=== PATIENT | male | born 1950 | race Caucasian/White ===

== ENCOUNTER 2018-06-14 11:33 | Emergency (ER) | payer MEDICARE ==
[2018-06-14] MEDS ORDERED: KETOROLAC 30 MG/ML 1 ML VIAL IVP STA (12:22)
--- NOTE | 2018-06-14 12:22 | ED ---
General Adult HPI - General Chief complaint: Recheck/Abnormal Lab/Rx Stated complaint: DIABETIC NERVE PAIN IN BOTH LEGS Time Seen by Provider: 06/14/18 11:58 Source: patient, family, RN notes reviewed Mode of arrival: wheelchair Limitations: physical limitation - History of Present Illness Initial comments: This is a 66-year-old male history diabetes and chronic neuropathic pain in his lower extremities for the past 6 years who is here today because of persistent pain that is unbearable. He states is 10/10 severity sharp going down both legs he states it hurts to stand up her hurts to move. He denies a loss of function however to his lower extremities dysuria hematuria or constipation or back pain. 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 He has been on different medications including Lyrica for over a year without relief - Related Data Home Medications Medication Instructions Recorded Confirmed Aspirin EC [Ecotrin] 325 mg PO DAILY 02/17/16 06/14/18 Hydroxyurea [Hydrea] 1,000 mg PO MOTUWETHFR 02/17/16 06/14/18 Insulin Glargine [Lantus] 35 unit SQ DAILY 02/17/16 06/14/18 Metoprolol Tartrate [Lopressor] 50 mg PO BID 02/17/16 06/14/18 amLODIPine BESYLATE [Norvasc] 10 mg PO DAILY 02/17/16 06/14/18 metFORMIN HCL [Glucophage] 500 mg PO BID 02/17/16 06/14/18 Clopidogrel [Plavix] 75 mg PO DAILY 03/11/16 06/14/18 Ferrous Sulfate [Iron (65 MG 325 mg PO HS 03/11/16 06/14/18 Elemental)] Cyanocobalamin (Vitamin B-12) 1,000 mcg PO MOWEFR 06/14/18 06/14/18 [Vitamin B-12] Hydroxyurea 500 mg PO SUSA 06/14/18 06/14/18 Levothyroxine Sodium [Synthroid] 125 mcg PO DAILY 06/14/18 06/14/18 Previous Rx's Medication Instructions Recorded methylPREDNISolone Dose Pack 4 mg PO DIRECTED #21 package 06/14/18 [Medrol Dose Pack] Allergies Allergy/AdvReac Type Severity Reaction Status Date / Time No Known Allergies Allergy Verified 06/14/18 13:14 Review of Systems ROS Statement: Those systems with pertinent positive or pertinent negative responses have been documented in the HPI. ROS Other: All systems not noted in ROS Statement are negative. Past Medical History Past Medical History: CVA/TIA, Diabetes Mellitus, Hyperlipidemia, Hypertension, Myocardial Infarction ([place]), Neurologic Disorder, Pneumonia, Thyroid Disorder Additional Past Medical History / Comment(s): Pt has AMS so PMH obtained from previous medical record and speaking with spouse and pt's sister. Pt recently admitted to [facility] on 02/18/16 and had cardiac cath-was transferred to [facility] for CABG and aortic valve replacement. 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 Last Myocardial Infarction Date:: 02/17/2016 History of Any Multi-Drug Resistant Organisms: None Reported Past Surgical History: Coronary Bypass/CABG, Heart Catheterization, Orthopedic Surgery Additional Past Surgical History / Comment(s): 02/19/16 cardiac cath, 02/24/16 CABG quadrupal with aortic valve replacement, RT HAND INDEX FINGER BONE CHIP REMOVED, RT WRIST(JAMMED) PT STATED THEY CUT THE BONE AND REALIGNED IT. Past Anesthesia/Blood Transfusion Reactions: No Reported Reaction Past Psychological History: No Psychological Hx Reported Smoking Status: Current every day smoker Past Alcohol Use History: Heavy Past Drug Use History: None Reported - Past Family History Father Family Medical History: Coronary Artery Disease (CAD) Additional Family Medical History / Comment(s): VASCULAR PROBLEMS/valve replacement. Mother Family Medical History: Coronary Artery Disease (CAD) Additional Family Medical History / Comment(s): VASCULAR PROBLEMS HAD PIG VALVE. General Exam - General Exam Comments Initial Comments: This is a well-developed well-nourished awake alert oriented 3 male Limitations: physical limitation General appearance: alert, anxious Head exam: Present: atraumatic, normocephalic, normal inspection Eye exam: Present: normal appearance, PERRL, EOMI. Absent: scleral icterus, conjunctival injection, periorbital swelling ENT exam: Present: normal exam, mucous membranes moist Neck exam: Present: normal inspection. Absent: tenderness, meningismus, lymphadenopathy Respiratory exam: Present: normal lung sounds bilaterally. Absent: respiratory distress, wheezes, rales, rhonchi, stridor Cardiovascular Exam: Present: regular rate, normal rhythm, normal heart sounds. Absent: systolic murmur, diastolic murmur, rubs, gallop, clicks GI/Abdominal exam: Present: soft, normal bowel sounds. Absent: distended, tenderness, guarding, rebound, rigid Extremities exam: Present: normal inspection, full ROM, tenderness, normal capillary refill, other (Tenderness palpation over the gluteus musculature especially on the right compared to the left.). Absent: pedal edema, joint swelling, calf tenderness Back exam: Present: normal inspection Neurological exam: Present: alert, oriented X3, CN II-XII intact Psychiatric exam: Present: normal affect, normal mood Skin exam: Present: warm, dry, intact, normal color. Absent: rash Course Vital Signs 06/14/18 06/14/18 11:54 13:50 Temperature 98.1 F Pulse Rate 80 79 Respiratory 20 18 Rate Blood Pressure 138/80 142/77 O2 Sat by Pulse 99 98 Oximetry Medical Decision Making - Medical Decision Making I did discuss findings with patient has he is feeling improved be placed on steroids and will follow-up with his doctor outpatient. Besides neuropathic pain there is likely a component of sciatica pain. - Lab Data Result diagrams: 06/14/18 12:31 06/14/18 12:31 Lab Results 06/14/18 06/14/18 06/14/18 Range/Units 12:31 12:31 12:31 WBC 3.6 L (3.8-10.6) k/uL RBC 3.00 L (4.30-5.90) m/uL Hgb 11.7 L (13.0-17.5) gm/dL Hct 34.8 L (39.0-53.0) % MCV 116.3 H (80.0-100.0) fL MCH 39.2 H (25.0-35.0) pg MCHC 33.7 (31.0-37.0) g/dL RDW 14.8 (11.5-15.5) % Plt Count 345 (150-450) k/uL Neutrophils % 57 % Lymphocytes % 23 % Monocytes % 6 % Eosinophils % 11 % Basophils % 0 % Neutrophils # 2.1 (1.3-7.7) k/uL Lymphocytes # 0.8 L (1.0-4.8) k/uL Monocytes # 0.2 (0-1.0) k/uL Eosinophils # 0.4 (0-0.7) k/uL Basophils # 0.0 (0-0.2) k/uL Polychromasia Present Poikilocytosis (manual Present Anisocytosis (manual) Present Macrocytosis Marked Sodium 138 (137-145) mmol/L Potassium 3.9 (3.5-5.1) mmol/L Chloride 108 H (98-107) mmol/L Carbon Dioxide 21 L (22-30) mmol/L Anion Gap 9 mmol/L BUN 24 H (9-20) mg/dL Creatinine 1.20 (0.66-1.25) mg/dL Est GFR (CKD-EPI)AfAm 71 (>60 ml/min/1.73 sqM) Est GFR (CKD-EPI)NonAf 62 (>60 ml/min/1.73 sqM) Glucose 326 H (74-99) mg/dL Calcium 9.4 (8.4-10.2) mg/dL Magnesium 1.6 (1.6-2.3) mg/dL Total Bilirubin 0.3 (0.2-1.3) mg/dL AST 15 L (17-59) U/L ALT 24 (21-72) U/L Alkaline Phosphatase 105 (38-126) U/L Total Creatine Kinase 35 L (55-170) U/L CK-MB (CK-2) 1.0 (0.0-2.4) ng/mL CK-MB (CK-2) Rel Index 2.9 Total Protein 6.1 L (6.3-8.2) g/dL Albumin 3.6 (3.5-5.0) g/dL - Radiology Data Radiology results: report reviewed (I did review the imaging and report evidence of degenerative changes but no acute findings.), image reviewed Disposition Clinical Impression: Sciatica, Peripheral neuropathy Disposition: HOME SELF-CARE Condition: Good Instructions: Sciatica (ED), Diabetic Peripheral Neuropathy (ED), Peripheral Neuropathy (ED) Prescriptions: methylPREDNISolone Dose Pack [Medrol Dose Pack] 4 mg PO DIRECTED #21 package Is patient prescribed a controlled substance at d/c from ED?: No Referrals: [facility],Clinic [Primary Care Provider] - 1-2 days
[2018-06-14 12:45] LABS: Basophils % (A) 0 %; Eosinophils # (A) 0.4 k/uL (0-0.7); Eosinophils % (A) 11 %; HCT 34.8 % (39.0-53.0); HGB 11.7 gm/dL (13.0-17.5); Lymphocytes # (A) 0.8 k/uL (1.0-4.8); Lymphocytes % (A) 23 %; MCH 39.2 pg (25.0-35.0); MCHC 33.7 g/dL (31.0-37.0); MCV 116.3 fL (80.0-100.0); Macrocytosis Marked; Mean Platelet Volume 6.4; Monocytes # (A) 0.2 k/uL (0-1.0); Monocytes % (A) 6 %; Neutrophils # (A) 2.1 k/uL (1.3-7.7); Neutrophils % (A) 57 %; Platelet Count 345 k/uL (150-450); RDW 14.8 % (11.5-15.5); WBC 3.6 k/uL (3.8-10.6)
[2018-06-14 12:58] LABS: Albumin 3.6 g/dL (3.5-5.0); Calcium 9.4 mg/dL (8.4-10.2); Magnesium 1.6 mg/dL (1.6-2.3); Potassium 3.9 mmol/L (3.5-5.1); Total Bilirubin 0.3 mg/dL (0.2-1.3); Total Protein 6.1 g/dL (6.3-8.2)
--- NOTE | 2018-06-14 13:16 | XR ---
EXAM TYPE: LUMBAR SPINE X RAY SERIES COMPARISON: NONE HISTORY: Back pain TECHNIQUE: 4 views are submitted. FINDINGS: Alignment is anatomic. The pedicles are intact. The transverse processes are intact. There is no s pondylolysis or spondylolisthesis. Multilevel hypertrophic and degenerative disc disease noted. Vasc ular calcifications are noted. Calcifications overlying both upper quadrants could be related to the kidneys. Mild diffuse osteopenia and multilevel degenerative disc disease noted. IMPRESSION: 1. Multilevel degenerative disc disease and hypertrophic changes with facet arthropathy. 2. Bilateral upper quadrant calcifications likely related to the kidneys.
[2018-06-14 13:33] LABS: Anisocytosis (M) Present; Poikilocytosis (M) Present; Polychromasia Present
[2018-06-14 13:51] VITALS: BP 142/77; PULSE 79; RESP 18
[2018-06-14] MEDS ORDERED: methylPREDNISolone SOD SUCCI 125 MG/2 ML VIAL IV STA (13:56)
[2018-06-14 14:39] VITALS: TEMP 97.9
== END 2018-06-14 14:37 | disposition home or self-care (01) ==
LOC: EC 11:33
DX: E11.42 Type 2 diabetes mellitus with diabetic polyneuropathy (principal); M54.31 Sciatica, right side; E78.5 Hyperlipidemia, unspecified; I10 Essential (primary) hypertension; I25.2 Old myocardial infarction; E03.9 Hypothyroidism, unspecified; F17.200 Nicotine dependence, unspecified, uncomplicated; Z95.1 Presence of aortocoronary bypass graft; Z95.2 Presence of prosthetic heart valve; Z98.890 Other specified postprocedural states; Z79.02 Long term (current) use of antithrombotics/antiplatelets; Z79.4 Long term (current) use of insulin; Z79.899 Other long term (current) drug therapy
CPT/HCPCS: 36415; 80053; 82550; 82553; 83735; 85025; 72110; 99283; 96374; 96375; J2930; J1885

== ENCOUNTER 2018-06-25 23:26 | Emergency (ER) | payer MEDICARE ==
[2018-06-25 23:30] VITALS: BP 173/88; PULSE 90; RESP 16; TEMP 98.4
[2018-06-25] MEDS ORDERED: LIDOCAINE 1% INJ 10MG/ML (20 ML MDV) SQ ONE (23:42)
[2018-06-26] MEDS ORDERED: DOXYCYCLINE MONOHYDRATE 100 MG CAPSULE PO STA (00:01)
--- NOTE | 2018-06-26 00:03 | ED ---
Skin/Abscess/FB HPI - General Chief complaint: Skin/Abscess/Foreign Body Stated complaint: Male Time Seen by Provider: 06/25/18 23:37 Source: patient Mode of arrival: wheelchair Limitations: no limitations - History of Present Illness Initial comments: 67-year-old male patient presents the emergency department today for evaluation of an abscess to his penile shaft. Patient states that it started as a pimple approximately 3 days ago and has been growing in size and becoming more painful since. Patient denies any drainage from the area. He denies any fevers or chills. Denies any difficulty with urination. Denies any history of similar symptoms. Does have a history of diabetes and hypertension. Patient denies any recent shortness breath, chest pain, abdominal pain, nausea, vomiting, diarrhea , constipation, back pain, numbness, tingling, dizziness, weakness, hematuria, dysuria, urinary urgency, urinary frequency, headache, visual changes, or any other complaints. - Related Data Home Medications Medication Instructions Recorded Confirmed Aspirin EC [Ecotrin] 325 mg PO DAILY 02/17/16 06/14/18 Hydroxyurea [Hydrea] 1,000 mg PO MOTUWETHFR 02/17/16 06/14/18 Insulin Glargine [Lantus] 35 unit SQ DAILY 02/17/16 06/14/18 Metoprolol Tartrate [Lopressor] 50 mg PO BID 02/17/16 06/14/18 amLODIPine BESYLATE [Norvasc] 10 mg PO DAILY 02/17/16 06/14/18 metFORMIN HCL [Glucophage] 500 mg PO BID 02/17/16 06/14/18 Clopidogrel [Plavix] 75 mg PO DAILY 03/11/16 06/14/18 Ferrous Sulfate [Iron (65 MG 325 mg PO HS 03/11/16 06/14/18 Elemental)] Cyanocobalamin (Vitamin B-12) 1,000 mcg PO MOWEFR 06/14/18 06/14/18 [Vitamin B-12] Hydroxyurea 500 mg PO SUSA 06/14/18 06/14/18 Levothyroxine Sodium [Synthroid] 125 mcg PO DAILY 06/14/18 06/14/18 Previous Rx's Medication Instructions Recorded methylPREDNISolone Dose Pack 4 mg PO DIRECTED #21 package 06/14/18 [Medrol Dose Pack] Doxycycline Hyclate 100 mg PO BID #20 tab 06/26/18 Allergies Allergy/AdvReac Type Severity Reaction Status Date / Time No Known Allergies Allergy Verified 06/25/18 23:30 Review of Systems ROS Statement: Those systems with pertinent positive or pertinent negative responses have been documented in the HPI. ROS Other: All systems not noted in ROS Statement are negative. Past Medical History Past Medical History: CVA/TIA, Diabetes Mellitus, Hyperlipidemia, Hypertension, Myocardial Infarction ([place]), Neurologic Disorder, Pneumonia, Thyroid Disorder Additional Past Medical History / Comment(s): Pt has AMS so PMH obtained from previous medical record and speaking with spouse and pt's sister. Pt recently admitted to [facility] on 02/18/16 and had cardiac cath-was transferred to [facility] for CABG and aortic valve replacement. 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 Last Myocardial Infarction Date:: 02/17/2016 History of Any Multi-Drug Resistant Organisms: None Reported Past Surgical History: Coronary Bypass/CABG, Heart Catheterization, Orthopedic Surgery Additional Past Surgical History / Comment(s): 02/19/16 cardiac cath, 02/24/16 CABG quadrupal with aortic valve replacement, RT HAND INDEX FINGER BONE CHIP REMOVED, RT WRIST(JAMMED) PT STATED THEY CUT THE BONE AND REALIGNED IT. Past Anesthesia/Blood Transfusion Reactions: No Reported Reaction Past Psychological History: No Psychological Hx Reported Smoking Status: Former smoker Past Alcohol Use History: None Reported Past Drug Use History: None Reported - Past Family History Father Family Medical History: Coronary Artery Disease (CAD) Additional Family Medical History / Comment(s): VASCULAR PROBLEMS/valve replacement. Mother Family Medical History: Coronary Artery Disease (CAD) Additional Family Medical History / Comment(s): VASCULAR PROBLEMS HAD PIG VALVE. General Exam Limitations: no limitations General appearance: alert, in no apparent distress Eye exam: Present: normal appearance, PERRL, EOMI. Absent: scleral icterus, conjunctival injection, periorbital swelling ENT exam: Present: normal exam, normal oropharynx, mucous membranes moist Respiratory exam: Present: normal lung sounds bilaterally. Absent: respiratory distress, wheezes, rales, rhonchi, stridor Cardiovascular Exam: Present: regular rate, normal rhythm, normal heart sounds. Absent: systolic murmur, diastolic murmur, rubs, gallop, clicks exam: Present: other (1cm abscess to the foreskin of the penis.) Neurological exam: Present: alert, oriented X3, CN II-XII intact Psychiatric exam: Present: normal affect, normal mood Skin exam: Present: warm, dry, intact, normal color. Absent: rash Course Vital Signs 06/25/18 23:27 Temperature 98.4 F Pulse Rate 90 Respiratory 16 Rate Blood Pressure 173/88 O2 Sat by Pulse 97 Oximetry Procedures - Incision & Drainage Indication: abscess Site: penis Size (cm): 1 Anesthetic Used: lidocaine 1% Amount (mLs): 1 I&D Cleaning Method: Betadine Needle Aspiration Performed?: Yes Irrigation Performed?: No I&D Drainage Obtained: Pus, Blood Culture Obtained?: Yes Patient Tolerated Procedure: well Medical Decision Making - Medical Decision Making 67-year-old male patient presents the emergency department today for evaluation of abscess to the foreskin of his penis. Physical examination did reveal a 1 cm abscess to the foreskin with minimal surrounding erythema. Area was fluctuant. Did puncture abscess with 18-gauge needle did get output of: Bloody drainage. Did obtain a culture. Patient tolerated procedure well. The patient will be discharged home to follow-up with urologist for further evaluation. He is instructed to complete antibiotic prescription and full. Did educate regarding application of warm compresses. Return parameters discussed in detail. He verbalizes understanding and agrees with this plan. Disposition Clinical Impression: Penile abscess Disposition: HOME SELF-CARE Condition: Good Instructions: Abscess Incision and Drainage (ED), Abscess (ED) Additional Instructions: Apply warm compresses to the area at least 4 times daily. Complete antibiotic prescription in full. Follow-up with urology for recheck in 1-2 days. Return here immediately for any new, worsening, or concerning symptoms. Prescriptions: Doxycycline Hyclate 100 mg PO BID #20 tab Is patient prescribed a controlled substance at d/c from ED?: No Referrals: [facility],Clinic [Primary Care Provider] - 1-2 days Time of Disposition: 00:03
== END 2018-06-26 00:21 | disposition home or self-care (01) ==
LOC: EC 23:26
DX: N48.21 Abscess of corpus cavernosum and penis (principal); E11.9 Type 2 diabetes mellitus without complications; E78.5 Hyperlipidemia, unspecified; I10 Essential (primary) hypertension; I25.2 Old myocardial infarction; E03.9 Hypothyroidism, unspecified; Z86.73 Personal history of transient ischemic attack (TIA), and cerebral infarction without residual deficits; Z87.891 Personal history of nicotine dependence; Z79.4 Long term (current) use of insulin; Z79.01 Long term (current) use of anticoagulants; Z79.82 Long term (current) use of aspirin; Z79.899 Other long term (current) drug therapy; Z95.1 Presence of aortocoronary bypass graft; Z95.2 Presence of prosthetic heart valve; Z95.818 Presence of other cardiac implants and grafts; Z82.49 Family history of ischemic heart disease and other diseases of the circulatory system
CPT/HCPCS: 87070; 87205; 99283; 10060; J2001

== ENCOUNTER 2018-07-04 18:29 | Inpatient (IN) | payer MEDICARE ==
[2018-07-04] MEDS ORDERED: METOPROLOL TARTRATE 5 MG/5 ML VIAL IVP STA (18:38)
[2018-07-04] MEDS: METOPROLOL TARTRATE 5 MG/5 ML VIAL IVP SCH ×3 (18:47→19:13)
[2018-07-04 18:55] LABS: Basophils % (A) 0 %; Eosinophils # (A) 0.3 k/uL (0-0.7); Eosinophils % (A) 6 %; HCT 35.4 % (39.0-53.0); HGB 11.4 gm/dL (13.0-17.5); Lymphocytes # (A) 1.2 k/uL (1.0-4.8); Lymphocytes % (A) 27 %; MCH 36.9 pg (25.0-35.0); MCHC 32.3 g/dL (31.0-37.0); MCV 114.4 fL (80.0-100.0); Macrocytosis Marked; Mean Platelet Volume 6.6; Monocytes # (A) 0.3 k/uL (0-1.0); Monocytes % (A) 7 %; Neutrophils # (A) 2.6 k/uL (1.3-7.7); Neutrophils % (A) 57 %; Platelet Count 367 k/uL (150-450); RBC 3.09 m/uL (4.30-5.90); RDW 14.6 % (11.5-15.5); WBC 4.6 k/uL (3.8-10.6)
[2018-07-04 18:56] LABS: Prothrombin Time 9.6 sec (9.0-12.0)
[2018-07-04 19:05] LABS: Albumin 3.8 g/dL (3.5-5.0); Magnesium 1.5 mg/dL (1.6-2.3); Partial Thromboplastin Time 19.9 sec (22.0-30.0); Potassium 3.3 mmol/L (3.5-5.1); Total Bilirubin 0.4 mg/dL (0.2-1.3); Total Protein 6.6 g/dL (6.3-8.2)
--- NOTE | 2018-07-04 19:09 | ED ---
General Adult HPI - General Chief complaint: Chest Pain Stated complaint: STEMI Time Seen by Provider: 07/04/18 18:34 Source: patient, EMS, RN notes reviewed, old records reviewed Mode of arrival: EMS Limitations: no limitations - History of Present Illness Initial comments: 67-year-old male presenting for evaluation of chest pain. Patient is transported by EMS. He states he's had chest pain for the past 12-24 hours. This has intensified throughout the past several hours. This is associated with some nausea. Patient was noted by EMS to be diaphoretic. He does have history of CAD status post CABG. He is a diabetic, history of hypertension, and he is currently smoking. Patient's pain is substernal, nonradiating. - Related Data Home Medications Medication Instructions Recorded Confirmed Aspirin EC [Ecotrin] 325 mg PO DAILY 02/17/16 07/04/18 Hydroxyurea [Hydrea] 1,000 mg PO [id number] 02/17/16 07/04/18 Insulin Glargine [Lantus] 35 unit SQ DAILY 02/17/16 07/04/18 Metoprolol Tartrate [Lopressor] 50 mg PO BID 02/17/16 07/04/18 amLODIPine BESYLATE [Norvasc] 10 mg PO DAILY 02/17/16 07/04/18 metFORMIN HCL [Glucophage] 500 mg PO BID 02/17/16 07/04/18 Clopidogrel [Plavix] 75 mg PO DAILY 03/11/16 07/04/18 Ferrous Sulfate [Iron (65 MG 325 mg PO DAILY 03/11/16 07/04/18 Elemental)] Hydroxyurea 500 mg PO SUSA 06/14/18 07/04/18 Levothyroxine Sodium [Synthroid] 125 mcg PO DAILY 06/14/18 07/04/18 Atorvastatin [Lipitor] 20 mg PO HS 07/04/18 07/04/18 Pregabalin [Lyrica] 200 mg PO BID 07/04/18 07/04/18 Venlafaxine HCl [Effexor XR] 75 mg PO HS 07/04/18 07/04/18 prednisoLONE ACETATE 1% OPHTH 1 drops RIGHT EYE Q4HR 07/04/18 07/04/18 [Pred Forte 1%] Allergies Allergy/AdvReac Type Severity Reaction Status Date / Time No Known Allergies Allergy Verified 07/04/18 19:29 Review of Systems ROS Statement: Those systems with pertinent positive or pertinent negative responses have been documented in the HPI. ROS Other: All systems not noted in ROS Statement are negative. Past Medical History Past Medical History: CVA/TIA, Diabetes Mellitus, Hyperlipidemia, Hypertension, Myocardial Infarction ([place]), Neurologic Disorder, Pneumonia, Thyroid Disorder Additional Past Medical History / Comment(s): Pt has AMS so PMH obtained from previous medical record and speaking with spouse and pt's sister. Pt recently admitted to [facility] on 02/18/16 and had cardiac cath-was transferred to [facility] for CABG and aortic valve replacement. 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 Last Myocardial Infarction Date:: 02/17/2016 History of Any Multi-Drug Resistant Organisms: None Reported Past Surgical History: Coronary Bypass/CABG, Heart Catheterization, Orthopedic Surgery Additional Past Surgical History / Comment(s): 02/19/16 cardiac cath, 02/24/16 CABG quadrupal with aortic valve replacement, RT HAND INDEX FINGER BONE CHIP REMOVED, RT WRIST(JAMMED) PT STATED THEY CUT THE BONE AND REALIGNED IT. Past Anesthesia/Blood Transfusion Reactions: No Reported Reaction Past Psychological History: No Psychological Hx Reported Smoking Status: Former smoker Past Alcohol Use History: None Reported Past Drug Use History: None Reported - Past Family History Father Family Medical History: Coronary Artery Disease (CAD) Additional Family Medical History / Comment(s): VASCULAR PROBLEMS/valve replacement. Mother Family Medical History: Coronary Artery Disease (CAD) Additional Family Medical History / Comment(s): VASCULAR PROBLEMS HAD PIG VALVE. General Exam Limitations: no limitations General appearance: alert, in no apparent distress Head exam: Present: atraumatic, normocephalic Eye exam: Present: normal appearance, PERRL ENT exam: Present: normal exam Neck exam: Present: normal inspection. Absent: tenderness, meningismus Respiratory exam: Present: normal lung sounds bilaterally. Absent: respiratory distress, wheezes, rales Cardiovascular Exam: Present: tachycardia, irregular rhythm GI/Abdominal exam: Present: soft. Absent: distended, tenderness, guarding Extremities exam: Present: normal capillary refill, pedal edema Back exam: Present: normal inspection Neurological exam: Present: alert, oriented X3, CN II-XII intact. Absent: motor sensory deficit Psychiatric exam: Present: normal affect, normal mood Skin exam: Present: warm, intact, diaphoretic. Absent: cyanosis Course Vital Signs 07/04/18 07/04/18 07/04/18 18:31 18:58 19:44 Temperature Pulse Rate 117 H 108 H 105 H Respiratory 18 18 Rate Blood Pressure 190/88 181/86 167/85 O2 Sat by Pulse 98 94 L 94 L Oximetry 07/04/18 20:12 Temperature 99.1 F Pulse Rate 114 H Respiratory 18 Rate Blood Pressure 146/96 O2 Sat by Pulse 96 Oximetry - Reevaluation(s) Reevaluation #1: 07/04/181854 Case discussed with cardiology on-call, Dr. Weber, recommend heparin, no ST segment elevated [place]. Reevaluation #2: 07/04/181954 On reevaluation, patient is chest pain-free. EKG Findings - EKG Comments: EKG Findings:: EKG: Obtained at 1833, atrial fibrillation with RVR and PVC, left axis deviation, ST segment depression in the lateral precordium as well as lead 1. Rate of 117, QRS duration 122, QTC 382. EKG: Obtained at 1851, atrial fibrillation with RVR, left axis deviation, left ventricular hypertrophy, rate of 101, QRS duration 1:30, QTC 342, no ST segment elevation. There is ST segment depression in lead 1 and the lateral precordial leads. Medical Decision Making - Medical Decision Making 67-year-old male presenting with central chest pain and cage he changes. Patient's symptoms are typical. He is in A. fib with RVR, given metoprolol in the emergency department for rate control. Patient's symptoms improved with rate control. He was given aspirin by EMS prior to arrival. Patient has no reported history of atrial fibrillation. Case is discussed with cardiology on- call, he is started on heparin. He will be continued on oral metoprolol for rate control. Serial cardiac enzymes will be obtained. Chest x-ray is negative for any acute cardiopulmonary disease. Patient has normal white blood cell count, stable hemoglobin, creatinine is 2.49 which is elevated from baseline of 1.2. Calcium is also high at 14.4. Troponin elevated 0.048. Patient's potassium is low and is replaced, magnesium is low and is replaced. Patient will be continued on IV hydration for hypercalcemia and acute kidney injury. Troponin will be trended. - Lab Data Result diagrams: 07/04/18 18:36 07/04/18 18:36 Lab Results 07/04/18 07/04/18 07/04/18 Range/Units 18:36 18:36 18:36 WBC 4.6 (3.8-10.6) k/uL RBC 3.09 L (4.30-5.90) m/uL Hgb 11.4 L (13.0-17.5) gm/dL Hct 35.4 L (39.0-53.0) % MCV 114.4 H (80.0-100.0) fL MCH 36.9 H (25.0-35.0) pg MCHC 32.3 (31.0-37.0) g/dL RDW 14.6 (11.5-15.5) % Plt Count 367 (150-450) k/uL Neutrophils % 57 % Lymphocytes % 27 % Monocytes % 7 % Eosinophils % 6 % Basophils % 0 % Neutrophils # 2.6 (1.3-7.7) k/uL Lymphocytes # 1.2 (1.0-4.8) k/uL Monocytes # 0.3 (0-1.0) k/uL Eosinophils # 0.3 (0-0.7) k/uL Basophils # 0.0 (0-0.2) k/uL Macrocytosis Marked PT (9.0-12.0) sec INR (<1.2) APTT (22.0-30.0) sec Sodium 137 (137-145) mmol/L Potassium 3.3 L (3.5-5.1) mmol/L Chloride 99 (98-107) mmol/L Carbon Dioxide 27 (22-30) mmol/L Anion Gap 11 mmol/L BUN 36 H (9-20) mg/dL Creatinine 2.49 H (0.66-1.25) mg/dL Est GFR (CKD-EPI)AfAm 29 (>60 ml/min/1.73 sqM) Est GFR (CKD-EPI)NonAf 25 (>60 ml/min/1.73 sqM) Glucose 171 H (74-99) mg/dL Calcium 14.4 H* (8.4-10.2) mg/dL Magnesium 1.5 L (1.6-2.3) mg/dL Total Bilirubin 0.4 (0.2-1.3) mg/dL AST 21 (17-59) U/L ALT 24 (21-72) U/L Alkaline Phosphatase 130 H (38-126) U/L Total Creatine Kinase 80 (55-170) U/L CK-MB (CK-2) 1.5 (0.0-2.4) ng/mL CK-MB (CK-2) Rel Index 1.9 Troponin I 0.048 H* (0.000-0.034) ng/mL NT-Pro-B Natriuret Pep pg/mL Total Protein 6.6 (6.3-8.2) g/dL Albumin 3.8 (3.5-5.0) g/dL 07/04/18 07/04/18 Range/Units 18:36 18:36 WBC (3.8-10.6) k/uL RBC (4.30-5.90) m/uL Hgb (13.0-17.5) gm/dL Hct (39.0-53.0) % MCV (80.0-100.0) fL MCH (25.0-35.0) pg MCHC (31.0-37.0) g/dL RDW (11.5-15.5) % Plt Count (150-450) k/uL Neutrophils % % Lymphocytes % % Monocytes % % Eosinophils % % Basophils % % Neutrophils # (1.3-7.7) k/uL Lymphocytes # (1.0-4.8) k/uL Monocytes # (0-1.0) k/uL Eosinophils # (0-0.7) k/uL Basophils # (0-0.2) k/uL Macrocytosis PT 9.6 (9.0-12.0) sec INR 1.0 (<1.2) APTT 19.9 L (22.0-30.0) sec Sodium (137-145) mmol/L Potassium (3.5-5.1) mmol/L Chloride (98-107) mmol/L Carbon Dioxide (22-30) mmol/L Anion Gap mmol/L BUN (9-20) mg/dL Creatinine (0.66-1.25) mg/dL Est GFR (CKD-EPI)AfAm (>60 ml/min/1.73 sqM) Est GFR (CKD-EPI)NonAf (>60 ml/min/1.73 sqM) Glucose (74-99) mg/dL Calcium (8.4-10.2) mg/dL Magnesium (1.6-2.3) mg/dL Total Bilirubin (0.2-1.3) mg/dL AST (17-59) U/L ALT (21-72) U/L Alkaline Phosphatase (38-126) U/L Total Creatine Kinase (55-170) U/L CK-MB (CK-2) (0.0-2.4) ng/mL CK-MB (CK-2) Rel Index Troponin I (0.000-0.034) ng/mL NT-Pro-B Natriuret Pep 2310 pg/mL Total Protein (6.3-8.2) g/dL Albumin (3.5-5.0) g/dL Critical Care Time Critical Care Time: Yes Total Critical Care Time: 35 Disposition Clinical Impression: NSTEMI (non-ST elevated myocardial infarction), Atrial fibrillation with RVR Disposition: ADMITTED IP TO THIS HOSP Condition: Serious Is patient prescribed a controlled substance at d/c from ED?: No Referrals: [facility] [Primary Care Provider] - 1-2 days Decision to Admit Reason: Admit from EC Decision Date: 07/04/18 Decision Time: 20:28
[2018-07-04 19:16] LABS: Calcium 14.4 mg/dL (8.4-10.2); Creatine Kinase MB 1.5 ng/mL (0.0-2.4)
[2018-07-04 19:18] LABS: Troponin I 0.048 ng/mL (0.000-0.034)
[2018-07-04] MEDS ORDERED: HEPARIN SODIUM,PORCINE 5,000 UNIT/ML 1 ML VIAL IV ONE (19:19)
[2018-07-04] MEDS ORDERED: METOPROLOL TARTRATE 25 MG TAB PO STA (19:37)
[2018-07-04] MEDS ORDERED: MAGNESIUM SULFATE-D5W PMX 1 GM in DEXTROSE/WATER 1 100ML.BAG IVPB ONE (19:37)
[2018-07-04] MEDS ORDERED: POTASSIUM CHLORIDE ER 20 MEQ TAB.ER PO STA (19:38)
[2018-07-04] MEDS: SODIUM CHLORIDE 0.9% 1,000 ML IV SCH (19:59)
[2018-07-04] MEDS: HEPARIN SOD,PORK IN 0.45% NACL 25,000 UNIT in 0.45% NACL 1 500ML.BAG IV SCH (20:06)
[2018-07-04] MEDS ORDERED: SODIUM CHLORIDE 0.9% 500 ML IV ONE (20:09)
--- NOTE | 2018-07-04 20:13 | XR ---
EXAMINATION: XR chest 1V portable DATE AND TIME: 07/04/2018 7:22 PM ORDERING PROVIDER: Bassem Paniagua MD CLINICAL INDICATION: chest pain TECHNIQUE: AP upright portable COMPARISON: 03/11/2016 DESCRIPTION: The lungs are clear, except for minimal airlessness left base, likely subsegmental atelectasis. The pleural spaces are negative. Sternal sutures are noted. The cardiac silhouette appears mildly enlarged. The skeletal structures are intact without acute findings. Remodeled old left rib fractures appreciat ed. The soft tissues are negative for acute findings. IMPRESSION: NO DEFINITE ACUTE RADIOGRAPHIC PROCESS.
[2018-07-04] MEDS ORDERED: ACETAMINOPHEN TAB 325 MG TAB PO PRN (20:21)
[2018-07-04] MEDS ORDERED: MORPHINE SULFATE 4 MG/ML SYRINGE IV PRN (20:21)
[2018-07-04] MEDS ORDERED: NALOXONE 0.4 MG/ML 1 ML VIAL IV PRN (20:21)
[2018-07-04] MEDS ORDERED: NITROGLYCERIN-D5W PMX 50 MG in DEXTROSE/WATER 1 250ML.BAG IV ONE (20:28)
[2018-07-04] MEDS ORDERED: ATORVASTATIN 20 MG TAB PO SCH (21:00)
[2018-07-04] MEDS ORDERED: METOPROLOL TARTRATE 25 MG TAB PO SCH (22:00)
[2018-07-04] MEDS ORDERED: ALPRAZolam 0.25 MG TAB PO PRN (22:31)
[2018-07-04] MEDS ORDERED: HYDROcodone/APAP 5-325MG 1 EACH TAB PO PRN (22:31)
--- NOTE | 2018-07-04 23:44 | HP ---
HISTORY AND PHYSICAL DATE OF SERVICE: 07/04/2018 CHIEF COMPLAINT: Chest pain and atrial fibrillation. HISTORY OF PRESENT ILLNESS: This 67-year-old gentleman with a past medical history of multiple medical issues, including CVA, TIA, history of diabetes, hypertension, hyperlipidemia, history of myocardial infarction, CAD, CABG , also being followed by [facility] and Dr. Milligan in the outpatient setting was noted to have chest pain. The pain is mostly in the left side of the chest, which is sharp in character, and the patient came to [facility] and was admitted for further evaluation and treatment. The pain was for 12-24 hours, intensified over the past several hours. The patient also had diaphoresis noted by the EMS. The patient's EKG showed ST-T changes and the patient was admitted for further evaluation and treatment. The calcium was 14.4. Otherwise troponin was 0.048. There is no history of any fever, rigors. No history of headache, loss of consciousness, seizures. PAST MEDICAL HISTORY: CAD, CABG, history of CVA, TIA, diabetes mellitus type 2, history of hypertension, hyperlipidemia, myocardial infarction, history of pneumonia, history of hypothyroidism. MEDICATIONS PRIOR TO ADMISSION: Include home medications are: 1. Lyrica 200 mg p.o. b.i.d. 2. Iron sulfate 320 mg p.o. daily. 4. Synthroid 100 mcg p.o. daily. 5. Prednisone 1 drop right eye q.48 hours. 6. Glucophage 500 mg p.o. daily. 7. Lantus 35 units subcu daily. 8. Hydroxyurea 500 mg p.o. Tuesday, Tuesday. 9. Lipitor 20 mg q.h.s. 10.Norvasc 10 mg p.o. daily. 11.Lopressor 250 mg p.o. b.i.d. 12.Hydrea 1000 mg p.o. Tuesday, Tuesday, Tuesday, , Tuesday. 13.Plavix 70 mg p.o. daily. 14.Ecotrin 320 mg p.o. daily. ALLERGIES: None. FAMILY HISTORY: History of coronary artery disease with vascular abnormalities in the family. SOCIAL HISTORY: Previous history of smoking. Occasional alcohol intake. REVIEW OF SYSTEMS: ENT: No diminished hearing, diminished vision. CARDIOVASCULAR: As mentioned earlier. RESPIRATORY: As mentioned earlier. GI: No nausea or vomiting. : No dysuria. NERVOUS: No numbness or weakness. ALLERGY/IMMUNOLOGY: No asthma. MUSCULOSKELETAL: As mentioned earlier. HEMATOLOGY/ONCOLOGY: No history of anemia. ENDOCRINE: Hypothyroidism. CONSTITUTIONAL: As mentioned earlier. DERMATOLOGY: Negative. RHEUMATOLOGY: Negative. PSYCHIATRY: As mentioned earlier. PHYSICAL EXAMINATION: Alert, oriented x3. Pulse is 87, blood pressure 165/70, respirations 18. The pulse is going up to 112, the temperature 99.0, pulse ox 96% on 2L. HEENT: Conjunctivae normal. Oral mucosa moist. NECK: No jugular venous distention. No carotid bruits. No lymph node enlargement. CARDIOVASCULAR: S1, S2 irregular. Systolic murmur, tachycardic. RESPIRATORY: Breath sounds diminished in the bases. Scattered rhonchi and expiratory wheezing. ABDOMEN: Soft, nontender. No mass palpable. LEGS: No edema. No swelling. NERVOUS SYSTEM: Higher functions as mentioned earlier. Moves all 4 limbs. Mild diffuse weakness. LYMPHATIC: No lymphadenopathy in neck or axillae. SKIN: No ulcer, rash or bleeding. JOINTS: No active deforming arthropathy. LAB STUDIES: At this time labs WBC 4.6, hemoglobin 7.4. Sodium 136, potassium 3.2, creatinine is 2.49. ASSESSMENT: 1. Chest pain, possible unstable angina, rule out acute non-ST elevation myocardial infarction with troponin 0.048. 2. Atrial fibrillation with a fast ventricular rate. 3. Hypercalcemia. 4. Acute renal failure, possible prerenal acute tubular necrosis. 5. Hypokalemia. 6. Hypomagnesemia. 7. Anemia. 8. Increased MCV. 9. Diabetes mellitus type 2. 10.History of cerebrovascular accident, transient ischemic attack. 11.Hypertension. 12.History of myocardial infarction. 13.History of pneumonia. 14.History of hypothyroidism. 15.History of coronary artery disease, coronary artery bypass grafting. 16.History of stroke with left-sided weakness. 17.History of aortic valve replacement. 18.History of nicotine dependence. RECOMMENDATIONS AND DISCUSSION: In this 67-year-old gentleman who presented with multiple complex medical issues , will monitor the patient closely, continue the current medical management and symptomatic treatment, rule out myocardial infarction, follow with Cardiology and I would also recommend cautious IV hydration, IV heparin and continue to monitor. The heart rate, if it is continuously elevated, Cardizem may be used. Otherwise, continue with antiplatelet agents, beta blockers and I would also recommend repeat labs in the morning. The possibility of non-ST segment elevation myocardial infarction is to be considered and I will keep the patient n.p.o. until he is evaluated by Cardiology, but resume the rest of the medications. The patient also had hypercalcemia, which is a new finding. I would repeat the calcium after hydration. Continue to monitor. Monitor blood sugars closely. Prognosis guarded because of multiple complex medical issues. Further recommendations to follow. Discussed with the rest of the family and all charts were reviewed and a copy of this dictation will be forwarded to Dr. Milligan, who is the primary physician. MMODL / IJN: [id number] / [id number]
[2018-07-05 00:48] LABS: Creatine Kinase MB 24.6 ng/mL (0.0-2.4); Troponin I 7.18 ng/mL (0.000-0.034)
[2018-07-05] MEDS ORDERED: PANTOPRAZOLE 40 MG/10 ML VIAL IVP STA (01:11)
[2018-07-05 06:33] LABS: Prothrombin Time 10.2 sec (9.0-12.0)
[2018-07-05 06:40] LABS: Albumin 2.9 g/dL (3.5-5.0); Magnesium 1.9 mg/dL (1.6-2.3); Phosphorus 3.5 mg/dL (2.5-4.5); Potassium 3.7 mmol/L (3.5-5.1); Total Bilirubin 0.2 mg/dL (0.2-1.3); Total Protein 5.4 g/dL (6.3-8.2)
[2018-07-05 07:03] LABS: Basophils % (A) 0 %; Eosinophils # (A) 0.2 k/uL (0-0.7); Eosinophils % (A) 6 %; HCT 28.3 % (39.0-53.0); Lymphocytes # (A) 0.9 k/uL (1.0-4.8); Lymphocytes % (A) 24 %; MCH 38.1 pg (25.0-35.0); MCHC 32.8 g/dL (31.0-37.0); MCV 116.3 fL (80.0-100.0); Macrocytosis Marked; Mean Platelet Volume 6.4; Monocytes # (A) 0.3 k/uL (0-1.0); Monocytes % (A) 7 %; Neutrophils # (A) 2.3 k/uL (1.3-7.7); Neutrophils % (A) 60 %; Platelet Count 318 k/uL (150-450); RBC 2.44 m/uL (4.30-5.90); RDW 14.7 % (11.5-15.5); WBC 3.8 k/uL (3.8-10.6)
[2018-07-05 07:12] LABS: Calcium 13.5 mg/dL (8.4-10.2)
[2018-07-05 07:24] LABS: HGB 9.3 gm/dL (13.0-17.5)
[2018-07-05 07:28] LABS: Creatine Kinase MB 43.8 ng/mL (0.0-2.4); Troponin I 30.4 ng/mL (0.000-0.034)
[2018-07-05 08:10] LABS: Glucose,Whole Blood 137 mg/dL (75-99)
--- NOTE | 2018-07-05 08:22 | P.CRDCN ---
History of Present Illness Consult date: 07/05/18 Requesting physician: Kendy Camacho Consult reason: non-Q-wave ME, atrial fibrillation Chief complaint: Chest pain History of present illness: This is a 67-year-old gentleman with known history of coronary artery disease, in 2016 patient went to [facility] from here and underwent quadruple bypass by Dr. Moeller with a SANTOS to the LAD, saphenous vein graft to the obtuse marginal 1, saphenous vein graft to the obtuse marginal 2, saphenous vein graft to the distal RCA. Patient also underwent aortic TAVR. Patient does have history of prior CVA, diabetes, hypertension, chronic anemia, hyperlipidemia, history of nicotine dependence. He presents to the hospital on this occasion with a 2-3 duration of chest discomfort. Patient states 2 days ago he was having intermittent chest pain off and on, yesterday he states the pain was quite constant. He presented to the emergency room for further evaluation. Blood pressure on arrival 190/88, heart rate 120, 98% on 2 L of oxygen. Patient was noted to have a low-grade temperature of 99.1. Blood pressure this morning 124/60, heart rate in the 50s. EKG on arrival here showed atrial fibrillation with a moderately rapid ventricular response, nonspecific ST-T wave changes noted subsequent EKG continued to show atrial fibrillation with a rapid ventricular response, ST depression is noted in the anterior lateral leads. This morning's EKG, patient has converted to a normal sinus rhythm, he is actually bradycardic with heart rate in the 40s to 50s. S2 x-ray did not reveal any definite process. White blood cell count 3.8, hemoglobin on arrival 11.4, 9.3 this morning. Sodium 138, potassium 3.7, BUN 36 and creatinine 2.4 on admission, 34 and 2.3 this morning. Calcium level on admission 14, 13 this morning. Magnesium 1.5 on admission, 1.9 this morning. BNP [id number]. Troponins 0.048, 7.1, 30.4. At the time of my examination this morning, patient continues to complain of chest pressure at about a 4. 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 He does state that he has been taking his home medications. His home medications included Lyrica, iron supplementation, Effexor, Synthroid, Glucophage, Lantus, hydroxyurea, Lipitor 20, Norvasc 10, Lopressor 50 twice a day, Plavix 75 mg daily and a full aspirin daily. It was thought this morning the patient may have had blood in his emesis, he did vomit times one. Patient states that he ate chili last night, he denies any blood in his stool or black stool. Echocardiogram with Doppler study which was performed in February 2016 before his bypass surgery showed a normal left ventricular systolic function at that time. Past Medical History Past Medical History: CVA/TIA, Diabetes Mellitus, Hyperlipidemia, Hypertension, Myocardial Infarction (ME), Neurologic Disorder, Pneumonia, Thyroid Disorder Additional Past Medical History / Comment(s): Pt has AMS so PMH obtained from previous medical record and speaking with spouse and pt's sister. Pt recently admitted to [facility] on 02/18/16 and had cardiac cath-was transferred to [facility] for CABG and aortic valve replacement. 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 Last Myocardial Infarction Date:: 02/17/2016 History of Any Multi-Drug Resistant Organisms: None Reported Past Surgical History: Coronary Bypass/CABG, Heart Catheterization, Orthopedic Surgery Additional Past Surgical History / Comment(s): 02/19/16 cardiac cath, 02/24/16 CABG quadrupal with aortic valve replacement, RT HAND INDEX FINGER BONE CHIP REMOVED, RT WRIST(JAMMED) PT STATED THEY CUT THE BONE AND REALIGNED IT. Past Anesthesia/Blood Transfusion Reactions: No Reported Reaction Past Psychological History: No Psychological Hx Reported Smoking Status: Former smoker Past Alcohol Use History: None Reported Past Drug Use History: None Reported - Past Family History Father Family Medical History: Coronary Artery Disease (CAD) Additional Family Medical History / Comment(s): VASCULAR PROBLEMS/valve replacement. Mother Family Medical History: Coronary Artery Disease (CAD) Additional Family Medical History / Comment(s): VASCULAR PROBLEMS HAD PIG VALVE. Medications and Allergies Home Medications Medication Instructions Recorded Confirmed Type Aspirin EC [Ecotrin] 325 mg PO DAILY 02/17/16 07/04/18 History Hydroxyurea [Hydrea] 1,000 mg PO MOTUWETHFR 02/17/16 07/04/18 History Insulin Glargine [Lantus] 35 unit SQ DAILY 02/17/16 07/04/18 History Metoprolol Tartrate [Lopressor] 50 mg PO BID 02/17/16 07/04/18 History amLODIPine BESYLATE [Norvasc] 10 mg PO DAILY 02/17/16 07/04/18 History metFORMIN HCL [Glucophage] 500 mg PO BID 02/17/16 07/04/18 History Clopidogrel [Plavix] 75 mg PO DAILY 03/11/16 07/04/18 History Ferrous Sulfate [Iron (65 MG 325 mg PO DAILY 03/11/16 07/04/18 History Elemental)] Hydroxyurea 500 mg PO SUSA 06/14/18 07/04/18 History Levothyroxine Sodium [Synthroid] 125 mcg PO DAILY 06/14/18 07/04/18 History Atorvastatin [Lipitor] 20 mg PO HS 07/04/18 07/04/18 History Pregabalin [Lyrica] 200 mg PO BID 07/04/18 07/04/18 History Venlafaxine HCl [Effexor XR] 75 mg PO HS 07/04/18 07/04/18 History prednisoLONE ACETATE 1% OPHTH 1 drops RIGHT EYE Q4HR 07/04/18 07/04/18 History [Pred Forte 1%] Allergies Allergy/AdvReac Type Severity Reaction Status Date / Time No Known Allergies Allergy Verified 07/04/18 19:29 Physical Exam Vitals: Vital Signs Temp Pulse Resp BP Pulse Ox 07/05/18 06:30 45 L 18 124/59 98 07/05/18 04:00 48 L 18 134/62 95 07/05/18 03:00 52 L 16 132/61 96 07/05/18 02:15 52 L 16 122/60 95 07/05/18 01:15 58 L 18 129/60 97 07/05/18 00:55 60 16 151/68 98 07/05/18 00:31 70 18 172/72 98 07/04/18 23:03 102 H 18 124/77 97 07/04/18 22:00 112 H 18 159/81 96 07/04/18 21:07 184/67 07/04/18 20:52 87 18 165/75 96 07/04/18 20:12 99.1 F 114 H 18 146/96 96 07/04/18 19:44 105 H 167/85 94 L 07/04/18 18:58 108 H 18 181/86 94 L 07/04/18 18:31 117 H 18 190/88 98 Intake and Output 07/04/18 07/05/18 07/05/18 22:59 06:59 14:59 Other: Weight 86.183 kg PHYSICAL EXAMINATION: GENERAL: Frail 67-year-old gentleman complaining of chest pain this morning which he rates at a 4 HEENT: Head is atraumatic, normocephalic. Pupils equal, round. Sclera anicteric. Conjunctiva are clear. Mucous membranes of the mouth are moist. Neck is supple. There is no elevated jugular venous pressure.] bruit is heard. HEART EXAMINATION: Heart S1 and S2 systolic ejection murmur is heard. CHEST EXAMINATION: Lungs reveal decreased air exchange throughout. ABDOMEN: [ Soft, nontender. Bowel sounds are heard. No organomegaly noted]. EXTREMITIES:[ 1+ peripheral pulses with trace evidence of peripheral edema , bilateral legs are cool. NEUROLOGIC [patient is awake, alert and oriented X2.] . Results 07/05/18 05:55 07/05/18 05:55 Cardiac Enzymes 07/04/18 07/04/18 07/04/18 Range/Units 18:36 18:36 23:45 AST 21 (17-59) U/L CK-MB (CK-2) 1.5 24.6 H* (0.0-2.4) ng/mL Troponin I 0.048 H* 7.180 H* (0.000-0.034) ng/mL 07/05/18 07/05/18 Range/Units 05:55 05:55 AST 96 H (17-59) U/L CK-MB (CK-2) 43.8 H* (0.0-2.4) ng/mL Troponin I 30.400 H* (0.000-0.034) ng/mL Coagulation 07/04/18 07/04/18 07/05/18 Range/Units 18:36 23:45 05:55 PT 9.6 10.2 (9.0-12.0) sec APTT 19.9 L 45.0 H (22.0-30.0) sec CBC 07/04/18 07/05/18 Range/Units 18:36 05:55 WBC 4.6 3.8 (3.8-10.6) k/uL RBC 3.09 L 2.44 L (4.30-5.90) m/uL Hgb 11.4 L 9.3 L D (13.0-17.5) gm/dL Hct 35.4 L 28.3 L (39.0-53.0) % Plt Count 367 318 (150-450) k/uL Comprehensive Metabolic Panel 07/04/18 07/05/18 Range/Units 18:36 05:55 Sodium 137 138 (137-145) mmol/L Potassium 3.3 L 3.7 (3.5-5.1) mmol/L Chloride 99 108 H (98-107) mmol/L Carbon Dioxide 27 24 (22-30) mmol/L BUN 36 H 34 H (9-20) mg/dL Creatinine 2.49 H 2.30 H (0.66-1.25) mg/dL Glucose 171 H 114 H (74-99) mg/dL Calcium 14.4 H* 13.5 H* (8.4-10.2) mg/dL AST 21 96 H (17-59) U/L ALT 24 33 (21-72) U/L Alkaline Phosphatase 130 H 88 (38-126) U/L Total Protein 6.6 5.4 L (6.3-8.2) g/dL Albumin 3.8 2.9 L (3.5-5.0) g/dL Current Medications Generic Name Dose Route Start Last Admin Trade Name Freq PRN Reason Stop Dose Admin Acetaminophen 650 mg 07/04/18 20:21 Tylenol Tab PO Q6HR PRN Mild Pain or Fever > 100.5 Hydrocodone Bitart/Acetaminophen 1 each 07/04/18 22:31 [place] 5-325 PO Q6HR PRN Pain Alprazolam 0.25 mg 07/04/18 22:31 Xanax PO TID PRN Anxiety Amlodipine Besylate 10 mg 07/05/18 09:00 Norvasc PO DAILY [facility] Aspirin 325 mg 07/05/18 09:00 Aspirin PO DAILY [facility] Atorvastatin Calcium 20 mg 07/04/18 21:00 Lipitor PO HS [facility] Clopidogrel Bisulfate 75 mg 07/05/18 09:00 Plavix PO DAILY [facility] Ferrous Sulfate 325 mg 07/05/18 09:00 Feosol PO DAILY [facility] Heparin Sodium (Porcine) 0 unit 07/04/18 19:19 Heparin IV PER PROTOCOL PRN Low PTT Protocol Sodium Chloride 1,000 mls @ 75 mls/hr 07/04/18 19:30 07/04/18 19:59 Saline 0.9% IV 75 mls/hr .[id number] [facility] Administration Heparin Sodium/Sodium Chloride 500 mls @ 19.99 mls/hr 07/04/18 19:30 20:06 25,000 unit/ Sodium Chloride IV 11.6 units/kg/hr .Q24H [facility] 19.99 mls/hr Administration Protocol 11.6 UNITS/KG/HR Nitroglycerin/Dextrose 50 mg/ 250 mls @ 1.5 mls/hr 07/04/18 20:28 07/04/18 20 :46 IV Solution IV 07/05/18 20:27 5 mcg/min .Q24H ONE 1.5 mls/hr Administration Protocol 5 MCG/MIN Insulin Aspart 0 unit 07/05/18 07:30 Novolog SQ ACHS [facility] Protocol Insulin Detemir 35 unit 07/05/18 09:00 Levemir SQ DAILY [facility] Levothyroxine Sodium 125 mcg 07/05/18 06:30 Synthroid PO DAILY@0630 [facility] Metoprolol Tartrate 50 mg 07/05/18 09:00 Lopressor PO BID [facility] Morphine Sulfate 4 mg 07/04/18 20:21 Morphine Sulfate (Inj) IV Q4HR PRN Severe Pain Naloxone HCl 0.2 mg 07/04/18 20:21 Narcan IV Q2M PRN Opioid Reversal Pantoprazole Sodium 40 mg 07/05/18 07:30 Protonix PO AC-BRKFST [facility] Prednisolone Acetate 1 drops 07/05/18 00:00 Pred Forte 1% RIGHT EYE Q4HR [facility] Pregabalin 200 mg 07/04/18 23:00 Lyrica PO BID [facility] Venlafaxine HCl 75 mg 07/04/18 23:00 Effexor Xr PO [facility] Intake and Output 07/04/18 07/05/18 07/05/18 22:59 06:59 14:59 Other: Weight 86.183 kg 07/05/18 05:55 07/05/18 05:55 EKG Interpretations (text) EKG on presentation here showed atrial fibrillation with a moderately rapid ventricular response and ST depression noted in the anterior lateral leads. EKG this morning shows a sinus bradycardia. Assessment and Plan Plan: Assessment and plan #1 non-ST elevation myocardial infarction, patient is currently on heparin, we did give the patient an aspirin, we will also increase his Lipitor to 80 mg daily. #2 known history of coronary artery disease with quadruple bypass performed in 2016 at [facility] #3 status post TAVR performed in February 2016 #4 hypertension #5 hyperlipidemia #6 diabetes #7 hypothyroidism #8 anemia, patient has history of iron deficiency anemia #9 acute renal insufficiency, creatinine 2.3, creatinine on the first of this month was documented to be 1.2 #10 history of CVA Plan We will obtain a stat echocardiogram with Doppler study. Patient did receive 500 mL bolus of normal saline and is currently on 75 mL per hour. He is also on a nitro drip and heparin drip. He continues to have chest discomfort at the time of my examination. Patient will need to undergo cardiac catheterization, the risks and the benefits were again explained to him in detail, we're waiting for his to arrive it appears he has mild dementia. Further recommendations to follow. DNP note has been reviewed, I agree with a documented findings and plan of care. Patient was seen and examined.
[2018-07-05] MEDS: LEVOTHYROXINE 125 MCG TAB PO SCH (08:42)
[2018-07-05] MEDS: PREGABALIN 100 MG CAP PO SCH ×3 (08:42→19:58)
[2018-07-05] MEDS: VENLAFAXINE HCL ER 75 MG CAP PO SCH ×2 (08:42→19:59)
[2018-07-05] MEDS: prednisoLONE ACETATE 1% OPHTH DROPS 5 ML BTL RIGHT EYE SCH ×8 (08:42→23:26)
[2018-07-05] MEDS: INSULIN ASPART 100 UNIT/ML 1 ML 10 ML VIAL SQ SCH ×4 (08:43→21:38)
[2018-07-05] MEDS ORDERED: ATORVASTATIN 80 MG TAB PO STA (08:45)
[2018-07-05] MEDS: METOPROLOL TARTRATE 50 MG TAB PO SCH ×2 (08:46→19:59)
[2018-07-05] MEDS: SODIUM CHLORIDE 0.9% 1,000 ML IV SCH ×3 (08:50→23:26)
[2018-07-05] MEDS: FERROUS SULFATE 325 MG TAB PO SCH (08:51)
[2018-07-05] MEDS: ASPIRIN 325 MG TAB PO SCH (08:51)
[2018-07-05] MEDS: CLOPIDOGREL 75 MG TAB PO SCH (08:52)
[2018-07-05] MEDS: PANTOPRAZOLE 40 MG TABLET PO SCH (08:52)
[2018-07-05] MEDS: amLODIPine 10 MG TAB PO SCH (08:52)
[2018-07-05] MEDS: METOPROLOL TARTRATE 5 MG/5 ML VIAL IVP SCH ×3 (09:19→09:21)
--- NOTE | 2018-07-05 11:30 | ECHOF ---
Referral Reason: MEASUREMENTS -------- HEIGHT: 175.3 cm WEIGHT: 86.2 kg BP: IVSd: 0.9 cm (0.6 - 1.1) LVIDd: 4.4 cm (3.9 - 5.3) LVPWd: 1.2 cm (0.6 - 1.1) IVSs: 1.8 cm LVIDs: 2.8 cm LVPWs: 1.8 cm LAESV Index (A-L): 27.88 ml/m Ao Diam: 2.9 cm (2.0 - 3.7) AV Cusp: 1.7 cm (1.5 - 2.6) LA Diam: 3.2 cm (2.7 - 3.8) MV EXCURSION: 15.618 mm (> 18.000) MV EF SLOPE: 84 mm/s (70 - 150) EPSS: 1.0 cm MV E Pawan: 1.12 m/s MV DecT: 287 ms MV A Pawan: 0.58 m/s MV E/A Ratio: 1.92 AV maxP.45 mmHg AV meanP.15 mmHg RAP: 5.00 mmHg RVSP: 30.27 mmHg FINDINGS -------- Sinus rhythm with extra systolic beats. This was a technically adequate study. The left ventricular size is normal. Left ventricular wall thickness is normal. Overall left vent ricular systolic function is normal with, an EF between 55 - 60 %. The right ventricle is normal in size and function. The left atrial size is normal. The right atrium is normal in size. Peak/mean gradient across the Aortic Valve is 19.45mmHg / 11.15mmHg. TAVR procedure done The mitral valve leaflets are mildly thickened. Mild mitral annular calcification present. Mild-t o-moderate mitral regurgitation is present. Mild tricuspid regurgitation present. There is no evidence of pulmonary hypertension. The right v entricular systolic pressure, as measured by Doppler, is 30.27mmHg. The pulmonic valve was not well visualized. The aortic root size is normal. Normal inferior vena cava with normal inspiratory collapse consistent with estimated right atrial pre ssure of 5 mmHg. There is a trivial pericardial effusion present. CONCLUSIONS -------- 1. Sinus rhythm with extra systolic beats. 2. This was a technically adequate study. 3. The left ventricular size is normal. 4. Left ventricular wall thickness is normal. 5. Overall left ventricular systolic function is normal with, an EF between 55 - 60 %. 6. The left atrial size is normal. 7. Peak/mean gradient across the Aortic Valve is 19.45mmHg / 11.15mmHg. 8. TAVR procedure done 9. The mitral valve leaflets are mildly thickened. 10. Mild mitral annular calcification present. 11. [id number] mitral regurgitation is present. 12. Mild tricuspid regurgitation present. 13. There is no evidence of pulmonary hypertension. 14. The pulmonic valve was not well visualized. 15. The aortic root size is normal. 16. Normal inferior vena cava with normal inspiratory collapse consistent with estimated right atrial pressure of 5 mmHg. 17. There is a trivial pericardial effusion present. BALER OPERATOR: Laureen Murry RDCS
[2018-07-05] MEDS: INSULIN DETEMIR 100 UNIT/ML 10 ML VIAL SQ SCH (11:42)
--- NOTE | 2018-07-05 13:12 | P.NPCON ---
History of Present Illness - Reason for Consult Consult date: 07/05/18 acute renal failure - Chief Complaint Acute kidney injury with hypercalcemia - History of Present Illness This is a 67-year-old male seen in consultation because of hypercalcemia and acute kidney injury. He came in with a calcium of 14.4 and creatinine of 2.49. Baseline creatinine is 1.2 with a GFR of 62 and permanent. He came in with chest pain and is currently pain free on nitroglycerin drip, his troponin went up to 30 and he has an acute ID. Patient admits taking multiple Tums more than 10 perhaps per day and additionally says he was on some kind of a vitamin D tablet 3 times a week. He is taking the Tums because of GERD symptoms. Denies any constipation nausea vomiting. He did have some paresthesias in his legs. He has had a stroke about 2 years ago on the left side with residual weakness and difficulty walking. Baseline is able to walk with a walker but the last one week he has unable to do so. Patient is known with heart disease had a coronary artery bypass graft about 2- 3 years ago at [facility] and an aortic valve replacement. He is diabetic for the last 5-7 years but no history of laser treatment. Past Medical History Past Medical History: CVA/TIA, Diabetes Mellitus, Hyperlipidemia, Hypertension, Myocardial Infarction (ID), Neurologic Disorder, Pneumonia, Seizure Disorder, Thyroid Disorder Additional Past Medical History / Comment(s): Pt admitted 07/04/18 with NSTEMI, afib RVR. Other Hx: STROKE AFFECTED LT SIDE arm and leg, LT FOOT DRAG USES A BRACE, IDDM type II, hyponatremia with metabolic encephalopathy, 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 [employer] [id number], HAD SOME SKIN DISEASE WHERE HIS HANDS AND FEET WOULD BLISTER/PEEL HAD BX DONE-never found cause, hypothyroid, chronic iron anemia, PVD L leg. Last Myocardial Infarction Date:: 02/17/2016 History of Any Multi-Drug Resistant Organisms: None Reported Past Surgical History: Coronary Bypass/CABG, Heart Catheterization, Orthopedic Surgery Additional Past Surgical History / Comment(s): 02/19/16 cardiac cath, 02/24/16 CABG quadrupal with aortic valve replacement (TAVR), RT HAND INDEX FINGER BONE CHIP REMOVED, RT WRIST(JAMMED) PT STATED THEY CUT THE BONE AND REALIGNED IT, colonoscopy, bilateral cataract removals/lens implants. Past Anesthesia/Blood Transfusion Reactions: No Reported Reaction Smoking Status: Former smoker - Past Family History Father Family Medical History: Coronary Artery Disease (CAD) Additional Family Medical History / Comment(s): VASCULAR PROBLEMS/valve replacement. Mother Family Medical History: Coronary Artery Disease (CAD) Additional Family Medical History / Comment(s): VASCULAR PROBLEMS HAD PIG VALVE. Medications and Allergies Home Medications Medication Instructions Recorded Confirmed Type Aspirin EC [Ecotrin] 325 mg PO DAILY 02/17/16 07/04/18 History Hydroxyurea [Hydrea] 1,000 mg PO MOTUWETHFR 02/17/16 07/04/18 History Insulin Glargine [Lantus] 35 unit SQ DAILY 02/17/16 07/04/18 History Metoprolol Tartrate [Lopressor] 50 mg PO BID 02/17/16 07/04/18 History amLODIPine BESYLATE [Norvasc] 10 mg PO DAILY 02/17/16 07/04/18 History metFORMIN HCL [Glucophage] 500 mg PO BID 02/17/16 07/04/18 History Clopidogrel [Plavix] 75 mg PO DAILY 03/11/16 07/04/18 History Ferrous Sulfate [Iron (65 MG 325 mg PO DAILY 03/11/16 07/04/18 History Elemental)] Hydroxyurea 500 mg PO SUSA 06/14/18 07/04/18 History Levothyroxine Sodium [Synthroid] 125 mcg PO DAILY 06/14/18 07/04/18 History Atorvastatin [Lipitor] 20 mg PO HS 07/04/18 07/04/18 History Pregabalin [Lyrica] 200 mg PO BID 07/04/18 07/04/18 History Venlafaxine HCl [Effexor XR] 75 mg PO HS 07/04/18 07/04/18 History prednisoLONE ACETATE 1% OPHTH 1 drops RIGHT EYE Q4HR 07/04/18 07/04/18 History [Pred Forte 1%] Allergies Allergy/AdvReac Type Severity Reaction Status Date / Time No Known Allergies Allergy Verified 07/04/18 19:29 Physical Exam Vitals: Vital Signs Temp Pulse Pulse Resp BP BP Pulse Ox 07/05/18 08:00 98.4 F 49 L 20 165/71 93 L 07/05/18 06:30 45 L 18 124/59 98 07/05/18 04:00 48 L 18 134/62 95 07/05/18 03:00 52 L 16 132/61 96 07/05/18 02:15 52 L 16 122/60 95 07/05/18 01:15 58 L 18 129/60 97 07/05/18 00:55 60 16 151/68 98 07/05/18 00:31 70 18 172/72 98 07/04/18 23:03 102 H 18 124/77 97 07/04/18 22:00 112 H 18 159/81 96 07/04/18 21:07 184/67 07/04/18 20:52 87 18 165/75 96 07/04/18 20:12 99.1 F 114 H 18 146/96 96 07/04/18 19:44 105 H 167/85 94 L 07/04/18 18:58 108 H 18 181/86 94 L 07/04/18 18:31 117 H 18 190/88 98 Intake and Output 07/04/18 07/05/18 07/05/18 22:59 06:59 14:59 Intake Total 265.534 Output Total 200 Balance 65.534 Intake: Intake, IV Titration 265.534 Amount Heparin Sod,Pork in 0.45% 265.534 NaCl 25,000 unit In 0.45 % NaCl 1 500ml.bag @ 11.6 UNITS/KG/HR 19.99 mls/hr IV .Q24H COUNTS INCLUDE 234 BEDS AT THE [facility] Rx#: [id number] Output: Urine 200 Other: Weight 86.183 kg On exam concurrently is awake alert oriented comfortable on nasal cannula. HEENT exam no JVP neck is supple no facial asymmetry no notes in the groin and axilla. Lungs are to auscultation good air entry bilaterally Heart sounds are unremarkable no murmur rub gallop Abdomen soft nontender no organomegaly ascites masses Extremity exam was no edema Warm to touch. Neurologically awake alert oriented. Left-sided weakness but able to move his left side but 3 out of 5 power. Results - Lab Results Most recent lab results Calcium 13.5 mg/dL (8.4-10.2) H* 07/05/18 05:55 Phosphorus 3.5 mg/dL (2.5-4.5) 07/05/18 05:55 Magnesium 1.9 mg/dL (1.6-2.3) 07/05/18 05:55 07/05/18 05:55 07/05/18 05:55 Assessment and Plan Assessment: Impression 1. Acute kidney injury secondary to hypercalcemia. 2. Hypertension secondary to excessive Tums intake, further states he is on some kind of a vitamin D pill 3 times a week although his not listed on his med list. 3. Admitted with chest pain acute ID troponins 30. Pain-free on nitroglycerin drip. 4. History of coronary artery bypass graft with aortic valve replacement on 10/2016 at [facility]. 5. Left-sided CVA with residual weakness and Recommendation. 1. IV normal saline at 100 mL an hour. Will use Lasix 20 mg every12 hour. The use of Lasixs is to address the risk of CHF in a patient with acute ID. 2. Monitor calcium in the next few hours. 3. Monitor I's and O's strictly. 4. As he may need cardiac cath in the use small doses of Zometa or Aredia to get his calcium down and his renal function improved 5. Keep blood pressure around 110 to 1:30 6. Avoid any nephrotoxic medications. 7. Discussed with patient access specialist regarding the urgency if any for cardiac catheterization and I'm told that the plan is to hold it off for right now unless his symptoms emergency. His renal function may improve in the next 2 or 3 days
[2018-07-05 13:19] LABS: Creatine Kinase MB 37.7 ng/mL (0.0-2.4); Troponin I 23.2 ng/mL (0.000-0.034)
[2018-07-05] MEDS ORDERED: ZOLEDRONIC ACID 2 MG in SODIUM CHLORIDE 0.9% 100 ML IV ONE (13:45)
[2018-07-05] MEDS: FUROSEMIDE 10 MG/ML 2 ML VIAL IV SCH ×2 (14:33→19:58)
[2018-07-05 14:45] LABS: Hemoglobin A1C 6.2 % (4.0-6.0)
[2018-07-05 16:39] LABS: Calcium 12.1 mg/dL (8.4-10.2)
[2018-07-05 16:43] LABS: Potassium 4.8 mmol/L (3.5-5.1)
[2018-07-05 16:44] LABS: Glucose,Whole Blood 115 mg/dL (75-99)
[2018-07-05 17:04] LABS: Glucose,Whole Blood 115 mg/dL (75-99)
[2018-07-05] MEDS: HEPARIN SODIUM,PORCINE 5,000 UNIT/ML 1 ML VIAL IV PRN (17:14)
--- NOTE | 2018-07-05 17:15 | PN ---
PROGRESS NOTE DATE OF SERVICE: 07/05/2018 This 67-year-old gentleman admitted with chest pain and palpitation, had troponin elevated to 0.0448. The patient also had multiple other medical issues including hypercalcemia as well. The patient also had a 2D echo with Doppler which showed ejection fraction 55-60 percent. Multiple mild valvular abnormalities also noted. TAVR was also noted. Cardiology is following the patient closely and recommending increased Lipitor and aspirin. The patient is on nitro and heparin drip also. The patient still having some chest pain at this time. Nephrology has seen the patient and recommended IV saline and Lasix also because of hypercalcemia. The parathyroid hormone also being requested, exact etiology of the hypercalcemia is unknown at this time. The troponins are gone up to 30 and 23 indicating acute myocardial infarction. PAST MEDICAL HISTORY: Reviewed. REVIEW OF SYSTEMS: Cardiovascular system: As mentioned earlier. RESPIRATORY: As mentioned earlier. GI: No nausea or vomiting. no dysuria. Central nervous system: No numbness or weakness. CURRENT MEDICATIONS ARE: Reviewed and include: 1. Tylenol 650 q.6h p.r.n. 2. Scalf 5 mg. 3. Xanax 0.25 mg. 4. Norvasc 10 mg. 5. Aspirin 320 mg. 6. Lipitor 80 mg daily. 7. Plavix 75 mg daily. 8. Iron sulfate 320 mg. 9. Lasix 20 mg b.i.d. 10.Heparin. 11.NovoLog insulin. 12.Levemir 35 units subcu q.h.s. 13.Synthroid 125 mcg. 14.Lopressor. 15.Narcan. 16.Nitro. 18.Lyrica. 19.Effexor XR. PHYSICAL EXAM: Patient is alert, oriented x3. Pulse of 44, blood pressure 150/60, respiratory 20, temperature is 97.8, pulse ox 98 percent on 2 L. HEENT: Conjunctivae normal. Oral mucosa moist. Neck is no jugular venous distention. No carotid bruit. No lymph node enlargement. Cardiovascular systems: S1, S2. Respirations: Breath sounds diminished in the bases. Bilateral scattered rhonchi and crackles. ABDOMEN: Soft, nontender. Legs are no edema. No swelling. Nervous system: Diffusely weak. LAB INVESTIGATIONS: At this time shows WBC 3.2, hemoglobin 9.3, and creatinine is 2.3. ASSESSMENT: 1. Acute non ST-segment elevation myocardial infarction with troponin 30.4. 2. Atrial fibrillation with fast ventricular rate. 3. Hypercalcemia. 4. Acute renal failure possibly prerenal acute tubular necrosis secondary to hypercalcemia. 5. Hypokalemia. 6. Hypomagnesemia. 7. Anemia. 8. Increased MCV. 9. Diabetes mellitus type 2. 10.History of cerebrovascular accident/transient ischemic attack. 11.Hypertension. 12.History of myocardial infarction. 13.History of pneumonia. 14.History of hypothyroidism. 15.History of coronary artery disease, coronary artery bypass grafting. 16.History of stroke and left-sided weakness. 17.History of aortic valve replacement. 18.History of nicotine dependence. RECOMMENDATIONS AND DISCUSSION: Recommend to continue current medications, management and symptomatic treatment. Otherwise, at this time, I recommend to follow up closely with Cardiology. Continue the IV heparin drip and monitor closely. Continue the nitrates. Otherwise, for the calcium, continue IV fluids cautiously, with Lasix according to Nephrology recommendation. Recommend parathyroid hormone evaluation. The kidney injury could be due to combination factors including prerenal factors as well as hypercalcemia. Otherwise, continue the rest of medications. Overall prognosis extremely guarded because of multiple complex medical issues. Further recommendations to follow. MMODL / IJN: [id number] / CRISTEL
[2018-07-05] MEDS ORDERED: MORPHINE ORAL SOLN 10 MG/5 ML CUP PO PRN (19:24)
[2018-07-05 20:47] LABS: Glucose,Whole Blood 239 mg/dL (75-99)
[2018-07-05] MEDS ORDERED: ATORVASTATIN 80 MG TAB PO SCH (21:00)
[2018-07-05] MEDS: HEPARIN SOD,PORK IN 0.45% NACL 25,000 UNIT in 0.45% NACL 1 500ML.BAG IV SCH (21:37)
[2018-07-05] MEDS: NITROGLYCERIN-D5W PMX 50 MG in DEXTROSE/WATER 1 250ML.BAG IV SCH (21:38)
[2018-07-06] MEDS: prednisoLONE ACETATE 1% OPHTH DROPS 5 ML BTL RIGHT EYE SCH ×4 (04:19→17:06)
[2018-07-06 05:55] LABS: Glucose,Whole Blood 159 mg/dL (75-99)
[2018-07-06] MEDS: LEVOTHYROXINE 125 MCG TAB PO SCH (06:26)
[2018-07-06] MEDS: PANTOPRAZOLE 40 MG TABLET PO SCH (06:26)
[2018-07-06] MEDS: INSULIN ASPART 100 UNIT/ML 1 ML 10 ML VIAL SQ SCH ×4 (06:27→21:40)
[2018-07-06 06:56] LABS: INR 1.1 (<1.2); Partial Thromboplastin Time 67.1 sec (22.0-30.0); Prothrombin Time 10.5 sec (9.0-12.0)
[2018-07-06 07:01] LABS: Basophils % (A) 0 %; Eosinophils # (A) 0.1 k/uL (0-0.7); Eosinophils % (A) 3 %; HCT 24.7 % (39.0-53.0); Lymphocytes # (A) 0.7 k/uL (1.0-4.8); Lymphocytes % (A) 13 %; MCH 38.3 pg (25.0-35.0); MCHC 32.4 g/dL (31.0-37.0); MCV 118.1 fL (80.0-100.0); Macrocytosis Marked; Monocytes # (A) 0.2 k/uL (0-1.0); Monocytes % (A) 4 %; Neutrophils # (A) 3.9 k/uL (1.3-7.7); Neutrophils % (A) 79 %; Platelet Count 279 k/uL (150-450); RBC 2.09 m/uL (4.30-5.90); RDW 14.5 % (11.5-15.5)
[2018-07-06 08:00] LABS: Calcium 11.3 mg/dL (8.4-10.2); Potassium 3.7 mmol/L (3.5-5.1)
[2018-07-06] MEDS: FERROUS SULFATE 325 MG TAB PO SCH (08:30)
[2018-07-06] MEDS: amLODIPine 10 MG TAB PO SCH (08:39)
[2018-07-06] MEDS: ASPIRIN 325 MG TAB PO SCH (08:39)
[2018-07-06] MEDS: CLOPIDOGREL 75 MG TAB PO SCH (08:39)
[2018-07-06] MEDS: INSULIN DETEMIR 100 UNIT/ML 10 ML VIAL SQ SCH (08:41)
[2018-07-06] MEDS: METOPROLOL TARTRATE 50 MG TAB PO SCH ×2 (08:46→21:35)
--- NOTE | 2018-07-06 10:30 | P.PN ---
Subjective Progress Note Date: 07/06/18 Principal diagnosis: This is a 67-year-old male seen in consultation because of hypercalcemia and acute kidney injury, hypercalcemia is from large amounts of Tums he was taking as well as some Phenaphen vitamin D preparation.. He came in with a calcium of 14.4 and creatinine of 2.49. Baseline creatinine is 1.2 with a GFR of 62 and permanent. He came in with chest pain and is currently pain free on nitroglycerin drip, his troponin went up to 30 and he has an acute [place]. This morning he seems somewhat confused, denied any chest pain shortness of breath dizziness fever chills sweating nausea vomiting diarrhea abdominal pain. His calcium is responded to the 2 mg of Zometa and IV fluids with Lasix. Urine output is not well documented. He looks somewhat short of breath and is on nasal cannula oxygen. Objective - Vital Signs Vital signs: Vital Signs Temp 97.8 F 07/06/18 06:26 Pulse 50 L 07/06/18 04:00 Resp 18 07/06/18 04:00 BP 121/54 07/06/18 04:00 Pulse Ox 94 L 07/06/18 04:00 Intake & Output 07/05/18 07/06/18 07/06/18 18:59 06:59 18:59 Intake Total 650.795 668.478 141.867 Output Total 200 200 Balance 450.795 468.478 141.867 Weight 79.5 kg Intake: Intake, IV Titration 410.795 668.478 141.867 Amount Heparin Sod,Pork in 0.45% 410.795 168.478 141.867 NaCl 25,000 unit In 0.45 % NaCl 1 500ml.bag @ 11.6 UNITS/KG/HR 19.99 mls/hr IV .Q24H [facility] Rx#: [id number] Sodium Chloride 0.9% 1, 500 000 ml @ 100 mls/hr IV . Q10H [facility] Rx#:[id number] Oral 240 Output: Urine 200 200 Other: Voiding Method Urinal Urinal # Voids 1 Awake alert and seems to be somewhat confused. He follows commands. HEENT exam no JVP neck is supple no facial asymmetry was are equal. Heart sounds are unremarkable for any murmur rub gallop Lungs are clear to auscultation and fair air entry. No crackles were heard Abdomen soft nontender no masses felt Extremity exam was no edema Neurologically awake alert but unsure of his orientation. Mild tremors noted. He has weakness on his left side from previous CVA - Labs CBC & Chem 7: 07/06/18 06:14 07/06/18 06:14 Labs: Abnormal Lab Results - Last 24 Hours (Table) 07/04/18 07/05/18 07/05/18 Range/Units 18:36 05:55 11:51 RBC (4.30-5.90) m/uL Hgb (13.0-17.5) gm/dL Hct (39.0-53.0) % MCV (80.0-100.0) fL MCH (25.0-35.0) pg Lymphocytes # (1.0-4.8) k/uL APTT (22.0-30.0) sec Sodium (137-145) mmol/L Chloride (98-107) mmol/L Carbon Dioxide (22-30) mmol/L BUN (9-20) mg/dL Creatinine (0.66-1.25) mg/dL Glucose (74-99) mg/dL POC Glucose (mg/dL) (75-99) mg/dL Hemoglobin A1c 6.2 H (4.0-6.0) % Calcium (8.4-10.2) mg/dL Total Creatine Kinase 414 H (55-170) U/L CK-MB (CK-2) 37.7 H* (0.0-2.4) ng/mL Troponin I 23.200 H* (0.000-0.034) ng/mL PTH Intact 4.7 L (14.0-72.0) pg/mL 07/05/18 07/05/18 07/05/18 Range/Units 14:03 16:15 16:59 RBC (4.30-5.90) m/uL Hgb (13.0-17.5) gm/dL Hct (39.0-53.0) % MCV (80.0-100.0) fL MCH (25.0-35.0) pg Lymphocytes # (1.0-4.8) k/uL APTT (22.0-30.0) sec Sodium 136 L (137-145) mmol/L Chloride 110 H (98-107) mmol/L Carbon Dioxide (22-30) mmol/L BUN 32 H (9-20) mg/dL Creatinine 2.09 H (0.66-1.25) mg/dL Glucose (74-99) mg/dL POC Glucose (mg/dL) 115 H 115 H (75-99) mg/dL Hemoglobin A1c (4.0-6.0) % Calcium 12.1 H (8.4-10.2) mg/dL Total Creatine Kinase (55-170) U/L CK-MB (CK-2) (0.0-2.4) ng/mL Troponin I (0.000-0.034) ng/mL PTH Intact (14.0-72.0) pg/mL 07/05/18 07/05/18 07/06/18 Range/Units 20:45 23:33 05:52 RBC (4.30-5.90) m/uL Hgb (13.0-17.5) gm/dL Hct (39.0-53.0) % MCV (80.0-100.0) fL MCH (25.0-35.0) pg Lymphocytes # (1.0-4.8) k/uL APTT 93.9 H (22.0-30.0) sec Sodium (137-145) mmol/L Chloride (98-107) mmol/L Carbon Dioxide (22-30) mmol/L BUN (9-20) mg/dL Creatinine (0.66-1.25) mg/dL Glucose (74-99) mg/dL POC Glucose (mg/dL) 239 H 159 H (75-99) mg/dL Hemoglobin A1c (4.0-6.0) % Calcium (8.4-10.2) mg/dL Total Creatine Kinase (55-170) U/L CK-MB (CK-2) (0.0-2.4) ng/mL Troponin I (0.000-0.034) ng/mL PTH Intact (14.0-72.0) pg/mL 07/06/18 07/06/18 07/06/18 Range/Units 06:14 06:14 06:14 RBC 2.09 L (4.30-5.90) m/uL Hgb 8.0 L (13.0-17.5) gm/dL Hct 24.7 L (39.0-53.0) % MCV 118.1 H (80.0-100.0) fL MCH 38.3 H (25.0-35.0) pg Lymphocytes # 0.7 L (1.0-4.8) k/uL APTT 67.1 H (22.0-30.0) sec Sodium (137-145) mmol/L Chloride 113 H (98-107) mmol/L Carbon Dioxide 20 L (22-30) mmol/L BUN 34 H (9-20) mg/dL Creatinine 2.41 H (0.66-1.25) mg/dL Glucose 126 H (74-99) mg/dL POC Glucose (mg/dL) (75-99) mg/dL Hemoglobin A1c (4.0-6.0) % Calcium 11.3 H (8.4-10.2) mg/dL Total Creatine Kinase (55-170) U/L CK-MB (CK-2) (0.0-2.4) ng/mL Troponin I (0.000-0.034) ng/mL PTH Intact (14.0-72.0) pg/mL Assessment and Plan Assessment: Impression 1. Acute kidney injury secondary to hypercalcemia. Creatinine is fluctuating, remains elevated at 2.41. He came in with a creatinine of 2.49. In the interim it had gone down improved to 2.09 yesterday evening and is up again to 2.41. 2. Hypercalcemia secondary to excessive Tums intake, as well as some kind of a vitamin D pill 3 times a week although his not listed on his med list. 3. Admitted with chest pain acute [place] troponins 30. Pain-free on nitroglycerin drip. Troponin down to 23 units morning 4. History of coronary artery bypass graft with aortic valve replacement on 10/2016 at [facility]. 5. Left-sided CVA with residual weakness 6. Anemia, hemoglobin went down from 11.4-8 in the hospital for the last 2 days , no obvious GI bleed. Some of it is from hydration and dilution Recommendation. 1. Continue IV normal saline at 100 mL an hour. and cont Lasix 20 mg every12 hour. The use of Lasixs is to address the risk of CHF in a patient with acute [place]. 2. Monitor calcium and renal function 3. Monitor I's and O's strictly. 4. Obtain bladder scan. 5. Keep blood pressure around 110 to 1:30 6. Avoid any nephrotoxic medications. 7. Obtain chest x-ray this morning
[2018-07-06 11:39] LABS: Glucose,Whole Blood 117 mg/dL (75-99)
[2018-07-06] MEDS: PREGABALIN 100 MG CAP PO SCH ×2 (11:54→21:36)
[2018-07-06] MEDS: FUROSEMIDE 10 MG/ML 2 ML VIAL IV SCH ×2 (11:54→21:35)
--- NOTE | 2018-07-06 12:26 | XR ---
EXAMINATION TYPE: XR chest 1V DATE OF EXAM: 07/06/2018 COMPARISON: 03/11/2016 HISTORY: Shortness of breath FINDINGS: There are bilateral pleural effusions with cardiomegaly and bibasilar infiltrate. There is a diffuse interstitial pattern. Postsurgical changes. Arthropathy of the shoulders. Chronic rib deformity seen . IMPRESSION: 1. Diffuse pleural-parenchymal changes suggestive of CHF. Findings progressed from the previous exam.
[2018-07-06 12:44] LABS: Basophils % (A) 0 %; Eosinophils # (A) 0.1 k/uL (0-0.7); Eosinophils % (A) 2 %; HCT 26.1 % (39.0-53.0); HGB 8.5 gm/dL (13.0-17.5); Lymphocytes # (A) 0.5 k/uL (1.0-4.8); Lymphocytes % (A) 12 %; MCH 37.1 pg (25.0-35.0); MCHC 32.4 g/dL (31.0-37.0); MCV 114.6 fL (80.0-100.0); Macrocytosis Marked; Mean Platelet Volume 6.9; Monocytes # (A) 0.2 k/uL (0-1.0); Monocytes % (A) 5 %; Neutrophils # (A) 3.6 k/uL (1.3-7.7); Neutrophils % (A) 81 %; Platelet Count 317 k/uL (150-450); RBC 2.28 m/uL (4.30-5.90); RDW 14.4 % (11.5-15.5); WBC 4.5 k/uL (3.8-10.6)
[2018-07-06] MEDS ORDERED: FUROSEMIDE 10 MG/ML 4 ML VIAL IV STA (12:51)
[2018-07-06 13:15] LABS: Poikilocytosis (M) Present; Polychromasia Present
[2018-07-06 13:16] LABS: Large Platelets Present
--- NOTE | 2018-07-06 15:10 | P.PN ---
Subjective Progress Note Date: 07/06/18 This is a 67-year-old gentleman with known history of coronary artery disease, in 2016 patient went to [facility] from here and underwent quadruple bypass by Dr. Moeller with a SANTOS to the LAD, saphenous vein graft to the obtuse marginal 1, saphenous vein graft to the obtuse marginal 2, saphenous vein graft to the distal RCA. Patient also underwent aortic TAVR. Patient does have history of prior CVA, diabetes, hypertension, chronic anemia, hyperlipidemia, history of nicotine dependence. He presents to the hospital on this occasion with a 2-3 duration of chest discomfort. Patient states 2 days ago he was having intermittent chest pain off and on, yesterday he states the pain was quite constant. He presented to the emergency room for further evaluation. Blood pressure on arrival 190/88, heart rate 120, 98% on 2 L of oxygen. Patient was noted to have a low-grade temperature of 99.1. Blood pressure this morning 124/60, heart rate in the 50s. EKG on arrival here showed atrial fibrillation with a moderately rapid ventricular response, nonspecific ST-T wave changes noted subsequent EKG continued to show atrial fibrillation with a rapid ventricular response, ST depression is noted in the anterior lateral leads. This morning's EKG, patient has converted to a normal sinus rhythm, he is actually bradycardic with heart rate in the 40s to 50s. S2 x-ray did not reveal any definite process. White blood cell count 3.8, hemoglobin on arrival 11.4, 9.3 this morning. Sodium 138, potassium 3.7, BUN 36 and creatinine 2.4 on admission, 34 and 2.3 this morning. Calcium level on admission 14, 13 this morning. Magnesium 1.5 on admission, 1.9 this morning. BNP [id number]. Troponins 0.048, 7.1, 30.4. At the time of my examination this morning, patient continues to complain of chest pressure at about a 4. 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 He does state that he has been taking his home medications. His home medications included Lyrica, iron supplementation, Effexor, Synthroid, Glucophage, Lantus, hydroxyurea, Lipitor 20, Norvasc 10, Lopressor 50 twice a day, Plavix 75 mg daily and a full aspirin daily. It was thought this morning the patient may have had blood in his emesis, he did vomit times one. Patient states that he ate chili last night, he denies any blood in his stool or black stool. Echocardiogram with Doppler study which was performed in February 2016 before his bypass surgery showed a normal left ventricular systolic function at that time. 07/06/2018 Patient was seen and examined this morning, he is more lethargic than yesterday. Blood pressure 160/70 with a heart rate in the 50s, 93% on 8 L high flow. Hemoglobin 8 today, platelet count 317, white blood cell count normal. Sodium 138, potassium 3.7, BUN 34, creatinine 2.4. Echocardiogram with Doppler study revealed a normal left ventricular systolic function. Repeat chest x-ray was performed today which revealed diffuse pleural parenchymal changes suggestive of CHF, findings progressed from previous exam. Patient is on IV Lasix twice a day, is also getting IV fluids at 100 mL per hour per nephrology. Patient's request on this admission and prior admissions if that he be a no code. Objective - Vital Signs Vital signs: Vital Signs Temp 97.5 F L 07/06/18 12:00 Pulse 57 L 07/06/18 12:00 Resp 22 07/06/18 12:15 BP 161/78 07/06/18 12:00 Pulse Ox 93 L 07/06/18 12:15 Intake & Output 07/05/18 07/06/18 07/06/18 18:59 06:59 18:59 Intake Total 650.795 668.478 141.867 Output Total 200 200 Balance 450.795 468.478 141.867 Weight 79.5 kg Intake: Intake, IV Titration 410.795 668.478 141.867 Amount Heparin Sod,Pork in 0.45% 410.795 168.478 141.867 NaCl 25,000 unit In 0.45 % NaCl 1 500ml.bag @ 11.6 UNITS/KG/HR 19.99 mls/hr IV .Q24H [facility] Rx#: [id number] Sodium Chloride 0.9% 1, 500 000 ml @ 100 mls/hr IV . Q10H [facility] Rx#:[id number] Oral 240 Output: Urine 200 200 Other: Voiding Method Urinal Urinal Urinal Diaper Incontinent # Voids 1 1 # Bowel Movements 0 - Exam PHYSICAL EXAMINATION: GENERAL: Frail 67-year-old gentleman somewhat lethargic today. HEENT: Head is atraumatic, normocephalic. Pupils equal, round. Sclera anicteric. Conjunctiva are clear. Mucous membranes of the mouth are moist. Neck is supple. There is no elevated jugular venous pressure.] bruit is heard. HEART EXAMINATION: Heart S1 and S2 systolic ejection murmur is heard. CHEST EXAMINATION: Lungs reveal decreased air exchange throughout. ABDOMEN: [ Soft, nontender. Bowel sounds are heard. No organomegaly noted]. EXTREMITIES:[ 1+ peripheral pulses with trace evidence of peripheral edema , bilateral legs are cool. NEUROLOGIC [patient is lethargic, arouses to voice - Labs CBC & Chem 7: 07/06/18 12:17 07/06/18 06:14 Labs: Abnormal Lab Results - Last 24 Hours (Table) 07/04/18 07/05/18 07/05/18 Range/Units 18:36 05:55 14:03 RBC (4.30-5.90) m/uL Hgb (13.0-17.5) gm/dL Hct (39.0-53.0) % MCV (80.0-100.0) fL MCH (25.0-35.0) pg Lymphocytes # (1.0-4.8) k/uL APTT (22.0-30.0) sec Sodium (137-145) mmol/L Chloride (98-107) mmol/L Carbon Dioxide (22-30) mmol/L BUN (9-20) mg/dL Creatinine (0.66-1.25) mg/dL Glucose (74-99) mg/dL POC Glucose (mg/dL) 115 H (75-99) mg/dL Hemoglobin A1c 6.2 H (4.0-6.0) % Calcium (8.4-10.2) mg/dL PTH Intact 4.7 L (14.0-72.0) pg/mL 07/05/18 07/05/18 07/05/18 Range/Units 16:15 16:59 20:45 RBC (4.30-5.90) m/uL Hgb (13.0-17.5) gm/dL Hct (39.0-53.0) % MCV (80.0-100.0) fL MCH (25.0-35.0) pg Lymphocytes # (1.0-4.8) k/uL APTT (22.0-30.0) sec Sodium 136 L (137-145) mmol/L Chloride 110 H (98-107) mmol/L Carbon Dioxide (22-30) mmol/L BUN 32 H (9-20) mg/dL Creatinine 2.09 H (0.66-1.25) mg/dL Glucose (74-99) mg/dL POC Glucose (mg/dL) 115 H 239 H (75-99) mg/dL Hemoglobin A1c (4.0-6.0) % Calcium 12.1 H (8.4-10.2) mg/dL PTH Intact (14.0-72.0) pg/mL 07/05/18 07/06/18 07/06/18 Range/Units 23:33 05:52 06:14 RBC 2.09 L (4.30-5.90) m/uL Hgb 8.0 L (13.0-17.5) gm/dL Hct 24.7 L (39.0-53.0) % MCV 118.1 H (80.0-100.0) fL MCH 38.3 H (25.0-35.0) pg Lymphocytes # 0.7 L (1.0-4.8) k/uL APTT 93.9 H (22.0-30.0) sec Sodium (137-145) mmol/L Chloride (98-107) mmol/L Carbon Dioxide (22-30) mmol/L BUN (9-20) mg/dL Creatinine (0.66-1.25) mg/dL Glucose (74-99) mg/dL POC Glucose (mg/dL) 159 H (75-99) mg/dL Hemoglobin A1c (4.0-6.0) % Calcium (8.4-10.2) mg/dL PTH Intact (14.0-72.0) pg/mL 07/06/18 07/06/18 07/06/18 Range/Units 06:14 06:14 11:38 RBC (4.30-5.90) m/uL Hgb (13.0-17.5) gm/dL Hct (39.0-53.0) % MCV (80.0-100.0) fL MCH (25.0-35.0) pg Lymphocytes # (1.0-4.8) k/uL APTT 67.1 H (22.0-30.0) sec Sodium (137-145) mmol/L Chloride 113 H (98-107) mmol/L Carbon Dioxide 20 L (22-30) mmol/L BUN 34 H (9-20) mg/dL Creatinine 2.41 H (0.66-1.25) mg/dL Glucose 126 H (74-99) mg/dL POC Glucose (mg/dL) 117 H (75-99) mg/dL Hemoglobin A1c (4.0-6.0) % Calcium 11.3 H (8.4-10.2) mg/dL PTH Intact (14.0-72.0) pg/mL 07/06/18 Range/Units 12:17 RBC 2.28 L (4.30-5.90) m/uL Hgb 8.5 L (13.0-17.5) gm/dL Hct 26.1 L (39.0-53.0) % MCV 114.6 H (80.0-100.0) fL MCH 37.1 H (25.0-35.0) pg Lymphocytes # 0.5 L (1.0-4.8) k/uL APTT (22.0-30.0) sec Sodium (137-145) mmol/L Chloride (98-107) mmol/L Carbon Dioxide (22-30) mmol/L BUN (9-20) mg/dL Creatinine (0.66-1.25) mg/dL Glucose (74-99) mg/dL POC Glucose (mg/dL) (75-99) mg/dL Hemoglobin A1c (4.0-6.0) % Calcium (8.4-10.2) mg/dL PTH Intact (14.0-72.0) pg/mL Assessment and Plan Plan: Assessment and plan #1 non-ST elevation myocardial infarction, patient is currently on heparin, we did give the patient an aspirin, we will also increase his Lipitor to 80 mg daily. #2 known history of coronary artery disease with quadruple bypass performed in 2015 at [facility] #3 status post TAVR performed in February 2016 #4 hypertension #5 hyperlipidemia #6 diabetes #7 hypothyroidism #8 anemia, patient has history of iron deficiency anemia #9 acute renal insufficiency, creatinine 2.3, creatinine on the first of this month was documented to be 1.2 #10 history of CVA Plan From cardiology's perspective, we'll recommend to continue to diurese the patient and continue to monitor renal function closely. Overall prognosis is poor continue maximal medical therapy, patient is not a candidate at this time to undergo cardiac catheterization. DNP note has been reviewed, I agree with a documented findings and plan of care. Patient was seen and examined.
[2018-07-06 15:29] LABS: Glucose,Whole Blood 172 mg/dL (75-99)
[2018-07-06 15:57] LABS: ABG Base Excess -5.4 mmol/L; ABG HCO3 20 mmol/L (21-25); ABG Oxygen Saturation 99.6 % (94-97); ABG PCO2 33 mmHg (35-45); ABG PH 7.38 (7.35-7.45); ABG PO2 148 mmHg (83-108); ABG TCO2 21 mmol/L (19-24)
[2018-07-06] MEDS ORDERED: MORPHINE SULFATE 2 MG/ML SYRINGE IVP PRN (17:15)
--- NOTE | 2018-07-06 17:19 | P.PN ---
Subjective Progress Note Date: 07/06/18 Progress note being dictated for Dr. Camacho> interval history:this is a 67-year-old gentleman admitted with acute non-STEMI, acute hypoxic respiratory failure, CHF exacerbation, possible pneumonia,acute renal failure and multiple other medical issues.Evaluated by cardiology and patient currently not a candidate for cardiac catheterization with medical therapy being maximized.telemetry reporting junctional alternating with sinus bradycardia, 40's.respiratory status worsening, requiring high 8 Lflow nasal cannula,more lethargic, diaphoretic.creatinine2.4.maintained on nitroglycerin and heparin drips. Denies chest pain.maintained on Zometa with calcium, improving, 11.3. Review of systems:is significantly short of breath,confused, unable to assess at this time. Active Medications Acetaminophen (Tylenol Tab) 650 mg PO Q6HR PRN PRN Reason: Mild Pain or Fever > 100.5 Hydrocodone Bitart/Acetaminophen ([place] 5-325) 1 each PO Q6HR PRN PRN Reason: Pain Alprazolam (Xanax) 0.25 mg PO TID PRN PRN Reason: Anxiety Amlodipine Besylate (Norvasc) 10 mg PO DAILY [facility] Last Admin: 07/06/18 08:39 Dose: 10 mg Aspirin (Aspirin) 81 mg PO DAILY [facility] Atorvastatin Calcium (Lipitor) 80 mg PO HS [facility] Clopidogrel Bisulfate (Plavix) 75 mg PO DAILY [facility] Last Admin: 07/06/18 08:39 Dose: 75 mg Ferrous Sulfate (Feosol) 325 mg PO DAILY [facility] Last Admin: 07/06/18 08:30 Dose: Not Given Furosemide (Lasix) 20 mg IV Q12HR [facility] Last Admin: 07/06/18 11:54 Dose: 20 mg Heparin Sodium (Porcine) (Heparin) 0 unit IV PER PROTOCOL PRN; Protocol PRN Reason: Low PTT Last Admin: 07/05/18 17:14 Dose: 4,000 unit Heparin Sodium/Sodium Chloride (25,000 unit/ Sodium Chloride) 500 mls @ 19.99 mls/hr IV .Q24H [facility]; Protocol Last Titration: 07/06/18 07:01 Dose: 13 units/kg/hr, 22.4 mls/hr Nitroglycerin/Dextrose 50 mg/ (IV Solution) 250 mls @ 1.5 mls/hr IV .Q24H [facility]; Protocol Last Admin: 07/05/18 21:38 Dose: 5 mcg/min, 1.5 mls/hr Insulin Aspart (Novolog) 0 unit SQ ACHS [facility]; Protocol Last Admin: 07/06/18 16:39 Dose: Not Given Insulin Detemir (Levemir) 35 unit SQ DAILY [facility] Last Admin: 07/06/18 08:41 Dose: Not Given Levothyroxine Sodium (Synthroid) 125 mcg PO DAILY@0630 [facility] Last Admin: 07/06/18 06:26 Dose: Not Given Metoprolol Tartrate (Lopressor) 50 mg PO BID [facility] Last Admin: 07/06/18 08:46 Dose: Not Given Morphine Sulfate (Morphine Oral Shikha 2mg/Ml) 12 mg PO Q4HR PRN PRN Reason: Severe Pain Naloxone HCl (Narcan) 0.2 mg IV Q2M PRN PRN Reason: Opioid Reversal Pantoprazole Sodium (Protonix) 40 mg PO AC-BRKFST [facility] Last Admin: 07/06/18 06:26 Dose: Not Given Prednisolone Acetate (Pred Forte 1%) 1 drops RIGHT EYE Q4HR [facility] Last Admin: 07/06/18 13:05 Dose: Not Given Pregabalin (Lyrica) 200 mg PO BID [facility] Last Admin: 07/06/18 11:54 Dose: Not Given Venlafaxine HCl (Effexor Xr) 75 mg PO HS [facility] Last Admin: 07/05/18 19:59 Dose: 75 mg Objective - Vital Signs Vital signs: Vital Signs Temp 100.4 F H 07/06/18 15:50 Pulse 56 L 07/06/18 16:10 Resp 22 07/06/18 16:10 BP 182/63 07/06/18 16:10 Pulse Ox 100 07/06/18 16:10 Intake & Output 07/05/18 07/06/18 07/06/18 18:59 06:59 18:59 Intake Total 650.795 668.478 141.867 Output Total 200 200 Balance 450.795 468.478 141.867 Weight 79.5 kg Intake: Intake, IV Titration 410.795 668.478 141.867 Amount Heparin Sod,Pork in 0.45% 410.795 168.478 141.867 NaCl 25,000 unit In 0.45 % NaCl 1 500ml.bag @ 11.6 UNITS/KG/HR 19.99 mls/hr IV .Q24H [facility] Rx#: [id number] Sodium Chloride 0.9% 1, 500 000 ml @ 100 mls/hr IV . Q10H [facility] Rx#:[id number] Oral 240 Output: Urine 200 200 Other: Voiding Method Urinal Urinal Urinal Diaper Incontinent # Voids 1 1 # Bowel Movements 0 - Exam PHYSICAL EXAM: VITAL SIGNS: [as above] GENERAL: sitting up in bed, alert,respiratory effort increased, lethargic HEENT: Conjunctivae normal. eyes normal.oral mucosa dry NECK: positive JVD. No thyroid enlargement. No LNs CARDIOVASCULAR: S1, S2 muffled. systolic murmur RESPIRATION: Breath sounds diminished in the bases. scattered rhonchi and crackles throughout ABDOMEN: Soft, nontender . No guarding. no masses palpable. Bowel sounds heard. LEGS: positive edema PSYCHIATRY: Alert and oriented -2, mood and affect confused NERVOUS SYSTEM: Diffuse weakness No focal deficits. Lymphatic system. No LN neck axilla or groin. - Labs CBC & Chem 7: 07/06/18 12:17 07/06/18 06:14 Labs: Abnormal Lab Results - Last 24 Hours (Table) 07/04/18 07/05/18 07/05/18 Range/Units 18:36 05:55 14:03 RBC (4.30-5.90) m/uL Hgb (13.0-17.5) gm/dL Hct (39.0-53.0) % MCV (80.0-100.0) fL MCH (25.0-35.0) pg Lymphocytes # (1.0-4.8) k/uL APTT (22.0-30.0) sec ABG pCO2 (35-45) mmHg ABG pO2 (83-108) mmHg ABG HCO3 (21-25) mmol/L ABG O2 Saturation (94-97) % Sodium (137-145) mmol/L Chloride (98-107) mmol/L Carbon Dioxide (22-30) mmol/L BUN (9-20) mg/dL Creatinine (0.66-1.25) mg/dL Glucose (74-99) mg/dL POC Glucose (mg/dL) 115 H (75-99) mg/dL Hemoglobin A1c 6.2 H (4.0-6.0) % Calcium (8.4-10.2) mg/dL PTH Intact 4.7 L (14.0-72.0) pg/mL 07/05/18 07/05/18 07/05/18 Range/Units 16:15 16:59 20:45 RBC (4.30-5.90) m/uL Hgb (13.0-17.5) gm/dL Hct (39.0-53.0) % MCV (80.0-100.0) fL MCH (25.0-35.0) pg Lymphocytes # (1.0-4.8) k/uL APTT (22.0-30.0) sec ABG pCO2 (35-45) mmHg ABG pO2 (83-108) mmHg ABG HCO3 (21-25) mmol/L ABG O2 Saturation (94-97) % Sodium 136 L (137-145) mmol/L Chloride 110 H (98-107) mmol/L Carbon Dioxide (22-30) mmol/L BUN 32 H (9-20) mg/dL Creatinine 2.09 H (0.66-1.25) mg/dL Glucose (74-99) mg/dL POC Glucose (mg/dL) 115 H 239 H (75-99) mg/dL Hemoglobin A1c (4.0-6.0) % Calcium 12.1 H (8.4-10.2) mg/dL PTH Intact (14.0-72.0) pg/mL 07/05/18 07/06/18 07/06/18 Range/Units 23:33 05:52 06:14 RBC 2.09 L (4.30-5.90) m/uL Hgb 8.0 L (13.0-17.5) gm/dL Hct 24.7 L (39.0-53.0) % MCV 118.1 H (80.0-100.0) fL MCH 38.3 H (25.0-35.0) pg Lymphocytes # 0.7 L (1.0-4.8) k/uL APTT 93.9 H (22.0-30.0) sec ABG pCO2 (35-45) mmHg ABG pO2 (83-108) mmHg ABG HCO3 (21-25) mmol/L ABG O2 Saturation (94-97) % Sodium (137-145) mmol/L Chloride (98-107) mmol/L Carbon Dioxide (22-30) mmol/L BUN (9-20) mg/dL Creatinine (0.66-1.25) mg/dL Glucose (74-99) mg/dL POC Glucose (mg/dL) 159 H (75-99) mg/dL Hemoglobin A1c (4.0-6.0) % Calcium (8.4-10.2) mg/dL PTH Intact (14.0-72.0) pg/mL 07/06/18 07/06/18 07/06/18 Range/Units 06:14 06:14 11:38 RBC (4.30-5.90) m/uL Hgb (13.0-17.5) gm/dL Hct (39.0-53.0) % MCV (80.0-100.0) fL MCH (25.0-35.0) pg Lymphocytes # (1.0-4.8) k/uL APTT 67.1 H (22.0-30.0) sec ABG pCO2 (35-45) mmHg ABG pO2 (83-108) mmHg ABG HCO3 (21-25) mmol/L ABG O2 Saturation (94-97) % Sodium (137-145) mmol/L Chloride 113 H (98-107) mmol/L Carbon Dioxide 20 L (22-30) mmol/L BUN 34 H (9-20) mg/dL Creatinine 2.41 H (0.66-1.25) mg/dL Glucose 126 H (74-99) mg/dL POC Glucose (mg/dL) 117 H (75-99) mg/dL Hemoglobin A1c (4.0-6.0) % Calcium 11.3 H (8.4-10.2) mg/dL PTH Intact (14.0-72.0) pg/mL 07/06/18 07/06/18 07/06/18 Range/Units 12:17 15:27 15:55 RBC 2.28 L (4.30-5.90) m/uL Hgb 8.5 L (13.0-17.5) gm/dL Hct 26.1 L (39.0-53.0) % MCV 114.6 H (80.0-100.0) fL MCH 37.1 H (25.0-35.0) pg Lymphocytes # 0.5 L (1.0-4.8) k/uL APTT (22.0-30.0) sec ABG pCO2 33 L (35-45) mmHg ABG pO2 148 H (83-108) mmHg ABG HCO3 20 L (21-25) mmol/L ABG O2 Saturation 99.6 H (94-97) % Sodium (137-145) mmol/L Chloride (98-107) mmol/L Carbon Dioxide (22-30) mmol/L BUN (9-20) mg/dL Creatinine (0.66-1.25) mg/dL Glucose (74-99) mg/dL POC Glucose (mg/dL) 172 H (75-99) mg/dL Hemoglobin A1c (4.0-6.0) % Calcium (8.4-10.2) mg/dL PTH Intact (14.0-72.0) pg/mL Assessment and Plan Assessment: 1. acute non-STEMI 2.atrial fibrillation with RVR 3. Acute hypoxic respiratory failure secondary to acute CHF exacerbation, diastolic dysfunction, EF 55-60%possibly pneumonia, currently on high flow nasal cannula 4. Hypercalcemia 5. anemia of chronic disease,iron deficient 6. Acute renal failure, possibly prerenal, acute tubular necrosis secondary to hypercalcemia 7. DM II6 diabetes mellitus type 2 8. CAD, history of TAVR,CABG - both in 2016 9. History of CVA, TIA 10. History of nicotine dependence 11. Hypertension 12. Mild to moderate mitral regurgitation plan: Continue on current medication regime ,monitoring and symptomatic treatment.shortness of breath/Hypoxia worsening,IV fluids discontinued.Additional Lasix ordered. chest x-ray ordered. Pulmonary consult initiated.transfer to ICU, BiPAP. Heparin drip and nitroglycerin drips continue as per cardiology.close monitoring of renal function, electrolytes with repeat labs ordered for a.m. Maximizing medical history as per cardiology. Prognosis extremely guarded given multiple complex medical issues. The impression and plan of care has been dictated as directed. : I performed a history and examination of this patient, discussed the same with the dictator. I agree with the dictator's note ,documented as a scribe. Any additional findings or plans will be noted.
[2018-07-06 17:28] LABS: Appearance,Urine Clear (Clear); Bilirubin,Urine Negative (Negative); Blood,Urine Negative (Negative); Color,Urine Light Yellow; Glucose,Urine (UA) Negative (Negative); Ketones,Urine Negative (Negative); Leukocyte Esterase,Urine Negative (Negative); Nitrite,Urine Negative (Negative); Protein,Urine Trace (Negative); Specific Gravity,Urine 1.009 (1.001-1.035); Urobilinogen,Urine <2.0 mg/dL (<2.0)
--- NOTE | 2018-07-06 17:29 | P.CNPUL ---
History of Present Illness Consult date: 07/06/18 Reason for consult: dyspnea History of present illness: 67-year-old male patient who came into the ICU with acute hypoxic respiratory failure. The patient was found to be profoundly hypoxic on the telemetry unit and the patient was placed on a high flow oxygen and subsequently he is placed on a BiPAP at a pressure of 12/5 cm of water and FiO2 of 100% and he got moved to the intensive care unit. The patient is known to have coronary artery disease. He underwent coronary artery bypass surgery back in 2016 and he underwent four-vessel bypass surgery that was done by Dr. Nathan Moeller. Patient underwent SANTOS to LAD saphenous vein graft to OM 1 OM 2 and distal RCA. Subsequently also underwent aortic TAVR. The patient is also known to have multiple medical problems including previous history of CVA and residual left- sided weakness, diabetes mellitus, hypertension and hyperlipidemia and is a chronic smoker continues to smoke cigarettes. Over the past 3 days the patient was having some altered mentation. He was on and off found by family members to be confused. Subsequently he started having intermittent chest pain. Apparently was having symptoms of heartburn and he was over utilizing Tums and he was taking Tums tablet up to 10 tablets on a daily basis. He was not getting much relief. He came into the hospital and in the ED the patient was found to have a BP of 190/80 with a pulse ox of 98% on 2 L and a heart rate of 120 irregular consistent with atrial fibrillation and rapid ventricular response. The patient also had EKG changes with some nonspecific ST/ST segment abnormalities and depression in the lateral leads. [id number] in for acute non-ST segment elevation myocardial infarction and troponin peaked at 27. The patient also developed an acute kidney injury. His calcium level was at 14. He was started on IV heparin. He was also started on nitroglycerin drip for blood pressure control. He is current rhythm is sinus bradycardia with occasional brief junctional rhythms. The patient is free of any chest pain. His mental status is still altered yet the patient is not agitated. He is following simple commands. Moving all 4 extremities with some known left- sided weakness compared to the right because of previous CVA. His chest x-ray was essentially within normal limits at the time of admission and subsequently developed at the pulmonary infiltrates consistent with acute pulmonary edema. Echo of the heart showed a preserved LV function without any significant valvular abnormalities. A Araujo catheter was inserted and immediately fell and 350 mL of urine output was obtained. The patient was also started on IV Lasix and currently receiving Lasix 40 mg IV push every 12 hours. Pulses are palpable in lower extremities bilaterally. Abdomen is at the bedside and I did ask discussion with the patient's daughter and the . They told me that the patient did not want any intubation mechanical ventilation. BiPAP was okay by them. Per family's wishes the patient is a DNR/DNI CODE STATUS. Note that the patient also has history of prostate cancer yet this is localized and nonmetastatic at this stage and the hypercalcemia is unlikely to be related to his prostate cancer. Review of Systems Unable to obtain a full review of system. I reviewed the records. The patient is currently on BiPAP with a full facemask. Note that the CAT scan of the brain has not been done. ROS unobtainable: due to mental status Past Medical History Past Medical History: CVA/TIA, Diabetes Mellitus, Hyperlipidemia, Hypertension, Myocardial Infarction (SD), Neurologic Disorder, Pneumonia, Seizure Disorder, Thyroid Disorder Additional Past Medical History / Comment(s): Coronary artery disease, four- vessel bypass surgery, aortic valve replacement TAVR, prostate cancer, previous CVA, diabetes mellitus, hypertension, hyperlipidemia, chronic anemia, chronic smoker, previous history of agent orange exposure, there is history of skin disease of an unknown type, hypothyroidism, iron deficiency anemia, peripheral vascular disease, hematologic disease of an unknown type at this point in time and the patient has been seen by Dr. hidalgo and the patient has been maintained on Hydrea, peripheral neuropathy on Lyrica, Last Myocardial Infarction Date:: 02/17/2016 History of Any Multi-Drug Resistant Organisms: None Reported Past Surgical History: Coronary Bypass/CABG, Heart Catheterization, Orthopedic Surgery Additional Past Surgical History / Comment(s): 02/19/16 cardiac cath, 02/24/16 CABG quadrupal with aortic valve replacement (TAVR), RT HAND INDEX FINGER BONE CHIP REMOVED, RT WRIST(JAMMED) PT STATED THEY CUT THE BONE AND REALIGNED IT, colonoscopy, bilateral cataract removals/lens implants. Past Anesthesia/Blood Transfusion Reactions: No Reported Reaction Smoking Status: Former smoker - Past Family History Father Family Medical History: Coronary Artery Disease (CAD) Additional Family Medical History / Comment(s): VASCULAR PROBLEMS/valve replacement. Mother Family Medical History: Coronary Artery Disease (CAD) Additional Family Medical History / Comment(s): VASCULAR PROBLEMS HAD PIG VALVE. Medications and Allergies Home Medications Medication Instructions Recorded Confirmed Type Aspirin EC [Ecotrin] 325 mg PO DAILY 02/17/16 07/04/18 History Hydroxyurea [Hydrea] 1,000 mg PO MOTUWETHFR 02/17/16 07/04/18 History Insulin Glargine [Lantus] 35 unit SQ DAILY 02/17/16 07/04/18 History Metoprolol Tartrate [Lopressor] 50 mg PO BID 02/17/16 07/04/18 History amLODIPine BESYLATE [Norvasc] 10 mg PO DAILY 02/17/16 07/04/18 History metFORMIN HCL [Glucophage] 500 mg PO BID 02/17/16 07/04/18 History Clopidogrel [Plavix] 75 mg PO DAILY 03/11/16 07/04/18 History Ferrous Sulfate [Iron (65 MG 325 mg PO DAILY 03/11/16 07/04/18 History Elemental)] Hydroxyurea 500 mg PO SUSA 06/14/18 07/04/18 History Levothyroxine Sodium [Synthroid] 125 mcg PO DAILY 06/14/18 07/04/18 History Atorvastatin [Lipitor] 20 mg PO HS 07/04/18 07/04/18 History Pregabalin [Lyrica] 200 mg PO BID 07/04/18 07/04/18 History Venlafaxine HCl [Effexor XR] 75 mg PO HS 07/04/18 07/04/18 History prednisoLONE ACETATE 1% OPHTH 1 drops RIGHT EYE Q4HR 07/04/18 07/04/18 History [Pred Forte 1%] Allergies Allergy/AdvReac Type Severity Reaction Status Date / Time No Known Allergies Allergy Verified 07/04/18 19:29 Physical Exam Vitals: Vital Signs Temp Pulse Pulse Resp BP BP Pulse Ox 07/06/18 16:10 56 L 22 182/63 100 07/06/18 16:00 57 L 21 165/49 100 07/06/18 15:50 100.4 F H 54 L 22 165/49 100 07/06/18 15:40 50 L 22 165/49 99 07/06/18 15:37 58 L 23 165/49 100 07/06/18 12:15 22 93 L 07/06/18 12:00 97.5 F L 57 L 22 161/78 78 L 07/06/18 08:00 98.0 F 48 L 16 158/62 95 07/06/18 06:26 97.8 F 07/06/18 04:00 100 F H 50 L 18 121/54 94 L 07/06/18 00:00 97 F L 51 L 18 115/51 96 07/05/18 20:00 97 F L 47 L 18 125/47 97 Intake and Output 07/06/18 07/06/18 07/06/18 06:59 14:59 22:59 Intake Total 79.273 141.867 Output Total 200 Balance -120.727 141.867 Intake: Intake, IV Titration 79.273 141.867 Amount Heparin Sod,Pork in 0.45% 79.273 141.867 NaCl 25,000 unit In 0.45 % NaCl 1 500ml.bag @ 11.6 UNITS/KG/HR 19.99 mls/hr IV .Q24H [facility] Rx#: [id number] Output: Urine 200 Other: Voiding Method Urinal Urinal Diaper Incontinent # Voids 1 1 # Bowel Movements 0 Weight 79.5 kg Gen. appearance the patient is a mild degree of respirator distress. He is following some simple commands. He opens his eyes spontaneously. He is tolerating a full face BiPAP mask at a pressure of 12/5 cm of water. Head exam was generally normal. There was no scleral icterus or corneal arcus. Mucous membranes were moist. Neck was supple and without jugular venous distension, thyromegaly, or carotid bruits. Carotids were easily palpable bilaterally. There was no adenopathy. Lungs sounds are diminished bilaterally and there is crackles in the mid in the lower lung alvarez and some few scattered expiratory wheeze. Heart sounds are regular, somewhat bradycardic, so no significant murmurs appreciated. No right ventricular heave or thrill. Abdominal exam revealed normal bowel sounds. The abdomen was soft, non-tender, and without masses, organomegaly, or appreciable enlargement of the abdominal aorta. Examination of the extremities revealed easily palpable radial, femoral and pedal pulses. There was no cyanosis, clubbing or edema. Examination of the skin revealed no evidence of significant rashes, suspicious appearing nevi or other concerning lesions. Neurologically, follows some simple commands. At times he is a bit restless and sized to reach out to his mask yet no significant agitation at this point in time. It was mentioned to me that his left side is slightly weaker compared to the right. No Babinski. No clonus. No pupil asymmetry. Results - Laboratory Findings CBC and BMP: 07/06/18 12:17 07/06/18 06:14 ABG ABG pH 7.38 (7.35-7.45) 07/06/18 15:55 ABG pCO2 33 mmHg (35-45) L 07/06/18 15:55 ABG pO2 148 mmHg (83-108) H 07/06/18 15:55 ABG O2 Saturation 99.6 % (94-97) H 07/06/18 15:55 PT/INR, D-dimer PT 10.5 sec (9.0-12.0) 07/06/18 06:14 INR 1.1 (<1.2) 07/06/18 06:14 Abnormal lab findings: Abnormal Labs 07/04/18 07/04/18 07/04/18 18:36 18:36 18:36 RBC 3.09 L Hgb 11.4 L Hct 35.4 L MCV 114.4 H MCH 36.9 H Lymphocytes # APTT ABG pCO2 ABG pO2 ABG HCO3 ABG O2 Saturation Sodium Potassium 3.3 L Chloride Carbon Dioxide BUN 36 H Creatinine 2.49 H Glucose 171 H POC Glucose (mg/dL) Hemoglobin A1c Calcium 14.4 H* Magnesium 1.5 L AST Alkaline Phosphatase 130 H Total Creatine Kinase CK-MB (CK-2) Troponin I 0.048 H* Total Protein Albumin PTH Intact 07/04/18 07/04/18 07/04/18 18:36 18:36 23:45 RBC Hgb Hct MCV MCH Lymphocytes # APTT 19.9 L 45.0 H ABG pCO2 ABG pO2 ABG HCO3 ABG O2 Saturation Sodium Potassium Chloride Carbon Dioxide BUN Creatinine Glucose POC Glucose (mg/dL) Hemoglobin A1c 6.2 H Calcium Magnesium AST Alkaline Phosphatase Total Creatine Kinase CK-MB (CK-2) Troponin I Total Protein Albumin PTH Intact 07/04/18 07/05/18 07/05/18 23:45 05:55 05:55 RBC 2.44 L Hgb 9.3 L D Hct 28.3 L MCV 116.3 H MCH 38.1 H Lymphocytes # 0.9 L APTT ABG pCO2 ABG pO2 ABG HCO3 ABG O2 Saturation Sodium Potassium Chloride 108 H Carbon Dioxide BUN 34 H Creatinine 2.30 H Glucose 114 H POC Glucose (mg/dL) Hemoglobin A1c Calcium 13.5 H* Magnesium AST 96 H Alkaline Phosphatase Total Creatine Kinase 307 H CK-MB (CK-2) 24.6 H* Troponin I 7.180 H* Total Protein 5.4 L Albumin 2.9 L PTH Intact 07/05/18 07/05/18 07/05/18 05:55 05:55 05:55 RBC Hgb Hct MCV MCH Lymphocytes # APTT 20.8 L ABG pCO2 ABG pO2 ABG HCO3 ABG O2 Saturation Sodium Potassium Chloride Carbon Dioxide BUN Creatinine Glucose POC Glucose (mg/dL) Hemoglobin A1c Calcium Magnesium AST Alkaline Phosphatase Total Creatine Kinase 519 H CK-MB (CK-2) 43.8 H* Troponin I 30.400 H* Total Protein Albumin PTH Intact 4.7 L 07/05/18 07/05/18 07/05/18 08:01 11:51 14:03 RBC Hgb Hct MCV MCH Lymphocytes # APTT ABG pCO2 ABG pO2 ABG HCO3 ABG O2 Saturation Sodium Potassium Chloride Carbon Dioxide BUN Creatinine Glucose POC Glucose (mg/dL) 137 H 115 H Hemoglobin A1c Calcium Magnesium AST Alkaline Phosphatase Total Creatine Kinase 414 H CK-MB (CK-2) 37.7 H* Troponin I 23.200 H* Total Protein Albumin PTH Intact 07/05/18 07/05/18 07/05/18 16:15 16:59 20:45 RBC Hgb Hct MCV MCH Lymphocytes # APTT ABG pCO2 ABG pO2 ABG HCO3 ABG O2 Saturation Sodium 136 L Potassium Chloride 110 H Carbon Dioxide BUN 32 H Creatinine 2.09 H Glucose POC Glucose (mg/dL) 115 H 239 H Hemoglobin A1c Calcium 12.1 H Magnesium AST Alkaline Phosphatase Total Creatine Kinase CK-MB (CK-2) Troponin I Total Protein Albumin PTH Intact 07/05/18 07/06/18 07/06/18 23:33 05:52 06:14 RBC 2.09 L Hgb 8.0 L Hct 24.7 L MCV 118.1 H MCH 38.3 H Lymphocytes # 0.7 L APTT 93.9 H ABG pCO2 ABG pO2 ABG HCO3 ABG O2 Saturation Sodium Potassium Chloride Carbon Dioxide BUN Creatinine Glucose POC Glucose (mg/dL) 159 H Hemoglobin A1c Calcium Magnesium AST Alkaline Phosphatase Total Creatine Kinase CK-MB (CK-2) Troponin I Total Protein Albumin PTH Intact 07/06/18 07/06/18 07/06/18 06:14 06:14 11:38 RBC Hgb Hct MCV MCH Lymphocytes # APTT 67.1 H ABG pCO2 ABG pO2 ABG HCO3 ABG O2 Saturation Sodium Potassium Chloride 113 H Carbon Dioxide 20 L BUN 34 H Creatinine 2.41 H Glucose 126 H POC Glucose (mg/dL) 117 H Hemoglobin A1c Calcium 11.3 H Magnesium AST Alkaline Phosphatase Total Creatine Kinase CK-MB (CK-2) Troponin I Total Protein Albumin PTH Intact 07/06/18 07/06/18 07/06/18 12:17 15:27 15:55 RBC 2.28 L Hgb 8.5 L Hct 26.1 L MCV 114.6 H MCH 37.1 H Lymphocytes # 0.5 L APTT ABG pCO2 33 L ABG pO2 148 H ABG HCO3 20 L ABG O2 Saturation 99.6 H Sodium Potassium Chloride Carbon Dioxide BUN Creatinine Glucose POC Glucose (mg/dL) 172 H Hemoglobin A1c Calcium Magnesium AST Alkaline Phosphatase Total Creatine Kinase CK-MB (CK-2) Troponin I Total Protein Albumin PTH Intact - Diagnostic Findings Chest x-ray: image reviewed Assessment and Plan Plan: Assessment 1 acute hypoxic history failure, currently on BiPAP for respiratory support at a pressure of 12/5 cm of water. The patient developed bilateral pulmonary infiltrates consistent with acute heart failure/CHF. Superimposed pneumonia is felt to be less likely. 2 coronary artery disease with previous four-vessel bypass surgery 3 acute non-ST segment elevation myocardial infarction with secondary chest pain 4 acute kidney injury 5 acute hypercalcemia likely to excessive intake of Tums on outpatient basis 6 previous history aortic valve replacement TAVR 7 atrial fibrillation of a new onset, converted into normal sinus rhythm, currently in sinus bradycardia with occasional junctional mechanism 8 previous history of CVA 9 diabetes mellitus 10 diabetic peripheral neuropathy 11 peripheral vascular disease 12 hematologic disorder maintained on Hydrea on outpatient basis exact type is not known to me at this point 13 history of chronic iron deficiency anemia 14 prostate cancer 15 hypothyroidism 16 DNR/DNI CODE STATUS Plan Condition is critical. Continue BiPAP for rest of the supportive. Wean down the FiO2 as tolerated to maintain a saturation above 90%. Current FiO2 is at 80 %. Continue IV heparin. Continue IV nitroglycerin. Continue aspirin and Plavix. Continue metoprolol 50 mg twice a day. Continue monitoring the respiratory status and add morphine 2 mg every 4-6 hours for increased anxiety, agitation and pain. Monitor electrolytes. Monitor renal function per Araujo catheter is in place. Echocardiac Dung was noted. Abdomen padding antibiotic coverage and I will suggest addition of Zosyn with renal adjustment dose. Cardiology is on the case. No immediate plans for a physician at this point. Echo was noted and the patient has preserved LV function. The prosthetic valve is also functional and there is no valvular dysfunction or leak. There is mild to moderate degree of mitral regurgitation present. No evidence of any pulmonary hypertension. Condition is critical. We'll continue to follow.
[2018-07-06 18:09] LABS: Glucose,Whole Blood 133 mg/dL (75-99)
[2018-07-06] MEDS: hydrALAZINE HCL 20 MG/ML 1 ML VIAL IVP PRN ×2 (19:32→21:17)
[2018-07-06 20:57] LABS: Glucose,Whole Blood 123 mg/dL (75-99)
[2018-07-06 21:01] LABS: Magnesium 1.8 mg/dL (1.6-2.3); Potassium 3.7 mmol/L (3.5-5.1)
[2018-07-06] MEDS: HEPARIN SOD,PORK IN 0.45% NACL 25,000 UNIT in 0.45% NACL 1 500ML.BAG IV SCH (21:15)
[2018-07-06] MEDS ORDERED: Magnesium Replacement Protocol 1 EACH MISC MISCELLANE PRN (21:31)
[2018-07-06] MEDS: ATORVASTATIN 80 MG TAB PO SCH (21:41)
[2018-07-06] MEDS: MAGNESIUM SULFATE-D5W PMX 1 GM in DEXTROSE/WATER 1 100ML.BAG IVPB SCH (22:23)
[2018-07-06] MEDS: POTASSIUM CHLORIDE 20 MEQ in WATER FOR INJECTION 1 100ML.BAG IVPB SCH (22:24)
[2018-07-06] MEDS: NITROGLYCERIN-D5W PMX 50 MG in DEXTROSE/WATER 1 250ML.BAG IV SCH (22:50)
[2018-07-06] MEDS: VENLAFAXINE HCL ER 75 MG CAP PO SCH (22:51)
[2018-07-07] MEDS: POTASSIUM CHLORIDE 20 MEQ in WATER FOR INJECTION 1 100ML.BAG IVPB SCH (00:51)
[2018-07-07] MEDS: MAGNESIUM SULFATE-D5W PMX 1 GM in DEXTROSE/WATER 1 100ML.BAG IVPB SCH (00:51)
[2018-07-07] MEDS: PIPERACILLIN-TAZOBACTAM 3.375 GM in DEXTROSE/WATER 1 50ML.BAG IVPB SCH ×3 (00:56→16:42)
[2018-07-07] MEDS: hydrALAZINE HCL 20 MG/ML 1 ML VIAL IVP PRN (02:12)
[2018-07-07 04:53] LABS: Basophils % (A) 0 %; Eosinophils % (A) 1 %; HCT 26.6 % (39.0-53.0); HGB 8.5 gm/dL (13.0-17.5); Lymphocytes # (A) 0.5 k/uL (1.0-4.8); Lymphocytes % (A) 10 %; MCH 37.4 pg (25.0-35.0); MCHC 31.8 g/dL (31.0-37.0); MCV 117.6 fL (80.0-100.0); Macrocytosis Marked; Mean Platelet Volume 6.9; Monocytes # (A) 0.3 k/uL (0-1.0); Monocytes % (A) 6 %; Neutrophils # (A) 3.9 k/uL (1.3-7.7); Neutrophils % (A) 82 %; Platelet Count 325 k/uL (150-450); RBC 2.27 m/uL (4.30-5.90); RDW 14.9 % (11.5-15.5); WBC 4.8 k/uL (3.8-10.6)
[2018-07-07 05:01] LABS: INR 1.1 (<1.2); Prothrombin Time 10.6 sec (9.0-12.0)
[2018-07-07 05:43] LABS: Albumin 2.9 g/dL (3.5-5.0); Calcium 10.4 mg/dL (8.4-10.2); Magnesium 2.3 mg/dL (1.6-2.3); Phosphorus 2.4 mg/dL (2.5-4.5); Potassium 3.8 mmol/L (3.5-5.1); Total Bilirubin 0.4 mg/dL (0.2-1.3); Total Protein 5.4 g/dL (6.3-8.2)
[2018-07-07] MEDS ORDERED: Potassium Replacement Protocol 1 EACH MISC MISCELLANE PRN (06:02)
--- NOTE | 2018-07-07 06:24 | P.PN ---
Subjective Progress Note Date: 07/07/18 Principal diagnosis: This is a 67-year-old male seen in consultation because of hypercalcemia and acute kidney injury, hypercalcemia is from large amounts of Tums he was taking as well as some vitamin D preparation.. He came in with a calcium of 14.4 and creatinine of 2.49. Baseline creatinine is 1.2 with a GFR of 62 and permanent. He came in with chest pain, acute [place], and is currently pain free on nitroglycerin drip, his troponin went up to 30 and he has an acute [place]. His calcium is responded to the 2 mg of Zometa and IV fluids with Lasix. This morning he is on BiPAP somewhat short of breath. He is awake and alert denies any chest pain. While signs are stable urine output is 16 95 mL. 0 Objective - Vital Signs Vital signs: Vital Signs Temp 98.2 F 07/07/18 04:00 Pulse 51 L 07/07/18 05:00 Resp 19 07/07/18 05:00 BP 143/48 07/07/18 05:00 Pulse Ox 98 07/07/18 05:00 Intake & Output 07/06/18 07/06/18 07/07/18 06:59 18:59 06:59 Intake Total 668.478 141.867 766.66 Output Total 200 880 815 Balance 468.478 -738.133 -48.34 Weight 79.5 kg 83.4 kg Intake: IV 450 .9 100 Magnesium Sulfate-D5w Pmx 100 1 gm In Dextrose/Water 1 100ml.bag @ 100 mls/hr IVPB Q1H [facility] Rx#: [id number] Piperacillin-Tazobactam 3 50 .375 gm In Dextrose/Water 1 50ml.bag @ 12.5 mls/hr IVPB Q8HR [facility] Rx#: [id number] Potassium Chloride 20 meq 200 In Water For Injection 1 100ml.bag @ 50 mls/hr IVPB Q2HR [facility] Rx#: [id number] Intake, IV Titration 668.478 141.867 316.66 Amount Heparin Sod,Pork in 0.45% 168.478 141.867 278.86 NaCl 25,000 unit In 0.45 % NaCl 1 500ml.bag @ 11.6 UNITS/KG/HR 19.99 mls/hr IV .Q24H [facility] Rx#: [id number] Nitroglycerin-D5w Pmx 50 37.8 mg In Dextrose/Water 1 250ml.bag @ 5 MCG/MIN 1.5 mls/hr IV .Q24H [facility] Rx#: [id number] Sodium Chloride 0.9% 1, 500 000 ml @ 100 mls/hr IV . Q10H [facility] Rx#:[id number] Output: Urine 200 880 815 Uretheral (Araujo) 350 Other: Voiding Method Urinal Indwelling Catheter Indwelling Catheter # Voids 1 1 # Bowel Movements 0 On examination is awake alert. He is on BiPAP. JVP is difficult to see neck is supple no facial asymmetry Lungs are significant for somewhat diminished breath sounds and occasional fine crackle. Heart sounds are unremarkable no murmur rub gallop. He is showing multiple extrasystoles abdomen soft nontender nondistended Extremity exam was no edema Neurologically awake alert. His had in the past CVA on the left side with residual weakness - Labs CBC & Chem 7: 07/07/18 04:33 07/07/18 04:33 Labs: Abnormal Lab Results - Last 24 Hours (Table) 07/04/18 07/05/18 07/06/18 Range/Units 18:36 05:55 06:14 RBC 2.09 L (4.30-5.90) m/uL Hgb 8.0 L (13.0-17.5) gm/dL Hct 24.7 L (39.0-53.0) % MCV 118.1 H (80.0-100.0) fL MCH 38.3 H (25.0-35.0) pg Lymphocytes # 0.7 L (1.0-4.8) k/uL APTT (22.0-30.0) sec ABG pCO2 (35-45) mmHg ABG pO2 (83-108) mmHg ABG HCO3 (21-25) mmol/L ABG O2 Saturation (94-97) % Chloride (98-107) mmol/L Carbon Dioxide (22-30) mmol/L BUN (9-20) mg/dL Creatinine (0.66-1.25) mg/dL Glucose (74-99) mg/dL POC Glucose (mg/dL) (75-99) mg/dL Hemoglobin A1c 6.2 H (4.0-6.0) % Calcium (8.4-10.2) mg/dL Phosphorus (2.5-4.5) mg/dL Total Protein (6.3-8.2) g/dL Albumin (3.5-5.0) g/dL PTH Intact 4.7 L (14.0-72.0) pg/mL Urine Protein (Negative) 07/06/18 07/06/18 07/06/18 Range/Units 06:14 06:14 11:38 RBC (4.30-5.90) m/uL Hgb (13.0-17.5) gm/dL Hct (39.0-53.0) % MCV (80.0-100.0) fL MCH (25.0-35.0) pg Lymphocytes # (1.0-4.8) k/uL APTT 67.1 H (22.0-30.0) sec ABG pCO2 (35-45) mmHg ABG pO2 (83-108) mmHg ABG HCO3 (21-25) mmol/L ABG O2 Saturation (94-97) % Chloride 113 H (98-107) mmol/L Carbon Dioxide 20 L (22-30) mmol/L BUN 34 H (9-20) mg/dL Creatinine 2.41 H (0.66-1.25) mg/dL Glucose 126 H (74-99) mg/dL POC Glucose (mg/dL) 117 H (75-99) mg/dL Hemoglobin A1c (4.0-6.0) % Calcium 11.3 H (8.4-10.2) mg/dL Phosphorus (2.5-4.5) mg/dL Total Protein (6.3-8.2) g/dL Albumin (3.5-5.0) g/dL PTH Intact (14.0-72.0) pg/mL Urine Protein (Negative) 07/06/18 07/06/18 07/06/18 Range/Units 12:17 15:27 15:30 RBC 2.28 L (4.30-5.90) m/uL Hgb 8.5 L (13.0-17.5) gm/dL Hct 26.1 L (39.0-53.0) % MCV 114.6 H (80.0-100.0) fL MCH 37.1 H (25.0-35.0) pg Lymphocytes # 0.5 L (1.0-4.8) k/uL APTT (22.0-30.0) sec ABG pCO2 (35-45) mmHg ABG pO2 (83-108) mmHg ABG HCO3 (21-25) mmol/L ABG O2 Saturation (94-97) % Chloride (98-107) mmol/L Carbon Dioxide (22-30) mmol/L BUN (9-20) mg/dL Creatinine (0.66-1.25) mg/dL Glucose (74-99) mg/dL POC Glucose (mg/dL) 172 H (75-99) mg/dL Hemoglobin A1c (4.0-6.0) % Calcium (8.4-10.2) mg/dL Phosphorus (2.5-4.5) mg/dL Total Protein (6.3-8.2) g/dL Albumin (3.5-5.0) g/dL PTH Intact (14.0-72.0) pg/mL Urine Protein Trace H (Negative) 07/06/18 07/06/18 07/06/18 Range/Units 15:55 18:07 20:56 RBC (4.30-5.90) m/uL Hgb (13.0-17.5) gm/dL Hct (39.0-53.0) % MCV (80.0-100.0) fL MCH (25.0-35.0) pg Lymphocytes # (1.0-4.8) k/uL APTT (22.0-30.0) sec ABG pCO2 33 L (35-45) mmHg ABG pO2 148 H (83-108) mmHg ABG HCO3 20 L (21-25) mmol/L ABG O2 Saturation 99.6 H (94-97) % Chloride (98-107) mmol/L Carbon Dioxide (22-30) mmol/L BUN (9-20) mg/dL Creatinine (0.66-1.25) mg/dL Glucose (74-99) mg/dL POC Glucose (mg/dL) 133 H 123 H (75-99) mg/dL Hemoglobin A1c (4.0-6.0) % Calcium (8.4-10.2) mg/dL Phosphorus (2.5-4.5) mg/dL Total Protein (6.3-8.2) g/dL Albumin (3.5-5.0) g/dL PTH Intact (14.0-72.0) pg/mL Urine Protein (Negative) 07/07/18 07/07/18 07/07/18 Range/Units 04:33 04:33 04:33 RBC 2.27 L (4.30-5.90) m/uL Hgb 8.5 L (13.0-17.5) gm/dL Hct 26.6 L (39.0-53.0) % MCV 117.6 H (80.0-100.0) fL MCH 37.4 H (25.0-35.0) pg Lymphocytes # 0.5 L (1.0-4.8) k/uL APTT 52.0 H (22.0-30.0) sec ABG pCO2 (35-45) mmHg ABG pO2 (83-108) mmHg ABG HCO3 (21-25) mmol/L ABG O2 Saturation (94-97) % Chloride 111 H (98-107) mmol/L Carbon Dioxide 21 L (22-30) mmol/L BUN 36 H (9-20) mg/dL Creatinine 2.30 H (0.66-1.25) mg/dL Glucose 158 H (74-99) mg/dL POC Glucose (mg/dL) (75-99) mg/dL Hemoglobin A1c (4.0-6.0) % Calcium 10.4 H (8.4-10.2) mg/dL Phosphorus 2.4 L (2.5-4.5) mg/dL Total Protein 5.4 L (6.3-8.2) g/dL Albumin 2.9 L (3.5-5.0) g/dL PTH Intact (14.0-72.0) pg/mL Urine Protein (Negative) Assessment and Plan Assessment: Impression 1. Acute kidney injury secondary to hypercalcemia. Creatinine is starting to trend down to 2.3 from 2.41. His admission creatinine was 2.49. He might have an element of prerenal from congestive heart failure.. 2. Hypercalcemia secondary to excessive Tums intake, as well as some kind of a vitamin D pill 3 times a week although his not listed on his med list. Calcium is down to 10.4 3. Admitted with chest pain acute [place] troponins 30. Pain-free on nitroglycerin drip. Troponin down to 23 units as of yesterday 4. History of coronary artery bypass graft with aortic valve replacement on 02/24/2016 at . 5. Left-sided CVA with residual weakness 6. Anemia, hemoglobin went down from 11.4-8.5 in the hospital for the last 2 days, no obvious GI bleed. Some of it is from hydration and dilution 7. Congestive heart failure Recommendation. 1. Discontinue IV normal saline at 100 mL an hour. and cont Lasix 20 mg every 12 hour. The use of Lasixs is to address the risk of CHF in a patient with acute [place]. 2. Monitor calcium and renal function 3. Monitor I's and O's strictly. 4. Keep blood pressure around 110 to 1:30 6. Avoid any nephrotoxic medications.
[2018-07-07] MEDS: LEVOTHYROXINE 125 MCG TAB PO SCH (06:34)
[2018-07-07 06:37] LABS: Glucose,Whole Blood 177 mg/dL (75-99)
[2018-07-07] MEDS: INSULIN ASPART 100 UNIT/ML 1 ML 10 ML VIAL SQ SCH ×4 (06:49→20:50)
[2018-07-07] MEDS ORDERED: POTASSIUM CHLORIDE ER 20 MEQ TAB.ER PO SCH (07:00)
--- NOTE | 2018-07-07 07:59 | XR ---
EXAMINATION TYPE: XR chest 1V DATE OF EXAM: 07/07/2018 COMPARISON: Prior chest x-ray 07/06/2018 HISTORY: Shortness of breath TECHNIQUE: Single frontal view of the chest is obtained. FINDINGS: Patient is rotated and post median sternotomy. Central vascularity and interstitium are in creased however there is improvement in aeration. No pneumothorax or pleural effusion. IMPRESSION: Suspect improvement in aeration, volume status although there are differences in techniq ue, additional follow-up recommended.
[2018-07-07] MEDS: PANTOPRAZOLE 40 MG TABLET PO SCH (08:20)
[2018-07-07] MEDS: PREGABALIN 100 MG CAP PO SCH ×2 (08:20→20:49)
[2018-07-07] MEDS: FUROSEMIDE 10 MG/ML 2 ML VIAL IV SCH ×2 (08:20→20:50)
[2018-07-07] MEDS: METOPROLOL TARTRATE 50 MG TAB PO SCH ×2 (08:20→20:50)
[2018-07-07] MEDS: FERROUS SULFATE 325 MG TAB PO SCH (08:20)
[2018-07-07] MEDS: ASPIRIN 81 MG PO SCH (08:21)
[2018-07-07] MEDS: amLODIPine 10 MG TAB PO SCH (08:21)
[2018-07-07] MEDS: CLOPIDOGREL 75 MG TAB PO SCH (08:21)
[2018-07-07] MEDS: INSULIN DETEMIR 100 UNIT/ML 10 ML VIAL SQ SCH (08:22)
[2018-07-07] MEDS ORDERED: FUROSEMIDE 10 MG/ML 2 ML VIAL IV ONE (10:42)
--- NOTE | 2018-07-07 11:11 | P.PN ---
Subjective Progress Note Date: 07/07/18 Principal diagnosis: Acute non-ST deviation my This is a pleasant 67-year-old gentleman with a past medical history significant for coronary artery disease with coronary artery stenting in 2016 and coronary artery bypass grafting where the patient received SANTOS to LAD, SVG to OM, SVG to OM, and SVG to RCA. Subsequently the patient underwent TAVR. He also does have hypertension, dyslipidemia, and history of CVA. The patient was admitted to the hospital with acute non-ST deviation myocardial infarction complicated by congestive heart failure exacerbation. The echo revealed normal LV function. The patient was treated medically because of his advanced renal failure. Yesterday he was transferred to the intensive care unit after the A team was called because the patient was severely agitated. On follow-up with the patient today, he denies having any chest pain or discomfort but he still short of breath. He still have bilateral crackles on examination. The chest x-ray continues to show findings consistent with CHF. The troponin is trending down. He continues to be on dual antiplatelet therapy along with high intensity statin along with beta romaine as well. I recommended continue the current medical regimen. DC the heparin by tomorrow. The right wean him from nitro and possibly start the patient on oral nitrate tomorrow as well. Continue Lasix IV and continue monitor the kidney function and electrolytes. Objective - Vital Signs Vital signs: Vital Signs Temp 98.2 F 07/07/18 04:00 Pulse 51 L 07/07/18 10:00 Resp 13 07/07/18 10:00 BP 135/69 07/07/18 10:00 Pulse Ox 91 L 07/07/18 10:00 Intake & Output 07/06/18 07/07/18 07/07/18 18:59 06:59 18:59 Intake Total 141.867 776.66 30 Output Total 880 865 210 Balance -738.133 -88.34 -180 Weight 83.4 kg Intake: IV 460 30 .9 110 30 Magnesium Sulfate-D5w Pmx 100 1 gm In Dextrose/Water 1 100ml.bag @ 100 mls/hr IVPB Q1H [facility] Rx#: [id number] Piperacillin-Tazobactam 3 50 .375 gm In Dextrose/Water 1 50ml.bag @ 12.5 mls/hr IVPB Q8HR [facility] Rx#: [id number] Potassium Chloride 20 meq 200 In Water For Injection 1 100ml.bag @ 50 mls/hr IVPB Q2HR [facility] Rx#: [id number] Intake, IV Titration 141.867 316.66 Amount Heparin Sod,Pork in 0.45% 141.867 278.86 NaCl 25,000 unit In 0.45 % NaCl 1 500ml.bag @ 11.6 UNITS/KG/HR 19.99 mls/hr IV .Q24H [facility] Rx#: [id number] Nitroglycerin-D5w Pmx 50 37.8 mg In Dextrose/Water 1 250ml.bag @ 5 MCG/MIN 1.5 mls/hr IV .Q24H [facility] Rx#: [id number] Output: Urine 880 865 210 Uretheral (Araujo) 350 Other: Voiding Method Indwelling Catheter Indwelling Catheter Indwelling Catheter # Voids 1 # Bowel Movements 0 - Constitutional General appearance: Present: mild distress - Respiratory Respiratory: bilateral: rales - Cardiovascular Heart sounds: normal: S1, S2 Abnormal Heart Sounds: Present: systolic murmur - Labs CBC & Chem 7: 07/07/18 04:33 07/07/18 04:33 Labs: Abnormal Lab Results - Last 24 Hours (Table) 07/06/18 07/06/18 07/06/18 Range/Units 11:38 12:17 15:27 RBC 2.28 L (4.30-5.90) m/uL Hgb 8.5 L (13.0-17.5) gm/dL Hct 26.1 L (39.0-53.0) % MCV 114.6 H (80.0-100.0) fL MCH 37.1 H (25.0-35.0) pg Lymphocytes # 0.5 L (1.0-4.8) k/uL APTT (22.0-30.0) sec ABG pCO2 (35-45) mmHg ABG pO2 (83-108) mmHg ABG HCO3 (21-25) mmol/L ABG O2 Saturation (94-97) % Chloride (98-107) mmol/L Carbon Dioxide (22-30) mmol/L BUN (9-20) mg/dL Creatinine (0.66-1.25) mg/dL Glucose (74-99) mg/dL POC Glucose (mg/dL) 117 H 172 H (75-99) mg/dL Calcium (8.4-10.2) mg/dL Phosphorus (2.5-4.5) mg/dL Troponin I (0.000-0.034) ng/mL Total Protein (6.3-8.2) g/dL Albumin (3.5-5.0) g/dL Urine Protein (Negative) 07/06/18 07/06/18 07/06/18 Range/Units 15:30 15:55 18:07 RBC (4.30-5.90) m/uL Hgb (13.0-17.5) gm/dL Hct (39.0-53.0) % MCV (80.0-100.0) fL MCH (25.0-35.0) pg Lymphocytes # (1.0-4.8) k/uL APTT (22.0-30.0) sec ABG pCO2 33 L (35-45) mmHg ABG pO2 148 H (83-108) mmHg ABG HCO3 20 L (21-25) mmol/L ABG O2 Saturation 99.6 H (94-97) % Chloride (98-107) mmol/L Carbon Dioxide (22-30) mmol/L BUN (9-20) mg/dL Creatinine (0.66-1.25) mg/dL Glucose (74-99) mg/dL POC Glucose (mg/dL) 133 H (75-99) mg/dL Calcium (8.4-10.2) mg/dL Phosphorus (2.5-4.5) mg/dL Troponin I (0.000-0.034) ng/mL Total Protein (6.3-8.2) g/dL Albumin (3.5-5.0) g/dL Urine Protein Trace H (Negative) 07/06/18 07/07/18 07/07/18 Range/Units 20:56 04:33 04:33 RBC 2.27 L (4.30-5.90) m/uL Hgb 8.5 L (13.0-17.5) gm/dL Hct 26.6 L (39.0-53.0) % MCV 117.6 H (80.0-100.0) fL MCH 37.4 H (25.0-35.0) pg Lymphocytes # 0.5 L (1.0-4.8) k/uL APTT 52.0 H (22.0-30.0) sec ABG pCO2 (35-45) mmHg ABG pO2 (83-108) mmHg ABG HCO3 (21-25) mmol/L ABG O2 Saturation (94-97) % Chloride (98-107) mmol/L Carbon Dioxide (22-30) mmol/L BUN (9-20) mg/dL Creatinine (0.66-1.25) mg/dL Glucose (74-99) mg/dL POC Glucose (mg/dL) 123 H (75-99) mg/dL Calcium (8.4-10.2) mg/dL Phosphorus (2.5-4.5) mg/dL Troponin I (0.000-0.034) ng/mL Total Protein (6.3-8.2) g/dL Albumin (3.5-5.0) g/dL Urine Protein (Negative) 07/07/18 07/07/18 07/07/18 Range/Units 04:33 04:33 06:36 RBC (4.30-5.90) m/uL Hgb (13.0-17.5) gm/dL Hct (39.0-53.0) % MCV (80.0-100.0) fL MCH (25.0-35.0) pg Lymphocytes # (1.0-4.8) k/uL APTT (22.0-30.0) sec ABG pCO2 (35-45) mmHg ABG pO2 (83-108) mmHg ABG HCO3 (21-25) mmol/L ABG O2 Saturation (94-97) % Chloride 111 H (98-107) mmol/L Carbon Dioxide 21 L (22-30) mmol/L BUN 36 H (9-20) mg/dL Creatinine 2.30 H (0.66-1.25) mg/dL Glucose 158 H (74-99) mg/dL POC Glucose (mg/dL) 177 H (75-99) mg/dL Calcium 10.4 H (8.4-10.2) mg/dL Phosphorus 2.4 L (2.5-4.5) mg/dL Troponin I 6.810 H* (0.000-0.034) ng/mL Total Protein 5.4 L (6.3-8.2) g/dL Albumin 2.9 L (3.5-5.0) g/dL Urine Protein (Negative) Assessment and Plan Assessment: Assessment #1 acute non-ST deviation myocardial infarction #2 congestive heart failure exacerbation secondary to diastolic dysfunction #3 severe underlying coronary artery disease and status post stenting and CABG #4 status post aortic valve replacement #5 chronic kidney disease #6 multiple comorbid conditions Plan #1 continue the current medical regimen including dual antiplatelet therapy along with high intensity statin #2 continue Lasix IV. #3 continue monitoring the kidney function and electrolytes #4 DC the heparin by tomorrow #5 DC IV nitrates and start the patient on oral nitrate tomorrow as well.
[2018-07-07 12:15] LABS: Glucose,Whole Blood 140 mg/dL (75-99)
--- NOTE | 2018-07-07 14:02 | P.PN ---
Subjective Progress Note Date: 07/07/18 67-year-old male patient who came into the ICU with acute hypoxic respiratory failure. The patient was found to be profoundly hypoxic on the telemetry unit and the patient was placed on a high flow oxygen and subsequently he is placed on a BiPAP at a pressure of 12/5 cm of water and FiO2 of 100% and he got moved to the intensive care unit. The patient is known to have coronary artery disease. He underwent coronary artery bypass surgery back in 2016 and he underwent four-vessel bypass surgery that was done by Dr. Nathan Moeller. Patient underwent SANTOS to LAD saphenous vein graft to OM 1 OM 2 and distal RCA. Subsequently also underwent aortic TAVR. The patient is also known to have multiple medical problems including previous history of CVA and residual left- sided weakness, diabetes mellitus, hypertension and hyperlipidemia and is a chronic smoker continues to smoke cigarettes. Over the past 3 days the patient was having some altered mentation. He was on and off found by family members to be confused. Subsequently he started having intermittent chest pain. Apparently was having symptoms of heartburn and he was over utilizing Tums and he was taking Tums tablet up to 10 tablets on a daily basis. He was not getting much relief. He came into the hospital and in the ED the patient was found to have a BP of 190/80 with a pulse ox of 98% on 2 L and a heart rate of 120 irregular consistent with atrial fibrillation and rapid ventricular response. The patient also had EKG changes with some nonspecific ST/ST segment abnormalities and depression in the lateral leads. [id number] in for acute non-ST segment elevation myocardial infarction and troponin peaked at 27. The patient also developed an acute kidney injury. His calcium level was at 14. He was started on IV heparin. He was also started on nitroglycerin drip for blood pressure control. He is current rhythm is sinus bradycardia with occasional brief junctional rhythms. The patient is free of any chest pain. His mental status is still altered yet the patient is not agitated. He is following simple commands. Moving all 4 extremities with some known left- sided weakness compared to the right because of previous CVA. His chest x-ray was essentially within normal limits at the time of admission and subsequently developed at the pulmonary infiltrates consistent with acute pulmonary edema. Echo of the heart showed a preserved LV function without any significant valvular abnormalities. A Araujo catheter was inserted and immediately fell and 350 mL of urine output was obtained. The patient was also started on IV Lasix and currently receiving Lasix 40 mg IV push every 12 hours. Pulses are palpable in lower extremities bilaterally. Abdomen is at the bedside and I did ask discussion with the patient's daughter and the . They told me that the patient did not want any intubation mechanical ventilation. BiPAP was okay by them. Per family's wishes the patient is a DNR/DNI CODE STATUS. Note that the patient also has history of prostate cancer yet this is localized and nonmetastatic at this stage and the hypercalcemia is unlikely to be related to his prostate cancer. On today's evaluation of 07/07/2018, the patient is much more comfortable and less shortness of breath compared to yesterday. He was taken off the BiPAP earlier this morning and currently is on 6 L of oxygen by nasal cannula. He did diuresed with IV Lasix and the patient's chest x-ray shows improvement in the volume status although there is some underlying ongoing pulmonary edema. He is free of any chest pain. He remains on IV heparin. He remains on IV nitroglycerin. Blood pressure is still somewhat elevated. His sinus mechanism still present. He is somewhat bradycardic with a heart rate in the mid 50s. No chest pain. Troponin is been dropping down and downtrending. No fever. No chills. No altered mentation and is following commands and answering questions. He is demonstrating significant motor weakness both in upper and lower extremities. Today's creatinine is at 2.3. Troponin is downtrending is down to 6.8. Objective - Vital Signs Vital signs: Vital Signs Temp 98.4 F 07/07/18 12:00 Pulse 53 L 07/07/18 12:00 Resp 20 07/07/18 12:00 BP 158/58 07/07/18 12:00 Pulse Ox 97 07/07/18 12:00 Intake & Output 07/06/18 07/07/18 07/07/18 18:59 06:59 18:59 Intake Total 141.867 776.66 30 Output Total 880 865 425 Balance -738.133 -88.34 -395 Weight 83.4 kg Intake: IV 460 30 .9 110 30 Magnesium Sulfate-D5w Pmx 100 1 gm In Dextrose/Water 1 100ml.bag @ 100 mls/hr IVPB Q1H [facility] Rx#: [id number] Piperacillin-Tazobactam 3 50 .375 gm In Dextrose/Water 1 50ml.bag @ 12.5 mls/hr IVPB Q8HR [facility] Rx#: [id number] Potassium Chloride 20 meq 200 In Water For Injection 1 100ml.bag @ 50 mls/hr IVPB Q2HR [facility] Rx#: [id number] Intake, IV Titration 141.867 316.66 Amount Heparin Sod,Pork in 0.45% 141.867 278.86 NaCl 25,000 unit In 0.45 % NaCl 1 500ml.bag @ 11.6 UNITS/KG/HR 19.99 mls/hr IV .Q24H [facility] Rx#: [id number] Nitroglycerin-D5w Pmx 50 37.8 mg In Dextrose/Water 1 250ml.bag @ 5 MCG/MIN 1.5 mls/hr IV .Q24H [facility] Rx#: [id number] Output: Urine 880 865 425 Uretheral (Araujo) 350 Other: Voiding Method Indwelling Catheter Indwelling Catheter Indwelling Catheter # Voids 1 # Bowel Movements 0 - Exam Gen. appearance the patient is a mild degree of respirator distress. He is following some simple commands. He opens his eyes spontaneously. He is tolerating oxygen 6 L per minute nasal cannula Head exam was generally normal. There was no scleral icterus or corneal arcus. Mucous membranes were moist. Neck was supple and without jugular venous distension, thyromegaly, or carotid bruits. Carotids were easily palpable bilaterally. There was no adenopathy. Lungs sounds are diminished bilaterally and there is crackles in the mid in the lower lung alvarez and some few scattered expiratory wheeze. Heart sounds are regular, somewhat bradycardic, so no significant murmurs appreciated. No right ventricular heave or thrill. Abdominal exam revealed normal bowel sounds. The abdomen was soft, non-tender, and without masses, organomegaly, or appreciable enlargement of the abdominal aorta. Examination of the extremities revealed easily palpable radial, femoral and pedal pulses. There was no cyanosis, clubbing or edema. Examination of the skin revealed no evidence of significant rashes, suspicious appearing nevi or other concerning lesions. Neurologically, follows some simple commands. - Labs CBC & Chem 7: 07/07/18 04:33 07/07/18 04:33 Labs: Abnormal Lab Results - Last 24 Hours (Table) 07/06/18 07/06/18 07/06/18 Range/Units 15:27 15:30 15:55 RBC (4.30-5.90) m/uL Hgb (13.0-17.5) gm/dL Hct (39.0-53.0) % MCV (80.0-100.0) fL MCH (25.0-35.0) pg Lymphocytes # (1.0-4.8) k/uL APTT (22.0-30.0) sec ABG pCO2 33 L (35-45) mmHg ABG pO2 148 H (83-108) mmHg ABG HCO3 20 L (21-25) mmol/L ABG O2 Saturation 99.6 H (94-97) % Chloride (98-107) mmol/L Carbon Dioxide (22-30) mmol/L BUN (9-20) mg/dL Creatinine (0.66-1.25) mg/dL Glucose (74-99) mg/dL POC Glucose (mg/dL) 172 H (75-99) mg/dL Calcium (8.4-10.2) mg/dL Phosphorus (2.5-4.5) mg/dL Troponin I (0.000-0.034) ng/mL Total Protein (6.3-8.2) g/dL Albumin (3.5-5.0) g/dL Urine Protein Trace H (Negative) 07/06/18 07/06/18 07/07/18 Range/Units 18:07 20:56 04:33 RBC 2.27 L (4.30-5.90) m/uL Hgb 8.5 L (13.0-17.5) gm/dL Hct 26.6 L (39.0-53.0) % MCV 117.6 H (80.0-100.0) fL MCH 37.4 H (25.0-35.0) pg Lymphocytes # 0.5 L (1.0-4.8) k/uL APTT (22.0-30.0) sec ABG pCO2 (35-45) mmHg ABG pO2 (83-108) mmHg ABG HCO3 (21-25) mmol/L ABG O2 Saturation (94-97) % Chloride (98-107) mmol/L Carbon Dioxide (22-30) mmol/L BUN (9-20) mg/dL Creatinine (0.66-1.25) mg/dL Glucose (74-99) mg/dL POC Glucose (mg/dL) 133 H 123 H (75-99) mg/dL Calcium (8.4-10.2) mg/dL Phosphorus (2.5-4.5) mg/dL Troponin I (0.000-0.034) ng/mL Total Protein (6.3-8.2) g/dL Albumin (3.5-5.0) g/dL Urine Protein (Negative) 07/07/18 07/07/18 07/07/18 Range/Units 04:33 04:33 04:33 RBC (4.30-5.90) m/uL Hgb (13.0-17.5) gm/dL Hct (39.0-53.0) % MCV (80.0-100.0) fL MCH (25.0-35.0) pg Lymphocytes # (1.0-4.8) k/uL APTT 52.0 H (22.0-30.0) sec ABG pCO2 (35-45) mmHg ABG pO2 (83-108) mmHg ABG HCO3 (21-25) mmol/L ABG O2 Saturation (94-97) % Chloride 111 H (98-107) mmol/L Carbon Dioxide 21 L (22-30) mmol/L BUN 36 H (9-20) mg/dL Creatinine 2.30 H (0.66-1.25) mg/dL Glucose 158 H (74-99) mg/dL POC Glucose (mg/dL) (75-99) mg/dL Calcium 10.4 H (8.4-10.2) mg/dL Phosphorus 2.4 L (2.5-4.5) mg/dL Troponin I 6.810 H* (0.000-0.034) ng/mL Total Protein 5.4 L (6.3-8.2) g/dL Albumin 2.9 L (3.5-5.0) g/dL Urine Protein (Negative) 07/07/18 07/07/18 Range/Units 06:36 12:12 RBC (4.30-5.90) m/uL Hgb (13.0-17.5) gm/dL Hct (39.0-53.0) % MCV (80.0-100.0) fL MCH (25.0-35.0) pg Lymphocytes # (1.0-4.8) k/uL APTT (22.0-30.0) sec ABG pCO2 (35-45) mmHg ABG pO2 (83-108) mmHg ABG HCO3 (21-25) mmol/L ABG O2 Saturation (94-97) % Chloride (98-107) mmol/L Carbon Dioxide (22-30) mmol/L BUN (9-20) mg/dL Creatinine (0.66-1.25) mg/dL Glucose (74-99) mg/dL POC Glucose (mg/dL) 177 H 140 H (75-99) mg/dL Calcium (8.4-10.2) mg/dL Phosphorus (2.5-4.5) mg/dL Troponin I (0.000-0.034) ng/mL Total Protein (6.3-8.2) g/dL Albumin (3.5-5.0) g/dL Urine Protein (Negative) Assessment and Plan Plan: Assessment 1 acute hypoxic history failure, the patient was BiPAP dependent and currently is on 6 L of oxygen by nasal cannula. The patient has responded nicely with diuretics with IV Lasix. The patient is less SOB and the chest x-ray shows improvement in aeration , although there is still some residual pulmonary edema. 2 coronary artery disease with previous four-vessel bypass surgery 3 acute non-ST segment elevation myocardial infarction with secondary chest pain 4 acute kidney injury, improving the creatinine is down to 2.4 5 acute hypercalcemia likely to excessive intake of Tums on outpatient basis, improving and the calcium level is down trending 6 previous history aortic valve replacement TAVR 7 atrial fibrillation of a new onset, converted into normal sinus rhythm, currently in sinus bradycardia with occasional junctional mechanism 8 previous history of CVA 9 diabetes mellitus 10 diabetic peripheral neuropathy 11 peripheral vascular disease 12 hematologic disorder maintained on Hydrea on outpatient basis exact type is not known to me at this point 13 history of chronic iron deficiency anemia 14 prostate cancer 15 hypothyroidism 16 DNR/DNI CODE STATUS Plan Increase the Lasix up to 40 mg IV every 12 hours. Repeat chest x-ray in the morning. Wean FiO2. Monitor renal function. Continue IV heparin. Continue nitroglycerin drip for blood pressure control. IV hydralazine 10 mg every 4 hours should the systolic blood pressure come above 160. Add 10 mg of Norvasc for tighter blood pressure control. Keep in the ICU for another 24 hours.
[2018-07-07 16:57] LABS: Glucose,Whole Blood 128 mg/dL (75-99)
[2018-07-07 20:44] LABS: Glucose,Whole Blood 133 mg/dL (75-99)
[2018-07-07] MEDS: VENLAFAXINE HCL ER 75 MG CAP PO SCH (20:50)
[2018-07-07] MEDS: NITROGLYCERIN-D5W PMX 50 MG in DEXTROSE/WATER 1 250ML.BAG IV SCH (20:51)
[2018-07-07] MEDS: HEPARIN SOD,PORK IN 0.45% NACL 25,000 UNIT in 0.45% NACL 1 500ML.BAG IV SCH (20:52)
[2018-07-07] MEDS: ATORVASTATIN 80 MG TAB PO SCH (20:53)
--- NOTE | 2018-07-07 23:38 | P.PN ---
Subjective Progress Note Date: 07/07/18 Progress note being dictated for Dr. Camacho> interval history:this is a 67-year-old gentleman admitted with acute non-STEMI, acute hypoxic respiratory failure, CHF exacerbation, possible pneumonia,acute renal failure and multiple other medical issues.Evaluated by cardiology and patient currently not a candidate for cardiac catheterization with medical therapy being maximized.telemetry reporting junctional alternating with sinus bradycardia, 40's.respiratory status worsening, requiring high 8 Lflow nasal cannula,more lethargic, diaphoretic.creatinine2.4.maintained on nitroglycerin and heparin drips. Denies chest pain.maintained on Zometa with calcium, improving, 11.3. Review of systems:is significantly short of breath,confused, unable to assess at this time. Active Medications Acetaminophen (Tylenol Tab) 650 mg PO Q6HR PRN PRN Reason: Mild Pain or Fever > 100.5 Hydrocodone Bitart/Acetaminophen ([place] 5-325) 1 each PO Q6HR PRN PRN Reason: Pain Alprazolam (Xanax) 0.25 mg PO TID PRN PRN Reason: Anxiety Amlodipine Besylate (Norvasc) 10 mg PO DAILY [facility] Last Admin: 07/06/18 08:39 Dose: 10 mg Aspirin (Aspirin) 81 mg PO DAILY [facility] Atorvastatin Calcium (Lipitor) 80 mg PO HS [facility] Clopidogrel Bisulfate (Plavix) 75 mg PO DAILY [facility] Last Admin: 07/06/18 08:39 Dose: 75 mg Ferrous Sulfate (Feosol) 325 mg PO DAILY [facility] Last Admin: 07/06/18 08:30 Dose: Not Given Furosemide (Lasix) 20 mg IV Q12HR [facility] Last Admin: 07/06/18 11:54 Dose: 20 mg Heparin Sodium (Porcine) (Heparin) 0 unit IV PER PROTOCOL PRN; Protocol PRN Reason: Low PTT Last Admin: 07/05/18 17:14 Dose: 4,000 unit Heparin Sodium/Sodium Chloride (25,000 unit/ Sodium Chloride) 500 mls @ 19.99 mls/hr IV .Q24H [facility]; Protocol Last Titration: 07/06/18 07:01 Dose: 13 units/kg/hr, 22.4 mls/hr Nitroglycerin/Dextrose 50 mg/ (IV Solution) 250 mls @ 1.5 mls/hr IV .Q24H [facility]; Protocol Last Admin: 07/05/18 21:38 Dose: 5 mcg/min, 1.5 mls/hr Insulin Aspart (Novolog) 0 unit SQ ACHS [facility]; Protocol Last Admin: 07/06/18 16:39 Dose: Not Given Insulin Detemir (Levemir) 35 unit SQ DAILY [facility] Last Admin: 07/06/18 08:41 Dose: Not Given Levothyroxine Sodium (Synthroid) 125 mcg PO DAILY@0630 [facility] Last Admin: 07/06/18 06:26 Dose: Not Given Metoprolol Tartrate (Lopressor) 50 mg PO BID [facility] Last Admin: 07/06/18 08:46 Dose: Not Given Morphine Sulfate (Morphine Oral Sihkha 2mg/Ml) 12 mg PO Q4HR PRN PRN Reason: Severe Pain Naloxone HCl (Narcan) 0.2 mg IV Q2M PRN PRN Reason: Opioid Reversal Pantoprazole Sodium (Protonix) 40 mg PO AC-BRKFST [facility] Last Admin: 07/06/18 06:26 Dose: Not Given Prednisolone Acetate (Pred Forte 1%) 1 drops RIGHT EYE Q4HR [facility] Last Admin: 07/06/18 13:05 Dose: Not Given Pregabalin (Lyrica) 200 mg PO BID [facility] Last Admin: 07/06/18 11:54 Dose: Not Given Venlafaxine HCl (Effexor Xr) 75 mg PO HS [facility] Last Admin: 07/05/18 19:59 Dose: 75 mg 07/07/2018 transferred yesterday to ICU. Required BiPAP throughout the night. Currently maintaining O2 sats in the low 90s on high flow 6 L nasal cannula. Diuresing well on Lasix IV push with 24-hour I&O reflecting a negative fluid balance. creatinine 2.3. Maintained on heparin and nitroglycerin drips. Weaning of nitroglycerin drip in progress. Tmx 100.4.chest x-ray reporting improvementin time status, pulmonary edema.telemetry sinus bradycardia.troponin trending down. Review of systems: CONSTITUTIONAL: fatigued,fevers, confusion. HEENT: No recent visual problems or hearing problems. Denied any sore throat. CARDIOVASCULAR: No chest pain, no palpitations, no syncope. PULMONARY: Positive shortness of breath, no cough, no hemoptysis. GASTROINTESTINAL: No diarrhea, no nausea, no vomiting, no abdominal pain. Normoactive bowel sounds. NEUROLOGICAL: No headaches, generalized weakness, no numbness. HEMATOLOGICAL: Denies any bleeding or petechiae. GENITOURINARY: Denies any burning micturition, frequency, or urgency. MUSCULOSKELETAL/RHEUMATOLOGICAL: Denies any joint pain, swelling, or any muscle pain. ENDOCRINE: Denies any polyuria or polydipsia. PSYCHIATRIC: No anxiety, no depression The rest of the 14 point review of systems is negative Active Medications Acetaminophen (Tylenol Tab) 650 mg PO Q6HR PRN PRN Reason: Mild Pain or Fever > 100.5 Hydrocodone Bitart/Acetaminophen ([place] 5-325) 1 each PO Q6HR PRN PRN Reason: Pain Alprazolam (Xanax) 0.25 mg PO TID PRN PRN Reason: Anxiety Amlodipine Besylate (Norvasc) 10 mg PO DAILY [facility] Last Admin: 07/07/18 08:21 Dose: 10 mg Aspirin (Aspirin) 81 mg PO DAILY [facility] Last Admin: 07/07/18 08:21 Dose: 81 mg Atorvastatin Calcium (Lipitor) 80 mg PO HS [facility] Last Admin: 07/07/18 20:53 Dose: 80 mg Clopidogrel Bisulfate (Plavix) 75 mg PO DAILY [facility] Last Admin: 07/07/18 08:21 Dose: 75 mg Ferrous Sulfate (Feosol) 325 mg PO DAILY [facility] Last Admin: 07/07/18 08:20 Dose: 325 mg Furosemide (Lasix) 40 mg IV Q12HR [facility] Last Admin: 07/07/18 20:50 Dose: 40 mg Heparin Sodium (Porcine) (Heparin) 0 unit IV PER PROTOCOL PRN; Protocol PRN Reason: Low PTT Last Admin: 07/05/18 17:14 Dose: 4,000 unit Hydralazine HCl (Apresoline) 10 mg IVP Q4HR PRN PRN Reason: Blood Pressure - High Last Admin: 07/07/18 02:12 Dose: 10 mg Heparin Sodium/Sodium Chloride (25,000 unit/ Sodium Chloride) 500 mls @ 19.99 mls/hr IV .Q24H [facility]; Protocol Last Admin: 07/07/18 20:52 Dose: 13 units/kg/hr, 22.4 mls/hr Nitroglycerin/Dextrose 50 mg/ (IV Solution) 250 mls @ 1.5 mls/hr IV .Q24H [facility]; Protocol Last Admin: 07/07/18 20:51 Dose: 5 mcg/min, 1.5 mls/hr Piperacillin/Tazobactam/ (Dextrose 3.375 gm/ IV Solution) 50 mls @ 12.5 mls/hr IVPB Q8HR [facility] Last Admin: 07/07/18 16:42 Dose: 12.5 mls/hr Insulin Aspart (Novolog) 0 unit SQ ACHS [facility]; Protocol Last Admin: 07/07/18 20:50 Dose: 1 unit Insulin Detemir (Levemir) 35 unit SQ DAILY [facility] Last Admin: 07/07/18 08:22 Dose: 35 unit Levothyroxine Sodium (Synthroid) 125 mcg PO DAILY@0630 [facility] Last Admin: 07/07/18 06:34 Dose: 125 mcg Metoprolol Tartrate (Lopressor) 50 mg PO BID [facility] Last Admin: 07/07/18 20:50 Dose: 50 mg Miscellaneous Information (Magnesium Per Protocol) 1 each MISCELLANE DAILY PRN ; Protocol PRN Reason: Per Protocol Miscellaneous Information (Potassium Per Protocol) 1 each MISCELLANE DAILY PRN ; Protocol PRN Reason: Per Protocol Morphine Sulfate (Morphine Oral Shikha 2mg/Ml) 12 mg PO Q4HR PRN PRN Reason: Severe Pain Morphine Sulfate (Morphine Sulfate (Inj)) 2 mg IVP Q4H PRN PRN Reason: Pain/Discomfort Last Admin: 07/06/18 18:34 Dose: 2 mg Naloxone HCl (Narcan) 0.2 mg IV Q2M PRN PRN Reason: Opioid Reversal Pantoprazole Sodium (Protonix) 40 mg PO AC-BRKFST [facility] Last Admin: 07/07/18 08:20 Dose: 40 mg Pregabalin (Lyrica) 200 mg PO BID [facility] Last Admin: 07/07/18 20:49 Dose: 200 mg Venlafaxine HCl (Effexor Xr) 75 mg PO HS [facility] Last Admin: 07/07/18 20:50 Dose: 75 mg Objective - Vital Signs Vital signs: Vital Signs Temp 98.7 F 07/07/18 20:00 Pulse 62 07/07/18 22:00 Resp 19 07/07/18 22:00 BP 150/64 07/07/18 22:00 Pulse Ox 98 08/24/18 22:00 Intake & Output 07/07/18 07/07/18 07/08/18 06:59 18:59 06:59 Intake Total 776.66 90 553.025 Output Total 865 831 400 Balance -88.34 -741 153.025 Weight 83.4 kg Intake: IV 460 90 20 .9 110 90 20 Magnesium Sulfate-D5w Pmx 100 1 gm In Dextrose/Water 1 100ml.bag @ 100 mls/hr IVPB Q1H [facility] Rx#: [id number] Piperacillin-Tazobactam 3 50 .375 gm In Dextrose/Water 1 50ml.bag @ 12.5 mls/hr IVPB Q8HR [facility] Rx#: [id number] Potassium Chloride 20 meq 200 In Water For Injection 1 100ml.bag @ 50 mls/hr IVPB Q2HR [facility] Rx#: [id number] Intake, IV Titration 316.66 533.025 Amount Heparin Sod,Pork in 0.45% 278.86 500 NaCl 25,000 unit In 0.45 % NaCl 1 500ml.bag @ 11.6 UNITS/KG/HR 19.99 mls/hr IV .Q24H [facility] Rx#: [id number] Nitroglycerin-D5w Pmx 50 37.8 33.025 mg In Dextrose/Water 1 250ml.bag @ 5 MCG/MIN 1.5 mls/hr IV .Q24H [facility] Rx#: [id number] Output: Urine 865 831 400 Other: Voiding Method Indwelling Catheter Indwelling Catheter Indwelling Catheter - Exam PHYSICAL EXAM: VITAL SIGNS: [as above] GENERAL: sitting up in bed, alert,respiratory effort increased, lethargic, confused HEENT: Conjunctivae normal. eyes normal.oral mucosa dry NECK: positive JVD. No thyroid enlargement. No LNs CARDIOVASCULAR: S1, S2 muffled. bradycardic,systolic murmur RESPIRATION: Breath sounds diminished in the bases. scattered rhonchi and crackles throughout,fine expiratory wheeze ABDOMEN: Soft, nontender . No guarding. no masses palpable. Bowel sounds heard. LEGS: positive edema PSYCHIATRY: Alert and oriented -2, plesantly confused NERVOUS SYSTEM: Diffuse weaknessof all extremities, follows simple commands, No focal deficits. - Labs CBC & Chem 7: 07/07/18 04:33 07/07/18 04:33 Labs: Abnormal Lab Results - Last 24 Hours (Table) 07/07/18 07/07/18 07/07/18 Range/Units 04:33 04:33 04:33 RBC 2.27 L (4.30-5.90) m/uL Hgb 8.5 L (13.0-17.5) gm/dL Hct 26.6 L (39.0-53.0) % MCV 117.6 H (80.0-100.0) fL MCH 37.4 H (25.0-35.0) pg Lymphocytes # 0.5 L (1.0-4.8) k/uL APTT 52.0 H (22.0-30.0) sec Chloride 111 H (98-107) mmol/L Carbon Dioxide 21 L (22-30) mmol/L BUN 36 H (9-20) mg/dL Creatinine 2.30 H (0.66-1.25) mg/dL Glucose 158 H (74-99) mg/dL POC Glucose (mg/dL) (75-99) mg/dL Calcium 10.4 H (8.4-10.2) mg/dL Phosphorus 2.4 L (2.5-4.5) mg/dL Troponin I (0.000-0.034) ng/mL Total Protein 5.4 L (6.3-8.2) g/dL Albumin 2.9 L (3.5-5.0) g/dL 07/07/18 07/07/18 07/07/18 Range/Units 04:33 06:36 12:12 RBC (4.30-5.90) m/uL Hgb (13.0-17.5) gm/dL Hct (39.0-53.0) % MCV (80.0-100.0) fL MCH (25.0-35.0) pg Lymphocytes # (1.0-4.8) k/uL APTT (22.0-30.0) sec Chloride (98-107) mmol/L Carbon Dioxide (22-30) mmol/L BUN (9-20) mg/dL Creatinine (0.66-1.25) mg/dL Glucose (74-99) mg/dL POC Glucose (mg/dL) 177 H 140 H (75-99) mg/dL Calcium (8.4-10.2) mg/dL Phosphorus (2.5-4.5) mg/dL Troponin I 6.810 H* (0.000-0.034) ng/mL Total Protein (6.3-8.2) g/dL Albumin (3.5-5.0) g/dL 07/07/18 07/07/18 Range/Units 16:52 20:41 RBC (4.30-5.90) m/uL Hgb (13.0-17.5) gm/dL Hct (39.0-53.0) % MCV (80.0-100.0) fL MCH (25.0-35.0) pg Lymphocytes # (1.0-4.8) k/uL APTT (22.0-30.0) sec Chloride (98-107) mmol/L Carbon Dioxide (22-30) mmol/L BUN (9-20) mg/dL Creatinine (0.66-1.25) mg/dL Glucose (74-99) mg/dL POC Glucose (mg/dL) 128 H 133 H (75-99) mg/dL Calcium (8.4-10.2) mg/dL Phosphorus (2.5-4.5) mg/dL Troponin I (0.000-0.034) ng/mL Total Protein (6.3-8.2) g/dL Albumin (3.5-5.0) g/dL Assessment and Plan Assessment: 1. acute non-STEMI 2.atrial fibrillation with RVR 3. Acute hypoxic respiratory failure secondary to acute CHF exacerbation, diastolic dysfunction, EF 55-60%possibly pneumonia, currently on high flow nasal cannula, prn BIPAP 4. Hypercalcemia 5. anemia of chronic disease,iron deficient 6. Acute renal failure, possibly prerenal, acute tubular necrosis secondary to hypercalcemia 7. DM II6 diabetes mellitus type 2 8. CAD, history of TAVR,CABG - both in 2016 9. History of CVA, TIA 10. History of nicotine dependence 11. Hypertension 12. Mild to moderate mitral regurgitation plan: Continue on current medication regime ,monitoring and symptomatic treatment.Dual antiplatelet therapy. weaning of NTG drip as per cardiology.Lasix increased.weaning of FiO2 in progress as per pulmonary. close monitoring of renal function, electrolytes-Calcium with repeat labs ordered for a.m.follow closely with multiple consults.prognosis guarded given multiple complex medical issues. The impression and plan of care has been dictated as directed. : I performed a history and examination of this patient, discussed the same with the dictator. I agree with the dictator's note ,documented as a scribe. Any additional findings or plans will be noted.
[2018-07-08] MEDS: PIPERACILLIN-TAZOBACTAM 3.375 GM in DEXTROSE/WATER 1 50ML.BAG IVPB SCH ×3 (00:27→16:29)
[2018-07-08 05:03] LABS: Basophils % (A) 0 %; Eosinophils # (A) 0.2 k/uL (0-0.7); Eosinophils % (A) 3 %; HCT 27.3 % (39.0-53.0); HGB 8.9 gm/dL (13.0-17.5); Lymphocytes # (A) 0.6 k/uL (1.0-4.8); Lymphocytes % (A) 11 %; MCH 38.1 pg (25.0-35.0); MCHC 32.5 g/dL (31.0-37.0); MCV 117.3 fL (80.0-100.0); Macrocytosis Marked; Mean Platelet Volume 6.6; Monocytes # (A) 0.3 k/uL (0-1.0); Monocytes % (A) 5 %; Neutrophils % (A) 78 %; Platelet Count 355 k/uL (150-450); RBC 2.33 m/uL (4.30-5.90); WBC 5.1 k/uL (3.8-10.6)
[2018-07-08 05:18] LABS: INR 1.1 (<1.2); Partial Thromboplastin Time 40.1 sec (22.0-30.0); Prothrombin Time 10.3 sec (9.0-12.0)
[2018-07-08 05:24] LABS: Calcium 9.3 mg/dL (8.4-10.2); Magnesium 2.1 mg/dL (1.6-2.3); Phosphorus 2.4 mg/dL (2.5-4.5); Potassium 3.4 mmol/L (3.5-5.1); Total Bilirubin 0.5 mg/dL (0.2-1.3); Total Protein 5.6 g/dL (6.3-8.2)
[2018-07-08] MEDS ORDERED: Potassium Replacement Protocol 1 EACH MISC MISCELLANE PRN (05:37)
[2018-07-08] MEDS: POTASSIUM CHLORIDE ER 20 MEQ TAB.ER PO SCH ×2 (06:41→08:04)
[2018-07-08] MEDS: LEVOTHYROXINE 125 MCG TAB PO SCH (06:41)
[2018-07-08] MEDS: HEPARIN SODIUM,PORCINE 5,000 UNIT/ML 1 ML VIAL IV PRN (06:41)
--- NOTE | 2018-07-08 06:52 | XR ---
EXAMINATION TYPE: XR chest 1V DATE OF EXAM: 07/08/2018 HISTORY: shortness of breath. REFERENCE: Previous study dated 07/07/2018. FINDINGS: There has been a midline sternotomy. The heart is enlarged. There is vascular congestion. Interstitial change is mildly improved. There ar e small, bilateral effusions, greater on the left than right. There is right basilar airspace disease either representing atelectasis or pneumonia. IMPRESSION: PERHAPS SLIGHT IMPROVEMENT IN THE DEGREE OF VASCULAR CONGESTION.
[2018-07-08] MEDS: INSULIN ASPART 100 UNIT/ML 1 ML 10 ML VIAL SQ SCH ×4 (07:55→21:35)
[2018-07-08 07:57] LABS: Glucose,Whole Blood 73 mg/dL (75-99)
[2018-07-08] MEDS: METOPROLOL TARTRATE 50 MG TAB PO SCH ×2 (08:04→21:35)
[2018-07-08] MEDS: amLODIPine 10 MG TAB PO SCH (08:04)
[2018-07-08] MEDS: FERROUS SULFATE 325 MG TAB PO SCH (08:04)
[2018-07-08] MEDS: PREGABALIN 100 MG CAP PO SCH ×2 (08:04→21:35)
[2018-07-08] MEDS: ASPIRIN 81 MG PO SCH (08:04)
[2018-07-08] MEDS: CLOPIDOGREL 75 MG TAB PO SCH (08:04)
[2018-07-08] MEDS: PANTOPRAZOLE 40 MG TABLET PO SCH (08:04)
[2018-07-08] MEDS: FUROSEMIDE 10 MG/ML 2 ML VIAL IV SCH ×2 (08:05→21:34)
--- NOTE | 2018-07-08 08:08 | P.PN ---
Subjective Progress Note Date: 07/08/18 Principal diagnosis: This is a 67-year-old male seen in consultation because of hypercalcemia and acute kidney injury, hypercalcemia is from large amounts of Tums he was taking as well as some vitamin D preparation. He came in with chest pain, acute DC, and is currently pain free on nitroglycerin drip, his troponin went up to 30 and he has an acute DC. His admission calcium was 14.4 and creatinine of 2.49. Baseline creatinine is 1.2 with a GFR of 62 and permanent. His calcium is responded to the 2 mg of Zometa and IV fluids with Lasix. IV fluids have been discontinued. Remains on Lasix he remains on BiPAP. No further chest pain. While signs are stable creatinine has not improved yet. He claims he had a good appetite. 0 Objective - Vital Signs Vital signs: Vital Signs Temp 98.5 F 07/08/18 04:00 Pulse 47 L 07/08/18 07:00 Resp 20 07/08/18 07:00 BP 150/85 07/08/18 07:00 Pulse Ox 96 07/08/18 07:00 Intake & Output 07/07/18 07/08/18 07/08/18 18:59 06:59 18:59 Intake Total 90 903.292 Output Total 831 1250 Balance -741 -346.708 Weight 88.8 kg Intake: IV 90 150 .9 90 100 Piperacillin-Tazobactam 3 50 .375 gm In Dextrose/Water 1 50ml.bag @ 12.5 mls/hr IVPB Q8HR [facility] Rx#: [id number] Intake, IV Titration 753.292 Amount Heparin Sod,Pork in 0.45% 720.267 NaCl 25,000 unit In 0.45 % NaCl 1 500ml.bag @ 11.6 UNITS/KG/HR 19.99 mls/hr IV .Q24H [facility] Rx#: [id number] Nitroglycerin-D5w Pmx 50 33.025 mg In Dextrose/Water 1 250ml.bag @ 5 MCG/MIN 1.5 mls/hr IV .Q24H [facility] Rx#: [id number] Output: Urine 831 1250 Other: Voiding Method Indwelling Catheter Indwelling Catheter # Bowel Movements 0 On examination awake alert oriented. HEENT exam no JVP noted neck is supple no facial asymmetry pupils are equal Employer clear to auscultation fairly good air entry bilaterally Heart sounds are unremarkable for any murmur rub gallop On the monitor is showing normal sinus rhythm with multiple PACs. Abdomen soft nontender nondistended Extremity examination was no edema Neurologically awake alert oriented has mild left-sided CVA - Labs CBC & Chem 7: 07/08/18 04:26 07/08/18 04:26 Labs: Abnormal Lab Results - Last 24 Hours (Table) 07/07/18 07/07/18 07/07/18 Range/Units 12:12 16:52 20:41 RBC (4.30-5.90) m/uL Hgb (13.0-17.5) gm/dL Hct (39.0-53.0) % MCV (80.0-100.0) fL MCH (25.0-35.0) pg Lymphocytes # (1.0-4.8) k/uL APTT (22.0-30.0) sec Potassium (3.5-5.1) mmol/L Chloride (98-107) mmol/L Carbon Dioxide (22-30) mmol/L BUN (9-20) mg/dL Creatinine (0.66-1.25) mg/dL Glucose (74-99) mg/dL POC Glucose (mg/dL) 140 H 128 H 133 H (75-99) mg/dL Phosphorus (2.5-4.5) mg/dL Total Protein (6.3-8.2) g/dL Albumin (3.5-5.0) g/dL 07/08/18 07/08/18 07/08/18 Range/Units 04:26 04:26 04:26 RBC 2.33 L (4.30-5.90) m/uL Hgb 8.9 L (13.0-17.5) gm/dL Hct 27.3 L (39.0-53.0) % MCV 117.3 H (80.0-100.0) fL MCH 38.1 H (25.0-35.0) pg Lymphocytes # 0.6 L (1.0-4.8) k/uL APTT 40.1 H (22.0-30.0) sec Potassium 3.4 L (3.5-5.1) mmol/L Chloride 109 H (98-107) mmol/L Carbon Dioxide 21 L (22-30) mmol/L BUN 39 H (9-20) mg/dL Creatinine 2.30 H (0.66-1.25) mg/dL Glucose 73 L (74-99) mg/dL POC Glucose (mg/dL) (75-99) mg/dL Phosphorus 2.4 L (2.5-4.5) mg/dL Total Protein 5.6 L (6.3-8.2) g/dL Albumin 3.0 L (3.5-5.0) g/dL 07/08/18 Range/Units 07:55 RBC (4.30-5.90) m/uL Hgb (13.0-17.5) gm/dL Hct (39.0-53.0) % MCV (80.0-100.0) fL MCH (25.0-35.0) pg Lymphocytes # (1.0-4.8) k/uL APTT (22.0-30.0) sec Potassium (3.5-5.1) mmol/L Chloride (98-107) mmol/L Carbon Dioxide (22-30) mmol/L BUN (9-20) mg/dL Creatinine (0.66-1.25) mg/dL Glucose (74-99) mg/dL POC Glucose (mg/dL) 73 L (75-99) mg/dL Phosphorus (2.5-4.5) mg/dL Total Protein (6.3-8.2) g/dL Albumin (3.5-5.0) g/dL Assessment and Plan Assessment: Impression 1. Acute kidney injury secondary to hypercalcemia. Creatinine is starting to trend down to 2.3 from 2.41. His admission creatinine was 2.49. He might have an element of prerenal from congestive heart failure.. 2. Hypercalcemia secondary to excessive Tums intake, as well as some kind of a vitamin D pill 3 times a week although his not listed on his med list. Calcium is down to 9.3. His off of the IV saline. 3. Admitted with chest pain acute DC troponins 30. Pain-free on nitroglycerin drip. Troponin down to 6.8 as of yesterday 07/07/2018 and has had history of of coronary artery bypass graft with aortic valve replacement on 02/24/2016 at [facility]. 5. Left-sided CVA with residual weakness 6. Anemia, hemoglobin went down from 11.4-8.5 > 8.9 in the hospital for the last 3 days, no obvious GI bleed. Some of it is from hydration and dilution 7. Congestive heart failure, on BiPAP Recommendation. 1. Continue IV Lasix 40 mg every 12, his responded with urine output of 2 L 2. Monitor calcium and renal function 3. Monitor I's and O's strictly. 4. Keep blood pressure around 110 to 1:30 6. Avoid any nephrotoxic medications.
--- NOTE | 2018-07-08 12:28 | P.PN ---
Subjective Progress Note Date: 07/08/18 this is a pleasant 67-year-old, past medical history significant for CAD, extending into thousand 16 and coronary artery bypass grafting, prior TAVR, potentially dyslipidemia and history of CVA. Presented to the hospital with acute non-ST elevation SD, but treated by congestive heart failure exacerbation and acute renal failure. Echocardiogram revealed normal LV function. Patient was recommended be treated medically due to advanced renal failure. He was transferred to ICU due to severe agitation. He has been on IV nitro and IV heparin. On follow-up today, he denies having any complaints of chest discomfort. He does continue to have some shortness of breath however he feels this is better.his IV nitro was discontinued this morning and he was started on by mouth nitrates. Objective - Vital Signs Vital signs: Vital Signs Temp 97.5 F L 07/08/18 08:00 Pulse 55 L 07/08/18 11:00 Resp 17 07/08/18 11:00 BP 105/55 07/08/18 11:00 Pulse Ox 95 07/08/18 11:00 Intake & Output 07/07/18 07/08/18 07/08/18 18:59 06:59 18:59 Intake Total 90 903.292 420 Output Total 831 1250 450 Balance -741 -346.708 -30 Weight 88.8 kg 88.8 kg Intake: IV 90 150 60 .9 90 100 10 Piperacillin-Tazobactam 3 50 50 .375 gm In Dextrose/Water 1 50ml.bag @ 12.5 mls/hr IVPB Q8HR [facility] Rx#: [id number] Intake, IV Titration 753.292 Amount Heparin Sod,Pork in 0.45% 720.267 NaCl 25,000 unit In 0.45 % NaCl 1 500ml.bag @ 11.6 UNITS/KG/HR 19.99 mls/hr IV .Q24H [facility] Rx#: [id number] Nitroglycerin-D5w Pmx 50 33.025 mg In Dextrose/Water 1 250ml.bag @ 5 MCG/MIN 1.5 mls/hr IV .Q24H [facility] Rx#: [id number] Oral 360 Output: Urine 831 1250 450 Other: Voiding Method Indwelling Catheter Indwelling Catheter Indwelling Catheter # Bowel Movements 0 - Exam PHYSICAL EXAMINATION: HEENT: [Head is atraumatic, normocephalic. Pupils equal, round. Neck is supple. There is no elevated jugular venous pressure.] HEART EXAMINATION: [Heart sounds regular, S1 and S2 with a systolic murmur.] CHEST EXAMINATION:[ Lungs reveal crackles bilateral lower lobes. No chest wall tenderness is noted on palpation or with deep breathing.] ABDOMEN: [ Soft, nontender. Bowel sounds are heard. No organomegaly noted]. EXTREMITIES:[ 2+ peripheral pulses with no evidence of peripheral edema and no calf tenderness noted]. NEUROLOGIC [patient is awake, alert and oriented x2.] . - Labs CBC & Chem 7: 07/08/18 04:26 07/08/18 04:26 Labs: Abnormal Lab Results - Last 24 Hours (Table) 07/07/18 07/07/18 07/08/18 Range/Units 16:52 20:41 04:26 RBC 2.33 L (4.30-5.90) m/uL Hgb 8.9 L (13.0-17.5) gm/dL Hct 27.3 L (39.0-53.0) % MCV 117.3 H (80.0-100.0) fL MCH 38.1 H (25.0-35.0) pg Lymphocytes # 0.6 L (1.0-4.8) k/uL APTT (22.0-30.0) sec Potassium (3.5-5.1) mmol/L Chloride (98-107) mmol/L Carbon Dioxide (22-30) mmol/L BUN (9-20) mg/dL Creatinine (0.66-1.25) mg/dL Glucose (74-99) mg/dL POC Glucose (mg/dL) 128 H 133 H (75-99) mg/dL Phosphorus (2.5-4.5) mg/dL Total Protein (6.3-8.2) g/dL Albumin (3.5-5.0) g/dL 07/08/18 07/08/18 07/08/18 Range/Units 04:26 04:26 07:55 RBC (4.30-5.90) m/uL Hgb (13.0-17.5) gm/dL Hct (39.0-53.0) % MCV (80.0-100.0) fL MCH (25.0-35.0) pg Lymphocytes # (1.0-4.8) k/uL APTT 40.1 H (22.0-30.0) sec Potassium 3.4 L (3.5-5.1) mmol/L Chloride 109 H (98-107) mmol/L Carbon Dioxide 21 L (22-30) mmol/L BUN 39 H (9-20) mg/dL Creatinine 2.30 H (0.66-1.25) mg/dL Glucose 73 L (74-99) mg/dL POC Glucose (mg/dL) 73 L (75-99) mg/dL Phosphorus 2.4 L (2.5-4.5) mg/dL Total Protein 5.6 L (6.3-8.2) g/dL Albumin 3.0 L (3.5-5.0) g/dL Assessment and Plan Assessment: #1 acute non-ST elevation SD #2 acute on chronic diastolic congestive heart failure #3 severe underlying CAD, status post stenting and CABG #4 status post TAVR #5 chronic kidney disease #6 hypertension #7 hyperlipidemia Plan: from cardiology's perspective, continue current medications, continue IV Lasix. Continue monitor kidney function and electrolytes as well as intake and output and daily weights. Discontinue IV heparin. We'll continue to follow the patient will write further recommendations accordingly. SURFACING MACHINE OPERATOR note has been reviewed, I agree with a documented findings and plan of care. Patient was seen and examined.
--- NOTE | 2018-07-08 12:28 | P.PN ---
Subjective Progress Note Date: 07/08/18 67-year-old male patient who came into the ICU with acute hypoxic respiratory failure. The patient was found to be profoundly hypoxic on the telemetry unit and the patient was placed on a high flow oxygen and subsequently he is placed on a BiPAP at a pressure of 12/5 cm of water and FiO2 of 100% and he got moved to the intensive care unit. The patient is known to have coronary artery disease. He underwent coronary artery bypass surgery back in 2016 and he underwent four-vessel bypass surgery that was done by Dr. Nathan Moeller. Patient underwent SANTOS to LAD saphenous vein graft to OM 1 OM 2 and distal RCA. Subsequently also underwent aortic TAVR. The patient is also known to have multiple medical problems including previous history of CVA and residual left- sided weakness, diabetes mellitus, hypertension and hyperlipidemia and is a chronic smoker continues to smoke cigarettes. Over the past 3 days the patient was having some altered mentation. He was on and off found by family members to be confused. Subsequently he started having intermittent chest pain. Apparently was having symptoms of heartburn and he was over utilizing Tums and he was taking Tums tablet up to 10 tablets on a daily basis. He was not getting much relief. He came into the hospital and in the ED the patient was found to have a BP of 190/80 with a pulse ox of 98% on 2 L and a heart rate of 120 irregular consistent with atrial fibrillation and rapid ventricular response. The patient also had EKG changes with some nonspecific ST/ST segment abnormalities and depression in the lateral leads. [id number] in for acute non-ST segment elevation myocardial infarction and troponin peaked at 27. The patient also developed an acute kidney injury. His calcium level was at 14. He was started on IV heparin. He was also started on nitroglycerin drip for blood pressure control. He is current rhythm is sinus bradycardia with occasional brief junctional rhythms. The patient is free of any chest pain. His mental status is still altered yet the patient is not agitated. He is following simple commands. Moving all 4 extremities with some known left- sided weakness compared to the right because of previous CVA. His chest x-ray was essentially within normal limits at the time of admission and subsequently developed at the pulmonary infiltrates consistent with acute pulmonary edema. Echo of the heart showed a preserved LV function without any significant valvular abnormalities. A Araujo catheter was inserted and immediately fell and 350 mL of urine output was obtained. The patient was also started on IV Lasix and currently receiving Lasix 40 mg IV push every 12 hours. Pulses are palpable in lower extremities bilaterally. Abdomen is at the bedside and I did ask discussion with the patient's daughter and the . They told me that the patient did not want any intubation mechanical ventilation. BiPAP was okay by them. Per family's wishes the patient is a DNR/DNI CODE STATUS. Note that the patient also has history of prostate cancer yet this is localized and nonmetastatic at this stage and the hypercalcemia is unlikely to be related to his prostate cancer. On today's evaluation of 07/07/2018, the patient is much more comfortable and less shortness of breath compared to yesterday. He was taken off the BiPAP earlier this morning and currently is on 6 L of oxygen by nasal cannula. He did diuresed with IV Lasix and the patient's chest x-ray shows improvement in the volume status although there is some underlying ongoing pulmonary edema. He is free of any chest pain. He remains on IV heparin. He remains on IV nitroglycerin. Blood pressure is still somewhat elevated. His sinus mechanism still present. He is somewhat bradycardic with a heart rate in the mid 50s. No chest pain. Troponin is been dropping down and downtrending. No fever. No chills. No altered mentation and is following commands and answering questions. He is demonstrating significant motor weakness both in upper and lower extremities. Today's creatinine is at 2.3. Troponin is downtrending is down to 6.8. On 07/08/2018, the patient is feeling less short of breath compared to yesterday. He spent the night on the BiPAP and currently is on 8 L which I was able to cut down to 5 L and we're the process of weaning this patient's FiO2. Chest x-ray shows ongoing improvement and the pulmonary edema. The patient is free of any chest pain. Remains on IV nitroglycerin at 5 mics and remains on IV heparin. The patient is producing adequate amount of urine output and he is a negative fluid balance as being on Lasix 40 mg IV push every 12 hours. Creatinine is still stable at 2.3. He is free of any chest pain. His calcium level is also normalized. Nephrology is on the case. He is still extremely weak yet there is no altered mentation on today's evaluation. Objective - Vital Signs Vital signs: Vital Signs Temp 97.5 F L 07/08/18 08:00 Pulse 55 L 07/08/18 11:00 Resp 17 07/08/18 11:00 BP 105/55 07/08/18 11:00 Pulse Ox 95 07/08/18 11:00 Intake & Output 07/07/18 07/08/18 07/08/18 18:59 06:59 18:59 Intake Total 90 903.292 420 Output Total 831 1250 450 Balance -741 -346.708 -30 Weight 88.8 kg 88.8 kg Intake: IV 90 150 60 .9 90 100 10 Piperacillin-Tazobactam 3 50 50 .375 gm In Dextrose/Water 1 50ml.bag @ 12.5 mls/hr IVPB Q8HR [facility] Rx#: [id number] Intake, IV Titration 753.292 Amount Heparin Sod,Pork in 0.45% 720.267 NaCl 25,000 unit In 0.45 % NaCl 1 500ml.bag @ 11.6 UNITS/KG/HR 19.99 mls/hr IV .Q24H [facility] Rx#: [id number] Nitroglycerin-D5w Pmx 50 33.025 mg In Dextrose/Water 1 250ml.bag @ 5 MCG/MIN 1.5 mls/hr IV .Q24H [facility] Rx#: [id number] Oral 360 Output: Urine 831 1250 450 Other: Voiding Method Indwelling Catheter Indwelling Catheter Indwelling Catheter # Bowel Movements 0 - Exam Gen. appearance the patient is a mild degree of respirator distress. He is following some simple commands. He opens his eyes spontaneously. He is tolerating oxygen 5 L per minute nasal cannula Head exam was generally normal. There was no scleral icterus or corneal arcus. Mucous membranes were moist. Neck was supple and without jugular venous distension, thyromegaly, or carotid bruits. Carotids were easily palpable bilaterally. There was no adenopathy. Lungs sounds are diminished bilaterally and there is crackles in the mid in the lower lung alvarez and some few scattered expiratory wheeze. Heart sounds are regular, somewhat bradycardic, so no significant murmurs appreciated. No right ventricular heave or thrill. Abdominal exam revealed normal bowel sounds. The abdomen was soft, non-tender, and without masses, organomegaly, or appreciable enlargement of the abdominal aorta. Examination of the extremities revealed easily palpable radial, femoral and pedal pulses. There was no cyanosis, clubbing or edema. Examination of the skin revealed no evidence of significant rashes, suspicious appearing nevi or other concerning lesions. Neurologically, follows some simple commands. - Labs CBC & Chem 7: 07/08/18 04:26 07/08/18 04:26 Labs: Abnormal Lab Results - Last 24 Hours (Table) 07/07/18 07/07/18 07/08/18 Range/Units 16:52 20:41 04:26 RBC 2.33 L (4.30-5.90) m/uL Hgb 8.9 L (13.0-17.5) gm/dL Hct 27.3 L (39.0-53.0) % MCV 117.3 H (80.0-100.0) fL MCH 38.1 H (25.0-35.0) pg Lymphocytes # 0.6 L (1.0-4.8) k/uL APTT (22.0-30.0) sec Potassium (3.5-5.1) mmol/L Chloride (98-107) mmol/L Carbon Dioxide (22-30) mmol/L BUN (9-20) mg/dL Creatinine (0.66-1.25) mg/dL Glucose (74-99) mg/dL POC Glucose (mg/dL) 128 H 133 H (75-99) mg/dL Phosphorus (2.5-4.5) mg/dL Total Protein (6.3-8.2) g/dL Albumin (3.5-5.0) g/dL 07/08/18 07/08/18 07/08/18 Range/Units 04:26 04:26 07:55 RBC (4.30-5.90) m/uL Hgb (13.0-17.5) gm/dL Hct (39.0-53.0) % MCV (80.0-100.0) fL MCH (25.0-35.0) pg Lymphocytes # (1.0-4.8) k/uL APTT 40.1 H (22.0-30.0) sec Potassium 3.4 L (3.5-5.1) mmol/L Chloride 109 H (98-107) mmol/L Carbon Dioxide 21 L (22-30) mmol/L BUN 39 H (9-20) mg/dL Creatinine 2.30 H (0.66-1.25) mg/dL Glucose 73 L (74-99) mg/dL POC Glucose (mg/dL) 73 L (75-99) mg/dL Phosphorus 2.4 L (2.5-4.5) mg/dL Total Protein 5.6 L (6.3-8.2) g/dL Albumin 3.0 L (3.5-5.0) g/dL Assessment and Plan Plan: Assessment 1 acute hypoxic history failure, mainly secondary to cardiogenic pulmonary edema in the setting of an acute non-ST segment elevation myocardial infarction. The patient was also in acute kidney injury. He is producing urine and he is a negative fluid balance. His oxygenation is improved and the patient is currently down to 5 L and the chest x-rays showing also improvement in aeration. He has clinically is short of breath. He is still using the BiPAP overnight. 2 coronary artery disease with previous four-vessel bypass surgery 3 acute non-ST segment elevation myocardial infarction with secondary chest pain 4 acute kidney injury, improving the creatinine is down to 2.3, stable 5 acute hypercalcemia likely to excessive intake of Tums on outpatient basis, improving and the calcium level is down trending 6 previous history aortic valve replacement TAVR 7 atrial fibrillation of a new onset, converted into normal sinus rhythm, currently in sinus bradycardia with occasional junctional mechanism 8 previous history of CVA 9 diabetes mellitus 10 diabetic peripheral neuropathy 11 peripheral vascular disease 12 hematologic disorder maintained on Hydrea on outpatient basis exact type is not known to me at this point 13 history of chronic iron deficiency anemia 14 prostate cancer 15 hypothyroidism 16 DNR/DNI CODE STATUS Plan With suggest weaning down the FiO2 as tolerated. He is currently down to 5 L. Continue IV Lasix 40 mg every 12 hours. Monitor the renal function. Stop the nitroglycerin drip and switch this patient to image her 60 mg by mouth daily. The patient is also on metoprolol and Norvasc for blood pressure control. Continued IV heparin. Continue aspirin and Plavix. Continue monitoring cardiac status and the pulmonary status and I would suggest keeping the patient ICU for another 24 hours. He remains quite debilitated and weak and we will gradually introduce physical therapy. His blood sugars under good control. Continue Levemir insulin. The patient is tolerating his diet.
[2018-07-08 12:39] LABS: Glucose,Whole Blood 189 mg/dL (75-99)
[2018-07-08] MEDS: INSULIN DETEMIR 100 UNIT/ML 10 ML VIAL SQ SCH (12:40)
[2018-07-08] MEDS: ISOSORBIDE MONONITRATE ER 60 MG TAB.ER.24H PO SCH (12:43)
--- NOTE | 2018-07-08 16:19 | P.PN ---
Subjective Progress Note Date: 07/08/18 Principal diagnosis: Acute hypoxic respiratory failure Mr. Lomas is a 67-year-old male with a past medical history of congestive heart failure, coronary artery disease status post recent CABG, prior total her to call if replacement, hyperlipidemia, stroke admitted to the hospital with an STEMI. He is currently being treated for congestive heart failure exacerbation and acute kidney injury. He is being treated with BiPAP during the nighttime and even during the day on and off BiPAP. Today patient states that he feels less short of breath compared to couple of days back. And the chest x-ray shows improvement in his pulmonary edema. He is still being monitored in the ICU. Review of systems Constitutional: No fevers chills or rigors Cardiovascular: No chest pain or no palpitations Respiratory: Improvement and difficulty in breathing Abdomen: No nausea vomiting or or abdominal pain Objective - Vital Signs Vital signs: Vital Signs Temp 97.5 F L 07/08/18 08:00 Pulse 58 L 07/08/18 15:00 Resp 20 07/08/18 15:00 BP 139/52 07/08/18 15:00 Pulse Ox 94 L 07/08/18 15:00 Intake & Output 07/07/18 07/08/18 07/08/18 18:59 06:59 18:59 Intake Total 90 903.292 719.725 Output Total 831 1250 925 Balance -741 -346.708 -205.275 Weight 88.8 kg 88.8 kg Intake: IV 90 150 100 .9 90 100 50 Piperacillin-Tazobactam 3 50 50 .375 gm In Dextrose/Water 1 50ml.bag @ 12.5 mls/hr IVPB Q8HR [facility] Rx#: [id number] Intake, IV Titration 753.292 19.725 Amount Heparin Sod,Pork in 0.45% 720.267 NaCl 25,000 unit In 0.45 % NaCl 1 500ml.bag @ 11.6 UNITS/KG/HR 19.99 mls/hr IV .Q24H [facility] Rx#: [id number] Nitroglycerin-D5w Pmx 50 33.025 19.725 mg In Dextrose/Water 1 250ml.bag @ 5 MCG/MIN 1.5 mls/hr IV .Q24H [facility] Rx#: [id number] Oral 600 Output: Urine 831 1250 925 Other: Voiding Method Indwelling Catheter Indwelling Catheter Indwelling Catheter # Bowel Movements 0 0 - Exam Gen. examination: Mild respiratory distress HEENT: No icterus no pallor Neck: No JVD no thyromegaly no carotid artery bruit Cardiovascular: Bradycardia S1 and S2 heard Lungs:Decreased bilateral air entry in all lung alvarez with mild crackles in the lower lobes bilaterally and few expiratory wheezes Abdomen: Soft nontender mildly distended nontender bowel sounds positive STRAP STITCHER: Alert awake oriented 2, no focal neurological deficits and follows commands - Labs CBC & Chem 7: 07/08/18 04:26 07/08/18 04:26 Labs: Abnormal Lab Results - Last 24 Hours (Table) 07/07/18 07/07/18 07/08/18 Range/Units 16:52 20:41 04:26 RBC 2.33 L (4.30-5.90) m/uL Hgb 8.9 L (13.0-17.5) gm/dL Hct 27.3 L (39.0-53.0) % MCV 117.3 H (80.0-100.0) fL MCH 38.1 H (25.0-35.0) pg Lymphocytes # 0.6 L (1.0-4.8) k/uL APTT (22.0-30.0) sec Potassium (3.5-5.1) mmol/L Chloride (98-107) mmol/L Carbon Dioxide (22-30) mmol/L BUN (9-20) mg/dL Creatinine (0.66-1.25) mg/dL Glucose (74-99) mg/dL POC Glucose (mg/dL) 128 H 133 H (75-99) mg/dL Phosphorus (2.5-4.5) mg/dL Total Protein (6.3-8.2) g/dL Albumin (3.5-5.0) g/dL 07/08/18 07/08/18 07/08/18 Range/Units 04:26 04:26 07:55 RBC (4.30-5.90) m/uL Hgb (13.0-17.5) gm/dL Hct (39.0-53.0) % MCV (80.0-100.0) fL MCH (25.0-35.0) pg Lymphocytes # (1.0-4.8) k/uL APTT 40.1 H (22.0-30.0) sec Potassium 3.4 L (3.5-5.1) mmol/L Chloride 109 H (98-107) mmol/L Carbon Dioxide 21 L (22-30) mmol/L BUN 39 H (9-20) mg/dL Creatinine 2.30 H (0.66-1.25) mg/dL Glucose 73 L (74-99) mg/dL POC Glucose (mg/dL) 73 L (75-99) mg/dL Phosphorus 2.4 L (2.5-4.5) mg/dL Total Protein 5.6 L (6.3-8.2) g/dL Albumin 3.0 L (3.5-5.0) g/dL 07/08/18 07/08/18 Range/Units 12:38 13:10 RBC (4.30-5.90) m/uL Hgb (13.0-17.5) gm/dL Hct (39.0-53.0) % MCV (80.0-100.0) fL MCH (25.0-35.0) pg Lymphocytes # (1.0-4.8) k/uL APTT 46.1 H (22.0-30.0) sec Potassium (3.5-5.1) mmol/L Chloride (98-107) mmol/L Carbon Dioxide (22-30) mmol/L BUN (9-20) mg/dL Creatinine (0.66-1.25) mg/dL Glucose (74-99) mg/dL POC Glucose (mg/dL) 189 H (75-99) mg/dL Phosphorus (2.5-4.5) mg/dL Total Protein (6.3-8.2) g/dL Albumin (3.5-5.0) g/dL Assessment and Plan Assessment: ASSESSMENT Acute hypoxic respiratory failure NSTEMI Acute kidney injury Coronary artery disease status post CABG Acute hypercalcemia History of all for aortic valve replacement in the past Previous history of CVA Diabetes mellitus type 2 with neuropathy Iron deficiency anemia chronic Hypothyroidism History of prostate cancer Peripheral vascular disease Plan: Patient has been off of nitro drip. He is getting IV Lasix twice a day 40 mg. Continue IV heparin for his NSTEMI for 48 hours. Continue with the rest of his home medication regimen. We will adjust insulin requirement depending upon blood sugar levels. Patient is DNR/DNI. Overall prognosis is guarded.
[2018-07-08 17:56] LABS: Glucose,Whole Blood 224 mg/dL (75-99)
[2018-07-08 20:17] LABS: Glucose,Whole Blood 142 mg/dL (75-99)
[2018-07-08] MEDS: ATORVASTATIN 80 MG TAB PO SCH (21:34)
[2018-07-08] MEDS: VENLAFAXINE HCL ER 75 MG CAP PO SCH (22:37)
[2018-07-09] MEDS: PIPERACILLIN-TAZOBACTAM 3.375 GM in DEXTROSE/WATER 1 50ML.BAG IVPB SCH ×3 (00:30→16:40)
[2018-07-09 05:08] LABS: Basophils % (A) 0 %; Eosinophils # (A) 0.3 k/uL (0-0.7); Eosinophils % (A) 6 %; HCT 29.3 % (39.0-53.0); HGB 9.3 gm/dL (13.0-17.5); Lymphocytes # (A) 0.7 k/uL (1.0-4.8); Lymphocytes % (A) 15 %; MCH 37.3 pg (25.0-35.0); MCHC 31.7 g/dL (31.0-37.0); MCV 117.6 fL (80.0-100.0); Macrocytosis Marked; Monocytes # (A) 0.4 k/uL (0-1.0); Monocytes % (A) 9 %; Neutrophils # (A) 3.1 k/uL (1.3-7.7); Neutrophils % (A) 68 %; Platelet Count 435 k/uL (150-450); RBC 2.49 m/uL (4.30-5.90); RDW 14.9 % (11.5-15.5); WBC 4.6 k/uL (3.8-10.6)
[2018-07-09 05:33] LABS: Albumin 3.1 g/dL (3.5-5.0); Calcium 8.6 mg/dL (8.4-10.2); Magnesium 1.9 mg/dL (1.6-2.3); Phosphorus 2.4 mg/dL (2.5-4.5); Potassium 3.5 mmol/L (3.5-5.1); Total Bilirubin 0.5 mg/dL (0.2-1.3); Total Protein 5.8 g/dL (6.3-8.2)
[2018-07-09] MEDS: POTASSIUM CHLORIDE 20 MEQ in WATER FOR INJECTION 1 100ML.BAG IVPB SCH ×2 (06:45→08:19)
[2018-07-09] MEDS: LEVOTHYROXINE 125 MCG TAB PO SCH (07:07)
[2018-07-09 07:13] LABS: Glucose,Whole Blood 84 mg/dL (75-99)
[2018-07-09] MEDS: INSULIN ASPART 100 UNIT/ML 1 ML 10 ML VIAL SQ SCH ×4 (07:24→21:21)
[2018-07-09] MEDS: PANTOPRAZOLE 40 MG TABLET PO SCH (08:18)
[2018-07-09] MEDS: INSULIN DETEMIR 100 UNIT/ML 10 ML VIAL SQ SCH (08:19)
[2018-07-09] MEDS: CLOPIDOGREL 75 MG TAB PO SCH (08:19)
[2018-07-09] MEDS: METOPROLOL TARTRATE 50 MG TAB PO SCH ×2 (08:19→21:21)
[2018-07-09] MEDS: ASPIRIN 81 MG PO SCH (08:19)
[2018-07-09] MEDS: FERROUS SULFATE 325 MG TAB PO SCH (08:19)
[2018-07-09] MEDS: ISOSORBIDE MONONITRATE ER 60 MG TAB.ER.24H PO SCH (08:19)
[2018-07-09] MEDS: amLODIPine 10 MG TAB PO SCH (08:19)
[2018-07-09] MEDS: PREGABALIN 100 MG CAP PO SCH ×2 (08:19→21:21)
--- NOTE | 2018-07-09 09:18 | XR ---
EXAMINATION TYPE: XR chest 1V DATE OF EXAM: 07/09/2018 HISTORY: chf. REFERENCE: Previous study dated 07/08/2018. FINDINGS: There has been a midline sternotomy. The heart is enlarged. There is worsening vascular congestion and pulmonary edema. There is a small l eft effusion. IMPRESSION: WORSENING CHANGES OF PULMONARY EDEMA.
[2018-07-09] MEDS: FUROSEMIDE 10 MG/ML 2 ML VIAL IV SCH ×2 (09:24→21:20)
--- NOTE | 2018-07-09 09:33 | P.PN ---
Subjective This is a pleasant 67-year-old male past medical history significant for coronary artery disease status post bypass grafting, history of CAD or, dyslipidemia and CVA. He presented to the hospital with non-ST elevation AL along with congestive heart failure and renal failure. Echocardiogram revealed normal LV function. Patient was recommended to be treated medically due to advanced renal failure. He was transferred to the ICU due to severe agitation. He has been transitioned to oral nitrates and heparin infusion has been stopped. He is seen and examined resting comfortably in bed in no acute distress. Mildly tachypneic. He denies any symptoms of chest pain, shortness of breath, palpitations or dizziness. Telemetry tracings indicate sinus mechanism. Laboratory data reviewed, hemoglobin 9.3, platelets 435, potassium 3.5, sodium 139, creatinine 2.1, magnesium 1.9. Blood pressure 138/65 heart rate 58 afebrile maintaining oxygen saturation on nasal cannula. Chest x-ray this morning reveals worsening vascular congestion and pulmonary edema with small left pleural effusion. Currently maintained on amlodipine 10 mg daily, aspirin 81 mg daily, atorvastatin 80 mg daily, Plavix 75 mg daily, Lasix 40 mg IV twice a day, Imdur 60 mg daily, Lopressor 50 mg twice a day and IV antibiotics. Objective - Vital Signs Vital signs: Vital Signs Temp 98.1 F 07/09/18 04:00 Pulse 58 L 07/09/18 07:00 Resp 13 07/09/18 07:00 BP 138/65 07/09/18 07:00 Pulse Ox 97 07/09/18 07:00 Intake & Output 07/08/18 07/09/18 07/09/18 18:59 06:59 18:59 Intake Total 1548.316 170 Output Total 1225 2780 Balance 323.316 -2610 Weight 88.8 kg 86.4 kg 86.4 kg Intake: IV 180 170 .9 80 120 Piperacillin-Tazobactam 3 100 50 .375 gm In Dextrose/Water 1 50ml.bag @ 12.5 mls/hr IVPB Q8HR [facility] Rx#: [id number] Intake, IV Titration 268.316 Amount Heparin Sod,Pork in 0.45% 248.591 NaCl 25,000 unit In 0.45 % NaCl 1 500ml.bag @ 11.6 UNITS/KG/HR 19.99 mls/hr IV .Q24H [facility] Rx#: [id number] Nitroglycerin-D5w Pmx 50 19.725 mg In Dextrose/Water 1 250ml.bag @ 5 MCG/MIN 1.5 mls/hr IV .Q24H [facility] Rx#: [id number] Oral 1100 Output: Urine 1225 2780 Other: Voiding Method Indwelling Catheter Indwelling Catheter Indwelling Catheter # Bowel Movements 0 0 - Exam GENERAL: Well-appearing, well-nourished and in no acute distress. NECK: Supple without JVD or thyromegaly. LUNGS: Bibasilar rales, diminished. No wheezes or rhonchi. Respiration equal and unlabored. HEART: Regular rate and rhythm with systolic ejection murmur at the base, no rubs or gallops. S1 and S2 heard. EXTREMITIES: Normal range of motion, no edema. No clubbing or cyanosis. Peripheral pulses intact. - Labs CBC & Chem 7: 07/09/18 04:07 07/09/18 04:07 Labs: Abnormal Lab Results - Last 24 Hours (Table) 07/08/18 07/08/18 07/08/18 Range/Units 12:38 13:10 17:53 RBC (4.30-5.90) m/uL Hgb (13.0-17.5) gm/dL Hct (39.0-53.0) % MCV (80.0-100.0) fL MCH (25.0-35.0) pg Lymphocytes # (1.0-4.8) k/uL APTT 46.1 H (22.0-30.0) sec Chloride (98-107) mmol/L BUN (9-20) mg/dL Creatinine (0.66-1.25) mg/dL Glucose (74-99) mg/dL POC Glucose (mg/dL) 189 H 224 H (75-99) mg/dL Phosphorus (2.5-4.5) mg/dL Total Protein (6.3-8.2) g/dL Albumin (3.5-5.0) g/dL 07/08/18 07/09/18 07/09/18 Range/Units 20:17 04:07 04:07 RBC 2.49 L (4.30-5.90) m/uL Hgb 9.3 L (13.0-17.5) gm/dL Hct 29.3 L (39.0-53.0) % MCV 117.6 H (80.0-100.0) fL MCH 37.3 H (25.0-35.0) pg Lymphocytes # 0.7 L (1.0-4.8) k/uL APTT (22.0-30.0) sec Chloride 108 H (98-107) mmol/L BUN 32 H (9-20) mg/dL Creatinine 2.10 H (0.66-1.25) mg/dL Glucose 72 L (74-99) mg/dL POC Glucose (mg/dL) 142 H (75-99) mg/dL Phosphorus 2.4 L (2.5-4.5) mg/dL Total Protein 5.8 L (6.3-8.2) g/dL Albumin 3.1 L (3.5-5.0) g/dL Assessment and Plan Assessment: ASSESSMENT Acute non-ST elevation AL Acute on chronic diastolic heart failure with preserved ejection fraction Severe underlying coronary artery disease status post stenting and bypass grafting Status post TAVR Chronic kidney disease Hypertension Dyslipidemia PLAN He has over 2 L negative fluid balance for the previous 24 hours. Give additional dose of Lasix 20 mg IV now. Continue current medications. Continue to monitor kidney function and electrolytes as well as intake and output and daily weights. Further recommendations to follow based upon clinical course. Nurse Practitioner note has been reviewed, I agree with a documented findings and plan of care. Patient was seen and examined.
[2018-07-09] MEDS ORDERED: FUROSEMIDE 10 MG/ML 2 ML VIAL IV STA (09:34)
--- NOTE | 2018-07-09 10:18 | P.PN ---
Subjective Progress Note Date: 07/09/18 Principal diagnosis: This is a 67-year-old male seen in consultation because of hypercalcemia and acute kidney injury, hypercalcemia is from large amounts of Tums he was taking as well as some vitamin D preparation. He came in with chest pain, acute ME, and is currently pain free on nitroglycerin drip, his troponin went up to 30 and he has an acute ME. His admission calcium was 14.4 and creatinine of 2.49. Baseline creatinine is 1.2 with a GFR of 62 and permanent. His calcium is responded to the 2 mg of Zometa and IV fluids with Lasix. IV fluids have been discontinued. On 07/09/2018 he is on room air comfortable awake and alert continues to be on Lasix with good urine output of 4000 mL of the last 24 hours. His bypass been changed to nasal cannula. He says his appetite is good. No chest pain. No fever chills cough shortness of breath. 0 Objective - Vital Signs Vital signs: Vital Signs Temp 97.0 F L 07/09/18 08:00 Pulse 58 L 07/09/18 09:00 Resp 17 07/09/18 09:00 BP 163/67 07/09/18 09:00 Pulse Ox 94 L 07/09/18 09:00 Intake & Output 07/08/18 07/09/18 07/09/18 18:59 06:59 18:59 Intake Total 1548.316 170 650 Output Total 1225 2780 550 Balance 323.316 -2610 100 Weight 88.8 kg 86.4 kg 86.4 kg Intake: IV 180 170 50 .9 80 120 Piperacillin-Tazobactam 3 100 50 50 .375 gm In Dextrose/Water 1 50ml.bag @ 12.5 mls/hr IVPB Q8HR [facility] Rx#: [id number] Intake, IV Titration 268.316 100 Amount Heparin Sod,Pork in 0.45% 248.591 NaCl 25,000 unit In 0.45 % NaCl 1 500ml.bag @ 11.6 UNITS/KG/HR 19.99 mls/hr IV .Q24H [facility] Rx#: [id number] Nitroglycerin-D5w Pmx 50 19.725 mg In Dextrose/Water 1 250ml.bag @ 5 MCG/MIN 1.5 mls/hr IV .Q24H [facility] Rx#: [id number] Potassium Chloride 20 meq 100 In Water For Injection 1 100ml.bag @ 50 mls/hr IVPB Q2HR [facility] Rx#: [id number] Oral 1100 500 Output: Urine 1225 2780 550 Other: Voiding Method Indwelling Catheter Indwelling Catheter Indwelling Catheter # Bowel Movements 0 0 On examination is awake alert oriented. HEENT exam no JVP neck is supple no facial asymmetry Lungs are clear to auscultation with an occasional fine crackle at bases. Good air entry bilaterally Heart sounds are unremarkable for any murmur rub gallop somewhat irregular on the monitor. Abdomen soft nontender extremity exam reveals no edema Neurologically awake alert oriented he has chronic left-sided residual weakness - Labs CBC & Chem 7: 07/09/18 04:07 07/09/18 04:07 Labs: Abnormal Lab Results - Last 24 Hours (Table) 07/08/18 07/08/18 07/08/18 Range/Units 12:38 13:10 17:53 RBC (4.30-5.90) m/uL Hgb (13.0-17.5) gm/dL Hct (39.0-53.0) % MCV (80.0-100.0) fL MCH (25.0-35.0) pg Lymphocytes # (1.0-4.8) k/uL APTT 46.1 H (22.0-30.0) sec Chloride (98-107) mmol/L BUN (9-20) mg/dL Creatinine (0.66-1.25) mg/dL Glucose (74-99) mg/dL POC Glucose (mg/dL) 189 H 224 H (75-99) mg/dL Phosphorus (2.5-4.5) mg/dL Total Protein (6.3-8.2) g/dL Albumin (3.5-5.0) g/dL 07/08/18 07/09/18 07/09/18 Range/Units 20:17 04:07 04:07 RBC 2.49 L (4.30-5.90) m/uL Hgb 9.3 L (13.0-17.5) gm/dL Hct 29.3 L (39.0-53.0) % MCV 117.6 H (80.0-100.0) fL MCH 37.3 H (25.0-35.0) pg Lymphocytes # 0.7 L (1.0-4.8) k/uL APTT (22.0-30.0) sec Chloride 108 H (98-107) mmol/L BUN 32 H (9-20) mg/dL Creatinine 2.10 H (0.66-1.25) mg/dL Glucose 72 L (74-99) mg/dL POC Glucose (mg/dL) 142 H (75-99) mg/dL Phosphorus 2.4 L (2.5-4.5) mg/dL Total Protein 5.8 L (6.3-8.2) g/dL Albumin 3.1 L (3.5-5.0) g/dL Assessment and Plan Assessment: Impression 1. Acute kidney injury secondary to hypercalcemia. Creatinine is starting to trend down from 2.49 milligram to 2.1 mg this morning. 2. Hypercalcemia secondary to excessive Tums intake, as well as some kind of a vitamin D pill 3 times a week although his not listed on his med list. Calcium is down to 8.6. His off of the IV saline. 3. Admitted with chest pain acute ME troponins 30. Pain-free on nitroglycerin drip. Troponin down to 6.8 as of 07/07/2018 and has had history of of coronary artery bypass graft with aortic valve replacement on 02/24/2016 at [facility]. 5. Left-sided CVA with residual weakness 6. Anemia, hemoglobin went down from 11.4-8.5 > 8.9 > 9.3 , no obvious GI bleed. Some of it is from hydration and dilution 7. Congestive heart failure, on BiPAP , improved to nasal cannula but chest x- ray still shows CHF Recommendation. 1. Continue IV Lasix 40 mg every 12, his responded with urine output of 2 L 2. Monitor calcium and renal function 3. Monitor I's and O's strictly. 4. Keep blood pressure around 110 to 1:30 6. Avoid any nephrotoxic medications.
--- NOTE | 2018-07-09 11:43 | P.PN ---
Subjective Progress Note Date: 07/09/18 67-year-old male patient who came into the ICU with acute hypoxic respiratory failure. The patient was found to be profoundly hypoxic on the telemetry unit and the patient was placed on a high flow oxygen and subsequently he is placed on a BiPAP at a pressure of 12/5 cm of water and FiO2 of 100% and he got moved to the intensive care unit. The patient is known to have coronary artery disease. He underwent coronary artery bypass surgery back in 2016 and he underwent four-vessel bypass surgery that was done by Dr. Nathan Moeller. Patient underwent SANTOS to LAD saphenous vein graft to OM 1 OM 2 and distal RCA. Subsequently also underwent aortic TAVR. The patient is also known to have multiple medical problems including previous history of CVA and residual left- sided weakness, diabetes mellitus, hypertension and hyperlipidemia and is a chronic smoker continues to smoke cigarettes. Over the past 3 days the patient was having some altered mentation. He was on and off found by family members to be confused. Subsequently he started having intermittent chest pain. Apparently was having symptoms of heartburn and he was over utilizing Tums and he was taking Tums tablet up to 10 tablets on a daily basis. He was not getting much relief. He came into the hospital and in the ED the patient was found to have a BP of 190/80 with a pulse ox of 98% on 2 L and a heart rate of 120 irregular consistent with atrial fibrillation and rapid ventricular response. The patient also had EKG changes with some nonspecific ST/ST segment abnormalities and depression in the lateral leads. [id number] in for acute non-ST segment elevation myocardial infarction and troponin peaked at 27. The patient also developed an acute kidney injury. His calcium level was at 14. He was started on IV heparin. He was also started on nitroglycerin drip for blood pressure control. He is current rhythm is sinus bradycardia with occasional brief junctional rhythms. The patient is free of any chest pain. His mental status is still altered yet the patient is not agitated. He is following simple commands. Moving all 4 extremities with some known left- sided weakness compared to the right because of previous CVA. His chest x-ray was essentially within normal limits at the time of admission and subsequently developed at the pulmonary infiltrates consistent with acute pulmonary edema. Echo of the heart showed a preserved LV function without any significant valvular abnormalities. A Araujo catheter was inserted and immediately fell and 350 mL of urine output was obtained. The patient was also started on IV Lasix and currently receiving Lasix 40 mg IV push every 12 hours. Pulses are palpable in lower extremities bilaterally. Abdomen is at the bedside and I did ask discussion with the patient's daughter and the . They told me that the patient did not want any intubation mechanical ventilation. BiPAP was okay by them. Per family's wishes the patient is a DNR/DNI CODE STATUS. Note that the patient also has history of prostate cancer yet this is localized and nonmetastatic at this stage and the hypercalcemia is unlikely to be related to his prostate cancer. On today's evaluation of 07/07/2018, the patient is much more comfortable and less shortness of breath compared to yesterday. He was taken off the BiPAP earlier this morning and currently is on 6 L of oxygen by nasal cannula. He did diuresed with IV Lasix and the patient's chest x-ray shows improvement in the volume status although there is some underlying ongoing pulmonary edema. He is free of any chest pain. He remains on IV heparin. He remains on IV nitroglycerin. Blood pressure is still somewhat elevated. His sinus mechanism still present. He is somewhat bradycardic with a heart rate in the mid 50s. No chest pain. Troponin is been dropping down and downtrending. No fever. No chills. No altered mentation and is following commands and answering questions. He is demonstrating significant motor weakness both in upper and lower extremities. Today's creatinine is at 2.3. Troponin is downtrending is down to 6.8. On 07/08/2018, the patient is feeling less short of breath compared to yesterday. He spent the night on the BiPAP and currently is on 8 L which I was able to cut down to 5 L and we're the process of weaning this patient's FiO2. Chest x-ray shows ongoing improvement and the pulmonary edema. The patient is free of any chest pain. Remains on IV nitroglycerin at 5 mics and remains on IV heparin. The patient is producing adequate amount of urine output and he is a negative fluid balance as being on Lasix 40 mg IV push every 12 hours. Creatinine is still stable at 2.3. He is free of any chest pain. His calcium level is also normalized. Nephrology is on the case. He is still extremely weak yet there is no altered mentation on today's evaluation. On 07/09/2018, the patient is awake. I was told that he had a episode of confusion yesterday with subsequently recovered and he is back to normal mentation this morning. Less short of breath. I cut him down to 3 L about 2 by nasal cannula. Chest x-ray showed improvement in the pulmonary edema and follow-up chest x-ray today shows further improvement. He has produced good amount of urine output while being on IV Lasix. Is a negative fluid balance of at least 2.5 L for yesterday. No chest pain. IV heparin was discontinued. Nitroglycerin was discontinued. He is on empiric antibiotic coverage with IV Zosyn. Hemodynamically stable. No cardiac arrhythmias noted. Renal function impaired yesterday but with a creatinine of 2.1. Objective - Vital Signs Vital signs: Vital Signs Temp 97.0 F L 07/09/18 08:00 Pulse 62 07/09/18 11:00 Resp 15 07/09/18 11:00 BP 111/74 07/09/18 11:00 Pulse Ox 96 07/09/18 11:00 Intake & Output 07/08/18 07/09/18 07/09/18 18:59 06:59 18:59 Intake Total 1548.125 280 2703 Output Total 1225 2780 900 Balance 323.316 -2610 110 Weight 88.8 kg 86.4 kg 86.4 kg Intake: IV 180 170 50 .9 80 120 Piperacillin-Tazobactam 3 100 50 50 .375 gm In Dextrose/Water 1 50ml.bag @ 12.5 mls/hr IVPB Q8HR [facility] Rx#: [id number] Intake, IV Titration 268.316 100 Amount Heparin Sod,Pork in 0.45% 248.591 NaCl 25,000 unit In 0.45 % NaCl 1 500ml.bag @ 11.6 UNITS/KG/HR 19.99 mls/hr IV .Q24H [facility] Rx#: [id number] Nitroglycerin-D5w Pmx 50 19.725 mg In Dextrose/Water 1 250ml.bag @ 5 MCG/MIN 1.5 mls/hr IV .Q24H [facility] Rx#: [id number] Potassium Chloride 20 meq 100 In Water For Injection 1 100ml.bag @ 50 mls/hr IVPB Q2HR [facility] Rx#: [id number] Oral 1100 860 Output: Urine 1225 2780 900 Other: Voiding Method Indwelling Catheter Indwelling Catheter Indwelling Catheter # Bowel Movements 0 0 - Exam Gen. appearance the patient is a mild degree of respirator distress. He is following some simple commands. He opens his eyes spontaneously. He is tolerating oxygen 5 L per minute nasal cannula Head exam was generally normal. There was no scleral icterus or corneal arcus. Mucous membranes were moist. Neck was supple and without jugular venous distension, thyromegaly, or carotid bruits. Carotids were easily palpable bilaterally. There was no adenopathy. Lungs sounds are diminished bilaterally and there is crackles in the mid in the lower lung alvarez and some few scattered expiratory wheeze. Heart sounds are regular, somewhat bradycardic, so no significant murmurs appreciated. No right ventricular heave or thrill. Abdominal exam revealed normal bowel sounds. The abdomen was soft, non-tender, and without masses, organomegaly, or appreciable enlargement of the abdominal aorta. Examination of the extremities revealed easily palpable radial, femoral and pedal pulses. There was no cyanosis, clubbing or edema. Examination of the skin revealed no evidence of significant rashes, suspicious appearing nevi or other concerning lesions. Neurologically, follows some simple commands. - Labs CBC & Chem 7: 07/09/18 04:07 07/09/18 04:07 Labs: Abnormal Lab Results - Last 24 Hours (Table) 07/08/18 07/08/18 07/08/18 Range/Units 12:38 13:10 17:53 RBC (4.30-5.90) m/uL Hgb (13.0-17.5) gm/dL Hct (39.0-53.0) % MCV (80.0-100.0) fL MCH (25.0-35.0) pg Lymphocytes # (1.0-4.8) k/uL APTT 46.1 H (22.0-30.0) sec Chloride (98-107) mmol/L BUN (9-20) mg/dL Creatinine (0.66-1.25) mg/dL Glucose (74-99) mg/dL POC Glucose (mg/dL) 189 H 224 H (75-99) mg/dL Phosphorus (2.5-4.5) mg/dL Total Protein (6.3-8.2) g/dL Albumin (3.5-5.0) g/dL 07/08/18 07/09/18 07/09/18 Range/Units 20:17 04:07 04:07 RBC 2.49 L (4.30-5.90) m/uL Hgb 9.3 L (13.0-17.5) gm/dL Hct 29.3 L (39.0-53.0) % MCV 117.6 H (80.0-100.0) fL MCH 37.3 H (25.0-35.0) pg Lymphocytes # 0.7 L (1.0-4.8) k/uL APTT (22.0-30.0) sec Chloride 108 H (98-107) mmol/L BUN 32 H (9-20) mg/dL Creatinine 2.10 H (0.66-1.25) mg/dL Glucose 72 L (74-99) mg/dL POC Glucose (mg/dL) 142 H (75-99) mg/dL Phosphorus 2.4 L (2.5-4.5) mg/dL Total Protein 5.8 L (6.3-8.2) g/dL Albumin 3.1 L (3.5-5.0) g/dL Assessment and Plan Plan: Assessment 1 acute hypoxic history failure, mainly secondary to cardiogenic pulmonary edema in the setting of an acute non-ST segment elevation myocardial infarction. The patient continues to improve. Oxygenation is improved and is down to 3 L about 2 by nasal cannula and the patient is taken off the BiPAP. Chest x-ray shows improvement in the volume status. 2 coronary artery disease with previous four-vessel bypass surgery 3 acute non-ST segment elevation myocardial infarction with secondary chest pain 4 acute kidney injury, improving the creatinine is down to 2.1 5 acute hypercalcemia likely to excessive intake of Tums on outpatient basis, improving and the calcium level is down trending, and inspect his baseline. 6 previous history aortic valve replacement TAVR 7 atrial fibrillation of a new onset, converted into normal sinus rhythm, currently in sinus mechanism 8 previous history of CVA 9 diabetes mellitus 10 diabetic peripheral neuropathy 11 peripheral vascular disease 12 hematologic disorder maintained on Hydrea on outpatient basis exact type is not known to me at this point 13 history of chronic iron deficiency anemia 14 prostate cancer 15 hypothyroidism 16 DNR/DNI CODE STATUS Plan Continue weaning down the FiO2 as tolerated. Continued IV Lasix for another 24 hours. Renal function continues to improve and the creatinine is down to 2.1. There is significant improvement in the urine output. History of any chest pain. Cardiac medications remain unchanged. Cardiology is on the case. Keep the patient ICU for another 24 hours for further monitoring. He did have a bout of bleeding yesterday which should cover this morning. As for the hypercalcemia, this is normalized and the calcium level is back to his baseline.
[2018-07-09 12:15] LABS: Glucose,Whole Blood 195 mg/dL (75-99)
--- NOTE | 2018-07-09 16:01 | P.PN ---
Subjective Progress Note Date: 07/09/18 Principal diagnosis: Acute hypoxic respiratory failure Mr. Lomas is a 67-year-old male with a past medical history of congestive heart failure, coronary artery disease status post recent CABG, prior total her to call if replacement, hyperlipidemia, stroke admitted to the hospital with an STEMI. He is currently being treated for congestive heart failure exacerbation and acute kidney injury. He is being treated with BiPAP during the nighttime and even during the day on and off BiPAP. On 07/09/18 - patient states that he feels less short of breath compared to couple of days back. And the chest x-ray shows improvement in his pulmonary edema. He is still being monitored in the ICU. Review of systems Constitutional: No fevers chills or rigors Cardiovascular: No chest pain or no palpitations Respiratory: Improvement and difficulty in breathing Abdomen: No nausea vomiting or or abdominal pain Objective - Vital Signs Vital signs: Vital Signs Temp 97.0 F L 07/09/18 12:00 Pulse 60 07/09/18 15:00 Resp 14 07/09/18 15:00 BP 121/51 07/09/18 15:00 Pulse Ox 95 07/09/18 15:00 Intake & Output 07/08/18 07/09/18 07/09/18 18:59 06:59 18:59 Intake Total 1548.525 923 1523 Output Total 1225 2780 1350 Balance 323.316 -2610 160 Weight 88.8 kg 86.4 kg 86.4 kg Intake: IV 180 170 90 .9 80 120 40 Piperacillin-Tazobactam 3 100 50 50 .375 gm In Dextrose/Water 1 50ml.bag @ 12.5 mls/hr IVPB Q8HR [facility] Rx#: [id number] Intake, IV Titration 268.316 200 Amount Heparin Sod,Pork in 0.45% 248.591 NaCl 25,000 unit In 0.45 % NaCl 1 500ml.bag @ 11.6 UNITS/KG/HR 19.99 mls/hr IV .Q24H [facility] Rx#: [id number] Nitroglycerin-D5w Pmx 50 19.725 mg In Dextrose/Water 1 250ml.bag @ 5 MCG/MIN 1.5 mls/hr IV .Q24H [facility] Rx#: [id number] Potassium Chloride 20 meq 200 In Water For Injection 1 100ml.bag @ 50 mls/hr IVPB Q2HR [facility] Rx#: [id number] Oral 1100 1220 Output: Urine 1225 2780 1350 Other: Voiding Method Indwelling Catheter Indwelling Catheter Indwelling Catheter # Bowel Movements 0 0 - Exam Gen. 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 awake oriented 2, no focal neurological deficits and follows commands - Labs CBC & Chem 7: 07/09/18 04:07 07/09/18 04:07 Labs: Abnormal Lab Results - Last 24 Hours (Table) 07/08/18 07/08/18 07/09/18 Range/Units 17:53 20:17 04:07 RBC 2.49 L (4.30-5.90) m/uL Hgb 9.3 L (13.0-17.5) gm/dL Hct 29.3 L (39.0-53.0) % MCV 117.6 H (80.0-100.0) fL MCH 37.3 H (25.0-35.0) pg Lymphocytes # 0.7 L (1.0-4.8) k/uL Chloride (98-107) mmol/L BUN (9-20) mg/dL Creatinine (0.66-1.25) mg/dL Glucose (74-99) mg/dL POC Glucose (mg/dL) 224 H 142 H (75-99) mg/dL Phosphorus (2.5-4.5) mg/dL Total Protein (6.3-8.2) g/dL Albumin (3.5-5.0) g/dL 07/09/18 07/09/18 Range/Units 04:07 12:13 RBC (4.30-5.90) m/uL Hgb (13.0-17.5) gm/dL Hct (39.0-53.0) % MCV (80.0-100.0) fL MCH (25.0-35.0) pg Lymphocytes # (1.0-4.8) k/uL Chloride 108 H (98-107) mmol/L BUN 32 H (9-20) mg/dL Creatinine 2.10 H (0.66-1.25) mg/dL Glucose 72 L (74-99) mg/dL POC Glucose (mg/dL) 195 H (75-99) mg/dL Phosphorus 2.4 L (2.5-4.5) mg/dL Total Protein 5.8 L (6.3-8.2) g/dL Albumin 3.1 L (3.5-5.0) g/dL Assessment and Plan Assessment: ASSESSMENT Acute hypoxic respiratory failure NSTEMI Acute kidney injury Coronary artery disease status post CABG Acute hypercalcemia History of all for aortic valve replacement in the past Previous history of CVA Diabetes mellitus type 2 with neuropathy Iron deficiency anemia chronic Hypothyroidism History of prostate cancer Peripheral vascular disease DNR/DNI Plan: Patient has been off of nitro drip. He is getting IV Lasix twice a day 40 mg. Continue IV heparin for his NSTEMI for 48 hours. Continue with the rest of his home medication regimen. We will adjust insulin requirement depending upon blood sugar levels. Patient is DNR/DNI. Overall prognosis is guarded.
[2018-07-09 16:53] LABS: Glucose,Whole Blood 219 mg/dL (75-99)
[2018-07-09 21:12] LABS: Glucose,Whole Blood 190 mg/dL (75-99)
[2018-07-09] MEDS: ATORVASTATIN 80 MG TAB PO SCH (21:20)
[2018-07-09] MEDS: VENLAFAXINE HCL ER 75 MG CAP PO SCH (21:24)
[2018-07-10] MEDS: PIPERACILLIN-TAZOBACTAM 3.375 GM in DEXTROSE/WATER 1 50ML.BAG IVPB SCH ×3 (00:08→16:03)
[2018-07-10 05:07] LABS: Basophils % (A) 0 %; Eosinophils # (A) 0.3 k/uL (0-0.7); Eosinophils % (A) 8 %; HCT 26.5 % (39.0-53.0); HGB 8.9 gm/dL (13.0-17.5); Lymphocytes # (A) 0.6 k/uL (1.0-4.8); Lymphocytes % (A) 16 %; MCH 38.3 pg (25.0-35.0); MCHC 33.5 g/dL (31.0-37.0); MCV 114.4 fL (80.0-100.0); Macrocytosis Marked; Mean Platelet Volume 6.7; Monocytes # (A) 0.3 k/uL (0-1.0); Monocytes % (A) 7 %; Neutrophils # (A) 2.6 k/uL (1.3-7.7); Neutrophils % (A) 66 %; Platelet Count 493 k/uL (150-450); RBC 2.32 m/uL (4.30-5.90); RDW 14.7 % (11.5-15.5); WBC 3.9 k/uL (3.8-10.6)
[2018-07-10 05:29] LABS: Magnesium 1.9 mg/dL (1.6-2.3); Phosphorus 2.4 mg/dL (2.5-4.5); Potassium 3.5 mmol/L (3.5-5.1)
[2018-07-10] MEDS ORDERED: Magnesium Replacement Protocol 1 EACH MISC MISCELLANE PRN (06:05)
[2018-07-10] MEDS ORDERED: Potassium Replacement Protocol 1 EACH MISC MISCELLANE PRN (06:05)
[2018-07-10] MEDS: LEVOTHYROXINE 125 MCG TAB PO SCH (06:06)
[2018-07-10] MEDS: MAGNESIUM SULFATE-D5W PMX 1 GM in DEXTROSE/WATER 1 100ML.BAG IVPB SCH ×2 (06:28→07:40)
[2018-07-10 07:11] LABS: Glucose,Whole Blood 98 mg/dL (75-99)
[2018-07-10] MEDS: POTASSIUM CHLORIDE ER 20 MEQ TAB.ER PO SCH ×2 (07:37→08:42)
[2018-07-10] MEDS: FUROSEMIDE 10 MG/ML 2 ML VIAL IV SCH ×2 (07:38→20:36)
[2018-07-10] MEDS: PANTOPRAZOLE 40 MG TABLET PO SCH (07:39)
[2018-07-10] MEDS: ISOSORBIDE MONONITRATE ER 60 MG TAB.ER.24H PO SCH (07:39)
[2018-07-10] MEDS: METOPROLOL TARTRATE 50 MG TAB PO SCH ×2 (07:39→20:37)
[2018-07-10] MEDS: FERROUS SULFATE 325 MG TAB PO SCH (07:39)
[2018-07-10] MEDS: INSULIN ASPART 100 UNIT/ML 1 ML 10 ML VIAL SQ SCH ×4 (07:40→20:36)
[2018-07-10] MEDS: CLOPIDOGREL 75 MG TAB PO SCH (07:40)
[2018-07-10] MEDS: PREGABALIN 100 MG CAP PO SCH ×2 (07:40→20:38)
[2018-07-10] MEDS: amLODIPine 10 MG TAB PO SCH (07:40)
[2018-07-10] MEDS: ASPIRIN 81 MG PO SCH (07:41)
--- NOTE | 2018-07-10 08:12 | CDI ---
Last Revision, October 2017 Documentation Clarification Form Date: 07/05/2018 3:02:00 PM From: Naima HolleyAndradeKELLE clayton, CCDS Admit Date: 07/04/2018 8:21:00 PM Patient Name: Gokul Lomas Visit Number: [id number] Discharge Date: ATTENTION: The Clinical Documentation Specialists (CDI) and [facility] Coding Staff appreciate your assistance in clarifying documentation. Please respond to the clarification below the line at the bottom and electronically sign. The CDI & [facility] Coding staff will review the response and follow-up if needed. Please note: Queries are made part of the Legal Health Record. If you have any questions, please contact the author of this message via ITS. Mallorie Weems MD 67 yo male, admitted with NSTEMI and Atrial fibrillation, possible new onset. Cardiology was consulted for non-Q-wave myocardial infarction. History/Risk Factors: CAD, SD status post CABG, CVA with left side deficits, former smoker, Hyperlipidemia, DM and Hypertension Clinical Indicators: Admitted with chest pain & found to have had NSTEMI and per ER EKG: Atrial fibrillation. EKG/telemetry: R 101 Atrial fibrillation w/RVR, Left axis deviation, left ventricular hypertrophy w/QRS widening, old infarct. Heart rate: 49 - 44 Treatment: IV Lopressor, Heparin drip, Nitro drip, IV Mag Sulf, O2 2Lnc. In your professional opinion, can you please clarify the type of atrial fibrillation, if known? Chronic/Permanent Paroxysmal Persistent Other, please specify Unable to determine Please continue to document in your progress notes and discharge summary in order to capture severity of illness and risk of mortality. Include clinical findings that support your diagnosis. MTDD
--- NOTE | 2018-07-10 08:29 | XR ---
EXAMINATION TYPE: XR chest 1V portable DATE OF EXAM: 07/10/2018 COMPARISON: Prior chest x-ray 07/09/2018 HISTORY: Pulmonary edema TECHNIQUE: Single frontal view of the chest is obtained. FINDINGS: Patient is post median sternotomy. Cardiac mediastinal silhouette, pulmonary vascularity a nd matthew show similar appearance. No significant airspace disease, pneumothorax, or pleural effusion. Interstitium is mildly increased. IMPRESSION: Correlate for pulmonary venous hypertension and interstitial edema, there may be some sl ight interval improvement in aeration, volume status. There are differences in technique however.
[2018-07-10] MEDS: INSULIN DETEMIR 100 UNIT/ML 10 ML VIAL SQ SCH (08:42)
--- NOTE | 2018-07-10 10:48 | P.PN ---
Subjective Progress Note Date: 07/10/18 Principal diagnosis: Acute hypoxic respiratory failure secondary to cardiogenic pulmonary edema with acute non-ST elevation myocardial infarction 67-year-old male patient who came into the ICU with acute hypoxic respiratory failure. The patient was found to be profoundly hypoxic on the telemetry unit and the patient was placed on a high flow oxygen and subsequently he is placed on a BiPAP at a pressure of 12/5 cm of water and FiO2 of 100% and he got moved to the intensive care unit. The patient is known to have coronary artery disease. He underwent coronary artery bypass surgery back in 2016 and he underwent four-vessel bypass surgery that was done by Dr. Nathan Moeller. Patient underwent SANTOS to LAD saphenous vein graft to OM 1 OM 2 and distal RCA. Subsequently also underwent aortic TAVR. The patient is also known to have multiple medical problems including previous history of CVA and residual left- sided weakness, diabetes mellitus, hypertension and hyperlipidemia and is a chronic smoker continues to smoke cigarettes. Over the past 3 days the patient was having some altered mentation. He was on and off found by family members to be confused. Subsequently he started having intermittent chest pain. Apparently was having symptoms of heartburn and he was over utilizing Tums and he was taking Tums tablet up to 10 tablets on a daily basis. He was not getting much relief. He came into the hospital and in the ED the patient was found to have a BP of 190/80 with a pulse ox of 98% on 2 L and a heart rate of 120 irregular consistent with atrial fibrillation and rapid ventricular response. The patient also had EKG changes with some nonspecific ST/ST segment abnormalities and depression in the lateral leads. [id number] in for acute non-ST segment elevation myocardial infarction and troponin peaked at 27. The patient also developed an acute kidney injury. His calcium level was at 14. He was started on IV heparin. He was also started on nitroglycerin drip for blood pressure control. He is current rhythm is sinus bradycardia with occasional brief junctional rhythms. The patient is free of any chest pain. His mental status is still altered yet the patient is not agitated. He is following simple commands. Moving all 4 extremities with some known left- sided weakness compared to the right because of previous CVA. His chest x-ray was essentially within normal limits at the time of admission and subsequently developed at the pulmonary infiltrates consistent with acute pulmonary edema. Echo of the heart showed a preserved LV function without any significant valvular abnormalities. A Araujo catheter was inserted and immediately fell and 350 mL of urine output was obtained. The patient was also started on IV Lasix and currently receiving Lasix 40 mg IV push every 12 hours. Pulses are palpable in lower extremities bilaterally. Abdomen is at the bedside and I did ask discussion with the patient's daughter and the . They told me that the patient did not want any intubation mechanical ventilation. BiPAP was okay by them. Per family's wishes the patient is a DNR/DNI CODE STATUS. Note that the patient also has history of prostate cancer yet this is localized and nonmetastatic at this stage and the hypercalcemia is unlikely to be related to his prostate cancer. On today's evaluation of 07/07/2018, the patient is much more comfortable and less shortness of breath compared to yesterday. He was taken off the BiPAP earlier this morning and currently is on 6 L of oxygen by nasal cannula. He did diuresed with IV Lasix and the patient's chest x-ray shows improvement in the volume status although there is some underlying ongoing pulmonary edema. He is free of any chest pain. He remains on IV heparin. He remains on IV nitroglycerin. Blood pressure is still somewhat elevated. His sinus mechanism still present. He is somewhat bradycardic with a heart rate in the mid 50s. No chest pain. Troponin is been dropping down and downtrending. No fever. No chills. No altered mentation and is following commands and answering questions. He is demonstrating significant motor weakness both in upper and lower extremities. Today's creatinine is at 2.3. Troponin is downtrending is down to 6.8. On 07/08/2018, the patient is feeling less short of breath compared to yesterday. He spent the night on the BiPAP and currently is on 8 L which I was able to cut down to 5 L and we're the process of weaning this patient's FiO2. Chest x-ray shows ongoing improvement and the pulmonary edema. The patient is free of any chest pain. Remains on IV nitroglycerin at 5 mics and remains on IV heparin. The patient is producing adequate amount of urine output and he is a negative fluid balance as being on Lasix 40 mg IV push every 12 hours. Creatinine is still stable at 2.3. He is free of any chest pain. His calcium level is also normalized. Nephrology is on the case. He is still extremely weak yet there is no altered mentation on today's evaluation. On 07/09/2018, the patient is awake. I was told that he had a episode of confusion yesterday with subsequently recovered and he is back to normal mentation this morning. Less short of breath. I cut him down to 3 L about 2 by nasal cannula. Chest x-ray showed improvement in the pulmonary edema and follow-up chest x-ray today shows further improvement. He has produced good amount of urine output while being on IV Lasix. Is a negative fluid balance of at least 2.5 L for yesterday. No chest pain. IV heparin was discontinued. Nitroglycerin was discontinued. He is on empiric antibiotic coverage with IV Zosyn. Hemodynamically stable. No cardiac arrhythmias noted. Renal function impaired yesterday but with a creatinine of 2.1. Reevaluated today on 07/10/2018, patient seems to be doing relatively well, he is hemodynamically stable, denies any shortness of breath, his chest x-ray seems to show significant improvement. Urine output seems to be reasonable. Patient continues to have intermittent episodes of atrial fibrillation, but hemodynamically stable, and that is being addressed by cardiology. Absent reviewed hemoglobin is 8.9 electrolytes are relatively normal BUN however is 25 creatinine is 1.80, renal profile seems to be steadily improving since admission. Objective - Vital Signs Vital signs: Vital Signs Temp 98 F 07/10/18 08:00 Pulse 94 07/10/18 10:00 Resp 14 07/10/18 10:00 BP 133/62 07/10/18 10:00 Pulse Ox 94 L 07/10/18 10:00 Intake & Output 07/09/18 07/10/18 07/10/18 18:59 06:59 18:59 Intake Total 1920 120 212.5 Output Total 1775 1970 1075 Balance 145 -1850 -862.5 Weight 86.4 kg 84.5 kg Intake: IV 140 120 212.5 .9 40 120 Magnesium Sulfate-D5w Pmx 200 1 gm In Dextrose/Water 1 100ml.bag @ 100 mls/hr IVPB Q1H [facility] Rx#: [id number] Piperacillin-Tazobactam 3 100 12.5 .375 gm In Dextrose/Water 1 50ml.bag @ 12.5 mls/hr IVPB Q8HR [facility] Rx#: [id number] Intake, IV Titration 200 Amount Potassium Chloride 20 meq 200 In Water For Injection 1 100ml.bag @ 50 mls/hr IVPB Q2HR [facility] Rx#: [id number] Oral 1580 Output: Urine 1775 1970 1075 Other: Voiding Method Indwelling Catheter Indwelling Catheter Indwelling Catheter # Bowel Movements 0 0 - Exam Gen. appearance the patient is in no form of respiratory distress.. Follows instruction properly, but seems to be relatively slow. Head exam was generally normal. There was no scleral icterus or corneal arcus. Mucous membranes were moist. Neck was supple and without jugular venous distension, thyromegaly, or carotid bruits. Carotids were easily palpable bilaterally. There was no adenopathy. Lungs sounds are diminished bilaterally no crackles, no rhonchi and no wheezes. Heart sounds are regular, somewhat bradycardic, so no significant murmurs appreciated. No right ventricular heave or thrill. Abdominal exam revealed normal bowel sounds. The abdomen was soft, non-tender, and without masses, organomegaly, or appreciable enlargement of the abdominal aorta. Examination of the extremities revealed easily palpable radial, femoral and pedal pulses. There was no cyanosis, clubbing or edema. Examination of the skin revealed no evidence of significant rashes, suspicious appearing nevi or other concerning lesions. Neurologically, follows some simple commands. Slow to respond. - Labs CBC & Chem 7: 07/10/18 04:30 07/10/18 04:30 Labs: Abnormal Lab Results - Last 24 Hours (Table) 07/09/18 07/09/18 07/09/18 Range/Units 12:13 16:52 21:09 RBC (4.30-5.90) m/uL Hgb (13.0-17.5) gm/dL Hct (39.0-53.0) % MCV (80.0-100.0) fL MCH (25.0-35.0) pg Plt Count (150-450) k/uL Lymphocytes # (1.0-4.8) k/uL Chloride (98-107) mmol/L BUN (9-20) mg/dL Creatinine (0.66-1.25) mg/dL Glucose (74-99) mg/dL POC Glucose (mg/dL) 195 H 219 H 190 H (75-99) mg/dL Calcium (8.4-10.2) mg/dL Phosphorus (2.5-4.5) mg/dL 07/10/18 07/10/18 Range/Units 04:30 04:30 RBC 2.32 L (4.30-5.90) m/uL Hgb 8.9 L (13.0-17.5) gm/dL Hct 26.5 L (39.0-53.0) % MCV 114.4 H (80.0-100.0) fL MCH 38.3 H (25.0-35.0) pg Plt Count 493 H (150-450) k/uL Lymphocytes # 0.6 L (1.0-4.8) k/uL Chloride 108 H (98-107) mmol/L BUN 25 H (9-20) mg/dL Creatinine 1.80 H (0.66-1.25) mg/dL Glucose 65 L (74-99) mg/dL POC Glucose (mg/dL) (75-99) mg/dL Calcium 8.0 L (8.4-10.2) mg/dL Phosphorus 2.4 L (2.5-4.5) mg/dL Assessment and Plan Assessment: 1 acute hypoxic history failure, mainly secondary to cardiogenic pulmonary edema in the setting of an acute non-ST segment elevation myocardial infarction. The patient continues to improve. Oxygenation is improved and is down to 3 L about 2 by nasal cannula and the patient is taken off the BiPAP. Chest x-ray shows improvement in the volume status. 2 coronary artery disease with previous four-vessel bypass surgery 3 acute non-ST segment elevation myocardial infarction with secondary chest pain 4 acute kidney injury, improving the creatinine is down to 1.8 5 acute hypercalcemia likely to excessive intake of Tums on outpatient basis, improving and the calcium level is down trending, and inspect his baseline. 6 previous history aortic valve replacement TAVR 7 atrial fibrillation of a new onset, converted into normal sinus rhythm, currently in sinus mechanism 8 previous history of CVA 9 diabetes mellitus 10 diabetic peripheral neuropathy 11 peripheral vascular disease 12 hematologic disorder maintained on Hydrea on outpatient basis exact type is not known to me at this point 13 history of chronic iron deficiency anemia 14 prostate cancer 15 hypothyroidism 16 DNR/DNI CODE STATUS Recommendation: Continue present treatment plan including diuretics, continue to monitor renal profile, continue to monitor cardiac status and his atrial fibrillation, I would clear him to be transferred to a monitor bed on selective if cleared by cardiology today. We will continue to follow. Time with Patient: Less than 30
[2018-07-10 12:08] LABS: Glucose,Whole Blood 210 mg/dL (75-99)
--- NOTE | 2018-07-10 12:35 | P.CONS ---
History of Present Illness - Chief Complaint Cardiac debility - History of Present Illness I had the opportunity to see patient for inpatient rehab consultation with regard to cardiac debility. He was admitted to [facility] July 04 with non- STEMI and atrial fibrillation for which is seen by cardiology. Also seen by nephrology for acute kidney injury Dr. Manley for hypoxic respiratory failure. Chest x-rays followed for pulmonary venous congestion and edema. PT and OT prescribed. Previous functional history as elicited from patient: 67-year-old right-handed white male who is lives in a first-floor apartment with . Retired. Describes does cooking, laundry, driving. Patient independent with standing shower and gait with 4 wheeled walker. Smokes a pack per day and doesn 't drink. Does not have regular PMD. Family history both parents apparently had multiple medical issues. Review of Systems Review of systems: ENT: Denies sneezes or discharge. Eyes: Denies discharge or photophobia. Cardiac: Denies chest pain or palpitation. Pulmonary: Perhaps mild shortness of breath. Gastrointestinal: Denies nausea, emesis, constipation, diarrhea. Genitourinary: Denies discharge or frequency. Musculoskeletal: Denies muscle or bone aches. Neurologic: At least mild generalized weakness. Endocrine: Denies shakes or sweats. Oncology: Denies cancers. Dermatologic: Denies rash, itching, pruritus. ALLERGY/immunology: Denies sneezes, rashes. Past Medical History Past Medical History: CVA/TIA, Diabetes Mellitus, Hyperlipidemia, Hypertension, Myocardial Infarction (PA), Neurologic Disorder, Pneumonia, Seizure Disorder, Thyroid Disorder Additional Past Medical History / Comment(s): Coronary artery disease, four- vessel bypass surgery, aortic valve replacement TAVR, prostate cancer, previous CVA, diabetes mellitus, hypertension, hyperlipidemia, chronic anemia, chronic smoker, previous history of agent orange exposure, there is history of skin disease of an unknown type, hypothyroidism, iron deficiency anemia, peripheral vascular disease, hematologic disease of an unknown type at this point in time and the patient has been seen by Dr. hidalgo and the patient has been maintained on Hydrea, peripheral neuropathy on Lyrica, Last Myocardial Infarction Date:: 02/17/2016 History of Any Multi-Drug Resistant Organisms: None Reported Past Surgical History: Coronary Bypass/CABG, Heart Catheterization, Orthopedic Surgery Additional Past Surgical History / Comment(s): 02/19/16 cardiac cath, 02/24/16 CABG quadrupal with aortic valve replacement (TAVR), RT HAND INDEX FINGER BONE CHIP REMOVED, RT WRIST(JAMMED) PT STATED THEY CUT THE BONE AND REALIGNED IT, colonoscopy, bilateral cataract removals/lens implants. Past Anesthesia/Blood Transfusion Reactions: No Reported Reaction Smoking Status: Former smoker - Past Family History Father Family Medical History: Coronary Artery Disease (CAD) Additional Family Medical History / Comment(s): VASCULAR PROBLEMS/valve replacement. Mother Family Medical History: Coronary Artery Disease (CAD) Additional Family Medical History / Comment(s): VASCULAR PROBLEMS HAD PIG VALVE. Medications and Allergies Home Medications Medication Instructions Recorded Confirmed Type Aspirin EC [Ecotrin] 325 mg PO DAILY 02/17/16 07/04/18 History Hydroxyurea [Hydrea] 1,000 mg PO MOTUWETHFR 02/17/16 07/04/18 History Insulin Glargine [Lantus] 35 unit SQ DAILY 02/17/16 07/04/18 History Metoprolol Tartrate [Lopressor] 50 mg PO BID 02/17/16 07/04/18 History amLODIPine BESYLATE [Norvasc] 10 mg PO DAILY 02/17/16 07/04/18 History metFORMIN HCL [Glucophage] 500 mg PO BID 02/17/16 07/04/18 History Clopidogrel [Plavix] 75 mg PO DAILY 03/11/16 07/04/18 History Ferrous Sulfate [Iron (65 MG 325 mg PO DAILY 03/11/16 07/04/18 History Elemental)] Hydroxyurea 500 mg PO SUSA 06/14/18 07/04/18 History Levothyroxine Sodium [Synthroid] 125 mcg PO DAILY 06/14/18 07/04/18 History Atorvastatin [Lipitor] 20 mg PO HS 07/04/18 07/04/18 History Pregabalin [Lyrica] 200 mg PO BID 07/04/18 07/04/18 History Venlafaxine HCl [Effexor XR] 75 mg PO HS 07/04/18 07/04/18 History prednisoLONE ACETATE 1% OPHTH 1 drops RIGHT EYE Q4HR 07/04/18 07/04/18 History [Pred Forte 1%] Allergies Allergy/AdvReac Type Severity Reaction Status Date / Time No Known Allergies Allergy Verified 07/04/18 19:29 Physical Exam Vitals: Vital Signs Temp Pulse Resp BP Pulse Ox 07/10/18 10:00 94 14 133/62 94 L 07/10/18 09:00 92 16 125/77 94 L 07/10/18 08:40 96 07/10/18 08:00 98 F 86 16 135/64 95 07/10/18 07:00 61 13 134/65 95 07/10/18 06:00 61 14 156/69 95 07/10/18 05:00 59 L 15 144/59 92 L 07/10/18 04:00 62 15 144/74 96 07/10/18 03:00 66 16 144/57 96 07/10/18 02:00 58 L 15 159/64 95 07/10/18 01:00 59 L 15 158/64 94 L 07/10/18 00:00 97.8 F 55 L 15 145/56 96 07/09/18 23:00 60 16 150/70 95 07/09/18 22:00 59 L 15 145/52 91 L 07/09/18 21:00 61 14 158/64 95 07/09/18 20:00 98.5 F 65 15 160/68 95 07/09/18 19:00 62 15 140/55 96 07/09/18 18:00 61 14 118/66 95 07/09/18 17:00 97.2 F L 59 L 17 139/60 95 07/09/18 16:00 136/61 95 07/09/18 15:00 60 14 121/51 95 07/09/18 14:00 62 15 141/61 97 07/09/18 13:00 69 19 145/112 97 Intake and Output 07/09/18 07/10/18 07/10/18 22:59 06:59 14:59 Intake Total 550 90 225.0 Output Total 875 1620 1375 Balance -325 -1530 -1150.0 Intake: IV 90 90 225.0 .9 40 90 Magnesium Sulfate-D5w Pmx 200 1 gm In Dextrose/Water 1 100ml.bag @ 100 mls/hr IVPB Q1H [facility] Rx#: [id number] Piperacillin-Tazobactam 3 50 25.0 .375 gm In Dextrose/Water 1 50ml.bag @ 12.5 mls/hr IVPB Q8HR [facility] Rx#: [id number] Intake, IV Titration 100 Amount Potassium Chloride 20 meq 100 In Water For Injection 1 100ml.bag @ 50 mls/hr IVPB Q2HR [facility] Rx#: [id number] Oral 360 Output: Urine 875 1620 1375 Other: Voiding Method Indwelling Catheter Indwelling Catheter Indwelling Catheter # Bowel Movements 0 0 Weight 86.4 kg 84.5 kg Skin: Good color, texture, turgor. General: Medium build and comfortable appearance. Head: Normocephalic, atraumatic. Eyes: Symmetric. Pupils equal round. Ears: Symmetric. Hearing within normal limits. Mouth: Clear. Neck: Supple. Carotid without bruit. Cardiac: Regular rate and rhythm. Lungs: Clear anteriorly and posteriorly. Abdomen: Soft active nontender. Extremities: Normal tone. Neurological: Mental status: Alert, cooperative, pleasant. Cranial nerves: Symmetric facial tone and trapezius. Motor: Normal strength and isolation all 4 limbs. Sensation: Intact throughout. DTRs: Symmetric and equal throughout. Mobility: Currently in ICU and did not attempt to sit or stand. Results CBC & Chem 7: 07/10/18 04:30 07/10/18 04:30 Labs: Abnormal Lab Results - Last 24 Hours (Table) 07/09/18 07/09/18 07/10/18 Range/Units 16:52 21:09 04:30 RBC 2.32 L (4.30-5.90) m/uL Hgb 8.9 L (13.0-17.5) gm/dL Hct 26.5 L (39.0-53.0) % MCV 114.4 H (80.0-100.0) fL MCH 38.3 H (25.0-35.0) pg Plt Count 493 H (150-450) k/uL Lymphocytes # 0.6 L (1.0-4.8) k/uL Chloride (98-107) mmol/L BUN (9-20) mg/dL Creatinine (0.66-1.25) mg/dL Glucose (74-99) mg/dL POC Glucose (mg/dL) 219 H 190 H (75-99) mg/dL Calcium (8.4-10.2) mg/dL Phosphorus (2.5-4.5) mg/dL 07/10/18 07/10/18 Range/Units 04:30 12:06 RBC (4.30-5.90) m/uL Hgb (13.0-17.5) gm/dL Hct (39.0-53.0) % MCV (80.0-100.0) fL MCH (25.0-35.0) pg Plt Count (150-450) k/uL Lymphocytes # (1.0-4.8) k/uL Chloride 108 H (98-107) mmol/L BUN 25 H (9-20) mg/dL Creatinine 1.80 H (0.66-1.25) mg/dL Glucose 65 L (74-99) mg/dL POC Glucose (mg/dL) 210 H (75-99) mg/dL Calcium 8.0 L (8.4-10.2) mg/dL Phosphorus 2.4 L (2.5-4.5) mg/dL Assessment and Plan (1) Atrial fibrillation with RVR Current Visit: Yes Status: Acute Code(s): I48.91 - UNSPECIFIED ATRIAL FIBRILLATION SNOMED Code(s): 826197348643652 (2) NSTEMI (non-ST elevation myocardial infarction) Current Visit: Yes Status: Acute Code(s): I21.4 - NON-ST ELEVATION (NSTEMI) MYOCARDIAL INFARCTION SNOMED Code(s): 158052776 (3) Encephalopathy Current Visit: No Status: Acute Code(s): G93.40 - ENCEPHALOPATHY, UNSPECIFIED SNOMED Code(s): 21490652 Plan: Impression: 1. Cardiac debility. 2. Non-STEMI. 3. Active fibrillation. 4. Acute kidney injury. 5. Encephalopathy with history of cerebellar stroke. 6. Hypertension. 7. Diabetes. 8. Coronary disease with history of PA. 9. History of seizure disorder. Comments and plan: At this time PT and OT are ongoing. We'll add speech therapy for communication and cognition.
--- NOTE | 2018-07-10 14:06 | P.PN ---
Subjective Progress Note Date: 07/10/18 This is a 67-year-old gentleman with history of ischemic heart disease and diverticular replacement was admitted to the hospital with chest pain and evidence of acute renal failure related to hypercalcemia. His troponin went up to 30. However EKG did not reveal any acute changes. His echocardiogram showed preserved LV function. He was treated with IV Lasix and other measures for treatment of hypercalcemia. His hypercalcemia is corrected. Etiology of the hypercalcemia is felt to be secondary to extra Tums and vitamin D preparation that he was taking. His creatinine down to 1.8. Patient is feeling better. He did not have any chest pain. His hemoglobin is chronically low. He is being transferred to telemetry unit. As patient is critically stable. We'll continue medical therapy. I will discuss with Dr. VC Weber about doing cardiac catheterization to rule out any progression of the disease. Objective - Vital Signs Vital signs: Vital Signs Temp 96.9 F L 07/10/18 12:00 Pulse 87 07/10/18 12:00 Resp 13 07/10/18 12:00 BP 149/64 07/10/18 12:00 Pulse Ox 97 07/10/18 12:00 Intake & Output 07/09/18 07/10/18 07/10/18 18:59 06:59 18:59 Intake Total 1920 120 225.0 Output Total 1774 1969 137 Balance 145 -1850 -1150.0 Weight 86.4 kg 84.5 kg Intake: IV 140 120 225.0 .9 40 120 Magnesium Sulfate-D5w Pmx 200 1 gm In Dextrose/Water 1 100ml.bag @ 100 mls/hr IVPB Q1H [facility] Rx#: [id number] Piperacillin-Tazobactam 3 100 25.0 .375 gm In Dextrose/Water 1 50ml.bag @ 12.5 mls/hr IVPB Q8HR [facility] Rx#: [id number] Intake, IV Titration 200 Amount Potassium Chloride 20 meq 200 In Water For Injection 1 100ml.bag @ 50 mls/hr IVPB Q2HR [facility] Rx#: [id number] Oral 1580 Output: Urine 1774 1969 1375 Other: Voiding Method Indwelling Catheter Indwelling Catheter Indwelling Catheter # Bowel Movements 0 0 - Exam GENERAL EXAM: Patient is alert and oriented and doesn't appear to be in any acute distress HEENT: Normocephalic. Normal reaction of pupils, equal size, normal range of extraocular motion. No erythema or exudates in the throat. NECK: No masses, no nuchal rigidity. CHEST: No chest wall deformity. LUNGS: Equal air entry with no crackles or wheeze. HEART: S1 and S2 normal with no audible mumurs or gallops. Regular rhythm, femorals equal on both sides.. ABDOMEN: No hepatosplenomegaly, normal bowel sounds, no guarding or rigidity. SKIN: No rashes CENTRAL NERVOUS SYSTEM: No focal deficits. EXTREMITIES: No cyanosis, clubbing or edema. - Labs CBC & Chem 7: 07/10/18 04:30 07/10/18 04:30 Labs: Abnormal Lab Results - Last 24 Hours (Table) 07/09/18 07/09/18 07/10/18 Range/Units 16:52 21:09 04:30 RBC 2.32 L (4.30-5.90) m/uL Hgb 8.9 L (13.0-17.5) gm/dL Hct 26.5 L (39.0-53.0) % MCV 114.4 H (80.0-100.0) fL MCH 38.3 H (25.0-35.0) pg Plt Count 493 H (150-450) k/uL Lymphocytes # 0.6 L (1.0-4.8) k/uL Chloride (98-107) mmol/L BUN (9-20) mg/dL Creatinine (0.66-1.25) mg/dL Glucose (74-99) mg/dL POC Glucose (mg/dL) 219 H 190 H (75-99) mg/dL Calcium (8.4-10.2) mg/dL Phosphorus (2.5-4.5) mg/dL 07/10/18 07/10/18 Range/Units 04:30 12:06 RBC (4.30-5.90) m/uL Hgb (13.0-17.5) gm/dL Hct (39.0-53.0) % MCV (80.0-100.0) fL MCH (25.0-35.0) pg Plt Count (150-450) k/uL Lymphocytes # (1.0-4.8) k/uL Chloride 108 H (98-107) mmol/L BUN 25 H (9-20) mg/dL Creatinine 1.80 H (0.66-1.25) mg/dL Glucose 65 L (74-99) mg/dL POC Glucose (mg/dL) 210 H (75-99) mg/dL Calcium 8.0 L (8.4-10.2) mg/dL Phosphorus 2.4 L (2.5-4.5) mg/dL Assessment and Plan (1) Hypercalcemia Current Visit: Yes Status: Acute Code(s): E83.52 - HYPERCALCEMIA SNOMED Code(s): 43320290 (2) Atrial fibrillation with RVR Current Visit: Yes Status: Acute Code(s): I48.91 - UNSPECIFIED ATRIAL FIBRILLATION SNOMED Code(s): 057038820145234 (3) NSTEMI (non-ST elevation myocardial infarction) Current Visit: Yes Status: Acute Code(s): I21.4 - NON-ST ELEVATION (NSTEMI) MYOCARDIAL INFARCTION SNOMED Code(s): 598390901 (4) Anemia Current Visit: No Status: Acute Code(s): D64.9 - ANEMIA, UNSPECIFIED SNOMED Code(s): 894758544 (5) Acute kidney injury Current Visit: Yes Status: Acute Code(s): N17.9 - ACUTE KIDNEY FAILURE, UNSPECIFIED SNOMED Code(s): 59268818 Plan: We'll continue current medical therapy. Transfer to telemetry unit. Increase activity. Will discuss with Dr. VC Weber regarding possible cardiac catheterization
[2018-07-10 16:52] LABS: Glucose,Whole Blood 211 mg/dL (75-99)
--- NOTE | 2018-07-10 18:34 | P.PN ---
Subjective Progress Note Date: 07/10/18 Principal diagnosis: This is a 67-year-old male seen in consultation because of hypercalcemia and acute kidney injury, hypercalcemia is from large amounts of Tums he was taking as well as some vitamin D preparation. He came in with chest pain, acute DE, and is currently pain free off nitroglycerin drip, (his troponin went up to 30 and he has an acute DE). His admission calcium was 14.4 and creatinine of 2.49. Baseline creatinine is 1.2 with a GFR of 62 and permanent. His calcium is responded to the 2 mg of Zometa and IV fluids with Lasix. IV fluids have been discontinued. On 07/10/2018 he is on room air comfortable awake and alert continues to be on Lasix with good urine output of 3745 mL of the last 24 hours. He remains on nasal cannula. He says his appetite is good, but does not like the food. His family says at times is confused but today has been better. No fever chills cough shortness of breath. 0 Objective - Vital Signs Vital signs: Vital Signs Temp 97.8 F 07/10/18 16:00 Pulse 85 07/10/18 16:00 Resp 34 H 07/10/18 16:00 BP 121/56 07/10/18 16:00 Pulse Ox 98 07/10/18 17:22 Intake & Output 07/09/18 07/10/18 07/10/18 18:59 06:59 18:59 Intake Total 1920 120 287.5 Output Total 1774 1969 172 Balance 145 -1850 -1437.5 Weight 86.4 kg 84.5 kg Intake: IV 140 120 287.5 .9 40 120 50 Magnesium Sulfate-D5w Pmx 200 1 gm In Dextrose/Water 1 100ml.bag @ 100 mls/hr IVPB Q1H [facility] Rx#: [id number] Piperacillin-Tazobactam 3 100 37.5 .375 gm In Dextrose/Water 1 50ml.bag @ 12.5 mls/hr IVPB Q8HR [facility] Rx#: [id number] Intake, IV Titration 200 Amount Potassium Chloride 20 meq 200 In Water For Injection 1 100ml.bag @ 50 mls/hr IVPB Q2HR [facility] Rx#: [id number] Oral 1580 Output: Urine 1774 1969 1725 Other: Voiding Method Indwelling Catheter Indwelling Catheter Indwelling Catheter # Bowel Movements 0 0 On examination is awake alert oriented. HEENT exam no JVP neck is supple no facial asymmetry Lungs clear to auscultation with an occasional crackle at bases. No dullness to percussion. Heart sounds are unremarkable except for irregular heartbeat and on the monitor is showing multiple PACs. No murmur rub gallop is heard Abdomen soft nontender no masses felt Extremity exam was no edema Neurologically awake alert oriented he has remote mild left-sided weakness. - Labs CBC & Chem 7: 07/10/18 04:30 07/10/18 04:30 Labs: Abnormal Lab Results - Last 24 Hours (Table) 07/09/18 07/10/18 07/10/18 Range/Units 21:09 04:30 04:30 RBC 2.32 L (4.30-5.90) m/uL Hgb 8.9 L (13.0-17.5) gm/dL Hct 26.5 L (39.0-53.0) % MCV 114.4 H (80.0-100.0) fL MCH 38.3 H (25.0-35.0) pg Plt Count 493 H (150-450) k/uL Lymphocytes # 0.6 L (1.0-4.8) k/uL Chloride 108 H (98-107) mmol/L BUN 25 H (9-20) mg/dL Creatinine 1.80 H (0.66-1.25) mg/dL Glucose 65 L (74-99) mg/dL POC Glucose (mg/dL) 190 H (75-99) mg/dL Calcium 8.0 L (8.4-10.2) mg/dL Phosphorus 2.4 L (2.5-4.5) mg/dL 07/10/18 07/10/18 Range/Units 12:06 16:50 RBC (4.30-5.90) m/uL Hgb (13.0-17.5) gm/dL Hct (39.0-53.0) % MCV (80.0-100.0) fL MCH (25.0-35.0) pg Plt Count (150-450) k/uL Lymphocytes # (1.0-4.8) k/uL Chloride (98-107) mmol/L BUN (9-20) mg/dL Creatinine (0.66-1.25) mg/dL Glucose (74-99) mg/dL POC Glucose (mg/dL) 210 H 211 H (75-99) mg/dL Calcium (8.4-10.2) mg/dL Phosphorus (2.5-4.5) mg/dL Assessment and Plan Assessment: Impression 1. Acute kidney injury secondary to hypercalcemia. Creatinine is starting to trend down from 2.49 milligram to 2.1 > 1.8 mg this morning. 2. Hypercalcemia secondary to excessive Tums intake, as well as some kind of a vitamin D pill 3 times a week although his not listed on his med list. Calcium is down to 8.0. His off of the IV saline. 3. Admitted with chest pain acute DE troponins 30. Pain-free off nitroglycerin drip. Troponin down to 6.8 as of 07/07/2018 and has had history of of coronary artery bypass graft with aortic valve replacement on 02/24/2016 at [facility]. 5. Left-sided CVA with residual weakness 6. Anemia, hemoglobin went down from 11.4-8.5 > 8.9 > 9.3 > 8.9 , no obvious GI bleed. Some of it is from hydration and dilution 7. Congestive heart failure, on BiPAP , improved to nasal cannula but chest x- ray still shows CHF Recommendation. 1. Continue IV Lasix 40 mg every 12, his responded with urine output of 3.7 L 2. Monitor calcium and renal function 3. Monitor I's and O's strictly. 4. Keep blood pressure around 110 to 1:30 6. Avoid any nephrotoxic medications.
--- NOTE | 2018-07-10 19:11 | P.PN ---
Subjective Progress Note Date: 07/10/18 Progress note being dictated for Dr. Dorantes. interval history:this is a 67-year-old gentleman admitted with acute non-STEMI, acute hypoxic respiratory failure, CHF exacerbation, possible pneumonia,acute renal failure and multiple other medical issues.Evaluated by cardiology and patient currently not a candidate for cardiac catheterization with medical therapy being maximized.telemetry reporting junctional alternating with sinus bradycardia, 40's.respiratory status worsening, requiring high 8 Lflow nasal cannula,more lethargic, diaphoretic.creatinine2.4.maintained on nitroglycerin and heparin drips. Denies chest pain.maintained on Zometa with calcium, improving, 11.3. Review of systems:is significantly short of breath,confused, unable to assess at this time. Active Medications Acetaminophen (Tylenol Tab) 650 mg PO Q6HR PRN PRN Reason: Mild Pain or Fever > 100.5 Hydrocodone Bitart/Acetaminophen ([place] 5-325) 1 each PO Q6HR PRN PRN Reason: Pain Alprazolam (Xanax) 0.25 mg PO TID PRN PRN Reason: Anxiety Amlodipine Besylate (Norvasc) 10 mg PO DAILY [facility] Last Admin: 07/06/18 08:39 Dose: 10 mg Aspirin (Aspirin) 81 mg PO DAILY [facility] Atorvastatin Calcium (Lipitor) 80 mg PO HS [facility] Clopidogrel Bisulfate (Plavix) 75 mg PO DAILY [facility] Last Admin: 07/06/18 08:39 Dose: 75 mg Ferrous Sulfate (Feosol) 325 mg PO DAILY [facility] Last Admin: 07/06/18 08:30 Dose: Not Given Furosemide (Lasix) 20 mg IV Q12HR [facility] Last Admin: 07/06/18 11:54 Dose: 20 mg Heparin Sodium (Porcine) (Heparin) 0 unit IV PER PROTOCOL PRN; Protocol PRN Reason: Low PTT Last Admin: 07/05/18 17:14 Dose: 4,000 unit Heparin Sodium/Sodium Chloride (25,000 unit/ Sodium Chloride) 500 mls @ 19.99 mls/hr IV .Q24H [facility]; Protocol Last Titration: 07/06/18 07:01 Dose: 13 units/kg/hr, 22.4 mls/hr Nitroglycerin/Dextrose 50 mg/ (IV Solution) 250 mls @ 1.5 mls/hr IV .Q24H [facility]; Protocol Last Admin: 07/05/18 21:38 Dose: 5 mcg/min, 1.5 mls/hr Insulin Aspart (Novolog) 0 unit SQ ACHS [facility]; Protocol Last Admin: 07/06/18 16:39 Dose: Not Given Insulin Detemir (Levemir) 35 unit SQ DAILY [facility] Last Admin: 07/06/18 08:41 Dose: Not Given Levothyroxine Sodium (Synthroid) 125 mcg PO DAILY@0630 [facility] Last Admin: 07/06/18 06:26 Dose: Not Given Metoprolol Tartrate (Lopressor) 50 mg PO BID [facility] Last Admin: 07/06/18 08:46 Dose: Not Given Morphine Sulfate (Morphine Oral Shikha 2mg/Ml) 12 mg PO Q4HR PRN PRN Reason: Severe Pain Naloxone HCl (Narcan) 0.2 mg IV Q2M PRN PRN Reason: Opioid Reversal Pantoprazole Sodium (Protonix) 40 mg PO AC-BRKFST [facility] Last Admin: 07/06/18 06:26 Dose: Not Given Prednisolone Acetate (Pred Forte 1%) 1 drops RIGHT EYE Q4HR [facility] Last Admin: 07/06/18 13:05 Dose: Not Given Pregabalin (Lyrica) 200 mg PO BID [facility] Last Admin: 07/06/18 11:54 Dose: Not Given Venlafaxine HCl (Effexor Xr) 75 mg PO HS [facility] Last Admin: 07/05/18 19:59 Dose: 75 mg 07/07/2018 transferred yesterday to ICU. Required BiPAP throughout the night. Currently maintaining O2 sats in the low 90s on high flow 6 L nasal cannula. Diuresing well on Lasix IV push with 24-hour I&O reflecting a negative fluid balance. creatinine 2.3. Maintained on heparin and nitroglycerin drips. Weaning of nitroglycerin drip in progress. Tmx 100.4.chest x-ray reporting improvementin time status, pulmonary edema.telemetry sinus bradycardia.troponin trending down. Review of systems: CONSTITUTIONAL: fatigued,fevers, confusion. HEENT: No recent visual problems or hearing problems. Denied any sore throat. CARDIOVASCULAR: No chest pain, no palpitations, no syncope. PULMONARY: Positive shortness of breath, no cough, no hemoptysis. GASTROINTESTINAL: No diarrhea, no nausea, no vomiting, no abdominal pain. Normoactive bowel sounds. NEUROLOGICAL: No headaches, generalized weakness, no numbness. HEMATOLOGICAL: Denies any bleeding or petechiae. GENITOURINARY: Denies any burning micturition, frequency, or urgency. MUSCULOSKELETAL/RHEUMATOLOGICAL: Denies any joint pain, swelling, or any muscle pain. ENDOCRINE: Denies any polyuria or polydipsia. PSYCHIATRIC: No anxiety, no depression The rest of the 14 point review of systems is negative Active Medications Acetaminophen (Tylenol Tab) 650 mg PO Q6HR PRN PRN Reason: Mild Pain or Fever > 100.5 Hydrocodone Bitart/Acetaminophen ([place] 5-325) 1 each PO Q6HR PRN PRN Reason: Pain Alprazolam (Xanax) 0.25 mg PO TID PRN PRN Reason: Anxiety Amlodipine Besylate (Norvasc) 10 mg PO DAILY [facility] Last Admin: 07/07/18 08:21 Dose: 10 mg Aspirin (Aspirin) 81 mg PO DAILY [facility] Last Admin: 07/07/18 08:21 Dose: 81 mg Atorvastatin Calcium (Lipitor) 80 mg PO HS [facility] Last Admin: 07/07/18 20:53 Dose: 80 mg Clopidogrel Bisulfate (Plavix) 75 mg PO DAILY [facility] Last Admin: 07/07/18 08:21 Dose: 75 mg Ferrous Sulfate (Feosol) 325 mg PO DAILY [facility] Last Admin: 07/07/18 08:20 Dose: 325 mg Furosemide (Lasix) 40 mg IV Q12HR [facility] Last Admin: 07/07/18 20:50 Dose: 40 mg Heparin Sodium (Porcine) (Heparin) 0 unit IV PER PROTOCOL PRN; Protocol PRN Reason: Low PTT Last Admin: 07/05/18 17:14 Dose: 4,000 unit Hydralazine HCl (Apresoline) 10 mg IVP Q4HR PRN PRN Reason: Blood Pressure - High Last Admin: 07/07/18 02:12 Dose: 10 mg Heparin Sodium/Sodium Chloride (25,000 unit/ Sodium Chloride) 500 mls @ 19.99 mls/hr IV .Q24H [facility]; Protocol Last Admin: 07/07/18 20:52 Dose: 13 units/kg/hr, 22.4 mls/hr Nitroglycerin/Dextrose 50 mg/ (IV Solution) 250 mls @ 1.5 mls/hr IV .Q24H [facility]; Protocol Last Admin: 07/07/18 20:51 Dose: 5 mcg/min, 1.5 mls/hr Piperacillin/Tazobactam/ (Dextrose 3.375 gm/ IV Solution) 50 mls @ 12.5 mls/hr IVPB Q8HR [facility] Last Admin: 07/07/18 16:42 Dose: 12.5 mls/hr Insulin Aspart (Novolog) 0 unit SQ ACHS [facility]; Protocol Last Admin: 07/07/18 20:50 Dose: 1 unit Insulin Detemir (Levemir) 35 unit SQ DAILY [facility] Last Admin: 07/07/18 08:22 Dose: 35 unit Levothyroxine Sodium (Synthroid) 125 mcg PO DAILY@0630 [facility] Last Admin: 07/07/18 06:34 Dose: 125 mcg Metoprolol Tartrate (Lopressor) 50 mg PO BID [facility] Last Admin: 07/07/18 20:50 Dose: 50 mg Miscellaneous Information (Magnesium Per Protocol) 1 each MISCELLANE DAILY PRN ; Protocol PRN Reason: Per Protocol Miscellaneous Information (Potassium Per Protocol) 1 each MISCELLANE DAILY PRN ; Protocol PRN Reason: Per Protocol Morphine Sulfate (Morphine Oral Shikha 2mg/Ml) 12 mg PO Q4HR PRN PRN Reason: Severe Pain Morphine Sulfate (Morphine Sulfate (Inj)) 2 mg IVP Q4H PRN PRN Reason: Pain/Discomfort Last Admin: 07/06/18 18:34 Dose: 2 mg Naloxone HCl (Narcan) 0.2 mg IV Q2M PRN PRN Reason: Opioid Reversal Pantoprazole Sodium (Protonix) 40 mg PO AC-BRKFST [facility] Last Admin: 07/07/18 08:20 Dose: 40 mg Pregabalin (Lyrica) 200 mg PO BID [facility] Last Admin: 07/07/18 20:49 Dose: 200 mg Venlafaxine HCl (Effexor Xr) 75 mg PO HS [facility] Last Admin: 07/07/18 20:50 Dose: 75 mg 07/10/2018 chest x-ray improving, maintained on Lasix IV push, diuresing well with 24-hour I&O reflecting a negative fluid balance. Denies increase in shortness of breath, maintaining O2 sats in the high 90s on 3 L nasal cannula. Has not required BiPAP at night for the last 2 nights. Telemetry sinus rhythm with paroximal atrial fibrillation. Magnesium 1.9. Patient has been cleared to transfer out of ICU to telemetry floor. Hemoglobin 8.9,. Renal function improving, creatinine 1.8. Potassium 3.5. Potential Cardiac catheterization being discussed per cardiology. Objective - Vital Signs Vital signs: Vital Signs Temp 97.8 F 07/10/18 16:00 Pulse 85 07/10/18 16:00 Resp 34 H 07/10/18 16:00 BP 121/56 07/10/18 16:00 Pulse Ox 98 07/10/18 17:22 Intake & Output 07/09/18 07/10/18 07/10/18 18:59 06:59 18:59 Intake Total 1920 120 287.5 Output Total 1774 1969 172 Balance 145 -1850 -1437.5 Weight 86.4 kg 84.5 kg Intake: IV 140 120 287.5 .9 40 120 50 Magnesium Sulfate-D5w Pmx 200 1 gm In Dextrose/Water 1 100ml.bag @ 100 mls/hr IVPB Q1H [facility] Rx#: [id number] Piperacillin-Tazobactam 3 100 37.5 .375 gm In Dextrose/Water 1 50ml.bag @ 12.5 mls/hr IVPB Q8HR [facility] Rx#: [id number] Intake, IV Titration 200 Amount Potassium Chloride 20 meq 200 In Water For Injection 1 100ml.bag @ 50 mls/hr IVPB Q2HR [facility] Rx#: [id number] Oral 1580 Output: Urine 1774 1969 1724 Other: Voiding Method Indwelling Catheter Indwelling Catheter Indwelling Catheter # Bowel Movements 0 0 - Exam PHYSICAL EXAM: VITAL SIGNS: [as above] GENERAL: sitting up in bed, no acute distress HEENT: Conjunctivae normal. eyes normal.oral mucosa moist NECK: No JVD, No thyroid enlargement. No LNs CARDIOVASCULAR: S1, S2 muffled. bradycardic,systolic murmur RESPIRATION: Breath sounds diminished in the bases. No crackles, rhonchi, or expiratory wheezing ABDOMEN: Soft, nontender . No guarding. no masses palpable. Bowel sounds heard. LEGS: No edema PSYCHIATRY: Alert and oriented -2, cooperative, follows simple commands, slowly. NERVOUS SYSTEM: Diffuse weakness of all extremities, follows simple commands, No focal deficits. - Labs CBC & Chem 7: 07/10/18 04:30 07/10/18 04:30 Labs: Abnormal Lab Results - Last 24 Hours (Table) 07/09/18 07/10/18 07/10/18 Range/Units 21:09 04:30 04:30 RBC 2.32 L (4.30-5.90) m/uL Hgb 8.9 L (13.0-17.5) gm/dL Hct 26.5 L (39.0-53.0) % MCV 114.4 H (80.0-100.0) fL MCH 38.3 H (25.0-35.0) pg Plt Count 493 H (150-450) k/uL Lymphocytes # 0.6 L (1.0-4.8) k/uL Chloride 108 H (98-107) mmol/L BUN 25 H (9-20) mg/dL Creatinine 1.80 H (0.66-1.25) mg/dL Glucose 65 L (74-99) mg/dL POC Glucose (mg/dL) 190 H (75-99) mg/dL Calcium 8.0 L (8.4-10.2) mg/dL Phosphorus 2.4 L (2.5-4.5) mg/dL 07/10/18 07/10/18 Range/Units 12:06 16:50 RBC (4.30-5.90) m/uL Hgb (13.0-17.5) gm/dL Hct (39.0-53.0) % MCV (80.0-100.0) fL MCH (25.0-35.0) pg Plt Count (150-450) k/uL Lymphocytes # (1.0-4.8) k/uL Chloride (98-107) mmol/L BUN (9-20) mg/dL Creatinine (0.66-1.25) mg/dL Glucose (74-99) mg/dL POC Glucose (mg/dL) 210 H 211 H (75-99) mg/dL Calcium (8.4-10.2) mg/dL Phosphorus (2.5-4.5) mg/dL Assessment and Plan Assessment: 1. acute non-STEMI 2.atrial fibrillation with RVR, currently sinus rhythm with paroxysmal afib 3. Acute hypoxic respiratory failure secondary to acute CHF exacerbation, diastolic dysfunction, EF 55-60%, cardiogenic pulmonary edema secondary to acute non-STEMI 4. Hypercalcemia, improving 5. anemia of chronic disease,iron deficient 6. Acute renal failure, possibly prerenal, acute tubular necrosis secondary to hypercalcemia 7. DM II6 diabetes mellitus type 2 8. CAD, history of TAVR,CABG - both in 2016 9. History of CVA, TIA 10. History of nicotine dependence 11. Hypertension 12. Mild to moderate mitral regurgitation plan: Continue on current medication regime ,monitoring and symptomatic treatment. 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 telemetry. Follow closely with multiple consults. Close monitoring of renal function, with repeat labs ordered for a.m. as mentioned above cardiology discussing potential cardiac catheterization. Further recommendations to follow. The impression and plan of care has been dictated as directed. : I performed a history and examination of this patient, discussed the same with the dictator. I agree with the dictator's note ,documented as a scribe. Any additional findings or plans will be noted.
[2018-07-10 20:26] LABS: Glucose,Whole Blood 163 mg/dL (75-99)
[2018-07-10] MEDS: ATORVASTATIN 80 MG TAB PO SCH (20:36)
[2018-07-10] MEDS: VENLAFAXINE HCL ER 75 MG CAP PO SCH (20:38)
[2018-07-11] MEDS: PIPERACILLIN-TAZOBACTAM 3.375 GM in DEXTROSE/WATER 1 50ML.BAG IVPB SCH ×4 (00:14→23:28)
[2018-07-11 04:47] LABS: Basophils % (A) 0 %; Eosinophils # (A) 0.3 k/uL (0-0.7); Eosinophils % (A) 5 %; HCT 30.3 % (39.0-53.0); HGB 9.6 gm/dL (13.0-17.5); Lymphocytes % (A) 15 %; MCH 37.1 pg (25.0-35.0); MCHC 31.7 g/dL (31.0-37.0); MCV 117.3 fL (80.0-100.0); Macrocytosis Marked; Mean Platelet Volume 6.7; Monocytes # (A) 0.5 k/uL (0-1.0); Monocytes % (A) 7 %; Neutrophils # (A) 4.4 k/uL (1.3-7.7); Neutrophils % (A) 70 %; Platelet Count 610 k/uL (150-450); RBC 2.58 m/uL (4.30-5.90); WBC 6.3 k/uL (3.8-10.6)
[2018-07-11 05:00] LABS: Calcium 7.7 mg/dL (8.4-10.2); Magnesium 2.3 mg/dL (1.6-2.3); Phosphorus 2.3 mg/dL (2.5-4.5)
[2018-07-11] MEDS: LEVOTHYROXINE 125 MCG TAB PO SCH (06:15)
[2018-07-11 06:50] LABS: Glucose,Whole Blood 96 mg/dL (75-99)
[2018-07-11] MEDS: INSULIN ASPART 100 UNIT/ML 1 ML 10 ML VIAL SQ SCH ×4 (07:01→21:50)
--- NOTE | 2018-07-11 08:11 | XR ---
EXAMINATION TYPE: XR chest 1V portable DATE OF EXAM: 07/11/2018 COMPARISON: Prior chest x-ray 07/10/2018 HISTORY: Pulmonary edema TECHNIQUE: Single frontal view of the chest is obtained. FINDINGS: Interstitium is mildly increased. There is improvement in aeration. No other significant i nterval change. There are overlying cardiac leads. IMPRESSION: Suspect some improvement in aeration, volume status.
[2018-07-11] MEDS: CLOPIDOGREL 75 MG TAB PO SCH (09:27)
[2018-07-11] MEDS: amLODIPine 10 MG TAB PO SCH (09:27)
[2018-07-11] MEDS: ASPIRIN 81 MG PO SCH (09:27)
[2018-07-11] MEDS: ISOSORBIDE MONONITRATE ER 60 MG TAB.ER.24H PO SCH (09:27)
[2018-07-11] MEDS: FUROSEMIDE 10 MG/ML 2 ML VIAL IV SCH (09:27)
[2018-07-11] MEDS: INSULIN DETEMIR 100 UNIT/ML 10 ML VIAL SQ SCH (09:27)
[2018-07-11] MEDS: PREGABALIN 100 MG CAP PO SCH ×2 (09:28→21:51)
[2018-07-11] MEDS: METOPROLOL TARTRATE 50 MG TAB PO SCH ×2 (09:28→21:50)
[2018-07-11] MEDS: PANTOPRAZOLE 40 MG TABLET PO SCH (09:28)
[2018-07-11] MEDS: FERROUS SULFATE 325 MG TAB PO SCH (09:28)
--- NOTE | 2018-07-11 10:55 | P.PN ---
Subjective Progress Note Date: 07/11/18 Principal diagnosis: Acute hypoxic respiratory failure secondary to cardiogenic pulmonary edema with acute non-ST elevation myocardial infarction 67-year-old male patient who came into the ICU with acute hypoxic respiratory failure. The patient was found to be profoundly hypoxic on the telemetry unit and the patient was placed on a high flow oxygen and subsequently he is placed on a BiPAP at a pressure of 12/5 cm of water and FiO2 of 100% and he got moved to the intensive care unit. The patient is known to have coronary artery disease. He underwent coronary artery bypass surgery back in 2016 and he underwent four-vessel bypass surgery that was done by Dr. Nathan Moeller. Patient underwent SANTOS to LAD saphenous vein graft to OM 1 OM 2 and distal RCA. Subsequently also underwent aortic TAVR. The patient is also known to have multiple medical problems including previous history of CVA and residual left- sided weakness, diabetes mellitus, hypertension and hyperlipidemia and is a chronic smoker continues to smoke cigarettes. Over the past 3 days the patient was having some altered mentation. He was on and off found by family members to be confused. Subsequently he started having intermittent chest pain. Apparently was having symptoms of heartburn and he was over utilizing Tums and he was taking Tums tablet up to 10 tablets on a daily basis. He was not getting much relief. He came into the hospital and in the ED the patient was found to have a BP of 190/80 with a pulse ox of 98% on 2 L and a heart rate of 120 irregular consistent with atrial fibrillation and rapid ventricular response. The patient also had EKG changes with some nonspecific ST/ST segment abnormalities and depression in the lateral leads. [id number] in for acute non-ST segment elevation myocardial infarction and troponin peaked at 27. The patient also developed an acute kidney injury. His calcium level was at 14. He was started on IV heparin. He was also started on nitroglycerin drip for blood pressure control. He is current rhythm is sinus bradycardia with occasional brief junctional rhythms. The patient is free of any chest pain. His mental status is still altered yet the patient is not agitated. He is following simple commands. Moving all 4 extremities with some known left- sided weakness compared to the right because of previous CVA. His chest x-ray was essentially within normal limits at the time of admission and subsequently developed at the pulmonary infiltrates consistent with acute pulmonary edema. Echo of the heart showed a preserved LV function without any significant valvular abnormalities. A Araujo catheter was inserted and immediately fell and 350 mL of urine output was obtained. The patient was also started on IV Lasix and currently receiving Lasix 40 mg IV push every 12 hours. Pulses are palpable in lower extremities bilaterally. Abdomen is at the bedside and I did ask discussion with the patient's daughter and the . They told me that the patient did not want any intubation mechanical ventilation. BiPAP was okay by them. Per family's wishes the patient is a DNR/DNI CODE STATUS. Note that the patient also has history of prostate cancer yet this is localized and nonmetastatic at this stage and the hypercalcemia is unlikely to be related to his prostate cancer. On today's evaluation of 07/07/2018, the patient is much more comfortable and less shortness of breath compared to yesterday. He was taken off the BiPAP earlier this morning and currently is on 6 L of oxygen by nasal cannula. He did diuresed with IV Lasix and the patient's chest x-ray shows improvement in the volume status although there is some underlying ongoing pulmonary edema. He is free of any chest pain. He remains on IV heparin. He remains on IV nitroglycerin. Blood pressure is still somewhat elevated. His sinus mechanism still present. He is somewhat bradycardic with a heart rate in the mid 50s. No chest pain. Troponin is been dropping down and downtrending. No fever. No chills. No altered mentation and is following commands and answering questions. He is demonstrating significant motor weakness both in upper and lower extremities. Today's creatinine is at 2.3. Troponin is downtrending is down to 6.8. On 07/08/2018, the patient is feeling less short of breath compared to yesterday. He spent the night on the BiPAP and currently is on 8 L which I was able to cut down to 5 L and we're the process of weaning this patient's FiO2. Chest x-ray shows ongoing improvement and the pulmonary edema. The patient is free of any chest pain. Remains on IV nitroglycerin at 5 mics and remains on IV heparin. The patient is producing adequate amount of urine output and he is a negative fluid balance as being on Lasix 40 mg IV push every 12 hours. Creatinine is still stable at 2.3. He is free of any chest pain. His calcium level is also normalized. Nephrology is on the case. He is still extremely weak yet there is no altered mentation on today's evaluation. On 07/09/2018, the patient is awake. I was told that he had a episode of confusion yesterday with subsequently recovered and he is back to normal mentation this morning. Less short of breath. I cut him down to 3 L about 2 by nasal cannula. Chest x-ray showed improvement in the pulmonary edema and follow-up chest x-ray today shows further improvement. He has produced good amount of urine output while being on IV Lasix. Is a negative fluid balance of at least 2.5 L for yesterday. No chest pain. IV heparin was discontinued. Nitroglycerin was discontinued. He is on empiric antibiotic coverage with IV Zosyn. Hemodynamically stable. No cardiac arrhythmias noted. Renal function impaired yesterday but with a creatinine of 2.1. Reevaluated today on 07/10/2018, patient seems to be doing relatively well, he is hemodynamically stable, denies any shortness of breath, his chest x-ray seems to show significant improvement. Urine output seems to be reasonable. Patient continues to have intermittent episodes of atrial fibrillation, but hemodynamically stable, and that is being addressed by cardiology. Absent reviewed hemoglobin is 8.9 electrolytes are relatively normal BUN however is 25 creatinine is 1.80, renal profile seems to be steadily improving since admission. Reevaluated today on 07/03/2018, patient is presently in the ICU but he to selective overflow. Doing relatively well, patient is asymptomatic, urine output seems to be reasonable, chest x-ray showed significant improvement over the last 2 days, patient is responding well to diuretics and to the treatment of his congestive heart failure. Although he is known to have severe LV dysfunction, and that is being addressed by cardiology on the case. All labs and meds were reviewed. Renal status is also improving with creatinine down to 1.90. Objective - Vital Signs Vital signs: Vital Signs Temp 97.9 F 07/11/18 08:00 Pulse 92 07/11/18 09:20 Resp 24 07/11/18 09:20 BP 112/67 07/11/18 09:20 Pulse Ox 95 07/11/18 09:20 Intake & Output 08/27/18 08/28/18 08/28/18 18:59 06:59 18:59 Intake Total 287.5 162.5 50 Output Total 1725 2250 320 Balance -1437.5 -2087.5 -270 Weight 87.1 kg Intake: IV 287.5 162.5 50 .9 50 100 Magnesium Sulfate-D5w Pmx 200 1 gm In Dextrose/Water 1 100ml.bag @ 100 mls/hr IVPB Q1H [facility] Rx#: [id number] Piperacillin-Tazobactam 3 37.5 62.5 50 .375 gm In Dextrose/Water 1 50ml.bag @ 12.5 mls/hr IVPB Q8HR [facility] Rx#: [id number] Output: Urine 1725 2250 320 Other: Voiding Method Indwelling Catheter Indwelling Catheter Indwelling Catheter # Voids 1 # Bowel Movements 0 - Exam Gen. appearance the patient is in no form of respiratory distress.. Seems to be quite appropriate this morning.. Head exam was generally normal. There was no scleral icterus or corneal arcus. Mucous membranes were moist. Neck was supple and without jugular venous distension, thyromegaly, or carotid bruits. Carotids were easily palpable bilaterally. There was no adenopathy. Lungs sounds are diminished bilaterally no crackles, no rhonchi and no wheezes. Heart sounds are regular, somewhat bradycardic, so no significant murmurs appreciated. No right ventricular heave or thrill. Abdominal exam revealed normal bowel sounds. The abdomen was soft, non-tender, and without masses, organomegaly, or appreciable enlargement of the abdominal aorta. Examination of the extremities revealed easily palpable radial, femoral and pedal pulses. There was no cyanosis, clubbing or edema. Examination of the skin revealed no evidence of significant rashes, suspicious appearing nevi or other concerning lesions. Neurologically, follows some simple commands. No gross focal deficit noted. Psychiatric: Normal mood affect and mental status examination. - Labs CBC & Chem 7: 07/11/18 04:01 07/11/18 04:01 Labs: Abnormal Lab Results - Last 24 Hours (Table) 07/10/18 07/10/18 07/10/18 Range/Units 12:06 16:50 20:24 RBC (4.30-5.90) m/uL Hgb (13.0-17.5) gm/dL Hct (39.0-53.0) % MCV (80.0-100.0) fL MCH (25.0-35.0) pg Plt Count (150-450) k/uL Chloride (98-107) mmol/L Carbon Dioxide (22-30) mmol/L BUN (9-20) mg/dL Creatinine (0.66-1.25) mg/dL POC Glucose (mg/dL) 210 H 211 H 163 H (75-99) mg/dL Calcium (8.4-10.2) mg/dL Phosphorus (2.5-4.5) mg/dL 07/11/18 07/11/18 Range/Units 04:01 04:01 RBC 2.58 L (4.30-5.90) m/uL Hgb 9.6 L (13.0-17.5) gm/dL Hct 30.3 L (39.0-53.0) % MCV 117.3 H (80.0-100.0) fL MCH 37.1 H (25.0-35.0) pg Plt Count 610 H (150-450) k/uL Chloride 109 H (98-107) mmol/L Carbon Dioxide 20 L (22-30) mmol/L BUN 23 H (9-20) mg/dL Creatinine 1.90 H (0.66-1.25) mg/dL POC Glucose (mg/dL) (75-99) mg/dL Calcium 7.7 L (8.4-10.2) mg/dL Phosphorus 2.3 L (2.5-4.5) mg/dL Assessment and Plan Assessment: 1 acute hypoxic history failure, mainly secondary to cardiogenic pulmonary edema in the setting of an acute non-ST segment elevation myocardial infarction. Significantly improved over the last 24 hours. 2 coronary artery disease with previous four-vessel bypass surgery 3 acute non-ST segment elevation myocardial infarction with secondary chest pain 4 acute kidney injury, improving the creatinine is 1.9 5 acute hypercalcemia likely to excessive intake of Tums on outpatient basis, improving and the calcium level is down trending, and inspect his baseline. 6 previous history aortic valve replacement TAVR 7 atrial fibrillation of a new onset, converted into normal sinus rhythm, currently in sinus mechanism 8 previous history of CVA 9 diabetes mellitus 10 diabetic peripheral neuropathy 11 peripheral vascular disease 12 hematologic disorder maintained on Hydrea on outpatient basis exact type is not known to me at this point 13 history of chronic iron deficiency anemia 14 prostate cancer 15 hypothyroidism 16 DNR/DNI CODE STATUS Recommendation: Continue present treatment plan including diuretics, continue to monitor renal profile, continue to monitor cardiac status and his atrial fibrillation, patient is presently overflow from selective. Time with Patient: Less than 30
[2018-07-11 11:50] LABS: Glucose,Whole Blood 239 mg/dL (75-99)
--- NOTE | 2018-07-11 15:47 | PN ---
PROGRESS NOTE Patient is seen for followup for acute kidney injury. His serum creatinine has gone up slightly to 1.9 from 1.8 yesterday. Overall, patient denies any significant complaints. He is maintained on a small dose of Lasix 40 mg IV q.12 hours. On examination today, blood pressure is 121/43, heart rate 74 per minute. He is afebrile. EXAMINATION OF THE HEART: S1, S2. EXAMINATION OF LUNGS: Bilateral breath sounds are heard. ABDOMEN: Soft, non-tender. Examination of lower extremities shows edema 1+ bilaterally. SAW FILER exam is grossly intact. Labs show sodium 138, potassium 4.0, chloride 109, BUN 23, serum creatinine 1.9, hemoglobin 9.6 g/dL. ASSESSMENT: 1. Acute kidney injury secondary to hypercalcemia. Serum creatinine has improved; however, slightly weaker today as compared to yesterday. I will decrease the Lasix to once a day and repeat labs in a.m. 2. Hypercalcemia associated with excessive intake of Tums, currently significantly improved. 3. Cerebrovascular accident with some residual left-sided weakness. PLAN: Decrease Lasix. Repeat labs in a.m. MMODL / IJN: [id number] /
[2018-07-11 16:24] LABS: Glucose,Whole Blood 253 mg/dL (75-99)
--- NOTE | 2018-07-11 18:02 | P.PN ---
Subjective Progress Note Date: 07/11/18 Progress note being dictated for interval history:this is a 67-year-old gentleman admitted with acute non-STEMI, acute hypoxic respiratory failure, CHF exacerbation, possible pneumonia,acute renal failure and multiple other medical issues.Evaluated by cardiology and patient currently not a candidate for cardiac catheterization with medical therapy being maximized.telemetry reporting junctional alternating with sinus bradycardia, 40's.respiratory status worsening, requiring high 8 Lflow nasal cannula,more lethargic, diaphoretic.creatinine2.4.maintained on nitroglycerin and heparin drips. Denies chest pain.maintained on Zometa with calcium, improving, 11.3. Review of systems:is significantly short of breath,confused, unable to assess at this time. Active Medications Acetaminophen (Tylenol Tab) 650 mg PO Q6HR PRN PRN Reason: Mild Pain or Fever > 100.5 Hydrocodone Bitart/Acetaminophen (Benton 5-325) 1 each PO Q6HR PRN PRN Reason: Pain Alprazolam (Xanax) 0.25 mg PO TID PRN PRN Reason: Anxiety Amlodipine Besylate (Norvasc) 10 mg PO DAILY [facility] Last Admin: 07/06/18 08:39 Dose: 10 mg Aspirin (Aspirin) 81 mg PO DAILY [facility] Atorvastatin Calcium (Lipitor) 80 mg PO HS [facility] Clopidogrel Bisulfate (Plavix) 75 mg PO DAILY [facility] Last Admin: 07/06/18 08:39 Dose: 75 mg Ferrous Sulfate (Feosol) 325 mg PO DAILY [facility] Last Admin: 07/06/18 08:30 Dose: Not Given Furosemide (Lasix) 20 mg IV Q12HR [facility] Last Admin: 07/06/18 11:54 Dose: 20 mg Heparin Sodium (Porcine) (Heparin) 0 unit IV PER PROTOCOL PRN; Protocol PRN Reason: Low PTT Last Admin: 07/05/18 17:14 Dose: 4,000 unit Heparin Sodium/Sodium Chloride (25,000 unit/ Sodium Chloride) 500 mls @ 19.99 mls/hr IV .Q24H [facility]; Protocol Last Titration: 07/06/18 07:01 Dose: 13 units/kg/hr, 22.4 mls/hr Nitroglycerin/Dextrose 50 mg/ (IV Solution) 250 mls @ 1.5 mls/hr IV .Q24H [facility]; Protocol Last Admin: 07/05/18 21:38 Dose: 5 mcg/min, 1.5 mls/hr Insulin Aspart (Novolog) 0 unit SQ ACHS [facility]; Protocol Last Admin: 07/06/18 16:39 Dose: Not Given Insulin Detemir (Levemir) 35 unit SQ DAILY [facility] Last Admin: 07/06/18 08:41 Dose: Not Given Levothyroxine Sodium (Synthroid) 125 mcg PO DAILY@0630 [facility] Last Admin: 07/06/18 06:26 Dose: Not Given Metoprolol Tartrate (Lopressor) 50 mg PO BID [facility] Last Admin: 07/06/18 08:46 Dose: Not Given Morphine Sulfate (Morphine Oral Shikha 2mg/Ml) 12 mg PO Q4HR PRN PRN Reason: Severe Pain Naloxone HCl (Narcan) 0.2 mg IV Q2M PRN PRN Reason: Opioid Reversal Pantoprazole Sodium (Protonix) 40 mg PO AC-BRKFST [facility] Last Admin: 07/06/18 06:26 Dose: Not Given Prednisolone Acetate (Pred Forte 1%) 1 drops RIGHT EYE Q4HR [facility] Last Admin: 07/06/18 13:05 Dose: Not Given Pregabalin (Lyrica) 200 mg PO BID [facility] Last Admin: 07/06/18 11:54 Dose: Not Given Venlafaxine HCl (Effexor Xr) 75 mg PO HS [facility] Last Admin: 07/05/18 19:59 Dose: 75 mg 07/07/2018 transferred yesterday to ICU. Required BiPAP throughout the night. Currently maintaining O2 sats in the low 90s on high flow 6 L nasal cannula. Diuresing well on Lasix IV push with 24-hour I&O reflecting a negative fluid balance. creatinine 2.3. Maintained on heparin and nitroglycerin drips. Weaning of nitroglycerin drip in progress. Tmx 100.4.chest x-ray reporting improvementin time status, pulmonary edema.telemetry sinus bradycardia.troponin trending down. Review of systems: CONSTITUTIONAL: fatigued,fevers, confusion. HEENT: No recent visual problems or hearing problems. Denied any sore throat. CARDIOVASCULAR: No chest pain, no palpitations, no syncope. PULMONARY: Positive shortness of breath, no cough, no hemoptysis. GASTROINTESTINAL: No diarrhea, no nausea, no vomiting, no abdominal pain. Normoactive bowel sounds. NEUROLOGICAL: No headaches, generalized weakness, no numbness. HEMATOLOGICAL: Denies any bleeding or petechiae. GENITOURINARY: Denies any burning micturition, frequency, or urgency. MUSCULOSKELETAL/RHEUMATOLOGICAL: Denies any joint pain, swelling, or any muscle pain. ENDOCRINE: Denies any polyuria or polydipsia. PSYCHIATRIC: No anxiety, no depression The rest of the 14 point review of systems is negative Active Medications Acetaminophen (Tylenol Tab) 650 mg PO Q6HR PRN PRN Reason: Mild Pain or Fever > 100.5 Hydrocodone Bitart/Acetaminophen (Benton 5-325) 1 each PO Q6HR PRN PRN Reason: Pain Alprazolam (Xanax) 0.25 mg PO TID PRN PRN Reason: Anxiety Amlodipine Besylate (Norvasc) 10 mg PO DAILY [facility] Last Admin: 07/07/18 08:21 Dose: 10 mg Aspirin (Aspirin) 81 mg PO DAILY [facility] Last Admin: 07/07/18 08:21 Dose: 81 mg Atorvastatin Calcium (Lipitor) 80 mg PO HS [facility] Last Admin: 07/07/18 20:53 Dose: 80 mg Clopidogrel Bisulfate (Plavix) 75 mg PO DAILY [facility] Last Admin: 07/07/18 08:21 Dose: 75 mg Ferrous Sulfate (Feosol) 325 mg PO DAILY [facility] Last Admin: 07/07/18 08:20 Dose: 325 mg Furosemide (Lasix) 40 mg IV Q12HR [facility] Last Admin: 07/07/18 20:50 Dose: 40 mg Heparin Sodium (Porcine) (Heparin) 0 unit IV PER PROTOCOL PRN; Protocol PRN Reason: Low PTT Last Admin: 07/05/18 17:14 Dose: 4,000 unit Hydralazine HCl (Apresoline) 10 mg IVP Q4HR PRN PRN Reason: Blood Pressure - High Last Admin: 07/07/18 02:12 Dose: 10 mg Heparin Sodium/Sodium Chloride (25,000 unit/ Sodium Chloride) 500 mls @ 19.99 mls/hr IV .Q24H [facility]; Protocol Last Admin: 07/07/18 20:52 Dose: 13 units/kg/hr, 22.4 mls/hr Nitroglycerin/Dextrose 50 mg/ (IV Solution) 250 mls @ 1.5 mls/hr IV .Q24H [facility]; Protocol Last Admin: 07/07/18 20:51 Dose: 5 mcg/min, 1.5 mls/hr Piperacillin/Tazobactam/ (Dextrose 3.375 gm/ IV Solution) 50 mls @ 12.5 mls/hr IVPB Q8HR [facility] Last Admin: 07/07/18 16:42 Dose: 12.5 mls/hr Insulin Aspart (Novolog) 0 unit SQ ACHS [facility]; Protocol Last Admin: 07/07/18 20:50 Dose: 1 unit Insulin Detemir (Levemir) 35 unit SQ DAILY [facility] Last Admin: 07/07/18 08:22 Dose: 35 unit Levothyroxine Sodium (Synthroid) 125 mcg PO DAILY@0630 [facility] Last Admin: 07/07/18 06:34 Dose: 125 mcg Metoprolol Tartrate (Lopressor) 50 mg PO BID [facility] Last Admin: 07/07/18 20:50 Dose: 50 mg Miscellaneous Information (Magnesium Per Protocol) 1 each MISCELLANE DAILY PRN ; Protocol PRN Reason: Per Protocol Miscellaneous Information (Potassium Per Protocol) 1 each MISCELLANE DAILY PRN ; Protocol PRN Reason: Per Protocol Morphine Sulfate (Morphine Oral Shikha 2mg/Ml) 12 mg PO Q4HR PRN PRN Reason: Severe Pain Morphine Sulfate (Morphine Sulfate (Inj)) 2 mg IVP Q4H PRN PRN Reason: Pain/Discomfort Last Admin: 07/06/18 18:34 Dose: 2 mg Naloxone HCl (Narcan) 0.2 mg IV Q2M PRN PRN Reason: Opioid Reversal Pantoprazole Sodium (Protonix) 40 mg PO AC-BRKFST [facility] Last Admin: 07/07/18 08:20 Dose: 40 mg Pregabalin (Lyrica) 200 mg PO BID [facility] Last Admin: 07/07/18 20:49 Dose: 200 mg Venlafaxine HCl (Effexor Xr) 75 mg PO HS [facility] Last Admin: 07/07/18 20:50 Dose: 75 mg 07/10/2018 chest x-ray improving, maintained on Lasix IV push, diuresing well with 24-hour I&O reflecting a negative fluid balance. Denies increase in shortness of breath, maintaining O2 sats in the high 90s on 3 L nasal cannula. Has not required BiPAP at night for the last 2 nights. Telemetry sinus rhythm with paroximal atrial fibrillation. Magnesium 1.9. Patient has been cleared to transfer out of ICU to telemetry floor. Hemoglobin 8.9,. Renal function improving, creatinine 1.8. Potassium 3.5. Potential Cardiac catheterization being discussed per cardiology. 07/11/2018 diuresing well on Lasix IV push with chest x-ray reporting continued improvement in aeration/volume status. Renal function improving. Awaiting transfer out of ICU to telemetry unit. Objective - Vital Signs Vital signs: Vital Signs Temp 97.6 F 07/11/18 12:00 Pulse 79 07/11/18 16:00 Resp 20 07/11/18 16:00 BP 146/63 07/11/18 16:00 Pulse Ox 93 L 07/11/18 16:00 Intake & Output 07/10/18 07/11/18 07/11/18 18:59 06:59 18:59 Intake Total 287.5 162.5 286 Output Total 1725 2250 320 Balance -1437.5 -2087.5 -34 Weight 87.1 kg Intake: IV 287.5 162.5 50 .9 50 100 Magnesium Sulfate-D5w Pmx 200 1 gm In Dextrose/Water 1 100ml.bag @ 100 mls/hr IVPB Q1H [facility] Rx#: [id number] Piperacillin-Tazobactam 3 37.5 62.5 50 .375 gm In Dextrose/Water 1 50ml.bag @ 12.5 mls/hr IVPB Q8HR [facility] Rx#: [id number] Oral 236 Output: Urine 1725 2250 320 Other: Voiding Method Indwelling Catheter Indwelling Catheter Indwelling Catheter # Voids 1 # Bowel Movements 0 - Exam PHYSICAL EXAM: VITAL SIGNS: [as above] GENERAL: sitting up in bed, no acute distress, significant other at bedside HEENT: Conjunctivae normal. eyes normal.oral mucosa moist NECK: No JVD, No thyroid enlargement. No LNs CARDIOVASCULAR: S1, S2 muffled. bradycardic,systolic murmur RESPIRATION: Breath sounds diminished in the bases. No crackles, rhonchi, or expiratory wheezing ABDOMEN: Soft, nontender . No guarding. no masses palpable. Bowel sounds heard. LEGS: No edema PSYCHIATRY: Alert and oriented -2, cooperative, follows simple commands, slowly. NERVOUS SYSTEM: Diffuse weakness of all extremities, follows simple commands, No focal deficits. - Labs CBC & Chem 7: 07/11/18 04:01 07/11/18 04:01 Labs: Abnormal Lab Results - Last 24 Hours (Table) 07/10/18 07/11/18 07/11/18 Range/Units 20:24 04:01 04:01 RBC 2.58 L (4.30-5.90) m/uL Hgb 9.6 L (13.0-17.5) gm/dL Hct 30.3 L (39.0-53.0) % MCV 117.3 H (80.0-100.0) fL MCH 37.1 H (25.0-35.0) pg Plt Count 610 H (150-450) k/uL Chloride 109 H (98-107) mmol/L Carbon Dioxide 20 L (22-30) mmol/L BUN 23 H (9-20) mg/dL Creatinine 1.90 H (0.66-1.25) mg/dL POC Glucose (mg/dL) 163 H (75-99) mg/dL Calcium 7.7 L (8.4-10.2) mg/dL Phosphorus 2.3 L (2.5-4.5) mg/dL 07/11/18 07/11/18 Range/Units 11:48 16:22 RBC (4.30-5.90) m/uL Hgb (13.0-17.5) gm/dL Hct (39.0-53.0) % MCV (80.0-100.0) fL MCH (25.0-35.0) pg Plt Count (150-450) k/uL Chloride (98-107) mmol/L Carbon Dioxide (22-30) mmol/L BUN (9-20) mg/dL Creatinine (0.66-1.25) mg/dL POC Glucose (mg/dL) 239 H 253 H (75-99) mg/dL Calcium (8.4-10.2) mg/dL Phosphorus (2.5-4.5) mg/dL Assessment and Plan Assessment: 1. acute non-STEMI 2.atrial fibrillation with RVR, currently sinus rhythm with paroxysmal afib 3. Acute hypoxic respiratory failure secondary to acute CHF exacerbation, diastolic dysfunction, EF 55-60%, cardiogenic pulmonary edema secondary to acute non-STEMI 4. Hypercalcemia, improving 5. anemia of chronic disease,iron deficient 6. Acute renal failure, possibly prerenal, acute tubular necrosis secondary to hypercalcemia 7. DM II6 diabetes mellitus type 2 8. CAD, history of TAVR,CABG - both in 2016 9. History of CVA, TIA 10. History of nicotine dependence 11. Hypertension 12. Mild to moderate mitral regurgitation plan: Continue on current medication regime ,monitoring and symptomatic treatment. Lasix dose decreased as per nephrology , strict I&O's. Awaiting transfer to telemetry unit. Close monitoring of renal function, with repeat labs ordered for a.m. PT/OT.Further recommendations to follow. The impression and plan of care has been dictated as directed. : I performed a history and examination of this patient, discussed the same with the dictator. I agree with the dictator's note ,documented as a scribe. Any additional findings or plans will be noted.
[2018-07-11 21:09] LABS: Glucose,Whole Blood 257 mg/dL (75-99)
[2018-07-11] MEDS: ATORVASTATIN 80 MG TAB PO SCH (21:50)
[2018-07-11] MEDS: VENLAFAXINE HCL ER 75 MG CAP PO SCH (21:51)
[2018-07-12] MEDS ORDERED: MORPHINE ORAL SOLN 10 MG/5 ML CUP PO PRN (06:12)
[2018-07-12 06:13] LABS: Glucose,Whole Blood 127 mg/dL (75-99)
[2018-07-12] MEDS: INSULIN ASPART 100 UNIT/ML 1 ML 10 ML VIAL SQ SCH ×4 (06:26→22:29)
[2018-07-12] MEDS: LEVOTHYROXINE 125 MCG TAB PO SCH (07:34)
[2018-07-12] MEDS: PANTOPRAZOLE 40 MG TABLET PO SCH (07:34)
[2018-07-12] MEDS: CLOPIDOGREL 75 MG TAB PO SCH (08:54)
[2018-07-12] MEDS: ASPIRIN 81 MG PO SCH (08:54)
[2018-07-12] MEDS: FERROUS SULFATE 325 MG TAB PO SCH (08:54)
[2018-07-12] MEDS: METOPROLOL TARTRATE 50 MG TAB PO SCH ×2 (08:54→22:28)
[2018-07-12] MEDS: amLODIPine 10 MG TAB PO SCH (08:54)
[2018-07-12] MEDS: ISOSORBIDE MONONITRATE ER 60 MG TAB.ER.24H PO SCH (08:54)
[2018-07-12] MEDS: PREGABALIN 100 MG CAP PO SCH ×2 (10:30→22:28)
[2018-07-12] MEDS: PIPERACILLIN-TAZOBACTAM 3.375 GM in DEXTROSE/WATER 1 50ML.BAG IVPB SCH ×2 (10:30→16:07)
[2018-07-12] MEDS: FUROSEMIDE 10 MG/ML 2 ML VIAL IV SCH (10:30)
[2018-07-12 10:48] VITALS: BMI 28.0
[2018-07-12 11:49] LABS: Glucose,Whole Blood 314 mg/dL (75-99)
[2018-07-12 11:58] LABS: Calcium 7.1 mg/dL (8.4-10.2); Potassium 4.1 mmol/L (3.5-5.1)
[2018-07-12] MEDS: NICOTINE 14MG/24HR PATCH TRANSDERM SCH (12:18)
[2018-07-12] MEDS: INSULIN DETEMIR 100 UNIT/ML 10 ML VIAL SQ SCH (12:18)
--- NOTE | 2018-07-12 15:31 | P.PN ---
Subjective Progress Note Date: 07/12/18 This is a 67-year-old gentleman with known history of coronary artery disease, in 2016 patient went to [facility] from here and underwent quadruple bypass by Dr. Moleler with a SANTOS to the LAD, saphenous vein graft to the obtuse marginal 1, saphenous vein graft to the obtuse marginal 2, saphenous vein graft to the distal RCA. Patient also underwent aortic TAVR. Patient does have history of prior CVA, diabetes, hypertension, chronic anemia, hyperlipidemia, history of nicotine dependence. He presents to the hospital on this occasion with a 2-3 duration of chest discomfort. Patient states 2 days ago he was having intermittent chest pain off and on, yesterday he states the pain was quite constant. He presented to the emergency room for further evaluation. Blood pressure on arrival 190/88, heart rate 120, 98% on 2 L of oxygen. Patient was noted to have a low-grade temperature of 99.1. Blood pressure this morning 124/60, heart rate in the 50s. EKG on arrival here showed atrial fibrillation with a moderately rapid ventricular response, nonspecific ST-T wave changes noted subsequent EKG continued to show atrial fibrillation with a rapid ventricular response, ST depression is noted in the anterior lateral leads. This morning's EKG, patient has converted to a normal sinus rhythm, he is actually bradycardic with heart rate in the 40s to 50s. S2 x-ray did not reveal any definite process. White blood cell count 3.8, hemoglobin on arrival 11.4, 9.3 this morning. Sodium 138, potassium 3.7, BUN 36 and creatinine 2.4 on admission, 34 and 2.3 this morning. Calcium level on admission 14, 13 this morning. Magnesium 1.5 on admission, 1.9 this morning. BNP [id number]. Troponins 0.048, 7.1, 30.4. At the time of my examination this morning, patient continues to complain of chest pressure at about a 4. Patient states he does not follow with her gis scientist, he sees a primary care doctor in [place]. He does state that he has been taking his home medications. His home medications included Lyrica, iron supplementation, Effexor, Synthroid, Glucophage, Lantus, hydroxyurea, Lipitor 20, Norvasc 10, Lopressor 50 twice a day, Plavix 75 mg daily and a full aspirin daily. It was thought this morning the patient may have had blood in his emesis, he did vomit times one. Patient states that he ate chili last night, he denies any blood in his stool or black stool. Echocardiogram with Doppler study which was performed in February 2016 before his bypass surgery showed a normal left ventricular systolic function at that time. 07/06/2018 Patient was seen and examined this morning, he is more lethargic than yesterday. Blood pressure 160/70 with a heart rate in the 50s, 93% on 8 L high flow. Hemoglobin 8 today, platelet count 317, white blood cell count normal. Sodium 138, potassium 3.7, BUN 34, creatinine 2.4. Echocardiogram with Doppler study revealed a normal left ventricular systolic function. Repeat chest x-ray was performed today which revealed diffuse pleural parenchymal changes suggestive of CHF, findings progressed from previous exam. Patient is on IV Lasix twice a day, is also getting IV fluids at 100 mL per hour per nephrology. Patient's request on this admission and prior admissions if that he be a no code. 07/12/2018 Patient was seen and examined this morning. Blood pressure 122/90 with a heart rate in the 80s to 90s, 94% on room air. Sodium 136, potassium 4.1, BUN 22, creatinine 1.9. Objective - Vital Signs Vital signs: Vital Signs Temp 98.4 F 07/12/18 04:00 Pulse 59 L 07/12/18 12:00 Resp 18 07/12/18 12:00 BP 123/96 07/12/18 04:00 Pulse Ox 94 L 07/12/18 04:00 Intake & Output 07/11/18 07/12/18 07/12/18 18:59 06:59 18:59 Intake Total 523 120 240 Output Total 956 267 8928 Balance 203 805 -960 Weight 86 kg 86 kg Intake: IV 50 120 .9 70 Piperacillin-Tazobactam 3 50 50 .375 gm In Dextrose/Water 1 50ml.bag @ 12.5 mls/hr IVPB Q8HR [facility] Rx#: [id number] Oral 473 240 Output: Urine 544 554 1036 Stool 0 Urine/Stool Mix 0 Other: Voiding Method Indwelling Catheter Indwelling Catheter Indwelling Catheter # Voids 0 # Bowel Movements 0 1 1 - Exam PHYSICAL EXAMINATION: GENERAL: Frail 67-year-old gentleman somewhat lethargic today. HEENT: Head is atraumatic, normocephalic. Pupils equal, round. Sclera anicteric. Conjunctiva are clear. Mucous membranes of the mouth are moist. Neck is supple. There is no elevated jugular venous pressure.] bruit is heard. HEART EXAMINATION: Heart S1 and S2 systolic ejection murmur is heard. CHEST EXAMINATION: Lungs reveal decreased air exchange throughout. ABDOMEN: [ Soft, nontender. Bowel sounds are heard. No organomegaly noted]. EXTREMITIES:[ 1+ peripheral pulses with trace evidence of peripheral edema , bilateral legs are cool. NEUROLOGIC [patient is lethargic, arouses to voice - Labs CBC & Chem 7: 07/11/18 04:01 07/12/18 11:23 Labs: Abnormal Lab Results - Last 24 Hours (Table) 07/11/18 07/11/18 07/12/18 Range/Units 16:22 21:08 06:12 Sodium (137-145) mmol/L BUN (9-20) mg/dL Creatinine (0.66-1.25) mg/dL Glucose (74-99) mg/dL POC Glucose (mg/dL) 253 H 257 H 127 H (75-99) mg/dL Calcium (8.4-10.2) mg/dL 07/12/18 07/12/18 Range/Units 11:23 11:27 Sodium 136 L (137-145) mmol/L BUN 22 H (9-20) mg/dL Creatinine 1.93 H (0.66-1.25) mg/dL Glucose 285 H (74-99) mg/dL POC Glucose (mg/dL) 314 H (75-99) mg/dL Calcium 7.1 L (8.4-10.2) mg/dL Assessment and Plan Plan: Assessment and plan #1 non-ST elevation myocardial infarction, #2 known history of coronary artery disease with quadruple bypass performed in 2016 at [facility] #3 status post TAVR performed in February 2016 #4 hypertension #5 hyperlipidemia #6 diabetes #7 hypothyroidism #8 anemia, patient has history of iron deficiency anemia #9 acute renal insufficiency, creatinine 2.3, creatinine on the first of this month was documented to be 1.2 #10 history of CVA Plan From cardiology's perspective, we will recommend to continue the patient on his current medications. He may be be discharged home once cleared by primary and we'll make him a follow-up appointment in the office post discharge. DNP note has been reviewed, I agree with a documented findings and plan of care. Patient was seen and examined.
--- NOTE | 2018-07-12 16:23 | P.PN ---
Subjective Progress Note Date: 07/12/18 Progress note being dictated for interval history:this is a 67-year-old gentleman admitted with acute non-STEMI, acute hypoxic respiratory failure, CHF exacerbation, possible pneumonia,acute renal failure and multiple other medical issues.Evaluated by cardiology and patient currently not a candidate for cardiac catheterization with medical therapy being maximized.telemetry reporting junctional alternating with sinus bradycardia, 40's.respiratory status worsening, requiring high 8 Lflow nasal cannula,more lethargic, diaphoretic.creatinine2.4.maintained on nitroglycerin and heparin drips. Denies chest pain.maintained on Zometa with calcium, improving, 11.3. Review of systems:is significantly short of breath,confused, unable to assess at this time. Active Medications Acetaminophen (Tylenol Tab) 650 mg PO Q6HR PRN PRN Reason: Mild Pain or Fever > 100.5 Hydrocodone Bitart/Acetaminophen (Alstead 5-325) 1 each PO Q6HR PRN PRN Reason: Pain Alprazolam (Xanax) 0.25 mg PO TID PRN PRN Reason: Anxiety Amlodipine Besylate (Norvasc) 10 mg PO DAILY ON LICENSE OF [facility] Last Admin: 07/06/18 08:39 Dose: 10 mg Aspirin (Aspirin) 81 mg PO DAILY [facility] Atorvastatin Calcium (Lipitor) 80 mg PO HS ON LICENSE OF [facility] Clopidogrel Bisulfate (Plavix) 75 mg PO DAILY ON LICENSE OF [facility] Last Admin: 07/06/18 08:39 Dose: 75 mg Ferrous Sulfate (Feosol) 325 mg PO DAILY ON LICENSE OF [facility] Last Admin: 07/06/18 08:30 Dose: Not Given Furosemide (Lasix) 20 mg IV Q12HR ON LICENSE OF [facility] Last Admin: 07/06/18 11:54 Dose: 20 mg Heparin Sodium (Porcine) (Heparin) 0 unit IV PER PROTOCOL PRN; Protocol PRN Reason: Low PTT Last Admin: 07/05/18 17:14 Dose: 4,000 unit Heparin Sodium/Sodium Chloride (25,000 unit/ Sodium Chloride) 500 mls @ 19.99 mls/hr IV .Q24H ON LICENSE OF [facility]; Protocol Last Titration: 07/06/18 07:01 Dose: 13 units/kg/hr, 22.4 mls/hr Nitroglycerin/Dextrose 50 mg/ (IV Solution) 250 mls @ 1.5 mls/hr IV .Q24H ON LICENSE OF [facility]; Protocol Last Admin: 07/05/18 21:38 Dose: 5 mcg/min, 1.5 mls/hr Insulin Aspart (Novolog) 0 unit SQ ACHS ON LICENSE OF [facility]; Protocol Last Admin: 07/06/18 16:39 Dose: Not Given Insulin Detemir (Levemir) 35 unit SQ DAILY ON LICENSE OF [facility] Last Admin: 07/06/18 08:41 Dose: Not Given Levothyroxine Sodium (Synthroid) 125 mcg PO DAILY@0630 ON LICENSE OF [facility] Last Admin: 07/06/18 06:26 Dose: Not Given Metoprolol Tartrate (Lopressor) 50 mg PO BID ON LICENSE OF [facility] Last Admin: 07/06/18 08:46 Dose: Not Given Morphine Sulfate (Morphine Oral Shikha 2mg/Ml) 12 mg PO Q4HR PRN PRN Reason: Severe Pain Naloxone HCl (Narcan) 0.2 mg IV Q2M PRN PRN Reason: Opioid Reversal Pantoprazole Sodium (Protonix) 40 mg PO AC-BRKFST ON LICENSE OF [facility] Last Admin: 07/06/18 06:26 Dose: Not Given Prednisolone Acetate (Pred Forte 1%) 1 drops RIGHT EYE Q4HR ON LICENSE OF [facility] Last Admin: 07/06/18 13:05 Dose: Not Given Pregabalin (Lyrica) 200 mg PO BID ON LICENSE OF [facility] Last Admin: 07/06/18 11:54 Dose: Not Given Venlafaxine HCl (Effexor Xr) 75 mg PO HS ON LICENSE OF [facility] Last Admin: 07/05/18 19:59 Dose: 75 mg 07/07/2018 transferred yesterday to ICU. Required BiPAP throughout the night. Currently maintaining O2 sats in the low 90s on high flow 6 L nasal cannula. Diuresing well on Lasix IV push with 24-hour I&O reflecting a negative fluid balance. creatinine 2.3. Maintained on heparin and nitroglycerin drips. Weaning of nitroglycerin drip in progress. Tmx 100.4.chest x-ray reporting improvementin time status, pulmonary edema.telemetry sinus bradycardia.troponin trending down. Review of systems: CONSTITUTIONAL: fatigued,fevers, confusion. HEENT: No recent visual problems or hearing problems. Denied any sore throat. CARDIOVASCULAR: No chest pain, no palpitations, no syncope. PULMONARY: Positive shortness of breath, no cough, no hemoptysis. GASTROINTESTINAL: No diarrhea, no nausea, no vomiting, no abdominal pain. Normoactive bowel sounds. NEUROLOGICAL: No headaches, generalized weakness, no numbness. HEMATOLOGICAL: Denies any bleeding or petechiae. GENITOURINARY: Denies any burning micturition, frequency, or urgency. MUSCULOSKELETAL/RHEUMATOLOGICAL: Denies any joint pain, swelling, or any muscle pain. ENDOCRINE: Denies any polyuria or polydipsia. PSYCHIATRIC: No anxiety, no depression The rest of the 14 point review of systems is negative Active Medications Acetaminophen (Tylenol Tab) 650 mg PO Q6HR PRN PRN Reason: Mild Pain or Fever > 100.5 Hydrocodone Bitart/Acetaminophen (Alstead 5-325) 1 each PO Q6HR PRN PRN Reason: Pain Alprazolam (Xanax) 0.25 mg PO TID PRN PRN Reason: Anxiety Amlodipine Besylate (Norvasc) 10 mg PO DAILY ON LICENSE OF [facility] Last Admin: 07/07/18 08:21 Dose: 10 mg Aspirin (Aspirin) 81 mg PO DAILY ON LICENSE OF [facility] Last Admin: 07/07/18 08:21 Dose: 81 mg Atorvastatin Calcium (Lipitor) 80 mg PO HS ON LICENSE OF [facility] Last Admin: 07/07/18 20:53 Dose: 80 mg Clopidogrel Bisulfate (Plavix) 75 mg PO DAILY ON LICENSE OF [facility] Last Admin: 07/07/18 08:21 Dose: 75 mg Ferrous Sulfate (Feosol) 325 mg PO DAILY ON LICENSE OF [facility] Last Admin: 07/07/18 08:20 Dose: 325 mg Furosemide (Lasix) 40 mg IV Q12HR ON LICENSE OF [facility] Last Admin: 07/07/18 20:50 Dose: 40 mg Heparin Sodium (Porcine) (Heparin) 0 unit IV PER PROTOCOL PRN; Protocol PRN Reason: Low PTT Last Admin: 07/05/18 17:14 Dose: 4,000 unit Hydralazine HCl (Apresoline) 10 mg IVP Q4HR PRN PRN Reason: Blood Pressure - High Last Admin: 07/07/18 02:12 Dose: 10 mg Heparin Sodium/Sodium Chloride (25,000 unit/ Sodium Chloride) 500 mls @ 19.99 mls/hr IV .Q24H ON LICENSE OF [facility]; Protocol Last Admin: 07/07/18 20:52 Dose: 13 units/kg/hr, 22.4 mls/hr Nitroglycerin/Dextrose 50 mg/ (IV Solution) 250 mls @ 1.5 mls/hr IV .Q24H ON LICENSE OF [facility]; Protocol Last Admin: 07/07/18 20:51 Dose: 5 mcg/min, 1.5 mls/hr Piperacillin/Tazobactam/ (Dextrose 3.375 gm/ IV Solution) 50 mls @ 12.5 mls/hr IVPB Q8HR ON LICENSE OF [facility] Last Admin: 07/07/18 16:42 Dose: 12.5 mls/hr Insulin Aspart (Novolog) 0 unit SQ ACHS ON LICENSE OF [facility]; Protocol Last Admin: 07/07/18 20:50 Dose: 1 unit Insulin Detemir (Levemir) 35 unit SQ DAILY ON LICENSE OF [facility] Last Admin: 07/07/18 08:22 Dose: 35 unit Levothyroxine Sodium (Synthroid) 125 mcg PO DAILY@0630 ON LICENSE OF [facility] Last Admin: 07/07/18 06:34 Dose: 125 mcg Metoprolol Tartrate (Lopressor) 50 mg PO BID ON LICENSE OF [facility] Last Admin: 07/07/18 20:50 Dose: 50 mg Miscellaneous Information (Magnesium Per Protocol) 1 each MISCELLANE DAILY PRN ; Protocol PRN Reason: Per Protocol Miscellaneous Information (Potassium Per Protocol) 1 each MISCELLANE DAILY PRN ; Protocol PRN Reason: Per Protocol Morphine Sulfate (Morphine Oral Shikha 2mg/Ml) 12 mg PO Q4HR PRN PRN Reason: Severe Pain Morphine Sulfate (Morphine Sulfate (Inj)) 2 mg IVP Q4H PRN PRN Reason: Pain/Discomfort Last Admin: 07/06/18 18:34 Dose: 2 mg Naloxone HCl (Narcan) 0.2 mg IV Q2M PRN PRN Reason: Opioid Reversal Pantoprazole Sodium (Protonix) 40 mg PO AC-BRKFST ON LICENSE OF [facility] Last Admin: 07/07/18 08:20 Dose: 40 mg Pregabalin (Lyrica) 200 mg PO BID ON LICENSE OF [facility] Last Admin: 07/07/18 20:49 Dose: 200 mg Venlafaxine HCl (Effexor Xr) 75 mg PO HS ON LICENSE OF [facility] Last Admin: 07/07/18 20:50 Dose: 75 mg 07/10/2018 chest x-ray improving, maintained on Lasix IV push, diuresing well with 24-hour I&O reflecting a negative fluid balance. Denies increase in shortness of breath, maintaining O2 sats in the high 90s on 3 L nasal cannula. Has not required BiPAP at night for the last 2 nights. Telemetry sinus rhythm with paroximal atrial fibrillation. Magnesium 1.9. Patient has been cleared to transfer out of ICU to telemetry floor. Hemoglobin 8.9,. Renal function improving, creatinine 1.8. Potassium 3.5. Potential Cardiac catheterization being discussed per cardiology. 07/11/2018 diuresing well on Lasix IV push with chest x-ray reporting continued improvement in aeration/volume status. Renal function improving. Awaiting transfer out of ICU to telemetry unit. 07/12/2018 transferred out of ICU, currently on telemetry unit. Vital signs stable. Creatinine 1.93. Objective - Vital Signs Vital signs: Vital Signs Temp 98.4 F 07/12/18 04:00 Pulse 59 L 07/12/18 12:00 Resp 18 07/12/18 12:00 BP 123/96 07/12/18 04:00 Pulse Ox 94 L 07/12/18 04:00 Intake & Output 07/11/18 07/12/18 07/12/18 18:59 06:59 18:59 Intake Total 523 120 240 Output Total 409 809 5448 Balance 203 -805 -960 Weight 86 kg 86 kg Intake: IV 50 120 .9 70 Piperacillin-Tazobactam 3 50 50 .375 gm In Dextrose/Water 1 50ml.bag @ 12.5 mls/hr IVPB Q8HR ON LICENSE OF [facility] Rx#: [id number] Oral 473 240 Output: Urine 919 350 2493 Stool 0 0 Urine/Stool Mix 0 Other: Voiding Method Indwelling Catheter Indwelling Catheter Indwelling Catheter # Voids 0 # Bowel Movements 0 1 1 - Exam PHYSICAL EXAM: VITAL SIGNS: [as above] GENERAL: sitting up in bed, no acute distress, slowly responds HEENT: Conjunctivae normal. eyes normal.oral mucosa moist NECK: No JVD, No thyroid enlargement. No LNs CARDIOVASCULAR: S1, S2 muffled. systolic murmur RESPIRATION: Breath sounds diminished in the bases. No wheezing ABDOMEN: Soft, nontender . No guarding. no masses palpable. Bowel sounds heard. LEGS: Trace edema PSYCHIATRY: Alert and oriented -2, cooperative, follows simple commands NERVOUS SYSTEM: Diffuse weakness of all extremities, follows simple commands, No focal deficits. - Labs CBC & Chem 7: 07/11/18 04:01 07/12/18 11:23 Labs: Abnormal Lab Results - Last 24 Hours (Table) 07/11/18 07/11/18 07/12/18 Range/Units 16:22 21:08 06:12 Sodium (137-145) mmol/L BUN (9-20) mg/dL Creatinine (0.66-1.25) mg/dL Glucose (74-99) mg/dL POC Glucose (mg/dL) 253 H 257 H 127 H (75-99) mg/dL Calcium (8.4-10.2) mg/dL 07/12/18 07/12/18 Range/Units 11:23 11:27 Sodium 136 L (137-145) mmol/L BUN 22 H (9-20) mg/dL Creatinine 1.93 H (0.66-1.25) mg/dL Glucose 285 H (74-99) mg/dL POC Glucose (mg/dL) 314 H (75-99) mg/dL Calcium 7.1 L (8.4-10.2) mg/dL Assessment and Plan Assessment: 1. acute non-STEMI 2.atrial fibrillation with RVR, currently sinus rhythm with paroxysmal afib 3. Acute hypoxic respiratory failure secondary to acute CHF exacerbation, diastolic dysfunction, EF 55-60%, cardiogenic pulmonary edema secondary to acute non-STEMI 4. Hypercalcemia, improving 5. anemia of chronic disease,iron deficient 6. Acute renal failure, possibly prerenal, acute tubular necrosis secondary to hypercalcemia 7. DM II6 diabetes mellitus type 2 8. CAD, history of TAVR,CABG - both in 2016 9. History of CVA, TIA 10. History of nicotine dependence 11. Hypertension 12. Mild to moderate mitral regurgitation plan: Continue on current medication regime ,monitoring and symptomatic treatment. Araujo discontinued, post void residuals. Close monitoring of renal function, with repeat labs ordered for a.m. evaluated by PT/OT, subacute rehab recommended at discharge. Discharge planning in progress for tomorrow. The impression and plan of care has been dictated as directed. : I performed a history and examination of this patient, discussed the same with the dictator. I agree with the dictator's note ,documented as a scribe. Any additional findings or plans will be noted.
[2018-07-12 16:40] LABS: Glucose,Whole Blood 225 mg/dL (75-99)
[2018-07-12 20:42] LABS: Glucose,Whole Blood 223 mg/dL (75-99)
--- NOTE | 2018-07-12 20:42 | PN ---
PROGRESS NOTE The patient is seen for followup for acute kidney injury. His renal function continues to improve. The patient is maintained on IV Lasix, which was decreased yesterday. He continues to have good urine output. EXAMINATION: Blood pressure was 123/96, heart rate 89 per minute. The patient is afebrile. HEART: S1, S2. LUNGS: Decreased breath sounds at the bases. Abdomen is soft, nontender. Lower extremities show 1+ edema. LABS: Show sodium 136, potassium 4.1, BUN 22, serum creatinine 1.93. ASSESSMENT: 1. Acute kidney injury, currently improving. Continue current dose of Lasix. Etiology was hypercalcemia. 2. Hypercalcemia associated with increased intake of Tums, currently resolved. 3. Cerebrovascular accident with residual left-sided weakness. PLAN: Continue current dose of Lasix, repeat labs in a.m. MMODL / IJN: [id number] /
[2018-07-12] MEDS: VENLAFAXINE HCL ER 75 MG CAP PO SCH (22:28)
[2018-07-12] MEDS: ATORVASTATIN 80 MG TAB PO SCH (22:29)
[2018-07-13] MEDS: PIPERACILLIN-TAZOBACTAM 3.375 GM in DEXTROSE/WATER 1 50ML.BAG IVPB SCH ×2 (00:24→09:41)
[2018-07-13 06:01] LABS: Glucose,Whole Blood 123 mg/dL (75-99)
[2018-07-13] MEDS: INSULIN ASPART 100 UNIT/ML 1 ML 10 ML VIAL SQ SCH ×2 (06:36→12:50)
[2018-07-13] MEDS: LEVOTHYROXINE 125 MCG TAB PO SCH (06:42)
[2018-07-13] MEDS: PANTOPRAZOLE 40 MG TABLET PO SCH (06:42)
--- NOTE | 2018-07-13 08:59 | P.PN ---
Subjective Patient is seen in follow-up for acute kidney injury. Creatinine is 1.93 yesterday. No labs available today. Hypercalcemia has resolved. Oral intake is fair. Admits to good urine output. No vomiting or diarrhea. Patient has diastolic CHF with ejection fraction of 55-60% with mild to moderate mitral regurgitation. Vital signs are stable. General: The patient appeared well nourished and normally developed. HEENT: Head exam is unremarkable. Neck is without jugular venous distension. LUNGS: Lungs are clear to auscultation and percussion. Breath sounds decreased. HEART: Rate and Rhythm are regular. First and second heart sounds normal. No murmurs, rubs or gallops. ABDOMEN: Abdominal exam reveals normal bowel sounds. Non-tender and non- distended. No evidence of peritonitis. EXTREMITITES: No clubbing, cyanosis, or edema. Objective - Vital Signs Vital signs: Vital Signs Temp 96.9 F L 07/13/18 08:38 Pulse 86 07/13/18 08:38 Resp 20 07/13/18 08:38 BP 176/76 07/13/18 08:38 Pulse Ox 97 07/13/18 08:38 Intake & Output 07/12/18 07/13/18 07/13/18 18:59 06:59 18:59 Intake Total 360 210 170 Output Total 1200 600 Balance -840 -390 170 Weight 86 kg Intake: IV 90 170 .9 40 120 Piperacillin-Tazobactam 3 50 50 .375 gm In Dextrose/Water 1 50ml.bag @ 12.5 mls/hr IVPB Q8HR [facility] Rx#: [id number] Oral 360 120 Output: Urine 1200 600 Stool 0 Other: Voiding Method Indwelling Catheter Incontinent # Voids 3 4 # Bowel Movements 1 - Labs CBC & Chem 7: 07/11/18 04:01 07/12/18 11:23 Labs: Abnormal Lab Results - Last 24 Hours (Table) 07/12/18 07/12/18 07/12/18 Range/Units 11:23 11:27 16:36 Sodium 136 L (137-145) mmol/L BUN 22 H (9-20) mg/dL Creatinine 1.93 H (0.66-1.25) mg/dL Glucose 285 H (74-99) mg/dL POC Glucose (mg/dL) 314 H 225 H (75-99) mg/dL Calcium 7.1 L (8.4-10.2) mg/dL 07/12/18 07/13/18 Range/Units 20:41 06:00 Sodium (137-145) mmol/L BUN (9-20) mg/dL Creatinine (0.66-1.25) mg/dL Glucose (74-99) mg/dL POC Glucose (mg/dL) 223 H 123 H (75-99) mg/dL Calcium (8.4-10.2) mg/dL Assessment and Plan Plan: Assessment: 1. Nonoliguric acute kidney injury secondary to ATN secondary to hypercalcemia. Renal function improved since admission. Creatinine 1.93 as of yesterday. 2. Hypercalcemia related to intake of Tums. Resolved. 3. Diastolic CHF with mild to moderate mitral regurgitation. 4. History of CVA. 5. Benign hypertension. Plan: Continue Lasix 40 mg IV once daily. Add hydralazine 25 mg 3 times daily. Encouraged oral intake. Repeat electrolytes in the morning.
[2018-07-13] MEDS ORDERED: hydrALAZINE HCL 25 MG TAB PO SCH (09:00)
[2018-07-13] MEDS: METOPROLOL TARTRATE 50 MG TAB PO SCH (09:32)
[2018-07-13] MEDS: FUROSEMIDE 10 MG/ML 2 ML VIAL IV SCH (09:32)
[2018-07-13] MEDS: ASPIRIN 81 MG PO SCH (09:32)
[2018-07-13] MEDS: ISOSORBIDE MONONITRATE ER 60 MG TAB.ER.24H PO SCH (09:32)
[2018-07-13] MEDS: CLOPIDOGREL 75 MG TAB PO SCH (09:32)
[2018-07-13] MEDS: amLODIPine 10 MG TAB PO SCH (09:32)
[2018-07-13] MEDS: FERROUS SULFATE 325 MG TAB PO SCH (09:33)
[2018-07-13] MEDS: NICOTINE 14MG/24HR PATCH TRANSDERM SCH (09:34)
[2018-07-13] MEDS: INSULIN DETEMIR 100 UNIT/ML 10 ML VIAL SQ SCH (09:41)
[2018-07-13] MEDS: PREGABALIN 100 MG CAP PO SCH (09:42)
--- NOTE | 2018-07-13 11:13 | CDI ---
Last Revision, October 2017 Documentation Clarification Form Date: 07/13/2018 11:02:44 AM From: Naima HolleyAndradeKELLE clayton, CCDS Admit Date: 07/04/2018 8:21:00 PM Patient Name: Gokul Lomas Visit Number: [id number] Discharge Date: ATTENTION: The Clinical Documentation Specialists (CDI) and [facility] Coding Staff appreciate your assistance in clarifying documentation. Please respond to the clarification below the line at the bottom and electronically sign. The CDI & [facility] Coding staff will review the response and follow-up if needed. Please note: Queries are made part of the Legal Health Record. If you have any questions, please contact the author of this message via ITS. Candido Machuca, DO: 67 yo male, admitted with chest pain & new onset atrial fibrillation. Diagnosed with Acute Kidney Injury along with Acute on Chronic Diastolic CHF and hypertension. Per progress notes by cardiology, patient is also diagnosed with CKD, nos. History/Risk Factors: Diastolic CHF, Hypertension, DM II, CVA/TIA, DC and previous CABG. Clinical Indicators: Admission BUN 36, Cr 2.49, GFR 25 Current BUN 22, Cr 1.93, GFR 35 Patients Baseline: unknown or not documented. Initial Treatment: IV Lasix, IV Lopressor, IV Heparin, IV fluid bolus, IV fl 75 , IV MagSulf, IV Nitro. Patients medications include: Lyrica, Iron, Effexor, Glucophage, Insulin sc, Hydroxyurea, Lipitor, Norvasc, Lopressor, Hydrea, Plavix, Ecotrin Please document your opinion: do you agree with the claims counsel statement regarding CKD and if so, please stage: CKD Stage 1 (GFR > 90) CKD Stage 2 (GFR 60-89) CKD Stage 3 (GFR 30-59) CKD Stage 4 (GFR 15-29) CKD Stage 5 (GFR <15) Other, please specify Unable to determine MTDD
[2018-07-13 11:53] VITALS: RESP 16; TEMP 97.5
[2018-07-13 12:49] VITALS: BP 118/43; PULSE 78
--- NOTE | 2018-07-13 13:38 | P.DS ---
Providers Date of admission: 07/04/18 20:21 Expected date of discharge: 07/13/18 Attending physician: Kendy Leiva Consults: 07/04/18 20:22 Consult Physician Routine Consulting Provider: Yanique Weber Consult Reason/Comments: A. fib, NSTEMI Do you want consulting provider notified?: Already Contacted 07/05/18 09:29 Consult Physician Urgent Consulting Provider: Candido Choudhary Consult Reason/Comments: renal failure Do you want consulting provider notified?: Yes 07/05/18 13:06 Consult Physician Routine Consulting Provider: Candido Choudhary Consult Reason/Comments: arf Do you want consulting provider notified?: Yes 07/06/18 12:19 Consult Physician Stat Consulting Provider: Evelin Manley Consult Reason/Comments: new onset resp distress Do you want consulting provider notified?: Yes 07/10/18 11:11 Consult Physician Stat Consulting Provider: Dominic Butler Consult Reason/Comments: possible inpatient rehab Do you want consulting provider notified?: Yes Primary care physician: [facility] Course: Final Diagnoses: 1. acute non-STEMI 2.atrial fibrillation with RVR, now controlled 3. Acute hypoxic respiratory failure secondary to acute CHF exacerbation, diastolic dysfunction, EF 55-60%, cardiogenic pulmonary edema secondary to acute non-STEMI 4. Hypercalcemia on admission, treated with Zometa, resolved 5. anemia of chronic disease,iron deficient 6. Acute renal failure, possibly prerenal, acute tubular necrosis secondary to hypercalcemia, improving. 7. DM II6 diabetes mellitus type 2 8. CAD, history of TAVR,CABG - both in 2016 9. History of CVA, TIA 10. History of nicotine dependence 11. Hypertension 12. Mild to moderate mitral regurgitation Hospital course:this is a 67-year-old gentleman admitted with acute non-STEMI, acute hypoxic respiratory failure, CHF exacerbation, possible pneumonia,acute renal failure and multiple other medical issues.Evaluated by cardiology and patient currently not a candidate for cardiac catheterization with medical therapy being maximized. Evaluated by a nephrology, pulmonary. Required transfer to the ICU for acute hypoxic respiratory failure, required Bipap. Diuresed on Lasix IV push well. Significant clinical improvement. Patient has been cleared for discharge by all consults. Patient is being discharged to [facility] rehab in a stable condition with guarded prognosis. EXAM: GENERAL: sitting up in bed, no acute distress CARDIOVASCULAR: S1, S2 muffled. systolic murmur RESPIRATION: Breath sounds diminished in the bases. ABDOMEN: Soft, nontender . No guarding. no masses palpable. Bowel sounds heard. NERVOUS SYSTEM: No focal deficits. The impression and plan of care has been dictated as directed. : I performed a history and examination of this patient, discussed the same with the dictator. I agree with the dictator's note ,documented as a scribe. Any additional findings or plans will be noted. Time taken: 35 minutes Patient Condition at Discharge: Stable Plan - Discharge Summary Discharge Rx Participant: No New Discharge Prescriptions: New Acetaminophen Tab [Tylenol] 650 mg PO Q6HR PRN tab PRN Reason: Mild Pain Or Fever > 100.5 Aspirin 81 mg PO DAILY chew hydrALAZINE HCL [Apresoline] 25 mg PO TID tab INSULIN LISPRO (HumaLOG) [humaLOG] 0 unit SQ ACHS #1 vial Isosorbide Mononitrate ER [Imdur] 60 mg PO DAILY tab.er.24h Nicotine 14Mg/24Hr Patch [Habitrol] 1 patch TRANSDERM DAILY patch Pantoprazole [Protonix] 40 mg PO AC-BRKFST tablet. Furosemide [Lasix] 40 mg PO DAILY #1 tablet Continue amLODIPine BESYLATE [Norvasc] 10 mg PO DAILY Metoprolol Tartrate [Lopressor] 50 mg PO BID Insulin Glargine [Lantus] 35 unit SQ DAILY Clopidogrel [Plavix] 75 mg PO DAILY Ferrous Sulfate [Iron (65 MG Elemental)] 325 mg PO DAILY Levothyroxine Sodium [Synthroid] 125 mcg PO DAILY Pregabalin [Lyrica] 200 mg PO BID Venlafaxine HCl [Effexor XR] 75 mg PO HS prednisoLONE ACETATE 1% OPHTH [Pred Forte 1%] 1 drops RIGHT EYE Q4HR Atorvastatin [Lipitor] 20 mg PO HS Discontinued Aspirin EC [Ecotrin] 325 mg PO DAILY metFORMIN HCL [Glucophage] 500 mg PO BID Discharge Medication List Insulin Glargine [Lantus] 35 unit SQ DAILY 02/17/16 [History] Metoprolol Tartrate [Lopressor] 50 mg PO BID 02/17/16 [History] amLODIPine BESYLATE [Norvasc] 10 mg PO DAILY 02/17/16 [History] Clopidogrel [Plavix] 75 mg PO DAILY 03/11/16 [History] Ferrous Sulfate [Iron (65 MG Elemental)] 325 mg PO DAILY 03/11/16 [History] Levothyroxine Sodium [Synthroid] 125 mcg PO DAILY 06/14/18 [History] Atorvastatin [Lipitor] 20 mg PO HS 07/04/18 [History] Pregabalin [Lyrica] 200 mg PO BID 07/04/18 [History] Venlafaxine HCl [Effexor XR] 75 mg PO HS 07/04/18 [History] prednisoLONE ACETATE 1% OPHTH [Pred Forte 1%] 1 drops RIGHT EYE Q4HR 07/04/18 [ History] Acetaminophen Tab [Tylenol] 650 mg PO Q6HR PRN tab 07/13/18 [Rx] Aspirin 81 mg PO DAILY chew 07/13/18 [Rx] Furosemide [Lasix] 40 mg PO DAILY #1 tablet 07/13/18 [Rx] INSULIN LISPRO (HumaLOG) [humaLOG] 0 unit SQ ACHS #1 vial 07/13/18 [Rx] Isosorbide Mononitrate ER [Imdur] 60 mg PO DAILY tab.er.24h 07/13/18 [Rx] Nicotine 14Mg/24Hr Patch [Habitrol] 1 patch TRANSDERM DAILY patch 07/13/18 [Rx] Pantoprazole [Protonix] 40 mg PO AC-BRKFST tablet. 07/13/18 [Rx] hydrALAZINE HCL [Apresoline] 25 mg PO TID tab 07/13/18 [Rx] Follow up Appointment(s)/Referral(s): Rik Cole MD [STAFF PHYSICIAN] - 2 Weeks Dominic Butler MD [STAFF PHYSICIAN] - 3 Days Candido Choudhary DO [STAFF PHYSICIAN] - 07/14/18 Lexus Abreu MD [STAFF PHYSICIAN] - 3 Days [facility] [Primary Care Provider] - 1 Week (After discharge from inpatient rehab) Activity/Diet/Wound Care/Special Instructions: [facility] inpatient rehab. COnfirm cardiology F/U apt. CBC, BMP in am DIet: Consist. carb. Actvity: limited Till F/U PVR,Bladder scan every 4 hrs, st. cath as per policy
== END 2018-07-13 15:36 | DRG 280 ==
LOC: EC 18:29 → 6SEL 20:21 → 6ICU 07-06 15:28 → 6SEL 07-11 12:22
PROVIDERS: ADMIT Hospitalist; ATTEND Hospitalist
PROC: 5A09557 Assistance with Respiratory Ventilation, Greater than 96 Consecutive Hours, Continuous Positive Airway Pressure (ICD-10-PCS; principal; 2018-07-06)
DX: I21.4 Non-ST elevation (NSTEMI) myocardial infarction (principal); I50.33 Acute on chronic diastolic (congestive) heart failure; J96.01 Acute respiratory failure with hypoxia; N17.0 Acute kidney failure with tubular necrosis; G93.40 Encephalopathy, unspecified; I69.354 Hemiplegia and hemiparesis following cerebral infarction affecting left non-dominant side; I13.0 Hypertensive heart and chronic kidney disease with heart failure and stage 1 through stage 4 chronic kidney disease, or unspecified chronic kidney disease; E11.22 Type 2 diabetes mellitus with diabetic chronic kidney disease; E11.42 Type 2 diabetes mellitus with diabetic polyneuropathy; E11.51 Type 2 diabetes mellitus with diabetic peripheral angiopathy without gangrene; I48.0 Paroxysmal atrial fibrillation; E83.52 Hypercalcemia; E83.42 Hypomagnesemia; D50.9 Iron deficiency anemia, unspecified; Z66 Do not resuscitate; I34.0 Nonrheumatic mitral (valve) insufficiency; D63.8 Anemia in other chronic diseases classified elsewhere; N18.9 Chronic kidney disease, unspecified; E87.6 Hypokalemia; I25.10 Atherosclerotic heart disease of native coronary artery without angina pectoris; E78.5 Hyperlipidemia, unspecified; G40.909 Epilepsy, unspecified, not intractable, without status epilepticus; E03.9 Hypothyroidism, unspecified; I25.2 Old myocardial infarction; M21.372 Foot drop, left foot; R26.2 Difficulty in walking, not elsewhere classified; F17.210 Nicotine dependence, cigarettes, uncomplicated; Z71.6 Tobacco abuse counseling; Z79.82 Long term (current) use of aspirin; Z79.02 Long term (current) use of antithrombotics/antiplatelets; Z79.4 Long term (current) use of insulin; Z79.890 Hormone replacement therapy; Z79.899 Other long term (current) drug therapy; Z87.01 Personal history of pneumonia (recurrent); Z95.1 Presence of aortocoronary bypass graft; Z95.2 Presence of prosthetic heart valve; Z95.5 Presence of coronary angioplasty implant and graft; Z77.098 Contact with and (suspected) exposure to other hazardous, chiefly nonmedicinal, chemicals; Z82.49 Family history of ischemic heart disease and other diseases of the circulatory system; Z85.46 Personal history of malignant neoplasm of prostate; Z98.42 Cataract extraction status, left eye; Z98.41 Cataract extraction status, right eye; Z96.1 Presence of intraocular lens
CPT/HCPCS: 36415; 36600; 71045; 80048; 80053; 81003; 82550; 82553; 82805; 83036; 83735; 83880; 83970; 84100; 84132; 84484; 85025; 85610; 85730; 93005; 93306; 94660; 96365; 96366; 96368; 96375; 96376; 99291

== ENCOUNTER 2018-07-28 12:39 | Inpatient (IN) | payer MEDICARE ==
[2018-07-28 18:04] LABS: Glucose,Whole Blood 171 mg/dL (75-99)
[2018-07-28] MEDS ORDERED: TEMAZEPAM 15 MG CAP PO PRN (18:21)
[2018-07-28] MEDS ORDERED: ALPRAZolam 0.25 MG TAB PO PRN (18:21)
[2018-07-28] MEDS ORDERED: oxyCODONE-APAP 5-325MG 1 EACH TAB PO PRN (18:21)
[2018-07-28] MEDS ORDERED: ACETAMINOPHEN TAB 325 MG TAB PO PRN (18:21)
[2018-07-28] MEDS ORDERED: NALOXONE 0.4 MG/ML 1 ML VIAL IV PRN (18:21)
[2018-07-28] MEDS ORDERED: HYDROmorphone 1 MG/ML 1 ML SYRINGE IVP PRN (18:24)
[2018-07-28 19:16] LABS: Albumin 3.1 g/dL (3.5-5.0); Calcium 9.1 mg/dL (8.4-10.2); Potassium 4.6 mmol/L (3.5-5.1); Total Bilirubin 0.3 mg/dL (0.2-1.3)
[2018-07-28 19:19] LABS: Basophils % (A) 0 %; Eosinophils # (A) 0.4 k/uL (0-0.7); Eosinophils % (A) 6 %; HCT 26.9 % (39.0-53.0); HGB 8.5 gm/dL (13.0-17.5); Hypochromasia Marked; Lymphocytes # (A) 1.5 k/uL (1.0-4.8); Lymphocytes % (A) 22 %; MCH 36.2 pg (25.0-35.0); MCHC 31.4 g/dL (31.0-37.0); MCV 115.5 fL (80.0-100.0); Macrocytosis Marked; Monocytes # (A) 0.5 k/uL (0-1.0); Monocytes % (A) 7 %; Neutrophils # (A) 4.2 k/uL (1.3-7.7); Neutrophils % (A) 62 %; Platelet Count 556 k/uL (150-450); RBC 2.33 m/uL (4.30-5.90); RDW 14.6 % (11.5-15.5); WBC 6.7 k/uL (3.8-10.6)
[2018-07-28 19:27] LABS: Prothrombin Time 10.2 sec (9.0-12.0)
[2018-07-28 19:35] LABS: Polychromasia Present
[2018-07-28 20:42] LABS: Glucose,Whole Blood 214 mg/dL (75-99)
[2018-07-28] MEDS: SODIUM CHLORIDE 0.9% 1,000 ML IV SCH (21:01)
[2018-07-28 21:14] LABS: Amorphous Sediment,Urine Rare /hpf; Appearance,Urine Clear (Clear); Bacteria,Urine Rare /hpf; Bilirubin,Urine Negative (Negative); Blood,Urine Trace (Negative); Color,Urine Light Yellow; Glucose,Urine (UA) Negative (Negative); Hyaline Casts,Urine 4 /lpf (0-2); Ketones,Urine Negative (Negative); Leukocyte Esterase,Urine Trace (Negative); Mucus,Urine Rare /hpf; Nitrite,Urine Negative (Negative); PH, Urine 6.5 (5.0-8.0); Protein,Urine Trace (Negative); RBC,Urine 1 /hpf (0-5); Specific Gravity,Urine 1.005 (1.001-1.035); Urobilinogen,Urine <2.0 mg/dL (<2.0); WBC,Urine 2 /hpf (0-5)
[2018-07-28] MEDS: ATORVASTATIN 20 MG TAB PO SCH (21:20)
[2018-07-28] MEDS: METOPROLOL TARTRATE 50 MG TAB PO SCH (21:20)
[2018-07-28] MEDS: VENLAFAXINE HCL ER 75 MG CAP PO SCH (21:20)
[2018-07-28] MEDS: INSULIN ASPART 100 UNIT/ML 1 ML 10 ML VIAL SQ SCH (21:21)
[2018-07-28] MEDS: AMOXIC-POT CLAV 875-125MG 1 EACH TAB PO SCH (21:21)
[2018-07-28] MEDS: PREGABALIN 100 MG CAP PO SCH (21:30)
[2018-07-28] MEDS: hydrALAZINE HCL 25 MG TAB PO SCH (21:33)
[2018-07-28] MEDS ORDERED: HEPARIN SODIUM,PORCINE 5,000 UNIT/ML 1 ML VIAL IV PRN (22:12)
[2018-07-28] MEDS: HEPARIN SOD,PORK IN 0.45% NACL 25,000 UNIT in 0.45% NACL 1 500ML.BAG IV SCH (23:20)
[2018-07-29] MEDS ORDERED: ASPIRIN 325 MG TAB PO STA (05:20)
[2018-07-29] MEDS ORDERED: ATORVASTATIN 80 MG TAB PO STA (05:20)
[2018-07-29 05:49] LABS: Glucose,Whole Blood 134 mg/dL (75-99)
[2018-07-29 05:52] LABS: Basophils % (A) 1 %; Eosinophils # (A) 0.5 k/uL (0-0.7); Eosinophils % (A) 6 %; HCT 28.1 % (39.0-53.0); HGB 8.6 gm/dL (13.0-17.5); Hypochromasia Marked; Lymphocytes # (A) 1.3 k/uL (1.0-4.8); Lymphocytes % (A) 15 %; MCH 35.8 pg (25.0-35.0); MCHC 30.8 g/dL (31.0-37.0); MCV 116.2 fL (80.0-100.0); Mean Platelet Volume 7.4; Monocytes # (A) 0.5 k/uL (0-1.0); Monocytes % (A) 6 %; Neutrophils # (A) 5.9 k/uL (1.3-7.7); Neutrophils % (A) 70 %; Platelet Count 538 k/uL (150-450); RBC 2.42 m/uL (4.30-5.90); RDW 14.6 % (11.5-15.5); WBC 8.4 k/uL (3.8-10.6)
[2018-07-29 05:56] LABS: Macrocytosis Marked
[2018-07-29 05:57] LABS: Calcium 9.1 mg/dL (8.4-10.2); Potassium 4.6 mmol/L (3.5-5.1)
[2018-07-29] MEDS: METOPROLOL TARTRATE 50 MG TAB PO SCH ×2 (06:37→21:02)
[2018-07-29] MEDS: LEVOTHYROXINE 125 MCG TAB PO SCH (06:37)
[2018-07-29] MEDS: hydrALAZINE HCL 25 MG TAB PO SCH ×3 (06:37→21:01)
[2018-07-29] MEDS: PREGABALIN 100 MG CAP PO SCH ×2 (06:37→21:01)
[2018-07-29] MEDS: ISOSORBIDE MONONITRATE ER 60 MG TAB.ER.24H PO SCH (06:37)
[2018-07-29] MEDS: amLODIPine 10 MG TAB PO SCH (06:37)
[2018-07-29] MEDS: CLOPIDOGREL 75 MG TAB PO SCH (06:37)
[2018-07-29] MEDS: AMOXIC-POT CLAV 875-125MG 1 EACH TAB PO SCH ×2 (06:37→21:42)
[2018-07-29] MEDS: PANTOPRAZOLE 40 MG TABLET PO SCH (06:38)
[2018-07-29] MEDS: ASPIRIN 81 MG PO SCH (06:40)
[2018-07-29] MEDS: INSULIN ASPART 100 UNIT/ML 1 ML 10 ML VIAL SQ SCH ×4 (06:40→21:01)
[2018-07-29 07:51] LABS: Glucose,Whole Blood 139 mg/dL (75-99)
[2018-07-29] MEDS ORDERED: SODIUM CHLORIDE 0.9% 500 ML IV ONE (07:57)
[2018-07-29 07:58] LABS: ABG Base Excess -1.9 mmol/L; ABG HCO3 22 mmol/L (21-25); ABG Oxygen Saturation 95.9 % (94-97); ABG PCO2 31 mmHg (35-45); ABG PH 7.46 (7.35-7.45); ABG PO2 71 mmHg (83-108); ABG TCO2 23 mmol/L (19-24)
--- NOTE | 2018-07-29 08:31 | XR ---
EXAMINATION TYPE: XR chest 1V portable DATE OF EXAM: 07/29/2018 HISTORY: SOB. REFERENCE: Previous study dated 07/11/2018. FINDINGS: There has been a midline sternotomy. The heart is enlarged. There is vascular congestion and pulmonary edema. Pleural spaces appear clear. IMPRESSION: WORSENING CHANGES OF CONGESTIVE HEART FAILURE.
--- NOTE | 2018-07-29 08:50 | CT ---
EXAMINATION TYPE: CT brain wo con DATE OF EXAM: 07/29/2018 COMPARISON: Previous study dated 03/12/2016 HISTORY: Altered mental status CT DLP: 1047.1 mGycm Automated exposure control for dose reduction was used. FINDINGS: There is extensive vascular calcification present. There are bilateral cerebellar infarcts unchanged from previous. There is an old infarct involving the caudate nucleus on the right. There is diffuse p eriventricular white matter lucency compatible with chronic ischemia. There is mild sulcal prominence and ventriculomegaly, compatible with atrophic change. No acute focal lesion, mass effect or midline shift is seen. I do not see evidence of intracranial blood. There is mild mucoperiosteal thickening involving the ethmoid sinuses. The bony calvarium is intact. IMPRESSION: 1. NO ACUTE INTRACRANIAL ABNORMALITY. 2. BILATERAL CEREBELLAR AND RIGHT CAUDATE NUCLEAR INFARCT. 3. DEGENERATIVE CHANGE. 4. MILD, CHRONIC ETHMOIDAL SINUS MUCOSAL DISEASE.
[2018-07-29] MEDS: FUROSEMIDE 40 MG TAB PO SCH (09:53)
[2018-07-29] MEDS: NICOTINE 14MG/24HR PATCH TRANSDERM SCH (10:03)
[2018-07-29] MEDS: INSULIN DETEMIR 100 UNIT/ML 10 ML VIAL SQ SCH (10:03)
[2018-07-29 12:16] LABS: Glucose,Whole Blood 192 mg/dL (75-99)
[2018-07-29] MEDS: FERROUS SULFATE 325 MG TAB PO SCH (13:30)
[2018-07-29 13:44] LABS: Hemoglobin A1C 5.9 % (4.0-6.0)
[2018-07-29] MEDS ORDERED: IV FLUID CONTINUATION 1,000 ML IV ONE (15:30)
[2018-07-29] MEDS ORDERED: LIDOCAINE 1% INJ 10MG/ML (20 ML MDV) ONE (15:52)
[2018-07-29] MEDS ORDERED: MIDAZOLAM 2 MG/2 ML VIAL ONE (15:52)
[2018-07-29] MEDS ORDERED: MIDAZOLAM 2 MG/2 ML VIAL IVP ONE (15:58)
[2018-07-29] MEDS: LIDOCAINE 1% INJ 10MG/ML (20 ML MDV) SQ ONE ×2 (15:59→16:00)
[2018-07-29] MEDS ORDERED: BIVALIRUDIN BOLUS 250 MG/50 ML IV ONE (16:10)
[2018-07-29] MEDS ORDERED: BIVALIRUDIN 250 MG in SODIUM CHLORIDE 0.9% 50 ML IV ONE (16:11)
[2018-07-29] MEDS ORDERED: niCARdipine 25 MG/10 ML VIAL ONE (16:15)
[2018-07-29] MEDS ORDERED: NITROGLYCERIN SL TABS 0.4 MG TAB SUBLINGUAL PRN (16:27)
[2018-07-29] MEDS ORDERED: RX INFO: IV CONTRAST WAS GIVEN 1 EACH MISC MISCELLANE PRN (16:27)
[2018-07-29] MEDS ORDERED: MAG HYDROX/AL HYDROX/SIMETH 30 ML CUP PO PRN (16:27)
[2018-07-29] MEDS ORDERED: ATROPINE SULFATE 0.1 MG/ML 10ML SYRINGE IV PRN (16:27)
[2018-07-29] MEDS ORDERED: ZOLPIDEM 5 MG TAB PO PRN (16:27)
[2018-07-29] MEDS ORDERED: SODIUM CHLORIDE 0.9% 1,000 ML IV SCH (16:30)
[2018-07-29] MEDS ORDERED: CLOPIDOGREL 75 MG TAB ONE (16:40)
[2018-07-29] MEDS ORDERED: CLOPIDOGREL 75 MG TAB PO ONE (16:42)
[2018-07-29] MEDS ORDERED: IOPAMIDOL-370 125ML BTL INJ ONE (16:42)
[2018-07-29 17:09] LABS: Glucose,Whole Blood 80 mg/dL (75-99)
[2018-07-29] MEDS: SODIUM CHLORIDE 0.9% 1,000 ML IV SCH (18:40)
[2018-07-29 20:59] LABS: Glucose,Whole Blood 144 mg/dL (75-99)
[2018-07-29] MEDS: ATORVASTATIN 20 MG TAB PO SCH (21:01)
--- NOTE | 2018-07-29 21:08 | P.HPIM ---
History of Present Illness Gokul Bryant a 68 y.o.malewith a past medical history of CABG, history of CVA with residual left-sided weakness, diabetes type 2, hypertension, hyperlipidemia, aortic TAVR procedure who was recently treated at [facility] for acute hypoxic respiratory failure secondary to pulmonary edema and acute non-ST elevated AR. Patient was transferred to [facility] for rehabilitation. Patient is being followed at the rehabilitation. On 07/19/2018 patient developed chest pain and was also found to have atrial fibrillation with rapid ventricular rate and shortness of breath. Patient was transferred to medical intensive care unit for further management. Patient was also hypotensive with blood pressure 84/52 on admission. Patient was started on Cardizem drip and nitro drip. Cardiology and pulmonary was consulted. Patient was found to have elevated troponin level 0.106, 0.126 and 0.115.proBNP is 7205 at [facility] Creatinine was 1.4-1.8 and on this admission it is 2.0 Currently patient is still in atrial fibrillation but rate is controlled and on the low side Chest x-ray showed pulmonary vascular congestion.however when he was at [facility] his dropped in wt from [address] of the brain : no acute hemorrhage pt underwent cardiac cath today and s/p stent placement , and he was transferred to ICU for further care of note pt was on xarelto 15 mg which is on hold on this admission pt has iyer re-inserted twice at [facility] due to urine retension of more than 300 cc when i saw pt in ICU he was sleepy from post-op Review of Systems REVIEW OF SYSTEMS: CONSTITUTIONAL: No fever, no malaise, no fatigue. HEENT: No recent visual problems or hearing problems. Denied any sore throat. CARDIOVASCULAR: No orthopnea, PND, no palpitations, no syncope. PULMONARY: No shortness of breath, no cough, no hemoptysis. GASTROINTESTINAL: No diarrhea, no nausea, no vomiting, no abdominal pain. Normoactive bowel sounds. NEUROLOGICAL: No headaches, no weakness, no numbness. HEMATOLOGICAL: Denies any bleeding or petechiae. GENITOURINARY: Denies any burning micturition, frequency, or urgency. MUSCULOSKELETAL/RHEUMATOLOGICAL: Denies any joint pain, swelling, or any muscle pain. ENDOCRINE: Denies any polyuria or polydipsia. Past Medical History Past Medical History: CVA/TIA, Diabetes Mellitus, Hyperlipidemia, Hypertension, Myocardial Infarction (AR), Neurologic Disorder, Pneumonia, Seizure Disorder, Thyroid Disorder Additional Past Medical History / Comment(s): Pt admitted 07/04/18 with NSTEMI, afib RVR. Other Hx: STROKE AFFECTED LT SIDE arm and leg, LT FOOT DRAG USES A BRACE, IDDM type II, hyponatremia with metabolic encephalopathy, 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 [employer] [id number], HAD SOME SKIN DISEASE WHERE HIS HANDS AND FEET WOULD BLISTER/PEEL HAD BX DONE-never found cause, hypothyroid, chronic iron anemia, PVD L leg. Last Myocardial Infarction Date:: 02/17/2016 History of Any Multi-Drug Resistant Organisms: None Reported Past Surgical History: Coronary Bypass/CABG, Heart Catheterization, Orthopedic Surgery Additional Past Surgical History / Comment(s): 02/19/16 cardiac cath, 02/24/16 CABG quadrupal with aortic valve replacement (TAVR), RT HAND INDEX FINGER BONE CHIP REMOVED, RT WRIST(JAMMED) PT STATED THEY CUT THE BONE AND REALIGNED IT, colonoscopy, bilateral cataract removals/lens implants. Past Anesthesia/Blood Transfusion Reactions: No Reported Reaction Past Psychological History: No Psychological Hx Reported Additional Psychological History / Comment(s): PT LIVES WITH HIS USES A CANE OR WALKER WHEN UP . PT RETIRED-WORKED IN [employer] AND SERVED IN THE [employer] [id number]. He does not drive but spouse does. He has no home care. Smoking Status: Former smoker Past Alcohol Use History: None Reported Additional Past Alcohol Use History / Comment(s): STARTED SMOKING AT AGE 18 SMOKED 1 PPD BUT STATES HE QUIT 02/2016, USED TO DRINK DAILY (18-24 PACK OF BEER PER DAY), has not drank or smoked since 02/17/16. Past Drug Use History: None Reported - Past Family History Father Family Medical History: Coronary Artery Disease (CAD) Additional Family Medical History / Comment(s): VASCULAR PROBLEMS/valve replacement. Mother Family Medical History: Coronary Artery Disease (CAD) Additional Family Medical History / Comment(s): VASCULAR PROBLEMS HAD PIG VALVE. Medications and Allergies Home Medications Medication Instructions Recorded Confirmed Type Insulin Glargine [Lantus] 35 unit SQ DAILY 02/17/16 07/28/18 History Metoprolol Tartrate [Lopressor] 50 mg PO BID 02/17/16 07/28/18 History amLODIPine BESYLATE [Norvasc] 10 mg PO DAILY 02/17/16 07/28/18 History Clopidogrel [Plavix] 75 mg PO DAILY 03/11/16 07/28/18 History Ferrous Sulfate [Iron (65 MG 325 mg PO DAILY 03/11/16 07/28/18 History Elemental)] Levothyroxine Sodium [Synthroid] 125 mcg PO DAILY 06/14/18 07/28/18 History Atorvastatin [Lipitor] 20 mg PO HS 07/04/18 07/28/18 History Pregabalin [Lyrica] 200 mg PO BID 07/04/18 07/28/18 History Venlafaxine HCl [Effexor XR] 75 mg PO HS 07/04/18 07/28/18 History Aspirin 81 mg PO DAILY chew 07/13/18 07/28/18 Rx Furosemide [Lasix] 40 mg PO DAILY #1 tablet 07/13/18 07/28/18 Rx INSULIN LISPRO (HumaLOG) [humaLOG] 0 unit SQ ACHS #1 vial 07/13/18 07/28/18 Rx Isosorbide Mononitrate ER [Imdur] 60 mg PO DAILY tab.er.24h 07/13/18 07/28/18 Rx Nicotine 14Mg/24Hr Patch [Habitrol] 1 patch TRANSDERM DAILY patch 07/13/18 Rx Pantoprazole [Protonix] 40 mg PO AC-BRKFST tablet. 07/13/18 07/28/18 Rx hydrALAZINE HCL [Apresoline] 25 mg PO TID tab 07/13/18 07/28/18 Rx Pamidronate [Aredia] 60 mg IV DAILY 07/28/18 07/28/18 History Allergies Allergy/AdvReac Type Severity Reaction Status Date / Time No Known Allergies Allergy Verified 07/04/18 19:29 Physical Exam Vitals: Vital Signs Temp Pulse Resp BP BP Pulse Ox 07/29/18 13:33 53 L 20 105/52 92 L 07/29/18 12:00 53 L 20 07/29/18 08:00 97.5 F L 55 L 18 93/59 87/49 95 07/29/18 04:00 98.2 F 101 H 18 133/64 93 L 07/29/18 00:00 98.7 F 115 H 16 138/78 97 07/28/18 20:00 97.6 F 85 16 103/56 93 L 07/28/18 17:21 97.1 F L 115 H 16 118/72 97 Intake and Output 07/29/18 07/29/18 07/29/18 06:59 14:59 22:59 Intake Total 450 180 Output Total 1300 Balance -850 180 Intake: IV 300 Sodium Chloride 0.9% 1, 300 000 ml @ 50 mls/hr IV . Q20H MAICO Rx#:[id number] Intake, IV Titration 150 Amount Heparin Sod,Pork in 0.45% 150 NaCl 25,000 unit In 0.45 % NaCl 1 500ml.bag @ 11. 561 UNITS/KG/HR 20 mls/hr IV .Q24H MAICO Rx#: [id number] Oral 180 Output: Urine 1300 Uretheral (Iyer) 1300 Other: Voiding Method Indwelling Catheter Indwelling Catheter Weight 84 kg Physical exam GENERAL: The patient is alert and oriented x3, not in any acute distress. Well developed, well nourished. HEENT: Pupils are round and equally reacting to light. EOMI. No scleral icterus. No conjunctival pallor. Normocephalic, atraumatic. No pharyngeal erythema. No thyromegaly. CARDIOVASCULAR: S1 and S2 present. No murmurs, rubs, or gallops. PULMONARY: Chest is clear to auscultation, no wheezing or crackles. ABDOMEN: Soft, nontender, nondistended, normoactive bowel sounds. No palpable organomegaly. MUSCULOSKELETAL: No joint swelling or deformity. EXTREMITIES: No cyanosis, clubbing, or pedal edema. NEUROLOGICAL: Gross neurological examination did not reveal any focal deficits. SKIN: No rashes. Results CBC & Chem 7: 07/29/18 05:32 07/29/18 05:32 Labs: Abnormal Lab Results - Last 24 Hours (Table) 07/28/18 07/28/18 07/28/18 Range/Units 17:46 18:42 18:42 RBC 2.33 L (4.30-5.90) m/uL Hgb 8.5 L (13.0-17.5) gm/dL Hct 26.9 L (39.0-53.0) % MCV 115.5 H (80.0-100.0) fL MCH 36.2 H (25.0-35.0) pg MCHC (31.0-37.0) g/dL Plt Count 556 H (150-450) k/uL ABG pH (7.35-7.45) ABG pCO2 (35-45) mmHg ABG pO2 (83-108) mmHg BUN 29 H (9-20) mg/dL Creatinine 2.04 H (0.66-1.25) mg/dL Glucose 137 H (74-99) mg/dL POC Glucose (mg/dL) 171 H (75-99) mg/dL Total Protein 6.0 L (6.3-8.2) g/dL Albumin 3.1 L (3.5-5.0) g/dL Urine Protein (Negative) Urine Blood (Negative) Ur Leukocyte Esterase (Negative) Amorphous Sediment (None) /hpf Urine Bacteria (None) /hpf Hyaline Casts (0-2) /lpf Urine Mucus (None) /hpf 07/28/18 07/28/18 07/29/18 Range/Units 20:40 21:00 05:32 RBC 2.42 L (4.30-5.90) m/uL Hgb 8.6 L (13.0-17.5) gm/dL Hct 28.1 L (39.0-53.0) % MCV 116.2 H (80.0-100.0) fL MCH 35.8 H (25.0-35.0) pg MCHC 30.8 L (31.0-37.0) g/dL Plt Count 538 H (150-450) k/uL ABG pH (7.35-7.45) ABG pCO2 (35-45) mmHg ABG pO2 (83-108) mmHg BUN (9-20) mg/dL Creatinine (0.66-1.25) mg/dL Glucose (74-99) mg/dL POC Glucose (mg/dL) 214 H (75-99) mg/dL Total Protein (6.3-8.2) g/dL Albumin (3.5-5.0) g/dL Urine Protein Trace H (Negative) Urine Blood Trace H (Negative) Ur Leukocyte Esterase Trace H (Negative) Amorphous Sediment Rare H (None) /hpf Urine Bacteria Rare H (None) /hpf Hyaline Casts 4 H (0-2) /lpf Urine Mucus Rare H (None) /hpf 07/29/18 07/29/18 07/29/18 Range/Units 05:32 05:49 07:49 RBC (4.30-5.90) m/uL Hgb (13.0-17.5) gm/dL Hct (39.0-53.0) % MCV (80.0-100.0) fL MCH (25.0-35.0) pg MCHC (31.0-37.0) g/dL Plt Count (150-450) k/uL ABG pH (7.35-7.45) ABG pCO2 (35-45) mmHg ABG pO2 (83-108) mmHg BUN 28 H (9-20) mg/dL Creatinine 2.03 H (0.66-1.25) mg/dL Glucose 113 H (74-99) mg/dL POC Glucose (mg/dL) 134 H 139 H (75-99) mg/dL Total Protein (6.3-8.2) g/dL Albumin (3.5-5.0) g/dL Urine Protein (Negative) Urine Blood (Negative) Ur Leukocyte Esterase (Negative) Amorphous Sediment (None) /hpf Urine Bacteria (None) /hpf Hyaline Casts (0-2) /lpf Urine Mucus (None) /hpf 07/29/18 07/29/18 Range/Units 07:56 11:57 RBC (4.30-5.90) m/uL Hgb (13.0-17.5) gm/dL Hct (39.0-53.0) % MCV (80.0-100.0) fL MCH (25.0-35.0) pg MCHC (31.0-37.0) g/dL Plt Count (150-450) k/uL ABG pH 7.46 H (7.35-7.45) ABG pCO2 31 L (35-45) mmHg ABG pO2 71 L (83-108) mmHg BUN (9-20) mg/dL Creatinine (0.66-1.25) mg/dL Glucose (74-99) mg/dL POC Glucose (mg/dL) 192 H (75-99) mg/dL Total Protein (6.3-8.2) g/dL Albumin (3.5-5.0) g/dL Urine Protein (Negative) Urine Blood (Negative) Ur Leukocyte Esterase (Negative) Amorphous Sediment (None) /hpf Urine Bacteria (None) /hpf Hyaline Casts (0-2) /lpf Urine Mucus (None) /hpf Thrombosis Risk Factor Assmnt - Choose All That Apply Any of the Below Risk Factors Present?: Yes Each Factor Represents 1 point: Acute AR, Obesity (BMI >25) Each Risk Factor Represents 2 Points: Age 61-74 years Other congenital or acquired thrombophilia - If yes, enter type in comment: No Thrombosis Risk Factor Assessment Total Risk Factor Score: 4 Thrombosis Risk Factor Assessment Level: Moderate Risk Assessment and Plan Assessment: Acute congestive heart failure with bilateral pleural effusion, currently on Lasix drip Acute Congestive heart failure , systolic as well as diastolic failure Acute hypoxic respiratory failure requrring oxygen per nasal cannula, 3 L/m Atrial fibrillation with rapid ventricular rate, rate controlled Chest pain with the mild troponin elevation. Possible non-ST elevated AR. Coronary artery disease with history of CABG Paroxysmal atrial fibrillation on anticoagulation Recent history of acute hypoxic respiratory failure secondary to cardiogenic pulmonary edema and NSTEMI Aortic stenosis with previous aortic TAVRprocedure rate Acute on chronic kidney disease stage III Diabetes type 2 History of CVA with residual left-sided weakness Diabetic peripheral neuropathy Chronic iron deficiency anemia History of prostate cancer Hypothyroidism Medical Debility. BPH Plan: Patent is transferred out to the intensive care unit for further care . Patient will be continued on telemetry monitoring. As per cardiology recommendation, pt is s/p catheterization on 07/29/18. He remains on multiple cardiac meds as listed.Continue current medications.pain management, continue with diuretic in view of his pulmonary congestion and HTN, continue with insulin , Monitor patient closely. Monitor labs and vitals and electrolytes. Further plans based on his clinical course. DVT prophylaxis on subcutaneous heparin (on hold ) GI prophylaxis Protonix prognosis is guarded
[2018-07-29] MEDS: VENLAFAXINE HCL ER 75 MG CAP PO SCH ×2 (21:42→23:03)
[2018-07-29] MEDS: HEPARIN SOD,PORK IN 0.45% NACL 25,000 UNIT in 0.45% NACL 1 500ML.BAG IV SCH (23:04)
[2018-07-30 04:55] LABS: Basophils % (A) 0 %; Eosinophils # (A) 0.5 k/uL (0-0.7); Eosinophils % (A) 6 %; HCT 25.4 % (39.0-53.0); HGB 7.9 gm/dL (13.0-17.5); Hypochromasia Marked; Lymphocytes # (A) 1.1 k/uL (1.0-4.8); Lymphocytes % (A) 12 %; MCHC 30.9 g/dL (31.0-37.0); MCV 119.7 fL (80.0-100.0); Mean Platelet Volume 6.9; Monocytes # (A) 0.6 k/uL (0-1.0); Monocytes % (A) 7 %; Neutrophils # (A) 6.6 k/uL (1.3-7.7); Neutrophils % (A) 74 %; Platelet Count 481 k/uL (150-450); RBC 2.12 m/uL (4.30-5.90); RDW 14.9 % (11.5-15.5); WBC 8.9 k/uL (3.8-10.6)
[2018-07-30 04:57] LABS: Macrocytosis Marked
[2018-07-30 05:16] LABS: Calcium 8.2 mg/dL (8.4-10.2); Magnesium 2.1 mg/dL (1.6-2.3); Potassium 4.2 mmol/L (3.5-5.1)
[2018-07-30] MEDS: LEVOTHYROXINE 125 MCG TAB PO SCH (06:43)
[2018-07-30 07:33] LABS: Glucose,Whole Blood 108 mg/dL (75-99)
[2018-07-30] MEDS: INSULIN ASPART 100 UNIT/ML 1 ML 10 ML VIAL SQ SCH ×4 (07:38→21:17)
[2018-07-30] MEDS: PANTOPRAZOLE 40 MG TABLET PO SCH (07:39)
[2018-07-30] MEDS: amLODIPine 10 MG TAB PO SCH (08:25)
[2018-07-30] MEDS: hydrALAZINE HCL 25 MG TAB PO SCH ×3 (08:25→21:16)
[2018-07-30] MEDS: ASPIRIN 81 MG PO SCH (08:25)
[2018-07-30] MEDS: INSULIN DETEMIR 100 UNIT/ML 10 ML VIAL SQ SCH (08:25)
[2018-07-30] MEDS: ISOSORBIDE MONONITRATE ER 60 MG TAB.ER.24H PO SCH (08:26)
[2018-07-30] MEDS: PREGABALIN 100 MG CAP PO SCH ×2 (08:26→21:16)
[2018-07-30] MEDS: CLOPIDOGREL 75 MG TAB PO SCH (08:26)
[2018-07-30] MEDS: FUROSEMIDE 40 MG TAB PO SCH (08:26)
[2018-07-30] MEDS: NICOTINE 14MG/24HR PATCH TRANSDERM SCH (08:27)
[2018-07-30] MEDS: AMOXIC-POT CLAV 875-125MG 1 EACH TAB PO SCH ×2 (08:54→21:17)
[2018-07-30] MEDS: METOPROLOL TARTRATE 50 MG TAB PO SCH (09:19)
--- NOTE | 2018-07-30 10:59 | P.CNPUL ---
History of Present Illness Consult date: 07/30/18 Reason for consult: dyspnea History of present illness: 68-year-old male patient who is known to me from previous admissions here at [facility]. The patient is known to have coronary artery disease and he has undergone previous bypass surgery. The patient also is post aortic valve replacement/T aVR procedure. The patient was in the hospital for an acute non-ST segment elevation myocardial infarction. He subsequently went into congestion heart failure and pulmonary edema. He was treated and he was sent to [facility] for further rehabilitation. He had a second LA with decompensated heart failure. At that point it was decided to bring this patient back for a cardiac catheterization. He is known to have previous CVA and left-sided weakness, diabetes, hypertension, hyperlipidemia and chronic renal failure. He also has chronic atrial fibrillation. The patient prior being taken to the [facility], developed issues with hypotension. He was given IV fluids. Subsequently was taken to the [facility] and he underwent stenting of the saphenous vein graft to obtuse marginal branch. During the same setting he was noted to have sinus bradycardia and cardiac cause and the patient has a transvenous pacemaker placed with a backup rate of 50. This morning he is awake and alert. History of any chest pain. He is on a combination of aspirin and Plavix. His cardiac rhythm is sinus he had he is in sinus bradycardia with a mid 50 range heart rate. His chest x-ray is showing cardiac megaly and a component of CHF. The patient is calm and comfortable without having any significant shortness of breath and is very much comfortable at rest. Function is stable with a creatinine of 1.7. His creatinine ranges between 1.4 and 1.8 and it has been up to 2 with certain days. No nausea. No vomiting. No chest pain. No bleeding complications per no other significant events overnight. He is awake and alert following commands and answering questions appropriately. Review of Systems Constitutional: Reports fatigue, Reports weakness Eyes: denies blurred vision, denies bulging eye, denies decreased vision Ears: deny: decreased hearing, ear discharge, earache, tinnitus Cardiovascular: Reports decreased exercise tolerance, Reports dyspnea on exertion, Reports irregular heart beat, Reports palpitations, Reports shortness of breath, Denies chest pain Respiratory: Reports dyspnea Gastrointestinal: Denies abdominal pain, Denies diarrhea, Denies nausea, Denies vomiting Genitourinary: Reports as per HPI Musculoskeletal: Reports limitation of motion, Reports muscle weakness Musculoskeletal: absent: ankle pain, ankle stiffness, ankle swelling Integumentary: Reports as per HPI Neurological: Reports as per HPI, Reports ataxia, Reports balance difficulties, Reports gait dysfunction, Reports weakness Psychiatric: Reports as per HPI Endocrine: Reports as per HPI, Reports fatigue Hematologic/Lymphatic: Reports as per HPI Allergic/Immunologic: Reports as per HPI Past Medical History Past Medical History: CVA/TIA, Diabetes Mellitus, Hyperlipidemia, Hypertension, Myocardial Infarction (LA), Neurologic Disorder, Pneumonia, Seizure Disorder, Thyroid Disorder Additional Past Medical History / Comment(s): Coronary artery disease, four- vessel bypass surgery, aortic valve replacement TAVR, prostate cancer, previous CVA, diabetes mellitus, hypertension, hyperlipidemia, chronic anemia, chronic smoker, previous history of agent orange exposure, there is history of skin disease of an unknown type, hypothyroidism, iron deficiency anemia, peripheral vascular disease, hematologic disease of an unknown type at this point in time and the patient has been seen by Dr. hidalgo and the patient has been maintained on Hydrea, peripheral neuropathy. 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 Last Myocardial Infarction Date:: 02/17/2016 History of Any Multi-Drug Resistant Organisms: None Reported Past Surgical History: Coronary Bypass/CABG, Heart Catheterization, Orthopedic Surgery Additional Past Surgical History / Comment(s): 02/19/16 cardiac cath, 02/24/16 CABG quadrupal with aortic valve replacement (TAVR), RT HAND INDEX FINGER BONE CHIP REMOVED, RT WRIST(JAMMED) PT STATED THEY CUT THE BONE AND REALIGNED IT, colonoscopy, bilateral cataract removals/lens implants. Past Anesthesia/Blood Transfusion Reactions: No Reported Reaction Past Psychological History: No Psychological Hx Reported Additional Psychological History / Comment(s): PT LIVES WITH HIS USES A CANE OR WALKER WHEN UP . PT RETIRED-WORKED IN [employer] AND SERVED IN THE [employer] [id number]. He does not drive but spouse does. He has no home care. Smoking Status: Former smoker Past Alcohol Use History: None Reported Additional Past Alcohol Use History / Comment(s): STARTED SMOKING AT AGE 18 SMOKED 1 PPD BUT STATES HE QUIT 02/2016, USED TO DRINK DAILY (18-24 PACK OF BEER PER DAY), has not drank or smoked since 02/17/16. Past Drug Use History: None Reported - Past Family History Father Family Medical History: Coronary Artery Disease (CAD) Additional Family Medical History / Comment(s): VASCULAR PROBLEMS/valve replacement. Mother Family Medical History: Coronary Artery Disease (CAD) Additional Family Medical History / Comment(s): VASCULAR PROBLEMS HAD PIG VALVE. Medications and Allergies Home Medications Medication Instructions Recorded Confirmed Type Insulin Glargine [Lantus] 35 unit SQ DAILY 02/17/16 07/28/18 History Metoprolol Tartrate [Lopressor] 50 mg PO BID 02/17/16 07/28/18 History amLODIPine BESYLATE [Norvasc] 10 mg PO DAILY 02/17/16 07/28/18 History Clopidogrel [Plavix] 75 mg PO DAILY 03/11/16 07/28/18 History Ferrous Sulfate [Iron (65 MG 325 mg PO DAILY 03/11/16 07/28/18 History Elemental)] Levothyroxine Sodium [Synthroid] 125 mcg PO DAILY 06/14/18 07/28/18 History Atorvastatin [Lipitor] 20 mg PO HS 07/04/18 07/28/18 History Pregabalin [Lyrica] 200 mg PO BID 07/04/18 07/28/18 History Venlafaxine HCl [Effexor XR] 75 mg PO HS 07/04/18 07/28/18 History Aspirin 81 mg PO DAILY chew 07/13/18 07/28/18 Rx Furosemide [Lasix] 40 mg PO DAILY #1 tablet 07/13/18 07/28/18 Rx INSULIN LISPRO (HumaLOG) [humaLOG] 0 unit SQ ACHS #1 vial 07/13/18 07/28/18 Rx Isosorbide Mononitrate ER [Imdur] 60 mg PO DAILY tab.er.24h 07/13/18 07/28/18 Rx Nicotine 14Mg/24Hr Patch [Habitrol] 1 patch TRANSDERM DAILY patch 07/13/18 Rx Pantoprazole [Protonix] 40 mg PO AC-[id number] tablet. 07/13/18 07/28/18 Rx hydrALAZINE HCL [Apresoline] 25 mg PO TID tab 07/13/18 07/28/18 Rx Pamidronate [Aredia] 60 mg IV DAILY 07/28/18 07/28/18 History Allergies Allergy/AdvReac Type Severity Reaction Status Date / Time No Known Allergies Allergy Verified 07/04/18 19:29 Physical Exam Vitals: Vital Signs Temp Pulse Pulse Resp BP BP Pulse Ox 07/30/18 10:00 55 L 23 122/54 97 07/30/18 09:00 52 L 12 122/54 93 L 07/30/18 08:00 97.9 F 54 L 23 97/55 96 07/30/18 07:00 57 L 23 97/55 96 07/30/18 06:00 55 L 9 L 128/58 94 L 07/30/18 05:00 51 L 25 H 117/57 96 07/30/18 04:00 54 L 22 150/58 91 L 07/30/18 03:00 55 L 25 H 125/58 94 L 07/30/18 02:00 52 L 13 122/57 96 07/30/18 01:00 49 L 22 106/51 95 07/30/18 00:00 98.0 F 53 L 18 134/54 95 07/29/18 23:04 53 L 12 142/48 99 07/29/18 23:00 53 L 12 142/48 97 07/29/18 22:00 53 L 12 132/49 99 07/29/18 21:00 56 L 15 137/67 95 07/29/18 20:00 98.4 F 55 L 12 126/47 99 07/29/18 19:00 57 L 22 98 07/29/18 18:30 55 L 12 97 07/29/18 18:15 57 L 22 97 07/29/18 18:00 58 L 14 95 07/29/18 17:45 58 L 21 92 L 07/29/18 17:30 56 L 14 93 L 07/29/18 17:15 56 L 18 94 L 07/29/18 17:02 98.1 F 73 39 H 142/62 95 07/29/18 17:00 14 07/29/18 13:33 53 L 20 105/52 92 L 07/29/18 12:00 53 L 20 Intake and Output 07/29/18 07/30/18 07/30/18 22:59 06:59 14:59 Intake Total 596 600 400 Output Total 2480 500 410 Balance -1884 100 -10 Intake: IV 471 400 200 Sodium Chloride 0.9% 1, 250 400 200 000 ml @ 50 mls/hr IV . Q20H [facility] Rx#:[id number] sodium chloride 0.9% 17 500ml pressure bag mitch Intake, IV Titration 75 Amount Sodium Chloride 0.9% 1, 75 000 ml @ 75 mls/hr IV . [id number] [facility] Rx#:[id number] Oral 50 200 200 Output: Urine 2480 500 410 Uretheral (Araujo) 750 75 Other: Voiding Method Indwelling Catheter Indwelling Catheter Indwelling Catheter Weight 84.2 kg 86.8 kg 86.8 kg Gen. appearance the patient is a mild degree of respirator distress. He is following some simple commands. He opens his eyes spontaneously. He is resting comfortably in bed and is not in acute respiratory distress at this point in time. Head exam was generally normal. There was no scleral icterus or corneal arcus. Mucous membranes were moist. Neck was supple and without jugular venous distension, thyromegaly, or carotid bruits. Carotids were easily palpable bilaterally. There was no adenopathy. Lungs sounds are diminished bilaterally and there is crackles in the mid in the lower lung alvarez and some few scattered expiratory wheeze. Heart sounds are regular, somewhat bradycardic, so no significant murmurs appreciated. No right ventricular heave or thrill. Abdominal exam revealed normal bowel sounds. The abdomen was soft, non-tender, and without masses, organomegaly, or appreciable enlargement of the abdominal aorta. Examination of the extremities revealed easily palpable radial, femoral and pedal pulses. There was no cyanosis, clubbing or edema. Examination of the skin revealed no evidence of significant rashes, suspicious appearing nevi or other concerning lesions. Neurologically, follows some simple commands. At times he is a bit restless and sized to reach out to his mask yet no significant agitation at this point in time. Left-sided weakness, chronic secondary to previous CVA No Babinski. No clonus. No pupil asymmetry. Results - Laboratory Findings CBC and BMP: 07/30/18 04:19 07/30/18 04:19 ABG ABG pH 7.46 (7.35-7.45) H 07/29/18 07:56 ABG pCO2 31 mmHg (35-45) L 07/29/18 07:56 ABG pO2 71 mmHg (83-108) L 07/29/18 07:56 ABG O2 Saturation 95.9 % (94-97) 07/29/18 07:56 PT/INR, D-dimer PT 10.2 sec (9.0-12.0) 07/28/18 18:42 INR 1.0 (<1.2) 07/28/18 18:42 Abnormal lab findings: Abnormal Labs 07/28/18 07/28/18 07/28/18 17:46 18:42 18:42 RBC 2.33 L Hgb 8.5 L Hct 26.9 L MCV 115.5 H MCH 36.2 H MCHC Plt Count 556 H ABG pH ABG pCO2 ABG pO2 Chloride Carbon Dioxide BUN 29 H Creatinine 2.04 H Glucose 137 H POC Glucose (mg/dL) 171 H Calcium Total Protein 6.0 L Albumin 3.1 L Urine Protein Urine Blood Ur Leukocyte Esterase Amorphous Sediment Urine Bacteria Hyaline Casts Urine Mucus 07/28/18 07/28/18 07/29/18 20:40 21:00 05:32 RBC 2.42 L Hgb 8.6 L Hct 28.1 L MCV 116.2 H MCH 35.8 H MCHC 30.8 L Plt Count 538 H ABG pH ABG pCO2 ABG pO2 Chloride Carbon Dioxide BUN Creatinine Glucose POC Glucose (mg/dL) 214 H Calcium Total Protein Albumin Urine Protein Trace H Urine Blood Trace H Ur Leukocyte Esterase Trace H Amorphous Sediment Rare H Urine Bacteria Rare H Hyaline Casts 4 H Urine Mucus Rare H 07/29/18 07/29/18 07/29/18 05:32 05:49 07:49 RBC Hgb Hct MCV MCH MCHC Plt Count ABG pH ABG pCO2 ABG pO2 Chloride Carbon Dioxide BUN 28 H Creatinine 2.03 H Glucose 113 H POC Glucose (mg/dL) 134 H 139 H Calcium Total Protein Albumin Urine Protein Urine Blood Ur Leukocyte Esterase Amorphous Sediment Urine Bacteria Hyaline Casts Urine Mucus 07/29/18 07/29/18 07/29/18 07:56 11:57 20:56 RBC Hgb Hct MCV MCH MCHC Plt Count ABG pH 7.46 H ABG pCO2 31 L ABG pO2 71 L Chloride Carbon Dioxide BUN Creatinine Glucose POC Glucose (mg/dL) 192 H 144 H Calcium Total Protein Albumin Urine Protein Urine Blood Ur Leukocyte Esterase Amorphous Sediment Urine Bacteria Hyaline Casts Urine Mucus 07/30/18 07/30/18 07/30/18 04:19 04:19 07:30 RBC 2.12 L Hgb 7.9 L Hct 25.4 L MCV 119.7 H MCH 37.0 H MCHC 30.9 L Plt Count 481 H ABG pH ABG pCO2 ABG pO2 Chloride 110 H Carbon Dioxide 20 L BUN 25 H Creatinine 1.79 H Glucose 122 H POC Glucose (mg/dL) 108 H Calcium 8.2 L Total Protein Albumin Urine Protein Urine Blood Ur Leukocyte Esterase Amorphous Sediment Urine Bacteria Hyaline Casts Urine Mucus - Diagnostic Findings Chest x-ray: image reviewed Assessment and Plan Plan: 1 recurrent non-ST segment elevation myocardial infarction complicated by heart failure. The patient underwent cardiac catheterization and subsequently saphenous vein graft stenting was performed to OM. The patient also developed sinus bradycardia/cardiac positive the patient currently has a transvenous pacemaker in place. Hemodynamically stable at this point in time. 2 coronary artery disease with previous four-vessel bypass surgery 3 congestion heart failure with an ejection fraction of 40-45% based on the most echocardiogram was done at [facility]. 4 chronic renal failure 5 chronic anemia 6 previous history aortic valve replacement TAVR 7 paroxysmal atrial fibrillation , currently in sinus bradycardia and the patient is a transvenous pacemaker in place 8 previous history of CVA with left-sided weakness 9 diabetes mellitus 10 diabetic peripheral neuropathy 11 peripheral vascular disease 12 hematologic disorder maintained on Hydrea on outpatient basis exact type is not known to me at this point 13 history of chronic iron deficiency anemia 14 prostate cancer 15 hypothyroidism 16 DNR/DNI CODE STATUS Plan Hold metoprolol till patient seen by cardiology. Monitor the cardiac rhythm. Transvenous pacemaker at the rate of 50 beats per minute as a backup. Oral Lasix 40 mg by mouth daily. Rest of the cardiac medications will be kept unchanged. Aspirin and Plavix. Monitor renal function. Pulmonary status is stable. We'll continue to follow and make further recommendations based on his progress.
[2018-07-30] MEDS: FERROUS SULFATE 325 MG TAB PO SCH (12:04)
[2018-07-30 12:05] LABS: Glucose,Whole Blood 107 mg/dL (75-99)
[2018-07-30] MEDS: SODIUM CHLORIDE 0.9% 1,000 ML IV SCH (12:09)
--- NOTE | 2018-07-30 12:15 | P.PN ---
Subjective Patient is resting comfortably in bed. He is to be underwent coronary stenting Intraoperatively he had a long sinus pause of greater than 8 seconds and the TVP was placed by Dr. Peralta. He has not had any further pauses since but the pacemaker was programmed to 50 beats a minute and after beta romaine dose yesterday he did pace for a little bit. On examination breath sounds are reduced bilaterally but no rhonchi no crackles Heart sounds are distant but soft Abdomen soft extremities warm Impression Non-Q wave myocardial infarction Critical coronary artery disease involving the ostium of the RCA status post stenting 1 episode of sinus pause/sinus arrest for 8 seconds during the procedure TVP placed Suggest Stop heparin Continue dual antiplatelet therapy Stop Imdur Switched from metoprolol to carvedilol for better blood pressure control. Carvedilol 6.25 mg twice daily Change the TVP programming to 30 bpm If he does not pace any further I will remove the TVP tomorrow Objective - Vital Signs Vital signs: Vital Signs Temp 97.9 F 07/30/18 08:00 Pulse 52 L 07/30/18 11:00 Resp 23 07/30/18 11:00 BP 153/52 07/30/18 11:00 Pulse Ox 96 07/30/18 11:00 Intake & Output 07/29/18 07/30/18 07/30/18 18:59 06:59 18:59 Intake Total 491 885 450 Output Total 2325 655 610 Balance -1834 230 -160 Weight 84.2 kg 86.8 kg 86.8 kg Intake: IV 311 560 250 Sodium Chloride 0.9% 1, 100 550 250 000 ml @ 50 mls/hr IV . Q20H [facility] Rx#:[id number] sodium chloride 0.9% 7 10 500ml pressure bag mitch Intake, IV Titration 75 Amount Sodium Chloride 0.9% 1, 75 000 ml @ 75 mls/hr IV . [id number] [facility] Rx#:[id number] Oral 180 250 200 Output: Urine 2325 655 610 Uretheral (Araujo) 750 75 Other: Voiding Method Indwelling Catheter Indwelling Catheter Indwelling Catheter ABP, PAP, CO, CI - Last Documented Arterial Blood Pressure 149/39 - Labs CBC & Chem 7: 07/30/18 04:19 07/30/18 04:19 Labs: Abnormal Lab Results - Last 24 Hours (Table) 07/29/18 07/29/18 07/30/18 Range/Units 11:57 20:56 04:19 RBC 2.12 L (4.30-5.90) m/uL Hgb 7.9 L (13.0-17.5) gm/dL Hct 25.4 L (39.0-53.0) % MCV 119.7 H (80.0-100.0) fL MCH 37.0 H (25.0-35.0) pg MCHC 30.9 L (31.0-37.0) g/dL Plt Count 481 H (150-450) k/uL Chloride (98-107) mmol/L Carbon Dioxide (22-30) mmol/L BUN (9-20) mg/dL Creatinine (0.66-1.25) mg/dL Glucose (74-99) mg/dL POC Glucose (mg/dL) 192 H 144 H (75-99) mg/dL Calcium (8.4-10.2) mg/dL 07/30/18 07/30/18 07/30/18 Range/Units 04:19 07:30 12:03 RBC (4.30-5.90) m/uL Hgb (13.0-17.5) gm/dL Hct (39.0-53.0) % MCV (80.0-100.0) fL MCH (25.0-35.0) pg MCHC (31.0-37.0) g/dL Plt Count (150-450) k/uL Chloride 110 H (98-107) mmol/L Carbon Dioxide 20 L (22-30) mmol/L BUN 25 H (9-20) mg/dL Creatinine 1.79 H (0.66-1.25) mg/dL Glucose 122 H (74-99) mg/dL POC Glucose (mg/dL) 108 H 107 H (75-99) mg/dL Calcium 8.2 L (8.4-10.2) mg/dL
--- NOTE | 2018-07-30 14:29 | P.PN ---
Subjective Gokul Ostsalome a 68 y.o.malewith a past medical history of CABG, history of CVA with residual left-sided weakness, diabetes type 2, hypertension, hyperlipidemia, aortic TAVR procedure who was recently treated at [facility] for acute hypoxic respiratory failure secondary to pulmonary edema and acute non-ST elevated ID. Patient was transferred to [facility] for rehabilitation. Patient is being followed at the rehabilitation. On 07/19/2018 patient developed chest pain and was also found to have atrial fibrillation with rapid ventricular rate and shortness of breath. Patient was transferred to medical intensive care unit for further management. Patient was also hypotensive with blood pressure 84/52 on admission. Patient was started on Cardizem drip and nitro drip. Cardiology and pulmonary was consulted. Patient was found to have elevated troponin level 0.106, 0.126 and 0.115.proBNP is 7205 at [facility] Creatinine was 1.4-1.8 and on this admission it is 2.0 Currently patient is still in atrial fibrillation but rate is controlled and on the low side Chest x-ray showed pulmonary vascular congestion.however when he was at [facility] his dropped in wt from [address] of the brain : no acute hemorrhage pt underwent cardiac cath today and s/p stent placement , and he was transferred to ICU for further care of note pt was on xarelto 15 mg which is on hold on this admission pt has iyer re-inserted twice at [facility] due to urine retension of more than 300 cc 07/30/18 Patient is more awake today. Was noticed to be ready cardiac with arteries at 50s. Metoprolol was held. Cardiology are following the case. Who recommended to DC heparin and continue with aspirin and Plavix and change metoprolol to Coreg for better proximal blood pressure control. With possible we'll discontinue with the transvenous pacemaker tomorrow. Patient currently on Coreg 6.25 mg by mouth twice a day. No leukocytosis and hemoglobin 7.9, compared to 8.6 yesterday. Follow-up hemoglobin level. Creatinine at baseline at 1.79. Sugars well controlled. Prognosis remains guarded. Cardiology and pulmonary/critical care team are following the patient and their input is appreciated. Objective - Vital Signs Vital signs: Vital Signs Temp 98.2 F 07/30/18 12:00 Pulse 48 L 07/30/18 14:00 Resp 12 07/30/18 14:00 BP 112/43 07/30/18 14:00 Pulse Ox 96 07/30/18 14:00 Intake & Output 07/29/18 07/30/18 07/30/18 18:59 06:59 18:59 Intake Total 491 885 750 Output Total 2325 655 1435 Balance -1834 230 -685 Weight 84.2 kg 86.8 kg 86.8 kg Intake: IV 311 560 400 Sodium Chloride 0.9% 1, 100 550 400 000 ml @ 50 mls/hr IV . Q20H [facility] Rx#:[id number] sodium chloride 0.9% 7 10 500ml pressure bag mitch Intake, IV Titration 75 Amount Sodium Chloride 0.9% 1, 75 000 ml @ 75 mls/hr IV . [id number] [facility] Rx#:[id number] Oral 180 250 350 Output: Urine 2325 655 1435 Uretheral (Iyer) 750 225 Other: Voiding Method Indwelling Catheter Indwelling Catheter Indwelling Catheter ABP, PAP, CO, CI - Last Documented Arterial Blood Pressure 149/39 - Labs CBC & Chem 7: 07/30/18 04:19 07/30/18 04:19 Labs: Abnormal Lab Results - Last 24 Hours (Table) 07/29/18 07/30/18 07/30/18 Range/Units 20:56 04:19 04:19 RBC 2.12 L (4.30-5.90) m/uL Hgb 7.9 L (13.0-17.5) gm/dL Hct 25.4 L (39.0-53.0) % MCV 119.7 H (80.0-100.0) fL MCH 37.0 H (25.0-35.0) pg MCHC 30.9 L (31.0-37.0) g/dL Plt Count 481 H (150-450) k/uL Chloride 110 H (98-107) mmol/L Carbon Dioxide 20 L (22-30) mmol/L BUN 25 H (9-20) mg/dL Creatinine 1.79 H (0.66-1.25) mg/dL Glucose 122 H (74-99) mg/dL POC Glucose (mg/dL) 144 H (75-99) mg/dL Calcium 8.2 L (8.4-10.2) mg/dL 07/30/18 07/30/18 Range/Units 07:30 12:03 RBC (4.30-5.90) m/uL Hgb (13.0-17.5) gm/dL Hct (39.0-53.0) % MCV (80.0-100.0) fL MCH (25.0-35.0) pg MCHC (31.0-37.0) g/dL Plt Count (150-450) k/uL Chloride (98-107) mmol/L Carbon Dioxide (22-30) mmol/L BUN (9-20) mg/dL Creatinine (0.66-1.25) mg/dL Glucose (74-99) mg/dL POC Glucose (mg/dL) 108 H 107 H (75-99) mg/dL Calcium (8.4-10.2) mg/dL Assessment and Plan Assessment: Acute congestive heart failure with bilateral pleural effusion, currently on Lasix drip Acute Congestive heart failure , systolic as well as diastolic failure Acute hypoxic respiratory failure requrring oxygen per nasal cannula, 3 L/m Atrial fibrillation with rapid ventricular rate, rate controlled Chest pain with the mild troponin elevation. Possible non-ST elevated ID. Coronary artery disease with history of CABG Paroxysmal atrial fibrillation on anticoagulation Recent history of acute hypoxic respiratory failure secondary to cardiogenic pulmonary edema and NSTEMI Aortic stenosis with previous aortic TAVRprocedure rate Acute on chronic kidney disease stage III Diabetes type 2 History of CVA with residual left-sided weakness Diabetic peripheral neuropathy Chronic iron deficiency anemia History of prostate cancer Hypothyroidism Medical Debility. BPH Plan: Patent is transferred out to the intensive care unit for further care . Patient will be continued on telemetry monitoring. As per cardiology recommendation, pt is s/p catheterization on 07/29/18. He remains on multiple cardiac meds as listed.Continue current medications.pain management, continue with diuretic in view of his pulmonary congestion and HTN, continue with insulin , Monitor patient closely. Monitor labs and vitals and electrolytes. Further plans based on his clinical course. DVT prophylaxis on subcutaneous heparin (on hold ) GI prophylaxis Protonix prognosis is guarded
[2018-07-30] MEDS: CARVEDILOL 6.25 MG TAB PO SCH (17:11)
[2018-07-30 17:13] LABS: Glucose,Whole Blood 112 mg/dL (75-99)
[2018-07-30 21:01] LABS: Glucose,Whole Blood 98 mg/dL (75-99)
[2018-07-30] MEDS: ATORVASTATIN 20 MG TAB PO SCH (21:16)
[2018-07-31 05:32] LABS: Basophils % (A) 0 %; Eosinophils # (A) 0.6 k/uL (0-0.7); Eosinophils % (A) 5 %; HCT 25.6 % (39.0-53.0); HGB 8.2 gm/dL (13.0-17.5); Hypochromasia Moderate; Lymphocytes % (A) 17 %; MCH 36.7 pg (25.0-35.0); MCHC 32.1 g/dL (31.0-37.0); Mean Platelet Volume 7.9; Monocytes # (A) 0.9 k/uL (0-1.0); Monocytes % (A) 8 %; Neutrophils # (A) 7.9 k/uL (1.3-7.7); Neutrophils % (A) 68 %; Platelet Count 531 k/uL (150-450); RBC 2.25 m/uL (4.30-5.90); RDW 14.7 % (11.5-15.5); WBC 11.7 k/uL (3.8-10.6)
[2018-07-31 05:36] LABS: Macrocytosis Marked
[2018-07-31 05:37] LABS: MCV 114.1 fL (80.0-100.0)
[2018-07-31 06:24] LABS: Calcium 8.2 mg/dL (8.4-10.2); Magnesium 2.2 mg/dL (1.6-2.3)
[2018-07-31] MEDS ORDERED: DEXTROSE 50%-WATER 50 ML SYRINGE IVP ONE (06:34)
[2018-07-31 06:36] LABS: Glucose,Whole Blood 50 mg/dL (75-99)
[2018-07-31] MEDS: LEVOTHYROXINE 125 MCG TAB PO SCH (06:39)
[2018-07-31] MEDS: SODIUM CHLORIDE 0.9% 1,000 ML IV SCH ×2 (06:39→16:01)
[2018-07-31 06:49] LABS: Glucose,Whole Blood 181 mg/dL (75-99)
[2018-07-31 07:30] LABS: Glucose,Whole Blood 132 mg/dL (75-99)
[2018-07-31] MEDS: INSULIN ASPART 100 UNIT/ML 1 ML 10 ML VIAL SQ SCH ×4 (08:56→21:34)
[2018-07-31] MEDS: PREGABALIN 100 MG CAP PO SCH ×2 (09:08→20:38)
[2018-07-31] MEDS: NICOTINE 14MG/24HR PATCH TRANSDERM SCH (09:08)
[2018-07-31] MEDS: AMOXIC-POT CLAV 875-125MG 1 EACH TAB PO SCH ×2 (09:08→20:38)
[2018-07-31] MEDS: FUROSEMIDE 40 MG TAB PO SCH (09:09)
[2018-07-31] MEDS: ASPIRIN 81 MG PO SCH (09:09)
[2018-07-31] MEDS: hydrALAZINE HCL 25 MG TAB PO SCH ×3 (09:09→20:38)
[2018-07-31] MEDS: CLOPIDOGREL 75 MG TAB PO SCH (09:09)
[2018-07-31] MEDS: PANTOPRAZOLE 40 MG TABLET PO SCH (09:09)
[2018-07-31] MEDS: CARVEDILOL 6.25 MG TAB PO SCH ×2 (09:09→16:57)
[2018-07-31] MEDS ORDERED: ATROPINE SULFATE 0.1 MG/ML 10ML SYRINGE ONE (09:48)
[2018-07-31] MEDS: INSULIN DETEMIR 100 UNIT/ML 10 ML VIAL SQ SCH (09:58)
--- NOTE | 2018-07-31 10:30 | PTCA ---
PERCUTANEOUSTRANS CORORONARY ANGIOGRAPHY DATE OF SERVICE: July 29, 2018 PERFORMING PHYSICIAN: Hussain House MD, material handler 1st shift. PROCEDURE PERFORMED: 1. Successful placement of transvenous temporary pacemaker. 2. Successful stenting of the ostial SVG to OM1 and OM2 using a 3.5 x 15 mm Xience DAX with excellent angiographic results and reduction of stenosis from 90% to 0%. INDICATION: This is a pleasant 68-year-old gentleman who is known to have history of coronary artery disease and prior coronary artery bypass grafting who was experiencing chest discomfort and ruled in for acute non ST elevation myocardial infarction. He underwent heart catheterization at [facility] [place] and that showed critical disease involving the SVG to OM1, OM2. Because of that, he was brought to undergo a stenting of that graft. APPROACH: Left common femoral artery. COMPLICATION: None. LEVEL OF SEDATION: Moderate with sedation length of 29 minutes. PROCEDURE DESCRIPTION: After obtaining an informed consent, the patient was brought to the cardiac laborer [facility]. The left common femoral artery was cannulated using micropuncture technique, the micropuncture wire passed easily and I did place a 6-St Helenian sheath in the left common femoral artery. After that I did access the right common femoral vein using micropuncture technique, the micropuncture wire passed easily then I placed a 6-St Helenian sheath in the right common femoral vein. Under fluoroscopy guidance, I placed transvenous temporary pacemaker in the right ventricle. I put a backup heart rate of 50 beats per minute and output of 2.5. After that I did engage the SVG to OM using an LCB guide. A whisper wire was used to wire that graft. After that, I did balloon angioplasty using three 3.0 x 15 mm balloon before I deployed a 3.5 x 15 mm Xience DAX where the stent was positioned under fluoroscopy guidance and deployed under 14 atmospheres for 20 seconds with the following angiogram showing excellent angiographic results with reduction of stenosis from 80% to 0%. The procedure was completed without any complication. POSTPROCEDURE MANAGEMENT: 1. Dual anti-platelet therapy. 2. Risk factor modifications. 3. Follow up with the patient. MMODL / IJN: [id number] /
[2018-07-31 11:31] LABS: Glucose,Whole Blood 143 mg/dL (75-99)
--- NOTE | 2018-07-31 12:35 | P.PN ---
Subjective Progress Note Date: 07/31/18 Principal diagnosis: Recurrent non-ST segment elevation myocardial infarction and systolic congestive heart failure. 68-year-old male patient who is known to me from previous admissions here at [facility]. The patient is known to have coronary artery disease and he has undergone previous bypass surgery. The patient also is post aortic valve replacement/T aVR procedure. The patient was in the hospital for an acute non-ST segment elevation myocardial infarction. He subsequently went into congestion heart failure and pulmonary edema. He was treated and he was sent to [facility] for further rehabilitation. He had a second UT with decompensated heart failure. At that point it was decided to bring this patient back for a cardiac catheterization. He is known to have previous CVA and left-sided weakness, diabetes, hypertension, hyperlipidemia and chronic renal failure. He also has chronic atrial fibrillation. The patient prior being taken to the [facility], developed issues with hypotension. He was given IV fluids. Subsequently was taken to the [facility] and he underwent stenting of the saphenous vein graft to obtuse marginal branch. During the same setting he was noted to have sinus bradycardia and cardiac cause and the patient has a transvenous pacemaker placed with a backup rate of 50. This morning he is awake and alert. History of any chest pain. He is on a combination of aspirin and Plavix. His cardiac rhythm is sinus he had he is in sinus bradycardia with a mid 50 range heart rate. His chest x-ray is showing cardiac megaly and a component of CHF. The patient is calm and comfortable without having any significant shortness of breath and is very much comfortable at rest. Function is stable with a creatinine of 1.7. His creatinine ranges between 1.4 and 1.8 and it has been up to 2 with certain days. No nausea. No vomiting. No chest pain. No bleeding complications per no other significant events overnight. He is awake and alert following commands and answering questions appropriately. Reevaluated today on 07/31/2018, remains in the intensive care unit, he is relatively asymptomatic, underwent stenting of saphenous vein graft to obtuse marginal branch. Required transvenous pacemaker placement which has been removed today. Patient is doing well, relatively asymptomatic today, and cleared by cardiology to transfer to a monitor bed on selective. Labs were reviewed, CBC is relatively normal, hemoglobin is 8.2. BUN is 22 creatinine 1.58, improving over the last few days. Objective - Vital Signs Vital signs: Vital Signs Temp 97.7 F 07/31/18 12:00 Pulse 56 L 07/31/18 12:00 Resp 20 07/31/18 12:00 BP 155/59 07/31/18 12:00 Pulse Ox 94 L 07/31/18 12:00 Intake & Output 07/30/18 07/31/18 07/31/18 18:59 06:59 18:59 Intake Total 1350 650 250 Output Total 2985 1290 1000 Balance -1635 -640 -750 Weight 86.8 kg 86.2 kg Intake: IV 600 650 250 Sodium Chloride 0.9% 1, 600 650 250 000 ml @ 50 mls/hr IV . Q20H [facility] Rx#:[id number] Oral 750 Output: Urine 2985 1290 1000 Uretheral ([place]jo) 475 Other: Voiding Method Indwelling Catheter Indwelling Catheter Indwelling Catheter ABP, PAP, CO, CI - Last Documented Arterial Blood Pressure 149/39 - Exam Physical Exam: Revealed a 68-year-old white male, calm, in no distress, Head: Atraumatic, normocephalic. HEENT:[Neck is supple.] [No neck masses.] [No thyromegaly.] [No JVD.] Chest: [Clear throughout, no crackles, no rhonchi, no wheezes.] Cardiac Exam: [Normal S1 and S2, no S3 gallop, no murmur.] Abdomen: [Soft, nontender, no megaly, no rebound, no guarding, normal bowel sounds.] Extremities: [No clubbing, no edema, no cyanosis.] Neurological Exam: [No focal neurologic deficit.] - Labs CBC & Chem 7: 07/31/18 04:29 07/31/18 04:29 Labs: Abnormal Lab Results - Last 24 Hours (Table) 07/30/18 07/31/18 07/31/18 Range/Units 17:10 04:29 04:29 WBC 11.7 H (3.8-10.6) k/uL RBC 2.25 L (4.30-5.90) m/uL Hgb 8.2 L (13.0-17.5) gm/dL Hct 25.6 L (39.0-53.0) % MCV 114.1 H D (80.0-100.0) fL MCH 36.7 H (25.0-35.0) pg Plt Count 531 H (150-450) k/uL Neutrophils # 7.9 H (1.3-7.7) k/uL Chloride 114 H (98-107) mmol/L Carbon Dioxide 19 L (22-30) mmol/L BUN 22 H (9-20) mg/dL Creatinine 1.58 H (0.66-1.25) mg/dL Glucose 37 L* (74-99) mg/dL POC Glucose (mg/dL) 112 H (75-99) mg/dL Calcium 8.2 L (8.4-10.2) mg/dL 07/31/18 07/31/18 07/31/18 Range/Units 06:34 06:48 07:25 WBC (3.8-10.6) k/uL RBC (4.30-5.90) m/uL Hgb (13.0-17.5) gm/dL Hct (39.0-53.0) % MCV (80.0-100.0) fL MCH (25.0-35.0) pg Plt Count (150-450) k/uL Neutrophils # (1.3-7.7) k/uL Chloride (98-107) mmol/L Carbon Dioxide (22-30) mmol/L BUN (9-20) mg/dL Creatinine (0.66-1.25) mg/dL Glucose (74-99) mg/dL POC Glucose (mg/dL) 50 L 181 H 132 H (75-99) mg/dL Calcium (8.4-10.2) mg/dL 07/31/18 Range/Units 11:29 WBC (3.8-10.6) k/uL RBC (4.30-5.90) m/uL Hgb (13.0-17.5) gm/dL Hct (39.0-53.0) % MCV (80.0-100.0) fL MCH (25.0-35.0) pg Plt Count (150-450) k/uL Neutrophils # (1.3-7.7) k/uL Chloride (98-107) mmol/L Carbon Dioxide (22-30) mmol/L BUN (9-20) mg/dL Creatinine (0.66-1.25) mg/dL Glucose (74-99) mg/dL POC Glucose (mg/dL) 143 H (75-99) mg/dL Calcium (8.4-10.2) mg/dL Assessment and Plan Assessment: 1 recurrent non-ST segment elevation myocardial infarction complicated by heart failure. The patient underwent cardiac catheterization and subsequently saphenous vein graft stenting was performed to . The patient also developed sinus bradycardia/cardiac positive the patient currently has a transvenous pacemaker in place. Hemodynamically stable at this point in time. 2 coronary artery disease with previous four-vessel bypass surgery 3 congestion heart failure with an ejection fraction of 40-45% based on the most echocardiogram was done at [facility]. 4 chronic renal failure 5 chronic anemia 6 previous history aortic valve replacement TAVR 7 paroxysmal atrial fibrillation , currently in sinus bradycardia and the patient is a transvenous pacemaker in place 8 previous history of CVA with left-sided weakness 9 diabetes mellitus 10 diabetic peripheral neuropathy 11 peripheral vascular disease 12 hematologic disorder maintained on Hydrea on outpatient basis exact type is not known to me at this point 13 history of chronic iron deficiency anemia 14 prostate cancer 15 hypothyroidism 16 DNR/DNI CODE STATUS Recommendation: Continue present meds, patient was cleared to be transferred out of the ICU to a monitor bed on selective. Continue diuretics, continue cardiac meds as listed, will continue to follow. Time with Patient: Less than 30
[2018-07-31] MEDS: amLODIPine 10 MG TAB PO SCH (12:38)
[2018-07-31] MEDS: FERROUS SULFATE 325 MG TAB PO SCH (12:38)
--- NOTE | 2018-07-31 13:52 | P.PN ---
Subjective Gokul Ostsalome a 68 y.o.malewith a past medical history of CABG, history of CVA with residual left-sided weakness, diabetes type 2, hypertension, hyperlipidemia, aortic TAVR procedure who was recently treated at [facility] for acute hypoxic respiratory failure secondary to pulmonary edema and acute non-ST elevated SD. Patient was transferred to [facility] for rehabilitation. Patient is being followed at the rehabilitation. On 07/19/2018 patient developed chest pain and was also found to have atrial fibrillation with rapid ventricular rate and shortness of breath. Patient was transferred to medical intensive care unit for further management. Patient was also hypotensive with blood pressure 84/52 on admission. Patient was started on Cardizem drip and nitro drip. Cardiology and pulmonary was consulted. Patient was found to have elevated troponin level 0.106, 0.126 and 0.115.proBNP is 7205 at [facility] Creatinine was 1.4-1.8 and on this admission it is 2.0 Currently patient is still in atrial fibrillation but rate is controlled and on the low side Chest x-ray showed pulmonary vascular congestion.however when he was at [facility] his dropped in wt from [address] of the brain : no acute hemorrhage pt underwent cardiac cath today and s/p stent placement , and he was transferred to ICU for further care of note pt was on xarelto 15 mg which is on hold on this admission pt has iyer re-inserted twice at [facility] due to urine retension of more than 300 cc 07/30/18 Patient is more awake today. Was noticed to be ready cardiac with arteries at 50s. Metoprolol was held. Cardiology are following the case. Who recommended to DC heparin and continue with aspirin and Plavix and change metoprolol to Coreg for better proximal blood pressure control. With possible we'll discontinue with the transvenous pacemaker tomorrow. Patient currently on Coreg 6.25 mg by mouth twice a day. No leukocytosis and hemoglobin 7.9, compared to 8.6 yesterday. Follow-up hemoglobin level. Creatinine at baseline at 1.79. Sugars well controlled. Prognosis remains guarded. Cardiology and pulmonary/critical care team are following the patient and their input is appreciated. 07/31/2018 Patient was given more awake than yesterday and she feels better patient lying in bed with no distress. Her this morning patient developed hypoglycemia which glucose down at 50 milligrams per/dl. Patient was given D50 in the 8 and his sugars trending up again. His Levemir was decreased from 35 units to 20 units. Of note patient was eaten yesterday almost 100% of his plates. CONSTITUTIONAL: No fever, no malaise, no fatigue. HEENT: No recent visual problems or hearing problems. Denied any sore throat. CARDIOVASCULAR: No orthopnea, PND, no palpitations, no syncope. PULMONARY: No shortness of breath, no cough, no hemoptysis. GASTROINTESTINAL: No diarrhea, no nausea, no vomiting, no abdominal pain. Normoactive bowel sounds. NEUROLOGICAL: No headaches, no weakness, no numbness. HEMATOLOGICAL: Denies any bleeding or petechiae. GENITOURINARY: Denies any burning micturition, frequency, or urgency. MUSCULOSKELETAL/RHEUMATOLOGICAL: Denies any joint pain, swelling, or any muscle pain. ENDOCRINE: Denies any polyuria or polydipsia. Objective - Vital Signs Vital signs: Vital Signs Temp 97.7 F 07/31/18 12:00 Pulse 53 L 07/31/18 13:00 Resp 20 07/31/18 13:00 BP 157/55 07/31/18 13:00 Pulse Ox 95 07/31/18 13:00 Intake & Output 07/30/18 07/31/18 07/31/18 18:59 06:59 18:59 Intake Total 1350 650 250 Output Total 2985 1290 1000 Balance -1635 -640 -750 Weight 86.8 kg 86.2 kg Intake: IV 600 650 250 Sodium Chloride 0.9% 1, 600 650 250 000 ml @ 50 mls/hr IV . Q20H [facility] Rx#:[id number] Oral 750 Output: Urine 2985 1290 1000 Uretheral (Iyer) 475 Other: Voiding Method Indwelling Catheter Indwelling Catheter Indwelling Catheter ABP, PAP, CO, CI - Last Documented Arterial Blood Pressure 149/39 - Exam GENERAL: The patient is alert and oriented x3, not in any acute distress. Well developed, well nourished. HEENT: Pupils are round and equally reacting to light. EOMI. No scleral icterus. No conjunctival pallor. Normocephalic, atraumatic. No pharyngeal erythema. No thyromegaly. CARDIOVASCULAR: S1 and S2 present. No murmurs, rubs, or gallops. PULMONARY: Chest is clear to auscultation, no wheezing or crackles. ABDOMEN: Soft, nontender, nondistended, normoactive bowel sounds. No palpable organomegaly. MUSCULOSKELETAL: No joint swelling or deformity. EXTREMITIES: No cyanosis, clubbing, or pedal edema. NEUROLOGICAL: Gross neurological examination did not reveal any focal deficits. SKIN: No rashes. - Labs CBC & Chem 7: 07/31/18 04:29 07/31/18 04:29 Labs: Abnormal Lab Results - Last 24 Hours (Table) 07/30/18 07/31/18 07/31/18 Range/Units 17:10 04:29 04:29 WBC 11.7 H (3.8-10.6) k/uL RBC 2.25 L (4.30-5.90) m/uL Hgb 8.2 L (13.0-17.5) gm/dL Hct 25.6 L (39.0-53.0) % MCV 114.1 H D (80.0-100.0) fL MCH 36.7 H (25.0-35.0) pg Plt Count 531 H (150-450) k/uL Neutrophils # 7.9 H (1.3-7.7) k/uL Chloride 114 H (98-107) mmol/L Carbon Dioxide 19 L (22-30) mmol/L BUN 22 H (9-20) mg/dL Creatinine 1.58 H (0.66-1.25) mg/dL Glucose 37 L* (74-99) mg/dL POC Glucose (mg/dL) 112 H (75-99) mg/dL Calcium 8.2 L (8.4-10.2) mg/dL 07/31/18 07/31/18 07/31/18 Range/Units 06:34 06:48 07:25 WBC (3.8-10.6) k/uL RBC (4.30-5.90) m/uL Hgb (13.0-17.5) gm/dL Hct (39.0-53.0) % MCV (80.0-100.0) fL MCH (25.0-35.0) pg Plt Count (150-450) k/uL Neutrophils # (1.3-7.7) k/uL Chloride (98-107) mmol/L Carbon Dioxide (22-30) mmol/L BUN (9-20) mg/dL Creatinine (0.66-1.25) mg/dL Glucose (74-99) mg/dL POC Glucose (mg/dL) 50 L 181 H 132 H (75-99) mg/dL Calcium (8.4-10.2) mg/dL 07/31/18 Range/Units 11:29 WBC (3.8-10.6) k/uL RBC (4.30-5.90) m/uL Hgb (13.0-17.5) gm/dL Hct (39.0-53.0) % MCV (80.0-100.0) fL MCH (25.0-35.0) pg Plt Count (150-450) k/uL Neutrophils # (1.3-7.7) k/uL Chloride (98-107) mmol/L Carbon Dioxide (22-30) mmol/L BUN (9-20) mg/dL Creatinine (0.66-1.25) mg/dL Glucose (74-99) mg/dL POC Glucose (mg/dL) 143 H (75-99) mg/dL Calcium (8.4-10.2) mg/dL Assessment and Plan Assessment: Acute congestive heart failure with bilateral pleural effusion, currently on Lasix drip Acute Congestive heart failure , systolic as well as diastolic failure Acute hypoxic respiratory failure requrring oxygen per nasal cannula, 3 L/m Atrial fibrillation with rapid ventricular rate, rate controlled Chest pain with the mild troponin elevation. Possible non-ST elevated SD. Coronary artery disease with history of CABG Paroxysmal atrial fibrillation on anticoagulation Recent history of acute hypoxic respiratory failure secondary to cardiogenic pulmonary edema and NSTEMI Aortic stenosis with previous aortic TAVRprocedure rate Acute on chronic kidney disease stage III Diabetes type 2 History of CVA with residual left-sided weakness Diabetic peripheral neuropathy Chronic iron deficiency anemia History of prostate cancer Hypothyroidism Medical Debility. BPH Plan: Patent is transferred out to the intensive care unit for further care . Patient will be continued on telemetry monitoring. As per cardiology recommendation, pt is s/p catheterization on 07/29/18. He remains on multiple cardiac meds as listed.Continue current medications.pain management, continue with diuretic in view of his pulmonary congestion and HTN, continue with insulin , Monitor patient closely. Monitor labs and vitals and electrolytes. Further plans based on his clinical course. DVT prophylaxis on subcutaneous heparin (on hold ) GI prophylaxis Protonix prognosis is guarded
--- NOTE | 2018-07-31 14:13 | P.PN ---
Subjective Patient is doing a lot better. He has not had any bradycardia or pauses. He has not used his temporary pacemaker. Vitals are stable he is afebrile no shortness of breath and looks very comfortable and seems alert Pulse rate in the 50s, blood pressure 157/55 and was mercury Heart sounds S1 and S2 are soft no murmurs or gallops or rub Breath sounds are clear but reduced bilaterally Abdomen soft Extremities are warm to Impression Non-Q-wave myocardial infarction involving the inferior wall/status post stenting to the RCA Plan I removed his TVP the venous sheaths removed He is currently on Coreg 6.25 mg twice daily Potassium is 5.0, creatinine 1.58 Consider hydrochlorothiazide even though BUN and creatinine is mildly elevated but this may help for the hyperkalemia Objective - Vital Signs Vital signs: Vital Signs Temp 97.7 F 07/31/18 12:00 Pulse 53 L 07/31/18 13:00 Resp 20 07/31/18 13:00 BP 157/55 07/31/18 13:00 Pulse Ox 95 07/31/18 13:00 Intake & Output 07/30/18 07/31/18 07/31/18 18:59 06:59 18:59 Intake Total 1350 650 250 Output Total 2985 1290 1000 Balance -1635 -640 -750 Weight 86.8 kg 86.2 kg Intake: IV 600 650 250 Sodium Chloride 0.9% 1, 600 650 250 000 ml @ 50 mls/hr IV . Q20H [facility] Rx#:[id number] Oral 750 Output: Urine 2985 1290 1000 Uretheral ([place]) 475 Other: Voiding Method Indwelling Catheter Indwelling Catheter Indwelling Catheter ABP, PAP, CO, CI - Last Documented Arterial Blood Pressure 149/39 - Labs CBC & Chem 7: 07/31/18 04:29 07/31/18 04:29 Labs: Abnormal Lab Results - Last 24 Hours (Table) 07/30/18 07/31/18 07/31/18 Range/Units 17:10 04:29 04:29 WBC 11.7 H (3.8-10.6) k/uL RBC 2.25 L (4.30-5.90) m/uL Hgb 8.2 L (13.0-17.5) gm/dL Hct 25.6 L (39.0-53.0) % MCV 114.1 H D (80.0-100.0) fL MCH 36.7 H (25.0-35.0) pg Plt Count 531 H (150-450) k/uL Neutrophils # 7.9 H (1.3-7.7) k/uL Chloride 114 H (98-107) mmol/L Carbon Dioxide 19 L (22-30) mmol/L BUN 22 H (9-20) mg/dL Creatinine 1.58 H (0.66-1.25) mg/dL Glucose 37 L* (74-99) mg/dL POC Glucose (mg/dL) 112 H (75-99) mg/dL Calcium 8.2 L (8.4-10.2) mg/dL 07/31/18 07/31/18 07/31/18 Range/Units 06:34 06:48 07:25 WBC (3.8-10.6) k/uL RBC (4.30-5.90) m/uL Hgb (13.0-17.5) gm/dL Hct (39.0-53.0) % MCV (80.0-100.0) fL MCH (25.0-35.0) pg Plt Count (150-450) k/uL Neutrophils # (1.3-7.7) k/uL Chloride (98-107) mmol/L Carbon Dioxide (22-30) mmol/L BUN (9-20) mg/dL Creatinine (0.66-1.25) mg/dL Glucose (74-99) mg/dL POC Glucose (mg/dL) 50 L 181 H 132 H (75-99) mg/dL Calcium (8.4-10.2) mg/dL 07/31/18 Range/Units 11:29 WBC (3.8-10.6) k/uL RBC (4.30-5.90) m/uL Hgb (13.0-17.5) gm/dL Hct (39.0-53.0) % MCV (80.0-100.0) fL MCH (25.0-35.0) pg Plt Count (150-450) k/uL Neutrophils # (1.3-7.7) k/uL Chloride (98-107) mmol/L Carbon Dioxide (22-30) mmol/L BUN (9-20) mg/dL Creatinine (0.66-1.25) mg/dL Glucose (74-99) mg/dL POC Glucose (mg/dL) 143 H (75-99) mg/dL Calcium (8.4-10.2) mg/dL
[2018-07-31 17:04] LABS: Glucose,Whole Blood 169 mg/dL (75-99)
[2018-07-31] MEDS: VENLAFAXINE HCL ER 75 MG CAP PO SCH (20:38)
[2018-07-31] MEDS: ATORVASTATIN 20 MG TAB PO SCH (20:38)
[2018-07-31 20:58] LABS: Glucose,Whole Blood 208 mg/dL (75-99)
[2018-08-01 04:34] LABS: Basophils % (A) 0 %; Eosinophils # (A) 0.6 k/uL (0-0.7); Eosinophils % (A) 7 %; HCT 24.7 % (39.0-53.0); HGB 7.8 gm/dL (13.0-17.5); Hypochromasia Marked; Lymphocytes # (A) 1.3 k/uL (1.0-4.8); Lymphocytes % (A) 17 %; MCHC 31.5 g/dL (31.0-37.0); MCV 117.3 fL (80.0-100.0); Mean Platelet Volume 6.9; Monocytes # (A) 0.6 k/uL (0-1.0); Monocytes % (A) 8 %; Neutrophils % (A) 66 %; Platelet Count 444 k/uL (150-450); RDW 14.8 % (11.5-15.5); WBC 7.6 k/uL (3.8-10.6)
[2018-08-01 04:37] LABS: Macrocytosis Marked
[2018-08-01 05:02] LABS: Calcium 8.2 mg/dL (8.4-10.2); Potassium 4.7 mmol/L (3.5-5.1)
[2018-08-01 06:08] LABS: Glucose,Whole Blood 100 mg/dL (75-99)
[2018-08-01] MEDS: LEVOTHYROXINE 125 MCG TAB PO SCH (06:24)
[2018-08-01] MEDS: INSULIN ASPART 100 UNIT/ML 1 ML 10 ML VIAL SQ SCH ×4 (06:24→21:04)
[2018-08-01] MEDS: NICOTINE 14MG/24HR PATCH TRANSDERM SCH (08:28)
[2018-08-01] MEDS: PANTOPRAZOLE 40 MG TABLET PO SCH (08:28)
[2018-08-01] MEDS: CARVEDILOL 6.25 MG TAB PO SCH ×2 (08:28→17:28)
[2018-08-01] MEDS: FUROSEMIDE 40 MG TAB PO SCH (08:28)
[2018-08-01] MEDS: CLOPIDOGREL 75 MG TAB PO SCH (08:28)
[2018-08-01] MEDS: ASPIRIN 81 MG PO SCH (08:28)
[2018-08-01] MEDS: hydrALAZINE HCL 25 MG TAB PO SCH ×3 (08:28→21:01)
[2018-08-01] MEDS: INSULIN DETEMIR 100 UNIT/ML 10 ML VIAL SQ SCH (08:29)
[2018-08-01] MEDS: PREGABALIN 100 MG CAP PO SCH ×2 (08:32→21:01)
[2018-08-01] MEDS: AMOXIC-POT CLAV 875-125MG 1 EACH TAB PO SCH ×2 (08:46→21:01)
[2018-08-01 10:06] VITALS: BMI 29.1
--- NOTE | 2018-08-01 10:51 | P.PN ---
Subjective Progress Note Date: 08/01/18 Principal diagnosis: Recurrent non-ST segment elevation myocardial infarction and systolic congestive heart failure. 68-year-old male patient who is known to me from previous admissions here at [facility]. The patient is known to have coronary artery disease and he has undergone previous bypass surgery. The patient also is post aortic valve replacement/T aVR procedure. The patient was in the hospital for an acute non-ST segment elevation myocardial infarction. He subsequently went into congestion heart failure and pulmonary edema. He was treated and he was sent to [facility] for further rehabilitation. He had a second SD with decompensated heart failure. At that point it was decided to bring this patient back for a cardiac catheterization. He is known to have previous CVA and left-sided weakness, diabetes, hypertension, hyperlipidemia and chronic renal failure. He also has chronic atrial fibrillation. The patient prior being taken to the [facility], developed issues with hypotension. He was given IV fluids. Subsequently was taken to the [facility] and he underwent stenting of the saphenous vein graft to obtuse marginal branch. During the same setting he was noted to have sinus bradycardia and cardiac cause and the patient has a transvenous pacemaker placed with a backup rate of 50. This morning he is awake and alert. History of any chest pain. He is on a combination of aspirin and Plavix. His cardiac rhythm is sinus he had he is in sinus bradycardia with a mid 50 range heart rate. His chest x-ray is showing cardiac megaly and a component of CHF. The patient is calm and comfortable without having any significant shortness of breath and is very much comfortable at rest. Function is stable with a creatinine of 1.7. His creatinine ranges between 1.4 and 1.8 and it has been up to 2 with certain days. No nausea. No vomiting. No chest pain. No bleeding complications per no other significant events overnight. He is awake and alert following commands and answering questions appropriately. Reevaluated today on 07/31/2018, remains in the intensive care unit, he is relatively asymptomatic, underwent stenting of saphenous vein graft to obtuse marginal branch. Required transvenous pacemaker placement which has been removed today. Patient is doing well, relatively asymptomatic today, and cleared by cardiology to transfer to a monitor bed on selective. Labs were reviewed, CBC is relatively normal, hemoglobin is 8.2. BUN is 22 creatinine 1.58, improving over the last few days. Reevaluated today on 08/01/2018, patient is presently an overflow from [facility] , waiting for a bed to become available. Denies any specific complaints, no cough no wheezing no shortness of breath. No significant arrhythmia or bradycardia noted. Blood pressure is stable, and his chest x-ray is showing no evidence of pulmonary edema. CBC was reviewed hemoglobin is 7.8, BUN is 18 creatinine is 1.29. Objective - Vital Signs Vital signs: Vital Signs Temp 97.9 F 08/01/18 08:00 Pulse 58 L 08/01/18 09:00 Resp 26 H 08/01/18 09:00 BP 168/62 08/01/18 09:00 Pulse Ox 97 08/01/18 09:00 Intake & Output 07/31/18 08/01/18 08/01/18 18:59 06:59 18:59 Intake Total 550 600 780 Output Total 1450 900 525 Balance -900 -300 255 Weight 89.6 kg 89.6 kg Intake: IV 550 600 300 Sodium Chloride 0.9% 1, 550 600 300 000 ml @ 50 mls/hr IV . Q20H [facility] Rx#:[id number] Oral 480 Output: Urine 1450 900 525 Other: Voiding Method Indwelling Catheter Urinal Urinal ABP, PAP, CO, CI - Last Documented Arterial Blood Pressure 149/39 - Exam Physical Exam: Revealed a 68-year-old white male, calm, in no distress, Head: Atraumatic, normocephalic. HEENT:[Neck is supple.] [No neck masses.] [No thyromegaly.] [No JVD.] Chest: [Clear throughout, no crackles, no rhonchi, no wheezes.] Cardiac Exam: [Normal S1 and S2, no S3 gallop, no murmur.] Abdomen: [Soft, nontender, no megaly, no rebound, no guarding, normal bowel sounds.] Extremities: [No clubbing, no edema, no cyanosis.] Neurological Exam: [No focal neurologic deficit. Psychiatric: Blunted affect, otherwise normal mental status examination.] - Labs CBC & Chem 7: 08/01/18 04:16 08/01/18 04:16 Labs: Abnormal Lab Results - Last 24 Hours (Table) 07/31/18 07/31/18 07/31/18 Range/Units 11:29 16:48 20:56 RBC (4.30-5.90) m/uL Hgb (13.0-17.5) gm/dL Hct (39.0-53.0) % MCV (80.0-100.0) fL MCH (25.0-35.0) pg Chloride (98-107) mmol/L Carbon Dioxide (22-30) mmol/L Creatinine (0.66-1.25) mg/dL Glucose (74-99) mg/dL POC Glucose (mg/dL) 143 H 169 H 208 H (75-99) mg/dL Calcium (8.4-10.2) mg/dL 08/01/18 08/01/18 08/01/18 Range/Units 04:16 04:16 06:06 RBC 2.10 L (4.30-5.90) m/uL Hgb 7.8 L (13.0-17.5) gm/dL Hct 24.7 L (39.0-53.0) % MCV 117.3 H (80.0-100.0) fL MCH 37.0 H (25.0-35.0) pg Chloride 116 H (98-107) mmol/L Carbon Dioxide 20 L (22-30) mmol/L Creatinine 1.29 H (0.66-1.25) mg/dL Glucose 68 L (74-99) mg/dL POC Glucose (mg/dL) 100 H (75-99) mg/dL Calcium 8.2 L (8.4-10.2) mg/dL Assessment and Plan Assessment: 1 recurrent non-ST segment elevation myocardial infarction complicated by heart failure. The patient underwent cardiac catheterization and subsequently saphenous vein graft stenting was performed to OM. The patient also developed sinus bradycardia/cardiac positive the patient currently has a transvenous pacemaker in place. Hemodynamically stable at this point in time. 2 coronary artery disease with previous four-vessel bypass surgery 3 congestion heart failure with an ejection fraction of 40-45% based on the most echocardiogram was done at [facility]. 4 chronic renal failure 5 chronic anemia 6 previous history aortic valve replacement TAVR 7 paroxysmal atrial fibrillation , currently in sinus bradycardia and the patient is a transvenous pacemaker in place 8 previous history of CVA with left-sided weakness 9 diabetes mellitus 10 diabetic peripheral neuropathy 11 peripheral vascular disease 12 hematologic disorder maintained on Hydrea on outpatient basis exact type is not known to me at this point 13 history of chronic iron deficiency anemia 14 prostate cancer 15 hypothyroidism 16 DNR/DNI CODE STATUS Recommendation: Continue present meds, patient is now a selective overflow, will transfer out of the ICU once a bed becomes available. We'll continue to follow along with cardiology. Time with Patient: Less than 30
[2018-08-01 11:45] LABS: Glucose,Whole Blood 102 mg/dL (75-99)
[2018-08-01] MEDS: amLODIPine 10 MG TAB PO SCH (11:48)
[2018-08-01] MEDS: FERROUS SULFATE 325 MG TAB PO SCH (11:48)
--- NOTE | 2018-08-01 14:40 | P.PN ---
Subjective Gokul Ostsalome a 68 y.o.malewith a past medical history of CABG, history of CVA with residual left-sided weakness, diabetes type 2, hypertension, hyperlipidemia, aortic TAVR procedure who was recently treated at [facility] for acute hypoxic respiratory failure secondary to pulmonary edema and acute non-ST elevated NM. Patient was transferred to [facility] for rehabilitation. Patient is being followed at the rehabilitation. On 07/19/2018 patient developed chest pain and was also found to have atrial fibrillation with rapid ventricular rate and shortness of breath. Patient was transferred to medical intensive care unit for further management. Patient was also hypotensive with blood pressure 84/52 on admission. Patient was started on Cardizem drip and nitro drip. Cardiology and pulmonary was consulted. Patient was found to have elevated troponin level 0.106, 0.126 and 0.115.proBNP is 7205 at [facility] Creatinine was 1.4-1.8 and on this admission it is 2.0 Currently patient is still in atrial fibrillation but rate is controlled and on the low side Chest x-ray showed pulmonary vascular congestion.however when he was at [facility] his dropped in wt from [address] of the brain : no acute hemorrhage pt underwent cardiac cath today and s/p stent placement , and he was transferred to ICU for further care of note pt was on xarelto 15 mg which is on hold on this admission pt has iyer re-inserted twice at [facility] due to urine retension of more than 300 cc 07/30/18 Patient is more awake today. Was noticed to be ready cardiac with arteries at 50s. Metoprolol was held. Cardiology are following the case. Who recommended to DC heparin and continue with aspirin and Plavix and change metoprolol to Coreg for better proximal blood pressure control. With possible we'll discontinue with the transvenous pacemaker tomorrow. Patient currently on Coreg 6.25 mg by mouth twice a day. No leukocytosis and hemoglobin 7.9, compared to 8.6 yesterday. Follow-up hemoglobin level. Creatinine at baseline at 1.79. Sugars well controlled. Prognosis remains guarded. Cardiology and pulmonary/critical care team are following the patient and their input is appreciated. 07/31/2018 Patient was given more awake than yesterday and she feels better patient lying in bed with no distress. Her this morning patient developed hypoglycemia which glucose down at 50 milligrams per/dl. Patient was given D50 in the 8 and his sugars trending up again. His Levemir was decreased from 35 units to 20 units. Of note patient was eaten yesterday almost 100% of his plates. 08/01/2018 Patient is clinically stable, he moved out of the ICU to the general medical floor. Patient's with no chest pain or dyspnea. No fever. Was 5.0, repeat potassium 4.7.his sugars are running at 100-208. Patient on Levemir 20 units Objective - Vital Signs Vital signs: Vital Signs Temp 97.5 F L 08/01/18 12:00 Pulse 55 L 08/01/18 12:00 Resp 16 08/01/18 12:00 BP 148/56 08/01/18 12:00 Pulse Ox 91 L 08/01/18 12:00 Intake & Output 07/31/18 08/01/18 08/01/18 18:59 06:59 18:59 Intake Total 164 873 3312 Output Total 7378 016 2573 Balance -900 -300 400 Weight 89.6 kg 89.6 kg Intake: IV 550 600 450 Sodium Chloride 0.9% 1, 550 600 450 000 ml @ 50 mls/hr IV . Q20H [facility] Rx#:[id number] Oral 1200 Output: Urine 4746 819 4733 Other: Voiding Method Indwelling Catheter Urinal Urinal ABP, PAP, CO, CI - Last Documented Arterial Blood Pressure 149/39 - Exam GENERAL: The patient is alert and oriented x3, not in any acute distress. Well developed, well nourished. HEENT: Pupils are round and equally reacting to light. EOMI. No scleral icterus. No conjunctival pallor. Normocephalic, atraumatic. No pharyngeal erythema. No thyromegaly. CARDIOVASCULAR: S1 and S2 present. No murmurs, rubs, or gallops. PULMONARY: Chest is clear to auscultation, no wheezing or crackles. ABDOMEN: Soft, nontender, nondistended, normoactive bowel sounds. No palpable organomegaly. MUSCULOSKELETAL: No joint swelling or deformity. EXTREMITIES: No cyanosis, clubbing, or pedal edema. NEUROLOGICAL: Gross neurological examination did not reveal any focal deficits. SKIN: No rashes. - Labs CBC & Chem 7: 08/01/18 04:16 09/18/18 04:16 Labs: Abnormal Lab Results - Last 24 Hours (Table) 07/31/18 07/31/18 08/01/18 Range/Units 16:48 20:56 04:16 RBC 2.10 L (4.30-5.90) m/uL Hgb 7.8 L (13.0-17.5) gm/dL Hct 24.7 L (39.0-53.0) % MCV 117.3 H (80.0-100.0) fL MCH 37.0 H (25.0-35.0) pg Chloride (98-107) mmol/L Carbon Dioxide (22-30) mmol/L Creatinine (0.66-1.25) mg/dL Glucose (74-99) mg/dL POC Glucose (mg/dL) 169 H 208 H (75-99) mg/dL Calcium (8.4-10.2) mg/dL 08/01/18 08/01/18 08/01/18 Range/Units 04:16 06:06 11:43 RBC (4.30-5.90) m/uL Hgb (13.0-17.5) gm/dL Hct (39.0-53.0) % MCV (80.0-100.0) fL MCH (25.0-35.0) pg Chloride 116 H (98-107) mmol/L Carbon Dioxide 20 L (22-30) mmol/L Creatinine 1.29 H (0.66-1.25) mg/dL Glucose 68 L (74-99) mg/dL POC Glucose (mg/dL) 100 H 102 H (75-99) mg/dL Calcium 8.2 L (8.4-10.2) mg/dL Assessment and Plan Assessment: Acute congestive heart failure with bilateral pleural effusion, currently on Lasix drip Acute Congestive heart failure , systolic as well as diastolic failure Acute hypoxic respiratory failure requrring oxygen per nasal cannula, 3 L/m Atrial fibrillation with rapid ventricular rate, rate controlled Chest pain with the mild troponin elevation. Possible non-ST elevated NM. Coronary artery disease with history of CABG Paroxysmal atrial fibrillation on anticoagulation Recent history of acute hypoxic respiratory failure secondary to cardiogenic pulmonary edema and NSTEMI Aortic stenosis with previous aortic TAVRprocedure rate Acute on chronic kidney disease stage III Diabetes type 2 History of CVA with residual left-sided weakness Diabetic peripheral neuropathy Chronic iron deficiency anemia History of prostate cancer Hypothyroidism Medical Debility. BPH Plan: Patent is transferred out to the intensive care unit for further care . Patient will be continued on telemetry monitoring. As per cardiology recommendation, pt is s/p catheterization on 07/29/18. He remains on multiple cardiac meds as listed.Continue current medications.pain management, continue with diuretic in view of his pulmonary congestion and HTN, continue with insulin , Monitor patient closely. Monitor labs and vitals and electrolytes. Further plans based on his clinical course. DVT prophylaxis on subcutaneous heparin (on hold ) GI prophylaxis Protonix prognosis is guarded
[2018-08-01 16:52] LABS: Glucose,Whole Blood 109 mg/dL (75-99)
[2018-08-01] MEDS: VENLAFAXINE HCL ER 75 MG CAP PO SCH (21:01)
[2018-08-01] MEDS: ATORVASTATIN 20 MG TAB PO SCH (21:01)
[2018-08-01 21:04] LABS: Glucose,Whole Blood 154 mg/dL (75-99)
[2018-08-01] MEDS: SODIUM CHLORIDE 0.9% 1,000 ML IV SCH (21:04)
[2018-08-02] MEDS: PANTOPRAZOLE 40 MG TABLET PO SCH (06:04)
[2018-08-02] MEDS: LEVOTHYROXINE 125 MCG TAB PO SCH (06:04)
[2018-08-02] MEDS: CARVEDILOL 6.25 MG TAB PO SCH ×2 (06:04→16:21)
[2018-08-02 06:24] LABS: Glucose,Whole Blood 120 mg/dL (75-99)
[2018-08-02] MEDS: INSULIN ASPART 100 UNIT/ML 1 ML 10 ML VIAL SQ SCH ×4 (06:29→21:47)
[2018-08-02] MEDS: PREGABALIN 100 MG CAP PO SCH ×2 (08:28→20:32)
[2018-08-02] MEDS: AMOXIC-POT CLAV 875-125MG 1 EACH TAB PO SCH ×2 (08:28→20:32)
[2018-08-02] MEDS: FUROSEMIDE 40 MG TAB PO SCH (08:29)
[2018-08-02] MEDS: ASPIRIN 81 MG PO SCH (08:29)
[2018-08-02] MEDS: NICOTINE 14MG/24HR PATCH TRANSDERM SCH (08:29)
[2018-08-02] MEDS: CLOPIDOGREL 75 MG TAB PO SCH (08:29)
[2018-08-02] MEDS: INSULIN DETEMIR 100 UNIT/ML 10 ML VIAL SQ SCH (08:30)
[2018-08-02] MEDS: hydrALAZINE HCL 25 MG TAB PO SCH ×3 (08:34→20:32)
[2018-08-02 11:45] LABS: Glucose,Whole Blood 166 mg/dL (75-99)
--- NOTE | 2018-08-02 11:49 | P.PN ---
Subjective Progress Note Date: 08/02/18 Principal diagnosis: Recurrent non-ST segment elevation myocardial infarction and systolic congestive heart failure. 68-year-old male patient who is known to me from previous admissions here at [facility]. The patient is known to have coronary artery disease and he has undergone previous bypass surgery. The patient also is post aortic valve replacement/T aVR procedure. The patient was in the hospital for an acute non-ST segment elevation myocardial infarction. He subsequently went into congestion heart failure and pulmonary edema. He was treated and he was sent to [facility] for further rehabilitation. He had a second PR with decompensated heart failure. At that point it was decided to bring this patient back for a cardiac catheterization. He is known to have previous CVA and left-sided weakness, diabetes, hypertension, hyperlipidemia and chronic renal failure. He also has chronic atrial fibrillation. The patient prior being taken to the [facility], developed issues with hypotension. He was given IV fluids. Subsequently was taken to the [facility] and he underwent stenting of the saphenous vein graft to obtuse marginal branch. During the same setting he was noted to have sinus bradycardia and cardiac cause and the patient has a transvenous pacemaker placed with a backup rate of 50. This morning he is awake and alert. History of any chest pain. He is on a combination of aspirin and Plavix. His cardiac rhythm is sinus he had he is in sinus bradycardia with a mid 50 range heart rate. His chest x-ray is showing cardiac megaly and a component of CHF. The patient is calm and comfortable without having any significant shortness of breath and is very much comfortable at rest. Function is stable with a creatinine of 1.7. His creatinine ranges between 1.4 and 1.8 and it has been up to 2 with certain days. No nausea. No vomiting. No chest pain. No bleeding complications per no other significant events overnight. He is awake and alert following commands and answering questions appropriately. Reevaluated today on 07/31/2018, remains in the intensive care unit, he is relatively asymptomatic, underwent stenting of saphenous vein graft to obtuse marginal branch. Required transvenous pacemaker placement which has been removed today. Patient is doing well, relatively asymptomatic today, and cleared by cardiology to transfer to a monitor bed on selective. Labs were reviewed, CBC is relatively normal, hemoglobin is 8.2. BUN is 22 creatinine 1.58, improving over the last few days. Reevaluated today on 08/01/2018, patient is presently an overflow from [facility] [place] , waiting for a bed to become available. Denies any specific complaints, no cough no wheezing no shortness of breath. No significant arrhythmia or bradycardia noted. Blood pressure is stable, and his chest x-ray is showing no evidence of pulmonary edema. CBC was reviewed hemoglobin is 7.8, BUN is 18 creatinine is 1.29. The patient is seen again today 08/02/2018 in follow-up on the selective care unit. He is currently sitting up in a chair at the bedside. He is awake and alert in no acute distress. He denies any shortness of breath, cough or congestion. No chest pain, palpitations lightheadedness or dizziness. He is maintaining good O2 saturations in the high 90s on 2 L/m per nasal cannula. He is afebrile. Hemodynamically stable. Objective - Vital Signs Vital signs: Vital Signs Temp 98.9 F 08/02/18 04:00 Pulse 59 L 08/02/18 04:00 Resp 16 08/02/18 04:00 BP 128/55 08/02/18 04:00 Pulse Ox 98 08/02/18 04:00 Intake & Output 08/01/18 08/02/18 08/02/18 18:59 06:59 18:59 Intake Total 1872 800 240 Output Total 1450 400 200 Balance 422 400 40 Weight 89.6 kg 79.5 kg Intake: IV 450 800 Sodium Chloride 0.9% 1, 450 800 000 ml @ 50 mls/hr IV . Q20H [facility] Rx#:[id number] Oral 1422 240 Output: Urine 1450 400 200 Other: Voiding Method Urinal Urinal # Voids 1 # Bowel Movements 0 ABP, PAP, CO, CI - Last Documented Arterial Blood Pressure 149/39 - Exam Physical Exam: Revealed a 68-year-old white male, calm, in no distress, Head: Atraumatic, normocephalic. HEENT:[Neck is supple.] [No neck masses.] [No thyromegaly.] [No JVD.] Chest: [Clear throughout, no crackles, no rhonchi, no wheezes.] Cardiac Exam: [Normal S1 and S2, no S3 gallop, no murmur.] Abdomen: [Soft, nontender, no megaly, no rebound, no guarding, normal bowel sounds.] Extremities: [No clubbing, no edema, no cyanosis.] Neurological Exam: [No focal neurologic deficit. Psychiatric: Blunted affect, otherwise normal mental status examination.] - Labs CBC & Chem 7: 08/01/18 04:16 08/01/18 04:16 Labs: Abnormal Lab Results - Last 24 Hours (Table) 08/01/18 08/01/18 08/02/18 Range/Units 16:50 21:03 06:22 POC Glucose (mg/dL) 109 H 154 H 120 H (75-99) mg/dL 08/02/18 Range/Units 11:40 POC Glucose (mg/dL) 166 H (75-99) mg/dL Assessment and Plan Assessment: 1 recurrent non-ST segment elevation myocardial infarction complicated by heart failure. The patient underwent cardiac catheterization and subsequently saphenous vein graft stenting was performed to OM. The patient also developed sinus bradycardia/cardiac positive the patient currently has a transvenous pacemaker in place. Hemodynamically stable at this point in time. 2 coronary artery disease with previous four-vessel bypass surgery 3 congestion heart failure with an ejection fraction of 40-45% based on the most echocardiogram was done at [facility]. 4 chronic renal failure 5 chronic anemia 6 previous history aortic valve replacement TAVR 7 paroxysmal atrial fibrillation , currently in sinus bradycardia and the patient is a transvenous pacemaker in place 8 previous history of CVA with left-sided weakness 9 diabetes mellitus 10 diabetic peripheral neuropathy 11 peripheral vascular disease 12 hematologic disorder maintained on Hydrea on outpatient basis exact type is not known to me at this point 13 history of chronic iron deficiency anemia 14 prostate cancer 15 hypothyroidism 16 DNR/DNI CODE STATUS Recommendation: The patient was seen and evaluated by Dr. Cole. He is currently stable from the pulmonary and critical care standpoint. No pulmonary complaints. We'll continue with his current treatment plan. We'll continue to follow. I, the cosigning physician, performed a history & physical examination of the patient. Lungs sounds with faint crackles in the posterior bases. Maintaining good O2 saturations in the 90s on 2 L/m per nasal cannula. I discussed the assessment and plan of care with my nurse practitioner, Demetria Shankar. I attest to the above note as dictated by her.
[2018-08-02] MEDS: FERROUS SULFATE 325 MG TAB PO SCH (12:02)
[2018-08-02] MEDS: amLODIPine 10 MG TAB PO SCH (12:02)
--- NOTE | 2018-08-02 14:16 | P.PN ---
Subjective Gokul Ostsalome a 68 y.o.malewith a past medical history of CABG, history of CVA with residual left-sided weakness, diabetes type 2, hypertension, hyperlipidemia, aortic TAVR procedure who was recently treated at [facility] for acute hypoxic respiratory failure secondary to pulmonary edema and acute non-ST elevated [place]. Patient was transferred to [facility] for rehabilitation. Patient is being followed at the rehabilitation. On 07/19/2018 patient developed chest pain and was also found to have atrial fibrillation with rapid ventricular rate and shortness of breath. Patient was transferred to medical intensive care unit for further management. Patient was also hypotensive with blood pressure 84/52 on admission. Patient was started on Cardizem drip and nitro drip. Cardiology and pulmonary was consulted. Patient was found to have elevated troponin level 0.106, 0.126 and 0.115.proBNP is 7205 at [facility] Creatinine was 1.4-1.8 and on this admission it is 2.0 Currently patient is still in atrial fibrillation but rate is controlled and on the low side Chest x-ray showed pulmonary vascular congestion.however when he was at [facility] his dropped in wt from [address] of the brain : no acute hemorrhage pt underwent cardiac cath today and s/p stent placement , and he was transferred to ICU for further care of note pt was on xarelto 15 mg which is on hold on this admission pt has iyer re-inserted twice at [facility] due to urine retension of more than 300 cc 07/30/18 Patient is more awake today. Was noticed to be ready cardiac with arteries at 50s. Metoprolol was held. Cardiology are following the case. Who recommended to DC heparin and continue with aspirin and Plavix and change metoprolol to Coreg for better proximal blood pressure control. With possible we'll discontinue with the transvenous pacemaker tomorrow. Patient currently on Coreg 6.25 mg by mouth twice a day. No leukocytosis and hemoglobin 7.9, compared to 8.6 yesterday. Follow-up hemoglobin level. Creatinine at baseline at 1.79. Sugars well controlled. Prognosis remains guarded. Cardiology and pulmonary/critical care team are following the patient and their input is appreciated. 07/31/2018 Patient was given more awake than yesterday and she feels better patient lying in bed with no distress. Her this morning patient developed hypoglycemia which glucose down at 50 milligrams per/dl. Patient was given D50 in the 8 and his sugars trending up again. His Levemir was decreased from 35 units to 20 units. Of note patient was eaten yesterday almost 100% of his plates. 08/01/2018 Patient is clinically stable, he moved out of the ICU to the general medical floor. Patient's with no chest pain or dyspnea. No fever. Was 5.0, repeat potassium 4.7.his sugars are running at 100-208. Patient on Levemir 20 units 08/02/2018 pt is sitting in chair, not in distress, he denies chest pain , no dyspnea , labs and medication are reviewed , cardiology and pulmoanry team are following the pt . his sugar is better controlled currently , pt is stable for discharge and pending placement . Objective - Vital Signs Vital signs: Vital Signs Temp 97.1 F L 08/02/18 12:00 Pulse 55 L 08/02/18 12:00 Resp 16 08/02/18 12:00 BP 108/71 08/02/18 12:00 Pulse Ox 94 L 08/02/18 12:00 Intake & Output 08/01/18 08/02/18 08/02/18 18:59 06:59 18:59 Intake Total 1872 800 480 Output Total 1450 400 200 Balance 422 400 280 Weight 89.6 kg 79.5 kg Intake: IV 450 800 Sodium Chloride 0.9% 1, 450 800 000 ml @ 50 mls/hr IV . Q20H [facility] Rx#:[id number] Oral 1422 480 Output: Urine 1450 400 200 Other: Voiding Method Urinal Urinal Urinal # Voids 1 # Bowel Movements 0 1 ABP, PAP, CO, CI - Last Documented Arterial Blood Pressure 149/39 - Exam GENERAL: The patient is alert and oriented x3, not in any acute distress. Well developed, well nourished. HEENT: Pupils are round and equally reacting to light. EOMI. No scleral icterus. No conjunctival pallor. Normocephalic, atraumatic. No pharyngeal erythema. No thyromegaly. CARDIOVASCULAR: S1 and S2 present. No murmurs, rubs, or gallops. PULMONARY: Chest is clear to auscultation, no wheezing or crackles. ABDOMEN: Soft, nontender, nondistended, normoactive bowel sounds. No palpable organomegaly. MUSCULOSKELETAL: No joint swelling or deformity. EXTREMITIES: No cyanosis, clubbing, or pedal edema. NEUROLOGICAL: Gross neurological examination did not reveal any focal deficits. SKIN: No rashes. - Labs CBC & Chem 7: 08/01/18 04:16 08/01/18 04:16 Labs: Abnormal Lab Results - Last 24 Hours (Table) 08/01/18 08/01/18 08/02/18 Range/Units 16:50 21:03 06:22 POC Glucose (mg/dL) 109 H 154 H 120 H (75-99) mg/dL 08/02/18 Range/Units 11:40 POC Glucose (mg/dL) 166 H (75-99) mg/dL Assessment and Plan Assessment: Acute congestive heart failure with bilateral pleural effusion, currently on Lasix drip Acute Congestive heart failure , systolic as well as diastolic failure Acute hypoxic respiratory failure requrring oxygen per nasal cannula, 3 L/m Atrial fibrillation with rapid ventricular rate, rate controlled Chest pain with the mild troponin elevation. Possible non-ST elevated [place]. Coronary artery disease with history of CABG Paroxysmal atrial fibrillation on anticoagulation Recent history of acute hypoxic respiratory failure secondary to cardiogenic pulmonary edema and NSTEMI Aortic stenosis with previous aortic TAVRprocedure rate Acute on chronic kidney disease stage III Diabetes type 2 History of CVA with residual left-sided weakness Diabetic peripheral neuropathy Chronic iron deficiency anemia History of prostate cancer Hypothyroidism Medical Debility. BPH Plan: Patent is transferred out to the intensive care unit for further care . Patient will be continued on telemetry monitoring. As per cardiology recommendation, pt is s/p catheterization on 07/29/18. He remains on multiple cardiac meds as listed.Continue current medications.pain management, continue with diuretic in view of his pulmonary congestion and HTN, continue with insulin , Monitor patient closely. Monitor labs and vitals and electrolytes. Further plans based on his clinical course. DVT prophylaxis on subcutaneous heparin (on hold ) GI prophylaxis Protonix prognosis is guarded
--- NOTE | 2018-08-02 15:09 | P.PN ---
Subjective Progress Note Date: 08/02/18 Patient seen and examined on the telemetry unit today. Doing much better overall. Blood pressure 108/70, heart rate in the 50s, 94% on room air. Objective - Vital Signs Vital signs: Vital Signs Temp 97.1 F L 08/02/18 12:00 Pulse 55 L 08/02/18 12:00 Resp 16 08/02/18 12:00 BP 108/71 08/02/18 12:00 Pulse Ox 94 L 08/02/18 12:00 Intake & Output 08/01/18 08/02/18 08/02/18 18:59 06:59 18:59 Intake Total 1872 800 480 Output Total 1450 400 200 Balance 422 400 280 Weight 89.6 kg 79.5 kg Intake: IV 450 800 Sodium Chloride 0.9% 1, 450 800 000 ml @ 50 mls/hr IV . Q20H [facility] Rx#:[id number] Oral 1422 480 Output: Urine 1450 400 200 Other: Voiding Method Urinal Urinal Urinal # Voids 1 # Bowel Movements 0 1 ABP, PAP, CO, CI - Last Documented Arterial Blood Pressure 149/39 - Exam Physical Exam: Revealed a 68-year-old white male, calm, in no distress, Head: Atraumatic, normocephalic. HEENT:[Neck is supple.] [No neck masses.] [No thyromegaly.] [No JVD.] Chest: [Clear throughout, no crackles, no rhonchi, no wheezes.] Cardiac Exam: [Normal S1 and S2, no S3 gallop, no murmur.] Abdomen: [Soft, nontender, no megaly, no rebound, no guarding, normal bowel sounds.] Extremities: [No clubbing, no edema, no cyanosis.] Neurological Exam: [No focal neurologic deficit. Psychiatric: Blunted affect, otherwise normal mental status examination.] - Labs CBC & Chem 7: 08/01/18 04:16 08/01/18 04:16 Labs: Abnormal Lab Results - Last 24 Hours (Table) 08/01/18 08/01/18 08/02/18 Range/Units 16:50 21:03 06:22 POC Glucose (mg/dL) 109 H 154 H 120 H (75-99) mg/dL 08/02/18 Range/Units 11:40 POC Glucose (mg/dL) 166 H (75-99) mg/dL Assessment and Plan Plan: Assessment and plan 1 recurrent non-ST segment elevation myocardial infarction complicated by heart failure. The patient underwent cardiac catheterization and subsequently saphenous vein graft stenting was performed to OM. The patient also developed sinus bradycardia/cardiac positive the patient currently has a transvenous pacemaker in place. Hemodynamically stable at this point in time. 2 coronary artery disease with previous four-vessel bypass surgery 3 congestive heart failure with an ejection fraction of 40-45% based on the most echocardiogram was done at [facility]. Systolic acute on chronic 4 chronic renal failure 5 chronic anemia 6 previous history aortic valve replacement TAVR 7 paroxysmal atrial fibrillation , currently in sinus bradycardia and the patient is a transvenous pacemaker in place 8 previous history of CVA with left-sided weakness 9 diabetes mellitus 10 diabetic peripheral neuropathy 11 peripheral vascular disease 12 hematologic disorder maintained on Hydrea on outpatient basis exact type is not known to me at this point 13 history of chronic iron deficiency anemia 14 prostate cancer 15 hypothyroidism from cardiology's perspective, we'll recommend to continue the patient on his current medications. Plan for possible discharge home in 24-48 hours if stable. DNP note has been reviewed, I agree with a documented findings and plan of care. Patient was seen and examined.
[2018-08-02 16:07] LABS: Glucose,Whole Blood 143 mg/dL (75-99)
[2018-08-02] MEDS: VENLAFAXINE HCL ER 75 MG CAP PO SCH (20:32)
[2018-08-02] MEDS: ATORVASTATIN 20 MG TAB PO SCH (20:32)
[2018-08-02] MEDS: SODIUM CHLORIDE 0.9% 1,000 ML IV SCH (20:32)
[2018-08-02 20:55] LABS: Glucose,Whole Blood 298 mg/dL (75-99)
[2018-08-03 06:23] LABS: Glucose,Whole Blood 90 mg/dL (75-99)
[2018-08-03] MEDS: INSULIN ASPART 100 UNIT/ML 1 ML 10 ML VIAL SQ SCH ×3 (06:44→16:58)
[2018-08-03] MEDS: LEVOTHYROXINE 125 MCG TAB PO SCH (06:45)
[2018-08-03] MEDS: NICOTINE 14MG/24HR PATCH TRANSDERM SCH (06:45)
[2018-08-03] MEDS: PANTOPRAZOLE 40 MG TABLET PO SCH (06:45)
[2018-08-03] MEDS: CARVEDILOL 6.25 MG TAB PO SCH ×2 (06:45→16:05)
[2018-08-03 08:43] VITALS: RESP 16; TEMP 97
[2018-08-03] MEDS: INSULIN DETEMIR 100 UNIT/ML 10 ML VIAL SQ SCH (08:43)
[2018-08-03] MEDS: ASPIRIN 81 MG PO SCH (08:44)
[2018-08-03] MEDS: AMOXIC-POT CLAV 875-125MG 1 EACH TAB PO SCH (08:44)
[2018-08-03] MEDS: FUROSEMIDE 40 MG TAB PO SCH (08:44)
[2018-08-03] MEDS: CLOPIDOGREL 75 MG TAB PO SCH (08:44)
[2018-08-03] MEDS: hydrALAZINE HCL 25 MG TAB PO SCH ×2 (08:46→16:05)
[2018-08-03] MEDS: PREGABALIN 100 MG CAP PO SCH (08:46)
[2018-08-03 12:04] LABS: Glucose,Whole Blood 183 mg/dL (75-99)
[2018-08-03] MEDS: FERROUS SULFATE 325 MG TAB PO SCH (12:23)
[2018-08-03] MEDS: amLODIPine 10 MG TAB PO SCH (12:23)
--- NOTE | 2018-08-03 14:25 | P.PN ---
Subjective Progress Note Date: 08/03/18 Patient seen and examined on the telemetry unit today. Doing much better overall. Blood pressure 108/70, heart rate in the 50s, 94% on room air. 08/03/2018 seen and examined today, continues to feel well overall. I pressure 146/ 60 with a heart rate in the 50s to 60s, 100% on room air. Objective - Vital Signs Vital signs: Vital Signs Temp 97 F L 08/03/18 08:40 Pulse 55 L 08/03/18 11:50 Resp 16 08/03/18 11:50 BP 147/61 08/03/18 11:50 Pulse Ox 100 08/03/18 11:50 Intake & Output 08/02/18 08/03/18 08/03/18 18:59 06:59 18:59 Intake Total 1080 590 180 Output Total 800 700 Balance 280 590 -520 Weight 87.5 kg Intake: IV 110 Invasive Line 5 30 Sodium Chloride 0.9% 1, 80 000 ml @ 50 mls/hr IV . Q20H [facility] Rx#:[id number] Oral 1080 480 180 Output: Urine 800 700 Other: Voiding Method Urinal Urinal Urinal # Voids 1 2 # Bowel Movements 1 ABP, PAP, CO, CI - Last Documented Arterial Blood Pressure 149/39 - Exam Physical Exam: Revealed a 68-year-old white male, calm, in no distress, Head: Atraumatic, normocephalic. HEENT:[Neck is supple.] [No neck masses.] [No thyromegaly.] [No JVD.] Chest: [Clear throughout, no crackles, no rhonchi, no wheezes.] Cardiac Exam: [Normal S1 and S2, no S3 gallop, no murmur.] Abdomen: [Soft, nontender, no megaly, no rebound, no guarding, normal bowel sounds.] Extremities: [No clubbing, no edema, no cyanosis.] Neurological Exam: [No focal neurologic deficit. Psychiatric: Blunted affect, otherwise normal mental status examination.] - Labs CBC & Chem 7: 08/01/18 04:16 08/01/18 04:16 Labs: Abnormal Lab Results - Last 24 Hours (Table) 08/02/18 08/02/18 08/03/18 Range/Units 15:59 20:39 12:03 POC Glucose (mg/dL) 143 H 298 H 183 H (75-99) mg/dL Assessment and Plan Plan: Assessment and plan 1 recurrent non-ST segment elevation myocardial infarction complicated by heart failure. The patient underwent cardiac catheterization and subsequently saphenous vein graft stenting was performed to OM. The patient also developed sinus bradycardia/cardiac positive the patient currently has a transvenous pacemaker in place. Hemodynamically stable at this point in time. 2 coronary artery disease with previous four-vessel bypass surgery 3 congestive heart failure with an ejection fraction of 40-45% based on the most echocardiogram was done at [facility]. Systolic acute on chronic 4 chronic renal failure 5 chronic anemia 6 previous history aortic valve replacement TAVR 7 paroxysmal atrial fibrillation , currently in sinus bradycardia and the patient is a transvenous pacemaker in place 8 previous history of CVA with left-sided weakness 9 diabetes mellitus 10 diabetic peripheral neuropathy 11 peripheral vascular disease 12 hematologic disorder maintained on Hydrea on outpatient basis exact type is not known to me at this point 13 history of chronic iron deficiency anemia 14 prostate cancer 15 hypothyroidism from cardiology's perspective, we'll recommend to continue the patient on his current medications. Okay for discharge home from cardiology's perspective. We 'll make him a follow-up appointment in the office post discharge. DNP note has been reviewed, I agree with a documented findings and plan of care. Patient was seen and examined.
[2018-08-03 16:05] VITALS: BP 164/83; PULSE 56
--- NOTE | 2018-08-03 16:07 | P.DS ---
Providers Date of admission: 07/28/18 17:31 Attending physician: Kendy Camacho Consults: 07/28/18 18:23 Consult Physician Routine Consulting Provider: Rossi Whittaker Consult Reason/Comments: cad Do you want consulting provider notified?: Yes 07/29/18 16:27 Consult Physician Routine Consulting Provider: Cardiology Jabari Consult Reason/Comments: Post Interventional patient Do you want consulting provider notified?: Already Contacted Primary care physician: [facility] Course: Gokul Bryant a 68 y.o.malewith a past medical history of CABG, history of CVA with residual left-sided weakness, diabetes type 2, hypertension, hyperlipidemia, aortic TAVR procedure who was recently treated at [facility] for acute hypoxic respiratory failure secondary to pulmonary edema and acute non-ST elevated [place]. Patient was transferred to [facility] for rehabilitation. Patient is being followed at the rehabilitation. On 07/19/2018 patient developed chest pain and was also found to have atrial fibrillation with rapid ventricular rate and shortness of breath. Patient was transferred to medical intensive care unit for further management.Patient was also hypotensive with blood pressure 84/52 on admission. Patient was started on Cardizem drip and nitro drip. Cardiology and pulmonary was consulted. Patient was found to have elevated troponin level 0.106, 0.126 and 0.115.proBNP is 7205 at [facility] .Creatinine was 1.4-1.8 and on this admission it is 2.0. CT of the brain : no acute hemorrhage The patient underwent cardiac catheterization and subsequently saphenous vein graft stenting was performed to OM. The patient also developed sinus bradycardia/cardiac positive, the patient currently has a transvenous pacemaker in place. Hemodynamically stable at this point in time. upon discharge he continues to feel well overall. blood pressure 146/60 with a heart rate in the 50s to 60s, 100% on room air. pt has iyer re-inserted twice at [facility] due to urine retension of more than 300 cc Patient was cleared by cardiology for discharge Problems and management plan was discussed with the patient and he verbalized understanding and acceptance Patient was found stable and can be discharged to rehab, subacute rehab, however he needs follow-up as an outpatient. Patient was instructed to follow up with his PCP in one week. [facility] and can call and make appointment as instructed. Patient also informed of the cardiology team will contact him for an appointment and he agrees with that physical exam Gen.: Patient alert awake and oriented X 3, NOT IN DISTRESS CVS: s1-s2, RRR, no murmur CHEST:bilateral CTA, no wheezing or crepitation Abdomen: Soft, no tenderness, no distention, positive bowel sounds Extremities: No leg edema or induration Time spent more than 35 minutes Patient Condition at Discharge: Good Plan - Discharge Summary Discharge Rx Participant: No New Discharge Prescriptions: New Carvedilol [Coreg] 6.25 mg PO BID-W/MEALS #60 tab Nitroglycerin Sl Tabs [Nitrostat] 0.4 mg SUBLINGUAL Q5M PRN #25 tab PRN Reason: Chest Pain Acetaminophen Tab [Tylenol] 650 mg PO Q6HR PRN tab PRN Reason: Mild Pain Or Fever > 100.5 Amoxic-Pot Clav 875-125Mg [Augmentin 875-125] 1 each PO Q12HR 3 Days #6 tab Insulin Detemir [Levemir] 20 unit SQ DAILY syr Continue amLODIPine BESYLATE [Norvasc] 10 mg PO DAILY Clopidogrel [Plavix] 75 mg PO DAILY Ferrous Sulfate [Iron (65 MG Elemental)] 325 mg PO DAILY Levothyroxine Sodium [Synthroid] 125 mcg PO DAILY Pregabalin [Lyrica] 200 mg PO BID Venlafaxine HCl [Effexor XR] 75 mg PO HS Atorvastatin [Lipitor] 20 mg PO HS Aspirin 81 mg PO DAILY chew hydrALAZINE HCL [Apresoline] 25 mg PO TID tab INSULIN LISPRO (HumaLOG) [humaLOG] 0 unit SQ ACHS #1 vial Nicotine 14Mg/24Hr Patch [Habitrol] 1 patch TRANSDERM DAILY patch Pantoprazole [Protonix] 40 mg PO AC-BRKFST tablet. Furosemide [Lasix] 40 mg PO DAILY #1 tablet Isosorbide Mononitrate ER [Imdur] 60 mg PO DAILY #30 tab.er.24h Metoprolol Tartrate [Lopressor] 50 mg PO BID #60 tab Discontinued Insulin Glargine [Lantus] 35 unit SQ DAILY Pamidronate [Aredia] 60 mg IV DAILY Discharge Medication List amLODIPine BESYLATE [Norvasc] 10 mg PO DAILY 04/05/16 [History] Clopidogrel [Plavix] 75 mg PO DAILY 03/11/16 [History] Ferrous Sulfate [Iron (65 MG Elemental)] 325 mg PO DAILY 03/11/16 [History] Levothyroxine Sodium [Synthroid] 125 mcg PO DAILY 06/14/18 [History] Atorvastatin [Lipitor] 20 mg PO HS 07/04/18 [History] Pregabalin [Lyrica] 200 mg PO BID 07/04/18 [History] Venlafaxine HCl [Effexor XR] 75 mg PO HS 07/04/18 [History] Aspirin 81 mg PO DAILY chew 07/13/18 [Rx] Furosemide [Lasix] 40 mg PO DAILY #1 tablet 07/13/18 [Rx] INSULIN LISPRO (HumaLOG) [humaLOG] 0 unit SQ ACHS #1 vial 07/13/18 [Rx] Nicotine 14Mg/24Hr Patch [Habitrol] 1 patch TRANSDERM DAILY patch 07/13/18 [Rx] Pantoprazole [Protonix] 40 mg PO AC-BRKFST tablet.dr 07/13/18 [Rx] hydrALAZINE HCL [Apresoline] 25 mg PO TID tab 07/13/18 [Rx] Acetaminophen Tab [Tylenol] 650 mg PO Q6HR PRN tab 08/03/18 [Rx] Amoxic-Pot Clav 875-125Mg [Augmentin 875-125] 1 each PO Q12HR 3 Days #6 tab [Rx] Carvedilol [Coreg] 6.25 mg PO BID-W/MEALS #60 tab 08/03/18 [Rx] Insulin Detemir [Levemir] 20 unit SQ DAILY syr 08/03/18 [Rx] Isosorbide Mononitrate ER [Imdur] 60 mg PO DAILY #30 tab.er.24h 08/03/18 [Rx] Metoprolol Tartrate [Lopressor] 50 mg PO BID #60 tab 08/03/18 [Rx] Nitroglycerin Sl Tabs [Nitrostat] 0.4 mg SUBLINGUAL Q5M PRN #25 tab 08/03/18 [Rx ] Follow up Appointment(s)/Referral(s): Rossi Whittaker MD [STAFF PHYSICIAN] - 1 Week Activity/Diet/Wound Care/Special Instructions: cardiac diet activity as tolerated Discharge Disposition: TRANSFER TO SNF/ECF
[2018-08-03 17:31] LABS: Glucose,Whole Blood 136 mg/dL (75-99)
== END 2018-08-03 17:34 | DRG 246 ==
LOC: 6SEL 17:31 → 6ICU 07-29 16:40 → 6SEL 08-01 13:23
PROVIDERS: ADMIT Hospitalist; ATTEND Hospitalist
PROC: 4A023N7 Measurement of Cardiac Sampling and Pressure, Left Heart, Percutaneous Approach (ICD-10-PCS; 2018-07-29)
PROC: B2121ZZ Fluoroscopy of Single Coronary Artery Bypass Graft using Low Osmolar Contrast (ICD-10-PCS; 2018-07-29)
PROC: 5A1223Z Performance of Cardiac Pacing, Continuous (ICD-10-PCS; 2018-07-29)
PROC: 027034Z Dilation of Coronary Artery, One Artery with Drug-eluting Intraluminal Device, Percutaneous Approach (ICD-10-PCS; principal; 2018-07-29 15:25)
DX: I22.2 Subsequent non-ST elevation (NSTEMI) myocardial infarction (principal); I50.41 Acute combined systolic (congestive) and diastolic (congestive) heart failure; J96.01 Acute respiratory failure with hypoxia; I13.0 Hypertensive heart and chronic kidney disease with heart failure and stage 1 through stage 4 chronic kidney disease, or unspecified chronic kidney disease; I25.810 Atherosclerosis of coronary artery bypass graft(s) without angina pectoris; I69.354 Hemiplegia and hemiparesis following cerebral infarction affecting left non-dominant side; N17.9 Acute kidney failure, unspecified; I21.4 Non-ST elevation (NSTEMI) myocardial infarction; R00.1 Bradycardia, unspecified; E11.51 Type 2 diabetes mellitus with diabetic peripheral angiopathy without gangrene; E11.649 Type 2 diabetes mellitus with hypoglycemia without coma; E78.5 Hyperlipidemia, unspecified; G40.909 Epilepsy, unspecified, not intractable, without status epilepticus; Z95.1 Presence of aortocoronary bypass graft; Z87.891 Personal history of nicotine dependence; Z95.2 Presence of prosthetic heart valve; I48.0 Paroxysmal atrial fibrillation; I48.2 Chronic atrial fibrillation; N18.3 Chronic kidney disease, stage 3 (moderate); N40.1 Benign prostatic hyperplasia with lower urinary tract symptoms; R33.8 Other retention of urine; Z66 Do not resuscitate; Z79.01 Long term (current) use of anticoagulants; E11.42 Type 2 diabetes mellitus with diabetic polyneuropathy; E11.22 Type 2 diabetes mellitus with diabetic chronic kidney disease; D50.9 Iron deficiency anemia, unspecified; E03.9 Hypothyroidism, unspecified; Z79.02 Long term (current) use of antithrombotics/antiplatelets; Z79.4 Long term (current) use of insulin; Z79.82 Long term (current) use of aspirin; Z79.890 Hormone replacement therapy; Z82.49 Family history of ischemic heart disease and other diseases of the circulatory system; Z85.46 Personal history of malignant neoplasm of prostate; Z98.42 Cataract extraction status, left eye; Z98.41 Cataract extraction status, right eye; Z96.1 Presence of intraocular lens; Z57.4 Occupational exposure to toxic agents in agriculture
CPT/HCPCS: 36600; 70450; 71045; 80048; 80053; 81001; 82805; 83036; 83735; 85025; 85610; 85730

== ENCOUNTER 2018-11-27 17:16 | Emergency (ER) | payer MEDICARE, OTHER ==
[2018-11-27] MEDS ORDERED: GLYCERIN ADULT SUPPOSITORY 1 EACH RECTAL STA (18:46)
[2018-11-27] MEDS ORDERED: SENNOSIDES-DOCUSATE SODIUM 1 EACH TAB PO STA (18:46)
[2018-11-27] MEDS ORDERED: SODIUM CHLORIDE 0.9% 1,000 ML IV STA (18:46)
[2018-11-27 19:35] LABS: Anisocytosis Moderate; Basophils % (A) 0 %; Eosinophils # (A) 1.4 k/uL (0-0.7); Eosinophils % (A) 18 %; HCT 31.6 % (39.0-53.0); HGB 11.2 gm/dL (13.0-17.5); Lymphocytes # (A) 1.5 k/uL (1.0-4.8); Lymphocytes % (A) 21 %; MCH 36.2 pg (25.0-35.0); MCHC 35.6 g/dL (31.0-37.0); MCV 101.9 fL (80.0-100.0); Macrocytosis Marked; Mean Platelet Volume 6.2; Monocytes # (A) 0.4 k/uL (0-1.0); Monocytes % (A) 6 %; Neutrophils # (A) 3.8 k/uL (1.3-7.7); Neutrophils % (A) 52 %; Platelet Count 379 k/uL (150-450); RDW 21.8 % (11.5-15.5); WBC 7.3 k/uL (3.8-10.6)
[2018-11-27 19:44] LABS: ALT 11 U/L (21-72); AST 12 U/L (17-59); Albumin 3.8 g/dL (3.5-5.0); Alkaline Phosphatase 78 U/L (38-126); Amylase 42 U/L (30-110); Anion Gap 8 mmol/L; Blood Urea Nitrogen 18 mg/dL (9-20); Calcium 10.4 mg/dL (8.4-10.2); Carbon Dioxide 23 mmol/L (22-30); Chloride 111 mmol/L (98-107); Glucose 61 mg/dL (74-99); Lipase <10 U/L (23-300); Magnesium 1.8 mg/dL (1.6-2.3); Phosphorus 3.9 mg/dL (2.5-4.5); Potassium 3.3 mmol/L (3.5-5.1); Sodium 142 mmol/L (137-145); Total Bilirubin 0.4 mg/dL (0.2-1.3); Total Protein 6.5 g/dL (6.3-8.2)
[2018-11-27 19:46] LABS: Appearance,Urine Clear (Clear); Bilirubin,Urine Negative (Negative); Blood,Urine Negative (Negative); Color,Urine Yellow; Glucose,Urine (UA) Negative (Negative); Ketones,Urine Negative (Negative); Leukocyte Esterase,Urine Negative (Negative); Mucus,Urine Rare /hpf; Nitrite,Urine Negative (Negative); Protein,Urine 3+ (Negative); RBC,Urine 2 /hpf (0-5); Specific Gravity,Urine 1.015 (1.001-1.035); Urobilinogen,Urine <2.0 mg/dL (<2.0); WBC,Urine 2 /hpf (0-5)
--- NOTE | 2018-11-27 19:52 | ED ---
Abdominal Pain HPI - General Chief Complaint: Abdominal Pain Stated Complaint: no bowel movement Time Seen by Provider: 11/27/18 18:46 Source: patient, family, RN notes reviewed, old records reviewed Mode of arrival: wheelchair Limitations: no limitations - History of Present Illness Initial Comments: This is a 5-year-old male the ER for evaluation. Patient resents with chronic constipation and abdominal pain. The symptoms are going on and off for a month. He has been taking [id number] stool softeners with no significant help. He has mild abdominal pain, take tramadol for pain. Chronic pain chronic leg pain. Patient is no nausea vomiting, no significant abdominal surgical history. Bowel movement yesterday MD Complaint: abdominal pain (Decreased bowel movements) -: month(s) Location: diffuse, periumbilical Radiation: none Migration to: no migration Severity: mild Severity scale (1-10): 3 Quality: cramping, aching Improves With: nothing Worsens With: nothing Associated Symptoms: constipation Treatments Prior to Arrival: prescription analgesics - Related Data Home Medications Medication Instructions Recorded Confirmed amLODIPine BESYLATE [Norvasc] 10 mg PO DAILY 02/17/16 07/28/18 Clopidogrel [Plavix] 75 mg PO DAILY 03/11/16 07/28/18 Ferrous Sulfate [Iron (65 MG 325 mg PO DAILY 03/11/16 07/28/18 Elemental)] Levothyroxine Sodium [Synthroid] 125 mcg PO DAILY 06/14/18 07/28/18 Atorvastatin [Lipitor] 20 mg PO HS 07/04/18 07/28/18 Pregabalin [Lyrica] 200 mg PO BID 07/04/18 07/28/18 Venlafaxine HCl [Effexor XR] 75 mg PO HS 07/04/18 07/28/18 Previous Rx's Medication Instructions Recorded Aspirin 81 mg PO DAILY chew 07/13/18 Furosemide [Lasix] 40 mg PO DAILY #1 tablet 07/13/18 INSULIN LISPRO (HumaLOG) [humaLOG] 0 unit SQ ACHS #1 vial 07/13/18 Nicotine 14Mg/24Hr Patch [Habitrol] 1 patch TRANSDERM DAILY patch 07/13/18 Pantoprazole [Protonix] 40 mg PO AC-BRKFST tablet. 07/13/18 hydrALAZINE HCL [Apresoline] 25 mg PO TID tab 07/13/18 Acetaminophen Tab [Tylenol] 650 mg PO Q6HR PRN tab 08/03/18 Amoxic-Pot Clav 875-125Mg 1 each PO Q12HR 3 Days #6 tab 08/03/18 [Augmentin 875-125] Carvedilol [Coreg] 6.25 mg PO BID-W/MEALS #60 tab 08/03/18 Insulin Detemir [Levemir] 20 unit SQ DAILY syr 08/03/18 Isosorbide Mononitrate ER [Imdur] 60 mg PO DAILY #30 tab.er.24h 08/03/18 Metoprolol Tartrate [Lopressor] 50 mg PO BID #60 tab 08/03/18 Nitroglycerin Sl Tabs [Nitrostat] 0.4 mg SUBLINGUAL Q5M PRN #25 tab 08/03/18 Allergies Allergy/AdvReac Type Severity Reaction Status Date / Time No Known Allergies Allergy Verified 11/27/18 17:23 Review of Systems ROS Statement: Those systems with pertinent positive or pertinent negative responses have been documented in the HPI. ROS Other: All systems not noted in ROS Statement are negative. Past Medical History Past Medical History: CVA/TIA, Diabetes Mellitus, Hyperlipidemia, Hypertension, Myocardial Infarction (ID), Neurologic Disorder, Pneumonia, Seizure Disorder, Thyroid Disorder Additional Past Medical History / Comment(s): Coronary artery disease, four- vessel bypass surgery, aortic valve replacement TAVR, prostate cancer, previous CVA, diabetes mellitus, hypertension, hyperlipidemia, chronic anemia, chronic smoker, previous history of agent orange exposure, there is history of skin disease of an unknown type, hypothyroidism, iron deficiency anemia, peripheral vascular disease, hematologic disease of an unknown type at this point in time and the patient has been seen by Dr. hidalgo and the patient has been maintained on Hydrea, peripheral neuropathy. 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 Last Myocardial Infarction Date:: 02/17/2016 History of Any Multi-Drug Resistant Organisms: None Reported Past Surgical History: Coronary Bypass/CABG, Heart Catheterization, Orthopedic Surgery Additional Past Surgical History / Comment(s): 02/19/16 cardiac cath, 02/24/16 CABG quadrupal with aortic valve replacement (TAVR), RT HAND INDEX FINGER BONE CHIP REMOVED, RT WRIST(JAMMED) PT STATED THEY CUT THE BONE AND REALIGNED IT, colonoscopy, bilateral cataract removals/lens implants. Past Anesthesia/Blood Transfusion Reactions: No Reported Reaction Past Psychological History: No Psychological Hx Reported Smoking Status: Current every day smoker Past Alcohol Use History: None Reported Past Drug Use History: None Reported - Past Family History Father Family Medical History: Coronary Artery Disease (CAD) Additional Family Medical History / Comment(s): VASCULAR PROBLEMS/valve replacement. Mother Family Medical History: Coronary Artery Disease (CAD) Additional Family Medical History / Comment(s): VASCULAR PROBLEMS HAD PIG VALVE. General Exam Limitations: no limitations General appearance: alert, in no apparent distress Head exam: Present: atraumatic, normocephalic, normal inspection Eye exam: Present: normal appearance, PERRL, EOMI. Absent: scleral icterus, conjunctival injection, periorbital swelling ENT exam: Present: normal exam, mucous membranes moist Neck exam: Present: normal inspection. Absent: tenderness, meningismus, lymphadenopathy Respiratory exam: Present: normal lung sounds bilaterally. Absent: respiratory distress, wheezes, rales, rhonchi, stridor Cardiovascular Exam: Present: regular rate, normal rhythm, normal heart sounds. Absent: systolic murmur, diastolic murmur, rubs, gallop, clicks GI/Abdominal exam: Present: soft, normal bowel sounds. Absent: distended, tenderness, guarding, rebound, rigid Extremities exam: Present: normal inspection, full ROM, normal capillary refill. Absent: tenderness, pedal edema, joint swelling, calf tenderness Back exam: Present: normal inspection Neurological exam: Present: alert, oriented X3, CN II-XII intact Psychiatric exam: Present: normal affect, normal mood Skin exam: Present: warm, dry, intact, normal color. Absent: rash Course Vital Signs 11/27/18 17:21 Temperature 98.6 F Pulse Rate 75 Respiratory 18 Rate Blood Pressure 203/70 O2 Sat by Pulse 97 Oximetry - Reevaluation(s) Reevaluation #1: 11/27/18 20:00 medical record is reviewd Reevaluation #2: 11/27/18 20:00 patient will be given bowel regimen Medical Decision Making - Medical Decision Making 68 male to ED for abd pain and constipation, will dc w bowel regimen, XR negative , potassium replaced - Lab Data Result diagrams: 11/27/18 19:19 11/27/18 19:19 Lab Results 11/27/18 11/27/18 11/27/18 Range/Units 19:19 19:19 19:19 WBC 7.3 (3.8-10.6) k/uL RBC 3.10 L (4.30-5.90) m/uL Hgb 11.2 L (13.0-17.5) gm/dL Hct 31.6 L (39.0-53.0) % MCV 101.9 H (80.0-100.0) fL MCH 36.2 H (25.0-35.0) pg MCHC 35.6 (31.0-37.0) g/dL RDW 21.8 H (11.5-15.5) % Sodium 142 (137-145) mmol/L Potassium 3.3 L (3.5-5.1) mmol/L Chloride 111 H (98-107) mmol/L Carbon Dioxide 23 (22-30) mmol/L Anion Gap 8 mmol/L BUN 18 (9-20) mg/dL Creatinine 1.13 (0.66-1.25) mg/dL Est GFR (CKD-EPI)AfAm 76 (>60 ml/min/1.73 sqM) Est GFR (CKD-EPI)NonAf 66 (>60 ml/min/1.73 sqM) Glucose 61 L (74-99) mg/dL Calcium 10.4 H (8.4-10.2) mg/dL Phosphorus 3.9 (2.5-4.5) mg/dL Magnesium 1.8 (1.6-2.3) mg/dL Total Bilirubin 0.4 (0.2-1.3) mg/dL AST 12 L (17-59) U/L ALT 11 L (21-72) U/L Alkaline Phosphatase 78 (38-126) U/L Total Protein 6.5 (6.3-8.2) g/dL Albumin 3.8 (3.5-5.0) g/dL Amylase 42 (30-110) U/L Lipase <10 L (23-300) U/L Urine Color Yellow Urine Appearance Clear (Clear) Urine pH 6.0 (5.0-8.0) Ur Specific [place] 1.015 (1.001-1.035) Urine Protein 3+ H (Negative) Urine Glucose (UA) Negative (Negative) Urine Ketones Negative (Negative) Urine Blood Negative (Negative) Urine Nitrite Negative (Negative) Urine Bilirubin Negative (Negative) Urine Urobilinogen <2.0 (<2.0) mg/dL Ur Leukocyte Esterase Negative (Negative) Urine RBC 2 (0-5) /hpf Urine WBC 2 (0-5) /hpf Urine Mucus Rare H (None) /hpf - Radiology Data Radiology results: report reviewed (XR abd series w chest NAD), image reviewed Disposition Clinical Impression: Abdominal pain, Constipation Disposition: HOME SELF-CARE Condition: Good Instructions: Constipation (ED) Is patient prescribed a controlled substance at d/c from ED?: No Referrals: [facility],Clinic [Primary Care Provider] - 1-2 days
[2018-11-27] MEDS ORDERED: POTASSIUM BICARBONATE/CIT AC 20 MEQ TABLET.EFF PO ONE (19:53)
--- NOTE | 2018-11-27 19:53 | XR ---
EXAMINATION TYPE: XR abdomen acute w cxr DATE OF EXAM: 11/27/2018 COMPARISON: NONE HISTORY: Constipation. Pain. TECHNIQUE: Chest x-ray with supine and upright abdomen FINDINGS: There is no heart failure nor confluent pneumonic infiltrate. Costophrenic angles are clear. Thoracic aorta is atheromatous. There are sternal wires. There is no sign of intestinal obstruction or pneumoperitoneum. Fecal pattern is normal. There is no sign of a mass. There are no pathologic calcifications over the kidneys. IMPRESSION: Nonacute abdomen. No active cardiopulmonary disease. There is clearing of the pulmonary interstitial edema compared to 07/29/2018.
[2018-11-27] MEDS ORDERED: MAGNESIUM CITRATE 296 ML BOTTLE PO ONE (20:01)
[2018-11-27 20:15] LABS: Anisocytosis (M) Present; Poikilocytosis (M) Present
[2018-11-27 20:21] VITALS: BP 186/72; PULSE 62; RESP 16; TEMP 97.9
== END 2018-11-27 20:16 | disposition home or self-care (01) ==
LOC: EC 17:16
DX: K59.00 Constipation, unspecified (principal); I10 Essential (primary) hypertension; E78.5 Hyperlipidemia, unspecified; I25.2 Old myocardial infarction; E03.9 Hypothyroidism, unspecified; G40.909 Epilepsy, unspecified, not intractable, without status epilepticus; D64.9 Anemia, unspecified; I73.9 Peripheral vascular disease, unspecified; E11.42 Type 2 diabetes mellitus with diabetic polyneuropathy; I25.10 Atherosclerotic heart disease of native coronary artery without angina pectoris; F17.200 Nicotine dependence, unspecified, uncomplicated; Z85.46 Personal history of malignant neoplasm of prostate; Z86.73 Personal history of transient ischemic attack (TIA), and cerebral infarction without residual deficits; Z95.1 Presence of aortocoronary bypass graft; Z95.2 Presence of prosthetic heart valve; Z98.890 Other specified postprocedural states; Z79.02 Long term (current) use of antithrombotics/antiplatelets; Z79.890 Hormone replacement therapy; Z79.899 Other long term (current) drug therapy
CPT/HCPCS: 36415; 74022; 80053; 81001; 82150; 83690; 83735; 84100; 85025; 87086

== ENCOUNTER 2019-01-05 20:40 | Inpatient (IN) | payer OTHER, MEDICARE ==
--- NOTE | 2019-01-05 21:40 | ED ---
Chest Pain HPI - General Chief Complaint: Chest Pain Stated Complaint: chest pain Time Seen by Provider: 01/05/19 20:45 Source: patient Mode of arrival: EMS Limitations: no limitations - History of Present Illness Initial Comments: Patient is a 68-year-old male presenting for chest pain. The patient states that it started on the left side of his chest around 60 5 PM and felt with the sharp stabbing sensation without radiation. He noted to have a little bit of numbness in both his hands and he was given aspirin as well as nitro and the symptoms resolved. He denies any shortness breath, coughing, fevers or chills, nausea/vomiting/diarrhea. He also states that he had a stent placed in July. - Related Data Home Medications Medication Instructions Recorded Confirmed amLODIPine BESYLATE [Norvasc] 10 mg PO DAILY 02/17/16 07/28/18 Clopidogrel [Plavix] 75 mg PO DAILY 03/11/16 07/28/18 Ferrous Sulfate [Iron (65 MG 325 mg PO DAILY 03/11/16 07/28/18 Elemental)] Levothyroxine Sodium [Synthroid] 125 mcg PO DAILY 06/14/18 07/28/18 Atorvastatin [Lipitor] 20 mg PO HS 07/04/18 07/28/18 Pregabalin [Lyrica] 200 mg PO BID 07/04/18 07/28/18 Venlafaxine HCl [Effexor XR] 75 mg PO HS 07/04/18 07/28/18 Previous Rx's Medication Instructions Recorded Aspirin 81 mg PO DAILY chew 07/13/18 Furosemide [Lasix] 40 mg PO DAILY #1 tablet 07/13/18 INSULIN LISPRO (HumaLOG) [humaLOG] 0 unit SQ ACHS #1 vial 07/13/18 Nicotine 14Mg/24Hr Patch [Habitrol] 1 patch TRANSDERM DAILY patch 07/13/18 Pantoprazole [Protonix] 40 mg PO AC-BRKFST tablet. 07/13/18 hydrALAZINE HCL [Apresoline] 25 mg PO TID tab 07/13/18 Acetaminophen Tab [Tylenol] 650 mg PO Q6HR PRN tab 08/03/18 Amoxic-Pot Clav 875-125Mg 1 each PO Q12HR 3 Days #6 tab 08/03/18 [Augmentin 875-125] Carvedilol [Coreg] 6.25 mg PO BID-W/MEALS #60 tab 08/03/18 Insulin Detemir (Levemir) [Levemir] 20 unit SQ DAILY syr 08/03/18 Isosorbide Mononitrate ER [Imdur] 60 mg PO DAILY #30 tab.er.24h 08/03/18 Metoprolol Tartrate [Lopressor] 50 mg PO BID #60 tab 08/03/18 Nitroglycerin Sl Tabs [Nitrostat] 0.4 mg SUBLINGUAL Q5M PRN #25 tab 08/03/18 Polyethylene Glycol 3350 [Miralax] 17 gm PO DAILY #7 packet 11/27/18 Allergies Allergy/AdvReac Type Severity Reaction Status Date / Time No Known Allergies Allergy Verified 01/05/19 21:16 Review of Systems ROS Statement: Those systems with pertinent positive or pertinent negative responses have been documented in the HPI. Constitutional: Negative for chills, fatigue and fever. HENT: Negative for congestion. Respiratory: Negative for chest tightness, shortness of breath and wheezing. Negative for cough Cardiovascular: Positive for chest pain and negative for palpitations. Gastrointestinal: Negative for abdominal pain. Negative for abdominal distention , diarrhea, nausea and vomiting. Genitourinary: Negative for dysuria. Musculoskeletal: Negative for back pain, neck pain and neck stiffness. Positive for numbness and tingling Skin: Negative for color change. Neurological: Negative for dizziness, speech difficulty, weakness and light- headedness. Psychiatric/Behavioral: Negative for agitation and confusion. Negative for anxiety ROS Other: All systems not noted in ROS Statement are negative. EKG Findings - EKG Comments: EKG Findings:: EKG shows 78 bpm, FL interval 198, QRS 98, QTC 456. There are no significant ST depressions or elevations with PVCs. Past Medical History Past Medical History: CVA/TIA, Diabetes Mellitus, Hyperlipidemia, Hypertension, Myocardial Infarction (LA), Neurologic Disorder, Pneumonia, Seizure Disorder, Thyroid Disorder Additional Past Medical History / Comment(s): Coronary artery disease, four- vessel bypass surgery, aortic valve replacement TAVR, prostate cancer, previous CVA, diabetes mellitus, hypertension, hyperlipidemia, chronic anemia, chronic smoker, previous history of agent orange exposure, there is history of skin disease of an unknown type, hypothyroidism, iron deficiency anemia, peripheral vascular disease, hematologic disease of an unknown type at this point in time and the patient has been seen by Dr. hidalgo and the patient has been maintained on Hydrea, peripheral neuropathy. 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 Last Myocardial Infarction Date:: 02/17/2016 History of Any Multi-Drug Resistant Organisms: None Reported Past Surgical History: Coronary Bypass/CABG, Heart Catheterization, Orthopedic Surgery Additional Past Surgical History / Comment(s): 02/19/16 cardiac cath, 02/24/16 CABG quadrupal with aortic valve replacement (TAVR), RT HAND INDEX FINGER BONE CHIP REMOVED, RT WRIST(JAMMED) PT STATED THEY CUT THE BONE AND REALIGNED IT, colonoscopy, bilateral cataract removals/lens implants. Past Anesthesia/Blood Transfusion Reactions: No Reported Reaction Past Psychological History: No Psychological Hx Reported Smoking Status: Current every day smoker Past Alcohol Use History: None Reported Past Drug Use History: None Reported - Past Family History Father Family Medical History: Coronary Artery Disease (CAD) Additional Family Medical History / Comment(s): VASCULAR PROBLEMS/valve replacement. Mother Family Medical History: Coronary Artery Disease (CAD) Additional Family Medical History / Comment(s): VASCULAR PROBLEMS HAD PIG VALVE. General Exam - General Exam Comments Initial Comments: Constitutional: Pt appears well-developed and well-nourished. No distress. Head: Normocephalic and atraumatic. Eyes: EOM are normal. Neck: Normal range of motion. Neck supple. Cardiovascular: Normal rate, regular rhythm, S1 normal, S2 normal and normal heart sounds. Exam reveals no gallop and no friction rub. No murmur heard. Pulmonary/Chest: Effort normal and breath sounds normal. No tachypnea and no bradypnea. No respiratory distress. No wheezes or rales noted. Abdominal: Soft. Bowel sounds are normal. Pt exhibits no shifting dullness, no distension, no pulsatile liver, no fluid wave, no abdominal bruit and no ascites. There is no rigidity, no rebound, no guarding, no tenderness at McBurney's point and negative Alarcon's sign. There is no tenderness. Musculoskeletal: Normal range of motion. Neurological: Pt is alert and oriented to person, place, and time. No cranial nerve deficit. Skin: Skin is warm and dry. No rash noted. Pt is not diaphoretic. No erythema. No pallor. Psychiatric: Pt has a normal mood and affect. Pt behavior is normal. Thought content normal. Limitations: no limitations Course Vital Signs 01/05/19 01/05/19 01/05/19 20:57 21:01 22:01 Temperature 98.3 F Pulse Rate 77 68 67 Respiratory 18 20 20 Rate Blood Pressure 150/80 156/60 156/61 O2 Sat by Pulse 99 98 99 Oximetry Chest Pain MDM - MDM Laboratory studies showed that there was no significant leukocytosis and electrolytes were relatively within normal limits. From a cardiac standpoint, EKG had no significant ST depressions or elevations and patient was given aspirin as well as nitro by EMS and therefore these therapies were not given here in the emergency department. BNP was elevated at 3470 but there is no significant effusion noted on chest x-ray and d-dimer was performed and noted to be elevated 1.06. Therefore CT PE study was completed and negative for pulmonary embolism. However, patient has significant risk factors and because of this, patient will be placed in observation for continued evaluation and treatment.Explained all labs and diagnostic test results and that we will admit patient to hospital. Pt is agreeable to plan and case will be discussed with Dr. Camacho in the a.m. Disposition Clinical Impression: Elevated brain natriuretic peptide (BNP) level, Chest pain Disposition: ADMITTED IP TO THIS HOSP Condition: Fair Referrals: [facility],Clinic [Primary Care Provider] - 1-2 days Decision to Admit Reason: Admit from EC Decision Date: 01/06/19 Decision Time: 01:36
[2019-01-05 21:52] LABS: Anisocytosis Slight; Basophils % (A) 1 %; Eosinophils # (A) 0.5 k/uL (0-0.7); Eosinophils % (A) 8 %; HCT 30.5 % (39.0-53.0); Lymphocytes # (A) 0.8 k/uL (1.0-4.8); Lymphocytes % (A) 14 %; MCH 40.2 pg (25.0-35.0); MCHC 32.6 g/dL (31.0-37.0); Macrocytosis Marked; Mean Platelet Volume 6.7; Monocytes # (A) 0.3 k/uL (0-1.0); Monocytes % (A) 5 %; Neutrophils % (A) 70 %; Platelet Count 517 k/uL (150-450); RBC 2.47 m/uL (4.30-5.90); RDW 17.8 % (11.5-15.5); WBC 5.7 k/uL (3.8-10.6)
--- NOTE | 2019-01-05 21:52 | XR ---
EXAMINATION TYPE: XR chest 2V DATE OF EXAM: 01/05/2019 COMPARISON: 11/27/2018 HISTORY: Chest pain TECHNIQUE: Frontal and lateral views of the chest are obtained. FINDINGS: There is no heart failure nor confluent pneumonic infiltrate. There is atheromatous aorta. There are sternal wires. There is aortic valve surgery. IMPRESSION: No active crater pulmonary disease. No change.
[2019-01-05 21:56] LABS: MCV 123.5 fL (80.0-100.0)
[2019-01-05 22:02] LABS: INR 0.9 (<1.2); Partial Thromboplastin Time 23.1 sec (22.0-30.0)
[2019-01-05 22:06] LABS: Albumin 3.7 g/dL (3.5-5.0); Magnesium 1.9 mg/dL (1.6-2.3); Potassium 4.2 mmol/L (3.5-5.1); Total Bilirubin 0.3 mg/dL (0.2-1.3); Total Protein 6.3 g/dL (6.3-8.2)
[2019-01-05 22:24] LABS: Poikilocytosis (M) Present; Polychromasia Present
[2019-01-05 22:25] LABS: Toxic Granulation Present; Toxic Vacuolation Present
--- NOTE | 2019-01-06 00:26 | CT ---
EXAM: CT Angiography Chest With Intravenous Contrast CLINICAL HISTORY: ITS.REASON CT Reason: SOB TECHNIQUE: Axial computed tomographic angiography images of the chest with intravenous contrast using pulmonary embolism protocol. CTDI is 7.9 mGy and DLP is 340 mGy-cm. This CT exam was performed using one or more of the following dose reduction techniques: automated exposure control, adjustment of the mA and/or kV according to patient size, and/or use of iterative reconstruction technique. MIP reconstructed images were created and reviewed. COMPARISON: CT chest on 02/18/2016. FINDINGS: Lung parenchyma: Mild dependent atelectasis bilaterally. No focal consolidation. No nodule. Pleural space: Normal. No pleural effusion or pneumothorax. Mediastinum/matthew: Median sternotomy changes. No mass or lymphadenopathy. Heart: Aortic valve stent graft. Coronary artery and mitral annular calcifications. CABG changes. Mild cardiomegaly. No pericardial effusion. Vasculature: Normal. No pulmonary embolus. Aorta: Atherosclerotic changes. No aneurysm or dissection. Airways: Patent. Bones: Degenerative changes of the spine. Old left-sided rib fracture deformities. No bony lesion or acute fracture. Muscles: No mass. Subcutaneous tissues: Normal. Upper abdomen: Stomach is distended with ingested material, fluid, and gas. Atrophy of the pancreas. No acute inflammation. Nonspecific perinephric fat stranding bilaterally. Other: Small hiatal hernia. IMPRESSION: 1. No pulmonary embolus identified. 2. No aortic aneurysm or dissection. 3. No acute pulmonary parenchymal abnormality identified.
[2019-01-06] MEDS ORDERED: NITROGLYCERIN SL TABS 0.4 MG TAB SUBLINGUAL PRN (01:28)
[2019-01-06] MEDS ORDERED: MORPHINE SULFATE 4 MG/ML SYRINGE IV PRN (01:28)
[2019-01-06 02:43] LABS: Glucose,Whole Blood 128 mg/dL (75-99)
[2019-01-06 02:53] VITALS: BMI 28.3
[2019-01-06] MEDS ORDERED: HEPARIN SODIUM,PORCINE 5,000 UNIT/ML 1 ML VIAL IV PRN (05:06)
[2019-01-06] MEDS ORDERED: HEPARIN SODIUM,PORCINE 5,000 UNIT/ML 1 ML VIAL IV ONE (05:06)
[2019-01-06] MEDS: HEPARIN SOD,PORK IN 0.45% NACL 25,000 UNIT in 0.45% NACL 1 250ML.BAG IV SCH (05:33)
[2019-01-06 06:00] LABS: Anisocytosis Slight; Basophils % (A) 1 %; Eosinophils # (A) 0.5 k/uL (0-0.7); Eosinophils % (A) 9 %; HCT 28.7 % (39.0-53.0); HGB 8.9 gm/dL (13.0-17.5); Lymphocytes % (A) 19 %; MCH 38.2 pg (25.0-35.0); MCHC 31.1 g/dL (31.0-37.0); MCV 122.8 fL (80.0-100.0); Macrocytosis Marked; Mean Platelet Volume 6.8; Monocytes # (A) 0.3 k/uL (0-1.0); Monocytes % (A) 6 %; Neutrophils # (A) 3.1 k/uL (1.3-7.7); Neutrophils % (A) 62 %; Platelet Count 504 k/uL (150-450); RBC 2.33 m/uL (4.30-5.90); WBC 5.1 k/uL (3.8-10.6)
[2019-01-06 06:09] LABS: INR 0.9 (<1.2); Partial Thromboplastin Time 22.4 sec (22.0-30.0); Prothrombin Time 10.1 sec (9.0-12.0)
[2019-01-06 06:26] LABS: Glucose,Whole Blood 154 mg/dL (75-99)
[2019-01-06] MEDS ORDERED: ATORVASTATIN 20 MG TAB PO SCH (09:00)
[2019-01-06] MEDS ORDERED: METOPROLOL TARTRATE 12.5 MG TAB PO SCH (09:00)
[2019-01-06] MEDS: METOPROLOL TARTRATE 25 MG TAB PO SCH ×2 (12:24→20:35)
[2019-01-06] MEDS: ATORVASTATIN 80 MG TAB PO SCH (12:24)
[2019-01-06] MEDS: CLOPIDOGREL 75 MG TAB PO SCH (12:24)
[2019-01-06] MEDS: amLODIPine 10 MG TAB PO SCH (12:24)
--- NOTE | 2019-01-06 13:16 | ECHOF ---
Referral Reason:cp, nstemi MEASUREMENTS -------- HEIGHT: 165.1 cm WEIGHT: 77.1 kg BP: RVIDd: 3.3 cm (< 3.3) IVSd: 1.6 cm (0.6 - 1.1) LVIDd: 4.3 cm (3.9 - 5.3) LVPWd: 1.8 cm (0.6 - 1.1) IVSs: 2.1 cm LVIDs: 3.9 cm LVPWs: 1.6 cm LA Diam: 5.1 cm (2.7 - 3.8) LAESV Index (A-L): 37.15 ml/m MV EXCURSION: 10.412 mm (> 18.000) MV EF SLOPE: 20 mm/s (70 - 150) EPSS: 1.1 cm MV E Pawan: 0.77 m/s MV DecT: 311 ms MV A Pawan: 1.09 m/s MV E/A Ratio: 0.70 AV maxP.13 mmHg AV meanP.89 mmHg RAP: 5.00 mmHg RVSP: 40.42 mmHg FINDINGS -------- Undetermined rhythm. This was a technically adequate study. The left ventricular size is normal. There is moderate concentric left ventricular hypertrophy. O verall left ventricular systolic function is low-normal with, an EF between 50 - 55 %. The right ventricle is normal in size. The left atrium is moderately dilated. LA is moderately dilated 34-39 ml/m2 The right atrial size is normal. Peak/mean gradient across the Aortic Valve is 13.13mmHg / 5.89mmHg. Normally functioning bioprosthe tic valve. Mild mitral annular calcification present. Mild mitral regurgitation is present. Mild tricuspid regurgitation present. There is no evidence of pulmonary hypertension. The right v entricular systolic pressure, as measured by Doppler, is 40.42mmHg. Trace/mild (physiologic) pulmonic regurgitation. The aortic root size is normal. There is no pericardial effusion. CONCLUSIONS -------- 1. The left ventricular size is normal. 2. There is moderate concentric left ventricular hypertrophy. 3. Overall left ventricular systolic function is low-normal with, an EF between 50 - 55 %. 4. The right ventricle is normal in size. 5. The left atrium is moderately dilated. 6. LA is moderately dilated 34-39 ml/m2 7. The right atrial size is normal. 8. Peak/mean gradient across the Aortic Valve is 13.13mmHg / 5.89mmHg. 9. Normally functioning bioprosthetic valve. 10. Mild mitral annular calcification present. 11. Mild mitral regurgitation is present. 12. Mild tricuspid regurgitation present. 13. There is no evidence of pulmonary hypertension. 14. The right ventricular systolic pressure, as measured by Doppler, is 40.42mmHg. 15. Trace/mild (physiologic) pulmonic regurgitation. 16. The aortic root size is normal. 17. There is no pericardial effusion. SENIOR REVENUE ACCOUNTANT: Nerissa Moncada RDCS
--- NOTE | 2019-01-06 13:17 | P.CRDCN ---
History of Present Illness History of present illness: this is a pleasant 68-year-old male past medical history significant for coronary artery disease status post bypass grafting, aortic stenosis status post TAPVR, hypertension, dyslipidemia, diabetes mellitus, chronic anemia and multiple comorbid conditions. He follows in the office with Dr. Yin. We've been asked to see him in consultation for symptoms chest discomfort. He presented to the hospital yesterday after experiencing a heavy sensation in the midsternal region while he was sitting down watching television. He states the pain went straight through to his back and persisted for about 30 minutes. He denies associated shortness of breath, dizziness, nausea, vomiting or diaphoresis. He denies any symptoms of pain in the arm, neck or jaw. He verbalizes that this feels exactly how he felt in the past when he underwent stenting. In July 2018 he presented to the hospital with symptoms chest discomfort and was ruled in for an acute non-ST elevated myocardial infarction at that time he underwent successful angioplasty and stent placement to the ostial SVG to the OM1 and 2. He is seen and examined sitting in bed in no acute distress. He states his chest pain has resolved and he would like to go home. EKG obtained on arrival reveals sinus mechanism with PVCs, inferior Q waves noted and poor R-wave progression. There is minimal ST depression in the lateral leads. chest x-ray is negative for an acute cardiopulmonary process. laboratory data reviewed, WBC 5.1, hemoglobin 8.9, platelets 504, d-dimer 1.06, sodium 137, potassium 4.2. creatinine 1.19, troponin 0.019, 0.499 and 0.584, NTproBNP 3470. current cardiac medications according to the office note from Dr. Bliss is amlodipine 10 mg daily, atorvastatin 80 mg daily, Plavix 75 mg daily, Lopressor 25 mg twice a day and aspirin 81 mg daily. heaviness in the chest in the mid-sternal region last night while sitting. pain went through to the back, described as heavy. no sob, dizziness, nausea, vomiting or diaphoresis. At the time of my exam: CONSTITUTIONAL: Denies fever. Denies chills. EYES: Denies blurred vision. Denies vision changes. Denies eye pain. EARS, NOSE, MOUTH & THROAT: Denies headache. Denies sore throat. Denies ear pain. CARDIOVASCULAR: Denies chest pain. Denies shortness of breath. Denies orthopnea. Denies PND. Denies palpitations. RESPIRATORY: Denies cough. GASTROINTESTINAL: Denies abdominal pain. Denies diarrhea. Denies constipation. Denies nausea. Denies vomiting. MUSCULOSKELETAL: Denies myalgias. INTEGUMENTARY: Denies pruitis. Denies rash. NEUROLOGIC: Denies numbness. Denies tingling. Denies weakness. PSYCHIATRIC: Denies anxiety. Denies depression. ENDOCRINE: Denies fatigue. Denies weight change. Denies polydipsia. Denies polyurina. GENITOURINARY: Denies burning, hematuria or urgency with micturation. HEMATOLOGIC: Denies history of anemia. Denies bleeding. Blood pressure 166/66 heart rate 64 afebrile maintaining oxygen saturation on nasal cannula GENERAL: This is a 68-year-old male in no apparent distress at the time of my examination. HEENT: Head is atraumatic, normocephalic. Pupils are equal, round. Sclerae anicteric. Conjunctivae are clear. Mucous membranes of the mouth are moist. Neck is supple. There is no jugular venous distention. No carotid bruit is heard. LUNGS: Clear to auscultation no wheezes, rales or rhonchi. No chest wall tenderness is noted on palpation or with deep breathing. HEART: Regular rate and rhythm with systolic ejection murmur at the base, no rubs or gallops. S1 and S2 heard. ABDOMEN: Soft, nontender. Bowel sounds are heard. No organomegaly noted. EXTREMITIES: No evidence of peripheral edema and no calf tenderness noted. VASCULAR: Radial and dorsalis pedis pulses palpated, no evidence of clubbing. NEUROLOGIC: Patient is awake, alert and oriented x3. ASSESSMENT Non-ST elevated myocardial infarction, currently chest pain-free. History of coronary artery disease s/p bypass grafting History of aortic valve repair with TAVR Hypertension Dyslipidemia Diabetes mellitus Chronic anemia PLAN Obtain 2D echocardiogram and doppler study to assess cardiac structure and function. Continue heparin infusion and proceed with cardiac catheterization Tuesday morning. I have discussed the risks, benefits and alternative therapies for the above-mentioned procedure and for both sedation/analgesia as well as necessary blood product administration, if indicated, as they pertain to this patient. The patient has indicated understanding and acceptance of the risks and procedures discussed. Continue amlodipine, atorvastatin, Plavix and metoprolol at home doses. Apply Nitropaste for chest pain. Further recommendations to follow based upon clinical course. Thank you kindly for this consultation. Nurse Practitioner note has been reviewed, I agree with a documented findings and plan of care. Patient was seen and examined. Past Medical History Past Medical History: CVA/TIA, Diabetes Mellitus, Hyperlipidemia, Hypertension, Myocardial Infarction ([place]), Neurologic Disorder, Pneumonia, Seizure Disorder, Thyroid Disorder Additional Past Medical History / Comment(s): Coronary artery disease, four- vessel bypass surgery, aortic valve replacement TAVR, prostate cancer, previous CVA, diabetes mellitus, hypertension, hyperlipidemia, chronic anemia, chronic smoker, previous history of agent orange exposure, there is history of skin disease of an unknown type, hypothyroidism, iron deficiency anemia, peripheral vascular disease, hematologic disease of an unknown type at this point in time and the patient has been seen by Dr. hidalgo and the patient has been maintained on Hydrea, peripheral neuropathy. 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 Last Myocardial Infarction Date:: 02/17/2016 History of Any Multi-Drug Resistant Organisms: None Reported Past Surgical History: Coronary Bypass/CABG, Heart Catheterization, Orthopedic Surgery Additional Past Surgical History / Comment(s): 02/19/16 cardiac cath, 02/24/16 CABG quadrupal with aortic valve replacement (TAVR), RT HAND INDEX FINGER BONE CHIP REMOVED, RT WRIST(JAMMED) PT STATED THEY CUT THE BONE AND REALIGNED IT, colonoscopy, bilateral cataract removals/lens implants. Past Anesthesia/Blood Transfusion Reactions: No Reported Reaction Past Psychological History: No Psychological Hx Reported Additional Psychological History / Comment(s): PT LIVES WITH HIS USES A CANE OR WALKER WHEN UP . PT RETIRED-WORKED IN [employer] AND SERVED IN THE [id number]. He does not drive but spouse does. He has no home care. Smoking Status: Current every day smoker Past Alcohol Use History: None Reported Additional Past Alcohol Use History / Comment(s): STARTED SMOKING AT AGE 18 SMOKED 1 PPD BUT STATES HE QUIT 02/2016, USED TO DRINK DAILY (18-24 PACK OF BEER PER DAY), has not drank or smoked since 02/17/16. Past Drug Use History: None Reported - Past Family History Father Family Medical History: Coronary Artery Disease (CAD) Additional Family Medical History / Comment(s): VASCULAR PROBLEMS/valve replacement. Mother Family Medical History: Coronary Artery Disease (CAD) Additional Family Medical History / Comment(s): VASCULAR PROBLEMS HAD PIG VALVE. Medications and Allergies Home Medications Medication Instructions Recorded Confirmed Type amLODIPine BESYLATE [Norvasc] 10 mg PO DAILY 02/17/16 07/28/18 History Clopidogrel [Plavix] 75 mg PO DAILY 03/11/16 07/28/18 History Ferrous Sulfate [Iron (65 MG 325 mg PO DAILY 03/11/16 07/28/18 History Elemental)] Levothyroxine Sodium [Synthroid] 125 mcg PO DAILY 06/14/18 07/28/18 History Atorvastatin [Lipitor] 20 mg PO HS 07/04/18 07/28/18 History Pregabalin [Lyrica] 200 mg PO BID 07/04/18 07/28/18 History Venlafaxine HCl [Effexor XR] 75 mg PO HS 07/04/18 07/28/18 History Aspirin 81 mg PO DAILY chew 07/13/18 07/28/18 Rx Furosemide [Lasix] 40 mg PO DAILY #1 tablet 07/13/18 07/28/18 Rx INSULIN LISPRO (HumaLOG) [humaLOG] 0 unit SQ ACHS #1 vial 07/13/18 07/28/18 Rx Nicotine 14Mg/24Hr Patch [Habitrol] 1 patch TRANSDERM DAILY patch 07/13/18 Rx Pantoprazole [Protonix] 40 mg PO AC-BRKFST tablet. 07/13/18 07/28/18 Rx hydrALAZINE HCL [Apresoline] 25 mg PO TID tab 07/13/18 07/28/18 Rx Acetaminophen Tab [Tylenol] 650 mg PO Q6HR PRN tab 08/03/18 Rx Amoxic-Pot Clav 875-125Mg 1 each PO Q12HR 3 Days #6 tab 08/03/18 Rx [Augmentin 875-125] Carvedilol [Coreg] 6.25 mg PO BID-W/MEALS #60 tab 08/03/18 Rx Insulin Detemir (Levemir) [Levemir] 20 unit SQ DAILY syr 08/03/18 Rx Isosorbide Mononitrate ER [Imdur] 60 mg PO DAILY #30 tab.er.24h 08/03/18 Rx Metoprolol Tartrate [Lopressor] 50 mg PO BID #60 tab 08/03/18 Rx Nitroglycerin Sl Tabs [Nitrostat] 0.4 mg SUBLINGUAL Q5M PRN #25 tab 08/03/18 Rx Polyethylene Glycol 3350 [Miralax] 17 gm PO DAILY #7 packet 11/27/18 Rx Allergies Allergy/AdvReac Type Severity Reaction Status Date / Time No Known Allergies Allergy Verified 01/05/19 21:16 Physical Exam Vitals: Vital Signs Temp Pulse Pulse Resp BP BP Pulse Ox 01/06/19 08:36 98.0 F 64 16 166/66 99 01/06/19 06:54 65 18 181/65 97 01/06/19 03:58 62 14 01/06/19 02:48 98.4 F 58 L 14 136/57 100 01/06/19 01:48 70 18 157/62 97 01/05/19 22:01 67 20 156/61 99 01/05/19 21:01 68 20 156/60 98 01/05/19 20:57 98.3 F 77 18 150/80 99 Intake and Output 01/05/19 01/06/19 01/06/19 22:59 06:59 14:59 Output Total 200 Balance -200 Output: Urine 200 Other: Weight 77.383 kg Results 01/06/19 05:36 01/05/19 21:00 Cardiac Enzymes 01/05/19 01/05/19 01/06/19 Range/Units 21:00 21:00 03:12 AST 15 L (17-59) U/L Troponin I 0.019 0.499 H* (0.000-0.034) ng/mL Coagulation 01/05/19 01/06/19 Range/Units 21:00 05:36 PT 10.0 10.1 (9.0-12.0) sec APTT 23.1 22.4 (22.0-30.0) sec CBC 01/05/19 01/06/19 Range/Units 21:00 05:36 WBC 5.7 5.1 (3.8-10.6) k/uL RBC 2.47 L 2.33 L (4.30-5.90) m/uL Hgb 10.0 L 8.9 L (13.0-17.5) gm/dL Hct 30.5 L 28.7 L (39.0-53.0) % Plt Count 517 H 504 H (150-450) k/uL Comprehensive Metabolic Panel 01/05/19 Range/Units 21:00 Sodium 137 (137-145) mmol/L Potassium 4.2 (3.5-5.1) mmol/L Chloride 110 H (98-107) mmol/L Carbon Dioxide 18 L (22-30) mmol/L BUN 23 H (9-20) mg/dL Creatinine 1.19 (0.66-1.25) mg/dL Glucose 292 H (74-99) mg/dL Calcium 10.0 (8.4-10.2) mg/dL AST 15 L (17-59) U/L ALT 25 (21-72) U/L Alkaline Phosphatase 143 H (38-126) U/L Total Protein 6.3 (6.3-8.2) g/dL Albumin 3.7 (3.5-5.0) g/dL Current Medications Generic Name Dose Route Start Last Admin Trade Name Freq PRN Reason Stop Dose Admin Aspirin 325 mg 01/07/19 09:00 Aspirin PO DAILY [facility] Atorvastatin Calcium 20 mg 01/06/19 09:00 Lipitor PO DAILY [facility] Heparin Sodium (Porcine) 0 unit 01/06/19 05:06 Heparin IV PER PROTOCOL PRN Low PTT Protocol Heparin Sodium/Sodium Chloride 250 mls @ 9.28 mls/hr 01/06/19 05:15 01/06/19 05:33 25,000 unit/ Sodium Chloride IV 12 units/kg/hr .Q24H MAICO 9.28 mls/hr Administration Protocol 12 UNITS/KG/HR Metoprolol Tartrate 12.5 mg 01/06/19 09:00 Lopressor PO BID [facility] Morphine Sulfate 4 mg 01/06/19 01:28 Morphine Sulfate (Inj) IV Q5M PRN Chest Pain Nitroglycerin 0.4 mg 01/06/19 01:28 Nitrostat SUBLINGUAL Q5M PRN Chest Pain Intake and Output 01/05/19 01/06/19 01/06/19 22:59 06:59 14:59 Output Total 200 Balance -200 Output: Urine 200 Other: Weight 77.383 kg 01/06/19 05:36 01/05/19 21:00
--- NOTE | 2019-01-06 16:13 | P.HPIM ---
History of Present Illness H&P Date: 01/06/19 68-year-old male past medical history significant for coronary artery disease status post bypass grafting, aortic stenosis status post TAPVR, hypertension, dyslipidemia, diabetes mellitus, chronic anemia and multiple comorbid conditions. He follows in the office with Dr. Yin. We've been asked to see him in consultation for symptoms chest discomfort. He presented to the hospital yesterday after experiencing a heavy sensation in the midsternal region while he was sitting down watching television. He states the pain went straight through to his back and persisted for about 30 minutes. He denies associated shortness of breath, dizziness, nausea, vomiting or diaphoresis. He denies any symptoms of pain in the arm, neck or jaw. He verbalizes that this feels exactly how he felt in the past when he underwent stenting. In July 2018 he presented to the hospital with symptoms chest discomfort and was ruled in for an acute non-ST elevated myocardial infarction at that time he underwent successful angioplasty and stent placement to the ostial SVG to the OM1 and 2. He is seen and examined sitting in bed in no acute distress. He states his chest pain has resolved and he would like to go home. EKG obtained on arrival reveals sinus mechanism with PVCs, inferior Q waves noted and poor R-wave progression. There is minimal ST depression in the lateral leads. chest x-ray is negative for an acute cardiopulmonary process. laboratory data reviewed, WBC 5.1, hemoglobin 8.9, platelets 504, d-dimer 1.06, sodium 137, potassium 4.2. creatinine 1.19, troponin 0.019, 0.499 and 0.584, NTproBNP 3470. current cardiac medications according to the office note from Dr. Hazel is amlodipine 10 mg daily, atorvastatin 80 mg daily, Plavix 75 mg daily, Lopressor 25 mg twice a day and aspirin 81 mg daily. heaviness in the chest in the mid-sternal region last night while sitting. pain went through to the back, described as heavy. no sob, dizziness, nausea, vomiting or diaphoresis. Review of Systems CONSTITUTIONAL: Denies fever. Denies chills. EYES: Denies blurred vision. Denies vision changes. Denies eye pain. EARS, NOSE, MOUTH & THROAT: Denies headache. Denies sore throat. Denies ear pain. CARDIOVASCULAR: Denies chest pain. Denies shortness of breath. Denies orthopnea. Denies PND. Denies palpitations. RESPIRATORY: Denies cough. GASTROINTESTINAL: Denies abdominal pain. Denies diarrhea. Denies constipation. Denies nausea. Denies vomiting. MUSCULOSKELETAL: Denies myalgias. INTEGUMENTARY: Denies pruitis. Denies rash. NEUROLOGIC: Denies numbness. Denies tingling. Denies weakness. PSYCHIATRIC: Denies anxiety. Denies depression. ENDOCRINE: Denies fatigue. Denies weight change. Denies polydipsia. Denies polyurina. GENITOURINARY: Denies burning, hematuria or urgency with micturation. HEMATOLOGIC: Denies history of anemia. Denies bleeding. Past Medical History Past Medical History: CVA/TIA, Diabetes Mellitus, Hyperlipidemia, Hypertension, Myocardial Infarction ([place]), Neurologic Disorder, Pneumonia, Seizure Disorder, Thyroid Disorder Additional Past Medical History / Comment(s): Coronary artery disease, four- vessel bypass surgery, aortic valve replacement TAVR, prostate cancer, previous CVA, diabetes mellitus, hypertension, hyperlipidemia, chronic anemia, chronic smoker, previous history of agent orange exposure, there is history of skin disease of an unknown type, hypothyroidism, iron deficiency anemia, peripheral vascular disease, hematologic disease of an unknown type at this point in time and the patient has been seen by Dr. hidalgo and the patient has been maintained on Hydrea, peripheral neuropathy. 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 Last Myocardial Infarction Date:: 02/17/2016 History of Any Multi-Drug Resistant Organisms: None Reported Past Surgical History: Coronary Bypass/CABG, Heart Catheterization, Orthopedic Surgery Additional Past Surgical History / Comment(s): 02/19/16 cardiac cath, 02/24/16 CABG quadrupal with aortic valve replacement (TAVR), RT HAND INDEX FINGER BONE CHIP REMOVED, RT WRIST(JAMMED) PT STATED THEY CUT THE BONE AND REALIGNED IT, colonoscopy, bilateral cataract removals/lens implants. Past Anesthesia/Blood Transfusion Reactions: No Reported Reaction Past Psychological History: No Psychological Hx Reported Additional Psychological History / Comment(s): PT LIVES WITH HIS USES A CANE OR WALKER WHEN UP . PT RETIRED-WORKED IN [employer] AND SERVED IN THE [id number]. He does not drive but spouse does. He has no home care. Smoking Status: Current every day smoker Past Alcohol Use History: None Reported Additional Past Alcohol Use History / Comment(s): STARTED SMOKING AT AGE 18 SMOKED 1 PPD BUT STATES HE QUIT 02/2016, USED TO DRINK DAILY (18-24 PACK OF BEER PER DAY), has not drank or smoked since 02/17/16. Past Drug Use History: None Reported - Past Family History Father Family Medical History: Coronary Artery Disease (CAD) Additional Family Medical History / Comment(s): VASCULAR PROBLEMS/valve replacement. Mother Family Medical History: Coronary Artery Disease (CAD) Additional Family Medical History / Comment(s): VASCULAR PROBLEMS HAD PIG VALVE. Medications and Allergies Home Medications Medication Instructions Recorded Confirmed Type amLODIPine BESYLATE [Norvasc] 10 mg PO DAILY 02/17/16 07/28/18 History Clopidogrel [Plavix] 75 mg PO DAILY 03/11/16 07/28/18 History Ferrous Sulfate [Iron (65 MG 325 mg PO DAILY 03/11/16 07/28/18 History Elemental)] Levothyroxine Sodium [Synthroid] 125 mcg PO DAILY 06/14/18 07/28/18 History Atorvastatin [Lipitor] 20 mg PO HS 07/04/18 07/28/18 History Pregabalin [Lyrica] 200 mg PO BID 07/04/18 07/28/18 History Venlafaxine HCl [Effexor XR] 75 mg PO HS 07/04/18 07/28/18 History Aspirin 81 mg PO DAILY chew 07/13/18 07/28/18 Rx Furosemide [Lasix] 40 mg PO DAILY #1 tablet 07/13/18 07/28/18 Rx INSULIN LISPRO (HumaLOG) [humaLOG] 0 unit SQ ACHS #1 vial 07/13/18 07/28/18 Rx Nicotine 14Mg/24Hr Patch [Habitrol] 1 patch TRANSDERM DAILY patch 07/13/18 Rx Pantoprazole [Protonix] 40 mg PO AC-BRKFST tablet. 07/13/18 07/28/18 Rx hydrALAZINE HCL [Apresoline] 25 mg PO TID tab 07/13/18 07/28/18 Rx Acetaminophen Tab [Tylenol] 650 mg PO Q6HR PRN tab 08/03/18 Rx Amoxic-Pot Clav 875-125Mg 1 each PO Q12HR 3 Days #6 tab 08/03/18 Rx [Augmentin 875-125] Carvedilol [Coreg] 6.25 mg PO BID-W/MEALS #60 tab 08/03/18 Rx Insulin Detemir (Levemir) [Levemir] 20 unit SQ DAILY syr 08/03/18 Rx Isosorbide Mononitrate ER [Imdur] 60 mg PO DAILY #30 tab.er.24h 08/03/18 Rx Metoprolol Tartrate [Lopressor] 50 mg PO BID #60 tab 08/03/18 Rx Nitroglycerin Sl Tabs [Nitrostat] 0.4 mg SUBLINGUAL Q5M PRN #25 tab 08/03/18 Rx Polyethylene Glycol 3350 [Miralax] 17 gm PO DAILY #7 packet 11/27/18 Rx Allergies Allergy/AdvReac Type Severity Reaction Status Date / Time No Known Allergies Allergy Verified 01/06/19 16:06 Physical Exam Vitals: Vital Signs Temp Pulse Pulse Resp BP BP Pulse Ox 01/06/19 08:36 98.0 F 64 16 166/66 99 01/06/19 06:54 65 18 181/65 97 01/06/19 03:58 62 14 01/06/19 02:48 98.4 F 58 L 14 136/57 100 01/06/19 01:48 70 18 157/62 97 01/05/19 22:01 67 20 156/61 99 01/05/19 21:01 68 20 156/60 98 01/05/19 20:57 98.3 F 77 18 150/80 99 Intake and Output 01/05/19 01/06/19 01/06/19 22:59 06:59 14:59 Output Total 200 Balance -200 Output: Urine 200 Other: Weight 77.383 kg GENERAL: This is a 68-year-old male in no apparent distress at the time of my examination. HEENT: Head is atraumatic, normocephalic. Pupils are equal, round. Sclerae anicteric. Conjunctivae are clear. Mucous membranes of the mouth are moist. Neck is supple. There is no jugular venous distention. No carotid bruit is heard. LUNGS: Clear to auscultation no wheezes, rales or rhonchi. No chest wall tenderness is noted on palpation or with deep breathing. HEART: Regular rate and rhythm with systolic ejection murmur at the base, no rubs or gallops. S1 and S2 heard. ABDOMEN: Soft, nontender. Bowel sounds are heard. No organomegaly noted. EXTREMITIES: No evidence of peripheral edema and no calf tenderness noted. VASCULAR: Radial and dorsalis pedis pulses palpated, no evidence of clubbing. NEUROLOGIC: Patient is awake, alert and oriented x3. Results CBC & Chem 7: 01/06/19 05:36 01/05/19 21:00 Labs: Abnormal Lab Results - Last 24 Hours (Table) 01/05/19 01/05/19 01/05/19 Range/Units 21:00 21:00 21:12 RBC 2.47 L (4.30-5.90) m/uL Hgb 10.0 L (13.0-17.5) gm/dL Hct 30.5 L (39.0-53.0) % MCV 123.5 H D (80.0-100.0) fL MCH 40.2 H (25.0-35.0) pg RDW 17.8 H (11.5-15.5) % Plt Count 517 H (150-450) k/uL Lymphocytes # 0.8 L (1.0-4.8) k/uL APTT (22.0-30.0) sec D-Dimer 1.06 H (<0.60) mg/L FEU Chloride 110 H (98-107) mmol/L Carbon Dioxide 18 L (22-30) mmol/L BUN 23 H (9-20) mg/dL Glucose 292 H (74-99) mg/dL POC Glucose (mg/dL) (75-99) mg/dL AST 15 L (17-59) U/L Alkaline Phosphatase 143 H (38-126) U/L Troponin I (0.000-0.034) ng/mL 01/06/19 01/06/19 01/06/19 Range/Units 02:42 03:12 05:36 RBC 2.33 L (4.30-5.90) m/uL Hgb 8.9 L (13.0-17.5) gm/dL Hct 28.7 L (39.0-53.0) % MCV 122.8 H (80.0-100.0) fL MCH 38.2 H (25.0-35.0) pg RDW 18.0 H (11.5-15.5) % Plt Count 504 H (150-450) k/uL Lymphocytes # (1.0-4.8) k/uL APTT (22.0-30.0) sec D-Dimer (<0.60) mg/L FEU Chloride (98-107) mmol/L Carbon Dioxide (22-30) mmol/L BUN (9-20) mg/dL Glucose (74-99) mg/dL POC Glucose (mg/dL) 128 H (75-99) mg/dL AST (17-59) U/L Alkaline Phosphatase (38-126) U/L Troponin I 0.499 H* (0.000-0.034) ng/mL 01/06/19 01/06/19 01/06/19 Range/Units 06:23 09:01 10:56 RBC (4.30-5.90) m/uL Hgb (13.0-17.5) gm/dL Hct (39.0-53.0) % MCV (80.0-100.0) fL MCH (25.0-35.0) pg RDW (11.5-15.5) % Plt Count (150-450) k/uL Lymphocytes # (1.0-4.8) k/uL APTT 36.8 H (22.0-30.0) sec D-Dimer (<0.60) mg/L FEU Chloride (98-107) mmol/L Carbon Dioxide (22-30) mmol/L BUN (9-20) mg/dL Glucose (74-99) mg/dL POC Glucose (mg/dL) 154 H (75-99) mg/dL AST (17-59) U/L Alkaline Phosphatase (38-126) U/L Troponin I 0.584 H* (0.000-0.034) ng/mL Thrombosis Risk Factor Assmnt - Choose All That Apply Any of the Below Risk Factors Present?: No Other Risk Factors: Yes Each Risk Factor Represents 2 Points: Age 61-74 years Other congenital or acquired thrombophilia - If yes, enter type in comment: No Thrombosis Risk Factor Assessment Total Risk Factor Score: 2 Thrombosis Risk Factor Assessment Level: Low Risk Assessment and Plan Assessment: 1. Non-ST elevated myocardial infarction, currently chest pain-free. - Patient remains on IV heparin drip per protocol - 2-D echo with Doppler ordered for left ventricular function - Cardiology recommended cardiac catheterization on Tuesday - Patient remains on aspirin, statins, metoprolol and Plavix - Started on Nitropaste for chest pain 2. History of coronary artery disease s/p bypass grafting; workup was about 3. History of aortic valve repair with TAVR 4. Hypertension; stable on home dose of beta blockers and amlodipine 5. Dyslipidemia; Lipitor 20 mg by mouth daily at bedtime 6. Diabetes mellitus; Levemir 20 units subcu daily at bedtime - Monitor Accu-Cheks every before meals and at bedtime with insulin sliding scale 7. Chronic anemia; stable at baseline; continue to monitor 8. DVT prophylaxis; IV heparin CODE STATUS; full code
[2019-01-06] MEDS: NITROGLYCERIN OINT 1 INCH/GM PACKET TOPICAL SCH ×2 (17:45→17:52)
[2019-01-07] MEDS: NITROGLYCERIN OINT 1 INCH/GM PACKET TOPICAL SCH ×5 (00:30→23:45)
[2019-01-07] MEDS: HEPARIN SOD,PORK IN 0.45% NACL 25,000 UNIT in 0.45% NACL 1 250ML.BAG IV SCH (05:28)
[2019-01-07 06:44] LABS: Anisocytosis Slight; Basophils % (A) 1 %; Eosinophils # (A) 0.4 k/uL (0-0.7); Eosinophils % (A) 8 %; HCT 33.1 % (39.0-53.0); HGB 10.4 gm/dL (13.0-17.5); Lymphocytes % (A) 21 %; MCH 38.6 pg (25.0-35.0); MCHC 31.4 g/dL (31.0-37.0); Macrocytosis Marked; Mean Platelet Volume 7.1; Monocytes # (A) 0.3 k/uL (0-1.0); Monocytes % (A) 6 %; Neutrophils # (A) 2.9 k/uL (1.3-7.7); Neutrophils % (A) 61 %; Platelet Count 484 k/uL (150-450); RBC 2.69 m/uL (4.30-5.90); RDW 17.6 % (11.5-15.5); WBC 4.7 k/uL (3.8-10.6)
[2019-01-07 07:02] LABS: Anion Gap 5 mmol/L; Blood Urea Nitrogen 16 mg/dL (9-20); Calcium 9.1 mg/dL (8.4-10.2); Carbon Dioxide 22 mmol/L (22-30); Chloride 115 mmol/L (98-107); Cholesterol 106 mg/dL (<200); Glucose 155 mg/dL (74-99); HDL Cholesterol 29 mg/dL (40-60); LDL Cholesterol,Calculated 40 mg/dL (0-99); Potassium 4.3 mmol/L (3.5-5.1); Sodium 142 mmol/L (137-145); Triglycerides 184 mg/dL (<150)
[2019-01-07] MEDS ORDERED: ASPIRIN 325 MG TAB PO SCH (09:00)
[2019-01-07] MEDS: ATORVASTATIN 80 MG TAB PO SCH (09:15)
[2019-01-07] MEDS: CLOPIDOGREL 75 MG TAB PO SCH (09:15)
[2019-01-07] MEDS: METOPROLOL TARTRATE 25 MG TAB PO SCH ×2 (09:15→21:13)
[2019-01-07] MEDS: amLODIPine 10 MG TAB PO SCH (09:15)
[2019-01-07] MEDS ORDERED: SODIUM CHLORIDE 0.9% 1,000 ML in EMPTY BAG 1 BAG IV ONE (12:25)
[2019-01-07] MEDS ORDERED: NITROGLYCERIN SL TABS 0.4 MG TAB SUBLINGUAL PRN (12:25)
[2019-01-07] MEDS ORDERED: ALPRAZolam 0.25 MG TAB PO PRN (12:25)
--- NOTE | 2019-01-07 12:52 | P.PN ---
Subjective Progress Note Date: 01/07/19 this is a pleasant 68-year-old male past medical history significant for coronary artery disease status post bypass grafting, aortic stenosis status post TAVR, hypertension, dyslipidemia, diabetes mellitus, chronic anemia and multiple comorbid conditions. He follows in the office with Dr. Yin. We've been asked to see him in consultation for symptoms chest discomfort. Patient ruled in for a non-ST elevation [place]. He was seen in consultation yesterday, recommended to undergo cardiac catheterization by Dr. Yin tomorrow. He was seen and examined this morning sitting up in the chair at bedside. He denies any chest pain in his breathing overall has been stable. Blood pressure earlier this morning 186/70, subsequent blood pressure 190/80. Objective - Vital Signs Vital signs: Vital Signs Temp 98.0 F 01/07/19 08:55 Pulse 65 01/07/19 08:55 Resp 18 01/07/19 08:55 BP 186/74 01/07/19 08:55 Pulse Ox 100 01/07/19 08:55 Intake & Output 01/06/19 01/07/19 01/07/19 18:59 06:59 18:59 Intake Total 308.053 181.947 120 Output Total 850 1200 Balance -541.947 -1018.053 120 Weight 77.4 kg Intake: Intake, IV Titration 68.053 181.947 Amount Heparin Sod,Pork in 0.45% 68.053 181.947 NaCl 25,000 unit In 0.45 % NaCl 1 250ml.bag @ 12 UNITS/KG/HR 9.28 mls/hr IV .Q24H [facility] Rx#: [id number] Oral 240 120 Output: Urine 850 1200 Other: # Voids 1 1 1 - Exam PHYSICAL EXAMINATION: GENERAL: 68-year-old gentleman in no acute distress at the time of my examination HEENT: Head is atraumatic, normocephalic. Pupils equal, round. Sclera anicteric. Conjunctiva are clear. Mucous membranes of the mouth are moist. Neck is supple. There is no elevated jugular venous pressure no carotid] bruit is heard. HEART EXAMINATION: Heart S1 S2 1 systolic ejection murmur is heard. CHEST EXAMINATION: Lungs are clear to auscultation and precussion. No chest wall tenderness is noted on palpation or with deep breathing. ABDOMEN: Soft, nontender. Bowel sounds are heard. No organomegaly noted. EXTREMITIES: 2+ peripheral pulses with no evidence of peripheral edema and no calf tenderness noted. NEUROLOGIC patient is awake, alert and oriented 3 . . - Labs CBC & Chem 7: 01/07/19 05:54 01/07/19 05:54 Labs: Abnormal Lab Results - Last 24 Hours (Table) 01/06/19 01/07/19 01/07/19 Range/Units 19:14 05:54 05:54 RBC 2.69 L (4.30-5.90) m/uL Hgb 10.4 L (13.0-17.5) gm/dL Hct 33.1 L (39.0-53.0) % MCV 123.0 H (80.0-100.0) fL MCH 38.6 H (25.0-35.0) pg RDW 17.6 H (11.5-15.5) % Plt Count 484 H (150-450) k/uL APTT 56.8 H (22.0-30.0) sec Chloride 115 H (98-107) mmol/L Glucose 155 H (74-99) mg/dL Triglycerides 184 H (<150) mg/dL HDL Cholesterol 29 L (40-60) mg/dL 01/07/19 Range/Units 05:54 RBC (4.30-5.90) m/uL Hgb (13.0-17.5) gm/dL Hct (39.0-53.0) % MCV (80.0-100.0) fL MCH (25.0-35.0) pg RDW (11.5-15.5) % Plt Count (150-450) k/uL APTT 49.9 H (22.0-30.0) sec Chloride (98-107) mmol/L Glucose (74-99) mg/dL Triglycerides (<150) mg/dL HDL Cholesterol (40-60) mg/dL Assessment and Plan Plan: Assessment and plan #1 non-ST elevation [place] #2 history of coronary artery disease with prior bypass surgery #3 history of aortic valve repair with TAVR #4 hypertension #5 hyperlipidemia #6 diabetes #7 chronic anemia Plan Echo cardiac gram with Doppler study will be obtained tomorrow, we will add losartan to his medication regime for more optimal blood pressure control. Patient is scheduled morning undergo cardiac catheterization, the risks and benefits were explained to him in detail and he is willing to proceed. DNP note has been reviewed, I agree with a documented findings and plan of care. Patient was seen and examined.
[2019-01-07] MEDS: LOSARTAN 50 MG TAB PO SCH (13:09)
[2019-01-07] MEDS: cloNIDine HCL 0.1 MG TAB PO PRN (18:30)
[2019-01-08] MEDS: HEPARIN SOD,PORK IN 0.45% NACL 25,000 UNIT in 0.45% NACL 1 250ML.BAG IV SCH (04:25)
[2019-01-08] MEDS ORDERED: ASPIRIN 325 MG TAB PO ONE (06:00)
[2019-01-08] MEDS ORDERED: ATORVASTATIN 80 MG TAB PO ONE (06:00)
[2019-01-08] MEDS: NITROGLYCERIN OINT 1 INCH/GM PACKET TOPICAL SCH ×3 (06:06→17:34)
[2019-01-08 06:25] LABS: Glucose,Whole Blood 155 mg/dL (75-99)
[2019-01-08 06:35] LABS: Anisocytosis Slight; Basophils % (A) 1 %; Eosinophils # (A) 0.5 k/uL (0-0.7); Eosinophils % (A) 10 %; HCT 26.6 % (39.0-53.0); Lymphocytes # (A) 1.2 k/uL (1.0-4.8); Lymphocytes % (A) 24 %; MCH 39.1 pg (25.0-35.0); MCHC 32.4 g/dL (31.0-37.0); Macrocytosis Marked; Mean Platelet Volume 6.6; Monocytes # (A) 0.3 k/uL (0-1.0); Monocytes % (A) 5 %; Neutrophils # (A) 2.9 k/uL (1.3-7.7); Neutrophils % (A) 58 %; Platelet Count 511 k/uL (150-450); RBC 2.21 m/uL (4.30-5.90); RDW 17.3 % (11.5-15.5); WBC 4.9 k/uL (3.8-10.6)
[2019-01-08 06:38] LABS: HGB 8.6 gm/dL (13.0-17.5); MCV 120.4 fL (80.0-100.0)
[2019-01-08 06:41] LABS: INR 0.9 (<1.2)
[2019-01-08] MEDS: CLOPIDOGREL 75 MG TAB PO SCH (09:24)
[2019-01-08] MEDS: ALPRAZolam 0.5 MG TAB PO PRN ×2 (09:24→16:15)
[2019-01-08] MEDS: amLODIPine 10 MG TAB PO SCH (09:24)
[2019-01-08] MEDS: METOPROLOL TARTRATE 25 MG TAB PO SCH ×2 (09:24→20:13)
[2019-01-08] MEDS: LOSARTAN 50 MG TAB PO SCH (09:24)
--- NOTE | 2019-01-08 11:00 | P.PN ---
Subjective Progress Note Date: 01/07/19 Principal diagnosis: Non-ST elevation [place] 68-year-old male past medical history significant for coronary artery disease status post bypass grafting, aortic stenosis status post TAPVR, hypertension, dyslipidemia, diabetes mellitus, chronic anemia and multiple comorbid conditions. He follows in the office with Dr. Yin. He presented to the hospital yesterday after experiencing a heavy sensation in the midsternal region while he was sitting down watching television. He states the pain went straight through to his back and persisted for about 30 minutes. He denies associated shortness of breath, dizziness, nausea, vomiting or diaphoresis. He denies any symptoms of pain in the arm, neck or jaw. He verbalizes that this feels exactly how he felt in the past when he underwent stenting. Patient is admitted to the hospital with non-ST elevation [place] and remains on IV heparin drip Objective - Vital Signs Vital signs: Vital Signs Temp 98.3 F 01/07/19 00:00 Pulse 79 01/07/19 04:00 Resp 20 01/07/19 04:00 BP 116/55 01/07/19 00:00 Pulse Ox 100 01/07/19 00:00 Intake & Output 01/06/19 01/07/19 01/07/19 18:59 06:59 18:59 Intake Total 308.053 181.947 120 Output Total 850 1200 Balance -541.947 -1018.053 120 Weight 77.4 kg Intake: Intake, IV Titration 68.053 181.947 Amount Heparin Sod,Pork in 0.45% 68.053 181.947 NaCl 25,000 unit In 0.45 % NaCl 1 250ml.bag @ 12 UNITS/KG/HR 9.28 mls/hr IV .Q24H [facility] Rx#: [id number] Oral 240 120 Output: Urine 850 1200 Other: # Voids 1 1 - Exam PHYSICAL EXAMINATION: GENERAL: The patient is alert and oriented x3, not in any acute distress. Well developed, well nourished. HEENT: Pupils are round and equally reacting to light. EOMI. No scleral icterus. No conjunctival pallor. Normocephalic, atraumatic. No pharyngeal erythema. No thyromegaly. CARDIOVASCULAR: S1 and S2 present. No murmurs, rubs, or gallops. PULMONARY: Chest is clear to auscultation, no wheezing or crackles. ABDOMEN: Soft, nontender, nondistended, normoactive bowel sounds. No palpable organomegaly. MUSCULOSKELETAL: No joint swelling or deformity. EXTREMITIES: No cyanosis, clubbing, or pedal edema. NEUROLOGICAL: Gross neurological examination did not reveal any focal deficits. SKIN: No rashes. - Labs CBC & Chem 7: 01/08/19 06:19 01/07/19 05:54 Labs: Abnormal Lab Results - Last 24 Hours (Table) 01/06/19 01/06/19 01/07/19 Range/Units 10:56 19:14 05:54 RBC (4.30-5.90) m/uL Hgb (13.0-17.5) gm/dL Hct (39.0-53.0) % MCV (80.0-100.0) fL MCH (25.0-35.0) pg RDW (11.5-15.5) % Plt Count (150-450) k/uL APTT 36.8 H 56.8 H (22.0-30.0) sec Chloride 115 H (98-107) mmol/L Glucose 155 H (74-99) mg/dL Triglycerides 184 H (<150) mg/dL HDL Cholesterol 29 L (40-60) mg/dL 01/07/19 01/07/19 Range/Units 05:54 05:54 RBC 2.69 L (4.30-5.90) m/uL Hgb 10.4 L (13.0-17.5) gm/dL Hct 33.1 L (39.0-53.0) % MCV 123.0 H (80.0-100.0) fL MCH 38.6 H (25.0-35.0) pg RDW 17.6 H (11.5-15.5) % Plt Count 484 H (150-450) k/uL APTT 49.9 H (22.0-30.0) sec Chloride (98-107) mmol/L Glucose (74-99) mg/dL Triglycerides (<150) mg/dL HDL Cholesterol (40-60) mg/dL Assessment and Plan Assessment: 1. Non-ST elevated myocardial infarction, currently chest pain-free. - Patient remains on IV heparin drip per protocol - 2-D echo with Doppler ordered for left ventricular function - Cardiology recommended cardiac catheterization on Tuesday - Patient remains on aspirin, statins, metoprolol and Plavix - Started on Nitropaste for chest pain 2. History of coronary artery disease s/p bypass grafting; workup was about 3. History of aortic valve repair with TAVR 4. Hypertension; stable on home dose of beta blockers and amlodipine 5. Dyslipidemia; Lipitor 20 mg by mouth daily at bedtime 6. Diabetes mellitus; Levemir 20 units subcu daily at bedtime - Monitor Accu-Cheks every before meals and at bedtime with insulin sliding scale 7. Chronic anemia; stable at baseline; continue to monitor 8. DVT prophylaxis; IV heparin CODE STATUS; full code Time with Patient: Greater than 30
[2019-01-08 11:46] LABS: Glucose,Whole Blood 148 mg/dL (75-99)
[2019-01-08] MEDS ORDERED: fentaNYL (PF) 50 MCG/ML 2 ML AMP IV ONE (12:25)
[2019-01-08] MEDS ORDERED: IV FLUID CONTINUATION 900 ML IV ONE (12:25)
[2019-01-08] MEDS ORDERED: LIDOCAINE 1% INJ 10MG/ML (20 ML MDV) SQ ONE ×2 (12:27→12:34)
[2019-01-08] MEDS ORDERED: NITROGLYCERIN OINT 1 INCH/GM PACKET TOPICAL ONE (12:30)
[2019-01-08] MEDS: MIDAZOLAM 2 MG/2 ML VIAL IV ONE ×2 (12:32→12:41)
[2019-01-08] MEDS ORDERED: ENALAPRILAT 1.25 MG/ML 1 ML VIAL IV ONE (12:58)
[2019-01-08] MEDS ORDERED: RX INFO: IV CONTRAST WAS GIVEN 1 EACH MISC MISCELLANE PRN (13:01)
[2019-01-08] MEDS ORDERED: IOPAMIDOL-370 150ML BTL INJ ONE (13:03)
[2019-01-08] MEDS: cloNIDine HCL 0.1 MG TAB PO PRN (16:15)
[2019-01-08 16:27] LABS: Glucose,Whole Blood 202 mg/dL (75-99)
[2019-01-08] MEDS: SODIUM CHLORIDE 0.9% 1,000 ML IV SCH (17:38)
--- NOTE | 2019-01-08 18:06 | CC ---
CARDIAC CATHETERIZATION REPORT INDICATION: Unstable angina. PROCEDURE NOTE: After obtaining informed consent, left heart catheterization and coronary angiogram and selective injection of the bypass grafts is performed via the left femoral artery using standard Niall catheters. I initially attempted vascular access on the right side, but I could not pass the guidewire across the iliac vessels due to which I obtained access on the left side and proceeded to perform the heart catheterization. I actually used a Glidewire to manipulate across the iliac vessels and subsequently used a long exchange length wire to exchange the catheter in the descending thoracic aorta. The patient tolerated the procedure well without any obvious immediate complications. At the end of the procedure, manual hemostasis was obtained. The patient received moderate conscious sedation. Total sedation time was 29 minutes. FINDINGS: HEMODYNAMICS: Central aortic pressure is elevated at 100 60/90 mm. LEFT VENTRICULOGRAM: I did not perform left ventriculogram. ANGIOGRAPHIC DATA: 1. Left main coronary artery: Left main coronary artery appears occluded, right in its proximal portion. 2. Right coronary artery: Right coronary artery was occluded on previous cardiac cath. SELECTIVE INJECTION OF THE BYPASS GRAFTS: SANTOS to LAD: SANTOS appears patent. Proximal and distal anastomotic sites appear normal. The [place] LAD is free of disease. Venous graft to the right coronary artery appears patent. The body of the graft is free of disease. Proximal and distal anastomotic sites are free of stenosis. [place] RCA shows mild disease. Selective injection of the venous graft to OM1 and OM2: The previously stented segment in the ostial portion appears normal. There are no focal stenotic lesions noted. CONCLUSIONS: 1. [place] 3-vessel coronary artery disease. 2. Patent SANTOS to LAD. 3. Patent venous graft to RCA. 4. Patent venous graft to OM1 and OM2. PLAN: The patient's management is going to be in the form of risk factor modification and optimal medical therapy. He has extensive peripheral vascular disease involving both his lower extremities. We will address this in the outpatient setting. MMODL / IJN: [id number] /
[2019-01-08 21:20] LABS: Glucose,Whole Blood 253 mg/dL (75-99)
[2019-01-09] MEDS: NITROGLYCERIN OINT 1 INCH/GM PACKET TOPICAL SCH ×2 (00:12→06:20)
--- NOTE | 2019-01-09 01:40 | P.PN ---
Subjective Progress Note Date: 01/08/19 Principal diagnosis: Non-ST elevation [place] 68-year-old male past medical history significant for coronary artery disease status post bypass grafting, aortic stenosis status post TAPVR, hypertension, dyslipidemia, diabetes mellitus, chronic anemia and multiple comorbid conditions. He follows in the office with Dr. Yin. He presented to the hospital yesterday after experiencing a heavy sensation in the midsternal region while he was sitting down watching television. He states the pain went straight through to his back and persisted for about 30 minutes. He denies associated shortness of breath, dizziness, nausea, vomiting or diaphoresis. He denies any symptoms of pain in the arm, neck or jaw. He verbalizes that this feels exactly how he felt in the past when he underwent stenting. Patient is admitted to the hospital with non-ST elevation [place] and remains on IV heparin drip 01/08/19 patient is s/p cardiac cath showing false pass tripple vessel ds; medical management and risk factor modification recommended; severe peripheral vascular ds to be worked up and managed as out patient; dc next 24 hrs when cleared by cardio Objective - Vital Signs Vital signs: Vital Signs Temp 98.0 F 01/08/19 04:00 Pulse 52 L 01/08/19 04:00 Resp 16 01/08/19 04:00 BP 160/64 01/08/19 04:00 Pulse Ox 99 01/08/19 09:05 Intake & Output 01/07/19 01/08/19 01/08/19 18:59 06:59 18:59 Intake Total 360 250 45.627 Output Total 950 100 Balance 360 -700 -54.373 Weight 76.5 kg Intake: Intake, IV Titration 250 45.627 Amount Heparin Sod,Pork in 0.45% 250 45.627 NaCl 25,000 unit In 0.45 % NaCl 1 250ml.bag @ 12 UNITS/KG/HR 9.28 mls/hr IV .Q24H [facility] Rx#: [id number] Oral 360 Output: Urine 950 100 Other: # Voids 1 3 - Exam PHYSICAL EXAMINATION: GENERAL: The patient is alert and oriented x3, not in any acute distress. Well developed, well nourished. HEENT: Pupils are round and equally reacting to light. EOMI. No scleral icterus. No conjunctival pallor. Normocephalic, atraumatic. No pharyngeal erythema. No thyromegaly. CARDIOVASCULAR: S1 and S2 present. No murmurs, rubs, or gallops. PULMONARY: Chest is clear to auscultation, no wheezing or crackles. ABDOMEN: Soft, nontender, nondistended, normoactive bowel sounds. No palpable organomegaly. MUSCULOSKELETAL: No joint swelling or deformity. EXTREMITIES: No cyanosis, clubbing, or pedal edema. NEUROLOGICAL: Gross neurological examination did not reveal any focal deficits. SKIN: No rashes. - Labs CBC & Chem 7: 01/08/19 06:19 01/07/19 05:54 Labs: Abnormal Lab Results - Last 24 Hours (Table) 01/08/19 01/08/19 Range/Units 06:19 06:24 RBC 2.21 L (4.30-5.90) m/uL Hgb 8.6 L D (13.0-17.5) gm/dL Hct 26.6 L (39.0-53.0) % MCV 120.4 H (80.0-100.0) fL MCH 39.1 H (25.0-35.0) pg RDW 17.3 H (11.5-15.5) % Plt Count 511 H (150-450) k/uL POC Glucose (mg/dL) 155 H (75-99) mg/dL Assessment and Plan Assessment: 1. Non-ST elevated myocardial infarction, currently chest pain-free. - Patient remains on IV heparin drip per protocol - 2-D echo with Doppler ordered for left ventricular function - Cardiology recommended cardiac catheterization on Tuesday - Patient remains on aspirin, statins, metoprolol and Plavix - Started on Nitropaste for chest pain 2. History of coronary artery disease s/p bypass grafting; workup was about 3. History of aortic valve repair with TAVR 4. Hypertension; stable on home dose of beta blockers and amlodipine 5. Dyslipidemia; Lipitor 20 mg by mouth daily at bedtime 6. Diabetes mellitus; Levemir 20 units subcu daily at bedtime - Monitor Accu-Cheks every before meals and at bedtime with insulin sliding scale 7. Chronic anemia; stable at baseline; continue to monitor 8. DVT prophylaxis; IV heparin CODE STATUS; full code Time with Patient: Greater than 30
[2019-01-09] MEDS ORDERED: ACETAMINOPHEN TAB 325 MG TAB PO PRN (02:39)
[2019-01-09] MEDS: SODIUM CHLORIDE 0.9% 1,000 ML IV SCH (02:54)
[2019-01-09 06:10] LABS: Glucose,Whole Blood 144 mg/dL (75-99)
[2019-01-09 08:25] LABS: Anion Gap 6 mmol/L; Blood Urea Nitrogen 16 mg/dL (9-20); Calcium 8.6 mg/dL (8.4-10.2); Carbon Dioxide 21 mmol/L (22-30); Chloride 114 mmol/L (98-107); Glucose 126 mg/dL (74-99); Potassium 4.5 mmol/L (3.5-5.1); Sodium 141 mmol/L (137-145)
[2019-01-09 08:42] VITALS: BP 160/58; PULSE 60; RESP 16; TEMP 97
[2019-01-09] MEDS: METOPROLOL TARTRATE 25 MG TAB PO SCH (08:47)
[2019-01-09] MEDS: CLOPIDOGREL 75 MG TAB PO SCH (08:47)
[2019-01-09] MEDS: LOSARTAN 50 MG TAB PO SCH (08:47)
[2019-01-09] MEDS: amLODIPine 10 MG TAB PO SCH (08:47)
[2019-01-09 08:58] LABS: Anisocytosis Slight; Basophils % (A) 0 %; Eosinophils # (A) 0.4 k/uL (0-0.7); Eosinophils % (A) 8 %; HCT 27.2 % (39.0-53.0); HGB 8.6 gm/dL (13.0-17.5); Lymphocytes # (A) 0.9 k/uL (1.0-4.8); Lymphocytes % (A) 20 %; MCH 39.8 pg (25.0-35.0); MCHC 31.7 g/dL (31.0-37.0); Macrocytosis Marked; Mean Platelet Volume 6.6; Monocytes # (A) 0.3 k/uL (0-1.0); Monocytes % (A) 7 %; Neutrophils # (A) 2.9 k/uL (1.3-7.7); Neutrophils % (A) 63 %; Platelet Count 491 k/uL (150-450); RBC 2.17 m/uL (4.30-5.90); RDW 17.5 % (11.5-15.5); WBC 4.6 k/uL (3.8-10.6)
[2019-01-09] MEDS ORDERED: ATORVASTATIN 80 MG TAB PO SCH (09:00)
[2019-01-09] MEDS ORDERED: ASPIRIN 325 MG TAB PO SCH (09:00)
[2019-01-09 09:06] LABS: MCV 125.4 fL (80.0-100.0)
[2019-01-09 10:50] LABS: Poikilocytosis (M) Present
--- NOTE | 2019-01-09 11:55 | P.PN ---
Subjective Progress Note Date: 01/09/19 this is a pleasant 68-year-old male past medical history significant for coronary artery disease status post bypass grafting, aortic stenosis status post TAVR, hypertension, dyslipidemia, diabetes mellitus, chronic anemia and multiple comorbid conditions. He follows in the office with Dr. Yin. We've been asked to see him in consultation for symptoms chest discomfort. Patient ruled in for a non-ST elevation [place]. He was seen in consultation yesterday, recommended to undergo cardiac catheterization by Dr. Yin tomorrow. He was seen and examined this morning sitting up in the chair at bedside. He denies any chest pain in his breathing overall has been stable. Blood pressure earlier this morning 186/70, subsequent blood pressure 190/80. 2018 Patient underwent a cardiac catheterization yesterday which revealed [place] 3 vessel coronary artery disease with a patent SANTOS to the LAD, patent vein graft to the RCA as well as OM1 and 2. He was seen and examined this morning, denied any chest pain or difficulty in breathing. Patient had apparently been inappropriate swearing at the nurses through the night last night, some of this behavior was again noticed this morning. Blood pressure 160/50 with a heart rate in the 60s, 100% on room air. White blood cell count 4.6, hemoglobin 8.6, platelet count 491. Sodium 141, potassium 4.5, BUN 16 and creatinine 0.9. Objective - Vital Signs Vital signs: Vital Signs Temp 97 F L 01/09/19 08:41 Pulse 60 01/09/19 08:41 Resp 16 01/09/19 08:41 BP 160/58 01/09/19 08:41 Pulse Ox 100 01/09/19 08:41 Intake & Output 01/08/19 01/09/19 01/09/19 18:59 06:59 18:59 Intake Total 915.627 240 Output Total 700 2200 400 Balance 215.627 -2200 -160 Weight 65.1 kg Intake: IV 400 Intake, IV Titration 275.627 Amount Heparin Sod,Pork in 0.45% 45.627 NaCl 25,000 unit In 0.45 % NaCl 1 250ml.bag @ 12 UNITS/KG/HR 9.28 mls/hr IV .Q24H [facility] Rx#: [id number] Sodium Chloride 0.9% 1, 230 000 ml In Empty Bag 1 bag @ 1 ML/KG/HR 77.4 mls/hr IV .[id number] [facility] Rx#: [id number] Oral 240 240 Output: Urine 700 2200 400 Other: # Voids 2 - Exam PHYSICAL EXAMINATION: GENERAL: 68-year-old gentleman in no acute distress at the time of my examination HEENT: Head is atraumatic, normocephalic. Pupils equal, round. Sclera anicteric. Conjunctiva are clear. Mucous membranes of the mouth are moist. Neck is supple. There is no elevated jugular venous pressure no carotid] bruit is heard. HEART EXAMINATION: Heart S1 S2 1 systolic ejection murmur is heard. CHEST EXAMINATION: Lungs are clear to auscultation and precussion. No chest wall tenderness is noted on palpation or with deep breathing. ABDOMEN: Soft, nontender. Bowel sounds are heard. No organomegaly noted. EXTREMITIES: 2+ peripheral pulses with no evidence of peripheral edema and no calf tenderness noted. Right groin is soft, no evidence of any hematoma. NEUROLOGIC patient is awake, alert and oriented 3 . . - Labs CBC & Chem 7: 01/09/19 07:13 01/09/19 07:13 Labs: Abnormal Lab Results - Last 24 Hours (Table) 01/08/19 01/08/19 01/09/19 Range/Units 16:12 21:14 06:05 RBC (4.30-5.90) m/uL Hgb (13.0-17.5) gm/dL Hct (39.0-53.0) % MCV (80.0-100.0) fL MCH (25.0-35.0) pg RDW (11.5-15.5) % Plt Count (150-450) k/uL Lymphocytes # (1.0-4.8) k/uL Chloride (98-107) mmol/L Carbon Dioxide (22-30) mmol/L Glucose (74-99) mg/dL POC Glucose (mg/dL) 202 H 253 H 144 H (75-99) mg/dL 01/09/19 01/09/19 Range/Units 07:13 07:13 RBC 2.17 L (4.30-5.90) m/uL Hgb 8.6 L (13.0-17.5) gm/dL Hct 27.2 L (39.0-53.0) % MCV 125.4 H D (80.0-100.0) fL MCH 39.8 H (25.0-35.0) pg RDW 17.5 H (11.5-15.5) % Plt Count 491 H (150-450) k/uL Lymphocytes # 0.9 L (1.0-4.8) k/uL Chloride 114 H (98-107) mmol/L Carbon Dioxide 21 L (22-30) mmol/L Glucose 126 H (74-99) mg/dL POC Glucose (mg/dL) (75-99) mg/dL Assessment and Plan Plan: Assessment and plan #1 non-ST elevation [place] #2 history of coronary artery disease with prior bypass surgery #3 history of aortic valve repair with TAVR #4 hypertension #5 hyperlipidemia #6 diabetes #7 chronic anemia Plan Cardiac catheterization performed yesterday revealed a patent SANTOS to the LAD, saphenous vein grafts were also patent. Medical therapy was advised. Patient may be able to be discharged home today. We'll make him a follow-up appointment to see Dr. Yin in the office post discharge. DNP note has been reviewed, I agree with a documented findings and plan of care. Patient was seen and examined.
--- NOTE | 2019-01-09 11:56 | P.DS ---
Providers Date of admission: 01/06/19 08:43 Attending physician: Kendy Camacho Consults: 01/06/19 01:29 Consult Physician Urgent Consulting Provider: Lj Yin Consult Reason/Comments: chest pain Do you want consulting provider notified?: Yes, Notify in am Primary care physician: [place] Hospital Course: 68-year-old male past medical history significant for coronary artery disease status post bypass grafting, aortic stenosis status post TAPVR, hypertension, dyslipidemia, diabetes mellitus, chronic anemia and multiple comorbid conditions. He follows in the office with Dr. Yin. He presented to the hospital yesterday after experiencing a heavy sensation in the midsternal region while he was sitting down watching television. He states the pain went straight through to his back and persisted for about 30 minutes. He denies associated shortness of breath, dizziness, nausea, vomiting or diaphoresis. He denies any symptoms of pain in the arm, neck or jaw. He verbalizes that this feels exactly how he felt in the past when he underwent stenting. Patient is admitted to the hospital with non-ST elevation [place] and remains on IV heparin drip 01/08/19 patient is s/p cardiac cath showing [place] tripple vessel ds; medical management and risk factor modification recommended; severe peripheral vascular ds to be worked up and managed as out patient; dc next 24 hrs when cleared by cardio 01/09/2019 patient is chest pain-free, status post cardiac catheterization did not show any stent table atherosclerotic occlusive disease and cardiology is according medical management. Imdur was added to his regimen. If cleared by cardiology patient will will be discharged today PHYSICAL EXAMINATION: GENERAL: The patient is alert and oriented x3, not in any acute distress. Well developed, well nourished. HEENT: Pupils are round and equally reacting to light. EOMI. No scleral icterus. No conjunctival pallor. Normocephalic, atraumatic. No pharyngeal erythema. No thyromegaly. CARDIOVASCULAR: S1 and S2 present. No murmurs, rubs, or gallops. PULMONARY: Chest is clear to auscultation, no wheezing or crackles. ABDOMEN: Soft, nontender, nondistended, normoactive bowel sounds. No palpable organomegaly. MUSCULOSKELETAL: No joint swelling or deformity. EXTREMITIES: No cyanosis, clubbing, or pedal edema. NEUROLOGICAL: Gross neurological examination did not reveal any focal deficits. SKIN: No rashes. for other chronic medical problems hospital admission course please refer to dictation from Dr. Walden from yesterday Patient Condition at Discharge: Fair Plan - Discharge Summary Discharge Rx Participant: Yes New Discharge Prescriptions: New amLODIPine [Norvasc] 10 mg PO DAILY tab Aspirin 325 mg PO DAILY tab Atorvastatin [Lipitor] 80 mg PO DAILY #30 tab Clopidogrel [Plavix] 75 mg PO DAILY tab Losartan [Cozaar] 50 mg PO DAILY #30 tab Carvedilol [Coreg] 3.125 mg PO BID #60 tablet Continue Ferrous Sulfate [Iron (65 MG Elemental)] 325 mg PO DAILY Levothyroxine Sodium [Synthroid] 125 mcg PO DAILY metFORMIN HCL [Glucophage] 500 mg PO BID Vit C/E/Zn/Coppr/Lutein/Zeaxan [Preservision Areds 2 Softgel] 1 cap PO BID Gabapentin [Neurontin] 100 mg PO TID traMADol HCL [Ultram] 50 mg PO Q6HR PRN PRN Reason: Pain Cyanocobalamin [Vitamin B-12 Injection] 1,000 mcg SQ MOWEFR Hydroxyurea [Hydrea] 500 mg PO SUSA Hydroxyurea [Hydrea] 1,000 mg PO MOTUWETHFR Discontinued Aspirin 81 mg PO DAILY chew Enalapril [Vasotec] 5 mg PO DAILY Metoprolol Tartrate [Lopressor] 50 mg PO DAILY Discharge Medication List Ferrous Sulfate [Iron (65 MG Elemental)] 325 mg PO DAILY 03/11/16 [History] Levothyroxine Sodium [Synthroid] 125 mcg PO DAILY 06/14/18 [History] Cyanocobalamin [Vitamin B-12 Injection] 1,000 mcg SQ MOWEFR 01/06/19 [History] Gabapentin [Neurontin] 100 mg PO TID 01/06/19 [History] Hydroxyurea [Hydrea] 1,000 mg PO MOTUWETHFR 01/06/19 [History] Hydroxyurea [Hydrea] 500 mg PO SUSA 01/06/19 [History] Vit C/E/Zn/Coppr/Lutein/Zeaxan [Preservision Areds 2 Softgel] 1 cap PO BID 01/06 [History] metFORMIN HCL [Glucophage] 500 mg PO BID 01/06/19 [History] traMADol HCL [Ultram] 50 mg PO Q6HR PRN 01/06/19 [History] Aspirin 325 mg PO DAILY tab 01/08/19 [Rx] Atorvastatin [Lipitor] 80 mg PO DAILY #30 tab 01/08/19 [Rx] Clopidogrel [Plavix] 75 mg PO DAILY tab 01/08/19 [Rx] Losartan [Cozaar] 50 mg PO DAILY #30 tab 01/08/19 [Rx] amLODIPine [Norvasc] 10 mg PO DAILY tab 01/08/19 [Rx] Carvedilol [Coreg] 3.125 mg PO BID #60 tablet 01/09/19 [Rx] Follow up Appointment(s)/Referral(s): Lj Yin MD [STAFF PHYSICIAN] - 01/17/19 4:15 pm (Tuesday) [facility],Clinic [Primary Care Provider] - 3 Days (Per office policy, you must call to make this appointment) Patient Instructions/Handouts: *Surgery [facility] - After Heart Catheterization - Manager Grant Instructions, Left Heart Catheterization (DC) Discharge Disposition: HOME SELF-CARE
== END 2019-01-09 12:21 | disposition home or self-care (01) | DRG 282 ==
LOC: EC 20:40 → 1SOBS 01-06 01:29 → 3SCARD 01-06 06:22 → OBSVTOIN 01-06 08:43
PROVIDERS: ADMIT Hospitalist; ATTEND Hospitalist
PROC: B2131ZZ Fluoroscopy of Multiple Coronary Artery Bypass Grafts using Low Osmolar Contrast (ICD-10-PCS; principal; 2019-01-08 12:10)
PROC: 4A023N7 Measurement of Cardiac Sampling and Pressure, Left Heart, Percutaneous Approach (ICD-10-PCS; principal; 2019-01-08 12:10)
PROC: B2181ZZ Fluoroscopy of Left Internal Mammary Bypass Graft using Low Osmolar Contrast (ICD-10-PCS; principal; 2019-01-08 12:10)
PROC: B2111ZZ Fluoroscopy of Multiple Coronary Arteries using Low Osmolar Contrast (ICD-10-PCS; principal; 2019-01-08 12:10)
DX: I21.4 Non-ST elevation (NSTEMI) myocardial infarction (principal); D64.9 Anemia, unspecified; E03.9 Hypothyroidism, unspecified; E11.42 Type 2 diabetes mellitus with diabetic polyneuropathy; E11.51 Type 2 diabetes mellitus with diabetic peripheral angiopathy without gangrene; E78.5 Hyperlipidemia, unspecified; F17.200 Nicotine dependence, unspecified, uncomplicated; G40.909 Epilepsy, unspecified, not intractable, without status epilepticus; I10 Essential (primary) hypertension; I25.110 Atherosclerotic heart disease of native coronary artery with unstable angina pectoris; I25.2 Old myocardial infarction; I35.0 Nonrheumatic aortic (valve) stenosis; I49.3 Ventricular premature depolarization; Z79.02 Long term (current) use of antithrombotics/antiplatelets; Z79.4 Long term (current) use of insulin; Z79.82 Long term (current) use of aspirin; Z79.890 Hormone replacement therapy; Z79.899 Other long term (current) drug therapy; Z82.49 Family history of ischemic heart disease and other diseases of the circulatory system; Z85.46 Personal history of malignant neoplasm of prostate; Z86.73 Personal history of transient ischemic attack (TIA), and cerebral infarction without residual deficits; Z95.1 Presence of aortocoronary bypass graft; Z95.2 Presence of prosthetic heart valve; Z96.1 Presence of intraocular lens; Z57.4 Occupational exposure to toxic agents in agriculture
CPT/HCPCS: 36415; 71046; 71275; 80048; 80053; 80061; 83735; 83880; 84484; 85025; 85379; 85610; 85730; 93005; 93306; 93458; 94760; 96374; 99285

== ENCOUNTER → 2019-03-16 | Day surgery (SDC) | payer MEDICARE ==
[2019-03-14 10:27] VITALS: BMI 24.3
[~2019-03-16] MED LIST: ENALAPRILAT 1.25 MG/ML 1 ML VIAL IVP STA; ENALAPRILAT 1.25 MG/ML 1 ML VIAL ONE; IOPAMIDOL-250 100ML BTL INTRAARTER ONE; IOPAMIDOL-250 50ML BTL INTRAARTER ONE; LIDOCAINE 1% INJ 10MG/ML (20 ML MDV) SQ ONE; LOSARTAN 50 MG TAB PO ONE; LOSARTAN 50 MG TAB PO SCH; MIDAZOLAM (PF) 2 MG/2 ML VIAL IV ONE; SODIUM CHLORIDE 0.9% 1,000 ML IV ONE; SODIUM CHLORIDE 0.9% 1,000 ML IV SCH; SODIUM CHLORIDE 0.9% 1,000 ML in EMPTY BAG 1 BAG IV ONE; hydrALAZINE HCL 20 MG/ML 1 ML VIAL IVP STA; hydrALAZINE HCL 20 MG/ML 1 ML VIAL ONE
[2019-03-16 11:39] LABS: Glucose,Whole Blood 129 mg/dL (75-99)
[2019-03-16 11:55] VITALS: RESP 16; TEMP 98
[2019-03-16 12:29] LABS: Basophils % (A) 1 %; Eosinophils # (A) 0.8 k/uL (0-0.7); Eosinophils % (A) 14 %; HGB 9.9 gm/dL (13.0-17.5); Lymphocytes # (A) 1.1 k/uL (1.0-4.8); Lymphocytes % (A) 20 %; MCH 39.7 pg (25.0-35.0); MCV 123.9 fL (80.0-100.0); Macrocytosis Marked; Mean Platelet Volume 7.1; Monocytes # (A) 0.2 k/uL (0-1.0); Monocytes % (A) 4 %; Neutrophils # (A) 3.2 k/uL (1.3-7.7); Neutrophils % (A) 57 %; Platelet Count 272 k/uL (150-450); RDW 14.9 % (11.5-15.5); WBC 5.7 k/uL (3.8-10.6)
[2019-03-16 12:30] LABS: Calcium 10.1 mg/dL (8.4-10.2); Potassium 4.5 mmol/L (3.5-5.1)
[2019-03-16] MEDS: hydrALAZINE HCL 20 MG/ML 1 ML VIAL IV ONE ×2 (13:24→13:45)
--- NOTE | 2019-03-16 13:53 | IR ---
Fluoroscopy HISTORY: Pain in leg 2.4 minutes fluoroscopy time supplied to the referring clinician. 201 intraoperative C-arm images do cument the procedure. See dictated report from cardiology.
--- NOTE | 2019-03-16 15:15 | AN ---
ANGIOGRAPHY REPORT DATE OF SERVICE: 03/16/2019 PERFORMING PHYSICIAN: Hussain House MD, Senior Compensation Analyst. PROCEDURE PERFORMED: 1. Abdominal aortogram. 2. Bilateral lower extremity runoff. INDICATION: This is a 68-year-old gentleman who sees Dr. Yin in the office as an outpatient with hypertension and dyslipidemia who was experiencing bilateral lower extremity intermittent claudication concerning for intermittent claudication. He underwent an arterial duplex study which showed severe bilateral femoral-popliteal disease. The plan was to proceed with aortogram and runoff. APPROACH: Right common femoral artery. COMPLICATION: None. LEVEL OF SEDATION: Moderate with sedation length of 21 minutes. PROCEDURE DESCRIPTION: After obtaining an informed consent, the patient was brought to the cardiac cath laboratory technician. The right common femoral artery was cannulated using micropuncture technique and a micropuncture wire passed easily, then I placed a 4-Indian sheath in the right common femoral artery. After that, I did an abdominal aortogram and bilateral lower extremities runoff using 4-Indian pigtail catheter. The procedure was completed without any complication. PERIPHERAL ANGIOGRAM: 1. The aorta is extremely calcified with mild disease only. 2. Common iliac artery, the right common iliac artery appeared to have mild disease only and the left common iliac artery appeared to be angiographically normal. 3. External iliac artery, the right external iliac artery appeared to have intermediate lesion in the range of 60% and the left external iliac artery appeared to have a tight lesion in the range of 70% to 80%. 4. Common femoral arteries, the right and left common femoral arteries appear to have mild to moderate diffuse disease. 5. Profunda, both profunda are patent. 6. SFA, both SFA are occluded in a long segment, extends from the ostium all the way to the popliteal. 7. Popliteal. both popliteal are occluded. 8. Below the knee, very poor runoff below the knee bilaterally with anterior tibial only. CONCLUSION: 1. Severe aortoiliac disease with severe left external iliac artery and intermediate right external iliac artery. 2. Severe femoral-popliteal disease with occluded bilateral superficial femoral artery and occluded bilateral popliteal. 3. Severe [id number] disease with only one vessel runoff with anterior tibial artery. POSTPROCEDURE MANAGEMENT: 1. Giving the above anatomy came, I did recommend proceeding with MAIL RIDER and stenting of the left external iliac artery and possibly right external iliac artery. 2. After that, will address with the patient the two options which include surgical revascularization versus percutaneous revascularization of the SFA and popliteal bilaterally. MMCLARIL / IJN: [id number] /
[2019-03-16 17:22] VITALS: BP 156/67; PULSE 64
== END | disposition home or self-care (01) ==
LOC: CATHCVL 10:11
PROVIDERS: ATTEND Internal Medicine Interventional Cardiology
DX: E11.51 Type 2 diabetes mellitus with diabetic peripheral angiopathy without gangrene (principal); I70.213 Atherosclerosis of native arteries of extremities with intermittent claudication, bilateral legs; I10 Essential (primary) hypertension; I25.810 Atherosclerosis of coronary artery bypass graft(s) without angina pectoris; E78.5 Hyperlipidemia, unspecified; I35.0 Nonrheumatic aortic (valve) stenosis; I70.0 Atherosclerosis of aorta; Z79.4 Long term (current) use of insulin; Z72.0 Tobacco use; Z79.82 Long term (current) use of aspirin; Z79.890 Hormone replacement therapy; Z79.899 Other long term (current) drug therapy; Z79.02 Long term (current) use of antithrombotics/antiplatelets
CPT/HCPCS: 36200; 75625; 75716; 80048; 85025; C1769 ×4; J0360; J2001; Q9966 ×2; J2250

== ENCOUNTER 2019-05-14 08:58 | Inpatient (IN) | payer OTHER, MEDICARE ==
[2019-05-14 09:06] LABS: Glucose,Whole Blood 62 mg/dL (75-99)
[2019-05-14] MEDS ORDERED: SODIUM CHLORIDE 0.9% 500 ML 500 ML IV STA (09:15)
--- NOTE | 2019-05-14 09:34 | ED ---
Weakness HPI - General Source: patient, EMS, RN notes reviewed Mode of arrival: EMS Limitations: physical limitation <Chemo Ferreira - Last Filed: 05/14/19 11:41> <Azeem Rivers - Last Filed: 05/14/19 12:06> - General Chief complaint: Weakness Stated complaint: immobility Time Seen by Provider: 05/14/19 09:02 - History of Present Illness Initial comments: This a 68-year-old male presents emergency Department with chief complaint of generalized weakness. Patient states over the last 3-4 days he has progressively getting more weak. He states the point where he has not been walking. Patient states she's been sitting in a wheelchair in which she normally uses him relate with a walker. Patient does admit to a prior CVA and has normal left-sided weakness with left-sided foot drop. Patient states that side is not worsened usual. Patient complains that he has decreased mobility of his right leg, his toe is black. Patient states he has been starting to go to the wound center and he has an appointment scheduled today for this. Patient reports no fevers or chills. Patientchest pain, headache, dizziness, nausea, vomiting diarrhea constipation. No fevers chills no URI symptoms. Patient states that his called EMS because he cannot get up and take care of himself anymore. (Chemo Ferreira) - Related Data Home Medications Medication Instructions Recorded Confirmed Ferrous Sulfate [Iron (65 MG 325 mg PO DAILY 03/11/16 05/14/19 Elemental)] Levothyroxine Sodium [Synthroid] 125 mcg PO DAILY 06/14/18 05/14/19 Hydroxyurea [Hydrea] 1,000 mg PO SUSA 01/06/19 05/14/19 Hydroxyurea [Hydrea] 500 mg PO MOTUWETHFR 01/06/19 05/14/19 Vit C/E/Zn/Coppr/Lutein/Zeaxan 2 cap PO DAILY 01/06/19 05/14/19 [Preservision Areds 2 Softgel] traMADol HCL [Ultram] 50 mg PO Q6HR PRN 01/06/19 05/14/19 Insulin Glargine [Lantus] 35 unit SQ DAILY 03/14/19 05/14/19 Carvedilol [Coreg] 3.125 mg PO BID 03/16/19 05/14/19 Atorvastatin [Lipitor] 80 mg PO HS 05/14/19 05/14/19 Gabapentin [Neurontin] 300 mg PO QID 05/14/19 05/14/19 Previous Rx's Medication Instructions Recorded Aspirin 325 mg PO DAILY tab 01/08/19 Clopidogrel [Plavix] 75 mg PO DAILY tab 01/08/19 Losartan [Cozaar] 50 mg PO DAILY #30 tab 01/08/19 amLODIPine [Norvasc] 10 mg PO DAILY tab 01/08/19 Allergies Allergy/AdvReac Type Severity Reaction Status Date / Time No Known Allergies Allergy Verified 05/14/19 09:33 Review of Systems ROS Other: All systems not noted in ROS Statement are negative. <Chemo Ferreira - Last Filed: 05/14/19 11:41> ROS Other: All systems not noted in ROS Statement are negative. <Azeem Rivers - Last Filed: 05/14/19 12:06> ROS Statement: Those systems with pertinent positive or pertinent negative responses have been documented in the HPI. Past Medical History Past Medical History: Coronary Artery Disease (CAD), CVA/TIA, Diabetes Mellitus, Hyperlipidemia, Hypertension, Myocardial Infarction ([place]), Neurologic Disorder, Pneumonia, Seizure Disorder, Thyroid Disorder, Vascular Disorder Additional Past Medical History / Comment(s): hx. prostate cancer 2018-dr mike, previous CVA, hypothyroidism, iron deficiency anemia, PVD & neuropathy, hematologic disease of an unknown type-maintained on Hydroxyurea, spouse knows of no seizure problem,. 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 [employer], HAD SOME SKIN DISEASE WHERE HIS HANDS AND FEET WOULD BLISTER/PEEL HAD BX DONE- never found cause Last Myocardial Infarction Date:: 02/17/2016 History of Any Multi-Drug Resistant Organisms: None Reported Past Surgical History: Coronary Bypass/CABG, Heart Catheterization, Heart Catheterization With Stent, Orthopedic Surgery Additional Past Surgical History / Comment(s): 02/24/16 CABG quad bypass with aortic valve replacement (TAVR), RT HAND INDEX FINGER BONE CHIP REMOVED, RT WRIST SURG., colonoscopy, bilateral cataract removal Past Anesthesia/Blood Transfusion Reactions: No Reported Reaction Date of Last Stent Placement:: 2017 Past Psychological History: No Psychological Hx Reported Smoking Status: Current every day smoker Past Alcohol Use History: None Reported Past Drug Use History: None Reported - Past Family History Father Family Medical History: Coronary Artery Disease (CAD) Additional Family Medical History / Comment(s): VASCULAR PROBLEMS/valve r eplacement. Mother Family Medical History: Coronary Artery Disease (CAD) Additional Family Medical History / Comment(s): VASCULAR PROBLEMS HAD PIG VALVE. <Chemo Ferreira - Last Filed: 05/14/19 11:41> General Exam Limitations: physical limitation General appearance: alert, in no apparent distress Head exam: Present: atraumatic, normocephalic, normal inspection Eye exam: Present: normal appearance, PERRL, EOMI. Absent: scleral icterus, conjunctival injection, periorbital swelling ENT exam: Present: normal exam, normal oropharynx, mucous membranes moist Neck exam: Present: normal inspection, full ROM. Absent: tenderness, meningismus, lymphadenopathy Respiratory exam: Present: normal lung sounds bilaterally. Absent: respiratory distress, wheezes, rales, rhonchi, stridor Cardiovascular Exam: Present: regular rate, normal rhythm, normal heart sounds. Absent: systolic murmur, diastolic murmur, rubs, gallop, clicks GI/Abdominal exam: Present: soft, normal bowel sounds. Absent: distended, tenderness, guarding, rebound, rigid Extremities exam: Present: other (Chronic left-sided weakness from prior CVA, right foot fifth digit eschar tissue noted, foul-smelling odor, open sore) Neurological exam: Present: alert, oriented X3, CN II-XII intact Skin exam: Present: warm, dry, intact <Chemo Ferreira M - Last Filed: 05/14/19 11:41> Course Vital Signs 05/14/19 05/14/19 09:03 11:16 Temperature 98.1 F 99.1 F Pulse Rate 66 80 Respiratory 18 19 Rate Blood Pressure 176/73 162/69 O2 Sat by Pulse 100 99 Oximetry EKG Findings - EKG Comments: EKG Findings:: EKG performed at 9:39 sinus rhythm with first-degree AV block a axis deviation rate of 70 pO2 10 QRS 94 QT/QTC 404/436 <Chemo Ferreira - Last Filed: 05/14/19 11:41> Medical Decision Making - Lab Data Result diagrams: 05/14/19 09:15 05/14/19 09:15 <Chemo Ferreira - Last Filed: 05/14/19 11:41> - Lab Data Result diagrams: 05/14/19 09:15 05/14/19 09:15 <Azeem Rivers - Last Filed: 05/14/19 12:06> - Medical Decision Making 68-year-old male presented for generalized weakness, inability to ambulate. Patient did have initial blood glucose of 46. Patient was ABLE to tolerate oral intake though this did not improve his generalized weakness. Patient has related to thrive. Patient also has diabetic foot ulcer with no evidence of osteomyelitis. Patient does have an elevated BMP with no overt heart failure concerned due to lower extremity swelling for mild CHF. Patient does have anemia though this is chronic in nature (Chemo Ferreira) Case discussed with practitioner Chemo. Case also discussed with Dr. Camacho, who will admit covering for [facility]. Vascular placed on consult. (Azeem Rivers) - Lab Data Lab Results 05/14/19 05/14/19 05/14/19 Range/Units 09:04 09:15 09:15 WBC 8.9 (3.8-10.6) k/uL RBC 2.30 L (4.30-5.90) m/uL Hgb 9.0 L (13.0-17.5) gm/dL Hct 28.0 L (39.0-53.0) % MCV 121.7 H (80.0-100.0) fL MCH 39.0 H (25.0-35.0) pg MCHC 32.0 (31.0-37.0) g/dL RDW 14.4 (11.5-15.5) % Plt Count 496 H (150-450) k/uL Neutrophils % 76 % Lymphocytes % 9 % Monocytes % 5 % Eosinophils % 8 % Basophils % 0 % Neutrophils # 6.7 (1.3-7.7) k/uL Lymphocytes # 0.8 L (1.0-4.8) k/uL Monocytes # 0.5 (0-1.0) k/uL Eosinophils # 0.7 (0-0.7) k/uL Basophils # 0.0 (0-0.2) k/uL Manual Slide Review Performed Poikilocytosis (manual Present Macrocytosis Marked A PT (9.0-12.0) sec INR (<1.2) APTT (22.0-30.0) sec Sodium 140 (137-145) mmol/L Potassium 3.9 (3.5-5.1) mmol/L Chloride 109 H (98-107) mmol/L Carbon Dioxide 22 (22-30) mmol/L Anion Gap 9 mmol/L BUN 20 (9-20) mg/dL Creatinine 1.15 (0.66-1.25) mg/dL Est GFR (CKD-EPI)AfAm 75 (>60 ml/min/1.73 sqM) Est GFR (CKD-EPI)NonAf 65 (>60 ml/min/1.73 sqM) Glucose 46 L* (74-99) mg/dL POC Glucose (mg/dL) 62 L (75-99) mg/dL POC Glu Health Manager ID Bushra Diana Plasma Lactic Acid Stiven (0.7-2.0) mmol/L Calcium 9.4 (8.4-10.2) mg/dL Magnesium 2.0 (1.6-2.3) mg/dL Total Bilirubin 0.3 (0.2-1.3) mg/dL AST 18 (17-59) U/L ALT 21 (21-72) U/L Alkaline Phosphatase 98 (38-126) U/L Creatine Kinase 95 (55-170) U/L Troponin I (0.000-0.034) ng/mL NT-Pro-B Natriuret Pep pg/mL Total Protein 6.3 (6.3-8.2) g/dL Albumin 3.6 (3.5-5.0) g/dL Urine Color Urine Appearance (Clear) Urine pH (5.0-8.0) Ur Specific [place] (1.001-1.035) Urine Protein (Negative) Urine Glucose (UA) (Negative) Urine Ketones (Negative) Urine Blood (Negative) Urine Nitrite (Negative) Urine Bilirubin (Negative) Urine Urobilinogen (<2.0) mg/dL Ur Leukocyte Esterase (Negative) Urine RBC (0-5) /hpf Urine WBC (0-5) /hpf Urine Mucus (None) /hpf 05/14/19 05/14/19 05/14/19 Range/Units 09:15 09:15 09:27 WBC (3.8-10.6) k/uL RBC (4.30-5.90) m/uL Hgb (13.0-17.5) gm/dL Hct (39.0-53.0) % MCV (80.0-100.0) fL MCH (25.0-35.0) pg MCHC (31.0-37.0) g/dL RDW (11.5-15.5) % Plt Count (150-450) k/uL Neutrophils % % Lymphocytes % % Monocytes % % Eosinophils % % Basophils % % Neutrophils # (1.3-7.7) k/uL Lymphocytes # (1.0-4.8) k/uL Monocytes # (0-1.0) k/uL Eosinophils # (0-0.7) k/uL Basophils # (0-0.2) k/uL Manual Slide Review Poikilocytosis (manual Macrocytosis PT (9.0-12.0) sec INR (<1.2) APTT (22.0-30.0) sec Sodium (137-145) mmol/L Potassium (3.5-5.1) mmol/L Chloride (98-107) mmol/L Carbon Dioxide (22-30) mmol/L Anion Gap mmol/L BUN (9-20) mg/dL Creatinine (0.66-1.25) mg/dL Est GFR (CKD-EPI)AfAm (>60 ml/min/1.73 sqM) Est GFR (CKD-EPI)NonAf (>60 ml/min/1.73 sqM) Glucose (74-99) mg/dL POC Glucose (mg/dL) (75-99) mg/dL POC Glu Health Manager ID Plasma Lactic Acid Stiven 0.8 (0.7-2.0) mmol/L Calcium (8.4-10.2) mg/dL Magnesium (1.6-2.3) mg/dL Total Bilirubin (0.2-1.3) mg/dL AST (17-59) U/L ALT (21-72) U/L Alkaline Phosphatase (38-126) U/L Creatine Kinase (55-170) U/L Troponin I 0.021 (0.000-0.034) ng/mL NT-Pro-B Natriuret Pep 4170 pg/mL Total Protein (6.3-8.2) g/dL Albumin (3.5-5.0) g/dL Urine Color Urine Appearance (Clear) Urine pH (5.0-8.0) Ur Specific [place] (1.001-1.035) Urine Protein (Negative) Urine Glucose (UA) (Negative) Urine Ketones (Negative) Urine Blood (Negative) Urine Nitrite (Negative) Urine Bilirubin (Negative) Urine Urobilinogen (<2.0) mg/dL Ur Leukocyte Esterase (Negative) Urine RBC (0-5) /hpf Urine WBC (0-5) /hpf Urine Mucus (None) /hpf 05/14/19 05/14/19 05/14/19 Range/Units 09:27 09:33 10:31 WBC (3.8-10.6) k/uL RBC (4.30-5.90) m/uL Hgb (13.0-17.5) gm/dL Hct (39.0-53.0) % MCV (80.0-100.0) fL MCH (25.0-35.0) pg MCHC (31.0-37.0) g/dL RDW (11.5-15.5) % Plt Count (150-450) k/uL Neutrophils % % Lymphocytes % % Monocytes % % Eosinophils % % Basophils % % Neutrophils # (1.3-7.7) k/uL Lymphocytes # (1.0-4.8) k/uL Monocytes # (0-1.0) k/uL Eosinophils # (0-0.7) k/uL Basophils # (0-0.2) k/uL Manual Slide Review Poikilocytosis (manual Macrocytosis PT 9.7 (9.0-12.0) sec INR 0.9 (<1.2) APTT 25.3 (22.0-30.0) sec Sodium (137-145) mmol/L Potassium (3.5-5.1) mmol/L Chloride (98-107) mmol/L Carbon Dioxide (22-30) mmol/L Anion Gap mmol/L BUN (9-20) mg/dL Creatinine (0.66-1.25) mg/dL Est GFR (CKD-EPI)AfAm (>60 ml/min/1.73 sqM) Est GFR (CKD-EPI)NonAf (>60 ml/min/1.73 sqM) Glucose (74-99) mg/dL POC Glucose (mg/dL) 96 (75-99) mg/dL POC Glu Health Manager ID Bushra Diana Plasma Lactic Acid Stiven (0.7-2.0) mmol/L Calcium (8.4-10.2) mg/dL Magnesium (1.6-2.3) mg/dL Total Bilirubin (0.2-1.3) mg/dL AST (17-59) U/L ALT (21-72) U/L Alkaline Phosphatase (38-126) U/L Creatine Kinase (55-170) U/L Troponin I (0.000-0.034) ng/mL NT-Pro-B Natriuret Pep pg/mL Total Protein (6.3-8.2) g/dL Albumin (3.5-5.0) g/dL Urine Color Light Yellow Urine Appearance Clear (Clear) Urine pH 6.5 (5.0-8.0) Ur Specific [place] 1.008 (1.001-1.035) Urine Protein 2+ H (Negative) Urine Glucose (UA) Negative (Negative) Urine Ketones Negative (Negative) Urine Blood Negative (Negative) Urine Nitrite Negative (Negative) Urine Bilirubin Negative (Negative) Urine Urobilinogen <2.0 (<2.0) mg/dL Ur Leukocyte Esterase Negative (Negative) Urine RBC <1 (0-5) /hpf Urine WBC 1 (0-5) /hpf Urine Mucus Rare H (None) /hpf 05/14/19 Range/Units 10:49 WBC (3.8-10.6) k/uL RBC (4.30-5.90) m/uL Hgb (13.0-17.5) gm/dL Hct (39.0-53.0) % MCV (80.0-100.0) fL MCH (25.0-35.0) pg MCHC (31.0-37.0) g/dL RDW (11.5-15.5) % Plt Count (150-450) k/uL Neutrophils % % Lymphocytes % % Monocytes % % Eosinophils % % Basophils % % Neutrophils # (1.3-7.7) k/uL Lymphocytes # (1.0-4.8) k/uL Monocytes # (0-1.0) k/uL Eosinophils # (0-0.7) k/uL Basophils # (0-0.2) k/uL Manual Slide Review Poikilocytosis (manual Macrocytosis PT (9.0-12.0) sec INR (<1.2) APTT (22.0-30.0) sec Sodium (137-145) mmol/L Potassium (3.5-5.1) mmol/L Chloride (98-107) mmol/L Carbon Dioxide (22-30) mmol/L Anion Gap mmol/L BUN (9-20) mg/dL Creatinine (0.66-1.25) mg/dL Est GFR (CKD-EPI)AfAm (>60 ml/min/1.73 sqM) Est GFR (CKD-EPI)NonAf (>60 ml/min/1.73 sqM) Glucose (74-99) mg/dL POC Glucose (mg/dL) 175 H (75-99) mg/dL POC Glu Health Manager ID Jones Grace Plasma Lactic Acid Stiven (0.7-2.0) mmol/L Calcium (8.4-10.2) mg/dL Magnesium (1.6-2.3) mg/dL Total Bilirubin (0.2-1.3) mg/dL AST (17-59) U/L ALT (21-72) U/L Alkaline Phosphatase (38-126) U/L Creatine Kinase (55-170) U/L Troponin I (0.000-0.034) ng/mL NT-Pro-B Natriuret Pep pg/mL Total Protein (6.3-8.2) g/dL Albumin (3.5-5.0) g/dL Urine Color Urine Appearance (Clear) Urine pH (5.0-8.0) Ur Specific [place] (1.001-1.035) Urine Protein (Negative) Urine Glucose (UA) (Negative) Urine Ketones (Negative) Urine Blood (Negative) Urine Nitrite (Negative) Urine Bilirubin (Negative) Urine Urobilinogen (<2.0) mg/dL Ur Leukocyte Esterase (Negative) Urine RBC (0-5) /hpf Urine WBC (0-5) /hpf Urine Mucus (None) /hpf Disposition <Chemo Ferreira - Last Filed: 05/14/19 11:41> <Azeem Rivers - Last Filed: 05/14/19 12:06> Clinical Impression: Anemia, Failure to thrive, Unable to ambulate, Diabetic foot ulcer, Generalized weakness Disposition: ADMITTED IP TO THIS HOSP Condition: Fair Referrals: [facility],Clinic [Primary Care Provider] - 1-2 days
[2019-05-14 09:35] LABS: Glucose,Whole Blood 96 mg/dL (75-99)
[2019-05-14 09:58] LABS: Basophils % (A) 0 %; Eosinophils # (A) 0.7 k/uL (0-0.7); Eosinophils % (A) 8 %; Lymphocytes # (A) 0.8 k/uL (1.0-4.8); Lymphocytes % (A) 9 %; MCV 121.7 fL (80.0-100.0); Macrocytosis Marked; Mean Platelet Volume 6.8; Monocytes # (A) 0.5 k/uL (0-1.0); Monocytes % (A) 5 %; Neutrophils # (A) 6.7 k/uL (1.3-7.7); Neutrophils % (A) 76 %; Platelet Count 496 k/uL (150-450); RDW 14.4 % (11.5-15.5); WBC 8.9 k/uL (3.8-10.6)
--- NOTE | 2019-05-14 10:01 | XR ---
EXAMINATION TYPE: XR chest 2V DATE OF EXAM: 05/14/2019 COMPARISON: 01/05/2019 HISTORY: Chest pain and shortness of breath TECHNIQUE: Frontal and lateral views of the chest are obtained. FINDINGS: Patient is post median sternotomy. Heart size is stable and enlarged. There are dense vascu lar calcifications present, aorta is dense and ectatic. There are overlying cardiac leads. Aortic jd ve replacement has been performed. There is no focal air space opacity, pleural effusion, or pneumoth orax seen. The cardiac silhouette size is within normal limits. The osseous structures are intact. IMPRESSION: No acute cardiopulmonary process.
[2019-05-14 10:07] LABS: INR 0.9 (<1.2); Partial Thromboplastin Time 25.3 sec (22.0-30.0); Prothrombin Time 9.7 sec (9.0-12.0)
--- NOTE | 2019-05-14 10:09 | XR ---
Right foot HISTORY: Necrotic fifth digit 3 views of the right foot Arthropathy present at the metatarsophalangeal joint of the first digit. Fifth digit shows soft tissu e swelling present. There is no periostitis to suggest osteomyelitis. No bone erosion. Plantar calcan eal spur is noted. There are dense vascular calcifications identified. Spurring present at the tibiot alar joint. IMPRESSION: Osteoarthritis first digit. Soft tissue swelling. Correlate for diabetes.
[2019-05-14 10:15] LABS: Albumin 3.6 g/dL (3.5-5.0); Calcium 9.4 mg/dL (8.4-10.2); Potassium 3.9 mmol/L (3.5-5.1); Total Bilirubin 0.3 mg/dL (0.2-1.3); Total Protein 6.3 g/dL (6.3-8.2)
[2019-05-14 10:51] LABS: Glucose,Whole Blood 175 mg/dL (75-99)
[2019-05-14 11:13] LABS: Appearance,Urine Clear (Clear); Bilirubin,Urine Negative (Negative); Blood,Urine Negative (Negative); Color,Urine Light Yellow; Glucose,Urine (UA) Negative (Negative); Ketones,Urine Negative (Negative); Leukocyte Esterase,Urine Negative (Negative); Mucus,Urine Rare /hpf; Nitrite,Urine Negative (Negative); PH, Urine 6.5 (5.0-8.0); Protein,Urine 2+ (Negative); RBC,Urine <1 /hpf (0-5); Specific Gravity,Urine 1.008 (1.001-1.035); Urobilinogen,Urine <2.0 mg/dL (<2.0)
[2019-05-14 11:18] LABS: Poikilocytosis (M) Present
[2019-05-14] MEDS ORDERED: NITROGLYCERIN SL TABS 0.4 MG TAB SUBLINGUAL PRN (11:49)
[2019-05-14] MEDS ORDERED: FUROSEMIDE 10 MG/ML 2 ML VIAL IV ONE (11:52)
[2019-05-14] MEDS ORDERED: VANCOMYCIN IV PER PHARMACY 1 EACH MISC MISCELLANE PRN (11:52)
[2019-05-14] MEDS ORDERED: cefTRIAXone IN SWFI 1,000 MG/10 ML SYRINGE IVP STA (11:52)
[2019-05-14] MEDS ORDERED: VANCOMYCIN 1,500 MG in SODIUM CHLORIDE 0.9% 250 ML IVPB STA (12:16)
[2019-05-14] MEDS: GABAPENTIN 300 MG CAP PO SCH ×2 (17:01→22:03)
[2019-05-14] MEDS: traMADol 50 MG TAB PO PRN (17:01)
[2019-05-14] MEDS: amLODIPine 10 MG TAB PO SCH (17:01)
[2019-05-14] MEDS: LOSARTAN 50 MG TAB PO SCH (17:01)
[2019-05-14] MEDS: CARVEDILOL 3.125 MG TAB PO SCH (17:02)
[2019-05-14 17:19] LABS: Glucose,Whole Blood 156 mg/dL (75-99)
[2019-05-14] MEDS ORDERED: TEMAZEPAM 15 MG CAP PO PRN (17:55)
[2019-05-14 20:55] LABS: Glucose,Whole Blood 174 mg/dL (75-99)
[2019-05-14] MEDS: HEPARIN SODIUM,PORCINE 5,000 UNIT/ML 1 ML VIAL SQ SCH (22:03)
[2019-05-14] MEDS: ATORVASTATIN 80 MG TAB PO SCH (22:03)
--- NOTE | 2019-05-14 22:03 | HP ---
HISTORY AND PHYSICAL DATE OF SERVICE: 05/14/2019 CHIEF COMPLAINT: Gangrene of the right little toe as well as generalized weakness. HISTORY OF PRESENT ILLNESS: This 68-year-old gentleman with a past medical history of multiple medical problems including history of CAD, history of diabetes type 2, hypertension, hyperlipidemia, myocardial infarction, history of seizure disorder, hypothyroidism, history of vascular disorder, history of prostate cancer, CAD/CABG being followed by Dr. Milligan in the outpatient setting was having complaints of generalized tiredness and weakness. Patient had gangrenous changes of the right little toe. The patient is complaining of pain and increasing worsening of the skin changes and the toe is almost black and the patient came to [facility] and admitted for further evaluation and treatment. There is no history of fever, rigors or chills. No history of headache, loss of consciousness or seizures at this time. PAST MEDICAL HISTORY: History of CAD, CVA, TIA, diabetes type 2, hypertension, hyperlipidemia, myocardial infarction, history of pneumonia, seizure disorder, history of prostate cancer, CAD/CABG stent. MEDICATIONS: Home medications are: 1. Vitamin C. 2. Zinc 2 capsules p.o. daily. 3. Hydrea 1000 mg p.o. Tuesday and Tuesday. 4. Synthroid 125 mcg p.o. daily. 5. Hydrea 500 mg Tuesday, Tuesday, Tuesday, and Tuesday. 6. Ultram 50 mg q.6h p.r.n. 7. Lantus 35 units subcu daily. 8. Neurontin 300 mg q.i.d. 9. Iron 320 mg p.o. daily. 10.Lipitor 80 mg q.h.s. 11.Norvasc 10 mg p.o. daily. 12.Cozaar 50 mg p.o. daily. 13.Plavix 75 mg p.o. daily. 14.Coreg 3.125 mg p.o. b.i.d. 15.Aspirin 320 mg p.o. daily. ALLERGIES: None. FAMILY HISTORY: History of coronary artery disease and valve replacement. SOCIAL HISTORY: History of smoking, continued ongoing. REVIEW OF SYSTEMS: ENT: Diminished hearing and vision. CARDIOVASCULAR: No angina or palpitations. RESPIRATION: As mentioned earlier. GASTROINTESTINAL: As mentioned earlier. no dysuria. Nervous System: No numbness or weakness. ALLERGY/IMMUNOLOGY: No asthma or hayfever. MUSCULOSKELETAL as mentioned earlier. HEMATOLOGY/ONCOLOGY: No history of anemia. ENDOCRINE: No history of diabetes or hypothyroidism. CONSTITUTIONAL: As mentioned earlier. DERMATOLOGY: Negative. RHEUMATOLOGY: Negative. PSYCHIATRY: As mentioned earlier. PHYSICAL EXAMINATION: Alert and oriented times three. Pulse 75. Pressure 182/70, respirations 18, temperature normal. Pulse ox 98% on room air. HEENT: Conjunctivae normal. Oral mucosa moist. Neck is no jugular venous distention. No carotid bruit. No lymph node enlargement. CARDIOVASCULAR system: S1, S2 muffled. No S3, no S4. RESPIRATORY: Breath sounds diminished in the bases. A few scattered rhonchi and crackles. ABDOMEN: Soft, nontender. No mass palpable. LEGS: Bilateral leg swelling and diminished sensation. Diminished pulses and significant gangrenous changes of the little toe on the right foot. NERVOUS SYSTEM: Higher functions as mentioned earlier. Moves all four limbs. No motor deficits. Sensory deficits as mentioned earlier. LYMPHATICS: No lymph nodes palpable in the neck, axillae or groin. SKIN: As mentioned earlier. JOINTS no active deforming arthropathy. LABS: WBC 8.2, hemoglobin 9, MCV 121.7. Sodium 140, potassium 3.9, glucose 46 and 156. ASSESSMENT: 1. Acute gangrene of the right 5th toe as well as diabetic gangrene. 2. Peripheral vascular disease. 3. Peripheral neuropathy secondary to diabetes. 4. Anemia, macrocytic anemia possibly nutritional. 5. Diabetes mellitus type 2, uncontrolled with hypoglycemia. 6. History of coronary artery disease. 7. History of cerebrovascular accident, transient ischemic attack. 8. Hypertension. 9. Hyperlipidemia. 10.Myocardial infarction. 11.History of pneumonia. 12.History of seizure disorder. 13.Hypothyroidism. 14.History of iron deficiency anemia. 15.History of [employer] [place] exposure. 16.History of coronary artery disease, coronary artery bypass grafting stent. 17.History of TAVR. 18.History of continued ongoing nicotine dependence. 19.NO CODE, NO CPR, NO VENT. RECOMMENDATIONS AND DISCUSSION: This 68-year-old gentleman who presented with multiple complex medical issues. We will monitor the patient closely. Continue the current medications, management and symptomatic treatment. We will initiate broad-spectrum IV antibiotics. I would recommend Zosyn and vancomycin. We will consult Infectious Disease and as well as vascular surgery. The prognosis guarded because of multiple complex medical issues. Further recommendations to follow. A copy of dictation forwarded to Dr. Milligan who is the primary physician. See orders for further details. Symptomatic treatment for the pain also will be provided. Discussed with staff. Discussed with the patient at length. Further recommendations to follow. MMODL / IJN: [id number] /
[2019-05-15] MEDS: VANCOMYCIN 1,250 MG in SODIUM CHLORIDE 0.9% 250 ML IVPB SCH ×2 (00:09→11:27)
[2019-05-15] MEDS: PIPERACILLIN-TAZOBACTAM 3.375 GM in SODIUM CHLORIDE 0.9% 100 ML IVPB SCH ×3 (00:09→15:46)
[2019-05-15 06:58] LABS: Glucose,Whole Blood 101 mg/dL (75-99)
[2019-05-15] MEDS: CARVEDILOL 3.125 MG TAB PO SCH ×2 (08:14→15:47)
[2019-05-15] MEDS: LOSARTAN 50 MG TAB PO SCH (08:14)
[2019-05-15] MEDS: amLODIPine 10 MG TAB PO SCH (08:14)
[2019-05-15] MEDS: ASPIRIN 325 MG TAB PO SCH (08:14)
[2019-05-15] MEDS: HEPARIN SODIUM,PORCINE 5,000 UNIT/ML 1 ML VIAL SQ SCH ×3 (08:14→21:24)
[2019-05-15] MEDS: CLOPIDOGREL 75 MG TAB PO SCH ×2 (08:14→08:19)
[2019-05-15] MEDS: LEVOTHYROXINE 125 MCG TAB PO SCH (08:14)
[2019-05-15] MEDS: FERROUS SULFATE 325 MG TAB PO SCH (08:14)
[2019-05-15] MEDS: GABAPENTIN 300 MG CAP PO SCH ×4 (08:14→21:24)
[2019-05-15] MEDS: INSULIN DETEMIR (LEVEMIR) 100 UNIT/ML SYR SQ SCH (08:15)
[2019-05-15] MEDS: NICOTINE 14MG/24HR PATCH TRANSDERM SCH (08:15)
[2019-05-15] MEDS: traMADol 50 MG TAB PO PRN (08:17)
[2019-05-15] MEDS: VIT A,C & E-LUTEIN-MINERALS 1 EACH TAB PO SCH (08:17)
[2019-05-15] MEDS: HYDROXYUREA 500 MG CAP PO SCH (08:18)
[2019-05-15 10:36] LABS: Basophils % (A) 0 %; Eosinophils # (A) 0.6 k/uL (0-0.7); Eosinophils % (A) 8 %; HCT 29.1 % (39.0-53.0); HGB 9.1 gm/dL (13.0-17.5); Hypochromasia Slight; Lymphocytes # (A) 0.6 k/uL (1.0-4.8); Lymphocytes % (A) 8 %; MCH 38.4 pg (25.0-35.0); MCHC 31.4 g/dL (31.0-37.0); MCV 122.5 fL (80.0-100.0); Macrocytosis Marked; Mean Platelet Volume 7.4; Monocytes # (A) 0.4 k/uL (0-1.0); Monocytes % (A) 6 %; Neutrophils # (A) 5.6 k/uL (1.3-7.7); Neutrophils % (A) 76 %; Platelet Count 520 k/uL (150-450); RBC 2.38 m/uL (4.30-5.90); RDW 14.5 % (11.5-15.5); WBC 7.4 k/uL (3.8-10.6)
[2019-05-15 10:53] LABS: Calcium 8.8 mg/dL (8.4-10.2); Potassium 3.9 mmol/L (3.5-5.1)
[2019-05-15 11:38] LABS: Poikilocytosis (M) Present
[2019-05-15 12:30] LABS: Glucose,Whole Blood 86 mg/dL (75-99)
--- NOTE | 2019-05-15 15:23 | P.PN ---
<Kenyatta Corona - Last Filed: 05/15/19 15:03> Subjective Progress Note Date: 05/15/19 Principal diagnosis: This is a 68-year-old man who was admitted to the hospital for gangrene of the right little toe. Patient has a history of CAD, CVA, TIA, diabetes type 2, high blood pressure, hyperlipidemia, myocardial infarction, history of pneumonia, seizure disorders, and a history of prostate cancer. Patient is awaiting a consult with vascular surgery and infectious disease today. Patient is c oncerned because he wants his foot looked at and treated. Patient denies any chest pain, palpitations, or shortness of breath at this time. Patient denies any fevers as well. Physical examination: On exam patient is alert and oriented 3. Vital signs are 98F, pulse 62, respirations 18 and non- labored, blood pressure 176/56, oxygen 99% on room air. HEENT: Conjunctiva normal Neck: No jugular vein distention Cardiovascular: No angina or palpitations, S1, S2 muffled no S3, S4. Respiratory: Breath sounds are diminished in the bases a few scattered rhonchi noted on exam. Abdomen: Soft, nontender Legs: bilateral leg swelling with diminished sensation. Diminished pulses noted bilaterally, significant gangrenenous changes of the little toe right foot. Skin: As mentioned earlier labs: WBC 7.4, hemoglobin 9.1, current glucose 101 Assessment: 1. Acute gangrene of the right fifth toe as well as diabetic gangrene 2. Peripheral vascular disease 3. Peripheral neuropathy secondary to diabetes 4. Anemia, macrocytic anemia possibly nutritional 5. Diabetes mellitus type 2, uncontrolled with hypoglycemia 6. History of coronary artery disease 7. History of cerebrovascular accident, transient ischemic attack 8. Hypertension 9. Hyperlipidemia 10. Myocardial infarction 11. History of pneumonia 12. History of seizure disorder 13. Hypothyroidism 14. History of iron deficiency anemia 15. History of agent orange exposure 16. History of coronary artery disease, coronary artery bypass grafting stent 17. History of TAVR 18. History of continued ongoing nicotine dependence Recommendations and discussion: Recommend continue current medications and to continue symptomatic treatment. Awaiting ID and vascular surgery consults. Continue with IV antibiotics. We will continue to closely monitor. Guarded prognosis because of multiple complex medical issues. Further recommendations to follow. Objective - Vital Signs Vital signs: Vital Signs Temp 99.6 F 05/15/19 12:53 Pulse 55 L 05/15/19 12:53 Resp 16 05/15/19 12:53 BP 199/70 05/15/19 12:53 Pulse Ox 94 L 05/15/19 12:53 Intake & Output 05/14/19 05/15/19 05/15/19 18:59 06:59 18:59 Intake Total 1349 Balance 1349 Weight 74.843 kg 76 kg Intake: Intake, IV Titration 1349 Amount Piperacillin-Tazobactam 3 100 .375 gm In Sodium Chloride 0.9% 100 ml @ 25 mls/hr IVPB Q8HR [facility] Rx# :[id number] Sodium Chloride 0.9% 500 999 ml 500 ml @ 999 mls/hr IV .Q31M [facility] Rx#:[id number] Vancomycin 1,250 mg In 250 Sodium Chloride 0.9% 250 ml @ 125 mls/hr IVPB Q12H [facility] Rx#:[id number] Other: Voiding Method Bedside Commode Bedside Commode Bedside Commode Diaper Diaper Diaper Incontinent Incontinent Incontinent # Voids 0 2 - Labs CBC & Chem 7: 05/15/19 10:04 05/15/19 10:04 Labs: Abnormal Lab Results - Last 24 Hours (Table) 05/14/19 05/14/19 05/15/19 Range/Units 17:14 20:54 06:56 RBC (4.30-5.90) m/uL Hgb (13.0-17.5) gm/dL Hct (39.0-53.0) % MCV (80.0-100.0) fL MCH (25.0-35.0) pg Plt Count (150-450) k/uL Lymphocytes # (1.0-4.8) k/uL Macrocytosis Glucose (74-99) mg/dL POC Glucose (mg/dL) 156 H 174 H 101 H (75-99) mg/dL HDL Cholesterol (40-60) mg/dL 05/15/19 05/15/19 Range/Units 10:04 10:04 RBC 2.38 L (4.30-5.90) m/uL Hgb 9.1 L (13.0-17.5) gm/dL Hct 29.1 L (39.0-53.0) % MCV 122.5 H (80.0-100.0) fL MCH 38.4 H (25.0-35.0) pg Plt Count 520 H (150-450) k/uL Lymphocytes # 0.6 L (1.0-4.8) k/uL Macrocytosis Marked A Glucose 140 H (74-99) mg/dL POC Glucose (mg/dL) (75-99) mg/dL HDL Cholesterol 26 L (40-60) mg/dL Microbiology - Last 24 Hours (Table) 05/14/19 12:49 Blood Culture - Preliminary Blood No Growth after 24 hours <Kendy Camacho - Last Filed: 05/15/19 20:49> Subjective Principal diagnosis: Review of systems Cardiovascular system no angina palpitation Respirator system mentioned earlier GI no nausea or diarrhea no dysuria or retention This patient has significant gangrenous changes of the right fifth toe itch might need surgical evaluation. We will await the cultures. Blood sugar has been monitored. Further recommendations to follow. Objective - Vital Signs Vital signs: Vital Signs Temp 99.6 F 05/15/19 12:53 Pulse 55 L 05/15/19 12:53 Resp 16 05/15/19 12:53 BP 199/70 05/15/19 12:53 Pulse Ox 94 L 05/15/19 12:53 Intake & Output 05/15/19 05/15/19 05/16/19 06:59 18:59 06:59 Intake Total 1349 Balance 1349 Weight 76 kg 76 kg Intake: Intake, IV Titration 1349 Amount Piperacillin-Tazobactam 3 100 .375 gm In Sodium Chloride 0.9% 100 ml @ 25 mls/hr IVPB Q8HR [facility] Rx# :[id number] Sodium Chloride 0.9% 500 999 ml 500 ml @ 999 mls/hr IV .Q31M [facility] Rx#:[id number] Vancomycin 1,250 mg In 250 Sodium Chloride 0.9% 250 ml @ 125 mls/hr IVPB Q12H [facility] Rx#:[id number] Other: Voiding Method Bedside Commode Bedside Commode Diaper Diaper Incontinent Incontinent # Voids 0 2 - Labs CBC & Chem 7: 05/15/19 10:04 05/15/19 10:04 Labs: Abnormal Lab Results - Last 24 Hours (Table) 05/14/19 05/15/19 05/15/19 Range/Units 20:54 06:56 10:04 RBC (4.30-5.90) m/uL Hgb (13.0-17.5) gm/dL Hct (39.0-53.0) % MCV (80.0-100.0) fL MCH (25.0-35.0) pg Plt Count (150-450) k/uL Lymphocytes # (1.0-4.8) k/uL Macrocytosis Glucose 140 H (74-99) mg/dL POC Glucose (mg/dL) 174 H 101 H (75-99) mg/dL HDL Cholesterol 26 L (40-60) mg/dL 05/15/19 05/15/19 Range/Units 10:04 20:38 RBC 2.38 L (4.30-5.90) m/uL Hgb 9.1 L (13.0-17.5) gm/dL Hct 29.1 L (39.0-53.0) % MCV 122.5 H (80.0-100.0) fL MCH 38.4 H (25.0-35.0) pg Plt Count 520 H (150-450) k/uL Lymphocytes # 0.6 L (1.0-4.8) k/uL Macrocytosis Marked A Glucose (74-99) mg/dL POC Glucose (mg/dL) 216 H (75-99) mg/dL HDL Cholesterol (40-60) mg/dL Microbiology - Last 24 Hours (Table) 05/14/19 12:49 Blood Culture - Preliminary Blood No Growth after 24 hours
[2019-05-15 17:01] LABS: Glucose,Whole Blood 86 mg/dL (75-99)
--- NOTE | 2019-05-15 17:20 | P.GSCN ---
History of Present Illness Consult date: 05/15/19 Reason for Consult: right 5th toe gangrene Past Medical History Past Medical History: Coronary Artery Disease (CAD), CVA/TIA, Diabetes Mellitus, Hyperlipidemia, Hypertension, Myocardial Infarction ([place]), Neurologic Disorder, Pneumonia, Seizure Disorder, Thyroid Disorder, Vascular Disorder Additional Past Medical History / Comment(s): hx. 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 [employer], HAD SOME SKIN DISEASE WHERE HIS HANDS AND FEET WOULD BLISTER/PEEL HAD BX DONE- never found cause Last Myocardial Infarction Date:: 02/17/2016 History of Any Multi-Drug Resistant Organisms: None Reported Past Surgical History: Coronary Bypass/CABG, Heart Catheterization, Heart Catheterization With Stent, Orthopedic Surgery Additional Past Surgical History / Comment(s): 02/24/16 CABG quad bypass with aortic valve replacement (TAVR), RT HAND INDEX FINGER BONE CHIP REMOVED, RT WRIST SURG., colonoscopy, bilateral cataract removal Past Anesthesia/Blood Transfusion Reactions: No Reported Reaction Date of Last Stent Placement:: 2017 Past Psychological History: No Psychological Hx Reported Additional Psychological History / Comment(s): PT LIVES WITH HIS USES A CANE OR WALKER Smoking Status: Current every day smoker Past Alcohol Use History: None Reported Additional Past Alcohol Use History / Comment(s): STARTED SMOKING AT AGE 18 SM OKES 1 PPD USED TO DRINK DAILY (18-24 PACK OF BEER PER DAY), has not drank since 2012 Past Drug Use History: None Reported - Past Family History Father Family Medical History: Coronary Artery Disease (CAD) Additional Family Medical History / Comment(s): VASCULAR PROBLEMS/valve replacement. Mother Family Medical History: Coronary Artery Disease (CAD) Additional Family Medical History / Comment(s): VASCULAR PROBLEMS HAD PIG VALVE. Medications and Allergies Home Medications Medication Instructions Recorded Confirmed Type Ferrous Sulfate [Iron (65 MG 325 mg PO DAILY 03/11/16 05/14/19 History Elemental)] Levothyroxine Sodium [Synthroid] 125 mcg PO DAILY 06/14/18 05/14/19 History Hydroxyurea [Hydrea] 1,000 mg PO SUSA 01/06/19 05/14/19 History Hydroxyurea [Hydrea] 500 mg PO MOTUWETHFR 01/06/19 05/14/19 History Vit C/E/Zn/Coppr/Lutein/Zeaxan 2 cap PO DAILY 01/06/19 05/14/19 History [Preservision Areds 2 Softgel] traMADol HCL [Ultram] 50 mg PO Q6HR PRN 01/06/19 05/14/19 History Aspirin 325 mg PO DAILY tab 01/08/19 05/14/19 Rx Clopidogrel [Plavix] 75 mg PO DAILY tab 01/08/19 05/14/19 Rx Losartan [Cozaar] 50 mg PO DAILY #30 tab 01/08/19 05/14/19 Rx amLODIPine [Norvasc] 10 mg PO DAILY tab 01/08/19 05/14/19 Rx Insulin Glargine [Lantus] 35 unit SQ DAILY 03/14/19 05/14/19 History Carvedilol [Coreg] 3.125 mg PO BID 03/16/19 05/14/19 History Atorvastatin [Lipitor] 80 mg PO HS 05/14/19 05/14/19 History Gabapentin [Neurontin] 300 mg PO QID 05/14/19 05/14/19 History Allergies Allergy/AdvReac Type Severity Reaction Status Date / Time No Known Allergies Allergy Verified 05/14/19 09:33 Surgical - Exam Vital Signs Temp Pulse Resp BP Pulse Ox 98.1 F 66 18 176/73 100 05/14/19 09:03 05/14/19 09:03 05/14/19 09:03 05/14/19 09:03 05/14/19 09:03 Results - Labs 05/15/19 10:04 05/15/19 10:04 Abnormal Lab Results - Last 24 Hours (Table) 05/14/19 05/14/19 05/15/19 Range/Units 17:14 20:54 06:56 RBC (4.30-5.90) m/uL Hgb (13.0-17.5) gm/dL Hct (39.0-53.0) % MCV (80.0-100.0) fL MCH (25.0-35.0) pg Plt Count (150-450) k/uL Lymphocytes # (1.0-4.8) k/uL Macrocytosis Glucose (74-99) mg/dL POC Glucose (mg/dL) 156 H 174 H 101 H (75-99) mg/dL HDL Cholesterol (40-60) mg/dL 05/15/19 05/15/19 Range/Units 10:04 10:04 RBC 2.38 L (4.30-5.90) m/uL Hgb 9.1 L (13.0-17.5) gm/dL Hct 29.1 L (39.0-53.0) % MCV 122.5 H (80.0-100.0) fL MCH 38.4 H (25.0-35.0) pg Plt Count 520 H (150-450) k/uL Lymphocytes # 0.6 L (1.0-4.8) k/uL Macrocytosis Marked A Glucose 140 H (74-99) mg/dL POC Glucose (mg/dL) (75-99) mg/dL HDL Cholesterol 26 L (40-60) mg/dL Microbiology - Last 24 Hours (Table) 05/14/19 12:49 Blood Culture - Preliminary Blood No Growth after 24 hours Diabetes panel 05/15/19 Range/Units 10:04 Sodium 139 (137-145) mmol/L Potassium 3.9 (3.5-5.1) mmol/L Chloride 107 (98-107) mmol/L Carbon Dioxide 23 (22-30) mmol/L BUN 12 (9-20) mg/dL Creatinine 1.04 (0.66-1.25) mg/dL Glucose 140 H (74-99) mg/dL Calcium 8.8 (8.4-10.2) mg/dL Triglycerides 108 (<150) mg/dL HDL Cholesterol 26 L (40-60) mg/dL Calcium panel 05/15/19 Range/Units 10:04 Calcium 8.8 (8.4-10.2) mg/dL Pituitary panel 05/15/19 Range/Units 10:04 Sodium 139 (137-145) mmol/L Potassium 3.9 (3.5-5.1) mmol/L Chloride 107 (98-107) mmol/L Carbon Dioxide 23 (22-30) mmol/L BUN 12 (9-20) mg/dL Creatinine 1.04 (0.66-1.25) mg/dL Glucose 140 H (74-99) mg/dL Calcium 8.8 (8.4-10.2) mg/dL Adrenal panel 05/15/19 Range/Units 10:04 Sodium 139 (137-145) mmol/L Potassium 3.9 (3.5-5.1) mmol/L Chloride 107 (98-107) mmol/L Carbon Dioxide 23 (22-30) mmol/L BUN 12 (9-20) mg/dL Creatinine 1.04 (0.66-1.25) mg/dL Glucose 140 H (74-99) mg/dL Calcium 8.8 (8.4-10.2) mg/dL
[2019-05-15 20:39] LABS: Glucose,Whole Blood 216 mg/dL (75-99)
[2019-05-15] MEDS: ATORVASTATIN 80 MG TAB PO SCH (21:24)
[2019-05-16] MEDS: PIPERACILLIN-TAZOBACTAM 3.375 GM in SODIUM CHLORIDE 0.9% 100 ML IVPB SCH ×4 (00:01→23:13)
[2019-05-16] MEDS: LEVOTHYROXINE 125 MCG TAB PO SCH (06:11)
[2019-05-16 07:04] LABS: Glucose,Whole Blood 159 mg/dL (75-99)
[2019-05-16] MEDS: amLODIPine 10 MG TAB PO SCH (07:51)
[2019-05-16] MEDS: CLOPIDOGREL 75 MG TAB PO SCH (07:52)
[2019-05-16] MEDS: GABAPENTIN 300 MG CAP PO SCH ×4 (07:52→20:48)
[2019-05-16] MEDS: NICOTINE 14MG/24HR PATCH TRANSDERM SCH (07:52)
[2019-05-16] MEDS: VIT A,C & E-LUTEIN-MINERALS 1 EACH TAB PO SCH (07:52)
[2019-05-16] MEDS: LOSARTAN 50 MG TAB PO SCH (07:52)
[2019-05-16] MEDS: CARVEDILOL 3.125 MG TAB PO SCH ×2 (07:52→15:05)
[2019-05-16] MEDS: HYDROXYUREA 500 MG CAP PO SCH (07:52)
[2019-05-16] MEDS: FERROUS SULFATE 325 MG TAB PO SCH (07:52)
[2019-05-16] MEDS: ASPIRIN 325 MG TAB PO SCH (07:52)
[2019-05-16] MEDS: HEPARIN SODIUM,PORCINE 5,000 UNIT/ML 1 ML VIAL SQ SCH ×2 (07:53→20:48)
[2019-05-16] MEDS: INSULIN DETEMIR (LEVEMIR) 100 UNIT/ML SYR SQ SCH (07:53)
[2019-05-16] MEDS ORDERED: VANCOMYCIN TROUGH DUE 1 EACH MISC MISCELLANE ONE (11:00)
[2019-05-16] MEDS: VANCOMYCIN 1,250 MG in SODIUM CHLORIDE 0.9% 250 ML IVPB SCH ×3 (11:41)
[2019-05-16 11:47] LABS: Basophils % (A) 0 %; Eosinophils # (A) 0.5 k/uL (0-0.7); Eosinophils % (A) 7 %; HCT 28.6 % (39.0-53.0); Hypochromasia Slight; Lymphocytes # (A) 0.7 k/uL (1.0-4.8); Lymphocytes % (A) 9 %; MCH 38.6 pg (25.0-35.0); MCHC 31.5 g/dL (31.0-37.0); MCV 122.6 fL (80.0-100.0); Macrocytosis Marked; Monocytes # (A) 0.5 k/uL (0-1.0); Monocytes % (A) 6 %; Neutrophils # (A) 5.5 k/uL (1.3-7.7); Neutrophils % (A) 75 %; Platelet Count 558 k/uL (150-450); RBC 2.33 m/uL (4.30-5.90); WBC 7.4 k/uL (3.8-10.6)
[2019-05-16 12:16] LABS: Calcium 8.6 mg/dL (8.4-10.2)
[2019-05-16 12:47] LABS: Glucose,Whole Blood 283 mg/dL (75-99)
--- NOTE | 2019-05-16 16:30 | P.PN ---
Subjective Progress Note Date: 05/16/19 Principal diagnosis: This is a 68 year old male that was admitted to the hospital for gangrene of the right little toe. Patient has a history of poorly controlled diabetes type 2, hypertension, and hyperlipidemia. PE patient is still awaiting for consult with infectious disease at this time. Patient is also awaiting determination from vascular surgery if they are going to be removing the toe on the right foot or not. Patient denies any shortness of breath, chest pain, or fevers at this time. Patient's blood pressure is fluctuating and blood sugars have been elevated as well. Objective - Vital Signs Vital signs: Vital Signs Temp 98.7 F 05/16/19 14:06 Pulse 65 05/16/19 14:06 Resp 16 05/16/19 14:06 BP 188/70 05/16/19 14:06 Pulse Ox 96 05/16/19 14:06 Intake & Output 05/15/19 05/16/19 05/16/19 18:59 06:59 18:59 Weight 76 kg 76 kg Other: Voiding Method Bedside Commode Bedside Commode Bedside Commode Diaper Diaper Diaper Incontinent Incontinent Incontinent # Voids 2 4 2 - Exam HEENT: Head is atraumatic, normocephalic. Pupils equal, round. Sclerae is anicteric. NECK: Supple. No JVD. No lymphadenopathy. No thyromegaly. LUNGS: Clear to auscultation. No wheezes or rhonchi. HEART: Regular rate and rhythm. No murmur. ABDOMEN: Soft. non-tender. Bowel sounds are present. No masses. EXTREMITIES: No pedal edema. right pinky toe is black with no perfusion noted. NEUROLOGICAL: Patient is awake, alert and oriented x3. Cranial nerves 2 through 12 are grossly intact. - Constitutional General appearance: Present: cooperative, no acute distress - Labs CBC & Chem 7: 05/16/19 11:17 05/16/19 11:17 Labs: Abnormal Lab Results - Last 24 Hours (Table) 05/15/19 05/16/19 05/16/19 Range/Units 20:38 07:02 11:17 RBC (4.30-5.90) m/uL Hgb (13.0-17.5) gm/dL Hct (39.0-53.0) % MCV (80.0-100.0) fL MCH (25.0-35.0) pg Plt Count (150-450) k/uL Lymphocytes # (1.0-4.8) k/uL Macrocytosis Chloride 111 H (98-107) mmol/L Glucose 231 H (74-99) mg/dL POC Glucose (mg/dL) 216 H 159 H (75-99) mg/dL 05/16/19 05/16/19 Range/Units 11:17 12:01 RBC 2.33 L (4.30-5.90) m/uL Hgb 9.0 L (13.0-17.5) gm/dL Hct 28.6 L (39.0-53.0) % MCV 122.6 H (80.0-100.0) fL MCH 38.6 H (25.0-35.0) pg Plt Count 558 H (150-450) k/uL Lymphocytes # 0.7 L (1.0-4.8) k/uL Macrocytosis Marked A Chloride (98-107) mmol/L Glucose (74-99) mg/dL POC Glucose (mg/dL) 283 H (75-99) mg/dL Microbiology - Last 24 Hours (Table) 05/14/19 12:49 Blood Culture - Preliminary Blood No Growth after 48 hours Assessment and Plan Assessment: 1. Acute gangrene of the right fifth toe as well as diabetic gangrene 2. Peripheral vascular disease 3. Peripheral neuropathy secondary to diabetes 4. Anemia, macrocytic anemia possibly nutritional 5. Diabetes mellitus type 2, uncontrolled with hypoglycemia 6. History of coronary artery disease 7. History of cerebrovascular accident, TIA 8. Hypertension 9. Hyperlipidemia 10. Myocardial infarction 11. History of pneumonia 12. History of seizure disorder 13. Hypothyroidism 14. History of iron deficiency anemia 15. History of agent orange exposure 16. History of coronary artery disease, coronary artery bypass grafting stent 17. History of TAVR 18. History of continued ongoing nicotine dependence Recommendations and discussion: In this 68-year-old male is recommended to continue current medications and continue symptomatic treatment. Will monitor closely and continue with IV antibiotics. Discuss with the patient in detail and length regarding the need to correlate care with vascular surgery on the possible removal of the right fifth toe. We'll continue to monitor blood sugars and lab work. Guarded prognosis because of multiple complex medical issues. Further recommendations to follow. Patient is requesting to go home but has agreed to wait for vascular surgery comments.
[2019-05-16 17:24] LABS: Glucose,Whole Blood 166 mg/dL (75-99)
[2019-05-16] MEDS: HYDROcodone/APAP 5-325MG 1 EACH TAB PO PRN (18:31)
[2019-05-16] MEDS: ATORVASTATIN 80 MG TAB PO SCH (20:48)
[2019-05-16 20:51] LABS: Glucose,Whole Blood 138 mg/dL (75-99)
[2019-05-16] MEDS: ALPRAZolam 0.25 MG TAB PO PRN (21:39)
[2019-05-16] MEDS: cloNIDine HCL 0.1 MG TAB PO PRN (22:18)
[2019-05-17] MEDS: VANCOMYCIN 1,250 MG in SODIUM CHLORIDE 0.9% 250 ML IVPB SCH ×2 (03:54→20:36)
[2019-05-17] MEDS: LEVOTHYROXINE 125 MCG TAB PO SCH (05:49)
[2019-05-17 07:22] LABS: Glucose,Whole Blood 138 mg/dL (75-99)
--- NOTE | 2019-05-17 07:48 | P.PN ---
Subjective Progress Note Date: 05/16/19 Principal diagnosis: Right 5th toe gangrene Patient seen and examined. No changes overnight. He states wanting to go home if nothing is going to be done. He denies any fevers, chills, nausea, vomiting, chest pain or shortness of breath. His pain at the toe is slightly better but still having pain to the touch. Objective - Vital Signs Vital signs: Vital Signs Temp 97.5 F L 05/17/19 04:40 Pulse 56 L 05/17/19 04:40 Resp 20 05/17/19 04:40 BP 179/68 05/17/19 04:40 Pulse Ox 98 05/17/19 04:40 Intake & Output 05/16/19 05/17/19 05/17/19 18:59 06:59 18:59 Intake Total 300 Balance 300 Weight 76.7 kg Intake: Oral 300 Other: Voiding Method Bedside Commode Bedside Commode Diaper Diaper Incontinent Incontinent # Voids 2 3 - Exam right 5th toe gangrene with TTP. No drainage. Mild edema, with minimal avis thema. Non palpable popliteal, dp or pt pulses. Diminished femoral pulse on the right. - Constitutional General appearance: Present: cooperative, mild distress - EENT Eyes: Present: EOMI, PERRLA - Respiratory Respiratory: bilateral: CTA - Cardiovascular Rhythm: regular - Psychiatric Psychiatric: Present: A&O x's 3 - Labs CBC & Chem 7: 05/16/19 11:17 05/16/19 11:17 Labs: Abnormal Lab Results - Last 24 Hours (Table) 05/16/19 05/16/19 05/16/19 Range/Units 11:17 11:17 12:01 RBC 2.33 L (4.30-5.90) m/uL Hgb 9.0 L (13.0-17.5) gm/dL Hct 28.6 L (39.0-53.0) % MCV 122.6 H (80.0-100.0) fL MCH 38.6 H (25.0-35.0) pg Plt Count 558 H (150-450) k/uL Lymphocytes # 0.7 L (1.0-4.8) k/uL Macrocytosis Marked A Chloride 111 H (98-107) mmol/L Glucose 231 H (74-99) mg/dL POC Glucose (mg/dL) 283 H (75-99) mg/dL 05/16/19 05/16/19 05/17/19 Range/Units 17:22 20:34 07:06 RBC (4.30-5.90) m/uL Hgb (13.0-17.5) gm/dL Hct (39.0-53.0) % MCV (80.0-100.0) fL MCH (25.0-35.0) pg Plt Count (150-450) k/uL Lymphocytes # (1.0-4.8) k/uL Macrocytosis Chloride (98-107) mmol/L Glucose (74-99) mg/dL POC Glucose (mg/dL) 166 H 138 H 138 H (75-99) mg/dL Microbiology - Last 24 Hours (Table) 05/14/19 12:49 Blood Culture - Preliminary Blood No Growth after 48 hours Assessment and Plan Assessment: 1. Right 5th toe gangrene 2. Severe PAD with rest pain and gangrene Chung Classification 5 3. DM Plan: Discussed angiogram with Dr. House- no indication for endovascular intervention. The patient will need a right femoral endarterectomy with possible iliac stenting if the inflow is poor with SFA remote endarterectomy with attempted revascularization of the popliteal artery vs. femoral- anterior tibial artery bypass. We will order vein mapping- if unable to use vein we will then need to utilize cryovein for the bypass. Hopefully we will be able to perform the surgery this weekend. We will also amputate the toe at the same time.
[2019-05-17] MEDS: amLODIPine 10 MG TAB PO SCH (08:14)
[2019-05-17] MEDS: CARVEDILOL 3.125 MG TAB PO SCH ×2 (08:14→17:47)
[2019-05-17] MEDS: HEPARIN SODIUM,PORCINE 5,000 UNIT/ML 1 ML VIAL SQ SCH ×2 (08:14→20:37)
[2019-05-17] MEDS: VIT A,C & E-LUTEIN-MINERALS 1 EACH TAB PO SCH (08:14)
[2019-05-17] MEDS: CLOPIDOGREL 75 MG TAB PO SCH (08:14)
[2019-05-17 08:15] LABS: Basophils % (A) 1 %; Eosinophils % (A) 13 %; HCT 30.7 % (39.0-53.0); HGB 9.6 gm/dL (13.0-17.5); Hypochromasia Marked; Lymphocytes # (A) 0.8 k/uL (1.0-4.8); Lymphocytes % (A) 11 %; MCH 39.8 pg (25.0-35.0); MCHC 31.3 g/dL (31.0-37.0); Macrocytosis Marked; Monocytes # (A) 0.5 k/uL (0-1.0); Monocytes % (A) 7 %; Neutrophils # (A) 5.1 k/uL (1.3-7.7); Neutrophils % (A) 66 %; Platelet Count 521 k/uL (150-450); RBC 2.42 m/uL (4.30-5.90); RDW 14.1 % (11.5-15.5); WBC 7.7 k/uL (3.8-10.6)
[2019-05-17] MEDS: NICOTINE 14MG/24HR PATCH TRANSDERM SCH ×2 (08:15→08:17)
[2019-05-17] MEDS: PIPERACILLIN-TAZOBACTAM 3.375 GM in SODIUM CHLORIDE 0.9% 100 ML IVPB SCH ×3 (08:15→23:41)
[2019-05-17] MEDS: ASPIRIN 325 MG TAB PO SCH (08:15)
[2019-05-17] MEDS: LOSARTAN 50 MG TAB PO SCH ×2 (08:15→20:38)
[2019-05-17] MEDS: FERROUS SULFATE 325 MG TAB PO SCH (08:15)
[2019-05-17] MEDS: HYDROXYUREA 500 MG CAP PO SCH (08:15)
[2019-05-17 08:18] LABS: Calcium 8.9 mg/dL (8.4-10.2); Potassium 4.1 mmol/L (3.5-5.1)
[2019-05-17] MEDS: INSULIN DETEMIR (LEVEMIR) 100 UNIT/ML SYR SQ SCH (08:21)
[2019-05-17] MEDS: GABAPENTIN 300 MG CAP PO SCH ×4 (08:21→20:38)
[2019-05-17] MEDS: cloNIDine HCL 0.1 MG TAB PO PRN (10:25)
--- NOTE | 2019-05-17 11:10 | P.PN ---
Subjective Progress Note Date: 05/17/19 Patient seen and examined. Feels overall better today. Anxious to leave the hospital Objective - Vital Signs Vital signs: Vital Signs Temp 97.5 F L 05/17/19 04:40 Pulse 56 L 05/17/19 04:40 Resp 20 05/17/19 04:40 BP 198/65 05/17/19 10:12 Pulse Ox 98 05/17/19 04:40 Intake & Output 05/16/19 05/17/19 05/17/19 18:59 06:59 18:59 Intake Total 300 Balance 300 Weight 76.7 kg Intake: Oral 300 Other: Voiding Method Bedside Commode Bedside Commode Diaper Diaper Incontinent Incontinent # Voids 2 3 - Exam No acute distress, sitting in chair comfortably. Patient appears more comfortable overall No respiratory distress. Heart regular Abdomen soft Bilateral lower extremities warm. The right fifth toe with worsened gangrene, remains dry. Minimal cellulitic changes surrounding - Labs CBC & Chem 7: 05/17/19 07:36 05/17/19 07:36 Labs: Abnormal Lab Results - Last 24 Hours (Table) 05/16/19 05/16/19 05/16/19 Range/Units 11:17 11:17 12:01 RBC 2.33 L (4.30-5.90) m/uL Hgb 9.0 L (13.0-17.5) gm/dL Hct 28.6 L (39.0-53.0) % MCV 122.6 H (80.0-100.0) fL MCH 38.6 H (25.0-35.0) pg Plt Count 558 H (150-450) k/uL Lymphocytes # 0.7 L (1.0-4.8) k/uL Eosinophils # (0-0.7) k/uL Macrocytosis Marked A Chloride 111 H (98-107) mmol/L Carbon Dioxide (22-30) mmol/L BUN (9-20) mg/dL Glucose 231 H (74-99) mg/dL POC Glucose (mg/dL) 283 H (75-99) mg/dL 05/16/19 05/16/19 05/17/19 Range/Units 17:22 20:34 07:06 RBC (4.30-5.90) m/uL Hgb (13.0-17.5) gm/dL Hct (39.0-53.0) % MCV (80.0-100.0) fL MCH (25.0-35.0) pg Plt Count (150-450) k/uL Lymphocytes # (1.0-4.8) k/uL Eosinophils # (0-0.7) k/uL Macrocytosis Chloride (98-107) mmol/L Carbon Dioxide (22-30) mmol/L BUN (9-20) mg/dL Glucose (74-99) mg/dL POC Glucose (mg/dL) 166 H 138 H 138 H (75-99) mg/dL 05/17/19 05/17/19 Range/Units 07:36 07:36 RBC 2.42 L (4.30-5.90) m/uL Hgb 9.6 L (13.0-17.5) gm/dL Hct 30.7 L (39.0-53.0) % MCV 127.0 H (80.0-100.0) fL MCH 39.8 H (25.0-35.0) pg Plt Count 521 H (150-450) k/uL Lymphocytes # 0.8 L (1.0-4.8) k/uL Eosinophils # 1.0 H (0-0.7) k/uL Macrocytosis Marked A Chloride 114 H (98-107) mmol/L Carbon Dioxide 21 L (22-30) mmol/L BUN 8 L (9-20) mg/dL Glucose 117 H (74-99) mg/dL POC Glucose (mg/dL) (75-99) mg/dL Microbiology - Last 24 Hours (Table) 05/14/19 12:49 Blood Culture - Preliminary Blood No Growth after 48 hours Assessment and Plan Assessment: 1. Right lower extremity 5th toe dry gangrene 2. Severe atherosclerotic disease of the bilateral lower extremities 3. Insulin-dependent diabetes mellitus 3. Coronary artery disease 4. Atrial fibrillation 5. Anemia 6. History of cerebellar stroke Plan: Previous films were reviewed. There is no availability of endovascular therapy. Long discussion was had with the patient regarding going forth with a bypass. We will order vein mapping ultrasound to evaluate his saphenous veins for possible autograft. If no adequate vein is available we will need to obtain a CryoVein for bypass. Hopefully we will be able to do this as soon as Tuesday, this is all dependent on the conduit we need to use as CryoVein would need to be ordered. At the same time of the intervention we would indicate the fifth toe. Discussion was had with the patient and his regarding all options. They seem to understand and are willing to proceed.
[2019-05-17 11:56] LABS: Glucose,Whole Blood 162 mg/dL (75-99)
[2019-05-17] MEDS: hydrALAZINE HCL 25 MG TAB PO SCH ×2 (14:04→20:38)
[2019-05-17] MEDS: HYDROCHLOROTHIAZIDE 25 MG TAB PO SCH (14:04)
[2019-05-17] MEDS: hydrALAZINE HCL 20 MG/ML 1 ML VIAL IVP PRN (18:04)
--- NOTE | 2019-05-17 18:25 | PN ---
PROGRESS NOTE DATE OF SERVICE: 05/17/2019. This 68-year-old gentleman who was admitted with acute gangrene of the right 5th toe as well as diabetic gangrene also had significant peripheral vascular disease. Dr. Resendiz is planning possible vascular bypass procedure for the leg. Cardiology consultation has been requested as a preop because of the multiple cardiac issues. However, the patient is fairly stable at this time. There is no availability endovascular therapy as mentioned as noted in the vascular consultation. No chest pain. No palpitations. No fever. EXAM: Alert and oriented times three. Pulse is 58, blood pressure 117/60, respirations 16, temperature 98.4, pulse ox 97% on room air. HEENT: Conjunctivae normal. NECK: No JVD. CARDIOVASCULAR: S1, S2 muffled. RESPIRATIONS: Breath sounds diminished in the bases. A few scattered rhonchi and crackles. Expiratory wheezing. ABDOMEN: Soft, nontender. LEGS: No edema. No swelling. Left little toe gangrene. NERVOUS SYSTEM: No focal deficits. LABS: WBC 7.7, hemoglobin 9.6, sodium 140, potassium 4.1. ASSESSMENT: 1. Acute gangrene of the right 5th toe as well as diabetic gangrene. 2. Peripheral vascular disease. 3. Peripheral neuropathy secondary to diabetes type 2. 4. Anemia, macrocytic anemia, possibly nutritional. 5. Diabetes type 2, uncontrolled with hypoglycemia. 6. History of coronary artery disease. 7. History of cerebrovascular accident/ transient ischemic attack. 8. Hypertension. 9. Hyperlipidemia. 10.History of myocardial infarction. 11.History of pneumonia. 12.History of seizure disorder. 13.Hypothyroidism. 14.History of iron deficiency anemia. 15.History of Agent [place] exposure. 16.History of coronary artery disease/ coronary artery bypass grafting. 17.History of TAVR. 18.History of continued ongoing nicotine dependence. RECOMMENDATIONS AND DISCUSSION: Recommend to continue current medications, management and symptomatic treatment. As mentioned earlier, the patient is medically stable. The patient will be cleared for surgery once seen by Cardiology. Otherwise, I would recommend repeat labs. Hydralazine has been added to the current regimen and use p.r.n. medications. Continue to monitor. Further recommendations to follow. MMODL / IJN: [id number] /
--- NOTE | 2019-05-17 20:25 | CONS ---
CONSULTATION Mr. Lomas is a 68-year-old male with a known history of coronary artery disease status post coronary artery bypass grafting and history of TAVR has been followed by Dr. Yin and has underwent repeat cardiac catheterization in December of this year and at that time was found to have a patent SANTOS to LAD, patent saphenous vein graft to the right coronary artery and to the obtuse marginal branch 1 and 2. An echocardiogram performed at the same time has shown a ejection fraction 50% to 55% with normal functioning of his TAVR. He presented with progressive discomfort in the right toe with evidence of gangrene. He was evaluated by Dr. Resendiz and has known history of severe obstructive peripheral disease and scheduled to undergo surgical revascularization. The patient denies any chest pain. His breathing has been stable. He denies any dizziness or palpitation. He denies any PND or orthopnea. His coronary risk factors are remarkable for smoking, which he stopped 3 months ago, history of diabetes, hypertension, and hyperlipidemia. MEDICATIONS: Include aspirin once a day, Lipitor 80 mg daily, Coreg 3.125 mg twice a day, Plavix 75 mg daily, gabapentin, Hydrea, Synthroid, Cozaar 50 mg daily. REVIEW OF SYSTEMS: RESPIRATORY SYSTEM: He denies any recent wheezing or cough. GI SYSTEM: No recent GI bleed. No peptic ulcer disease. SYSTEM: No dysuria or hematuria. NERVOUS SYSTEM: No stroke or seizure. PHYSICAL EXAMINATION: 68-year-old male, alert, oriented, in no apparent distress. Blood pressure running in the 170s to 180s with heart rate in the 60s. HEAD: Normocephalic. EYES: Sclerae anicteric. NECK: Good upstroke, no bruit, no venous distention. LUNGS: Clear to auscultation. HEART: Regular rhythm S1, S2. No S3 with systolic murmur heard at the base. No diastolic murmur. No rub. ABDOMEN: Soft, nontender. Positive bowel sounds. No organomegaly. EXTREMITIES: No edema. Gangrenous right first toe with decreased distal pulses. LAB DATA: Lab data revealed a hemoglobin 9.6, platelets 521. BUN and creatinine of 18 and 1.1. Potassium 4.1. His EKG revealed a sinus mechanism with left axis deviation, left ventricular hypertrophy, occasional PACs and nonspecific ST-T wave changes with poor R progression. IMPRESSION: 1. Severe peripheral vascular disease with gangrenous toe scheduled for revascularization and amputation of the toe. 2. Status post coronary artery bypass grafting stable with his cardiac catheterization done in December of this year that showed patent grafts. 3. Status post TAVR, stable. 4. Hypertension, elevated. 5. Hyperlipidemia. 6. Diabetes mellitus. 7. History of tobacco use. RECOMMENDATION: From the cardiac standpoint I will adjust his antihypertensive regimen to optimize his treatment. Continue the rest of his medical regimen and depending on his progress further recommendation will be made. From the cardiac standpoint, he is stable to proceed with scheduled surgical intervention. He is stable from the cardiac standpoint without any evidence of acute ischemia or congestive heart failure. Thank you for this consult. We will follow with you. LONDON / TRACE: [id number] / CRISTEL
[2019-05-17] MEDS: ALPRAZolam 0.25 MG TAB PO PRN (20:38)
[2019-05-17] MEDS: ATORVASTATIN 80 MG TAB PO SCH (20:38)
[2019-05-18] MEDS: LEVOTHYROXINE 125 MCG TAB PO SCH (05:29)
[2019-05-18 07:26] LABS: Glucose,Whole Blood 93 mg/dL (75-99)
[2019-05-18 08:45] LABS: Basophils % (A) 1 %; Eosinophils # (A) 0.9 k/uL (0-0.7); Eosinophils % (A) 13 %; HCT 29.5 % (39.0-53.0); HGB 9.5 gm/dL (13.0-17.5); Hypochromasia Slight; Lymphocytes # (A) 0.9 k/uL (1.0-4.8); Lymphocytes % (A) 13 %; MCH 39.7 pg (25.0-35.0); MCHC 32.3 g/dL (31.0-37.0); MCV 123.2 fL (80.0-100.0); Macrocytosis Marked; Mean Platelet Volume 7.4; Monocytes # (A) 0.5 k/uL (0-1.0); Monocytes % (A) 7 %; Neutrophils # (A) 4.5 k/uL (1.3-7.7); Neutrophils % (A) 65 %; Platelet Count 625 k/uL (150-450); RBC 2.39 m/uL (4.30-5.90); RDW 14.4 % (11.5-15.5)
[2019-05-18 09:01] LABS: Potassium 3.9 mmol/L (3.5-5.1)
[2019-05-18] MEDS: VIT A,C & E-LUTEIN-MINERALS 1 EACH TAB PO SCH (09:12)
[2019-05-18] MEDS: CLOPIDOGREL 75 MG TAB PO SCH (09:12)
[2019-05-18] MEDS: HYDROcodone/APAP 5-325MG 1 EACH TAB PO PRN ×2 (09:12→15:14)
[2019-05-18] MEDS: HEPARIN SODIUM,PORCINE 5,000 UNIT/ML 1 ML VIAL SQ SCH ×2 (09:12→21:03)
[2019-05-18] MEDS: CARVEDILOL 3.125 MG TAB PO SCH ×2 (09:13→17:25)
[2019-05-18] MEDS: FERROUS SULFATE 325 MG TAB PO SCH (09:13)
[2019-05-18] MEDS: HYDROCHLOROTHIAZIDE 25 MG TAB PO SCH (09:13)
[2019-05-18] MEDS: LOSARTAN 50 MG TAB PO SCH ×2 (09:13→21:02)
[2019-05-18] MEDS: ASPIRIN 325 MG TAB PO SCH (09:13)
[2019-05-18] MEDS: INSULIN DETEMIR (LEVEMIR) 100 UNIT/ML SYR SQ SCH (09:13)
[2019-05-18] MEDS: GABAPENTIN 300 MG CAP PO SCH ×4 (09:13→21:02)
[2019-05-18] MEDS: amLODIPine 10 MG TAB PO SCH (09:13)
[2019-05-18] MEDS: hydrALAZINE HCL 25 MG TAB PO SCH (09:13)
[2019-05-18] MEDS: HYDROXYUREA 500 MG CAP PO SCH (09:14)
[2019-05-18] MEDS: PIPERACILLIN-TAZOBACTAM 3.375 GM in SODIUM CHLORIDE 0.9% 100 ML IVPB SCH ×3 (09:14→23:19)
[2019-05-18 09:16] LABS: Polychromasia Present
[2019-05-18 09:17] LABS: Large Platelets Present
[2019-05-18] MEDS: NICOTINE 14MG/24HR PATCH TRANSDERM SCH (09:36)
[2019-05-18] MEDS: hydrALAZINE HCL 20 MG/ML 1 ML VIAL IVP PRN ×2 (11:00→17:25)
[2019-05-18 11:40] LABS: Glucose,Whole Blood 115 mg/dL (75-99)
[2019-05-18] MEDS: VANCOMYCIN 1,250 MG in SODIUM CHLORIDE 0.9% 250 ML IVPB SCH (12:58)
--- NOTE | 2019-05-18 14:00 | P.PN ---
Subjective Progress Note Date: 05/18/19 Patient seen and examined. No issues overnight Objective - Vital Signs Vital signs: Vital Signs Temp 98.4 F 05/18/19 07:08 Pulse 62 05/18/19 12:42 Resp 16 05/18/19 07:08 BP 163/55 05/18/19 12:42 Pulse Ox 99 05/18/19 07:08 Intake & Output 05/17/19 05/18/19 05/18/19 18:59 06:59 18:59 Intake Total 540 Balance 540 Weight 76.7 kg Intake: Oral 540 Other: Voiding Method Diaper Incontinent # Voids 3 1 - Exam No acute distress, sitting in chair comfortably. No respiratory distress. Heart regular Abdomen soft Bilateral lower extremities warm. The right fifth toe dry gangrene. Minimal cellulitic changes surrounding - Labs CBC & Chem 7: 05/18/19 07:38 05/18/19 07:38 Labs: Abnormal Lab Results - Last 24 Hours (Table) 05/18/19 05/18/19 05/18/19 Range/Units 07:38 07:38 11:36 RBC 2.39 L (4.30-5.90) m/uL Hgb 9.5 L (13.0-17.5) gm/dL Hct 29.5 L (39.0-53.0) % MCV 123.2 H (80.0-100.0) fL MCH 39.7 H (25.0-35.0) pg Plt Count 625 H (150-450) k/uL Lymphocytes # 0.9 L (1.0-4.8) k/uL Eosinophils # 0.9 H (0-0.7) k/uL Macrocytosis Marked A Chloride 112 H (98-107) mmol/L Creatinine 1.28 H (0.66-1.25) mg/dL POC Glucose (mg/dL) 115 H (75-99) mg/dL Microbiology - Last 24 Hours (Table) 05/14/19 12:49 Blood Culture - Preliminary Blood No Growth after 72 hours - Imaging and Cardiology Bilateral lower extremity vein mapping is reviewed. It is appear to be adequate size vein on the right saphenous. Previously harvested left saphenous vein Assessment and Plan Assessment: 1. Right lower extremity 5th toe dry gangrene 2. Severe atherosclerotic disease of the bilateral lower extremities 3. Insulin-dependent diabetes mellitus 3. Coronary artery disease 4. Atrial fibrillation 5. Anemia 6. History of cerebellar stroke Plan: Vein mapping was performed. Patient has been cleared by cardiology for intervention. We will plan on going forth with a right femoral to anterior tibial bypass and fifth toe amputation on 05/19/2019. Risks and benefits were discussed with the patient who seemingly understands. Preoperative orders have been initiated
[2019-05-18 16:58] LABS: Glucose,Whole Blood 304 mg/dL (75-99)
--- NOTE | 2019-05-18 17:09 | P.PN ---
Subjective Progress Note Date: 05/18/19 Principal diagnosis: This is a 68-year-old male who was admitted with acute gangrene of the right fifth toe as well as diabetic gangrene. Patient has a history of significant peripheral vascular disease. Patient is awaiting for a possible amputation of the right fifth toe with Dr. Resendiz on Tuesday. Awaiting a cardiology consult at this time due to his multiple cardiac issues. The patient is stable with fluctuating blood pressures and blood sugars. The patient is being closely monitored at this time. Patient is denying any chest pain, shortness of breath, palpitations, or fever. Patient is having pain of the right foot otherwise in no acute distress. Physical exam: On exam patient is alert and oriented 3 and slightly agitated due to the pain of his right foot. Patient was just given pain medications by mouth and awaiting for relief. Vital signs are currently stable. HEENT: Conjunctiva normal, EOMs intact Neck: No jugular vein distention, supple Cardiovascular: S1, S2 muffled Respiratory: Breath sounds diminished in the bases. Expiratory wheezing noted on exam with some fine crackles. Abdomen: Soft, nontender Legs: No swelling or edema noted, right fifth toe is black in color Nervous system: No focal deficits Labs: WBC 7.0, sodium 142, potassium 3.9, blood glucose 115 Assessment: 1. Acute gangrene of the right fifth toe as well as diabetic gangrene 2. Peripheral vascular disease 3. 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 Anemia, macrocytic anemia, possibly nutritional 5. Diabetes type 2, uncontrolled with hypoglycemia 6. History of coronary artery disease 7. History of CVA, TIA 8. Hypertension 9. Hyperlipidemia 10. History of myocardial infarction 11. History of pneumonia 12. History of seizure disorder 13. Hypothyroidism 14. History of iron deficiency anemia 15. History of agent orange exposure 16. History of coronary artery disease, coronary artery bypass grafting 17. History of TAVR 18. History of continued ongoing nicotine dependence Recommendations and discussion: Recommend to continue with current medications, management, and symptomatic treatment. The patient is currently medically stable and awaiting for amputation of the right fifth toe. Cardiology consultation is pending. Ot wise the patient is currently medically cleared for surgery tomorrow. We will continue to monitor labs. Hydralazine IV push was ordered when necessary for elevated blood pressures. We will continue to monitor. Guarded prognosis. Further recommendations to follow. Objective - Vital Signs Vital signs: Vital Signs Temp 97.8 F 05/18/19 13:53 Pulse 62 05/18/19 13:53 Resp 16 05/18/19 13:53 BP 176/76 05/18/19 13:53 Pulse Ox 96 05/18/19 13:53 Intake & Output 05/17/19 05/18/19 05/18/19 18:59 06:59 18:59 Intake Total 540 540 Balance 540 540 Weight 76.7 kg Intake: Oral 540 540 Other: Voiding Method Diaper Incontinent # Voids 3 1 4 - Constitutional General appearance: Present: cooperative, no acute distress - Labs CBC & Chem 7: 05/18/19 07:38 05/18/19 07:38 Labs: Abnormal Lab Results - Last 24 Hours (Table) 05/18/19 05/18/19 05/18/19 Range/Units 07:38 07:38 11:36 RBC 2.39 L (4.30-5.90) m/uL Hgb 9.5 L (13.0-17.5) gm/dL Hct 29.5 L (39.0-53.0) % MCV 123.2 H (80.0-100.0) fL MCH 39.7 H (25.0-35.0) pg Plt Count 625 H (150-450) k/uL Lymphocytes # 0.9 L (1.0-4.8) k/uL Eosinophils # 0.9 H (0-0.7) k/uL Macrocytosis Marked A Chloride 112 H (98-107) mmol/L Creatinine 1.28 H (0.66-1.25) mg/dL POC Glucose (mg/dL) 115 H (75-99) mg/dL Microbiology - Last 24 Hours (Table) 05/14/19 12:49 Blood Culture - Preliminary Blood No Growth after 96 hours
[2019-05-18] MEDS: traMADol 50 MG TAB PO PRN (19:12)
[2019-05-18 20:47] LABS: Glucose,Whole Blood 282 mg/dL (75-99)
[2019-05-18] MEDS: cloNIDine HCL 0.1 MG TAB PO SCH (21:02)
[2019-05-18] MEDS: hydrALAZINE HCL 50 MG TAB PO SCH (21:02)
[2019-05-18] MEDS: ATORVASTATIN 80 MG TAB PO SCH (21:02)
[2019-05-18] MEDS: INSULIN ASPART (NovoLOG) 100 UNIT/ML VIAL SQ SCH (21:03)
[2019-05-19] MEDS: VANCOMYCIN 1,250 MG in SODIUM CHLORIDE 0.9% 250 ML IVPB SCH ×2 (03:27→21:29)
[2019-05-19] MEDS: LEVOTHYROXINE 125 MCG TAB PO SCH (03:27)
[2019-05-19 07:15] LABS: Glucose,Whole Blood 112 mg/dL (75-99)
[2019-05-19] MEDS: PIPERACILLIN-TAZOBACTAM 3.375 GM in SODIUM CHLORIDE 0.9% 100 ML IVPB SCH ×2 (07:28→16:58)
[2019-05-19] MEDS: CLOPIDOGREL 75 MG TAB PO SCH (07:30)
[2019-05-19] MEDS: ASPIRIN 325 MG TAB PO SCH (07:30)
[2019-05-19] MEDS: FERROUS SULFATE 325 MG TAB PO SCH (07:30)
[2019-05-19] MEDS: INSULIN ASPART (NovoLOG) 100 UNIT/ML VIAL SQ SCH ×4 (07:31→21:34)
[2019-05-19] MEDS: HEPARIN SODIUM,PORCINE 5,000 UNIT/ML 1 ML VIAL SQ SCH ×2 (07:32→21:29)
[2019-05-19 08:41] LABS: Basophils % (A) 0 %; Eosinophils % (A) 11 %; HCT 29.8 % (39.0-53.0); HGB 9.2 gm/dL (13.0-17.5); Hypochromasia Slight; Lymphocytes % (A) 11 %; MCH 37.8 pg (25.0-35.0); MCHC 30.9 g/dL (31.0-37.0); MCV 122.4 fL (80.0-100.0); Macrocytosis Marked; Mean Platelet Volume 7.3; Monocytes # (A) 0.6 k/uL (0-1.0); Monocytes % (A) 7 %; Neutrophils # (A) 6.2 k/uL (1.3-7.7); Neutrophils % (A) 68 %; Platelet Count 599 k/uL (150-450); RBC 2.44 m/uL (4.30-5.90); RDW 14.5 % (11.5-15.5); WBC 9.1 k/uL (3.8-10.6)
[2019-05-19 08:42] LABS: Calcium 8.6 mg/dL (8.4-10.2); Potassium 3.8 mmol/L (3.5-5.1)
[2019-05-19] MEDS ORDERED: HEPARIN SODIUM,PORCINE 10,000 UNIT/ML 1 ML VIAL ONE (08:45)
[2019-05-19] MEDS ORDERED: NEOSTIGMINE 1 MG/ML 10 ML VIAL ONE (08:45)
[2019-05-19] MEDS ORDERED: GLYCOPYRROLATE 0.2 MG/ML 2 ML VIAL ONE (08:45)
[2019-05-19] MEDS ORDERED: PROTAMINE SULFATE 10 MG/ML 5 ML VIAL IV ONE (08:45)
[2019-05-19] MEDS ORDERED: HYDROmorphone (PF) 1 MG/ML ONE (08:45)
[2019-05-19] MEDS ORDERED: DEXAMETHASONE SOD PHOS (MDV) 100 MG/10 ML VIAL ONE (08:45)
[2019-05-19] MEDS ORDERED: PROPOFOL 10 MG/ML 20 ML VIAL IV ONE (08:45)
[2019-05-19] MEDS ORDERED: MIDAZOLAM 2 MG/2 ML VIAL ONE ×2 (08:45)
[2019-05-19] MEDS ORDERED: ePHEDrine SULFATE/0.9% NACL/PF 50 MG/5 ML SYRINGE IV ONE (08:45)
[2019-05-19] MEDS ORDERED: ONDANSETRON 4 MG/2 ML VIAL ONE (08:45)
[2019-05-19] MEDS ORDERED: fentaNYL (PF) 50 MCG/ML 2 ML AMP ONE (08:45)
[2019-05-19] MEDS ORDERED: ROCURONIUM BROMIDE 10 MG/ML 10 ML VIAL IV ONE (08:45)
[2019-05-19] MEDS ORDERED: SODIUM CHLORIDE 0.9% 1,000 ML IV ONE (08:48)
[2019-05-19] MEDS ORDERED: THROMBIN (BOVINE) 5,000 UNIT VIAL TOPICAL ONE (08:48)
[2019-05-19] MEDS ORDERED: GELATIN SPONGE,ABSORB (LARGE) 1 EACH SPONGE TOPICAL ONE (08:48)
[2019-05-19] MEDS ORDERED: ceFAZolin 1,000 MG in SODIUM CHLORIDE 0.9% 1,000 ML IRRIGATION ONE (10:00)
[2019-05-19] MEDS ORDERED: HEPARIN SODIUM,PORCINE 10,000 UNIT in SODIUM CHLORIDE 0.9% 1,000 ML IRRIGATION ONE (10:00)
[2019-05-19] MEDS ORDERED: LACTATED RINGERS 1,000 ML IV ONE ×2 (10:00→14:10)
[2019-05-19] MEDS: CARVEDILOL 3.125 MG TAB PO SCH ×2 (14:39→18:13)
[2019-05-19] MEDS: cloNIDine HCL 0.1 MG TAB PO SCH ×2 (14:39→21:29)
[2019-05-19] MEDS: GABAPENTIN 300 MG CAP PO SCH ×4 (14:40→21:34)
[2019-05-19] MEDS: LOSARTAN 50 MG TAB PO SCH ×2 (14:40→21:29)
[2019-05-19] MEDS: hydrALAZINE HCL 50 MG TAB PO SCH ×3 (14:40→22:26)
[2019-05-19] MEDS: INSULIN DETEMIR (LEVEMIR) 100 UNIT/ML SYR SQ SCH (14:53)
[2019-05-19] MEDS: HYDROmorphone 1 MG/ML 1 ML SYRINGE IVP ONE ×4 (15:45→16:25)
--- NOTE | 2019-05-19 16:34 | P.OP ---
Description of Procedure: Preoperative diagnosis: Bradley 5 right lower extremity peripheral arterial disease, right superficial femoral artery occlusion Postoperative diagnosis: Same Procedure: 1. Left brachial artery arterial line access with ultrasound guidance 2. Left subclavian triple-lumen catheter placement with fluoroscopic guidance 3. Right femoral endarterectomy with patch angioplasty 4. Right distal popliteal endarterectomy 5. Right anterior tibial artery endarterectomy 6. Right tibial peroneal trunk endarterectomy 7. Right femoral to tibial bypass with in situ greater saphenous vein 8. Right fifth toe amputation Surgeon: Lin Araujo D.O. EBL: 200 mL IV fluids: Per anesthesia records. One unit PRBC Drains: None Specimen: Right femoral plaque, right tibial plaques, right fifth toe Complications: None Condition: Stable, extubated in the OR to PACU Operative indication and findings: The patient is a 68-year-old male with significant peripheral arterial disease as well as insulin dependent diabetes mellitus, coronary artery disease with previous bypass graft, atrial fibrillation, anemia, and history of cerebellar stroke. He came to the hospital because of gangrene to his right fifth toe along with pain and cellulitis. He had a previous angiogram from March 2019 which was reviewed with the performing link trainer maintenance man, it revealed no further endovascular treatment availabilities. There was significant disease in the common femoral artery with occlusion of the superficial femoral artery and reconstitution of the flow at the anterior tibial and peroneal arteries. A long discussion was had with the patient and his regarding therapy and the plan was to go forth with a femoral tibial bypass with in situ saphenous vein, as well as amputation of the right fifth toe. Risks and benefits were discussed including but not limited to bleeding, infection, limb loss, heart attack, poor wound healing and . The patient seemingly understood and was willing to proceed. At the time of surgery, there was significant calcific disease in the femoral artery as well as in the popliteal, anterior tibial and tibial peroneal trunk. Procedure in detail: Prior to the procedure the patient was evaluated in the preoperative area there was difficulty with obtaining radial arterial line access due to calcific disease therefore at that time we utilized the ultrasound to access the brachial artery. The area was prepped, skin was anesthetized and utilizing a arrow kit, brachial artery access was achieved with good flow and an adequate wave form. It was sutured in place with 3-0 silk, and a dressing was placed. Patient taken to the operative suite, prior to intubation there was no evidence of adequate IV. At that point is attempted a central line in the left subclavian but was having trouble with advancing the catheter therefore we assisted utilized fluoroscopic guidance and an 0.35 Glidewire after finding the initial positioning was up the IJ. Utilizing the sheath and the wire, the direction was manipulated and confirmed with fluoroscopic guidance into the cavoatrial junction. The tract was dilated and the catheter was placed and sutured in place. Aspirated blood freely and flushed well. At that point the patient was then intubated. A Araujo catheter was placed. The abdomen and right lower extremity prepped and draped in usual sterile fashion. A preprocedure timeout was performed and all parties are in agreement. An oblique incision was made in the right groin with the scalpel. It was deepened through subcutaneous tissues with electrocautery. The encountered lymphatics were ligated and divided. The femoral sheath was opened sharply. The common femoral artery was dissected free circumferentially. There was significant hardening of the artery. The dissection was extended proximally to the level of the inguinal ligament, and distally to include the superficial femoral and profunda femoris arteries. They were encircled with vessel loops. Attention was then turned towards the below-knee incision. It was made in the medial condyle and deepened through the fascia with care to avoid the saphenous vein. The popliteal artery was identified the popliteal vein was retracted. The anterior tibial and tibial peroneal trunks were identified and encircled. There was significant calcific disease in each of these areas. Vessel loops were placed at all 3 sites. Attention was then turned towards the vein itself at the level of the ankle the vein was identified and dissected free. Any branches were ligated with 3-0 silk ties. This was done to the level of the knee. At that point, given the multiple branches of the vein in the groin it was decided to transect the vein distally. A valvulotome was then passed up the saphenous vein to the level of the groin which revealed the proper channel. At that point other branches were ligated. At that point the patient was heparinized and ACT is were followed. Once heparinization was adequate, flow was occluded through the vessel. An 11 blade was utilized and arteriotomy is made the Saldaña-Mora scissors was utilized to enlarge the arteriotomy. An endarterectomy was performed. There was good inflow from the proximal artery. The endarterectomized surface was cleared of all debris. A bovine pericardial patch was utilized and anastomosis was created utilizing 5-0 Prolene. The anastomosis was flushed and flow was reinstituted. Hemostasis was achieved with interrupted sutures of 5-0 Prolene and thrombin and Gelfoam. The saphenous vein was then ligated proximally utilizing 6-0 Prolene. 8 graftotomy was made at the patch and an anastomosis created using 6-0 Prolene between the femoral patch and the saphenous vein. At that point a valvulotome was passed with times with return of adequate blood flow through the graft itself. The vein was marked. At that point the arteriotomy of the popliteal segment was performed, it was carried onto the anterior tibial and tibial peroneal trunk. All the surfaces were endarterectomized due to very limited backflow. Once the anterior tibial surface was endarterectomized, there was adequate backflow. In doing this the backflow from the tibial peroneal trunk with dampened therefore the arteriotomy was extended over to the tibial peroneal trunk any area was endarterectomized here with return of good backflow. The vein was cut to size and spatulated. Utilizing 7-0 Prolene an anastomosis was created. Hemostasis was achieved with interrupted sutures of 7-0 Prolene and thrombin and Gelfoam. At this point all anastomoses were completed and flow was resumed through the bypass graft. A Doppler was utilized to confirm multiphasic flow distally to the anastomosis. There was a multiphasic signal at the DP upon completion. At that point, the wound was copiously irrigated with antibiotic solution. The femoral sheath was reapproximated with interrupted sutures of 3-0 Vicryl. The subcuticular tissue was reapproximated with 3-0 Vicryl. The skin was reprepped with running sutures of 4-0 Monocryl. The popliteal fascia was reapproximated with 3-0 Vicryl. The subcu tissues were reapproximated with 3-0 Vicryl and the skin along the length of the vein harvest was refractory with running 4-0 Monocryl in subcuticular fashion. Incisional wound VAC dressings were placed. Attention was then turned to the fifth toe. The a circumferential incision was made surrounding the base of the toe and carried down to the bones electrocautery. A bone cutter is utilized followed by rongeur at the level of the fifth metatarsal head. The area was then copiously irrigated. Interposition of 3-0 Vicryl placed followed by interrupted sutures of 3-0 nylon. Dressings were placed Patient was awakened from surgery, extubated and transferred to PACU in stable condition and tolerated the procedure well.
[2019-05-19] MEDS: hydrALAZINE HCL 20 MG/ML 1 ML VIAL IVP PRN (16:53)
[2019-05-19] MEDS ORDERED: INSULIN DETEMIR (LEVEMIR) 100 UNIT/ML SYR SQ ONE (17:17)
[2019-05-19 17:20] LABS: Glucose,Whole Blood 238 mg/dL (75-99)
[2019-05-19] MEDS: ONDANSETRON 4 MG/2 ML VIAL IVP PRN (17:53)
[2019-05-19] MEDS: VIT A,C & E-LUTEIN-MINERALS 1 EACH TAB PO SCH (18:15)
[2019-05-19] MEDS: HYDROCHLOROTHIAZIDE 25 MG TAB PO SCH (18:15)
[2019-05-19] MEDS: HYDROXYUREA 500 MG CAP PO SCH (18:16)
[2019-05-19] MEDS: amLODIPine 10 MG TAB PO SCH (18:16)
[2019-05-19] MEDS: NICOTINE 14MG/24HR PATCH TRANSDERM SCH (18:23)
[2019-05-19] MEDS ORDERED: VANCOMYCIN TROUGH DUE 1 EACH MISC MISCELLANE ONE (19:00)
[2019-05-19 19:10] LABS: Anisocytosis Moderate; Basophils % (A) 0 %; Eosinophils % (A) 0 %; HCT 30.6 % (39.0-53.0); HGB 9.5 gm/dL (13.0-17.5); Hypochromasia Slight; Lymphocytes # (A) 0.7 k/uL (1.0-4.8); Lymphocytes % (A) 5 %; MCH 35.7 pg (25.0-35.0); Macrocytosis Marked; Mean Platelet Volume 7.3; Monocytes # (A) 0.4 k/uL (0-1.0); Monocytes % (A) 3 %; Neutrophils # (A) 11.7 k/uL (1.3-7.7); Neutrophils % (A) 90 %; Platelet Count 608 k/uL (150-450); RBC 2.66 m/uL (4.30-5.90); RDW 20.4 % (11.5-15.5)
[2019-05-19 19:12] LABS: MCV 115.2 fL (80.0-100.0)
--- NOTE | 2019-05-19 19:17 | XR ---
EXAMINATION TYPE: XR chest 1V DATE OF EXAM: 05/19/2019 COMPARISON: 05/14/2019 HISTORY: Check line placement TECHNIQUE: Single frontal view of the chest is obtained. FINDINGS: There is left subclavian catheter with the tip in the superior vena cava. No pneumothorax. No heart failure. Thoracic aorta is atheromatous. There is no pleural effusion. Lungs are clear of c onsolidation. There are chest leads. There is old left-sided healed rib fractures. IMPRESSION: No active cardiopulmonary disease. No change.
[2019-05-19 20:37] LABS: Hemoglobin A1C 5.9 % (4.0-6.0)
[2019-05-19 21:04] LABS: Glucose,Whole Blood 240 mg/dL (75-99)
[2019-05-19] MEDS: ATORVASTATIN 80 MG TAB PO SCH (21:29)
[2019-05-19 21:35] LABS: Glucose,Whole Blood 260 mg/dL (75-99)
[2019-05-19] MEDS: HYDROmorphone 0.5 MG/0.5 ML SYRINGE IVP PRN (22:27)
[2019-05-19] MEDS ORDERED: LACTATED RINGERS 500 ML IV SCH (22:30)
--- NOTE | 2019-05-19 22:32 | PN ---
PROGRESS NOTE DATE OF SERVICE: 05/19/2019 This 68-year-old gentleman who was admitted with multiple medical problems including Tigan dry gangrene of the 5th toe and significant peripheral vascular disease. The patient is slated to undergo vascular surgery today by Dr. Resendiz. No chest pain. No palpitations. No fever. EXAM: Alert and oriented times three. Pulse is 98. Blood pressure 180/76, respiration 18, temperature 98 degrees, pulse ox 98% on 8 L. HEENT is conjunctivae normal. Neck is no jugular venous distention. CARDIOVASCULAR: S1, S2 muffled. RESPIRATION: Breath sounds diminished in the bases. A few scattered rhonchi and crackles. Abdomen is soft. Nontender. Nervous system: No focal deficits. LABS: WBC 9.1, hemoglobin 9.2, sodium 140, potassium 3.8. ASSESSMENT: 1. Acute gangrene of the right 5th toe as well as diabetic gangrene. 2. Peripheral vascular disease. 3. Peripheral neuropathy secondary to diabetes type 2. 4. Anemia, macrocytic anemia possibly nutritional. 5. Diabetes type 2, uncontrolled with hypoglycemia. 6. History of coronary artery disease. 7. History of cerebrovascular accident, transient ischemic attack. 8. Hypertension. 9. Hyperlipidemia. 10.History of myocardial infarction. 11.History of pneumonia. 12.Seizure disorder. 13.Hypothyroidism. 14.History of iron deficiency anemia. 15.History Agent [place] exposure. 16.History of coronary artery disease, coronary artery bypass grafting. 17.History of TAVR. 18.Continued ongoing nicotine dependence. RECOMMENDATIONS AND DISCUSSION: Recommend to continue current medications, management and symptomatic treatment treatment. Otherwise, continue to monitor blood pressure and blood sugars. Surgery per vascular surgery. Prognosis guarded. Further recommendations to follow. MMODL / IJN: [id number] /
[2019-05-19] MEDS: LACTATED RINGERS 1,000 ML IV SCH (22:41)
[2019-05-20] MEDS: PIPERACILLIN-TAZOBACTAM 3.375 GM in SODIUM CHLORIDE 0.9% 100 ML IVPB SCH ×3 (00:37→15:05)
[2019-05-20] MEDS: HYDROmorphone 0.5 MG/0.5 ML SYRINGE IVP PRN (03:31)
[2019-05-20 05:53] LABS: Anisocytosis Moderate; Basophils % (A) 0 %; Eosinophils # (A) 0.1 k/uL (0-0.7); Eosinophils % (A) 0 %; Hypochromasia Slight; Lymphocytes # (A) 0.8 k/uL (1.0-4.8); Lymphocytes % (A) 6 %; MCH 35.8 pg (25.0-35.0); MCHC 31.5 g/dL (31.0-37.0); MCV 113.8 fL (80.0-100.0); Mean Platelet Volume 7.9; Monocytes # (A) 0.8 k/uL (0-1.0); Monocytes % (A) 6 %; Neutrophils # (A) 10.4 k/uL (1.3-7.7); Neutrophils % (A) 85 %; Platelet Count 514 k/uL (150-450); Poikilocytosis Slight; RDW 20.7 % (11.5-15.5); WBC 12.3 k/uL (3.8-10.6)
[2019-05-20 06:00] LABS: HGB 7.9 gm/dL (13.0-17.5); Macrocytosis Marked
[2019-05-20 06:08] LABS: Calcium 8.3 mg/dL (8.4-10.2); Potassium 4.3 mmol/L (3.5-5.1)
[2019-05-20 07:04] LABS: Glucose,Whole Blood 123 mg/dL (75-99)
[2019-05-20] MEDS: INSULIN ASPART (NovoLOG) 100 UNIT/ML VIAL SQ SCH ×4 (07:27→21:30)
--- NOTE | 2019-05-20 07:36 | PN ---
PROGRESS NOTE Mr. Lomas is a 68-year-old male with a known history of coronary artery disease status post coronary artery bypass grafting, history of aortic valve replacement with TAVR, who presented with progressive discomfort in the right toe with gangrene. Yesterday, underwent surgical intervention by Dr. Araujo, but he had a right femoral endarterectomy with patch angioplasty, right distal popliteal endarterectomy, right anterior tibial artery endarterectomy and right tibioperoneal endarterectomy with right femoral/tib bypass with right 5th toe amputation. He is awake, alert, denying any chest discomfort. His breathing has been stable. He denies any dizziness or palpitation. He denies any nausea. Hemodynamically, he is stable and he continues to be in sinus mechanism. He continues to be at this time on aspirin once a day Lipitor 80 mg daily, Coreg 3.125 mg twice a day, clonidine 0.1 mg twice a day, Plavix 75 mg daily, hydralazine 50 mg 3 times a day, hydrochlorothiazide 25 mg daily, hydroxyurea, insulin, losartan 50 mg twice a day. PHYSICAL EXAMINATION: Blood pressure running in the 160s with a heart rate in the 50s. LUNGS: Clear. HEART: Regular rate and rhythm S1, S2. No S3 with systolic murmur heard at the base, ejection type. No diastolic murmur. No rub. ABDOMEN: Soft, nontender. Positive bowel sounds. No organomegaly. EXTREMITIES: Dressing noted in the right lower extremity. LAB DATA: Lab data revealed a hemoglobin of 7.9, white blood cell of 12.3, BUN and creatinine 22 and 1.44. IMPRESSION: 1. Status post revascularization of right lower extremity with amputation of the toe. 2. History of coronary artery disease with coronary artery bypass grafting with no evidence of any angina pectoris. 3. Status post TAVR. 4. Hypertension. 5. Hyperlipidemia. 6. Diabetes mellitus. 7. Abnormal renal function. RECOMMENDATION: I will increase the dose of his hydralazine. Continue rest of his medical regimen. Follow his blood pressure and adjust the treatment as needed. In the meantime, he will continue on the present therapy. MMODL / IJN: [id number] /
[2019-05-20] MEDS: CARVEDILOL 3.125 MG TAB PO SCH ×2 (07:37→18:06)
[2019-05-20] MEDS: LEVOTHYROXINE 125 MCG TAB PO SCH (07:37)
[2019-05-20] MEDS: LACTATED RINGERS 1,000 ML IV SCH (07:37)
[2019-05-20] MEDS: ONDANSETRON 4 MG/2 ML VIAL IVP PRN ×2 (08:22→15:05)
[2019-05-20] MEDS: ASPIRIN 325 MG TAB PO SCH (09:14)
[2019-05-20] MEDS: NICOTINE 14MG/24HR PATCH TRANSDERM SCH (09:14)
[2019-05-20] MEDS: HYDROCHLOROTHIAZIDE 25 MG TAB PO SCH (09:14)
[2019-05-20] MEDS: VIT A,C & E-LUTEIN-MINERALS 1 EACH TAB PO SCH (09:14)
[2019-05-20] MEDS: HEPARIN SODIUM,PORCINE 5,000 UNIT/ML 1 ML VIAL SQ SCH ×2 (09:14→21:19)
[2019-05-20] MEDS: GABAPENTIN 300 MG CAP PO SCH ×4 (09:15→21:20)
[2019-05-20] MEDS: hydrALAZINE HCL 25 MG TAB PO SCH ×3 (09:15→21:20)
[2019-05-20] MEDS: HYDROXYUREA 500 MG CAP PO SCH (09:15)
[2019-05-20] MEDS: CLOPIDOGREL 75 MG TAB PO SCH (09:16)
[2019-05-20] MEDS: cloNIDine HCL 0.1 MG TAB PO SCH ×2 (09:16→21:19)
[2019-05-20] MEDS: FERROUS SULFATE 325 MG TAB PO SCH (09:16)
[2019-05-20] MEDS: LOSARTAN 50 MG TAB PO SCH ×2 (09:16→21:19)
[2019-05-20] MEDS: amLODIPine 10 MG TAB PO SCH (09:16)
[2019-05-20] MEDS ORDERED: METOCLOPRAMIDE 5 MG/ML 2 ML VIAL IVP PRN (10:15)
[2019-05-20] MEDS: INSULIN DETEMIR (LEVEMIR) 100 UNIT/ML SYR SQ SCH (10:19)
[2019-05-20] MEDS: hydrALAZINE HCL 20 MG/ML 1 ML VIAL IVP PRN ×2 (10:27→14:16)
[2019-05-20] MEDS: SODIUM CHLORIDE 0.9% 1,000 ML IV SCH (10:28)
[2019-05-20] MEDS: PANTOPRAZOLE 40 MG/10 ML VIAL IVP SCH ×2 (10:28→21:20)
[2019-05-20] MEDS ORDERED: INSULIN DETEMIR (LEVEMIR) 100 UNIT/ML SYR SQ ONE (11:00)
[2019-05-20 11:52] LABS: Glucose,Whole Blood 143 mg/dL (75-99)
[2019-05-20] MEDS: cloNIDine HCL 0.1 MG TAB PO PRN (12:02)
--- NOTE | 2019-05-20 14:49 | P.PN ---
Subjective Progress Note Date: 05/20/19 Patient seen and examined. overnight did have some nausea and decreased urine output. He was given a bolus and did receive some maintenance IV fluids. No issues overnight per nursing otherwise patient denies any chest pain or shortness of breath this time. Says that he has more feeling in his right foot, and then it feels warmer Objective - Vital Signs Vital signs: Vital Signs Temp 97.8 F 05/20/19 12:00 Pulse 71 05/20/19 14:00 Resp 14 05/20/19 14:00 BP 171/56 05/20/19 14:00 Pulse Ox 96 05/20/19 12:00 Intake & Output 05/19/19 05/20/19 05/20/19 18:59 06:59 18:59 Intake Total 2822 1715 2200 Output Total 608 105 1236 Balance 2092 1450 1190 Weight 76.3 kg Intake: IV 2202 1125 900 Lactated Ringers 1,000 ml 625 750 @ 125 mls/hr IV .Q8H [facility] Rx#:[id number] Lactated Ringers 500 ml @ 500 999 mls/hr IV .Q31M [facility] Rx#:[id number] Sodium Chloride 0.9% 1, 150 000 ml @ 75 mls/hr IV . [id number] [facility] Rx#:[id number] Intake, IV Titration 350 100 Amount Piperacillin-Tazobactam 3 100 100 .375 gm In Sodium Chloride 0.9% 100 ml @ 25 mls/hr IVPB Q8HR [facility] Rx# :[id number] Vancomycin 1,250 mg In 250 Sodium Chloride 0.9% 250 ml @ 125 mls/hr IVPB Q16H [facility] Rx#:[id number] Oral 240 1200 Blood Product 620 Rc As-1 Unit 310 [id number] Output: Drainage 0 Right Calf 0 Right Groin 0 Urine 530 265 410 Emesis 600 Estimated Blood Loss 200 Other: Voiding Method Indwelling Catheter Indwelling Catheter Indwelling Catheter ABP, PAP, CO, CI - Last Documented Arterial Blood Pressure 176/33 - Exam No acute distress, resting comfortably at this time. No respiratory distress. Heart irregular Abdomen soft Bilateral lower extremities warm. wound vacs to right groinand lower legintact with no leak. Right foot dressing in place, clean, dry, intact. Motor intact. Strong monophasic to biphasic DP. Palpable bypass graft at knee - Labs CBC & Chem 7: 05/20/19 05:35 05/20/19 05:35 Labs: Abnormal Lab Results - Last 24 Hours (Table) 05/18/19 05/19/19 05/19/19 Range/Units 15:07 17:16 18:50 WBC 13.0 H (3.8-10.6) k/uL RBC 2.66 L (4.30-5.90) m/uL Hgb 9.5 L (13.0-17.5) gm/dL Hct 30.6 L (39.0-53.0) % MCV 115.2 H D (80.0-100.0) fL MCH 35.7 H (25.0-35.0) pg RDW 20.4 H (11.5-15.5) % Plt Count 608 H (150-450) k/uL Neutrophils # 11.7 H (1.3-7.7) k/uL Lymphocytes # 0.7 L (1.0-4.8) k/uL Macrocytosis Marked A Sodium (137-145) mmol/L Chloride (98-107) mmol/L Carbon Dioxide (22-30) mmol/L BUN (9-20) mg/dL Creatinine (0.66-1.25) mg/dL Glucose (74-99) mg/dL POC Glucose (mg/dL) 238 H (75-99) mg/dL Calcium (8.4-10.2) mg/dL Crossmatch See Detail 05/19/19 05/19/19 05/20/19 Range/Units 20:39 21:32 05:35 WBC 12.3 H (3.8-10.6) k/uL RBC 2.20 L (4.30-5.90) m/uL Hgb 7.9 L D (13.0-17.5) gm/dL Hct 25.0 L (39.0-53.0) % MCV 113.8 H (80.0-100.0) fL MCH 35.8 H (25.0-35.0) pg RDW 20.7 H (11.5-15.5) % Plt Count 514 H (150-450) k/uL Neutrophils # 10.4 H (1.3-7.7) k/uL Lymphocytes # 0.8 L (1.0-4.8) k/uL Macrocytosis Marked A Sodium (137-145) mmol/L Chloride (98-107) mmol/L Carbon Dioxide (22-30) mmol/L BUN (9-20) mg/dL Creatinine (0.66-1.25) mg/dL Glucose (74-99) mg/dL POC Glucose (mg/dL) 240 H 260 H (75-99) mg/dL Calcium (8.4-10.2) mg/dL Crossmatch 05/20/19 05/20/19 05/20/19 Range/Units 05:35 07:01 11:49 WBC (3.8-10.6) k/uL RBC (4.30-5.90) m/uL Hgb (13.0-17.5) gm/dL Hct (39.0-53.0) % MCV (80.0-100.0) fL MCH (25.0-35.0) pg RDW (11.5-15.5) % Plt Count (150-450) k/uL Neutrophils # (1.3-7.7) k/uL Lymphocytes # (1.0-4.8) k/uL Macrocytosis Sodium 136 L (137-145) mmol/L Chloride 110 H (98-107) mmol/L Carbon Dioxide 19 L (22-30) mmol/L BUN 22 H (9-20) mg/dL Creatinine 1.44 H (0.66-1.25) mg/dL Glucose 103 H (74-99) mg/dL POC Glucose (mg/dL) 123 H 143 H (75-99) mg/dL Calcium 8.3 L (8.4-10.2) mg/dL Crossmatch Microbiology - Last 24 Hours (Table) 05/14/19 12:49 Blood Culture - Preliminary Blood No Growth after 120 hours Assessment and Plan Assessment: 1. postoperative day #1 from right femoral endarterectomy with patch angioplasty, right below-knee popliteal/tibial endarterectomy with femoral to tibial bypass in situ 2. Right lower extremity 5th toe dry gangrene 3. Severe atherosclerotic disease of the bilateral lower extremities 4. Insulin-dependent diabetes mellitus 5. Coronary artery disease 6. Atrial fibrillation 7. Anemia, received 1 unitPRBC intraoperative. Currently 7.9. Will monitor. Asymptomatic at this point 8. History of cerebellar stroke Plan: at this point continue postoperative supportive care. Continue pain control. Increase activity as tolerated. Okay for aspirin and Plavix from our standpoint. Monitor labs. Transfuse as necessary.
--- NOTE | 2019-05-20 15:14 | PN ---
PROGRESS NOTE DATE OF SERVICE: 05/20/2019 This 68-year-old gentleman with a past medical history of multiple medical problems, had significant gangrenous lesion. Patient underwent right femoral endarterectomy as well as right distal popliteal and tibial endarterectomy as well as right femorotibial bypass in-situ with great saphenous vein. Postoperatively, the patient is having some nausea. Patient threw up this morning and the patient was also having blood pressure elevations. Patient being closely monitored in ICU at this time. The patient is made currently n.p.o. The chest x-ray done after yesterday did not show any acute abnormality. Lab dixon this morning the WBC 12.2, hemoglobin 7.9, MCV is elevated. Sodium 136, creatinine is 1.44. PAST MEDICAL HISTORY: Reviewed. REVIEW OF SYSTEMS: CARDIOVASCULAR SYSTEM: No angina or palpitations. RESPIRATION: No cough or hemoptysis. CARDIOVASCULAR as mentioned earlier. GI: As mentioned earlier. no dysuria. CENTRAL NERVOUS SYSTEM: No numbness, weakness. EXTREMITIES mentioned earlier. CURRENT MEDICATIONS: Reviewed and include: 1. [place] 5 mg q.6h p.r.n. 2. Xanax 0.5 t.i.d. 3. Norvasc 10 mg. 4. Aspirin 81 mg p.o. daily. 5. Lipitor 30 mg p.o. q.h.s. 6. Coreg 3.125 mg daily. 7. Catapres 0.1 q.4 p.r.n. 8. Plavix 75 mg p.o. daily. 9. Neurontin 300 mg p.o. q. daily. 10.Heparin 5000 subcu b.i.d. 11.Apresoline 75 t.i.d. 12.HydroDIURIL 25 mg daily. 13.Dilaudid p.r.n. 14.Hydrea p.r.n. 15.Levemir 35 units daily. 16.Synthroid 125 mcg p.o. daily. 17.Reglan. 18.I-Kori. 19.Habitrol 14 daily. 20.Nitrostat. 21.Zofran. 22.Protonix. 23.Restoril. 24.Ultram p.r.n. 25.Medication doses reviewed. PHYSICAL EXAM: Patient is alert, oriented x3. Pulse 71, blood pressure 172/59, respiration 14, temperature 97.8, pulse ox 96% on room air. HEENT: Conjunctivae normal. NECK: No JVD. CARDIOVASCULAR: S1, S2 normal. RESPIRATORY: Breath sounds diminished in the bases. A few scattered rhonchi. No crackles. ABDOMEN: Soft, nontender. No mass palpable. LEGS: No edema. No swelling. Status post left leg surgery. NERVOUS SYSTEM: No focal deficits. LAB STUDIES: WBC 12.3, hemoglobin 7.9, sodium 136, potassium 4.2, creatinine is 1.44. ASSESSMENT: 1. Acute gangrene of the right 5th toe secondary to peripheral vascular disease, status post amputation of the 5th toe as well as right endarterectomies and right femoral tibial bypass surgery. 2. Postop nausea, vomiting, possible acute gastritis. 3. 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 4. Anemia, macrocytic anemia possibly nutritional. 5. Diabetes type 2, uncontrolled with hypoglycemia. 6. History of coronary artery disease. 7. History of cerebrovascular accident, transient ischemic attack. 8. Hypertension. 9. Hyperlipidemia. 10.History of myocardial infarction. 11.History of pneumonia. 12.History of seizure disorder. 13.Hypothyroidism. 14.History of anemia. 15.History of Agent [place] exposure. 16.History of coronary artery disease, coronary artery bypass grafting. 17.History of TAVR. 18.Continued ongoing nicotine dependence. RECOMMENDATIONS AND DISCUSSION: This 68-year-old gentleman who presented with multiple complex medical issues, we will monitor the patient closely, continue the current medications, management and symptomatic treatment. Otherwise, at this time, I recommend to keep the patient n.p.o. except medications and Protonix IV. Continue with hydralazine IV p.r.n. and clonidine p.r.n. for blood pressure elevations and start the patient on p.o. medication with little p.o. sips of water. Otherwise, hold aspirin and Plavix if okay with vascular surgery till the patient is able to tolerate some medications or food. Overall prognosis guarded. We will closely monitor. Further recommendations to follow. See orders. Discussed the patient at length with staff. MMCLARIL / AURELION: [id number] / MTDD
[2019-05-20 18:17] LABS: Glucose,Whole Blood 111 mg/dL (75-99)
[2019-05-20] MEDS: HYDROcodone/APAP 5-325MG 1 EACH TAB PO PRN (21:18)
[2019-05-20] MEDS: ATORVASTATIN 80 MG TAB PO SCH (21:19)
[2019-05-20 21:25] LABS: Glucose,Whole Blood 94 mg/dL (75-99)
[2019-05-20] MEDS: VANCOMYCIN 1,250 MG in SODIUM CHLORIDE 0.9% 250 ML IVPB SCH (21:38)
[2019-05-21] MEDS: PIPERACILLIN-TAZOBACTAM 3.375 GM in SODIUM CHLORIDE 0.9% 100 ML IVPB SCH ×4 (01:00→23:40)
[2019-05-21] MEDS: SODIUM CHLORIDE 0.9% 1,000 ML IV SCH ×2 (01:03→16:10)
[2019-05-21 04:42] LABS: Anisocytosis Slight; HCT 23.1 % (39.0-53.0); HGB 7.3 gm/dL (13.0-17.5); Hypochromasia Moderate; MCH 37.2 pg (25.0-35.0); MCHC 31.8 g/dL (31.0-37.0); Mean Platelet Volume 7.5; Platelet Count 422 k/uL (150-450); RBC 1.97 m/uL (4.30-5.90); RDW 19.7 % (11.5-15.5); WBC 12.1 k/uL (3.8-10.6)
[2019-05-21 04:52] LABS: Macrocytosis Marked
[2019-05-21 04:55] LABS: Calcium 8.1 mg/dL (8.4-10.2); Potassium 3.7 mmol/L (3.5-5.1)
[2019-05-21] MEDS: LEVOTHYROXINE 125 MCG TAB PO SCH (06:52)
[2019-05-21] MEDS: INSULIN ASPART (NovoLOG) 100 UNIT/ML VIAL SQ SCH ×4 (07:09→22:00)
[2019-05-21 07:33] LABS: Glucose,Whole Blood 108 mg/dL (75-99)
[2019-05-21] MEDS ORDERED: ASPIRIN 81 MG PO SCH (09:00)
[2019-05-21] MEDS: ASPIRIN 325 MG TAB PO SCH (09:04)
[2019-05-21] MEDS: PANTOPRAZOLE 40 MG/10 ML VIAL IVP SCH (09:04)
[2019-05-21] MEDS: CARVEDILOL 3.125 MG TAB PO SCH (09:05)
[2019-05-21] MEDS: GABAPENTIN 300 MG CAP PO SCH ×4 (09:05→21:58)
[2019-05-21] MEDS: NICOTINE 14MG/24HR PATCH TRANSDERM SCH (09:05)
[2019-05-21] MEDS: CLOPIDOGREL 75 MG TAB PO SCH (09:05)
[2019-05-21] MEDS: amLODIPine 10 MG TAB PO SCH ×3 (09:05→23:48)
[2019-05-21] MEDS: HEPARIN SODIUM,PORCINE 5,000 UNIT/ML 1 ML VIAL SQ SCH ×2 (09:05→21:59)
[2019-05-21] MEDS: cloNIDine HCL 0.1 MG TAB PO SCH ×3 (09:05→21:58)
[2019-05-21] MEDS: hydrALAZINE HCL 25 MG TAB PO SCH ×3 (09:05→21:58)
[2019-05-21] MEDS: HYDROXYUREA 500 MG CAP PO SCH (09:06)
[2019-05-21] MEDS: HYDROCHLOROTHIAZIDE 25 MG TAB PO SCH (09:06)
[2019-05-21] MEDS: VIT A,C & E-LUTEIN-MINERALS 1 EACH TAB PO SCH (09:07)
[2019-05-21] MEDS: LOSARTAN 50 MG TAB PO SCH ×2 (09:41→21:58)
--- NOTE | 2019-05-21 10:48 | P.PN ---
Subjective Progress Note Date: 05/21/19 Patient seen and examined. No issues overnight. Has good feeling in his right foot and feels warmer still. Anxious to go home. Objective - Vital Signs Vital signs: Vital Signs Temp 97.8 F 05/21/19 04:00 Pulse 64 05/21/19 07:00 Resp 17 05/21/19 07:00 BP 157/50 05/21/19 07:00 Pulse Ox 98 05/21/19 07:00 Intake & Output 05/20/19 05/21/19 05/21/19 18:59 06:59 18:59 Intake Total 2575 900 Output Total 1210 200 Balance 1365 700 Weight 75.9 kg Intake: IV 1275 900 Lactated Ringers 1,000 ml 750 @ 125 mls/hr IV .Q8H [facility] Rx#:[id number] Sodium Chloride 0.9% 1, 525 900 000 ml @ 75 mls/hr IV . [id number] [facility] Rx#:[id number] Intake, IV Titration 100 Amount Piperacillin-Tazobactam 3 100 .375 gm In Sodium Chloride 0.9% 100 ml @ 25 mls/hr IVPB Q8HR [facility] Rx# :[id number] Oral 1200 Output: Urine 610 200 Emesis 600 Other: Voiding Method Urinal Urinal # Voids 1 ABP, PAP, CO, CI - Last Documented Arterial Blood Pressure 129/121 - Exam No acute distress, resting comfortably at this time. No respiratory distress. Heart irregular Abdomen soft Bilateral lower extremities warm. wound vacs to right groin and lower leg intact with no leak. Right fifth toe incision clean, dry, intact. Motor intact. biphasic DP. Palpable bypass graft at knee - Labs CBC & Chem 7: 05/21/19 04:28 05/21/19 04:28 Labs: Abnormal Lab Results - Last 24 Hours (Table) 05/20/19 05/20/19 05/21/19 Range/Units 11:49 18:03 04:28 WBC 12.1 H (3.8-10.6) k/uL RBC 1.97 L (4.30-5.90) m/uL Hgb 7.3 L (13.0-17.5) gm/dL Hct 23.1 L (39.0-53.0) % MCV 117.0 H (80.0-100.0) fL MCH 37.2 H (25.0-35.0) pg RDW 19.7 H (11.5-15.5) % Macrocytosis Marked A Chloride (98-107) mmol/L Carbon Dioxide (22-30) mmol/L BUN (9-20) mg/dL Creatinine (0.66-1.25) mg/dL POC Glucose (mg/dL) 143 H 111 H (75-99) mg/dL Calcium (8.4-10.2) mg/dL 05/21/19 05/21/19 Range/Units 04:28 07:07 WBC (3.8-10.6) k/uL RBC (4.30-5.90) m/uL Hgb (13.0-17.5) gm/dL Hct (39.0-53.0) % MCV (80.0-100.0) fL MCH (25.0-35.0) pg RDW (11.5-15.5) % Macrocytosis Chloride 113 H (98-107) mmol/L Carbon Dioxide 18 L (22-30) mmol/L BUN 21 H (9-20) mg/dL Creatinine 1.32 H (0.66-1.25) mg/dL POC Glucose (mg/dL) 108 H (75-99) mg/dL Calcium 8.1 L (8.4-10.2) mg/dL Microbiology - Last 24 Hours (Table) 05/14/19 12:49 Blood Culture - Final Blood No Growth after 144 hours Assessment and Plan Assessment: 1. postoperative day #2 from right femoral endarterectomy with patch angioplasty , right below-knee popliteal/tibial endarterectomy with femoral to tibial bypass in situ 2. Right lower extremity 5th toe dry gangrene 3. Severe atherosclerotic disease of the bilateral lower extremities 4. Insulin-dependent diabetes mellitus 5. Coronary artery disease 6. Atrial fibrillation 7. Anemia, received 1 unitPRBC intraoperative. Currently 7.3. Will monitor. Asymptomatic at this point. 8. History of cerebellar stroke Plan: at this point continue postoperative supportive care. Continue pain control. Increase activity as tolerated. Okay for aspirin and Plavix from our standpoint. Monitor labs. Transfuse as necessary. Had long discussion with him regarding need for physical therapy prior to discharge. Home for discharge in next 24 hours. Case discussed with medicine [employer]
[2019-05-21] MEDS: INSULIN DETEMIR (LEVEMIR) 100 UNIT/ML SYR SQ SCH (10:59)
[2019-05-21] MEDS ORDERED: INSULIN DETEMIR (LEVEMIR) 100 UNIT/ML SYR SQ ONE (12:00)
[2019-05-21 12:17] LABS: Glucose,Whole Blood 158 mg/dL (75-99)
--- NOTE | 2019-05-21 13:10 | P.PN ---
Subjective Progress Note Date: 05/21/19 Principal diagnosis: This is a 68-year-old male with a past medical history of multiple medical problems, and was recently admitted for a gangrenous right 5th toe. Patient underwent a right femoral endarterectomy, right distal popliteal and tibial endarterectomy, and right femoral-tibial bypass of the great saphenous vein. Yesterday status post surgery patient was having some nausea and vomiting and was made nothing by mouth. This morning patient is not having any nausea or vomiting and is currently on clear liquid diet and tolerating well. Patient is stressing that he would like to go home today. is at the bedside. Review of systems: Cardiovascular: Denies any palpitations or chest pain Respiratory: Denies any shortness of breath, cough, or hemoptysis Abdomen: Denies any nausea or vomiting, tolerating clear liquid diet Genitourinary: Denies any burning or pain with urination, using a urinal Nervous system: Denies any numbness or weakness Extremities: Denies any weakness or pain in extremities, able to move them all equally Objective - Vital Signs Vital signs: Vital Signs Temp 98.1 F 05/21/19 12:00 Pulse 63 05/21/19 12:00 Resp 22 05/21/19 12:00 BP 151/72 05/21/19 12:00 Pulse Ox 96 05/21/19 12:00 Intake & Output 05/20/19 05/21/19 05/21/19 18:59 06:59 18:59 Intake Total 2575 900 880 Output Total 1210 200 Balance 1365 700 880 Weight 75.9 kg Intake: IV 1275 900 300 Lactated Ringers 1,000 ml 750 @ 125 mls/hr IV .Q8H [facility] Rx#:[id number] Sodium Chloride 0.9% 1, 525 900 300 000 ml @ 75 mls/hr IV . [id number] [facility] Rx#:[id number] Intake, IV Titration 100 100 Amount Piperacillin-Tazobactam 3 100 100 .375 gm In Sodium Chloride 0.9% 100 ml @ 25 mls/hr IVPB Q8HR [facility] Rx# :[id number] Oral 1200 480 Output: Urine 610 200 Emesis 600 Other: Voiding Method Urinal Urinal # Voids 1 1 ABP, PAP, CO, CI - Last Documented Arterial Blood Pressure 129/121 - Exam Patient is alert and oriented 3. Vital signs are stable and currently on room air HEENT: Conjunctiva normal, EOMs intact Neck: No jugular venous distention, supple Cardiovascular: S1, S2 normal Respiratory: Breath sounds diminished bilaterally in the bases, no crackles or wheezing noted Abdomen: Soft, non-tender Legs: No edema or swelling noted, wound VAC dressing of the right leg is dry and intact, right foot dressing was dry and intact, right foot positive pulses noted on exam by Doppler, and right fifth toe surgical site is dry and intact with sutures noted. No swelling or redness at the site. Nervous system: No focal deficits. Lab studies: WBCs 12.1, hemoglobin 7.3, MCV 117, sodium 138, BUN 21, creatinine 1.32, glucose 158 Assessment: 1. Acute gangrene of the right fifth toe secondary to peripheral vascular disease, status post amputation of the fifth toe as well as right endarterectomies and right femoral tibial bypass surgery 2. Postop nausea, vomiting, possible acute gastritis, resolved 3. 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 Anemia, macrocytic anemia possibly nutritional 5. Diabetes type 2, uncontrolled with hypoglycemia 6. History of coronary artery disease 7. History of cerebrovascular accident, TIA 8. Hypertension 9. Hyperlipidemia 10. History of myocardial infarction 11. History of pneumonia 12. History of seizure disorder 13. Hypothyroidism 14. History of anemia 15. History of agent [place] exposure 16. History of coronary artery disease, coronary artery bypass grafting 17. History of TAVR 18. Continuing ongoing nicotine dependence Recommendations and discussion: In this 68-year-old man who presented with multiple complex medical issues we will be continuing to closely monitor. Continue with current medications, management, and symptomatic treatment. Patient is now tolerating clear liquid diet and may advance as tolerated. Continue to monitor blood sugars per protocol. We'll continue to monitor vital signs. Patient has been restarted on aspirin and Plavix and is okay with vascular surgery at this time. Discussed with vascular surgery about follow-up and care of the patient. Patient is stable to be out of the ICU per vascular surgery. Patient was refusing to work with PT/OT and discussed the importance of this with the patient and the at the bedside. Overall prognosis is guarded we will continue to monitor lab values in the morning. Further recommendations to follow. If hemodynamically stable, patient may possibly be ready for discharge in the next 24-48 hours. - Constitutional General appearance: Present: cooperative, disheveled, no acute distress - Labs CBC & Chem 7: 05/21/19 04:28 05/21/19 04:28 Labs: Abnormal Lab Results - Last 24 Hours (Table) 05/20/19 05/21/19 05/21/19 Range/Units 18:03 04:28 04:28 WBC 12.1 H (3.8-10.6) k/uL RBC 1.97 L (4.30-5.90) m/uL Hgb 7.3 L (13.0-17.5) gm/dL Hct 23.1 L (39.0-53.0) % MCV 117.0 H (80.0-100.0) fL MCH 37.2 H (25.0-35.0) pg RDW 19.7 H (11.5-15.5) % Macrocytosis Marked A Chloride 113 H (98-107) mmol/L Carbon Dioxide 18 L (22-30) mmol/L BUN 21 H (9-20) mg/dL Creatinine 1.32 H (0.66-1.25) mg/dL POC Glucose (mg/dL) 111 H (75-99) mg/dL Calcium 8.1 L (8.4-10.2) mg/dL 05/21/19 05/21/19 Range/Units 07:07 12:02 WBC (3.8-10.6) k/uL RBC (4.30-5.90) m/uL Hgb (13.0-17.5) gm/dL Hct (39.0-53.0) % MCV (80.0-100.0) fL MCH (25.0-35.0) pg RDW (11.5-15.5) % Macrocytosis Chloride (98-107) mmol/L Carbon Dioxide (22-30) mmol/L BUN (9-20) mg/dL Creatinine (0.66-1.25) mg/dL POC Glucose (mg/dL) 108 H 158 H (75-99) mg/dL Calcium (8.4-10.2) mg/dL Microbiology - Last 24 Hours (Table) 05/14/19 12:49 Blood Culture - Final Blood No Growth after 144 hours Assessment and Plan Time with Patient: Greater than 30
[2019-05-21] MEDS: traMADol 50 MG TAB PO PRN (16:08)
[2019-05-21 17:00] LABS: Glucose,Whole Blood 168 mg/dL (75-99)
[2019-05-21] MEDS: CARVEDILOL 6.25 MG TAB PO SCH (17:23)
[2019-05-21] MEDS: PANTOPRAZOLE 40 MG TABLET PO SCH (17:23)
[2019-05-21] MEDS: cloNIDine HCL 0.1 MG TAB PO PRN (18:22)
--- NOTE | 2019-05-21 20:45 | P.PN ---
Subjective Patient is resting in bed. He is anemic. He has a gangrenous right toe which was amputated and he underwent a right femoral tibial bypass. His blood pressure is still elevated He denies any chest discomfort. He does not appear short of breath and wants to go home Blood pressure is elevated this morning afebrile 98F pulse rate in the 70s Blood pressure 120/68 mmHg Suggest Increase Coreg to 6.25 mg twice daily Stagger all other blood pressure medications medications Will follow Objective - Vital Signs Vital signs: Vital Signs Temp 98.3 F 05/21/19 16:00 Pulse 69 05/21/19 18:00 Resp 19 05/21/19 18:00 BP 175/54 05/21/19 18:00 Pulse Ox 96 05/21/19 16:00 Intake & Output 05/21/19 05/21/19 05/22/19 06:59 18:59 06:59 Intake Total 900 1405 Output Total 200 300 Balance 700 1105 Weight 75.9 kg Intake: IV 900 825 Sodium Chloride 0.9% 1, 900 825 000 ml @ 75 mls/hr IV . [id number] [facility] Rx#:[id number] Intake, IV Titration 100 Amount Piperacillin-Tazobactam 3 100 .375 gm In Sodium Chloride 0.9% 100 ml @ 25 mls/hr IVPB Q8HR [facility] Rx# :[id number] Oral 480 Output: Urine 200 300 Other: Voiding Method Urinal Urinal # Voids 1 ABP, PAP, CO, CI - Last Documented Arterial Blood Pressure 129/121 - Labs CBC & Chem 7: 05/21/19 04:28 05/21/19 04:28 Labs: Abnormal Lab Results - Last 24 Hours (Table) 05/21/19 05/21/19 05/21/19 Range/Units 04:28 04:28 07:07 WBC 12.1 H (3.8-10.6) k/uL RBC 1.97 L (4.30-5.90) m/uL Hgb 7.3 L (13.0-17.5) gm/dL Hct 23.1 L (39.0-53.0) % MCV 117.0 H (80.0-100.0) fL MCH 37.2 H (25.0-35.0) pg RDW 19.7 H (11.5-15.5) % Macrocytosis Marked A Chloride 113 H (98-107) mmol/L Carbon Dioxide 18 L (22-30) mmol/L BUN 21 H (9-20) mg/dL Creatinine 1.32 H (0.66-1.25) mg/dL POC Glucose (mg/dL) 108 H (75-99) mg/dL Calcium 8.1 L (8.4-10.2) mg/dL 05/21/19 05/21/19 Range/Units 12:02 16:56 WBC (3.8-10.6) k/uL RBC (4.30-5.90) m/uL Hgb (13.0-17.5) gm/dL Hct (39.0-53.0) % MCV (80.0-100.0) fL MCH (25.0-35.0) pg RDW (11.5-15.5) % Macrocytosis Chloride (98-107) mmol/L Carbon Dioxide (22-30) mmol/L BUN (9-20) mg/dL Creatinine (0.66-1.25) mg/dL POC Glucose (mg/dL) 158 H 168 H (75-99) mg/dL Calcium (8.4-10.2) mg/dL
[2019-05-21 21:30] LABS: Glucose,Whole Blood 154 mg/dL (75-99)
[2019-05-21] MEDS: ATORVASTATIN 80 MG TAB PO SCH (21:58)
[2019-05-21] MEDS: VANCOMYCIN 1,250 MG in SODIUM CHLORIDE 0.9% 250 ML IVPB SCH (22:00)
[2019-05-21] MEDS: HYDROcodone/APAP 5-325MG 1 EACH TAB PO PRN (23:42)
[2019-05-22] MEDS: SODIUM CHLORIDE 0.9% 1,000 ML IV SCH ×2 (00:02→15:41)
[2019-05-22 06:12] LABS: Glucose,Whole Blood 92 mg/dL (75-99)
[2019-05-22] MEDS: CARVEDILOL 6.25 MG TAB PO SCH ×2 (06:14→18:06)
[2019-05-22] MEDS: LEVOTHYROXINE 125 MCG TAB PO SCH (06:14)
[2019-05-22] MEDS: INSULIN ASPART (NovoLOG) 100 UNIT/ML VIAL SQ SCH ×4 (06:14→21:26)
[2019-05-22] MEDS: PANTOPRAZOLE 40 MG TABLET PO SCH ×2 (06:14→18:06)
[2019-05-22 06:21] LABS: Anisocytosis Slight; Hypochromasia Moderate; MCH 36.7 pg (25.0-35.0); MCHC 31.3 g/dL (31.0-37.0); MCV 117.4 fL (80.0-100.0); Macrocytosis Marked; Mean Platelet Volume 7.4; Platelet Count 362 k/uL (150-450); RBC 1.66 m/uL (4.30-5.90); RDW 19.2 % (11.5-15.5); WBC 11.6 k/uL (3.8-10.6)
[2019-05-22 06:37] LABS: HCT 19.5 % (39.0-53.0); HGB 6.1 gm/dL (13.0-17.5)
[2019-05-22] MEDS: GABAPENTIN 300 MG CAP PO SCH ×4 (08:25→22:36)
[2019-05-22] MEDS: LOSARTAN 50 MG TAB PO SCH ×2 (08:25→22:36)
[2019-05-22] MEDS: HYDROCHLOROTHIAZIDE 25 MG TAB PO SCH (08:25)
[2019-05-22] MEDS: VIT A,C & E-LUTEIN-MINERALS 1 EACH TAB PO SCH (08:25)
[2019-05-22] MEDS: ASPIRIN 325 MG TAB PO SCH (08:25)
[2019-05-22] MEDS: cloNIDine HCL 0.1 MG TAB PO SCH ×3 (08:25→22:36)
[2019-05-22] MEDS: CLOPIDOGREL 75 MG TAB PO SCH (08:25)
[2019-05-22] MEDS: hydrALAZINE HCL 25 MG TAB PO SCH ×3 (08:25→22:36)
[2019-05-22] MEDS: NICOTINE 14MG/24HR PATCH TRANSDERM SCH (08:26)
[2019-05-22] MEDS: INSULIN DETEMIR (LEVEMIR) 100 UNIT/ML SYR SQ SCH (08:26)
[2019-05-22] MEDS: HYDROcodone/APAP 5-325MG 1 EACH TAB PO PRN ×2 (08:26→21:45)
[2019-05-22] MEDS: PIPERACILLIN-TAZOBACTAM 3.375 GM in SODIUM CHLORIDE 0.9% 100 ML IVPB SCH ×2 (08:26→15:35)
[2019-05-22] MEDS: HYDROXYUREA 500 MG CAP PO SCH (08:27)
[2019-05-22] MEDS: HEPARIN SODIUM,PORCINE 5,000 UNIT/ML 1 ML VIAL SQ SCH ×2 (08:27→22:35)
[2019-05-22 11:47] LABS: Anisocytosis Slight; Basophils % (A) 0 %; Eosinophils # (A) 0.3 k/uL (0-0.7); Eosinophils % (A) 3 %; HCT 20.1 % (39.0-53.0); Hypochromasia Moderate; Lymphocytes % (A) 9 %; MCH 36.6 pg (25.0-35.0); MCHC 31.1 g/dL (31.0-37.0); MCV 117.5 fL (80.0-100.0); Macrocytosis Marked; Mean Platelet Volume 8.4; Monocytes # (A) 0.5 k/uL (0-1.0); Monocytes % (A) 4 %; Neutrophils # (A) 9.7 k/uL (1.3-7.7); Neutrophils % (A) 83 %; Platelet Count 342 k/uL (150-450); RBC 1.71 m/uL (4.30-5.90); RDW 18.9 % (11.5-15.5); WBC 11.7 k/uL (3.8-10.6)
[2019-05-22 11:50] LABS: HGB 6.3 gm/dL (13.0-17.5)
--- NOTE | 2019-05-22 11:58 | P.PN ---
Subjective Progress Note Date: 05/22/19 this is a 68-year-old gentleman with known history of coronary artery disease and prior bypass grafting, history of aortic valve replacement with TAVR, who presented to the hospital with progressive discomfort in the right toe with gangrene. He underwent surgical intervention, had a right femoral endarterectomy with patch angioplasty, right distal popliteal endarterectomy, right anterior tibial artery endarterectomy and right tibial peroneal endarterectomy with from oral tibial bypass and amputation of the right fifth toe. Patient was seen and examined this morning, adjustments in medications were made and yesterday because of hypertension, today his blood pressure is under much better control. Objective - Vital Signs Vital signs: Vital Signs Temp 97.8 F 05/22/19 11:53 Pulse 65 05/22/19 11:53 Resp 18 05/22/19 11:53 BP 115/52 05/22/19 11:53 Pulse Ox 92 L 05/22/19 11:53 Intake & Output 05/21/19 05/22/19 05/22/19 18:59 06:59 18:59 Intake Total 1405 240 120 Output Total 300 200 Balance 1105 40 120 Weight 61 kg Intake: IV 825 Sodium Chloride 0.9% 1, 825 000 ml @ 75 mls/hr IV . [id number] [facility] Rx#:[id number] Intake, IV Titration 100 Amount Piperacillin-Tazobactam 3 100 .375 gm In Sodium Chloride 0.9% 100 ml @ 25 mls/hr IVPB Q8HR [facility] Rx# :[id number] Oral 480 240 120 Output: Urine 300 200 Other: Voiding Method Urinal Urinal Urinal # Voids 1 1 0 ABP, PAP, CO, CI - Last Documented Arterial Blood Pressure 129/121 - Exam PHYSICAL EXAMINATION: GENERAL:68-year-old gentleman in no acute distress at the time of my examination HEENT: Head is atraumatic, normocephalic. Pupils equal, round. Sclera anicteric. Conjunctiva are clear. Mucous membranes of the mouth are moist. Neck is supple. There is no elevated jugular venous pressure.] bruit is heard. HEART EXAMINATION: [Heart S1, [id number] murmur is heard.] CHEST EXAMINATION:[ Lungs are clear to auscultation and precussion. No chest wall tenderness is noted on palpation or with deep breathing.] ABDOMEN: [ Soft, nontender. Bowel sounds are heard. No organomegaly noted]. EXTREMITIES:1+ peripheral pulses, dressing noted to the right lower extremity NEUROLOGIC [patient is awake, alert and oriented ?-3.] . - Labs CBC & Chem 7: 05/22/19 11:28 05/21/19 04:28 Labs: Abnormal Lab Results - Last 24 Hours (Table) 05/21/19 05/21/19 05/21/19 Range/Units 12:02 16:56 21:27 WBC (3.8-10.6) k/uL RBC (4.30-5.90) m/uL Hgb (13.0-17.5) gm/dL Hct (39.0-53.0) % MCV (80.0-100.0) fL MCH (25.0-35.0) pg RDW (11.5-15.5) % Macrocytosis POC Glucose (mg/dL) 158 H 168 H 154 H (75-99) mg/dL Crossmatch 05/22/19 05/22/19 05/22/19 Range/Units 05:31 06:52 11:28 WBC 11.6 H 11.7 H (3.8-10.6) k/uL RBC 1.66 L 1.71 L (4.30-5.90) m/uL Hgb 6.1 L* 6.3 L* (13.0-17.5) gm/dL Hct 19.5 L* 20.1 L (39.0-53.0) % MCV 117.4 H 117.5 H (80.0-100.0) fL MCH 36.7 H 36.6 H (25.0-35.0) pg RDW 19.2 H 18.9 H (11.5-15.5) % Macrocytosis Marked A Marked A POC Glucose (mg/dL) (75-99) mg/dL Crossmatch See Detail Assessment and Plan Plan: assessment and plan #1 status post revascularization of the right lower extremity with amputation of the toe #2 history of coronary artery disease with prior bypass surgery #3 status post TAVR #4 hypertension, under much better control Number 5 hyperlipidemia #6 diabetes Plan From cardiology's perspective, we will recommend to continue this patient on his current medications he may be transferred to [facility] if needed. DNP note has been reviewed, I agree with a documented findings and plan of care. Patient was seen and examined.
[2019-05-22] MEDS: amLODIPine 10 MG TAB PO SCH (12:02)
[2019-05-22 12:21] LABS: Glucose,Whole Blood 88 mg/dL (75-99)
[2019-05-22 12:38] LABS: Poikilocytosis (M) Present; Polychromasia Present
--- NOTE | 2019-05-22 14:37 | P.PN ---
Subjective Progress Note Date: 05/22/19 Patient seen and examined. No issues overnight. Has good feeling in his right foot and feels warmer still. Sleepy today Objective - Vital Signs Vital signs: Vital Signs Temp 97.6 F 05/22/19 13:34 Pulse 50 L 05/22/19 13:34 Resp 16 05/22/19 13:34 BP 135/59 05/22/19 13:34 Pulse Ox 94 L 05/22/19 13:34 Intake & Output 05/21/19 05/22/19 05/22/19 18:59 06:59 18:59 Intake Total 1405 240 240 Output Total 300 200 200 Balance 1105 40 40 Weight 61 kg 61 kg Intake: IV 825 Sodium Chloride 0.9% 1, 825 000 ml @ 75 mls/hr IV . [id number] [facility] Rx#:[id number] Intake, IV Titration 100 Amount Piperacillin-Tazobactam 3 100 .375 gm In Sodium Chloride 0.9% 100 ml @ 25 mls/hr IVPB Q8HR [facility] Rx# :[id number] Oral 480 240 240 Blood Product 0 Rc As-1 Unit 0 [id number] Output: Urine 300 200 200 Other: Voiding Method Urinal Urinal Urinal # Voids 1 1 0 ABP, PAP, CO, CI - Last Documented Arterial Blood Pressure 129/121 - Exam No acute distress, resting comfortably at this time. No respiratory distress. Heart irregular Abdomen soft Bilateral lower extremities warm. wound vacs to right groin and lower leg intact with no leak. Incisions dry. Calf soft. No evidence of hematomas Right fifth toe incision clean, dry, intact. Motor intact. biphasic DP. Palpable bypass graft at knee - Labs CBC & Chem 7: 05/22/19 11:28 05/21/19 04:28 Labs: Abnormal Lab Results - Last 24 Hours (Table) 05/21/19 05/21/19 05/22/19 Range/Units 16:56 21:27 05:31 WBC 11.6 H (3.8-10.6) k/uL RBC 1.66 L (4.30-5.90) m/uL Hgb 6.1 L* (13.0-17.5) gm/dL Hct 19.5 L* (39.0-53.0) % MCV 117.4 H (80.0-100.0) fL MCH 36.7 H (25.0-35.0) pg RDW 19.2 H (11.5-15.5) % Neutrophils # (1.3-7.7) k/uL Macrocytosis Marked A POC Glucose (mg/dL) 168 H 154 H (75-99) mg/dL Crossmatch 05/22/19 05/22/19 Range/Units 06:52 11:28 WBC 11.7 H (3.8-10.6) k/uL RBC 1.71 L (4.30-5.90) m/uL Hgb 6.3 L* (13.0-17.5) gm/dL Hct 20.1 L (39.0-53.0) % MCV 117.5 H (80.0-100.0) fL MCH 36.6 H (25.0-35.0) pg RDW 18.9 H (11.5-15.5) % Neutrophils # 9.7 H (1.3-7.7) k/uL Macrocytosis Marked A POC Glucose (mg/dL) (75-99) mg/dL Crossmatch See Detail Assessment and Plan Assessment: 1. postoperative day #3 from right femoral endarterectomy with patch angioplasty, right below-knee popliteal/tibial endarterectomy with femoral to tibial bypass in situ 2. Right lower extremity 5th toe dry gangrene 3. Severe atherosclerotic disease of the bilateral lower extremities 4. Insulin-dependent diabetes mellitus 5. Coronary artery disease 6. Atrial fibrillation 7. Anemia, received worsened today, 6.1. Transfuse PRBC and recheck. 8. History of cerebellar stroke Plan: Transfuse 1 unit of PRBC, repeat labs. No evidence of active bleeding. Will monitor. Continue pain control. Increase activity as tolerated. Postoperative shoe for therapies
[2019-05-22 17:04] LABS: Glucose,Whole Blood 88 mg/dL (75-99)
--- NOTE | 2019-05-22 19:07 | P.PN ---
Subjective Progress Note Date: 05/22/19 Principal diagnosis: Fifth toe gangrene right This is a 68-year-old male with a past medical history of multiple medical problems, and was recently admitted for a gangrenous right 5th toe. Patient underwent a right femoral endarterectomy, right distal popliteal and tibial endarterectomy, and right femoral-tibial bypass of the great saphenous vein. Yesterday status post surgery patient was having some nausea and vomiting and was made nothing by mouth. This morning patient is not having any nausea or vomiting and is currently on clear liquid diet and tolerating well. Patient is stressing that he would like to go home today. is at the bedside. 05/22/2019 Patient denied any complaints of chest pain or shortness of breath. Patient underwent right femoral endarterectomy with patch angioplasty and right distal popliteal endarterectomy, right anterior tibial artery endarterectomy and right tibial peroneal endarterectomy with femoral-tibial bypass and amputation of the right fifth toe. No fever no chills. No headache or dizziness or lightheadedness. Review of systems: Cardiovascular: Denies any palpitations or chest pain Respiratory: Denies any shortness of breath, cough, or hemoptysis Abdomen: Denies any nausea or vomiting, tolerating clear liquid diet Genitourinary: Denies any burning or pain with urination, using a urinal Nervous system: Denies any numbness or weakness Extremities: Denies any weakness or pain in extremities, able to move them all equally Current medications reviewed. Active Medications Generic Name Dose Route Start Last Admin Trade Name Freq PRN Reason Stop Dose Admin Hydrocodone Bitart/Acetaminophen 1 each 05/14/19 17:55 05/22/19 08:26 [place] 5-325 PO 1 each Q6HR PRN Administration Pain Alprazolam 0.25 mg 05/14/19 17:55 05/17/19 20:38 Xanax PO 0.25 mg TID PRN Administration Anxiety Amlodipine Besylate 10 mg 05/21/19 12:00 05/22/19 12:02 Norvasc PO 10 mg 1200 [facility] Administration Aspirin 325 mg 05/21/19 09:00 05/22/19 08:25 Aspirin PO 325 mg DAILY [facility] Administration Atorvastatin Calcium 80 mg 05/14/19 21:00 05/21/19 21:58 Lipitor PO 80 mg HS [facility] Administration Carvedilol 6.25 mg 05/21/19 17:30 05/22/19 18:06 Coreg PO 6.25 mg AC-BID [facility] Administration Clonidine 0.1 mg 05/18/19 18:13 05/21/19 18:22 Catapres PO 0.1 mg Q4HR PRN Administration Hypertension Clonidine 0.1 mg 05/21/19 16:00 05/22/19 15:34 Catapres PO 0.1 mg TID [facility] Administration Clopidogrel Bisulfate 75 mg 05/15/19 09:00 05/22/19 08:25 Plavix PO 75 mg DAILY [facility] Administration Gabapentin 300 mg 05/14/19 18:00 05/22/19 18:06 Neurontin PO 300 mg QID [facility] Administration Heparin Sodium (Porcine) 5,000 unit 05/14/19 21:00 05/22/19 08:27 Heparin SQ 5,000 unit Q12HR [facility] Administration Hydralazine HCl 75 mg 05/20/19 09:00 05/22/19 15:34 Apresoline PO 75 mg TID [facility] Administration Hydralazine HCl 10 mg 05/20/19 10:15 05/20/19 14:16 Apresoline IVP 10 mg Q4HR PRN Administration Blood Pressure - High Hydrochlorothiazide 25 mg 05/17/19 13:15 05/22/19 08:25 Hydrodiuril PO 25 mg DAILY [facility] Administration Hydromorphone HCl 0.5 mg 05/14/19 17:55 05/20/19 03:31 Dilaudid IVP 0.5 mg Q6HR PRN Administration Severe Pain Hydroxyurea 1,000 mg 05/19/19 09:00 05/20/19 09:15 Hydrea PO 1,000 mg SUSA [facility] Administration Hydroxyurea 500 mg 05/15/19 09:00 05/22/19 08:27 Hydrea PO 500 mg MOTUWETHFR [facility] Administration Piperacillin Sod/Tazobactam 100 mls @ 25 mls/hr 05/15/19 00:00 05/22/19 15:35 Sod 3.375 gm/ Sodium Chloride IVPB 25 mls/hr Q8HR [facility] Administration Sodium Chloride 1,000 mls @ 75 mls/hr 05/20/19 10:30 05/22/19 15:41 Saline 0.9% IV 75 mls/hr .[id number] [facility] Administration Vancomycin HCl 1,250 mg/ 250 mls @ 125 mls/hr 05/20/19 21:00 05/21/19 22:00 Sodium Chloride IVPB 125 mls/hr HS [facility] Administration Insulin Aspart 0 unit 05/18/19 21:00 05/22/19 17:40 Novolog SQ Not Given ACHS [facility] Protocol Insulin Detemir 35 unit 05/15/19 09:00 05/22/19 08:26 Levemir SQ 35 unit DAILY [facility] Administration Levothyroxine Sodium 125 mcg 05/15/19 06:30 05/22/19 06:14 Synthroid PO 125 mcg DAILY@0630 [facility] Administration Losartan Potassium 50 mg 05/17/19 21:00 05/22/19 08:25 Cozaar PO 50 mg BID [facility] Administration Metoclopramide HCl 5 mg 05/20/19 10:15 05/20/19 10:28 Reglan IVP 5 mg Q6HR PRN Administration Nausea And Vomiting Multivitamins/Minerals 2 each 05/15/19 09:00 05/22/19 08:25 Ivite PO 2 each DAILY [facility] Administration Nicotine 1 patch 05/15/19 09:00 05/22/19 08:26 Habitrol 14mg/24hr Patch TRANSDERM 1 patch DAILY [facility] Administration Nitroglycerin 0.4 mg 05/14/19 11:49 Nitrostat SUBLINGUAL Q5M PRN Chest Pain Ondansetron HCl 4 mg 05/14/19 17:55 05/20/19 15:05 Zofran IVP 4 mg Q6HR PRN Administration Nausea And Vomiting Pantoprazole Sodium 40 mg 05/21/19 17:30 05/22/19 18:06 Protonix PO 40 mg AC-BID [facility] Administration Temazepam 15 mg 05/14/19 17:55 05/17/19 20:38 Restoril PO 15 mg HS PRN Administration Insomnia Tramadol HCl 50 mg 05/14/19 16:20 05/21/19 16:08 Ultram PO 50 mg Q6HR PRN Administration Pain Objective - Vital Signs Vital signs: Vital Signs Temp 97.6 F 05/22/19 13:34 Pulse 50 L 05/22/19 13:34 Resp 16 05/22/19 13:34 BP 135/59 05/22/19 13:34 Pulse Ox 94 L 05/22/19 13:34 Intake & Output 05/21/19 05/22/19 05/22/19 18:59 06:59 18:59 Intake Total 1405 240 240 Output Total 300 200 200 Balance 1105 40 40 Weight 61 kg Intake: IV 825 Sodium Chloride 0.9% 1, 825 000 ml @ 75 mls/hr IV . [id number] [facility] Rx#:[id number] Intake, IV Titration 100 Amount Piperacillin-Tazobactam 3 100 .375 gm In Sodium Chloride 0.9% 100 ml @ 25 mls/hr IVPB Q8HR [facility] Rx# :[id number] Oral 480 240 240 Blood Product 0 Rc As-1 Unit 0 [id number] Output: Urine 300 200 200 Other: Voiding Method Urinal Urinal Urinal # Voids 1 1 0 ABP, PAP, CO, CI - Last Documented Arterial Blood Pressure 129/121 - Exam Patient is alert and oriented 3. Vital signs are stable and currently on room air HEENT: Conjunctiva normal, EOMs intact Neck: No jugular venous distention, supple Cardiovascular: S1, S2 normal Respiratory: Breath sounds diminished bilaterally in the bases, no crackles or wheezing noted Abdomen: Soft, non-tender Legs: No edema or swelling noted, wound VAC dressing of the right leg is dry and intact, right foot dressing was dry and intact, right foot positive pulses noted on exam by Doppler, and right fifth toe surgical site is dry and intact with sutures noted. No swelling or redness at the site. Nervous system: No focal deficits. - Labs CBC & Chem 7: 05/22/19 11:28 05/21/19 04:28 Labs: Abnormal Lab Results - Last 24 Hours (Table) 05/21/19 05/21/19 05/22/19 Range/Units 16:56 21:27 05:31 WBC 11.6 H (3.8-10.6) k/uL RBC 1.66 L (4.30-5.90) m/uL Hgb 6.1 L* (13.0-17.5) gm/dL Hct 19.5 L* (39.0-53.0) % MCV 117.4 H (80.0-100.0) fL MCH 36.7 H (25.0-35.0) pg RDW 19.2 H (11.5-15.5) % Neutrophils # (1.3-7.7) k/uL Macrocytosis Marked A POC Glucose (mg/dL) 168 H 154 H (75-99) mg/dL Crossmatch 05/22/19 05/22/19 Range/Units 06:52 11:28 WBC 11.7 H (3.8-10.6) k/uL RBC 1.71 L (4.30-5.90) m/uL Hgb 6.3 L* (13.0-17.5) gm/dL Hct 20.1 L (39.0-53.0) % MCV 117.5 H (80.0-100.0) fL MCH 36.6 H (25.0-35.0) pg RDW 18.9 H (11.5-15.5) % Neutrophils # 9.7 H (1.3-7.7) k/uL Macrocytosis Marked A POC Glucose (mg/dL) (75-99) mg/dL Crossmatch See Detail Assessment and Plan Assessment: 1. Acute gangrene of the right fifth toe secondary to peripheral vascular disease, status post amputation of the fifth toe as well as right endarterectomies and right femoral tibial bypass surgery 2. Postop nausea, vomiting, possible acute gastritis, resolved 3. 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 Anemia, macrocytic anemia possibly nutritional 5. Diabetes type 2, uncontrolled with hypoglycemia 6. History of coronary artery disease 7. History of cerebrovascular accident, TIA 8. Hypertension 9. Hyperlipidemia 10. History of myocardial infarction 11. History of pneumonia 12. History of seizure disorder 13. Hypothyroidism 14. History of anemia 15. History of agent orange exposure 16. History of coronary artery disease, coronary artery bypass grafting 17. History of TAVR 18. Continuing ongoing nicotine dependence Recommendations and discussion: In this 68-year-old man who presented with multiple complex medical issues we will be continuing to closely monitor. Continue with current medications, management, and symptomatic treatment. Patient is now tolerating clear liquid diet and may advance as tolerated. Continue to monitor blood sugars per protocol. We'll continue to monitor vital signs. Patient has been restarted on aspirin and Plavix and is okay with vascular surgery at this time. Discussed with vascular surgery about follow-up and care of the patient. Patient is transferred to medical floor. Patient was refusing to work with PT/OT and discussed the importance of this with the patient and the at the bedside. Overall prognosis is guarded we will continue to monitor lab values in the morning. Further recommendations to follow. If hemodynamically stable, patient may possibly be ready for discharge in the next 24-48 hours. Time with Patient: Greater than 30
[2019-05-22 20:55] LABS: Anisocytosis Moderate; Basophils % (A) 0 %; Eosinophils # (A) 0.4 k/uL (0-0.7); Eosinophils % (A) 3 %; HCT 22.8 % (39.0-53.0); HGB 7.5 gm/dL (13.0-17.5); Hypochromasia Slight; Lymphocytes # (A) 0.8 k/uL (1.0-4.8); Lymphocytes % (A) 7 %; MCH 35.8 pg (25.0-35.0); MCHC 32.9 g/dL (31.0-37.0); Macrocytosis Marked; Mean Platelet Volume 7.7; Monocytes # (A) 0.4 k/uL (0-1.0); Monocytes % (A) 4 %; Neutrophils # (A) 9.6 k/uL (1.3-7.7); Neutrophils % (A) 84 %; Platelet Count 326 k/uL (150-450); RBC 2.09 m/uL (4.30-5.90); RDW 23.3 % (11.5-15.5); WBC 11.4 k/uL (3.8-10.6)
[2019-05-22 20:59] LABS: MCV 109.1 fL (80.0-100.0)
[2019-05-22 20:59] LABS: Glucose,Whole Blood 89 mg/dL (75-99)
[2019-05-22 21:10] LABS: Polychromasia Present
[2019-05-22] MEDS: VANCOMYCIN 1,250 MG in SODIUM CHLORIDE 0.9% 250 ML IVPB SCH (21:45)
[2019-05-22] MEDS: ATORVASTATIN 80 MG TAB PO SCH (22:35)
[2019-05-23] MEDS: PIPERACILLIN-TAZOBACTAM 3.375 GM in SODIUM CHLORIDE 0.9% 100 ML IVPB SCH ×4 (02:04→23:49)
[2019-05-23 06:10] LABS: Glucose,Whole Blood 44 mg/dL (75-99)
[2019-05-23 06:29] LABS: Glucose,Whole Blood 63 mg/dL (75-99)
[2019-05-23 06:53] LABS: Calcium 7.7 mg/dL (8.4-10.2); Potassium 3.3 mmol/L (3.5-5.1)
[2019-05-23 07:04] LABS: Glucose,Whole Blood 74 mg/dL (75-99)
[2019-05-23] MEDS: INSULIN ASPART (NovoLOG) 100 UNIT/ML VIAL SQ SCH ×4 (07:05→21:56)
[2019-05-23] MEDS: PANTOPRAZOLE 40 MG TABLET PO SCH ×2 (07:05→17:55)
[2019-05-23] MEDS: CARVEDILOL 6.25 MG TAB PO SCH ×2 (07:05→17:54)
[2019-05-23] MEDS: LEVOTHYROXINE 125 MCG TAB PO SCH (07:05)
[2019-05-23] MEDS: SODIUM CHLORIDE 0.9% 1,000 ML IV SCH ×2 (07:06→21:55)
[2019-05-23 08:08] LABS: Anisocytosis Moderate; Basophils % (A) 0 %; Eosinophils # (A) 0.4 k/uL (0-0.7); Eosinophils % (A) 3 %; HCT 25.3 % (39.0-53.0); HGB 7.8 gm/dL (13.0-17.5); Hypochromasia Slight; Lymphocytes % (A) 8 %; MCH 34.2 pg (25.0-35.0); MCV 110.4 fL (80.0-100.0); Macrocytosis Marked; Mean Platelet Volume 7.5; Monocytes # (A) 0.5 k/uL (0-1.0); Monocytes % (A) 4 %; Neutrophils # (A) 10.8 k/uL (1.3-7.7); Neutrophils % (A) 84 %; Platelet Count 393 k/uL (150-450); RBC 2.29 m/uL (4.30-5.90); RDW 22.9 % (11.5-15.5); WBC 12.8 k/uL (3.8-10.6)
[2019-05-23 08:58] LABS: Polychromasia Present
[2019-05-23] MEDS: ASPIRIN 325 MG TAB PO SCH (09:48)
[2019-05-23] MEDS: hydrALAZINE HCL 25 MG TAB PO SCH ×3 (09:48→20:17)
[2019-05-23] MEDS: HYDROCHLOROTHIAZIDE 25 MG TAB PO SCH (09:48)
[2019-05-23] MEDS: GABAPENTIN 300 MG CAP PO SCH ×4 (09:49→20:18)
[2019-05-23] MEDS: HEPARIN SODIUM,PORCINE 5,000 UNIT/ML 1 ML VIAL SQ SCH ×2 (09:49→20:18)
[2019-05-23] MEDS: cloNIDine HCL 0.1 MG TAB PO SCH ×3 (09:49→20:17)
[2019-05-23] MEDS: CLOPIDOGREL 75 MG TAB PO SCH (09:49)
[2019-05-23] MEDS: LOSARTAN 50 MG TAB PO SCH ×2 (09:49→20:18)
[2019-05-23] MEDS: VIT A,C & E-LUTEIN-MINERALS 1 EACH TAB PO SCH (09:50)
[2019-05-23] MEDS: NICOTINE 14MG/24HR PATCH TRANSDERM SCH (09:51)
[2019-05-23] MEDS: INSULIN DETEMIR (LEVEMIR) 100 UNIT/ML SYR SQ SCH (10:57)
[2019-05-23 11:33] LABS: Glucose,Whole Blood 144 mg/dL (75-99)
[2019-05-23] MEDS: amLODIPine 10 MG TAB PO SCH (12:35)
[2019-05-23] MEDS: HYDROXYUREA 500 MG CAP PO SCH (12:36)
[2019-05-23 16:25] LABS: Glucose,Whole Blood 193 mg/dL (75-99)
--- NOTE | 2019-05-23 18:36 | P.PN ---
Subjective Progress Note Date: 05/23/19 Patient seen and examined. No issues overnight. Has good feeling in his right foot and feels warmer still. Needed iyer reinserted today for inability to void with bladder scan of 700 Objective - Vital Signs Vital signs: Vital Signs Temp 98.5 F 05/23/19 08:00 Pulse 62 05/23/19 08:00 Resp 18 05/23/19 08:00 BP 150/63 05/23/19 08:00 Pulse Ox 96 05/23/19 08:00 Intake & Output 05/22/19 05/23/19 05/23/19 18:59 06:59 18:59 Intake Total 790 600 240 Output Total 200 500 Balance 590 100 240 Weight 61 kg 58 kg Intake: Intake, IV Titration 600 Amount Piperacillin-Tazobactam 3 100 .375 gm In Sodium Chloride 0.9% 100 ml @ 25 mls/hr IVPB Q8HR [facility] Rx# :[id number] Vancomycin 1,250 mg In 500 Sodium Chloride 0.9% 250 ml @ 125 mls/hr IVPB HS [facility] Rx#:[id number] Oral 480 240 Blood Product 310 Rc As-1 Unit 310 [id number] Output: Urine 200 500 Other: Voiding Method Urinal Urinal Urinal # Voids 0 3 1 ABP, PAP, CO, CI - Last Documented Arterial Blood Pressure 129/121 - Exam No acute distress, resting comfortably at this time. No respiratory distress. Heart irregular Abdomen soft. Iyer in place. Bilateral lower extremities warm. Wound vacs to right groin and lower leg intact with no leak. Incisions dry. Calf soft. No evidence of hematomas. Right fifth toe dressing dry, intact. Motor intact. Palpable bypass graft at knee - Labs CBC & Chem 7: 05/23/19 06:18 05/23/19 06:18 Labs: Abnormal Lab Results - Last 24 Hours (Table) 05/22/19 05/22/19 05/23/19 Range/Units 06:52 20:21 06:10 WBC 11.4 H (3.8-10.6) k/uL RBC 2.09 L (4.30-5.90) m/uL Hgb 7.5 L (13.0-17.5) gm/dL Hct 22.8 L (39.0-53.0) % MCV 109.1 H D (80.0-100.0) fL MCH 35.8 H (25.0-35.0) pg RDW 23.3 H (11.5-15.5) % Neutrophils # 9.6 H (1.3-7.7) k/uL Lymphocytes # 0.8 L (1.0-4.8) k/uL Macrocytosis Marked A Potassium (3.5-5.1) mmol/L Chloride (98-107) mmol/L Carbon Dioxide (22-30) mmol/L BUN (9-20) mg/dL Creatinine (0.66-1.25) mg/dL Glucose (74-99) mg/dL POC Glucose (mg/dL) 44 L (75-99) mg/dL Calcium (8.4-10.2) mg/dL Crossmatch See Detail 05/23/19 05/23/19 05/23/19 Range/Units 06:18 06:18 06:27 WBC 12.8 H (3.8-10.6) k/uL RBC 2.29 L (4.30-5.90) m/uL Hgb 7.8 L (13.0-17.5) gm/dL Hct 25.3 L (39.0-53.0) % MCV 110.4 H (80.0-100.0) fL MCH (25.0-35.0) pg RDW 22.9 H (11.5-15.5) % Neutrophils # 10.8 H (1.3-7.7) k/uL Lymphocytes # (1.0-4.8) k/uL Macrocytosis Marked A Potassium 3.3 L (3.5-5.1) mmol/L Chloride 113 H (98-107) mmol/L Carbon Dioxide 19 L (22-30) mmol/L BUN 26 H (9-20) mg/dL Creatinine 1.70 H (0.66-1.25) mg/dL Glucose 38 L* (74-99) mg/dL POC Glucose (mg/dL) 63 L (75-99) mg/dL Calcium 7.7 L (8.4-10.2) mg/dL Crossmatch 05/23/19 05/23/19 Range/Units 07:03 11:32 WBC (3.8-10.6) k/uL RBC (4.30-5.90) m/uL Hgb (13.0-17.5) gm/dL Hct (39.0-53.0) % MCV (80.0-100.0) fL MCH (25.0-35.0) pg RDW (11.5-15.5) % Neutrophils # (1.3-7.7) k/uL Lymphocytes # (1.0-4.8) k/uL Macrocytosis Potassium (3.5-5.1) mmol/L Chloride (98-107) mmol/L Carbon Dioxide (22-30) mmol/L BUN (9-20) mg/dL Creatinine (0.66-1.25) mg/dL Glucose (74-99) mg/dL POC Glucose (mg/dL) 74 L 144 H (75-99) mg/dL Calcium (8.4-10.2) mg/dL Crossmatch Assessment and Plan Assessment: 1. postoperative day #4 from right femoral endarterectomy with patch angioplasty, right below-knee popliteal/tibial endarterectomy with femoral to tibial bypass in situ 2. Right lower extremity 5th toe dry gangrene s/p amputation 3. Severe atherosclerotic disease of the bilateral lower extremities 4. Insulin-dependent diabetes mellitus 5. Coronary artery disease 6. Atrial fibrillation 7. Anemia 8. History of cerebellar stroke Plan: Hgb stable. No evidence of active bleeding. Increase activity as tolerated. Postoperative shoe for therapies. okay for dc to rehab from vascular standpoint, follow up with Dr Resendiz in 1 week 05/29. continue daily dressing change.
[2019-05-23] MEDS ORDERED: VANCOMYCIN TROUGH DUE 1 EACH MISC MISCELLANE ONE (20:00)
[2019-05-23] MEDS: ATORVASTATIN 80 MG TAB PO SCH (20:17)
[2019-05-23] MEDS: HYDROcodone/APAP 5-325MG 1 EACH TAB PO PRN (20:18)
[2019-05-23 20:44] LABS: Glucose,Whole Blood 208 mg/dL (75-99)
[2019-05-24 01:27] LABS: Glucose,Whole Blood 200 mg/dL (75-99)
--- NOTE | 2019-05-24 01:45 | P.PN ---
Subjective Progress Note Date: 05/23/19 Principal diagnosis: Fifth toe gangrene right This is a 68-year-old male with a past medical history of multiple medical problems, and was recently admitted for a gangrenous right 5th toe. Patient underwent a right femoral endarterectomy, right distal popliteal and tibial endarterectomy, and right femoral-tibial bypass of the great saphenous vein. Yesterday status post surgery patient was having some nausea and vomiting and was made nothing by mouth. This morning patient is not having any nausea or vomiting and is currently on clear liquid diet and tolerating well. Patient is stressing that he would like to go home today. is at the bedside. 05/22/2019 Patient denied any complaints of chest pain or shortness of breath. Patient underwent right femoral endarterectomy with patch angioplasty and right distal popliteal endarterectomy, right anterior tibial artery endarterectomy and right tibial peroneal endarterectomy with femoral-tibial bypass and amputation of the right fifth toe. No fever no chills. No headache or dizziness or lightheadedness. 05/23/2019 Patient denied any complaints of chest pain or shortness of breath. Right leg pain is better. Continued on IV antibiotics the form of vancomycin. Wound VAC is in place. Otherwise patient's blood sugar is 38 this morning. Hemoglobin improved to 7.8 with blood transfusion. No headache or dizziness or lightheadedness. No fever no chills. Anticipate discharged to rehab in next 24 hours. Review of systems: Cardiovascular: Denies any palpitations or chest pain Respiratory: Denies any shortness of breath, cough, or hemoptysis Abdomen: Denies any nausea or vomiting, tolerating clear liquid diet Genitourinary: Denies any burning or pain with urination, using a urinal Nervous system: Denies any numbness or weakness Extremities: Denies any weakness or pain in extremities, able to move them all equally Current medications reviewed. Active Medications Generic Name Dose Route Start Last Admin Trade Name Freq PRN Reason Stop Dose Admin Hydrocodone Bitart/Acetaminophen 1 each 05/14/19 17:55 05/22/19 08:26 Alb[place] 5-325 PO 1 each Q6HR PRN Administration Pain Alprazolam 0.25 mg 05/14/19 17:55 05/17/19 20:38 Xanax PO 0.25 mg TID PRN Administration Anxiety Amlodipine Besylate 10 mg 05/21/19 12:00 05/22/19 12:02 Norvasc PO 10 mg 1200 MAICO Administration Aspirin 325 mg 05/21/19 09:00 05/22/19 08:25 Aspirin PO 325 mg DAILY MAICO Administration Atorvastatin Calcium 80 mg 05/14/19 21:00 05/21/19 21:58 Lipitor PO 80 mg HS MAICO Administration Carvedilol 6.25 mg 05/21/19 17:30 05/22/19 18:06 Coreg PO 6.25 mg AC-BID MAICO Administration Clonidine 0.1 mg 05/18/19 18:13 05/21/19 18:22 Catapres PO 0.1 mg Q4HR PRN Administration Hypertension Clonidine 0.1 mg 05/21/19 16:00 05/22/19 15:34 Catapres PO 0.1 mg TID MAICO Administration Clopidogrel Bisulfate 75 mg 05/15/19 09:00 05/22/19 08:25 Plavix PO 75 mg DAILY MAICO Administration Gabapentin 300 mg 05/14/19 18:00 05/22/19 18:06 Neurontin PO 300 mg QID MAICO Administration Heparin Sodium (Porcine) 5,000 unit 05/14/19 21:00 05/22/19 08:27 Heparin SQ 5,000 unit Q12HR MAICO Administration Hydralazine HCl 75 mg 05/20/19 09:00 05/22/19 15:34 Apresoline PO 75 mg TID MAICO Administration Hydralazine HCl 10 mg 05/20/19 10:15 05/20/19 14:16 Apresoline IVP 10 mg Q4HR PRN Administration Blood Pressure - High Hydrochlorothiazide 25 mg 05/17/19 13:15 05/22/19 08:25 Hydrodiuril PO 25 mg DAILY MAICO Administration Hydromorphone HCl 0.5 mg 05/14/19 17:55 05/20/19 03:31 Dilaudid IVP 0.5 mg Q6HR PRN Administration Severe Pain Hydroxyurea 1,000 mg 05/19/19 09:00 05/20/19 09:15 Hydrea PO 1,000 mg SUSA MAICO Administration Hydroxyurea 500 mg 05/15/19 09:00 05/22/19 08:27 Hydrea PO 500 mg MOTUWETHFR MAICO Administration Piperacillin Sod/Tazobactam 100 mls @ 25 mls/hr 05/15/19 00:00 05/22/19 15:35 Sod 3.375 gm/ Sodium Chloride IVPB 25 mls/hr Q8HR MAICO Administration Sodium Chloride 1,000 mls @ 75 mls/hr 05/20/19 10:30 05/22/19 15:41 Saline 0.9% IV 75 mls/hr .[id number] MAICO Administration Vancomycin HCl 1,250 mg/ 250 mls @ 125 mls/hr 05/20/19 21:00 05/21/19 22:00 Sodium Chloride IVPB 125 mls/hr HS MAICO Administration Insulin Aspart 0 unit 05/18/19 21:00 05/22/19 17:40 [facility] SQ [facility] Insulin Detemir 35 unit 05/15/19 09:00 05/22/19 08:26 Levemir SQ 35 unit DAILY MAICO Administration Levothyroxine Sodium 125 mcg 05/15/19 06:30 05/22/19 06:14 Synthroid PO 125 mcg DAILY@0630 MAICO Administration Losartan Potassium 50 mg 05/17/19 21:00 05/22/19 08:25 Cozaar PO 50 mg BID MAICO Administration Metoclopramide HCl 5 mg 05/20/19 10:15 05/20/19 10:28 Reglan IVP 5 mg Q6HR PRN Administration Nausea And Vomiting Multivitamins/Minerals 2 each 05/15/19 09:00 05/22/19 08:25 Ivite PO 2 each DAILY MAICO Administration Nicotine 1 patch 05/15/19 09:00 05/22/19 08:26 Habitrol 14mg/24hr Patch TRANSDERM 1 patch DAILY MAICO Administration Nitroglycerin 0.4 mg 05/14/19 11:49 Nitrostat SUBLINGUAL Q5M PRN Chest Pain Ondansetron HCl 4 mg 05/14/19 17:55 05/20/19 15:05 Zofran IVP 4 mg Q6HR PRN Administration Nausea And Vomiting Pantoprazole Sodium 40 mg 05/21/19 17:30 05/22/19 18:06 Protonix PO 40 mg AC-BID MAICO Administration Temazepam 15 mg 05/14/19 17:55 05/17/19 20:38 Restoril PO 15 mg HS PRN Administration Insomnia Tramadol HCl 50 mg 05/14/19 16:20 07/08/19 16:08 Ultram PO 50 mg Q6HR PRN Administration Pain Objective - Vital Signs Vital signs: Vital Signs Temp 98.6 F 05/23/19 20:00 Pulse 64 05/23/19 20:00 Resp 18 05/23/19 20:00 BP 149/65 05/23/19 20:00 Pulse Ox 92 L 05/23/19 20:00 Intake & Output 05/23/19 05/23/19 05/24/19 06:59 18:59 06:59 Intake Total 600 645 Output Total 500 1000 Balance 100 -355 Weight 58 kg Intake: Intake, IV Titration 600 Amount Piperacillin-Tazobactam 3 100 .375 gm In Sodium Chloride 0.9% 100 ml @ 25 mls/hr IVPB Q8HR MAICO Rx# :[id number] Vancomycin 1,250 mg In 500 Sodium Chloride 0.9% 250 ml @ 125 mls/hr IVPB HS MAICO Rx#:[id number] Oral 645 Output: Urine 500 1000 Uretheral (Araujo) 500 Other: Voiding Method Urinal Indwelling Catheter Indwelling Catheter # Voids 3 1 ABP, PAP, CO, CI - Last Documented Arterial Blood Pressure 129/121 - Exam Patient is alert and oriented 3. Vital signs are stable and currently on room air HEENT: Conjunctiva normal, EOMs intact Neck: No jugular venous distention, supple Cardiovascular: S1, S2 normal Respiratory: Breath sounds diminished bilaterally in the bases, no crackles or wheezing noted Abdomen: Soft, non-tender Legs: No edema or swelling noted, wound VAC dressing of the right leg is dry and intact, right foot dressing was dry and intact, right foot positive pulses noted on exam by Doppler, and right fifth toe surgical site is dry and intact with sutures noted. No swelling or redness at the site. Nervous system: No focal deficits. - Labs CBC & Chem 7: 05/23/19 06:18 05/23/19 22:13 Labs: Abnormal Lab Results - Last 24 Hours (Table) 05/23/19 05/23/19 05/23/19 Range/Units 06:10 06:18 06:18 WBC 12.8 H (3.8-10.6) k/uL RBC 2.29 L (4.30-5.90) m/uL Hgb 7.8 L (13.0-17.5) gm/dL Hct 25.3 L (39.0-53.0) % MCV 110.4 H (80.0-100.0) fL RDW 22.9 H (11.5-15.5) % Neutrophils # 10.8 H (1.3-7.7) k/uL Macrocytosis Marked A Potassium 3.3 L (3.5-5.1) mmol/L Chloride 113 H (98-107) mmol/L Carbon Dioxide 19 L (22-30) mmol/L BUN 26 H (9-20) mg/dL Creatinine 1.70 H (0.66-1.25) mg/dL Glucose 38 L* (74-99) mg/dL POC Glucose (mg/dL) 44 L (75-99) mg/dL Calcium 7.7 L (8.4-10.2) mg/dL 05/23/19 05/23/19 05/23/19 Range/Units 06:27 07:03 11:32 WBC (3.8-10.6) k/uL RBC (4.30-5.90) m/uL Hgb (13.0-17.5) gm/dL Hct (39.0-53.0) % MCV (80.0-100.0) fL RDW (11.5-15.5) % Neutrophils # (1.3-7.7) k/uL Macrocytosis Potassium (3.5-5.1) mmol/L Chloride (98-107) mmol/L Carbon Dioxide (22-30) mmol/L BUN (9-20) mg/dL Creatinine (0.66-1.25) mg/dL Glucose (74-99) mg/dL POC Glucose (mg/dL) 63 L 74 L 144 H (75-99) mg/dL Calcium (8.4-10.2) mg/dL 05/23/19 05/23/19 Range/Units 16:24 20:43 WBC (3.8-10.6) k/uL RBC (4.30-5.90) m/uL Hgb (13.0-17.5) gm/dL Hct (39.0-53.0) % MCV (80.0-100.0) fL RDW (11.5-15.5) % Neutrophils # (1.3-7.7) k/uL Macrocytosis Potassium (3.5-5.1) mmol/L Chloride (98-107) mmol/L Carbon Dioxide (22-30) mmol/L BUN (9-20) mg/dL Creatinine (0.66-1.25) mg/dL Glucose (74-99) mg/dL POC Glucose (mg/dL) 193 H 208 H (75-99) mg/dL Calcium (8.4-10.2) mg/dL Assessment and Plan Assessment: 1. Acute gangrene of the right fifth toe secondary to peripheral vascular disease, status post amputation of the fifth toe as well as right endarterectomies and right femoral tibial bypass surgery 2. Postop nausea, vomiting, possible acute gastritis, resolved 3. 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 Anemia, macrocytic anemia possibly nutritional 5. Diabetes type 2, uncontrolled with hypoglycemia 6. History of coronary artery disease 7. History of cerebrovascular accident, TIA 8. Hypertension 9. Hyperlipidemia 10. History of myocardial infarction 11. History of pneumonia 12. History of seizure disorder 13. Hypothyroidism 14. History of anemia 15. History of agent orange exposure 16. History of coronary artery disease, coronary artery bypass grafting 17. History of TAVR 18. Continuing ongoing nicotine dependence Recommendations and discussion: In this 68-year-old man who presented with multiple complex medical issues we will be continuing to closely monitor. Continue with current medications, management, and symptomatic treatment. Patient is now tolerating clear liquid diet and may advance as tolerated. Continue to monitor blood sugars per protocol. We'll continue to monitor vital signs. Patient has been restarted on aspirin and Plavix and is okay with vascular surgery at this time. Discussed with vascular surgery about follow-up and care of the patient. Patient is transferred to medical floor. Patient was refusing to work with PT/OT and discussed the importance of this with the patient and the at the bedside. Overall prognosis is guarded we will continue to monitor lab values in the morning. Further recommendations to follow. If hemodynamically stable, patient may possibly be ready for discharge in the next 24-48 hours. Time with Patient: Greater than 30
[2019-05-24] MEDS: HYDROcodone/APAP 5-325MG 1 EACH TAB PO PRN ×2 (02:04→15:28)
[2019-05-24 05:28] VITALS: PULSE 67; RESP 17
[2019-05-24 06:29] LABS: Glucose,Whole Blood 181 mg/dL (75-99)
[2019-05-24] MEDS: LEVOTHYROXINE 125 MCG TAB PO SCH (07:01)
[2019-05-24] MEDS: PANTOPRAZOLE 40 MG TABLET PO SCH ×2 (07:01→15:28)
[2019-05-24] MEDS: CARVEDILOL 6.25 MG TAB PO SCH ×2 (07:01→15:32)
[2019-05-24] MEDS: INSULIN ASPART (NovoLOG) 100 UNIT/ML VIAL SQ SCH ×2 (07:02→15:06)
[2019-05-24] MEDS ORDERED: VANCOMYCIN 1,000 MG in SODIUM CHLORIDE 0.9% 250 ML IVPB SCH (09:00)
[2019-05-24 09:52] LABS: Calcium 7.4 mg/dL (8.4-10.2); Potassium 3.5 mmol/L (3.5-5.1)
[2019-05-24 10:02] LABS: Anisocytosis Moderate; Basophils % (A) 0 %; Eosinophils # (A) 0.2 k/uL (0-0.7); Eosinophils % (A) 3 %; HCT 22.5 % (39.0-53.0); HGB 7.2 gm/dL (13.0-17.5); Hypochromasia Slight; Lymphocytes % (A) 11 %; MCH 35.1 pg (25.0-35.0); MCHC 32.1 g/dL (31.0-37.0); MCV 109.4 fL (80.0-100.0); Macrocytosis Marked; Mean Platelet Volume 7.7; Monocytes # (A) 0.5 k/uL (0-1.0); Monocytes % (A) 5 %; Neutrophils # (A) 7.3 k/uL (1.3-7.7); Neutrophils % (A) 79 %; Platelet Count 386 k/uL (150-450); RBC 2.06 m/uL (4.30-5.90); RDW 22.6 % (11.5-15.5); WBC 9.3 k/uL (3.8-10.6)
[2019-05-24] MEDS: NICOTINE 14MG/24HR PATCH TRANSDERM SCH (10:05)
[2019-05-24] MEDS: PIPERACILLIN-TAZOBACTAM 3.375 GM in SODIUM CHLORIDE 0.9% 100 ML IVPB SCH (10:05)
[2019-05-24] MEDS: hydrALAZINE HCL 25 MG TAB PO SCH ×2 (10:06→15:32)
[2019-05-24] MEDS: HYDROXYUREA 500 MG CAP PO SCH (10:06)
[2019-05-24] MEDS: CLOPIDOGREL 75 MG TAB PO SCH (10:06)
[2019-05-24] MEDS: GABAPENTIN 300 MG CAP PO SCH ×2 (10:06→15:30)
[2019-05-24] MEDS: LOSARTAN 50 MG TAB PO SCH (10:06)
[2019-05-24] MEDS: ASPIRIN 325 MG TAB PO SCH (10:06)
[2019-05-24] MEDS: cloNIDine HCL 0.1 MG TAB PO SCH ×2 (10:06→15:32)
[2019-05-24] MEDS: VIT A,C & E-LUTEIN-MINERALS 1 EACH TAB PO SCH (10:06)
[2019-05-24] MEDS: amLODIPine 10 MG TAB PO SCH (10:06)
[2019-05-24] MEDS: HYDROCHLOROTHIAZIDE 25 MG TAB PO SCH (10:07)
[2019-05-24] MEDS: INSULIN DETEMIR (LEVEMIR) 100 UNIT/ML SYR SQ SCH (10:07)
[2019-05-24] MEDS: HEPARIN SODIUM,PORCINE 5,000 UNIT/ML 1 ML VIAL SQ SCH (10:07)
[2019-05-24 10:21] LABS: Polychromasia Present
[2019-05-24] MEDS ORDERED: POLYETHYLENE GLYCOL 3350 17 GM POWD.PACK PO STA (11:47)
[2019-05-24] MEDS ORDERED: POTASSIUM CHLORIDE ER 20 MEQ TAB.ER PO STA (11:48)
[2019-05-24 11:54] LABS: Glucose,Whole Blood 163 mg/dL (75-99)
[2019-05-24 12:09] VITALS: BP 128/61; TEMP 97.9
--- NOTE | 2019-05-24 12:53 | P.VSCSTY ---
Greater Saphenous Vein Mapping This is bilateral lower extremity greater saphenous vein mapping. Date of service: 05/17/2019 Vein quality and ultrasound appearance: The left leg vein is not visualized and the lesser saphenous is too small for use.. Vein size groin right : 5.5 x 7.4 groin left: [ ] High thigh right: 5.5 x 7.3 high thigh left: [ ] Mid thigh right: 4.8 x 6.2 mid thigh left: [ ] Above-knee right: 4.6 x 6.2 above-knee left: [ ] Below knee right: 4.1 x 4.7 below-knee left: [] Mid calf right: 2.6 x 3.4 mid calf left: [] Ankle right: 3.1 x 3.8 ankle left: Impression: Usable right leg greater saphenous vein..
--- NOTE | 2019-05-24 14:36 | P.DS ---
Providers Date of admission: 05/15/19 10:53 Expected date of discharge: 05/23/19 Attending physician: Kendy Camacho Consults: 05/14/19 11:51 Consult Physician Urgent Consulting Provider: Luis F Resendiz Consult Reason/Comments: Diabetic foot ulcer, peripheral vascular disease Do you want consulting provider notified?: Yes 05/17/19 10:41 Consult Physician Routine Consulting Provider: Rossi Whittaker Consult Reason/Comments: pre op lower leg bypass Do you want consulting provider notified?: Yes Primary care physician: [facility] Hospital Course: Discharge diagnosis 1. Acute gangrene of the right fifth toe secondary to peripheral vascular disease, status post amputation of the fifth toe as well as right endarterectomies and right femoral tibial bypass surgery. Continue with antibiotics and wound care. 2. Postop nausea, vomiting, possible acute gastritis, resolved 3. 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 Anemia, macrocytic anemia possibly nutritional 5. Diabetes type 2, uncontrolled with hyperglycemia 6. History of coronary artery disease 7. History of cerebrovascular accident, TIA 8. Hypertension 9. Hyperlipidemia 10. History of myocardial infarction 11. History of pneumonia 12. History of seizure disorder 13. Hypothyroidism 14. History of anemia 15. History of agent orange exposure 16. History of coronary artery disease, coronary artery bypass grafting 17. History of TAVR 18. Continuing ongoing nicotine dependence Hypokalemia replaced. This is a 68-year-old male with a past medical history of multiple medical problems, and was recently admitted for a gangrenous right 5th toe. Patient underwent a right femoral endarterectomy, right distal popliteal and tibial endarterectomy, and right femoral-tibial bypass of the great saphenous vein. status post surgery patient was having some nausea and vomiting and was made nothing by mouth. Patient is tolerating oral diet.. 05/22/2019 Patient denied any complaints of chest pain or shortness of breath. Patient underwent right femoral endarterectomy with patch angioplasty and right distal popliteal endarterectomy, right anterior tibial artery endarterectomy and right tibial peroneal endarterectomy with femoral-tibial bypass and amputation of the right fifth toe. No fever no chills. No headache or dizziness or lightheadedness. 05/23/2019 Patient denied any complaints of chest pain or shortness of breath. Right leg pain is better. Continued on IV antibiotics the form of vancomycin. Wound VAC is in place. Otherwise patient's blood sugar is 38 this morning. Hemoglobin improved to 7.8 with blood transfusion. No headache or dizziness or lightheadedness. No fever no chills. Anticipate discharged to rehab in next 24 hours. 05/24/2019 Patient is currently awake and alert and oriented. Denied any complaints of chest pain or shortness of breath. Blood sugar is fairly controlled today. No episodes of hypoglycemia. Potassium is being replaced. Patient says that she didn't have a bowel movement for the last few days.. Will be started on MiraLAX and Colace as needed. Patient is otherwise being continued on vancomycin and Zosyn. Continue with oral antibiotics upon discharge. In the form of clindamycin. Patient will need to follow up wound care clinic. Patient is otherwise hemodynamically stable. Physical examination Patient is alert and oriented 3. Vital signs are stable and currently on room air HEENT: Conjunctiva normal, EOMs intact Neck: No jugular venous distention, supple Cardiovascular: S1, S2 normal Respiratory: Breath sounds diminished bilaterally in the bases, no crackles or wheezing noted Abdomen: Soft, non-tender Legs: No edema or swelling noted, wound VAC dressing of the right leg is dry and intact, right foot dressing was dry and intact, right foot positive pulses noted on exam by Doppler, and right fifth toe surgical site is dry and intact with sutures noted. No swelling or redness at the site. Nervous system: No focal deficits. Vital Signs 05/24/19 04:00 Pulse Rate [ 67 Pulse Oximetery ] Respiratory 17 Rate Blood Pressure 123/67 [Right Arm] O2 Sat by Pulse 90 L Oximetry Total time taken greater than 35 minutes including 18 minutes for counseling and coordination of care. Patient Condition at Discharge: Fair Plan - Discharge Summary New Discharge Prescriptions: New hydrALAZINE HCL [Apresoline] 75 mg PO TID #90 tab cloNIDine HCL [Catapres] 0.1 mg PO TID #90 tab Losartan [Cozaar] 50 mg PO BID #60 tab Hydrochlorothiazide [Hydrodiuril] 25 mg PO DAILY #30 tab Potassium Chloride [K-Tab ER] 10 meq PO DAILY #30 tablet.er amLODIPine [Norvasc] 10 mg PO 1200 #30 tab Clindamycin [Cleocin] 450 mg PO Q6H 7 Days #28 capsule Sennosides/Docusate Sodium [Colace 2-in-1 Tablet] 1 each PO DAILY PRN #30 tablet PRN Reason: Constipation Continue Ferrous Sulfate [Iron (65 MG Elemental)] 325 mg PO DAILY Levothyroxine Sodium [Synthroid] 125 mcg PO DAILY Vit C/E/Zn/Coppr/Lutein/Zeaxan [Preservision Areds 2 Softgel] 2 cap PO DAILY Hydroxyurea [Hydrea] 500 mg PO MOTUWETHFR Hydroxyurea [Hydrea] 1,000 mg PO SUSA Aspirin 325 mg PO DAILY tab Clopidogrel [Plavix] 75 mg PO DAILY tab Insulin Glargine [Lantus] 35 unit SQ DAILY Carvedilol [Coreg] 3.125 mg PO BID Atorvastatin [Lipitor] 80 mg PO HS Gabapentin [Neurontin] 300 mg PO QID 3 Days #12 cap traMADol HCL [Ultram] 50 mg PO Q6HR PRN 3 Days #12 tablet PRN Reason: Pain Discontinued amLODIPine [Norvasc] 10 mg PO DAILY tab Losartan [Cozaar] 50 mg PO DAILY #30 tab Discharge Medication List Ferrous Sulfate [Iron (65 MG Elemental)] 325 mg PO DAILY 03/11/16 [History] Levothyroxine Sodium [Synthroid] 125 mcg PO DAILY 06/14/18 [History] Hydroxyurea [Hydrea] 1,000 mg PO SUSA 01/06/19 [History] Hydroxyurea [Hydrea] 500 mg PO MOTUWETHFR 01/06/19 [History] Vit C/E/Zn/Coppr/Lutein/Zeaxan [Preservision Areds 2 Softgel] 2 cap PO DAILY [History] Aspirin 325 mg PO DAILY tab 01/08/19 [Rx] Clopidogrel [Plavix] 75 mg PO DAILY tab 01/08/19 [Rx] Insulin Glargine [Lantus] 35 unit SQ DAILY 03/14/19 [History] Carvedilol [Coreg] 3.125 mg PO BID 03/16/19 [History] Atorvastatin [Lipitor] 80 mg PO HS 05/14/19 [History] Clindamycin [Cleocin] 450 mg PO Q6H 7 Days #28 capsule 05/23/19 [Rx] Gabapentin [Neurontin] 300 mg PO QID 3 Days #12 cap 05/23/19 [Rx] Hydrochlorothiazide [Hydrodiuril] 25 mg PO DAILY #30 tab 05/23/19 [Rx] Losartan [Cozaar] 50 mg PO BID #60 tab 05/23/19 [Rx] Potassium Chloride [K-Tab ER] 10 meq PO DAILY #30 tablet.er 05/23/19 [Rx] amLODIPine [Norvasc] 10 mg PO 1200 #30 tab 05/23/19 [Rx] cloNIDine HCL [Catapres] 0.1 mg PO TID #90 tab 05/23/19 [Rx] hydrALAZINE HCL [Apresoline] 75 mg PO TID #90 tab 05/23/19 [Rx] Sennosides/Docusate Sodium [Colace 2-in-1 Tablet] 1 each PO DAILY PRN #30 tablet 05/24/19 [Rx] traMADol HCL [Ultram] 50 mg PO Q6HR PRN 3 Days #12 tablet 05/24/19 [Rx] Follow up Appointment(s)/Referral(s): [facility],Clinic [Primary Care Provider] - 1-2 days Activity/Diet/Wound Care/Special Instructions: daily dressing change to right foot follow up with Dr Resendiz in one week 05/29 prevana wound vac (2) to be dc'd in at Dr Gentile office Discharge Disposition: TRANSFER TO SNF/ECF
[2019-05-24 15:33] VITALS: BMI 18.3
--- NOTE | 2019-05-24 15:45 | P.PN ---
Subjective Progress Note Date: 05/24/19 Principal diagnosis: Status post lower extremity revascularization. Nursing having difficulty removing central venous catheter placed via the left subclavian vein approach. Patient is scheduled to be dismissed to rehabilitation today. The central venous catheter is removed in total without incident. Excellent pulse is noted in the graft. Nursing reports the right foot wound looks well. Plan: Agree with current medical therapy and plan for rehabilitation. We'll see patient in office in 1-2 weeks in follow-up care. Objective - Vital Signs Vital signs: Vital Signs Temp 97.9 F 05/24/19 08:00 Pulse 67 05/24/19 08:00 Resp 17 05/24/19 08:00 BP 128/61 05/24/19 08:00 Pulse Ox 96 05/24/19 08:00 Intake & Output 05/23/19 05/24/19 05/24/19 18:59 06:59 18:59 Intake Total 645 240 Output Total 1000 800 400 Balance -355 -800 -160 Weight 57.8 kg 57.8 kg Intake: Oral 645 240 Output: Urine 1000 800 400 Uretheral (Araujo) 500 Other: Voiding Method Indwelling Catheter Indwelling Catheter Indwelling Catheter # Voids 1 0 # Bowel Movements 0 ABP, PAP, CO, CI - Last Documented Arterial Blood Pressure 129/121 - Labs CBC & Chem 7: 05/24/19 09:21 05/24/19 09:21 Labs: Abnormal Lab Results - Last 24 Hours (Table) 05/23/19 05/23/19 05/24/19 Range/Units 16:24 20:43 01:26 RBC (4.30-5.90) m/uL Hgb (13.0-17.5) gm/dL Hct (39.0-53.0) % MCV (80.0-100.0) fL MCH (25.0-35.0) pg RDW (11.5-15.5) % Macrocytosis Sodium (137-145) mmol/L Chloride (98-107) mmol/L Carbon Dioxide (22-30) mmol/L BUN (9-20) mg/dL Creatinine (0.66-1.25) mg/dL Glucose (74-99) mg/dL POC Glucose (mg/dL) 193 H 208 H 200 H (75-99) mg/dL Calcium (8.4-10.2) mg/dL 05/24/19 05/24/19 05/24/19 Range/Units 06:27 09:21 09:21 RBC 2.06 L (4.30-5.90) m/uL Hgb 7.2 L (13.0-17.5) gm/dL Hct 22.5 L (39.0-53.0) % MCV 109.4 H (80.0-100.0) fL MCH 35.1 H (25.0-35.0) pg RDW 22.6 H (11.5-15.5) % Macrocytosis Marked A Sodium 136 L (137-145) mmol/L Chloride 109 H (98-107) mmol/L Carbon Dioxide 19 L (22-30) mmol/L BUN 29 H (9-20) mg/dL Creatinine 1.72 H (0.66-1.25) mg/dL Glucose 131 H (74-99) mg/dL POC Glucose (mg/dL) 181 H (75-99) mg/dL Calcium 7.4 L (8.4-10.2) mg/dL 05/24/19 Range/Units 11:34 RBC (4.30-5.90) m/uL Hgb (13.0-17.5) gm/dL Hct (39.0-53.0) % MCV (80.0-100.0) fL MCH (25.0-35.0) pg RDW (11.5-15.5) % Macrocytosis Sodium (137-145) mmol/L Chloride (98-107) mmol/L Carbon Dioxide (22-30) mmol/L BUN (9-20) mg/dL Creatinine (0.66-1.25) mg/dL Glucose (74-99) mg/dL POC Glucose (mg/dL) 163 H (75-99) mg/dL Calcium (8.4-10.2) mg/dL
== END 2019-05-24 15:55 | DRG 253 ==
LOC: EC 08:58 → 3NMEDONC 12:06 → 4MS4W 16:17 → OBSVTOIN 05-15 10:53 → 4SSUR 05-17 16:54 → 2SICU 05-19 13:33 → 3SCARD 05-21 22:51
PROVIDERS: ADMIT Hospitalist; ATTEND Hospitalist
PROC: B54DZZZ Ultrasonography of Bilateral Lower Extremity Veins (ICD-10-PCS; 2019-05-15)
PROC: 04CP0ZZ Extirpation of Matter from Right Anterior Tibial Artery, Open Approach (ICD-10-PCS; 2019-05-19)
PROC: 04UK0KZ Supplement Right Femoral Artery with Nonautologous Tissue Substitute, Open Approach (ICD-10-PCS; 2019-05-19)
PROC: 041K09N Bypass Right Femoral Artery to Posterior Tibial Artery with Autologous Venous Tissue, Open Approach (ICD-10-PCS; 2019-05-19)
PROC: 0Y6X0Z0 Detachment at Right 5th Toe, Complete, Open Approach (ICD-10-PCS; 2019-05-19)
PROC: 30240N1 Transfusion of Nonautologous Red Blood Cells into Central Vein, Open Approach (ICD-10-PCS; 2019-05-19)
PROC: 04CK0ZZ Extirpation of Matter from Right Femoral Artery, Open Approach (ICD-10-PCS; principal; 2019-05-19 08:00)
PROC: 04CM0ZZ Extirpation of Matter from Right Popliteal Artery, Open Approach (ICD-10-PCS; 2019-05-19 08:00)
DX: E11.52 Type 2 diabetes mellitus with diabetic peripheral angiopathy with gangrene (principal); I70.263 Atherosclerosis of native arteries of extremities with gangrene, bilateral legs; I69.954 Hemiplegia and hemiparesis following unspecified cerebrovascular disease affecting left non-dominant side; L97.519 Non-pressure chronic ulcer of other part of right foot with unspecified severity; E11.42 Type 2 diabetes mellitus with diabetic polyneuropathy; E11.621 Type 2 diabetes mellitus with foot ulcer; E11.649 Type 2 diabetes mellitus with hypoglycemia without coma; D53.9 Nutritional anemia, unspecified; G40.909 Epilepsy, unspecified, not intractable, without status epilepticus; I48.91 Unspecified atrial fibrillation; I69.998 Other sequelae following unspecified cerebrovascular disease; K29.00 Acute gastritis without bleeding; E03.9 Hypothyroidism, unspecified; E78.5 Hyperlipidemia, unspecified; E87.6 Hypokalemia; F17.210 Nicotine dependence, cigarettes, uncomplicated; I10 Essential (primary) hypertension; I25.10 Atherosclerotic heart disease of native coronary artery without angina pectoris; I25.2 Old myocardial infarction; R62.7 Adult failure to thrive; R32 Unspecified urinary incontinence; Z79.890 Hormone replacement therapy; Z79.4 Long term (current) use of insulin; Z79.82 Long term (current) use of aspirin; Z79.02 Long term (current) use of antithrombotics/antiplatelets; Z79.899 Other long term (current) drug therapy; Z87.01 Personal history of pneumonia (recurrent); Z95.1 Presence of aortocoronary bypass graft; Z95.2 Presence of prosthetic heart valve; Z95.5 Presence of coronary angioplasty implant and graft; Z85.46 Personal history of malignant neoplasm of prostate; Z57.4 Occupational exposure to toxic agents in agriculture; Z66 Do not resuscitate; Z82.49 Family history of ischemic heart disease and other diseases of the circulatory system
CPT/HCPCS: 36415; 36430; 71045; 71046; 80048; 80053; 80061; 80202; 81001; 82550; 83036; 83605; 83735; 83880; 84132; 84484; 85025; 85027; 85610; 85730; 86850; 86900; 86901; 86920; 87040; 88304; 88305; 88311; 93005; 93970; 96361; 96365; 96366; 96375; 99285

== ENCOUNTER 2019-06-09 01:11 | Inpatient (IN) | payer OTHER, MEDICARE ==
[2019-06-09] MEDS ORDERED: SODIUM CHLORIDE 0.9% 1,000 ML IV STA (01:15)
[2019-06-09] MEDS ORDERED: PANTOPRAZOLE 40 MG/10 ML VIAL IVP STA (01:15)
[2019-06-09] MEDS ORDERED: ONDANSETRON 4 MG/2 ML VIAL IVP STA (01:15)
--- NOTE | 2019-06-09 01:24 | ED ---
GI Bleed HPI - General Chief complaint: GI Bleed Stated complaint: GI Bleed Time Seen by Provider: 06/09/19 01:12 Source: EMS, RN notes reviewed, old records reviewed Mode of arrival: EMS Limitations: no limitations - History of Present Illness Initial comments: This is a 68-year-old male the ER for evaluation. Patient presented today for evaluation of weakness vomiting of blood coffee ground blood and clots. Patient is a poor historian, is also at bedside but is unsure of situation. Patient sent in from [facility], history obtained from patient's chart and EMS. Patient is on Plavix and aspirin. MD complaint: blood streaked emesis, coffee ground emesis, gross hematemesis -: hour(s) Radiation: none Severity scale (1-10): 3 Quality: cramping Consistency: constant Improves with: none Worsens with: none Context: history of GI bleed Associated Symptoms: nausea, weakness - Related Data Home Medications Medication Instructions Recorded Confirmed Ferrous Sulfate [Iron (65 MG 325 mg PO DAILY 03/11/16 05/14/19 Elemental)] Levothyroxine Sodium [Synthroid] 125 mcg PO DAILY 06/14/18 05/14/19 Hydroxyurea [Hydrea] 1,000 mg PO SUSA 01/06/19 05/14/19 Hydroxyurea [Hydrea] 500 mg PO MOTUWETHFR 01/06/19 05/14/19 Vit C/E/Zn/Coppr/Lutein/Zeaxan 2 cap PO DAILY 01/06/19 05/14/19 [Preservision Areds 2 Softgel] Insulin Glargine [Lantus] 35 unit SQ DAILY 03/14/19 05/14/19 Carvedilol [Coreg] 3.125 mg PO BID 03/16/19 05/14/19 Atorvastatin [Lipitor] 80 mg PO HS 05/14/19 05/14/19 Previous Rx's Medication Instructions Recorded Aspirin 325 mg PO DAILY tab 01/08/19 Clopidogrel [Plavix] 75 mg PO DAILY tab 01/08/19 Clindamycin [Cleocin] 450 mg PO Q6H 7 Days #28 capsule 05/23/19 Gabapentin [Neurontin] 300 mg PO QID 3 Days #12 cap 05/23/19 Hydrochlorothiazide [Hydrodiuril] 25 mg PO DAILY #30 tab 05/23/19 Losartan [Cozaar] 50 mg PO BID #60 tab 05/23/19 Potassium Chloride [K-Tab ER] 10 meq PO DAILY #30 tablet.er 05/23/19 amLODIPine [Norvasc] 10 mg PO 1200 #30 tab 05/23/19 cloNIDine HCL [Catapres] 0.1 mg PO TID #90 tab 05/23/19 hydrALAZINE HCL [Apresoline] 75 mg PO TID #90 tab 05/23/19 Sennosides/Docusate Sodium [Colace 1 each PO DAILY PRN #30 tablet 05/24/19 2-in-1 Tablet] traMADol HCL [Ultram] 50 mg PO Q6HR PRN 3 Days #12 tablet 05/24/19 Allergies Allergy/AdvReac Type Severity Reaction Status Date / Time No Known Allergies Allergy Verified 06/09/19 01:20 Review of Systems ROS Statement: Those systems with pertinent positive or pertinent negative responses have been documented in the HPI. ROS Other: All systems not noted in ROS Statement are negative. Past Medical History Past Medical History: Coronary Artery Disease (CAD), CVA/TIA, Diabetes Mellitus, Hyperlipidemia, Hypertension, Myocardial Infarction ([place]), Neurologic Disorder, Pneumonia, Seizure Disorder, Thyroid Disorder, Vascular Disorder Additional Past Medical History / Comment(s): hx. 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 [employer], H AD SOME SKIN DISEASE WHERE HIS HANDS AND FEET WOULD BLISTER/PEEL HAD BX DONE- never found cause Last Myocardial Infarction Date:: 02/17/2016 History of Any Multi-Drug Resistant Organisms: None Reported Past Surgical History: Coronary Bypass/CABG, Heart Catheterization, Heart Catheterization With Stent, Orthopedic Surgery Additional Past Surgical History / Comment(s): 02/24/16 CABG quad bypass with a ortic valve replacement (TAVR), RT HAND INDEX FINGER BONE CHIP REMOVED, RT WRIST SURG., colonoscopy, bilateral cataract removal, Past Anesthesia/Blood Transfusion Reactions: No Reported Reaction Date of Last Stent Placement:: 2017 Past Psychological History: No Psychological Hx Reported Smoking Status: Former smoker Past Alcohol Use History: None Reported Past Drug Use History: None Reported - Past Family History Father Family Medical History: Coronary Artery Disease (CAD) Additional Family Medical History / Comment(s): VASCULAR PROBLEMS/valve replacement. Mother Family Medical History: Coronary Artery Disease (CAD) Additional Family Medical History / Comment(s): VASCULAR PROBLEMS HAD PIG VALVE. General Exam - General Exam Comments Initial Comments: pale Limitations: no limitations General appearance: alert, in no apparent distress Head exam: Present: atraumatic, normocephalic, normal inspection Eye exam: Present: normal appearance, PERRL, EOMI. Absent: scleral icterus, conjunctival injection, periorbital swelling ENT exam: Present: normal exam, mucous membranes moist Neck exam: Present: normal inspection. Absent: tenderness, meningismus, lymphadenopathy Respiratory exam: Present: normal lung sounds bilaterally. Absent: respiratory distress, wheezes, rales, rhonchi, stridor Cardiovascular Exam: Present: regular rate, normal rhythm, normal heart sounds. Absent: systolic murmur, diastolic murmur, rubs, gallop, clicks GI/Abdominal exam: Present: soft, normal bowel sounds. Absent: distended, te nderness, guarding, rebound, rigid Extremities exam: Present: normal inspection, full ROM, normal capillary refill. Absent: tenderness, pedal edema, joint swelling, calf tenderness Back exam: Present: normal inspection Neurological exam: Present: alert, oriented X3, CN II-XII intact Psychiatric exam: Present: normal affect, normal mood Skin exam: Present: warm, dry, intact, normal color. Absent: rash Course Vital Signs 06/09/19 06/09/19 01:12 01:42 Temperature 98.7 F Pulse Rate 70 68 Respiratory 18 18 Rate Blood Pressure 153/55 149/46 O2 Sat by Pulse 100 100 Oximetry - Reevaluation(s) Reevaluation #1: 06/09/19 02:00 Medical records reviewed Medical Decision Making - Medical Decision Making 68 male the ER for evaluation, patient presents today for evaluation of weakness, low hemoglobin. Patient be transfused and admitted - Lab Data Result diagrams: 06/09/19 01:27 06/09/19 01:27 Lab Results 06/09/19 06/09/19 06/09/19 Range/Units 01: 01:27 01:27 WBC 9.6 (3.8-10.6) k/uL RBC 1.93 L (4.30-5.90) m/uL Hgb 6.8 L* (13.0-17.5) gm/dL Hct 20.8 L (39.0-53.0) % MCV 107.8 H D (80.0-100.0) fL MCH 35.1 H (25.0-35.0) pg MCHC 32.5 (31.0-37.0) g/dL RDW 19.8 H (11.5-15.5) % Plt Count 703 H (150-450) k/uL Neutrophils % 72 % Lymphocytes % 15 % Monocytes % 6 % Eosinophils % 4 % Basophils % 1 % Neutrophils # 7.0 (1.3-7.7) k/uL Lymphocytes # 1.4 (1.0-4.8) k/uL Monocytes # 0.6 (0-1.0) k/uL Eosinophils # 0.4 (0-0.7) k/uL Basophils # 0.1 (0-0.2) k/uL Hypochromasia Slight Anisocytosis Slight Macrocytosis Marked A Sodium 128 L (137-145) mmol/L Potassium 4.6 (3.5-5.1) mmol/L Chloride 95 L (98-107) mmol/L Carbon Dioxide 22 (22-30) mmol/L Anion Gap 11 mmol/L BUN 49 H (9-20) mg/dL Creatinine 1.24 (0.66-1.25) mg/dL Est GFR (CKD-EPI)AfAm 68 (>60 ml/min/1.73 sqM) Est GFR (CKD-EPI)NonAf 59 (>60 ml/min/1.73 sqM) Glucose 175 H (74-99) mg/dL Plasma Lactic Acid Stiven 1.2 (0.7-2.0) mmol/L Calcium 9.7 (8.4-10.2) mg/dL Magnesium 1.6 (1.6-2.3) mg/dL Total Bilirubin 0.3 (0.2-1.3) mg/dL AST 18 (17-59) U/L ALT 17 L (21-72) U/L Alkaline Phosphatase 99 (38-126) U/L Total Protein 5.6 L (6.3-8.2) g/dL Albumin 2.8 L (3.5-5.0) g/dL Lipase 22 L (23-300) U/L - EKG Data -: EKG Interpreted by Me (EKG shows sinus rhythm rate of 69, MA 180, QRS 122, QTc 454) Disposition Clinical Impression: GI bleed, Anemia, Acute kidney injury, Hyponatremia Disposition: ADMITTED IP TO THIS HOSP Condition: Fair Is patient prescribed a controlled substance at d/c from ED?: No Referrals: [facility],Clinic [Primary Care Provider] - 1-2 days
[2019-06-09 02:13] LABS: Anisocytosis Slight; Basophils # (A) 0.1 k/uL (0-0.2); Basophils % (A) 1 %; Eosinophils # (A) 0.4 k/uL (0-0.7); Eosinophils % (A) 4 %; HCT 20.8 % (39.0-53.0); Hypochromasia Slight; Lymphocytes # (A) 1.4 k/uL (1.0-4.8); Lymphocytes % (A) 15 %; MCH 35.1 pg (25.0-35.0); MCHC 32.5 g/dL (31.0-37.0); Macrocytosis Marked; Mean Platelet Volume 6.6; Monocytes # (A) 0.6 k/uL (0-1.0); Monocytes % (A) 6 %; Neutrophils % (A) 72 %; Platelet Count 703 k/uL (150-450); RBC 1.93 m/uL (4.30-5.90); RDW 19.8 % (11.5-15.5); WBC 9.6 k/uL (3.8-10.6)
[2019-06-09 02:19] LABS: Albumin 2.8 g/dL (3.5-5.0); Calcium 9.7 mg/dL (8.4-10.2); Magnesium 1.6 mg/dL (1.6-2.3); Potassium 4.6 mmol/L (3.5-5.1); Total Bilirubin 0.3 mg/dL (0.2-1.3); Total Protein 5.6 g/dL (6.3-8.2)
[2019-06-09 02:24] LABS: HGB 6.8 gm/dL (13.0-17.5)
[2019-06-09 02:25] LABS: MCV 107.8 fL (80.0-100.0)
[2019-06-09 02:34] LABS: INR 1.1 (<1.2); Partial Thromboplastin Time 23.4 sec (22.0-30.0); Prothrombin Time 11.4 sec (9.0-12.0)
[2019-06-09] MEDS ORDERED: SODIUM CHLORIDE 0.9% 1,000 ML IV ONE (02:52)
[2019-06-09 06:32] LABS: Glucose,Whole Blood 182 mg/dL (75-99)
[2019-06-09] MEDS: INSULIN ASPART (NovoLOG) 100 UNIT/ML VIAL SQ SCH ×4 (06:51→21:18)
[2019-06-09] MEDS: PANTOPRAZOLE 40 MG/10 ML VIAL IVP SCH ×2 (08:19→19:57)
[2019-06-09 09:05] LABS: Anisocytosis Moderate; Basophils % (A) 0 %; Eosinophils # (A) 0.2 k/uL (0-0.7); Eosinophils % (A) 3 %; HCT 21.1 % (39.0-53.0); Lymphocytes # (A) 1.5 k/uL (1.0-4.8); Lymphocytes % (A) 16 %; MCH 33.5 pg (25.0-35.0); MCHC 31.4 g/dL (31.0-37.0); MCV 106.6 fL (80.0-100.0); Macrocytosis Marked; Mean Platelet Volume 7.2; Monocytes # (A) 0.5 k/uL (0-1.0); Monocytes % (A) 6 %; Neutrophils # (A) 6.4 k/uL (1.3-7.7); Neutrophils % (A) 72 %; Platelet Count 587 k/uL (150-450); RBC 1.97 m/uL (4.30-5.90); RDW 20.6 % (11.5-15.5); WBC 8.9 k/uL (3.8-10.6)
[2019-06-09 09:09] LABS: HGB 6.6 gm/dL (13.0-17.5)
[2019-06-09 12:11] VITALS: BMI 27.2
[2019-06-09 12:19] LABS: Glucose,Whole Blood 162 mg/dL (75-99)
[2019-06-09 15:13] LABS: Anisocytosis Moderate; Basophils # (A) 0.1 k/uL (0-0.2); Basophils % (A) 1 %; Eosinophils # (A) 0.2 k/uL (0-0.7); Eosinophils % (A) 1 %; Lymphocytes # (A) 1.8 k/uL (1.0-4.8); Lymphocytes % (A) 15 %; MCH 34.3 pg (25.0-35.0); MCHC 32.7 g/dL (31.0-37.0); MCV 104.8 fL (80.0-100.0); Macrocytosis Marked; Mean Platelet Volume 7.5; Monocytes # (A) 0.9 k/uL (0-1.0); Monocytes % (A) 7 %; Neutrophils # (A) 8.8 k/uL (1.3-7.7); Neutrophils % (A) 74 %; Platelet Count 647 k/uL (150-450); RDW 20.6 % (11.5-15.5); WBC 11.9 k/uL (3.8-10.6)
[2019-06-09 15:14] LABS: HGB 6.9 gm/dL (13.0-17.5)
[2019-06-09] MEDS ORDERED: traMADol 50 MG TAB PO PRN (16:59)
[2019-06-09] MEDS ORDERED: MAGNESIUM HYDROXIDE 2,400 MG/10 ML CUP PO PRN (16:59)
[2019-06-09 17:00] LABS: Glucose,Whole Blood 154 mg/dL (75-99)
[2019-06-09] MEDS ORDERED: ALPRAZolam 0.25 MG TAB PO PRN (17:01)
[2019-06-09] MEDS ORDERED: HYDROcodone/APAP 5-325MG 1 EACH TAB PO PRN (17:01)
[2019-06-09] MEDS: GABAPENTIN 300 MG CAP PO SCH ×2 (17:24→21:17)
[2019-06-09] MEDS: CARVEDILOL 3.125 MG TAB PO SCH (17:24)
[2019-06-09] MEDS: HEPARIN SODIUM,PORCINE 5,000 UNIT/ML 1 ML VIAL SQ SCH (17:34)
--- NOTE | 2019-06-09 19:31 | HP ---
HISTORY AND PHYSICAL DATE OF SERVICE: 06/09/2019 CHIEF COMPLAINT: GI bleed. HISTORY OF PRESENT ILLNESS: This 68-year-old gentleman with a past medical history of multiple medical problems including history of CAD, CVA, TIA, diabetes, hypertension, hyperlipidemia, history of seizure disorder, hypothyroidism, history of prostate cancer, CAD, CABG being followed by Dr. Milligan in [facility]. He was recently admitted to [facility] with features of acute gangrene of the right 5th toe secondary to peripheral vascular disease. The patient underwent amputation as well as endarterectomies and as well as right tibial femoral bypass surgery. The patient apparently was vomiting blood clots and patient also had coffee-grounds emesis and some bleeding per rectum and the patient also complains of weakness and the patient came to [facility] and was admitted for further evaluation and treatment. Initial hemoglobin was only 6.8. Transfusion being arranged. Otherwise sodium is 128. Gastroenterology, Dr. Hollis's evaluation in progress. There is no history of fever, rigors, chills at this time. PAST MEDICAL HISTORY: CAD, CVA, TIA, diabetes type 2, hypertension, hyperlipidemia, history of myocardial infarction, history of pneumonia, seizure disorder, history of CAD, CABG stent. MEDICATIONS: Prior to admission include home medications are: 1. Ultram 50 mg q.6h p.r.n. 2. Apresoline 75 mg p.o. t.i.d. 3. Catapres 0.1 p.o. t.i.d. 4. Norvasc 10 mg p.o. daily. 5. PreserVision 2 mg p.o. daily. 7. Calmoseptine 1 application topically t.i.d. 8. Milk of magnesia 7.2 g daily p.r.n. 9. Cozaar 50 mg p.o. b.i.d. 10.Synthroid 125 mcg p.o. daily. 11.Lantus 15 units subcu daily. 12.Hydrea 1000 mg Tuesday and Tuesday, 500 mg Tuesday, Tuesday, Tuesday, and Tuesday. 13.HydroDIURIL 25 mg p.o. daily. 14.Neurontin 300 mg p.o. q.i.d. 15.Iron sulfate 320 mg p.o. b.i.d. 16.Plavix 75 mg p.o. daily. 17.Coreg 3.125 mg p.o. b.i.d. 18.Lipitor 80 mg q.h.s. 19.Aspirin 320 mg p.o. daily. ALLERGIES: None. FAMILY HISTORY: History of CAD, vascular problems, valve replacement. SOCIAL HISTORY: Previous history of smoking. No history of current smoking. No alcohol. REVIEW OF SYSTEMS: ENT: Diminished vision. Diminished hearing. CARDIOVASCULAR: No angina or palpitations. RESPIRATORY: As mentioned earlier. GASTROINTESTINAL: As mentioned earlier. : No dysuria. NERVOUS SYSTEM: No numbness or weakness. ALLERGY/IMMUNOLOGY: No asthma or hayfever. MUSCULOSKELETAL: As mentioned earlier. HEMATOLOGY/ONCOLOGY: As mentioned earlier. ENDOCRINE: As mentioned earlier. CONSTITUTIONAL: As mentioned earlier. DERMATOLOGY: Negative. RHEUMATOLOGY: Negative. PSYCHIATRY as mentioned earlier. VASCULAR as mentioned earlier. PHYSICAL EXAMINATION: Alert and oriented x2. Pulse 72, blood pressure 150/53, respirations 16, temperature 99.1, pulse ox 98% on room air. HEENT: Conjunctivae normal. Oral mucosa moist. NECK is no jugular venous distention. No carotid bruit. No lymph node enlargement. Cardiovascular system: S1, S2 muffled. No S3, no S4. RESPIRATORY: Breath sounds diminished in the bases. No rhonchi. No crackles. ABDOMEN: Soft, mild diffuse distention. LEGS status post recent surgery. NERVOUS SYSTEM: Higher functions as mentioned earlier. Moves all four limbs. No focal motor or sensory deficits. LYMPHATICS: No lymph nodes palpable in the neck, axillae or groin. SKIN: No ulcers. No rashes. As mentioned earlier. JOINTS: No active deforming arthropathy. LABS: WBC 7.2, hemoglobin 6.9. Otherwise glucose 162. ASSESSMENT: 1. Coffee-ground emesis and hematemesis, possible upper gastrointestinal bleeding, rule out peptic ulcer disease. 2. Acute blood loss anemia from upper gastrointestinal bleeding. 3. History of recent gangrene of the right 5th toe secondary to peripheral vascular disease, status post amputation as well as right endarterectomies and right femoral tibial bypass surgery. 4. History of coronary artery disease. 5. History of cerebrovascular accident, transient ischemic attack. 6. Diabetes mellitus type 2. 7. Hypertension. 8. Hyperlipidemia. 9. History of myocardial infarction. 10.History of seizure disorder. 11.History of hypothyroidism. 12.History of prostate cancer. 13.History of hypothyroidism. 14.History of iron deficiency anemia. 15.History of peripheral vascular disease. 16.History of Agent Lajas exposure. 17.History of coronary artery disease, coronary artery bypass grafting stent. 18.History of TAVR. 19.History of nicotine dependence. RECOMMENDATIONS AND DISCUSSION: Recommend to continue current medications, symptomatic treatment. Otherwise, at this time, I recommend 1 unit transfusion cautiously with Lasix 20 mg after transfusion, otherwise monitor H and H Q.6 and also transfuse periodically. Gastroenterology evaluation. Possible EGD. Avoid antiplatelet agents at this time. Prognosis guarded. I would also recommend vascular surgery evaluation also. Prognosis guarded. Continue the rest of medications. Guarded prognosis. Further recommendations to follow. See orders for details. MMODL / IJN: [id number] / MTDD
[2019-06-09] MEDS: LOSARTAN 50 MG TAB PO SCH (19:57)
[2019-06-09] MEDS: ATORVASTATIN 80 MG TAB PO SCH (19:57)
[2019-06-09] MEDS ORDERED: FUROSEMIDE 10 MG/ML 2 ML VIAL IV ONE (20:45)
[2019-06-09 20:53] LABS: Glucose,Whole Blood 220 mg/dL (75-99)
[2019-06-09] MEDS: cloNIDine HCL 0.1 MG TAB PO SCH (21:17)
[2019-06-09] MEDS: hydrALAZINE HCL 25 MG TAB PO SCH (21:17)
[2019-06-10] MEDS: HEPARIN SODIUM,PORCINE 5,000 UNIT/ML 1 ML VIAL SQ SCH ×4 (00:29→22:35)
[2019-06-10 03:00] LABS: Anisocytosis Moderate; Basophils % (A) 0 %; Eosinophils # (A) 0.2 k/uL (0-0.7); Eosinophils % (A) 1 %; HCT 23.9 % (39.0-53.0); HGB 7.8 gm/dL (13.0-17.5); Lymphocytes # (A) 1.5 k/uL (1.0-4.8); Lymphocytes % (A) 11 %; MCH 33.2 pg (25.0-35.0); MCHC 32.6 g/dL (31.0-37.0); MCV 101.9 fL (80.0-100.0); Mean Platelet Volume 7.4; Monocytes # (A) 0.7 k/uL (0-1.0); Monocytes % (A) 5 %; Neutrophils % (A) 81 %; Platelet Count 555 k/uL (150-450); RBC 2.34 m/uL (4.30-5.90); RDW 21.9 % (11.5-15.5); WBC 13.7 k/uL (3.8-10.6)
[2019-06-10 03:02] LABS: Macrocytosis Marked
[2019-06-10 06:15] LABS: Glucose,Whole Blood 134 mg/dL (75-99)
[2019-06-10] MEDS: INSULIN ASPART (NovoLOG) 100 UNIT/ML VIAL SQ SCH ×4 (06:16→22:34)
[2019-06-10] MEDS: LEVOTHYROXINE 125 MCG TAB PO SCH (06:29)
[2019-06-10] MEDS: CARVEDILOL 3.125 MG TAB PO SCH ×2 (06:29→16:50)
[2019-06-10 07:08] LABS: Anisocytosis Moderate; Basophils % (A) 0 %; Eosinophils # (A) 0.3 k/uL (0-0.7); Eosinophils % (A) 3 %; HCT 24.5 % (39.0-53.0); HGB 8.1 gm/dL (13.0-17.5); Lymphocytes # (A) 1.7 k/uL (1.0-4.8); Lymphocytes % (A) 14 %; MCV 99.8 fL (80.0-100.0); Macrocytosis Moderate; Mean Platelet Volume 6.6; Monocytes # (A) 0.6 k/uL (0-1.0); Monocytes % (A) 5 %; Neutrophils # (A) 9.4 k/uL (1.3-7.7); Neutrophils % (A) 76 %; Platelet Count 565 k/uL (150-450); Poikilocytosis Slight; RBC 2.46 m/uL (4.30-5.90); WBC 12.3 k/uL (3.8-10.6)
[2019-06-10 07:18] LABS: Calcium 8.8 mg/dL (8.4-10.2); Potassium 4.3 mmol/L (3.5-5.1)
[2019-06-10] MEDS ORDERED: INSULIN DETEMIR (LEVEMIR) 100 UNIT/ML SYR SQ SCH (09:00)
[2019-06-10] MEDS: PANTOPRAZOLE 40 MG/10 ML VIAL IVP SCH ×2 (09:04→22:34)
[2019-06-10] MEDS: POTASSIUM CHLORIDE ER 10 MEQ TAB.ER.PRT PO SCH (09:04)
[2019-06-10] MEDS: LOSARTAN 50 MG TAB PO SCH ×2 (09:05→22:35)
[2019-06-10] MEDS: hydrALAZINE HCL 25 MG TAB PO SCH ×3 (09:05→22:31)
[2019-06-10] MEDS: HYDROCHLOROTHIAZIDE 25 MG TAB PO SCH (09:05)
[2019-06-10] MEDS: cloNIDine HCL 0.1 MG TAB PO SCH ×3 (09:05→22:31)
[2019-06-10] MEDS: GABAPENTIN 300 MG CAP PO SCH ×4 (09:05→22:31)
[2019-06-10 11:48] LABS: Glucose,Whole Blood 192 mg/dL (75-99)
[2019-06-10] MEDS: amLODIPine 10 MG TAB PO SCH (12:20)
--- NOTE | 2019-06-10 13:44 | P.CONS ---
History of Present Illness - Reason for Consult Consult date: 06/09/19 Hematemesis Requesting physician: Kendy Camacho - Chief Complaint Vomiting blood - History of Present Illness 68-year-old male with multiple medical comorbidities including coronary artery disease status post CABG, CVA, diabetes mellitus, hypertension, hyperlipidemia, history of seizure disorder, and hypothyroidism who presented to the hospital with complaints of vomiting blood. Of note history has been taken from the patient and in discussion with his who is sitting bedside. The patient is on Plavix and aspirin therapy. He reports having approximately 3 episodes of vomiting what he describes as blood and clots. He denies any prior episodes of hematemesis. He denies any associated abdominal pain. No further episodes since presentation to the hospital. No reports of NSAID use at home or prior history of peptic ulcer disease. Unclear if prior EGD has been performed, however the patient's does not believe he has required this procedure in the past. Laboratory evaluation on presentation was significant for a hemoglobin of 6.8 with an MCV of 107.8, INR 1.1, total bilirubin 0.3, alkaline phosphatase 99, AST 18 and ALTs 17. Currently the patient is seen lying in bed with no further episodes of vomiting reported. He is denying any abdominal pain at this time. Review of Systems REVIEW OF SYSTEMS: CONSTITUTIONAL: Denies any fevers, chills, weight change or fatigue. CARDIOVASCULAR: Denies any chest pain, palpitations high or low blood pressures RESPIRATORY: Denies any shortness of breath, hemoptysis or cough. GENITOURINARY: No dysuria or hematuria. MUSCULOSKELETAL: No weakness reported. SKIN: Denies any new rashes or lesions, jaundice or pallor. PSYCHIATRIC: Denies any depression or anxiety. NEUROLOGY: Denies headache, denies any new focal deficits. EARS/NOSE/THROAT: No recent hearing change, congestion, nasal discharge or sore throat. EYES: No pain in eyes, discharge or change in vision. GASTROINTESTINAL: As per HPI. Past Medical History Past Medical History: Coronary Artery Disease (CAD), CVA/TIA, Diabetes Mellitus, Hyperlipidemia, Hypertension, Myocardial Infarction ([place]), Neurologic Disorder, Pneumonia, Seizure Disorder, Thyroid Disorder, Vascular Disorder Additional Past Medical History / Comment(s): hx. 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 [employer], HAD SOME SKIN DISEASE WHERE HIS HANDS AND FEET WOULD BLISTER/PEEL HAD BX DONE- never found cause Last Myocardial Infarction Date:: 02/17/2016 History of Any Multi-Drug Resistant Organisms: None Reported Past Surgical History: Coronary Bypass/CABG, Heart Catheterization, Heart Catheterization With Stent, Orthopedic Surgery Additional Past Surgical History / Comment(s): 02/24/16 CABG quad bypass with aortic valve replacement (TAVR), RT HAND INDEX FINGER BONE CHIP REMOVED, RT WRIST SURG., colonoscopy, bilateral cataract removal, FEMORAL ENDARECTOMY WITH ANGIOPLASTY, POPLITEAL\TIBIAL ENDARECTOMY WITH FEMORAL TBIAL BYPASS Past Anesthesia/Blood Transfusion Reactions: No Reported Reaction Date of Last Stent Placement:: 2017 Past Psychological History: No Psychological Hx Reported Additional Psychological History / Comment(s): PT RECENTLY ADMITTED 05/15-05/24. DISCHARGED TO [facility]. Smoking Status: Former smoker Past Alcohol Use History: None Reported Additional Past Alcohol Use History / Comment(s): STARTED SMOKING AT AGE 18 quit may 2019. USED TO DRINK DAILY (18-24 PACK OF BEER PER DAY), has not drank since 2012 Past Drug Use History: None Reported - Past Family History Father Family Medical History: Coronary Artery Disease (CAD) Additional Family Medical History / Comment(s): VASCULAR PROBLEMS/valve replacement. Mother Family Medical History: Coronary Artery Disease (CAD) Additional Family Medical History / Comment(s): VASCULAR PROBLEMS HAD PIG VALVE. Medications and Allergies Home Medications Medication Instructions Recorded Confirmed Type Ferrous Sulfate [Iron (65 MG 325 mg PO BID 03/11/16 06/09/19 History Elemental)] Levothyroxine Sodium [Synthroid] 125 mcg PO DAILY 06/14/18 06/09/19 History Hydroxyurea [Hydrea] 1,000 mg PO SUSA 01/06/19 06/09/19 History Hydroxyurea [Hydrea] 500 mg PO MOTUWETHFR 01/06/19 06/09/19 History Vit C/E/Zn/Coppr/Lutein/Zeaxan 2 cap PO DAILY 01/06/19 06/09/19 History [Preservision Areds 2 Softgel] Aspirin 325 mg PO DAILY tab 01/08/19 06/09/19 Rx Clopidogrel [Plavix] 75 mg PO DAILY tab 01/08/19 06/09/19 Rx Insulin Glargine [Lantus] 15 unit SQ DAILY 03/14/19 06/09/19 History Carvedilol [Coreg] 3.125 mg PO BID 03/16/19 06/09/19 History Atorvastatin [Lipitor] 80 mg PO HS 05/14/19 06/09/19 History Gabapentin [Neurontin] 300 mg PO QID 3 Days #12 cap 05/23/19 06/09/19 Rx Hydrochlorothiazide [Hydrodiuril] 25 mg PO DAILY #30 tab 05/23/19 06/09/19 Rx Losartan [Cozaar] 50 mg PO BID #60 tab 05/23/19 06/09/19 Rx Potassium Chloride [K-Tab ER] 10 meq PO DAILY #30 tablet.er 05/23/19 06/09/19 Rx cloNIDine HCL [Catapres] 0.1 mg PO TID #90 tab 05/23/19 06/09/19 Rx hydrALAZINE HCL [Apresoline] 75 mg PO TID #90 tab 05/23/19 06/09/19 Rx traMADol HCL [Ultram] 50 mg PO Q6HR PRN 3 Days #12 tablet 05/24/19 06/09/19 Rx Magnesium Hydroxide [Milk of 7,200 mg PO DAILY PRN 06/09/19 06/09/19 History Magnesia Concentrate] Menthol-Zinc Oxide Oint 1 applic TOPICAL TID 06/09/19 06/09/19 History [Calmoseptine Oint] amLODIPine [Norvasc] 10 mg PO DAILY@1200 06/09/19 06/09/19 History Allergies Allergy/AdvReac Type Severity Reaction Status Date / Time No Known Allergies Allergy Verified 06/09/19 09:38 Physical Exam Vitals: Vital Signs Temp Pulse Pulse Resp BP BP Pulse Ox 06/10/19 12:00 98.4 F 65 16 149/63 94 L 06/10/19 08:00 98.3 F 65 14 144/65 98 06/10/19 03:44 98.2 F 72 14 135/63 96 06/10/19 00:23 98.5 F 67 16 163/70 97 06/09/19 22:01 98.5 F 77 143/58 99 06/09/19 21:31 98.2 F 75 16 173/74 100 06/09/19 21:21 98.9 F 77 16 173/68 99 06/09/19 19:50 98.3 F 75 15 164/54 99 06/09/19 16:00 98.4 F 73 16 141/79 97 Intake and Output 06/09/19 06/10/19 06/10/19 22:59 06:59 14:59 Intake Total 0 310 120 Output Total 700 1800 600 Balance -700 -1490 -480 Intake: Oral 120 Blood Product 0 310 Rc As-1 Unit 0 310 [id number] Output: Urine 700 1800 600 Other: Voiding Method Indwelling Catheter Indwelling Catheter Indwelling Catheter # Bowel Movements 1 Weight 69 kg On physical examination, patient appears comfortable in no apparent distress. HEAD: Normocephalic, atraumatic. EYES: No scleral icterus. No conjunctival injection. MOUTH: No lesions, tongue midline. NECK: Trachea midline, no gross abnormalities. CHEST: Decreased air entry in all lung alvarez. HEART: S1-S2 appreciated, no murmurs appreciated. ABDOMEN: Soft, obese. Bowel sounds are positive. No organomegaly. No guarding or rigidity. EXTREMITIES: No pedal edema. SKIN: No rashes, no jaundice. NEUROLOGIC: Alert and oriented x2. No focal deficits. Results CBC & Chem 7: 06/10/19 06:56 06/10/19 06:56 Labs: Abnormal Lab Results - Last 24 Hours (Table) 06/09/19 06/09/19 06/09/19 Range/Units 01:27 14:10 16:46 WBC 11.9 H (3.8-10.6) k/uL RBC 2.00 L (4.30-5.90) m/uL Hgb 6.9 L* (13.0-17.5) gm/dL Hct 21.0 L (39.0-53.0) % MCV 104.8 H (80.0-100.0) fL RDW 20.6 H (11.5-15.5) % Plt Count 647 H (150-450) k/uL Neutrophils # 8.8 H (1.3-7.7) k/uL Macrocytosis Marked A Sodium (137-145) mmol/L Carbon Dioxide (22-30) mmol/L BUN (9-20) mg/dL Glucose (74-99) mg/dL POC Glucose (mg/dL) 154 H (75-99) mg/dL Crossmatch See Detail 06/09/19 06/10/19 06/10/19 Range/Units 20:52 01:39 06:11 WBC 13.7 H (3.8-10.6) k/uL RBC 2.34 L (4.30-5.90) m/uL Hgb 7.8 L (13.0-17.5) gm/dL Hct 23.9 L (39.0-53.0) % MCV 101.9 H (80.0-100.0) fL RDW 21.9 H (11.5-15.5) % Plt Count 555 H (150-450) k/uL Neutrophils # 11.0 H (1.3-7.7) k/uL Macrocytosis Marked A Sodium (137-145) mmol/L Carbon Dioxide (22-30) mmol/L BUN (9-20) mg/dL Glucose (74-99) mg/dL POC Glucose (mg/dL) 220 H 134 H (75-99) mg/dL Crossmatch 06/10/19 06/10/19 06/10/19 Range/Units 06:56 06:56 11:46 WBC 12.3 H (3.8-10.6) k/uL RBC 2.46 L (4.30-5.90) m/uL Hgb 8.1 L (13.0-17.5) gm/dL Hct 24.5 L (39.0-53.0) % MCV (80.0-100.0) fL RDW 21.0 H (11.5-15.5) % Plt Count 565 H (150-450) k/uL Neutrophils # 9.4 H (1.3-7.7) k/uL Macrocytosis Sodium 132 L (137-145) mmol/L Carbon Dioxide 20 L (22-30) mmol/L BUN 54 H (9-20) mg/dL Glucose 131 H (74-99) mg/dL POC Glucose (mg/dL) 192 H (75-99) mg/dL Crossmatch Assessment and Plan (1) GI bleed Narrative/Plan: 68-year-old male with multiple medical comorbidities on Plavix therapy who presented to the hospital with complaints of hematemesis. The patient reported vomiting productive of both blood and clots with no prior episodes of GI bleeding and no further episodes since presentation to the hospital. He denies any use of NSAIDs at home or medical history significant for peptic ulcer disease. No associated abdominal pain. Differential includes peptic ulcer disease, esophagitis/gastritis, AVM, Claudette-Boyer tear or other etiology. Current Visit: Yes Status: Acute Code(s): K92.2 - GASTROINTESTINAL HEMORRHAGE, UNSPECIFIED SNOMED Code(s): 11264276 (2) Anemia associated with acute blood loss Current Visit: Yes Status: Acute Code(s): D62 - ACUTE POSTHEMORRHAGIC ANEMIA SNOMED Code(s): 101670532 Plan: Supportive care Okay for liquid diet Continue Protonix 40 mg IV twice a day Plan for EGD on Tuesday Continue to hold Plavix therapy Continue to monitor hemoglobin and hematocrit and transfuse as needed Continue to monitor clinically Thank you for allowing us dysphagia in the care of the patient we will continue to follow
[2019-06-10 16:45] LABS: Glucose,Whole Blood 136 mg/dL (75-99)
--- NOTE | 2019-06-10 19:15 | PN ---
PROGRESS NOTE DATE OF SERVICE: 06/10/2019. This 68-year-old gentleman was admitted with GI bleed, also had acute blood loss anemia. After 1 unit transfusion hemoglobin is improved to 8.1 today. No chest pain. No palpitations. No fever. Dr. Hollis is following the patient closely and was recommending endoscopies on Tuesday. PHYSICAL EXAM: Alert and oriented x3. The pulse is 65. Blood pressure 149/63, respirations 16, temperature 98.4, pulse ox 94% on room air. HEENT: Conjunctivae pale. Oral mucosa moist. NECK is no jugular venous distention. No carotid bruit. No lymph node enlargement. CARDIOVASCULAR SYSTEM: S1, S2, muffled. RESPIRATIONS: Breath sounds diminished in the bases. A few scattered rhonchi. No crackles. ABDOMEN: Soft mild diffuse distention. Nontender. No mass palpable. Nontender. LEGS: No edema. No swelling. CENTRAL NERVOUS SYSTEM: Diffusely weak. LABS: The labs are WBC 12.3, hemoglobin is 8.1, sodium 130, potassium 4.3. ASSESSMENT: 1. Coffee-ground emesis and also hematemesis and possible upper gastrointestinal bleeding with acute blood loss anemia, status post transfusions. Rule out peptic ulcer disease. 2. History of recent gangrene of the right 5th toe secondary to peripheral vascular disease, status post amputation as well as right endarterectomies and right femorotibial bypass surgery. 3. History of coronary artery disease. 4. History of cerebrovascular accident, transient ischemic attack. 5. Diabetes type 2. 6. Hypertension. 7. Hyperlipidemia. 8. History of myocardial infarction. 9. History of seizure disorder. 10.History hypothyroidism. 11.History of prostate cancer. 12.History of . 13.History of iron deficiency anemia. 14.History of peripheral vascular disease. 15.History of Agent [place] exposure. 16.History of coronary artery disease, coronary artery bypass grafting/stent. 17.History of TAVR. 18.History of nicotine dependence. RECOMMENDATIONS AND DISCUSSION: In this 68-year-old gentleman who presented with multiple complex medical issues, we will monitor the patient closely, continue the current medications, management and symptomatic treatment. Hemoglobin appears to be stable at this time at 8.1, however, I will follow the patient closely with Dr. Hollis regarding endoscopies. Otherwise rule out antiplatelet agents for now. Continue to monitor. Continue the proton pump inhibitors. Further recommendations to follow. MMODL / IJN: [id number] /
--- NOTE | 2019-06-10 19:40 | P.PN ---
Subjective Progress Note Date: 06/10/19 Principal diagnosis: Hematemesis Patient lying in bed reporting no further nausea or vomiting since presentation. Has tolerated liquids. No bowel movements reported. Objective - Vital Signs Vital signs: Vital Signs Temp 98.4 F 06/10/19 16:00 Pulse 67 06/10/19 16:00 Resp 14 06/10/19 16:00 BP 134/60 06/10/19 16:00 Pulse Ox 99 06/10/19 16:00 Intake & Output 06/10/19 06/10/19 06/11/19 06:59 18:59 06:59 Intake Total 310 360 Output Total 2500 1600 Balance -2190 -1240 Weight 69 kg Intake: Oral 360 Blood Product 310 Rc As-1 Unit 310 [id number] Output: Urine 2500 1600 Other: Voiding Method Indwelling Catheter Indwelling Catheter # Bowel Movements 1 - Exam On physical examination, patient appears comfortable in no apparent distress. HEAD: Normocephalic, atraumatic. EYES: No scleral icterus. No conjunctival injection. MOUTH: No lesions, tongue midline. NECK: Trachea midline, no gross abnormalities. CHEST: Clear to auscultation with no wheezing or rhonchi appreciated. HEART: S1-S2 appreciated. ABDOMEN: Soft, obese. Bowel sounds are positive. No organomegaly. No guarding or rigidity. EXTREMITIES: No pedal edema. SKIN: No rashes, no jaundice. NEUROLOGIC: Alert and oriented x1. No focal deficits. - Labs CBC & Chem 7: 06/10/19 06:56 06/10/19 06:56 Labs: Abnormal Lab Results - Last 24 Hours (Table) 06/09/19 06/09/19 06/10/19 Range/Units 01:27 20:52 01:39 WBC 13.7 H (3.8-10.6) k/uL RBC 2.34 L (4.30-5.90) m/uL Hgb 7.8 L (13.0-17.5) gm/dL Hct 23.9 L (39.0-53.0) % MCV 101.9 H (80.0-100.0) fL RDW 21.9 H (11.5-15.5) % Plt Count 555 H (150-450) k/uL Neutrophils # 11.0 H (1.3-7.7) k/uL Macrocytosis Marked A Sodium (137-145) mmol/L Carbon Dioxide (22-30) mmol/L BUN (9-20) mg/dL Glucose (74-99) mg/dL POC Glucose (mg/dL) 220 H (75-99) mg/dL Crossmatch See Detail 06/10/19 06/10/19 06/10/19 Range/Units 06:11 06:56 06:56 WBC 12.3 H (3.8-10.6) k/uL RBC 2.46 L (4.30-5.90) m/uL Hgb 8.1 L (13.0-17.5) gm/dL Hct 24.5 L (39.0-53.0) % MCV (80.0-100.0) fL RDW 21.0 H (11.5-15.5) % Plt Count 565 H (150-450) k/uL Neutrophils # 9.4 H (1.3-7.7) k/uL Macrocytosis Sodium 132 L (137-145) mmol/L Carbon Dioxide 20 L (22-30) mmol/L BUN 54 H (9-20) mg/dL Glucose 131 H (74-99) mg/dL POC Glucose (mg/dL) 134 H (75-99) mg/dL Crossmatch 06/10/19 06/10/19 Range/Units 11:46 16:29 WBC (3.8-10.6) k/uL RBC (4.30-5.90) m/uL Hgb (13.0-17.5) gm/dL Hct (39.0-53.0) % MCV (80.0-100.0) fL RDW (11.5-15.5) % Plt Count (150-450) k/uL Neutrophils # (1.3-7.7) k/uL Macrocytosis Sodium (137-145) mmol/L Carbon Dioxide (22-30) mmol/L BUN (9-20) mg/dL Glucose (74-99) mg/dL POC Glucose (mg/dL) 192 H 136 H (75-99) mg/dL Crossmatch Assessment and Plan (1) GI bleed Narrative/Plan: 68-year-old male with multiple medical comorbidities on Plavix therapy who presented to the hospital with complaints of hematemesis. The patient reported vomiting productive of both blood and clots with no prior episodes of GI bleeding and no further episodes since presentation to the hospital. He denies any use of NSAIDs at home or medical history significant for peptic ulcer disease. No associated abdominal pain. Differential includes peptic ulcer disease, esophagitis/gastritis, AVM, Claud[place] tear or other etiology. Current Visit: Yes Status: Acute Code(s): K92.2 - GASTROINTESTINAL HEMORRHAGE, UNSPECIFIED SNOMED Code(s): 97739853 (2) Anemia associated with acute blood loss Current Visit: Yes Status: Acute Code(s): D62 - ACUTE POSTHEMORRHAGIC ANEMIA SNOMED Code(s): 066215565 Plan: Supportive care Okay for liquid diet Continue Protonix 40 mg IV twice a day Plan for EGD on Tuesday Continue to hold Plavix therapy Continue to monitor hemoglobin and hematocrit and transfuse as needed Continue to monitor clinically Thank you for allowing us to participate in the care of the patient we will continue to follow
[2019-06-10 20:50] LABS: Glucose,Whole Blood 172 mg/dL (75-99)
[2019-06-10] MEDS: ATORVASTATIN 80 MG TAB PO SCH (22:35)
[2019-06-11 06:08] LABS: Glucose,Whole Blood 150 mg/dL (75-99)
[2019-06-11] MEDS ORDERED: IV FLUID CONTINUATION 1,000 ML IV ONE (06:52)
[2019-06-11] MEDS ORDERED: PROPOFOL 10 MG/ML 20 ML VIAL IV ONE (06:52)
[2019-06-11] MEDS ORDERED: INSULIN DETEMIR (LEVEMIR) 100 UNIT/ML SYR SQ SCH (07:00)
--- NOTE | 2019-06-11 07:39 | P.PCN ---
Date of Procedure: 06/11/19 Description of Procedure: BRIEF HISTORY: 68-year-old male with multiple medical comorbidities including coronary artery disease status post CABG, CVA, diabetes mellitus, hypertension, hyperlipidemia, history of seizure disorder, and hypothyroidism who presented to the hospital with complaints of vomiting blood. Of note history has been taken from the patient and in discussion with his who is sitting bedside. The patient is on Plavix and aspirin therapy. He reports having approximately 3 episodes of vomiting what he describes as blood and clots. He denies any prior episodes of hematemesis. He denies any associated abdominal pain. No further episodes since presentation to the hospital. No reports of NSAID use at home or prior history of peptic ulcer disease. Unclear if prior EGD has been performed, however the patient's does not believe he has required this procedure in the past. Laboratory evaluation on presentation was significant for a hemoglobin of 6.8 with an MCV of 107.8, INR 1.1, total bilirubin 0.3, alkaline phosphatase 99, AST 18 and ALTs 17. PROCEDURE PERFORMED: Esophagogastroduodenoscopy with biopsy. PREOPERATIVE DIAGNOSIS: Hematemesis, anemia of acute blood loss. ESTIMATED BLOOD LOSS: Minimal. IV sedation per anesthesia. PROCEDURE: After informed consent was obtained, the patient was brought into the endoscopy unit. IV sedation was administered by Anesthesia under continuous monitoring. Initially the Olympus GIF-190 video endoscope was inserted into the mouth. Esophagus intubated without any difficulty. It was gradually advanced into the stomach and duodenum and carefully examined. The bulb and the second part of the duodenum appeared normal and biopsied. The scope at this time was withdrawn to the stomach, adequately insufflated with air, and upon careful examination, mucosa of the antrum, body, cardia and the fundus were significant for diffuse erythema and nodularity suggestive of severe gastritis with biopsies taken of the antrum/body and the fundus/cardia. 2 nonbleeding superficial antral ulcers were also noted and biopsied. The scope was then withdrawn into the esophagus. The GE junction was located at 40 cm from the incisors. The esophagus appeared normal. There were no erosions or ulcerations seen and the patient tolerated the procedure well. IMPRESSION: 1. 2 nonbleeding antral ulcers without higher stigmata for rebleeding, biopsied. 2. Severe pangastritis, antrum/body and cardia/fundus biopsied. 3. Duodenal biopsies. RECOMMENDATIONS: The findings of this examination were discussed with the patient. Continue Protonix 40 mg twice a day. Avoid NSAID use. Okay for full liquid diet, advance as tolerated. Await pathology from biopsies.
[2019-06-11] MEDS: INSULIN ASPART (NovoLOG) 100 UNIT/ML VIAL SQ SCH ×2 (07:54→12:01)
[2019-06-11] MEDS: HYDROCHLOROTHIAZIDE 25 MG TAB PO SCH (08:26)
[2019-06-11] MEDS: CARVEDILOL 3.125 MG TAB PO SCH (08:26)
[2019-06-11 08:27] LABS: Glucose,Whole Blood 134 mg/dL (75-99)
[2019-06-11] MEDS: PANTOPRAZOLE 40 MG/10 ML VIAL IVP SCH (08:27)
[2019-06-11] MEDS: GABAPENTIN 300 MG CAP PO SCH ×2 (08:27→12:01)
[2019-06-11] MEDS: hydrALAZINE HCL 25 MG TAB PO SCH (08:27)
[2019-06-11] MEDS: LOSARTAN 50 MG TAB PO SCH (08:27)
[2019-06-11] MEDS: POTASSIUM CHLORIDE ER 10 MEQ TAB.ER.PRT PO SCH (08:27)
[2019-06-11] MEDS: cloNIDine HCL 0.1 MG TAB PO SCH (08:27)
[2019-06-11] MEDS: LEVOTHYROXINE 125 MCG TAB PO SCH (08:27)
[2019-06-11] MEDS: HEPARIN SODIUM,PORCINE 5,000 UNIT/ML 1 ML VIAL SQ SCH (09:00)
[2019-06-11 09:19] LABS: Anisocytosis Moderate; Basophils # (A) 0.1 k/uL (0-0.2); Basophils % (A) 1 %; Eosinophils # (A) 0.4 k/uL (0-0.7); Eosinophils % (A) 4 %; HCT 23.6 % (39.0-53.0); HGB 7.4 gm/dL (13.0-17.5); Hypochromasia Slight; Lymphocytes # (A) 1.5 k/uL (1.0-4.8); Lymphocytes % (A) 12 %; MCH 33.2 pg (25.0-35.0); MCHC 31.5 g/dL (31.0-37.0); Macrocytosis Marked; Mean Platelet Volume 7.4; Monocytes # (A) 0.8 k/uL (0-1.0); Monocytes % (A) 6 %; Neutrophils # (A) 9.7 k/uL (1.3-7.7); Neutrophils % (A) 76 %; Platelet Count 605 k/uL (150-450); RBC 2.24 m/uL (4.30-5.90); RDW 22.4 % (11.5-15.5); WBC 12.7 k/uL (3.8-10.6)
[2019-06-11 09:24] LABS: Calcium 8.8 mg/dL (8.4-10.2); MCV 105.4 fL (80.0-100.0); Potassium 4.4 mmol/L (3.5-5.1)
[2019-06-11 10:52] VITALS: RESP 16; TEMP 98.1
--- NOTE | 2019-06-11 10:57 | P.GSCN ---
History of Present Illness Consult date: 06/11/19 Reason for Consult: Recent Surgery, GI bleed History of present illness: Gokul is a 68 y/o male well known to our service for a previous right lwoer extremity femoral-tibial bypass with GSV and 5th toe amputation. He was doing well convalescing at [facility] without much issue when he began thrwoing up blood. He was transported here for further workup and evaluation. He has been maintained on his plavix and aspirin since the surgery. They have been stopped at this time due to the GI bleed. He has a past medical history of coronary artery disease status post CABG, CVA, diabetes mellitus, hypertension, hyperlipidemia, exposure to agent orange, and hypothyroidism. At the time of this evaluation, he has already undergone an EGD revealing 2 ulcerations without bleeding stigmata. He denies an CP, SOB, nausea or vominting at this time. His right leg feels fine, he is having no issues Review of Systems 14 point review performed, pertinent positives and negatives per the HPI Past Medical History Past Medical History: Coronary Artery Disease (CAD), CVA/TIA, Diabetes Mellitus, Hyperlipidemia, Hypertension, Myocardial Infarction ([place]), Neurologic Disorder, Pneumonia, Seizure Disorder, Thyroid Disorder, Vascular Disorder Additional Past Medical History / Comment(s): hx. 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 [employer], HAD SOME SKIN DISEASE WHERE HIS HANDS AND FEET WOULD BLISTER/PEEL HAD BX DONE- never found cause Last Myocardial Infarction Date:: 02/17/2016 History of Any Multi-Drug Resistant Organisms: None Reported Past Surgical History: Coronary Bypass/CABG, Heart Catheterization, Heart Catheterization With Stent, Orthopedic Surgery Additional Past Surgical History / Comment(s): 02/24/16 CABG quad bypass with aortic valve replacement (TAVR), RT HAND INDEX FINGER BONE CHIP REMOVED, RT WRIST SURG., colonoscopy, bilateral cataract removal, FEMORAL ENDARECTOMY WITH ANGIOPLASTY, POPLITEAL\TIBIAL ENDARECTOMY WITH FEMORAL TBIAL BYPASS Past Anesthesia/Blood Transfusion Reactions: No Reported Reaction Date of Last Stent Placement:: 2017 Past Psychological History: No Psychological Hx Reported Additional Psychological History / Comment(s): PT RECENTLY ADMITTED 05/15-05/24. DISCHARGED TO [facility]. Smoking Status: Former smoker Past Alcohol Use History: None Reported Additional Past Alcohol Use History / Comment(s): STARTED SMOKING AT AGE 18 quit may 2019. USED TO DRINK DAILY (18-24 PACK OF BEER PER DAY), has not drank since 2012 Past Drug Use History: None Reported - Past Family History Father Family Medical History: Coronary Artery Disease (CAD) Additional Family Medical History / Comment(s): VASCULAR PROBLEMS/valve replacement. Mother Family Medical History: Coronary Artery Disease (CAD) Additional Family Medical History / Comment(s): VASCULAR PROBLEMS HAD PIG VALVE. Medications and Allergies Home Medications Medication Instructions Recorded Confirmed Type Ferrous Sulfate [Iron (65 MG 325 mg PO BID 03/11/16 06/09/19 History Elemental)] Levothyroxine Sodium [Synthroid] 125 mcg PO DAILY 06/14/18 06/09/19 History Hydroxyurea [Hydrea] 1,000 mg PO SUSA 01/06/19 06/09/19 History Hydroxyurea [Hydrea] 500 mg PO MOTUWETHFR 01/06/19 06/09/19 History Vit C/E/Zn/Coppr/Lutein/Zeaxan 2 cap PO DAILY 01/06/19 06/09/19 History [Preservision Areds 2 Softgel] Aspirin 325 mg PO DAILY tab 01/08/19 06/09/19 Rx Clopidogrel [Plavix] 75 mg PO DAILY tab 01/08/19 06/09/19 Rx Insulin Glargine [Lantus] 15 unit SQ DAILY 03/14/19 06/09/19 History Carvedilol [Coreg] 3.125 mg PO BID 03/16/19 06/09/19 History Atorvastatin [Lipitor] 80 mg PO HS 05/14/19 06/09/19 History Gabapentin [Neurontin] 300 mg PO QID 3 Days #12 cap 05/23/19 06/09/19 Rx Losartan [Cozaar] 50 mg PO BID #60 tab 05/23/19 06/09/19 Rx cloNIDine HCL [Catapres] 0.1 mg PO TID #90 tab 05/23/19 06/09/19 Rx hydrALAZINE HCL [Apresoline] 75 mg PO TID #90 tab 05/23/19 06/09/19 Rx traMADol HCL [Ultram] 50 mg PO Q6HR PRN 3 Days #12 tablet 05/24/19 06/09/19 Rx Magnesium Hydroxide [Milk of 7,200 mg PO DAILY PRN 06/09/19 06/09/19 History Magnesia Concentrate] Menthol-Zinc Oxide Oint 1 applic TOPICAL TID 06/09/19 06/09/19 History [Calmoseptine Oint] amLODIPine [Norvasc] 10 mg PO DAILY@1200 06/09/19 06/09/19 History Allergies Allergy/AdvReac Type Severity Reaction Status Date / Time No Known Allergies Allergy Verified 06/09/19 09:38 Surgical - Exam Vital Signs Temp Pulse Resp BP Pulse Ox 98.7 F 70 18 153/55 100 06/09/19 01:12 06/09/19 01:12 06/09/19 01:12 06/09/19 01:12 06/09/19 01:12 - General well developed, well nourished, no pain - Eyes PERRL, normal ocular movement - ENT normal nares, normal mucosa - Neck no masses - Respiratory normal expansion, normal respiratory effort - Cardiovascular Rhythm: regular - Abdomen Abdomen: soft, non tender - Neurologic normal coordination, normal sensation (right lower extremity incisions c/d/i. minimal redness at groin incision. well healing leg incision. sutures removed from amp site, minimal dehiscence. palpable pulse in bypass graft) Results - Labs 06/11/19 08:28 06/11/19 08:28 Abnormal Lab Results - Last 24 Hours (Table) 06/10/19 06/10/19 06/10/19 Range/Units 11:46 16:29 20:48 WBC (3.8-10.6) k/uL RBC (4.30-5.90) m/uL Hgb (13.0-17.5) gm/dL Hct (39.0-53.0) % MCV (80.0-100.0) fL RDW (11.5-15.5) % Plt Count (150-450) k/uL Macrocytosis Sodium (137-145) mmol/L Carbon Dioxide (22-30) mmol/L BUN (9-20) mg/dL Creatinine (0.66-1.25) mg/dL Glucose (74-99) mg/dL POC Glucose (mg/dL) 192 H 136 H 172 H (75-99) mg/dL 06/11/19 06/11/19 06/11/19 Range/Units 06:06 08:25 08:28 WBC 12.7 H (3.8-10.6) k/uL RBC 2.24 L (4.30-5.90) m/uL Hgb 7.4 L (13.0-17.5) gm/dL Hct 23.6 L (39.0-53.0) % MCV 105.4 H D (80.0-100.0) fL RDW 22.4 H (11.5-15.5) % Plt Count 605 H (150-450) k/uL Macrocytosis Marked A Sodium (137-145) mmol/L Carbon Dioxide (22-30) mmol/L BUN (9-20) mg/dL Creatinine (0.66-1.25) mg/dL Glucose (74-99) mg/dL POC Glucose (mg/dL) 150 H 134 H (75-99) mg/dL 06/11/19 Range/Units 08:28 WBC (3.8-10.6) k/uL RBC (4.30-5.90) m/uL Hgb (13.0-17.5) gm/dL Hct (39.0-53.0) % MCV (80.0-100.0) fL RDW (11.5-15.5) % Plt Count (150-450) k/uL Macrocytosis Sodium 133 L (137-145) mmol/L Carbon Dioxide 20 L (22-30) mmol/L BUN 37 H (9-20) mg/dL Creatinine 1.31 H (0.66-1.25) mg/dL Glucose 152 H (74-99) mg/dL POC Glucose (mg/dL) (75-99) mg/dL Diabetes panel 06/11/19 Range/Units 08:28 Sodium 133 L (137-145) mmol/L Potassium 4.4 (3.5-5.1) mmol/L Chloride 103 (98-107) mmol/L Carbon Dioxide 20 L (22-30) mmol/L BUN 37 H (9-20) mg/dL Creatinine 1.31 H (0.66-1.25) mg/dL Glucose 152 H (74-99) mg/dL Calcium 8.8 (8.4-10.2) mg/dL Calcium panel 06/11/19 Range/Units 08:28 Calcium 8.8 (8.4-10.2) mg/dL Pituitary panel 06/11/19 Range/Units 08:28 Sodium 133 L (137-145) mmol/L Potassium 4.4 (3.5-5.1) mmol/L Chloride 103 (98-107) mmol/L Carbon Dioxide 20 L (22-30) mmol/L BUN 37 H (9-20) mg/dL Creatinine 1.31 H (0.66-1.25) mg/dL Glucose 152 H (74-99) mg/dL Calcium 8.8 (8.4-10.2) mg/dL Adrenal panel 06/11/19 Range/Units 08:28 Sodium 133 L (137-145) mmol/L Potassium 4.4 (3.5-5.1) mmol/L Chloride 103 (98-107) mmol/L Carbon Dioxide 20 L (22-30) mmol/L BUN 37 H (9-20) mg/dL Creatinine 1.31 H (0.66-1.25) mg/dL Glucose 152 H (74-99) mg/dL Calcium 8.8 (8.4-10.2) mg/dL Assessment and Plan Assessment: 1. GI Bleed 2. Anemia secondary to 1 3. Recent Fem Tib bypass with 5th toe amputation for gangrene 4. CAD 5. HTN 6. Hypothyroidism Plan: Continue local wound care for 5ht toe. Vaseline gauze and dry dressing at this time. Reinstitute Asa/plavix when okay with GI. Would prefer both, but with gi bleed, okay if only one tolerated. No futher plan for vascular intervention at this time.
[2019-06-11 11:48] LABS: Glucose,Whole Blood 161 mg/dL (75-99)
[2019-06-11] MEDS: amLODIPine 10 MG TAB PO SCH (12:01)
--- NOTE | 2019-06-11 12:47 | P.DS ---
Providers Date of admission: 06/09/19 08:38 Expected date of discharge: 06/11/19 Attending physician: Kendy Camacho Consults: 06/09/19 07:54 Consult Physician Routine Consulting Provider: Esteban Hollis Consult Reason/Comments: GIB Do you want consulting provider notified?: Yes, Notify in am 06/10/19 08:46 Consult Physician Routine Consulting Provider: Lin Araujo Consult Reason/Comments: Known to patient, recent surgery, readmission Do you want consulting provider notified?: Yes Primary care physician: [facility] Course: Final diagnosis Coffee-ground emesis and also hematemesis and possible upper gastrointestinal bleeding with acute blood loss anemia, status post transfusions. Rule out peptic ulcer disease EGD done showing to non-bleeding antral ulcers without higher stigmata for rebleeding and severe pangastritis. Biopsies are pending History of recent gangrene of the right fifth toe secondary to peripheral vascular disease, status post amputation as well as right endarterectomies and right femoral tibial bypass surgery History of coronary artery disease History of cerebrovascular accident, transient ischemic attack Diabetes mellitus type 2 Hypertension Hyperlipidemia History of myocardial infarction History of seizure disorder History of hypothyroidism History of prostate cancer History of iron deficiency anemia History peripheral vascular disease History of agent [place] exposure History of coronary artery disease, coronary artery bypass grafting/stent History of TAVR History of nicotine dependence Discharge disposition The patient is being discharged in a stable condition with guarded prognosis back to [facility] rehab facility. History of present illness This is a 68-year-old male that was admitted with GI bleed with acute blood loss anemia and coffee-ground emesis. Patient did receive 2 units of packed red blood cells this admission. Patient underwent an EGD during this admission and biopsies were obtained. Patient will follow-up with gastroenterology for results. Patient was also seen by vascular surgery during this admission for previous admission of an amputation of the right fifth toe. Sutures were romel constance and instructed to continue wound care with previous instructions. Patient is being resumed on anticoagulation per GI. Patient will also continue on Protonix by mouth 40 mg twice daily for the next 15 days. Patient is currently stable and no active bleeding is noted. Patient is being discharged in a stable condition with guarded prognosis back to [facility]. Patient denies any nausea, vomiting, or diarrhea at this time. Patient is tolerating diet. Patient denies any chest pain, shortness of breath, or palpitations at this time. On exam vital signs are stable. Blood pressure is 172/71, temp is 98.1F, pulse is 65, respirations are 16, pulse ox is 95% on room air. Cardio S1 and S2 are normal. Respiratory shows diminished breath sounds with no crackles or wheezing noted. Abdomen is soft and nontender. Nervous system shows no focal deficits with mild diffuse weakness. Please refer to the medication reconciliation sheet for list of medications. Patient Condition at Discharge: Fair Plan - Discharge Summary Discharge Rx Participant: No New Discharge Prescriptions: New INSULIN ASPART (NovoLOG) [NovoLOG (formulary)] 0 unit SQ ACHS vial Pantoprazole Sodium [Protonix] 40 mg PO DAILY #14 tablet.dr Continue Ferrous Sulfate [Iron (65 MG Elemental)] 325 mg PO BID Levothyroxine Sodium [Synthroid] 125 mcg PO DAILY Vit C/E/Zn/Coppr/Lutein/Zeaxan [Preservision Areds 2 Softgel] 2 cap PO DAILY Hydroxyurea [Hydrea] 500 mg PO MOTUWETHFR Hydroxyurea [Hydrea] 1,000 mg PO SUSA Clopidogrel [Plavix] 75 mg PO DAILY tab Insulin Glargine [Lantus] 15 unit SQ DAILY Carvedilol [Coreg] 3.125 mg PO BID Atorvastatin [Lipitor] 80 mg PO HS hydrALAZINE HCL [Apresoline] 75 mg PO TID #90 tab cloNIDine HCL [Catapres] 0.1 mg PO TID #90 tab Losartan [Cozaar] 50 mg PO BID #60 tab Menthol-Zinc Oxide Oint [Calmoseptine Oint] 1 applic TOPICAL TID amLODIPine [Norvasc] 10 mg PO DAILY@1200 Magnesium Hydroxide [Milk of Magnesia Concentrate] 7,200 mg PO DAILY PRN PRN Reason: Constipation Gabapentin [Neurontin] 300 mg PO QID 3 Days #12 cap traMADol HCL [Ultram] 50 mg PO Q6HR PRN 3 Days #12 tablet PRN Reason: Pain Changed Aspirin 81 mg PO DAILY #1 tab Discontinued Hydrochlorothiazide [Hydrodiuril] 25 mg PO DAILY #30 tab Potassium Chloride [K-Tab ER] 10 meq PO DAILY #30 tablet.er Discharge Medication List Ferrous Sulfate [Iron (65 MG Elemental)] 325 mg PO BID 03/11/16 [History] Levothyroxine Sodium [Synthroid] 125 mcg PO DAILY 06/14/18 [History] Hydroxyurea [Hydrea] 1,000 mg PO SUSA 01/06/19 [History] Hydroxyurea [Hydrea] 500 mg PO MOTUWETHFR 01/06/19 [History] Vit C/E/Zn/Coppr/Lutein/Zeaxan [Preservision Areds 2 Softgel] 2 cap PO DAILY 01/06/19 [History] Clopidogrel [Plavix] 75 mg PO DAILY tab 01/08/19 [Rx] Insulin Glargine [Lantus] 15 unit SQ DAILY 03/14/19 [History] Carvedilol [Coreg] 3.125 mg PO BID 03/16/19 [History] Atorvastatin [Lipitor] 80 mg PO HS 05/14/19 [History] Losartan [Cozaar] 50 mg PO BID #60 tab 05/23/19 [Rx] cloNIDine HCL [Catapres] 0.1 mg PO TID #90 tab 05/23/19 [Rx] hydrALAZINE HCL [Apresoline] 75 mg PO TID #90 tab 05/23/19 [Rx] Magnesium Hydroxide [Milk of Magnesia Concentrate] 7,200 mg PO DAILY PRN 06/09/19 [History] Menthol-Zinc Oxide Oint [Calmoseptine Oint] 1 applic TOPICAL TID 06/09/19 [History] amLODIPine [Norvasc] 10 mg PO DAILY@1200 06/09/19 [History] Aspirin 81 mg PO DAILY #1 tab 06/11/19 [Rx] Gabapentin [Neurontin] 300 mg PO QID 3 Days #12 cap 06/11/19 [Rx] INSULIN ASPART (NovoLOG) [NovoLOG (formulary)] 0 unit SQ ACHS vial 06/11/19 [Rx] Pantoprazole Sodium [Protonix] 40 mg PO DAILY #14 tablet. 06/11/19 [Rx] traMADol HCL [Ultram] 50 mg PO Q6HR PRN 3 Days #12 tablet 06/11/19 [Rx] Follow up Appointment(s)/Referral(s): [facility],Clinic [Primary Care Provider] - 1-2 days Activity/Diet/Wound Care/Special Instructions: Patient returning to [facility] Activity limited until follow-up, advance as tolerated Resume current diet resume anticoagulation. ASA changed to 81mg daily, plavix remains 75mg per cardiology and GI. Continue wound care with vaseline gauze and dry dressings. Follow up with primary care provider
[2019-06-11] MEDS ORDERED: COLLAGENASE 250 UNIT/GM OINTMENT 30 GM TUBE TOPICAL SCH (13:30)
[2019-06-11 13:35] VITALS: BP 169/63; PULSE 64
--- NOTE | 2019-06-11 13:35 | P.CON ---
Consult Note - . Consult date: 06/11/19 Assessment/Plan:: This is a 68 year old pleasant male who is known to the wound care center. He is being followed by Dr. Aguirre the wound care center and was prescribed Santyl to the wound. 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 Review Of Systems: Constitutional: No fever, no chills, no night sweats. No weight change. No weakness, fatigue or lethargy. No daytime sleepiness. Integumentary: Reports ulceration to right foot. No rash or pruritus. No unusual bruising. No change in hair or nails. General Appearance: Alert, cooperative, no distress, appears stated age. Abdomen: Soft, non-tender, no rebound or rigidity, no hepatosplenomegaly. Extremities: Extremities normal, atraumatic, no cyanosis or edema. Pulses: 1+ and symmetric. Skin: Nonhealing ulceration to fifth digit of right foot with fatty layer exposure, exudate and fibrin noted. All other Skin color, texture, tugor normal, no rashes or lesions. Neurologic: Alert oriented x3 cranial nerves II through XII intact, no motor deficit, Assessment/plan: 1. Type 2 diabetes mellitus with foot ulcer with fatty layer exposure. Continue with Santyl to the site and continue to follow-up with wound care as directed. 2. Peripheral vascular disease. Same as above. 3. Atherosclerosis of [place] arteries of right leg with ulceration to other parts of the foot. Same as above DNP note has been reviewed and discussed with Dr. Aguirre and the impression and plan of care has been directed as dictated.
== END 2019-06-11 14:25 | DRG 378 ==
LOC: EC 01:11 → 3SCARD 02:53 → OBSVTOIN 08:38
PROVIDERS: ADMIT Hospitalist; ATTEND Hospitalist
PROC: 30233N1 Transfusion of Nonautologous Red Blood Cells into Peripheral Vein, Percutaneous Approach (ICD-10-PCS; 2019-06-09)
PROC: 0DB78ZX Excision of Stomach, Pylorus, Via Natural or Artificial Opening Endoscopic, Diagnostic (ICD-10-PCS; 2019-06-11)
PROC: 0DB68ZX Excision of Stomach, Via Natural or Artificial Opening Endoscopic, Diagnostic (ICD-10-PCS; 2019-06-11)
PROC: 0DB98ZX Excision of Duodenum, Via Natural or Artificial Opening Endoscopic, Diagnostic (ICD-10-PCS; principal; 2019-06-11 07:30)
DX: K25.4 Chronic or unspecified gastric ulcer with hemorrhage (principal); D62 Acute posthemorrhagic anemia; E87.1 Hypo-osmolality and hyponatremia; N17.9 Acute kidney failure, unspecified; E03.9 Hypothyroidism, unspecified; E11.51 Type 2 diabetes mellitus with diabetic peripheral angiopathy without gangrene; E11.621 Type 2 diabetes mellitus with foot ulcer; E78.5 Hyperlipidemia, unspecified; G40.909 Epilepsy, unspecified, not intractable, without status epilepticus; I10 Essential (primary) hypertension; I25.10 Atherosclerotic heart disease of native coronary artery without angina pectoris; I25.2 Old myocardial infarction; I70.235 Atherosclerosis of native arteries of right leg with ulceration of other part of foot; L97.512 Non-pressure chronic ulcer of other part of right foot with fat layer exposed; K29.70 Gastritis, unspecified, without bleeding; Z79.02 Long term (current) use of antithrombotics/antiplatelets; Z79.4 Long term (current) use of insulin; Z79.82 Long term (current) use of aspirin; Z79.890 Hormone replacement therapy; Z79.899 Other long term (current) drug therapy; Z82.49 Family history of ischemic heart disease and other diseases of the circulatory system; Z85.46 Personal history of malignant neoplasm of prostate; Z86.73 Personal history of transient ischemic attack (TIA), and cerebral infarction without residual deficits; Z87.01 Personal history of pneumonia (recurrent); Z87.891 Personal history of nicotine dependence; Z47.81 Encounter for orthopedic aftercare following surgical amputation; Z89.421 Acquired absence of other right toe(s); Z95.1 Presence of aortocoronary bypass graft; Z95.2 Presence of prosthetic heart valve; Z95.5 Presence of coronary angioplasty implant and graft; Z57.4 Occupational exposure to toxic agents in agriculture
CPT/HCPCS: 36415; 43239; 80048; 80053; 83605; 83690; 83735; 84484; 85025; 85610; 85730; 86850; 86900; 86901; 86920; 88305; 93005; 96361; 96374; 96375; 99285

== ENCOUNTER 2019-06-12 22:55 | Inpatient (IN) | payer MEDICARE ==
[2019-06-12 23:51] LABS: Calcium 8.9 mg/dL (8.4-10.2); Potassium 4.1 mmol/L (3.5-5.1); Total Bilirubin 0.3 mg/dL (0.2-1.3); Total Protein 5.8 g/dL (6.3-8.2)
[2019-06-12 23:59] LABS: Anisocytosis Moderate; Basophils % (A) 0 %; Eosinophils # (A) 0.5 k/uL (0-0.7); Eosinophils % (A) 3 %; HCT 24.6 % (39.0-53.0); HGB 7.7 gm/dL (13.0-17.5); Lymphocytes # (A) 1.3 k/uL (1.0-4.8); Lymphocytes % (A) 9 %; MCH 32.6 pg (25.0-35.0); MCHC 31.3 g/dL (31.0-37.0); MCV 104.2 fL (80.0-100.0); Macrocytosis Marked; Mean Platelet Volume 7.4; Monocytes # (A) 0.9 k/uL (0-1.0); Monocytes % (A) 6 %; Neutrophils # (A) 12.3 k/uL (1.3-7.7); Neutrophils % (A) 81 %; Platelet Count 747 k/uL (150-450); RBC 2.36 m/uL (4.30-5.90); RDW 22.9 % (11.5-15.5); WBC 15.2 k/uL (3.8-10.6)
--- NOTE | 2019-06-13 00:06 | ED ---
Nausea/Vomiting/Diarrhea HPI - General Chief complaint: Abdominal Pain Stated complaint: Vomiting Time Seen by Provider: 06/12/19 22:58 Source: patient, EMS Mode of arrival: EMS Limitations: no limitations - History of Present Illness MD complaint: vomiting -: hour(s) Description of Vomiting: food contents, blood-streaked Associated Abdominal Pain: Yes Location: periumbilical, epigastric Radiation: none Severity: mild Quality: cramping Consistency: now resolved Improves with: none Worsens with: none Context: recent surgery/procedure Associated Symptoms: denies other symptoms - Related Data Home Medications Medication Instructions Recorded Confirmed Ferrous Sulfate [Iron (65 MG 325 mg PO BID@0800,1700 03/11/16 06/14/19 Elemental)] Levothyroxine Sodium [Synthroid] 125 mcg PO DAILY 06/14/18 06/14/19 Hydroxyurea [Hydrea] 500 mg PO [id number] 01/06/19 06/14/19 Vit C/E/Zn/Coppr/Lutein/Zeaxan 2 cap PO DAILY 01/06/19 06/14/19 [Preservision Areds 2 Softgel] Insulin Glargine [Lantus] 15 unit SQ DAILY 03/14/19 06/14/19 Carvedilol [Coreg] 3.125 mg PO BID@0800,2100 03/16/19 06/14/19 Atorvastatin [Lipitor] 80 mg PO HS@2100 05/14/19 06/14/19 Magnesium Hydroxide [Milk of 7,200 mg PO DAILY PRN 06/09/19 06/14/19 Magnesia Concentrate] Menthol-Zinc Oxide Oint 1 applic TOPICAL TID 06/09/19 06/14/19 [Calmoseptine Oint] amLODIPine [Norvasc] 10 mg PO DAILY@1200 06/09/19 06/14/19 Bisacodyl [Dulcolax] 10 mg RECTAL DAILY PRN 06/12/19 06/14/19 Clopidogrel [Plavix] 75 mg PO DAILY@1700 06/12/19 06/14/19 INSULIN ASPART (NovoLOG) [NovoLOG See Protocol SQ ACHS 06/12/19 06/14/19 (formulary)] Losartan [Cozaar] 50 mg PO BID@0800,1700 07/30/19 08/01/19 Na Phos,M-B/Na Phos,Di-Ba [Fleet 133 ml RECTAL DAILY PRN 06/12/19 06/14/19 Adult] Pantoprazole Sodium [Protonix] 40 mg PO BID 06/14/19 06/14/19 Previous Rx's Medication Instructions Recorded cloNIDine HCL [Catapres] 0.1 mg PO TID #90 tab 05/23/19 hydrALAZINE HCL [Apresoline] 75 mg PO TID #90 tab 05/23/19 Gabapentin [Neurontin] 300 mg PO QID 3 Days #12 cap 06/11/19 traMADol HCL [Ultram] 50 mg PO Q6HR PRN 3 Days #12 tablet 06/11/19 Cefuroxime Axetil [Ceftin] 500 mg PO BID 3 Days #6 tab 06/15/19 Allergies Allergy/AdvReac Type Severity Reaction Status Date / Time No Known Allergies Allergy Verified 06/14/19 23:19 Review of Systems ROS Statement: Those systems with pertinent positive or pertinent negative responses have been documented in the HPI. ROS Other: All systems not noted in ROS Statement are negative. Constitutional: Denies: fever, chills Respiratory: Denies: cough, dyspnea Cardiovascular: Denies: chest pain, palpitations Gastrointestinal: Reports: abdominal pain, nausea, vomiting, hematemesis. Denies: diarrhea, constipation, melena, hematochezia Genitourinary: Denies: hematuria Musculoskeletal: Denies: back pain Skin: Denies: rash Neurological: Denies: headache, weakness Past Medical History Past Medical History: Coronary Artery Disease (CAD), CVA/TIA, Diabetes Mellitus, Hyperlipidemia, Hypertension, Myocardial Infarction ([place]), Neurologic Disorder, Pneumonia, Seizure Disorder, Thyroid Disorder, Vascular Disorder Additional Past Medical History / Comment(s): hx. 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 [employer], HAD SOME SKIN DISEASE WHERE HIS HANDS AND FEET WOULD BLISTER/PEEL HAD BX DONE- never found cause Last Myocardial Infarction Date:: 02/17/2016 History of Any Multi-Drug Resistant Organisms: None Reported Past Surgical History: Coronary Bypass/CABG, Heart Catheterization, Heart Catheterization With Stent, Orthopedic Surgery Additional Past Surgical History / Comment(s): 02/24/16 CABG quad bypass with aortic valve replacement (TAVR), RT HAND INDEX FINGER BONE CHIP REMOVED, RT WRIST SURG., colonoscopy, bilateral cataract removal, FEMORAL ENDARECTOMY WITH ANGIOPLASTY, POPLITEAL\TIBIAL ENDARECTOMY WITH FEMORAL TBIAL BYPASS Past Anesthesia/Blood Transfusion Reactions: No Reported Reaction Date of Last Stent Placement:: 2017 Past Psychological History: No Psychological Hx Reported Smoking Status: Former smoker Past Alcohol Use History: None Reported Past Drug Use History: None Reported - Past Family History Father Family Medical History: Coronary Artery Disease (CAD) Additional Family Medical History / Comment(s): VASCULAR PROBLEMS/valve replacement. Mother Family Medical History: Coronary Artery Disease (CAD) Additional Family Medical History / Comment(s): VASCULAR PROBLEMS HAD PIG VALVE. General Exam Limitations: no limitations General appearance: alert, in no apparent distress Head exam: Present: atraumatic, normocephalic Eye exam: Present: normal appearance. Absent: scleral icterus, conjunctival injection ENT exam: Present: normal oropharynx Respiratory exam: Present: normal lung sounds bilaterally. Absent: respiratory distress, wheezes, rales, rhonchi, stridor Cardiovascular Exam: Present: regular rate, normal rhythm, normal heart sounds. Absent: systolic murmur, diastolic murmur, rubs, gallop GI/Abdominal exam: Present: soft, normal bowel sounds. Absent: distended, tenderness, guarding, rebound, rigid, mass, bruit Extremities exam: Present: normal inspection, normal capillary refill. Absent: pedal edema, calf tenderness Back exam: Present: normal inspection Neurological exam: Present: alert Skin exam: Present: warm, dry, intact, normal color. Absent: rash Course Vital Signs 06/12/19 06/13/19 22:58 01:09 Temperature 98.1 F Pulse Rate 66 64 Respiratory 18 18 Rate Blood Pressure 168/58 157/56 O2 Sat by Pulse 99 99 Oximetry Medical Decision Making - Lab Data Result diagrams: 06/14/19 07:36 06/14/19 07:36 Lab Results 06/12/19 06/12/19 06/13/19 Range/Units 23:30 23:30 06:54 WBC 15.2 H (3.8-10.6) k/uL RBC 2.36 L (4.30-5.90) m/uL Hgb 7.7 L (13.0-17.5) gm/dL Hct 24.6 L (39.0-53.0) % MCV 104.2 H (80.0-100.0) fL MCH 32.6 (25.0-35.0) pg MCHC 31.3 (31.0-37.0) g/dL RDW 22.9 H (11.5-15.5) % Plt Count 747 H (150-450) k/uL Neutrophils % 81 % Neutrophils % (Manual) % Lymphocytes % 9 % Lymphocytes % (Manual) % Monocytes % 6 % Monocytes % (Manual) % Eosinophils % 3 % Eosinophils % (Manual) % Basophils % 0 % Neutrophils # 12.3 H (1.3-7.7) k/uL Neutrophils # (Manual) (1.3-7.7) k/uL Lymphocytes # 1.3 (1.0-4.8) k/uL Lymphocytes # (Manual) (1.0-4.8) k/uL Monocytes # 0.9 (0-1.0) k/uL Monocytes # (Manual) (0-1.0) k/uL Eosinophils # 0.5 (0-0.7) k/uL Eosinophils # (Manual) (0-0.7) k/uL Basophils # 0.0 (0-0.2) k/uL Nucleated RBCs (0-0) /100 WBC Differential Comment Manual Slide Review Performed Polychromasia Present Hypochromasia Hypochromasia (manual) Present Anisocytosis Moderate Macrocytosis Marked A Sodium 133 L (137-145) mmol/L Potassium 4.1 (3.5-5.1) mmol/L Chloride 103 (98-107) mmol/L Carbon Dioxide 21 L (22-30) mmol/L Anion Gap 9 mmol/L BUN 24 H (9-20) mg/dL Creatinine 1.26 H (0.66-1.25) mg/dL Est GFR (CKD-EPI)AfAm 66 (>60 ml/min/1.73 sqM) Est GFR (CKD-EPI)NonAf 57 (>60 ml/min/1.73 sqM) Glucose 153 H (74-99) mg/dL POC Glucose (mg/dL) 147 H (75-99) mg/dL POC Glu Supervisor Cytogenetic [facility] Elisabeth Garcia Calcium 8.9 (8.4-10.2) mg/dL Total Bilirubin 0.3 (0.2-1.3) mg/dL AST 18 (17-59) U/L ALT 26 (21-72) U/L Alkaline Phosphatase 113 (38-126) U/L Total Protein 5.8 L (6.3-8.2) g/dL Albumin 3.0 L (3.5-5.0) g/dL Amylase 57 (30-110) U/L Lipase 29 (23-300) U/L Blood Type Blood Type Recheck Antibody Screen Crossmatch Spec Expiration Date 06/13/19 06/13/19 06/13/19 Range/Units 07:51 11:20 14:00 WBC 14.3 H 13.8 H (3.8-10.6) k/uL RBC 2.30 L 2.13 L (4.30-5.90) m/uL Hgb 7.7 L 7.0 L (13.0-17.5) gm/dL Hct 24.9 L 22.1 L (39.0-53.0) % MCV 108.4 H 103.7 H (80.0-100.0) fL MCH 33.5 32.0 (25.0-35.0) pg MCHC 30.9 L 30.8 L (31.0-37.0) g/dL RDW 22.2 H 22.0 H (11.5-15.5) % Plt Count 669 H 681 H (150-450) k/uL Neutrophils % 80 83 % Neutrophils % (Manual) % Lymphocytes % 10 8 % Lymphocytes % (Manual) % Monocytes % 6 5 % Monocytes % (Manual) % Eosinophils % 3 2 % Eosinophils % (Manual) % Basophils % 1 0 % Neutrophils # 11.4 H 11.4 H (1.3-7.7) k/uL Neutrophils # (Manual) (1.3-7.7) k/uL Lymphocytes # 1.4 1.2 (1.0-4.8) k/uL Lymphocytes # (Manual) (1.0-4.8) k/uL Monocytes # 0.8 0.7 (0-1.0) k/uL Monocytes # (Manual) (0-1.0) k/uL Eosinophils # 0.4 0.3 (0-0.7) k/uL Eosinophils # (Manual) (0-0.7) k/uL Basophils # 0.1 0.1 (0-0.2) k/uL Nucleated RBCs (0-0) /100 WBC Differential Comment Manual Slide Review Performed Performed Polychromasia Present Present Hypochromasia Moderate Slight Hypochromasia (manual) Anisocytosis Moderate Moderate Macrocytosis Marked A Marked A Sodium (137-145) mmol/L Potassium (3.5-5.1) mmol/L Chloride (98-107) mmol/L Carbon Dioxide (22-30) mmol/L Anion Gap mmol/L BUN (9-20) mg/dL Creatinine (0.66-1.25) mg/dL Est GFR (CKD-EPI)AfAm (>60 ml/min/1.73 sqM) Est GFR (CKD-EPI)NonAf (>60 ml/min/1.73 sqM) Glucose (74-99) mg/dL POC Glucose (mg/dL) 146 H (75-99) mg/dL POC Glu Supervisor Cytogenetic Laboratory ID Elisabeth Colón Calcium (8.4-10.2) mg/dL Total Bilirubin (0.2-1.3) mg/dL AST (17-59) U/L ALT (21-72) U/L Alkaline Phosphatase (38-126) U/L Total Protein (6.3-8.2) g/dL Albumin (3.5-5.0) g/dL Amylase (30-110) U/L Lipase (23-300) U/L Blood Type Blood Type Recheck Antibody Screen Crossmatch Spec Expiration Date 06/13/19 06/13/19 06/13/19 Range/Units 17:32 18:07 19:55 WBC 16.7 H (3.8-10.6) k/uL RBC 2.02 L (4.30-5.90) m/uL Hgb 6.8 L* (13.0-17.5) gm/dL Hct 21.6 L (39.0-53.0) % MCV 106.8 H (80.0-100.0) fL MCH 33.5 (25.0-35.0) pg MCHC 31.4 (31.0-37.0) g/dL RDW 22.3 H (11.5-15.5) % Plt Count 679 H (150-450) k/uL Neutrophils % 84 % Neutrophils % (Manual) % Lymphocytes % 7 % Lymphocytes % (Manual) % Monocytes % 6 % Monocytes % (Manual) % Eosinophils % 2 % Eosinophils % (Manual) % Basophils % 0 % Neutrophils # 14.1 H (1.3-7.7) k/uL Neutrophils # (Manual) (1.3-7.7) k/uL Lymphocytes # 1.2 (1.0-4.8) k/uL Lymphocytes # (Manual) (1.0-4.8) k/uL Monocytes # 0.9 (0-1.0) k/uL Monocytes # (Manual) (0-1.0) k/uL Eosinophils # 0.2 (0-0.7) k/uL Eosinophils # (Manual) (0-0.7) k/uL Basophils # 0.1 (0-0.2) k/uL Nucleated RBCs (0-0) /100 WBC Differential Comment Manual Slide Review Polychromasia Hypochromasia Slight Hypochromasia (manual) Anisocytosis Moderate Macrocytosis Moderate Sodium (137-145) mmol/L Potassium (3.5-5.1) mmol/L Chloride (98-107) mmol/L Carbon Dioxide (22-30) mmol/L Anion Gap mmol/L BUN (9-20) mg/dL Creatinine (0.66-1.25) mg/dL Est GFR (CKD-EPI)AfAm (>60 ml/min/1.73 sqM) Est GFR (CKD-EPI)NonAf (>60 ml/min/1.73 sqM) Glucose (74-99) mg/dL POC Glucose (mg/dL) 50 L 210 H (75-99) mg/dL POC Glu Supervisor Cytogenetic Laboratory ID Rosa Lirajosephine Colón Elisabeth Calcium (8.4-10.2) mg/dL Total Bilirubin (0.2-1.3) mg/dL AST (17-59) U/L ALT (21-72) U/L Alkaline Phosphatase (38-126) U/L Total Protein (6.3-8.2) g/dL Albumin (3.5-5.0) g/dL Amylase (30-110) U/L Lipase (23-300) U/L Blood Type Blood Type Recheck Antibody Screen Crossmatch Spec Expiration Date 06/13/19 06/13/19 06/14/19 Range/Units 20:09 21:20 07:07 WBC (3.8-10.6) k/uL RBC (4.30-5.90) m/uL Hgb (13.0-17.5) gm/dL Hct (39.0-53.0) % MCV (80.0-100.0) fL MCH (25.0-35.0) pg MCHC (31.0-37.0) g/dL RDW (11.5-15.5) % Plt Count (150-450) k/uL Neutrophils % % Neutrophils % (Manual) % Lymphocytes % % Lymphocytes % (Manual) % Monocytes % % Monocytes % (Manual) % Eosinophils % % Eosinophils % (Manual) % Basophils % % Neutrophils # (1.3-7.7) k/uL Neutrophils # (Manual) (1.3-7.7) k/uL Lymphocytes # (1.0-4.8) k/uL Lymphocytes # (Manual) (1.0-4.8) k/uL Monocytes # (0-1.0) k/uL Monocytes # (Manual) (0-1.0) k/uL Eosinophils # (0-0.7) k/uL Eosinophils # (Manual) (0-0.7) k/uL Basophils # (0-0.2) k/uL Nucleated RBCs (0-0) /100 WBC Differential Comment Manual Slide Review Polychromasia Hypochromasia Hypochromasia (manual) Anisocytosis Macrocytosis Sodium (137-145) mmol/L Potassium (3.5-5.1) mmol/L Chloride (98-107) mmol/L Carbon Dioxide (22-30) mmol/L Anion Gap mmol/L BUN (9-20) mg/dL Creatinine (0.66-1.25) mg/dL Est GFR (CKD-EPI)AfAm (>60 ml/min/1.73 sqM) Est GFR (CKD-EPI)NonAf (>60 ml/min/1.73 sqM) Glucose (74-99) mg/dL POC Glucose (mg/dL) 134 H 80 (75-99) mg/dL POC Glu Supervisor Cytogenetic Laboratory ID Marge Rm Laura Calcium (8.4-10.2) mg/dL Total Bilirubin (0.2-1.3) mg/dL AST (17-59) U/L ALT (21-72) U/L Alkaline Phosphatase (38-126) U/L Total Protein (6.3-8.2) g/dL Albumin (3.5-5.0) g/dL Amylase (30-110) U/L Lipase (23-300) U/L Blood Type O Negative Blood Type Recheck No Antibody Screen NEGATIVE Crossmatch See Detail Spec Expiration Date 06/16/2019 - 231906/14/19 06/14/19 Range/Units 07:36 07:36 WBC 17.5 H (3.8-10.6) k/uL RBC 2.55 L (4.30-5.90) m/uL Hgb 8.2 L (13.0-17.5) gm/dL Hct 25.5 L (39.0-53.0) % MCV 100.2 H D (80.0-100.0) fL MCH 32.1 (25.0-35.0) pg MCHC 32.0 (31.0-37.0) g/dL RDW 22.2 H (11.5-15.5) % Plt Count 603 H (150-450) k/uL Neutrophils % % Neutrophils % (Manual) 82 % Lymphocytes % % Lymphocytes % (Manual) 9 % Monocytes % % Monocytes % (Manual) 8 % Eosinophils % % Eosinophils % (Manual) 2 % Basophils % % Neutrophils # (1.3-7.7) k/uL Neutrophils # (Manual) 14.35 H (1.3-7.7) k/uL Lymphocytes # (1.0-4.8) k/uL Lymphocytes # (Manual) 1.58 (1.0-4.8) k/uL Monocytes # (0-1.0) k/uL Monocytes # (Manual) 1.40 H (0-1.0) k/uL Eosinophils # (0-0.7) k/uL Eosinophils # (Manual) 0.35 (0-0.7) k/uL Basophils # (0-0.2) k/uL Nucleated RBCs 1 H (0-0) /100 WBC Differential Comment Manual Slide Review Performed Polychromasia Present Hypochromasia Slight Hypochromasia (manual) Anisocytosis Moderate Macrocytosis Marked A Sodium 134 L (137-145) mmol/L Potassium 4.0 (3.5-5.1) mmol/L Chloride 106 (98-107) mmol/L Carbon Dioxide 19 L (22-30) mmol/L Anion Gap 9 mmol/L BUN 17 (9-20) mg/dL Creatinine 1.16 (0.66-1.25) mg/dL Est GFR (CKD-EPI)AfAm 74 (>60 ml/min/1.73 sqM) Est GFR (CKD-EPI)NonAf 64 (>60 ml/min/1.73 sqM) Glucose 73 L (74-99) mg/dL POC Glucose (mg/dL) (75-99) mg/dL POC Glu Supervisor Cytogenetic Laboratory ID Calcium 8.4 (8.4-10.2) mg/dL Total Bilirubin (0.2-1.3) mg/dL AST (17-59) U/L ALT (21-72) U/L Alkaline Phosphatase (38-126) U/L Total Protein (6.3-8.2) g/dL Albumin (3.5-5.0) g/dL Amylase (30-110) U/L Lipase (23-300) U/L Blood Type Blood Type Recheck Antibody Screen Crossmatch Spec Expiration Date Disposition Clinical Impression: Upper GI bleed, Anemia Disposition: ADMITTED IP TO THIS [facility] Condition: Fair Is patient prescribed a controlled substance at d/c from ED?: No
[2019-06-13 00:14] LABS: Hypochromasia (M) Present; Polychromasia Present
[2019-06-13] MEDS ORDERED: NALOXONE 0.4 MG/ML 1 ML VIAL IV PRN (02:23)
[2019-06-13] MEDS ORDERED: ONDANSETRON 4 MG/2 ML VIAL IVP PRN (02:23)
[2019-06-13] MEDS ORDERED: PROCHLORPERAZINE 5 MG TAB PO PRN (02:23)
[2019-06-13] MEDS ORDERED: traMADol 50 MG TAB PO PRN (02:26)
[2019-06-13] MEDS: SODIUM CHLORIDE 0.9% 1,000 ML IV SCH (03:17)
[2019-06-13 07:06] LABS: Glucose,Whole Blood 147 mg/dL (75-99)
[2019-06-13] MEDS ORDERED: PANTOPRAZOLE 40 MG TABLET PO SCH (08:00)
[2019-06-13] MEDS: INSULIN DETEMIR (LEVEMIR) 100 UNIT/ML SYR SQ SCH (08:56)
[2019-06-13] MEDS: cloNIDine HCL 0.1 MG TAB PO SCH ×3 (08:56→20:52)
[2019-06-13] MEDS: GABAPENTIN 300 MG CAP PO SCH ×4 (08:56→20:52)
[2019-06-13] MEDS: hydrALAZINE HCL 25 MG TAB PO SCH ×3 (08:57→20:52)
[2019-06-13] MEDS: FERROUS SULFATE 325 MG TAB PO SCH ×2 (08:57→17:29)
[2019-06-13] MEDS: LOSARTAN 50 MG TAB PO SCH ×2 (08:57→17:29)
[2019-06-13] MEDS: CARVEDILOL 3.125 MG TAB PO SCH ×2 (08:57→20:52)
[2019-06-13] MEDS: LEVOTHYROXINE 125 MCG TAB PO SCH (08:57)
[2019-06-13] MEDS: HYDROXYUREA 500 MG CAP PO SCH (09:01)
[2019-06-13 09:05] LABS: Anisocytosis Moderate; Basophils # (A) 0.1 k/uL (0-0.2); Basophils % (A) 1 %; Eosinophils # (A) 0.4 k/uL (0-0.7); Eosinophils % (A) 3 %; HCT 24.9 % (39.0-53.0); HGB 7.7 gm/dL (13.0-17.5); Hypochromasia Moderate; Lymphocytes # (A) 1.4 k/uL (1.0-4.8); Lymphocytes % (A) 10 %; MCH 33.5 pg (25.0-35.0); MCHC 30.9 g/dL (31.0-37.0); MCV 108.4 fL (80.0-100.0); Macrocytosis Marked; Mean Platelet Volume 7.5; Monocytes # (A) 0.8 k/uL (0-1.0); Monocytes % (A) 6 %; Neutrophils # (A) 11.4 k/uL (1.3-7.7); Neutrophils % (A) 80 %; Platelet Count 669 k/uL (150-450); RDW 22.2 % (11.5-15.5); WBC 14.3 k/uL (3.8-10.6)
[2019-06-13 10:32] LABS: Polychromasia Present
[2019-06-13 11:32] LABS: Glucose,Whole Blood 146 mg/dL (75-99)
[2019-06-13] MEDS: amLODIPine 10 MG TAB PO SCH (12:51)
[2019-06-13] MEDS: INSULIN ASPART (NovoLOG) 100 UNIT/ML VIAL SQ SCH ×3 (12:51→20:47)
--- NOTE | 2019-06-13 12:51 | P.HPIM ---
History of Present Illness 68-year-old male was recently discharged to [facility] came back again with nausea vomiting and hematemesis, multiple episodes. Patient had a recent upper GI endoscopy showed severe gastritis. Peptic ulcer disease and esophagitis. Patient was discharged on Prilosec. She does have leukocytosis denied any cough denied any dysuria. Patient potassium is 133 secondary to intravascular depletion from nausea vomiting patient was started on IV fluids IV Protonix will be monitored overnight here. Review of Systems REVIEW OF SYSTEMS: CONSTITUTIONAL: No fever, no malaise, no fatigue. HEENT: No recent visual problems or hearing problems. Denied any sore throat. CARDIOVASCULAR: No chest pain, orthopnea, PND, no palpitations, no syncope. PULMONARY: No shortness of breath, no cough, no hemoptysis. GASTROINTESTINAL: No diarrhea, no abdominal pain. NEUROLOGICAL: No headaches, no weakness, no numbness. HEMATOLOGICAL: Denies any bleeding or petechiae. GENITOURINARY: Denies any burning micturition, frequency, or urgency. MUSCULOSKELETAL/RHEUMATOLOGICAL: Denies any joint pain, swelling, or any muscle pain. ENDOCRINE: Denies any polyuria or polydipsia. The rest of the 14-point review of systems is negative. Past Medical History Past Medical History: Coronary Artery Disease (CAD), CVA/TIA, Diabetes Mellitus, Hyperlipidemia, Hypertension, Myocardial Infarction ([place]), Neurologic Disorder, Pneumonia, Seizure Disorder, Thyroid Disorder, Vascular Disorder Additional Past Medical History / Comment(s): hx. 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 [employer], HAD SOME SKIN DISEASE WHERE HIS HANDS AND FEET WOULD BLISTER/PEEL HAD BX DONE- never found cause Last Myocardial Infarction Date:: 02/17/2016 History of Any Multi-Drug Resistant Organisms: None Reported Past Surgical History: Coronary Bypass/CABG, Heart Catheterization, Heart Catheterization With Stent, Orthopedic Surgery Additional Past Surgical History / Comment(s): 02/24/16 CABG quad bypass with aortic valve replacement (TAVR), RT HAND INDEX FINGER BONE CHIP REMOVED, RT WRIST SURG., colonoscopy, bilateral cataract removal, FEMORAL ENDARECTOMY WITH ANGIOPLASTY, POPLITEAL\TIBIAL ENDARECTOMY WITH FEMORAL TBIAL BYPASS Past Anesthesia/Blood Transfusion Reactions: No Reported Reaction Date of Last Stent Placement:: 2017 Past Psychological History: No Psychological Hx Reported Additional Psychological History / Comment(s): PT RECENTLY ADMITTED 05/15-05/24. YG RIDDHI TO [facility]. Smoking Status: Former smoker Past Alcohol Use History: None Reported Additional Past Alcohol Use History / Comment(s): STARTED SMOKING AT AGE 18 quit may 2019. USED TO DRINK DAILY (18-24 PACK OF BEER PER DAY), has not drank since 2012 Past Drug Use History: None Reported - Past Family History Father Family Medical History: Coronary Artery Disease (CAD) Additional Family Medical History / Comment(s): VASCULAR PROBLEMS/valve replacement. Mother Family Medical History: Coronary Artery Disease (CAD) Additional Family Medical History / Comment(s): VASCULAR PROBLEMS HAD PIG VALVE. Medications and Allergies Home Medications Medication Instructions Recorded Confirmed Type Ferrous Sulfate [Iron (65 MG 325 mg PO BID@0800,1700 03/11/16 06/12/19 History Elemental)] Levothyroxine Sodium [Synthroid] 125 mcg PO DAILY 06/14/18 06/12/19 History Hydroxyurea [Hydrea] 500 mg PO MOTUWETHFR 01/06/19 06/12/19 History Vit C/E/Zn/Coppr/Lutein/Zeaxan 2 cap PO DAILY 01/06/19 06/12/19 History [Preservision Areds 2 Softgel] Insulin Glargine [Lantus] 15 unit SQ DAILY 03/14/19 06/12/19 History Carvedilol [Coreg] 3.125 mg PO BID@0800,2100 03/16/19 06/12/19 History Atorvastatin [Lipitor] 80 mg PO HS@2100 05/14/19 06/12/19 History cloNIDine HCL [Catapres] 0.1 mg PO TID #90 tab 05/23/19 06/12/19 Rx hydrALAZINE HCL [Apresoline] 75 mg PO TID #90 tab 05/23/19 06/12/19 Rx Magnesium Hydroxide [Milk of 7,200 mg PO DAILY PRN 06/09/19 06/12/19 History Magnesia Concentrate] Menthol-Zinc Oxide Oint 1 applic TOPICAL TID 06/09/19 06/12/19 History [Calmoseptine Oint] amLODIPine [Norvasc] 10 mg PO DAILY@1200 07/27/19 07/30/19 History Aspirin 81 mg PO DAILY #1 tab 06/11/19 06/12/19 Rx Gabapentin [Neurontin] 300 mg PO QID 3 Days #12 cap 06/11/19 06/12/19 Rx traMADol HCL [Ultram] 50 mg PO Q6HR PRN 3 Days #12 tablet 06/11/19 06/12/19 Rx Bisacodyl [Dulcolax] 10 mg RECTAL DAILY PRN 06/12/19 06/12/19 History Clopidogrel [Plavix] 75 mg PO DAILY@1700 06/12/19 06/12/19 History INSULIN ASPART (NovoLOG) [NovoLOG See Protocol SQ ACHS 06/12/19 06/12/19 History (formulary)] Losartan [Cozaar] 50 mg PO BID@0800,1700 06/12/19 06/12/19 History Na Phos,M-B/Na Phos,Di-Ba [Fleet 133 ml RECTAL DAILY PRN 06/12/19 06/12/19 History Adult] Pantoprazole Sodium [Protonix] 40 mg PO DAILY@0800 06/12/19 06/12/19 History Allergies Allergy/AdvReac Type Severity Reaction Status Date / Time No Known Allergies Allergy Verified 06/12/19 23:04 Physical Exam Vitals: Vital Signs Temp Pulse Pulse Resp BP BP Pulse Ox 06/13/19 07:00 98.3 F 68 16 158/66 97 06/13/19 05:45 15 06/13/19 05:43 98.3 F 65 15 156/75 96 06/13/19 03:29 98.1 F 64 18 157/59 98 06/13/19 01:09 64 18 157/56 99 06/12/19 22:58 98.1 F 66 18 168/58 99 Intake and Output 06/12/19 06/13/19 06/13/19 22:59 06:59 14:59 Other: Voiding Method Indwelling Catheter Indwelling Catheter Weight 72.575 kg PHYSICAL EXAMINATION: GENERAL: The patient is alert and oriented x3, not in any acute distress. Well developed, well nourished. HEENT: Pupils are round and equally reacting to light. EOMI. No scleral icterus. No conjunctival pallor. Normocephalic, atraumatic. No pharyngeal erythema. No thyromegaly. CARDIOVASCULAR: S1 and S2 present. No murmurs, rubs, or gallops. PULMONARY: Chest is clear to auscultation, no wheezing or crackles. ABDOMEN: Soft, nontender, nondistended, normoactive bowel sounds. No palpable organomegaly. MUSCULOSKELETAL: No joint swelling or deformity. EXTREMITIES: No cyanosis, clubbing, or pedal edema. NEUROLOGICAL: Gross neurological examination did not reveal any focal deficits. SKIN: No rashes. Results CBC & Chem 7: 06/13/19 07:51 06/12/19 23:30 Labs: Abnormal Lab Results - Last 24 Hours (Table) 06/12/19 06/12/19 06/13/19 Range/Units 23:30 23:30 06:54 WBC 15.2 H (3.8-10.6) k/uL RBC 2.36 L (4.30-5.90) m/uL Hgb 7.7 L (13.0-17.5) gm/dL Hct 24.6 L (39.0-53.0) % MCV 104.2 H (80.0-100.0) fL MCHC (31.0-37.0) g/dL RDW 22.9 H (11.5-15.5) % Plt Count 747 H (150-450) k/uL Neutrophils # 12.3 H (1.3-7.7) k/uL Macrocytosis Marked A Sodium 133 L (137-145) mmol/L Carbon Dioxide 21 L (22-30) mmol/L BUN 24 H (9-20) mg/dL Creatinine 1.26 H (0.66-1.25) mg/dL Glucose 153 H (74-99) mg/dL POC Glucose (mg/dL) 147 H (75-99) mg/dL Total Protein 5.8 L (6.3-8.2) g/dL Albumin 3.0 L (3.5-5.0) g/dL 06/13/19 06/13/19 Range/Units 07:51 11:20 WBC 14.3 H (3.8-10.6) k/uL RBC 2.30 L (4.30-5.90) m/uL Hgb 7.7 L (13.0-17.5) gm/dL Hct 24.9 L (39.0-53.0) % MCV 108.4 H (80.0-100.0) fL MCHC 30.9 L (31.0-37.0) g/dL RDW 22.2 H (11.5-15.5) % Plt Count 669 H (150-450) k/uL Neutrophils # 11.4 H (1.3-7.7) k/uL Macrocytosis Marked A Sodium (137-145) mmol/L Carbon Dioxide (22-30) mmol/L BUN (9-20) mg/dL Creatinine (0.66-1.25) mg/dL Glucose (74-99) mg/dL POC Glucose (mg/dL) 146 H (75-99) mg/dL Total Protein (6.3-8.2) g/dL Albumin (3.5-5.0) g/dL Assessment and Plan Plan: -Acute upper GI bleed and acute blood loss anemia from peptic ulcer disease, acute gastritis and esophagitis. Protonix and IV fluids as mentioned above -hypovolemic hyponatremia IV fluids as mentioned above secondary to nausea vomiting intravascular depletion -Leukocytosis reactive secondary to GI bleed without any evidence of infection at this time -Coronary artery disease -type 2 diabetes mellitus -Hyperlipidemia -Hypertension next and-seizure disorder hypothyroidism -Chronic kidney disease stage III secondary to diabetic nephropathy For above-mentioned chronic medical problems patient was resumed on appropriate home medications
--- NOTE | 2019-06-13 13:58 | P.CONS ---
History of Present Illness - Reason for Consult Consult date: 06/13/19 Blood in stool Requesting physician: Lexus Abreu - Chief Complaint Nausea vomiting hematemesis - History of Present Illness 68-year-old gentleman past medical history of CAD status post CABG, CVA, diabetes, hypertension, hyperlipidemia, seizure disorder, hypothyroidism recently hospitalized and discharged secondary to upper GI bleed hematemesis underwent EGD with Dr. Hollis findings of 2 nonbleeding antral ulcers without higher stigmata for rebleeding. Severe pangastritis. Biopsies benign H. pylori negative. Readmitted with multiple episodes of coffee ground emesis with minimal abdominal discomfort. Denies melena or gross heamtochezia. Discharge hemoglobin 7.4. Admission hemoglobin 7.7. MCV 104. Platelets 747. BUN 24. Creatinine 1.2. Review of Systems Constitutional: Denies fever, chills, sweats, weight gain, or loss. HEENT: Negative for migraines, blurred vision or loss, earaches, drainage, tinnitus, oral mucosal lesions, dysphagia, or odynophagia. Cardiac: Negative for chest pain, arrhythmias, or palpitation. Respiratory: Negative for shortness of breath, hemoptysis, cough, or sputum production. Gastrointestinal: See HPI for pertinent findings. Genitourinary: Negative for hematuria, urgency, frequency, polyuria, dysuria, or penile discharge. Musculoskeletal: Negative for muscle aches, swelling, arthritis, and arthralgias. Neurologic: Negative for stroke or TIA. Endocrine: Negative for thyroid problems. Skin: Negative for rash or itching. Psychiatric: Negative history for depression and anxiety Past Medical History Past Medical History: Coronary Artery Disease (CAD), CVA/TIA, Diabetes Mellitus, Hyperlipidemia, Hypertension, Myocardial Infarction ([place]), Neurologic Disorder, Pneumonia, Seizure Disorder, Thyroid Disorder, Vascular Disorder Additional Past Medical History / Comment(s): hx. 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 [employer], HAD SOME SKIN DISEASE WHERE HIS HANDS AND FEET WOULD BLISTER/PEEL HAD BX DONE- never found cause Last Myocardial Infarction Date:: 02/17/2016 History of Any Multi-Drug Resistant Organisms: None Reported Past Surgical History: Coronary Bypass/CABG, Heart Catheterization, Heart Catheterization With Stent, Orthopedic Surgery Additional Past Surgical History / Comment(s): 02/24/16 CABG quad bypass with aortic valve replacement (TAVR), RT HAND INDEX FINGER BONE CHIP REMOVED, RT WRIST SURG., colonoscopy, bilateral cataract removal, FEMORAL ENDARECTOMY WITH ANGIOPLASTY, POPLITEAL\TIBIAL ENDARECTOMY WITH FEMORAL TBIAL BYPASS Past Anesthesia/Blood Transfusion Reactions: No Reported Reaction Date of Last Stent Placement:: 2017 Past Psychological History: No Psychological Hx Reported Additional Psychological History / Comment(s): PT RECENTLY ADMITTED 05/15-05/24. DISCHARGED TO [facility]. Smoking Status: Former smoker Past Alcohol Use History: None Reported Additional Past Alcohol Use History / Comment(s): STARTED SMOKING AT AGE 18 quit may 2019. USED TO DRINK DAILY (18-24 PACK OF BEER PER DAY), has not drank since 2012 Past Drug Use History: None Reported - Past Family History Father Family Medical History: Coronary Artery Disease (CAD) Additional Family Medical History / Comment(s): VASCULAR PROBLEMS/valve replacement. Mother Family Medical History: Coronary Artery Disease (CAD) Additional Family Medical History / Comment(s): VASCULAR PROBLEMS HAD PIG VALVE. Medications and Allergies Home Medications Medication Instructions Recorded Confirmed Type Ferrous Sulfate [Iron (65 MG 325 mg PO BID@0800,1700 03/11/16 06/12/19 History Elemental)] Levothyroxine Sodium [Synthroid] 125 mcg PO DAILY 06/14/18 06/12/19 History Hydroxyurea [Hydrea] 500 mg PO MOTUWETHFR 01/06/19 06/12/19 History Vit C/E/Zn/Coppr/Lutein/Zeaxan 2 cap PO DAILY 01/06/19 06/12/19 History [Preservision Areds 2 Softgel] Insulin Glargine [Lantus] 15 unit SQ DAILY 03/14/19 06/12/19 History Carvedilol [Coreg] 3.125 mg PO BID@0800,2100 03/16/19 06/12/19 History Atorvastatin [Lipitor] 80 mg PO HS@2100 05/14/19 06/12/19 History cloNIDine HCL [Catapres] 0.1 mg PO TID #90 tab 05/23/19 06/12/19 Rx hydrALAZINE HCL [Apresoline] 75 mg PO TID #90 tab 05/23/19 06/12/19 Rx Magnesium Hydroxide [Milk of 7,200 mg PO DAILY PRN 06/09/19 06/12/19 History Magnesia Concentrate] Menthol-Zinc Oxide Oint 1 applic TOPICAL TID 06/09/19 06/12/19 History [Calmoseptine Oint] amLODIPine [Norvasc] 10 mg PO DAILY@1200 06/09/19 06/12/19 History Aspirin 81 mg PO DAILY #1 tab 06/11/19 06/12/19 Rx Gabapentin [Neurontin] 300 mg PO QID 3 Days #12 cap 06/11/19 06/12/19 Rx traMADol HCL [Ultram] 50 mg PO Q6HR PRN 3 Days #12 tablet 06/11/19 06/12/19 Rx Bisacodyl [Dulcolax] 10 mg RECTAL DAILY PRN 06/12/19 06/12/19 History Clopidogrel [Plavix] 75 mg PO DAILY@1700 06/12/19 06/12/19 History INSULIN ASPART (NovoLOG) [NovoLOG See Protocol SQ ACHS 06/12/19 06/12/19 History (formulary)] Losartan [Cozaar] 50 mg PO BID@0800,1700 06/12/19 06/12/19 History Na Phos,M-B/Na Phos,Di-Ba [Fleet 133 ml RECTAL DAILY PRN 06/12/19 06/12/19 History Adult] Pantoprazole Sodium [Protonix] 40 mg PO DAILY@0800 06/12/19 06/12/19 History Allergies Allergy/AdvReac Type Severity Reaction Status Date / Time No Known Allergies Allergy Verified 06/12/19 23:04 Physical Exam Vitals: Vital Signs Temp Pulse Pulse Resp BP BP Pulse Ox 06/13/19 07:00 98.3 F 68 16 158/66 97 06/13/19 05:45 15 06/13/19 05:43 98.3 F 65 15 156/75 96 06/13/19 03:29 98.1 F 64 18 157/59 98 06/13/19 01:09 64 18 157/56 99 06/12/19 22:58 98.1 F 66 18 168/58 99 Intake and Output 06/12/19 06/13/19 06/13/19 22:59 06:59 14:59 Other: Voiding Method Indwelling Catheter Indwelling Catheter Weight 72.575 kg General appearance: The patient is alert, oriented, in no acute distress. HET: Head is normocephalic and atraumatic. Pupils are equal and reactive. Oropharynx is clear without lesions. Neck: Supple without lymphadenopathy. Trachea midline. Heart: S1 S2. Regular rate and rhythm. Lungs: No crackles or wheezes are heard. Abdomen: Soft, nontender, nondistended with bowel sounds. No peritoneal signs. No palpable organomegaly or masses. Extremities: Normal skin color and turgor. No cyanosis, rash, ulceration, clubbing, or edema. Radial and pedal pulses are 2/4 bilaterally. Neurological: No focal deficits. Strength and sensation are grossly intact. Results CBC & Chem 7: 06/13/19 07:51 06/12/19 23:30 Labs: Abnormal Lab Results - Last 24 Hours (Table) 06/12/19 06/12/19 06/13/19 Range/Units 23:30 23:30 06:54 WBC 15.2 H (3.8-10.6) k/uL RBC 2.36 L (4.30-5.90) m/uL Hgb 7.7 L (13.0-17.5) gm/dL Hct 24.6 L (39.0-53.0) % MCV 104.2 H (80.0-100.0) fL MCHC (31.0-37.0) g/dL RDW 22.9 H (11.5-15.5) % Plt Count 747 H (150-450) k/uL Neutrophils # 12.3 H (1.3-7.7) k/uL Macrocytosis Marked A Sodium 133 L (137-145) mmol/L Carbon Dioxide 21 L (22-30) mmol/L BUN 24 H (9-20) mg/dL Creatinine 1.26 H (0.66-1.25) mg/dL Glucose 153 H (74-99) mg/dL POC Glucose (mg/dL) 147 H (75-99) mg/dL Total Protein 5.8 L (6.3-8.2) g/dL Albumin 3.0 L (3.5-5.0) g/dL 06/13/19 06/13/19 Range/Units 07:51 11:20 WBC 14.3 H (3.8-10.6) k/uL RBC 2.30 L (4.30-5.90) m/uL Hgb 7.7 L (13.0-17.5) gm/dL Hct 24.9 L (39.0-53.0) % MCV 108.4 H (80.0-100.0) fL MCHC 30.9 L (31.0-37.0) g/dL RDW 22.2 H (11.5-15.5) % Plt Count 669 H (150-450) k/uL Neutrophils # 11.4 H (1.3-7.7) k/uL Macrocytosis Marked A Sodium (137-145) mmol/L Carbon Dioxide (22-30) mmol/L BUN (9-20) mg/dL Creatinine (0.66-1.25) mg/dL Glucose (74-99) mg/dL POC Glucose (mg/dL) 146 H (75-99) mg/dL Total Protein (6.3-8.2) g/dL Albumin (3.5-5.0) g/dL Assessment and Plan (1) Hematemesis Current Visit: Yes Status: Acute Code(s): K92.0 - HEMATEMESIS SNOMED Code(s): 8725509 (2) Acute blood loss anemia Current Visit: Yes Status: Acute Code(s): D62 - ACUTE POSTHEMORRHAGIC ANEMIA SNOMED Code(s): 794700642 (3) Antral ulcer Current Visit: Yes Status: Acute Code(s): K25.9 - GASTRIC ULCER, UNSP ACUTE OR CHRONIC, W/O HEMOR OR PERF SNOMED Code(s): 6841287746271 (4) Upper GI bleed Current Visit: Yes Status: Acute Code(s): K92.2 - GASTROINTESTINAL HEMORRHAGE, UNSPECIFIED SNOMED Code(s): 31647709 Plan: 1. Protonix 40 g twice daily. CBC monitoring. Hold aspirin Plavix. Inpatient EGD contingent on clinical course but not planned at this time. Clear liquids. We'll follow with you. Thank you for this kind referral and the opportunity to participate in the care of your patient. This consultation was discussed with Dr. Yin. The impression and plan of care have been directed as dictated.
[2019-06-13 15:05] LABS: Anisocytosis Moderate; Basophils # (A) 0.1 k/uL (0-0.2); Basophils % (A) 0 %; Eosinophils # (A) 0.3 k/uL (0-0.7); Eosinophils % (A) 2 %; HCT 22.1 % (39.0-53.0); Hypochromasia Slight; Lymphocytes # (A) 1.2 k/uL (1.0-4.8); Lymphocytes % (A) 8 %; MCHC 30.8 g/dL (31.0-37.0); MCV 103.7 fL (80.0-100.0); Macrocytosis Marked; Monocytes # (A) 0.7 k/uL (0-1.0); Monocytes % (A) 5 %; Neutrophils # (A) 11.4 k/uL (1.3-7.7); Neutrophils % (A) 83 %; Platelet Count 681 k/uL (150-450); RBC 2.13 m/uL (4.30-5.90); WBC 13.8 k/uL (3.8-10.6)
[2019-06-13 15:23] LABS: Polychromasia Present
[2019-06-13] MEDS ORDERED: DEXTROSE 10 % IN WATER 250 ML IV ONE (17:32)
[2019-06-13 17:33] LABS: Glucose,Whole Blood 50 mg/dL (75-99)
[2019-06-13 18:10] LABS: Glucose,Whole Blood 210 mg/dL (75-99)
[2019-06-13 20:10] LABS: Glucose,Whole Blood 134 mg/dL (75-99)
[2019-06-13 20:36] LABS: Anisocytosis Moderate; Basophils # (A) 0.1 k/uL (0-0.2); Basophils % (A) 0 %; Eosinophils # (A) 0.2 k/uL (0-0.7); Eosinophils % (A) 2 %; HCT 21.6 % (39.0-53.0); Hypochromasia Slight; Lymphocytes # (A) 1.2 k/uL (1.0-4.8); Lymphocytes % (A) 7 %; MCH 33.5 pg (25.0-35.0); MCHC 31.4 g/dL (31.0-37.0); MCV 106.8 fL (80.0-100.0); Mean Platelet Volume 7.1; Monocytes # (A) 0.9 k/uL (0-1.0); Monocytes % (A) 6 %; Neutrophils # (A) 14.1 k/uL (1.3-7.7); Neutrophils % (A) 84 %; Platelet Count 679 k/uL (150-450); RBC 2.02 m/uL (4.30-5.90); RDW 22.3 % (11.5-15.5); WBC 16.7 k/uL (3.8-10.6)
[2019-06-13 20:38] LABS: HGB 6.8 gm/dL (13.0-17.5); Macrocytosis Moderate
[2019-06-13] MEDS: PANTOPRAZOLE 40 MG/10 ML VIAL IVP SCH (20:52)
[2019-06-13] MEDS ORDERED: ATORVASTATIN 80 MG TAB PO SCH (21:00)
[2019-06-14] MEDS: SODIUM CHLORIDE 0.9% 1,000 ML IV SCH (02:18)
[2019-06-14] MEDS: LEVOTHYROXINE 125 MCG TAB PO SCH (06:00)
[2019-06-14 07:08] LABS: Glucose,Whole Blood 80 mg/dL (75-99)
[2019-06-14 08:08] VITALS: TEMP 98.5
[2019-06-14] MEDS: INSULIN ASPART (NovoLOG) 100 UNIT/ML VIAL SQ SCH ×2 (08:22→12:18)
[2019-06-14 08:25] LABS: Calcium 8.4 mg/dL (8.4-10.2)
[2019-06-14] MEDS: INSULIN DETEMIR (LEVEMIR) 100 UNIT/ML SYR SQ SCH (08:25)
[2019-06-14] MEDS: FERROUS SULFATE 325 MG TAB PO SCH (08:35)
[2019-06-14] MEDS: PANTOPRAZOLE 40 MG/10 ML VIAL IVP SCH (08:35)
[2019-06-14] MEDS: CARVEDILOL 3.125 MG TAB PO SCH (08:36)
[2019-06-14] MEDS: HYDROXYUREA 500 MG CAP PO SCH (08:36)
[2019-06-14] MEDS: LOSARTAN 50 MG TAB PO SCH (08:36)
[2019-06-14] MEDS: cloNIDine HCL 0.1 MG TAB PO SCH ×2 (08:36→15:47)
[2019-06-14] MEDS: hydrALAZINE HCL 25 MG TAB PO SCH ×2 (08:36→15:47)
[2019-06-14] MEDS: GABAPENTIN 300 MG CAP PO SCH ×2 (08:36→13:35)
[2019-06-14 08:49] LABS: Anisocytosis Moderate; HCT 25.5 % (39.0-53.0); HGB 8.2 gm/dL (13.0-17.5); Hypochromasia Slight; MCH 32.1 pg (25.0-35.0); Macrocytosis Marked; Mean Platelet Volume 6.7; Platelet Count 603 k/uL (150-450); RBC 2.55 m/uL (4.30-5.90); RDW 22.2 % (11.5-15.5)
[2019-06-14 08:51] LABS: MCV 100.2 fL (80.0-100.0)
[2019-06-14 11:10] LABS: Eosinophils # (M) 0.35 k/uL (0-0.7); Lymphocytes # (M) 1.58 k/uL (1.0-4.8); Neutrophils % (M) 82 %; Nucleated Red Blood Cells 1 /100 WBC (0-0); Total Cells Counted 200; WBC 17.5 k/uL (3.8-10.6)
[2019-06-14 11:11] LABS: Polychromasia Present
[2019-06-14] MEDS ORDERED: ASPIRIN 81 MG PO SCH (11:15)
[2019-06-14] MEDS ORDERED: CLOPIDOGREL 75 MG TAB PO SCH (11:15)
[2019-06-14 11:55] LABS: Glucose,Whole Blood 130 mg/dL (75-99)
--- NOTE | 2019-06-14 12:13 | P.PN ---
Subjective Progress Note Date: 06/14/19 Principal diagnosis: Coffee-ground emesis Denies abdominal pain. No further episodes of coffee-ground emesis or hematemesis hematochezia melena. Hemoglobin 8.2 Tolerating clear liquids. Objective - Vital Signs Vital signs: Vital Signs Temp 98.5 F 06/14/19 07:00 Pulse 61 06/14/19 07:00 Resp 16 06/14/19 07:00 BP 142/49 06/14/19 07:00 Pulse Ox 99 06/14/19 07:00 Intake & Output 06/13/19 06/14/19 06/14/19 18:59 06:59 18:59 Intake Total 790 180 Output Total 900 700 Balance -900 90 180 Intake: Oral 480 180 Blood Product 310 Rc As-1 Unit 310 [id number] Output: Urine 900 700 Other: Voiding Method Indwelling Catheter Indwelling Catheter - Exam General appearance: The patient is alert, oriented, in no acute distress. HET: Head is normocephalic and atraumatic. Pupils are equal and reactive. Oropharynx is clear without lesions. Neck: Supple without lymphadenopathy. Trachea midline. Heart: S1 S2. Regular rate and rhythm. Lungs: No crackles or wheezes are heard. Abdomen: Soft, nontender, nondistended with bowel sounds. No peritoneal signs. No palpable organomegaly or masses. Extremities: Normal skin color and turgor. No cyanosis, rash, ulceration, clubbing, or edema. Radial and pedal pulses are 2/4 bilaterally. Neurological: No focal deficits. Strength and sensation are grossly intact. - Labs CBC & Chem 7: 06/14/19 07:36 06/14/19 07:36 Labs: Abnormal Lab Results - Last 24 Hours (Table) 06/13/19 06/13/19 06/13/19 Range/Units 14:00 17:32 18:07 WBC 13.8 H (3.8-10.6) k/uL RBC 2.13 L (4.30-5.90) m/uL Hgb 7.0 L (13.0-17.5) gm/dL Hct 22.1 L (39.0-53.0) % MCV 103.7 H (80.0-100.0) fL MCHC 30.8 L (31.0-37.0) g/dL RDW 22.0 H (11.5-15.5) % Plt Count 681 H (150-450) k/uL Neutrophils # 11.4 H (1.3-7.7) k/uL Neutrophils # (Manual) (1.3-7.7) k/uL Monocytes # (Manual) (0-1.0) k/uL Nucleated RBCs (0-0) /100 WBC Macrocytosis Marked A Sodium (137-145) mmol/L Carbon Dioxide (22-30) mmol/L Glucose (74-99) mg/dL POC Glucose (mg/dL) 50 L 210 H (75-99) mg/dL Crossmatch 06/13/19 06/13/19 06/13/19 Range/Units 19:55 20:09 21:20 WBC 16.7 H (3.8-10.6) k/uL RBC 2.02 L (4.30-5.90) m/uL Hgb 6.8 L* (13.0-17.5) gm/dL Hct 21.6 L (39.0-53.0) % MCV 106.8 H (80.0-100.0) fL MCHC (31.0-37.0) g/dL RDW 22.3 H (11.5-15.5) % Plt Count 679 H (150-450) k/uL Neutrophils # 14.1 H (1.3-7.7) k/uL Neutrophils # (Manual) (1.3-7.7) k/uL Monocytes # (Manual) (0-1.0) k/uL Nucleated RBCs (0-0) /100 WBC Macrocytosis Sodium (137-145) mmol/L Carbon Dioxide (22-30) mmol/L Glucose (74-99) mg/dL POC Glucose (mg/dL) 134 H (75-99) mg/dL Crossmatch See Detail 06/14/19 06/14/19 06/14/19 Range/Units 07:36 07:36 11:54 WBC 17.5 H (3.8-10.6) k/uL RBC 2.55 L (4.30-5.90) m/uL Hgb 8.2 L (13.0-17.5) gm/dL Hct 25.5 L (39.0-53.0) % MCV 100.2 H D (80.0-100.0) fL MCHC (31.0-37.0) g/dL RDW 22.2 H (11.5-15.5) % Plt Count 603 H (150-450) k/uL Neutrophils # (1.3-7.7) k/uL Neutrophils # (Manual) 14.35 H (1.3-7.7) k/uL Monocytes # (Manual) 1.40 H (0-1.0) k/uL Nucleated RBCs 1 H (0-0) /100 WBC Macrocytosis Marked A Sodium 134 L (137-145) mmol/L Carbon Dioxide 19 L (22-30) mmol/L Glucose 73 L (74-99) mg/dL POC Glucose (mg/dL) 130 H (75-99) mg/dL Crossmatch Assessment and Plan (1) Hematemesis Current Visit: Yes Status: Acute Code(s): K92.0 - HEMATEMESIS SNOMED Code(s): 0316890 (2) Acute blood loss anemia Current Visit: Yes Status: Acute Code(s): D62 - ACUTE POSTHEMORRHAGIC ANEMIA SNOMED Code(s): 805930749 (3) Antral ulcer Current Visit: Yes Status: Acute Code(s): K25.9 - GASTRIC ULCER, UNSP ACUTE OR CHRONIC, W/O HEMOR OR PERF SNOMED Code(s): 1812809953148 (4) Upper GI bleed Current Visit: Yes Status: Acute Code(s): K92.2 - GASTROINTESTINAL HEMORRHAGE, UNSPECIFIED SNOMED Code(s): 19685441 Plan: 1. Protonix 40 mg twice daily on discharge 2 weeks then 40 mg daily. CBC monitoring. May restart aspirin Plavix. Inpatient EGD not planned at this time. Advance diet as tolerated. Discharge per medicine. We'll follow on an as-needed basis. Return to office in 3-4 weeks. Assessment and plan a care discussed with Dr. Yin
[2019-06-14] MEDS: amLODIPine 10 MG TAB PO SCH (12:19)
[2019-06-14 14:50] VITALS: BP 150/63; PULSE 58; RESP 15
--- NOTE | 2019-06-14 15:37 | P.DS ---
Providers Date of admission: 06/14/19 10:17 Expected date of discharge: 06/14/19 Attending physician: Lexus Abreu Consults: 06/13/19 11:13 Consult Physician Routine Consulting Provider: Fany Yin Consult Reason/Comments: blood in stool Do you want consulting provider notified?: Yes Primary care physician: [facility] Course: Final diagnosis Acute upper GI bleed and acute blood loss anemia from peptic ulcer disease, acute gastritis, and esophagitis. Patient will go home on Protonix 40 mg twice a day for 2 weeks and then resume Protonix 40 mg daily and follow-up with GI in 3-4 weeks. Hypovolemic hyponatremia secondary to nausea and vomiting with intravascular depletion Leukocytosis reactive secondary to GI bleed without any evidence of infection at this time Diabetes mellitus type 2 Coronary artery disease Hyperlipidemia Hypertension Seizure disorder Hypothyroidism Chronic kidney disease stage III secondary to diabetic nephropathy Discharge disposition Patient is being discharged in a stable condition with guarded prognosis back to [facility] rehab facility. Patient will follow-up with GI in the next 3-4 weeks. Patient will continue on oral Protonix 40 mg twice daily for 2 weeks and then Protonix 40 mg daily. History of present illness This is a 68-year-old male that came in with an acute upper GI bleed with nausea or vomiting. Patient denies any nausea or vomiting and has tolerated diet. No issues with any bleeding noted at this time. Patient was resumed on Plavix 75 mg daily and we will discontinue the aspirin. Patient denies any shortness of breath, chest pain, or palpitations at this time. Patient has not been having any vomiting or diarrhea on admission. Patient would like to go back to [facility] at this time. Patient has been afebrile. Patient is currently stable with a guarded prognosis and will return to [facility] at this time. On exam vital signs are stable. Blood pressure is 150/63, pulse is 58, respirat ions are 15, temp is 98.5F, oxygen saturation is 99% on room air. Cardio S1 and S2 are normal. Respiratory system is clear to auscultation. Abdomen is soft and nontender with no distention noted. Nervous system shows no focal deficits. Please refer to the medication reconciliation sheet for a list of medications Patient Condition at Discharge: Fair Plan - Discharge Summary New Discharge Prescriptions: Continue Ferrous Sulfate [Iron (65 MG Elemental)] 325 mg PO BID@0800,1700 Levothyroxine Sodium [Synthroid] 125 mcg PO DAILY Vit C/E/Zn/Coppr/Lutein/Zeaxan [Preservision Areds 2 Softgel] 2 cap PO DAILY Hydroxyurea [Hydrea] 500 mg PO MOTUWETHFR Insulin Glargine [Lantus] 15 unit SQ DAILY Carvedilol [Coreg] 3.125 mg PO BID@0800,2100 Atorvastatin [Lipitor] 80 mg PO HS@2100 hydrALAZINE HCL [Apresoline] 75 mg PO TID #90 tab cloNIDine HCL [Catapres] 0.1 mg PO TID #90 tab Menthol-Zinc Oxide Oint [Calmoseptine Oint] 1 applic TOPICAL TID amLODIPine [Norvasc] 10 mg PO DAILY@1200 Magnesium Hydroxide [Milk of Magnesia Concentrate] 7,200 mg PO DAILY PRN PRN Reason: Constipation Gabapentin [Neurontin] 300 mg PO QID 3 Days #12 cap traMADol HCL [Ultram] 50 mg PO Q6HR PRN 3 Days #12 tablet PRN Reason: Pain Bisacodyl [Dulcolax] 10 mg RECTAL DAILY PRN PRN Reason: Constipation INSULIN ASPART (NovoLOG) [NovoLOG (formulary)] See Protocol SQ ACHS Losartan [Cozaar] 50 mg PO BID@0800,1700 Clopidogrel [Plavix] 75 mg PO DAILY@1700 Na Phos,M-B/Na Phos,Di-Ba [Fleet Adult] 133 ml RECTAL DAILY PRN PRN Reason: Constipation Pantoprazole Sodium [Protonix] 40 mg PO BID 15 Days #30 Discontinued Aspirin 81 mg PO DAILY #1 tab Pantoprazole Sodium [Protonix] 40 mg PO DAILY@0800 Discharge Medication List Ferrous Sulfate [Iron (65 MG Elemental)] 325 mg PO BID@0800,1700 03/11/16 [History] Levothyroxine Sodium [Synthroid] 125 mcg PO DAILY 06/14/18 [History] Hydroxyurea [Hydrea] 500 mg PO MOTUWETHFR 01/06/19 [History] Vit C/E/Zn/Coppr/Lutein/Zeaxan [Preservision Areds 2 Softgel] 2 cap PO DAILY 01/06/19 [History] Insulin Glargine [Lantus] 15 unit SQ DAILY 03/14/19 [History] Carvedilol [Coreg] 3.125 mg PO BID@0800,2100 03/16/19 [History] Atorvastatin [Lipitor] 80 mg PO HS@2100 05/14/19 [History] cloNIDine HCL [Catapres] 0.1 mg PO TID #90 tab 05/23/19 [Rx] hydrALAZINE HCL [Apresoline] 75 mg PO TID #90 tab 05/23/19 [Rx] Magnesium Hydroxide [Milk of Magnesia Concentrate] 7,200 mg PO DAILY PRN 06/09/19 [History] Menthol-Zinc Oxide Oint [Calmoseptine Oint] 1 applic TOPICAL TID 06/09/19 [History] amLODIPine [Norvasc] 10 mg PO DAILY@1200 06/09/19 [History] Gabapentin [Neurontin] 300 mg PO QID 3 Days #12 cap 06/11/19 [Rx] traMADol HCL [Ultram] 50 mg PO Q6HR PRN 3 Days #12 tablet 06/11/19 [Rx] Bisacodyl [Dulcolax] 10 mg RECTAL DAILY PRN 06/12/19 [History] Clopidogrel [Plavix] 75 mg PO DAILY@1700 06/12/19 [History] INSULIN ASPART (NovoLOG) [NovoLOG (formulary)] See Protocol SQ ACHS 06/12/19 [History] Losartan [Cozaar] 50 mg PO BID@0800,1700 06/12/19 [History] Na Phos,M-B/Na Phos,Di-Ba [Fleet Adult] 133 ml RECTAL DAILY PRN 06/12/19 [History] Pantoprazole Sodium [Protonix] 40 mg PO BID 15 Days #30 06/14/19 [Rx] Follow up Appointment(s)/Referral(s): Julien Hardy DO [Primary Care Provider] - 1-2 days Esteban Hollis MD [STAFF PHYSICIAN] - 3 Weeks Ambulatory/Diagnostic Orders: Complete Blood Count w/diff [LAB.AMB] Time Frame: 2 Days, Location: None Selected Activity/Diet/Wound Care/Special Instructions: Patient is returning to [facility] continue current diet and advance as tolerated. Activity as tolerated follow up with GI in 3-4 weeks in outpatient office Repeat CBC in 2-3 days. Discharge Disposition: TRANSFER TO SNF/ECF
[2019-06-18 12:12] LABS: Glucose,Whole Blood 45 mg/dL (75-99)
[2019-06-18 12:12] LABS: Glucose,Whole Blood 47 mg/dL (75-99)
== END 2019-06-14 16:25 | DRG 391 ==
LOC: EC 22:55 → 4SSUR 06-13 02:23 → OBSVTOIN 06-14 10:17
PROVIDERS: ADMIT Internal Medicine; ATTEND Internal Medicine
DX: K20.9 Esophagitis, unspecified (principal); K29.01 Acute gastritis with bleeding; K25.4 Chronic or unspecified gastric ulcer with hemorrhage; D62 Acute posthemorrhagic anemia; E87.1 Hypo-osmolality and hyponatremia; E03.9 Hypothyroidism, unspecified; E11.21 Type 2 diabetes mellitus with diabetic nephropathy; E11.22 Type 2 diabetes mellitus with diabetic chronic kidney disease; E11.51 Type 2 diabetes mellitus with diabetic peripheral angiopathy without gangrene; E78.5 Hyperlipidemia, unspecified; E86.1 Hypovolemia; I25.10 Atherosclerotic heart disease of native coronary artery without angina pectoris; G40.909 Epilepsy, unspecified, not intractable, without status epilepticus; I12.9 Hypertensive chronic kidney disease with stage 1 through stage 4 chronic kidney disease, or unspecified chronic kidney disease; N18.3 Chronic kidney disease, stage 3 (moderate); Z95.1 Presence of aortocoronary bypass graft; Z95.2 Presence of prosthetic heart valve; Z98.42 Cataract extraction status, left eye; Z98.41 Cataract extraction status, right eye; Z87.891 Personal history of nicotine dependence; Z82.49 Family history of ischemic heart disease and other diseases of the circulatory system; Z79.890 Hormone replacement therapy; Z79.4 Long term (current) use of insulin; Z79.899 Other long term (current) drug therapy; Z79.02 Long term (current) use of antithrombotics/antiplatelets; I25.2 Old myocardial infarction; Z79.82 Long term (current) use of aspirin; Z85.46 Personal history of malignant neoplasm of prostate; Z86.73 Personal history of transient ischemic attack (TIA), and cerebral infarction without residual deficits
CPT/HCPCS: 36415; 80048; 80053; 82150; 83690; 85025; 86850; 86900; 86901; 86920; 93005; 99285

== ENCOUNTER 2019-06-14 22:53 | Observation (INO) | payer MEDICARE ==
[2019-06-14] MEDS ORDERED: SODIUM CHLORIDE 0.9% 1,000 ML IV STA ×2 (23:00)
[2019-06-14] MEDS ORDERED: ONDANSETRON 4 MG/2 ML VIAL IVP STA (23:00)
--- NOTE | 2019-06-14 23:01 | ED ---
Weakness HPI - General Chief complaint: Recheck/Abnormal Lab/Rx Stated complaint: abd pain Time Seen by Provider: 06/14/19 23:00 Source: EMS, RN notes reviewed, old records reviewed Mode of arrival: EMS Limitations: no limitations - History of Present Illness Initial comments: This is a 68-year-old male the ER for evaluation. Patient's not feeling well. Patient feeling weak is not feeling good all day. Patient just discharged today states he is has been feeling sick and not well all day. Denies any vomiting of blood in his stool. There is a headache chest pain stress with abdominal pain. No recent medication changes. MD Complaint: generalized weakness, lack of energy (Not feeling well), difficulty walking -: hour(s) Location: generalized Severity: moderate Severity scale (1-10): 4 Consistency: constant Improves with: none Worsens with: none Context: recent illness Associated Symptoms: loss of appetite, nausea/vomiting - Related Data Home Medications Medication Instructions Recorded Confirmed Ferrous Sulfate [Iron (65 MG 325 mg PO BID@0800,1700 03/11/16 06/14/19 Elemental)] Levothyroxine Sodium [Synthroid] 125 mcg PO DAILY 06/14/18 06/14/19 Hydroxyurea [Hydrea] 500 mg PO MOTUWETHFR 01/06/19 06/14/19 Vit C/E/Zn/Coppr/Lutein/Zeaxan 2 cap PO DAILY 01/06/19 06/14/19 [Preservision Areds 2 Softgel] Insulin Glargine [Lantus] 15 unit SQ DAILY 03/14/19 06/14/19 Carvedilol [Coreg] 3.125 mg PO BID@0800,2100 03/16/19 06/14/19 Atorvastatin [Lipitor] 80 mg PO HS@2100 05/14/19 06/14/19 Magnesium Hydroxide [Milk of 7,200 mg PO DAILY PRN 06/09/19 06/14/19 Magnesia Concentrate] Menthol-Zinc Oxide Oint 1 applic TOPICAL TID 06/09/19 06/14/19 [Calmoseptine Oint] amLODIPine [Norvasc] 10 mg PO DAILY@1200 06/09/19 06/14/19 Bisacodyl [Dulcolax] 10 mg RECTAL DAILY PRN 06/12/19 06/14/19 Clopidogrel [Plavix] 75 mg PO DAILY@1700 06/12/19 06/14/19 INSULIN ASPART (NovoLOG) [NovoLOG See Protocol SQ ACHS 06/12/19 06/14/19 (formulary)] Losartan [Cozaar] 50 mg PO BID@0800,1700 06/12/19 06/14/19 Na Phos,M-B/Na Phos,Di-Ba [Fleet 133 ml RECTAL DAILY PRN 06/12/19 06/14/19 Adult] Pantoprazole Sodium [Protonix] 40 mg PO BID 06/14/19 06/14/19 Previous Rx's Medication Instructions Recorded cloNIDine HCL [Catapres] 0.1 mg PO TID #90 tab 05/23/19 hydrALAZINE HCL [Apresoline] 75 mg PO TID #90 tab 05/23/19 Gabapentin [Neurontin] 300 mg PO QID 3 Days #12 cap 06/11/19 traMADol HCL [Ultram] 50 mg PO Q6HR PRN 3 Days #12 tablet 06/11/19 Cefuroxime Axetil [Ceftin] 500 mg PO BID 3 Days #6 tab 06/15/19 Allergies Allergy/AdvReac Type Severity Reaction Status Date / Time No Known Allergies Allergy Verified 06/14/19 23:19 Review of Systems ROS Statement: Those systems with pertinent positive or pertinent negative responses have been documented in the HPI. ROS Other: All systems not noted in ROS Statement are negative. Past Medical History Past Medical History: Coronary Artery Disease (CAD), CVA/TIA, Diabetes Mellitus, Hyperlipidemia, Hypertension, Myocardial Infarction (NE), Neurologic Disorder, Pneumonia, Seizure Disorder, Thyroid Disorder, Vascular Disorder Additional Past Medical History / Comment(s): hx. 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 [employer], HAD SOME SKIN DISEASE WHERE HIS HANDS AND FEET WOULD BLISTER/PEEL HAD BX DONE- never found cause Last Myocardial Infarction Date:: 02/17/2016 History of Any Multi-Drug Resistant Organisms: None Reported Past Surgical History: Coronary Bypass/CABG, Heart Catheterization, Heart Catheterization With Stent, Orthopedic Surgery Additional Past Surgical History / Comment(s): 02/24/16 CABG quad bypass with aortic valve replacement (TAVR), RT HAND INDEX FINGER BONE CHIP REMOVED, RT WRIST SURG., colonoscopy, bilateral cataract removal, FEMORAL ENDARECTOMY WITH ANGIOPLASTY, POPLITEAL\TIBIAL ENDARECTOMY WITH FEMORAL TBIAL BYPASS Past Anesthesia/Blood Transfusion Reactions: No Reported Reaction Date of Last Stent Placement:: 2017 Past Psychological History: No Psychological Hx Reported Smoking Status: Former smoker Past Alcohol Use History: None Reported Past Drug Use History: None Reported - Past Family History Father Family Medical History: Coronary Artery Disease (CAD) Additional Family Medical History / Comment(s): VASCULAR PROBLEMS/valve replacement. Mother Family Medical History: Coronary Artery Disease (CAD) Additional Family Medical History / Comment(s): VASCULAR PROBLEMS HAD PIG VALVE. General Exam Limitations: no limitations General appearance: alert, in no apparent distress Head exam: Present: atraumatic, normocephalic, normal inspection Eye exam: Present: normal appearance, PERRL, EOMI. Absent: scleral icterus, conjunctival injection, periorbital swelling ENT exam: Present: normal exam, mucous membranes moist Neck exam: Present: normal inspection. Absent: tenderness, meningismus, lymphadenopathy Respiratory exam: Present: normal lung sounds bilaterally. Absent: respiratory distress, wheezes, rales, rhonchi, stridor Cardiovascular Exam: Present: regular rate, normal rhythm, normal heart sounds. Absent: systolic murmur, diastolic murmur, rubs, gallop, clicks GI/Abdominal exam: Present: soft, normal bowel sounds. Absent: distended, tenderness, guarding, rebound, rigid Extremities exam: Present: normal inspection, full ROM, normal capillary refill. Absent: tenderness, pedal edema, joint swelling, calf tenderness Back exam: Present: normal inspection Neurological exam: Present: alert, oriented X3, CN II-XII intact Psychiatric exam: Present: normal affect, normal mood Skin exam: Present: warm, dry, intact, normal color. Absent: rash Course Vital Signs 06/14/19 06/14/19 22:57 23:59 Temperature 98.4 F Pulse Rate 56 L 54 L Respiratory 18 18 Rate Blood Pressure 160/56 147/50 O2 Sat by Pulse 97 97 Oximetry - Reevaluation(s) Reevaluation #1: 06/14/19 23:35 Medical record including to Hospital visits are reviewed Reevaluation #2: 06/14/19 23:38 Patient continues to feel crummy, not feeling well here in the ER EKG Findings - EKG Comments: EKG Findings:: EKG shows sinus bradycardia rate of 57, W[place] 20, QRS 112, QTc 484 Medical Decision Making - Medical Decision Making 68 male the ER for evaluation of persistent and not feeling well. Multiple recent hospital admissions for GI bleed, hemoglobin is remain stable. Patient's white count is significantly increased from prior, will admit for hydration broad-spectrum antibiotics pending cultures - Lab Data Result diagrams: 06/15/19 11:46 06/15/19 11:46 Lab Results 06/14/19 06/14/19 06/14/19 Range/Units 23:15 23:15 23:15 WBC 20.4 H (3.8-10.6) k/uL RBC 2.79 L (4.30-5.90) m/uL Hgb 8.8 L (13.0-17.5) gm/dL Hct 27.8 L (39.0-53.0) % MCV 99.6 (80.0-100.0) fL MCH 31.5 (25.0-35.0) pg MCHC 31.6 (31.0-37.0) g/dL RDW 21.9 H (11.5-15.5) % Plt Count 707 H (150-450) k/uL Neutrophils % 85 % Lymphocytes % 6 % Monocytes % 5 % Eosinophils % 2 % Basophils % 0 % Neutrophils # 17.4 H (1.3-7.7) k/uL Lymphocytes # 1.3 (1.0-4.8) k/uL Monocytes # 1.0 (0-1.0) k/uL Eosinophils # 0.4 (0-0.7) k/uL Basophils # 0.1 (0-0.2) k/uL Hypochromasia Slight Anisocytosis Moderate Macrocytosis Moderate PT (9.0-12.0) sec INR (<1.2) APTT (22.0-30.0) sec Sodium 131 L (137-145) mmol/L Potassium 3.9 (3.5-5.1) mmol/L Chloride 103 (98-107) mmol/L Carbon Dioxide 19 L (22-30) mmol/L Anion Gap 9 mmol/L BUN 17 (9-20) mg/dL Creatinine 1.21 (0.66-1.25) mg/dL Est GFR (CKD-EPI)AfAm 70 (>60 ml/min/1.73 sqM) Est GFR (CKD-EPI)NonAf 61 (>60 ml/min/1.73 sqM) Glucose 153 H (74-99) mg/dL Calcium 8.6 (8.4-10.2) mg/dL Phosphorus 3.0 (2.5-4.5) mg/dL Magnesium 2.2 (1.6-2.3) mg/dL Total Bilirubin 0.4 (0.2-1.3) mg/dL AST 13 L (17-59) U/L ALT 22 (21-72) U/L Alkaline Phosphatase 122 (38-126) U/L Troponin I (0.000-0.034) ng/mL NT-Pro-B Natriuret Pep 7740 pg/mL Total Protein 5.8 L (6.3-8.2) g/dL Albumin 3.0 L (3.5-5.0) g/dL 06/14/19 06/14/19 Range/Units 23:15 23:15 WBC (3.8-10.6) k/uL RBC (4.30-5.90) m/uL Hgb (13.0-17.5) gm/dL Hct (39.0-53.0) % MCV (80.0-100.0) fL MCH (25.0-35.0) pg MCHC (31.0-37.0) g/dL RDW (11.5-15.5) % Plt Count (150-450) k/uL Neutrophils % % Lymphocytes % % Monocytes % % Eosinophils % % Basophils % % Neutrophils # (1.3-7.7) k/uL Lymphocytes # (1.0-4.8) k/uL Monocytes # (0-1.0) k/uL Eosinophils # (0-0.7) k/uL Basophils # (0-0.2) k/uL Hypochromasia Anisocytosis Macrocytosis PT 10.0 (9.0-12.0) sec INR 0.9 (<1.2) APTT 23.7 (22.0-30.0) sec Sodium (137-145) mmol/L Potassium (3.5-5.1) mmol/L Chloride (98-107) mmol/L Carbon Dioxide (22-30) mmol/L Anion Gap mmol/L BUN (9-20) mg/dL Creatinine (0.66-1.25) mg/dL Est GFR (CKD-EPI)AfAm (>60 ml/min/1.73 sqM) Est GFR (CKD-EPI)NonAf (>60 ml/min/1.73 sqM) Glucose (74-99) mg/dL Calcium (8.4-10.2) mg/dL Phosphorus (2.5-4.5) mg/dL Magnesium (1.6-2.3) mg/dL Total Bilirubin (0.2-1.3) mg/dL AST (17-59) U/L ALT (21-72) U/L Alkaline Phosphatase (38-126) U/L Troponin I 0.015 (0.000-0.034) ng/mL NT-Pro-B Natriuret Pep pg/mL Total Protein (6.3-8.2) g/dL Albumin (3.5-5.0) g/dL - Radiology Data Radiology results: report reviewed (Chest x-rays negative for acute disease), image reviewed Disposition Clinical Impression: GI bleed, Altered mental status, Generalized weakness, Failure to thrive, Leukocytosis Disposition: ADMITTED IP TO THIS [facility] Condition: Fair Is patient prescribed a controlled substance at d/c from ED?: No
[2019-06-14 23:28] LABS: Anisocytosis Moderate; Basophils # (A) 0.1 k/uL (0-0.2); Basophils % (A) 0 %; Eosinophils # (A) 0.4 k/uL (0-0.7); Eosinophils % (A) 2 %; HCT 27.8 % (39.0-53.0); HGB 8.8 gm/dL (13.0-17.5); Hypochromasia Slight; Lymphocytes # (A) 1.3 k/uL (1.0-4.8); Lymphocytes % (A) 6 %; MCH 31.5 pg (25.0-35.0); MCHC 31.6 g/dL (31.0-37.0); MCV 99.6 fL (80.0-100.0); Macrocytosis Moderate; Mean Platelet Volume 6.9; Monocytes % (A) 5 %; Neutrophils # (A) 17.4 k/uL (1.3-7.7); Neutrophils % (A) 85 %; Platelet Count 707 k/uL (150-450); RBC 2.79 m/uL (4.30-5.90); RDW 21.9 % (11.5-15.5); WBC 20.4 k/uL (3.8-10.6)
[2019-06-14 23:36] LABS: Calcium 8.6 mg/dL (8.4-10.2); Magnesium 2.2 mg/dL (1.6-2.3); Potassium 3.9 mmol/L (3.5-5.1); Total Bilirubin 0.4 mg/dL (0.2-1.3); Total Protein 5.8 g/dL (6.3-8.2)
[2019-06-14 23:37] LABS: INR 0.9 (<1.2); Partial Thromboplastin Time 23.7 sec (22.0-30.0)
--- NOTE | 2019-06-14 23:52 | XR ---
EXAM: XR Chest, 2 Views CLINICAL HISTORY: ITS.REASON XR Reason: Weakness TECHNIQUE: Frontal and lateral views of the chest. COMPARISON: 05/19/19 FINDINGS: Lungs: No consolidation or vascular congestion. Pleural space: Unremarkable. No pneumothorax. Heart: Mild cardiomegaly. Aortic valve replacement Mediastinum: Long segment aortic calcification. Bones/joints: Sternotomy. Degenerative changes. IMPRESSION: Mild cardiomegaly with AVR. No acute pulmonary infiltrate.
[2019-06-15 00:19] LABS: Appearance,Urine Cloudy (Clear); Bacteria,Urine Moderate /hpf; Bilirubin,Urine Negative (Negative); Blood,Urine Moderate (Negative); Color,Urine Yellow; Glucose,Urine (UA) Negative (Negative); Ketones,Urine Negative (Negative); Leukocyte Esterase,Urine Large (Negative); Nitrite,Urine Negative (Negative); Protein,Urine 2+ (Negative); RBC,Urine 153 /hpf (0-5); Specific Gravity,Urine 1.009 (1.001-1.035); Urobilinogen,Urine <2.0 mg/dL (<2.0); WBC,Urine >182 /hpf (0-5)
[2019-06-15 01:44] VITALS: BMI 27.1
[2019-06-15] MEDS ORDERED: traMADol 50 MG TAB PO PRN ×2 (04:44→09:22)
[2019-06-15 07:30] LABS: Glucose,Whole Blood 147 mg/dL (75-99)
[2019-06-15 07:49] VITALS: RESP 15
[2019-06-15] MEDS ORDERED: MAGNESIUM HYDROXIDE 2,400 MG/10 ML CUP PO PRN (09:22)
[2019-06-15] MEDS ORDERED: INSULIN DETEMIR (LEVEMIR) 100 UNIT/ML SYR SQ SCH (09:30)
[2019-06-15] MEDS ORDERED: HYDROXYUREA 500 MG CAP PO SCH (09:30)
[2019-06-15] MEDS ORDERED: PANTOPRAZOLE 40 MG TABLET PO SCH (09:30)
[2019-06-15] MEDS ORDERED: SODIUM CHLORIDE 0.9% 1,000 ML IV ONE (11:41)
[2019-06-15 11:57] LABS: Glucose,Whole Blood 178 mg/dL (75-99)
[2019-06-15 11:57] LABS: Anisocytosis Moderate; HCT 23.7 % (39.0-53.0); HGB 7.6 gm/dL (13.0-17.5); Hypochromasia Slight; MCH 32.4 pg (25.0-35.0); MCV 101.4 fL (80.0-100.0); Macrocytosis Marked; Mean Platelet Volume 7.2; Platelet Count 611 k/uL (150-450); RBC 2.34 m/uL (4.30-5.90); RDW 21.8 % (11.5-15.5); WBC 20.6 k/uL (3.8-10.6)
[2019-06-15] MEDS ORDERED: amLODIPine 10 MG TAB PO SCH (12:00)
[2019-06-15 12:06] LABS: Calcium 7.6 mg/dL (8.4-10.2); Potassium 3.9 mmol/L (3.5-5.1)
[2019-06-15] MEDS ORDERED: INSULIN ASPART (NovoLOG) 100 UNIT/ML VIAL SQ SCH (12:30)
[2019-06-15] MEDS ORDERED: GABAPENTIN 300 MG CAP PO SCH (13:00)
--- NOTE | 2019-06-15 13:21 | XR ---
EXAMINATION TYPE: XR chest 1V portable DATE OF EXAM: 06/15/2019 COMPARISON: 06/14/2019 HISTORY: Weakness TECHNIQUE: Single frontal view of the chest is obtained. FINDINGS: Interstitial prominence noted with chronic rib deformities, cardiomegaly, postsurgical nelda nge and arthropathy of the shoulders. No definite consolidative process, pleural effusion or pneumoth orax. IMPRESSION: 1. Cardiomegaly and central interstitial prominence correlate for mild venous congestion.
--- NOTE | 2019-06-15 14:24 | P.DS ---
Providers Date of admission: 06/14/19 23:38 Attending physician: Kendy Camacho Primary care physician: [facility] Course: As mentioned in HPI Patient Condition at Discharge: Fair Plan - Discharge Summary Discharge Rx Participant: No New Discharge Prescriptions: New Cefuroxime Axetil [Ceftin] 500 mg PO BID 3 Days #6 tab Continue Ferrous Sulfate [Iron (65 MG Elemental)] 325 mg PO BID@0800,1700 Levothyroxine Sodium [Synthroid] 125 mcg PO DAILY Vit C/E/Zn/Coppr/Lutein/Zeaxan [Preservision Areds 2 Softgel] 2 cap PO DAILY Hydroxyurea [Hydrea] 500 mg PO MOTUWETHFR Insulin Glargine [Lantus] 15 unit SQ DAILY Carvedilol [Coreg] 3.125 mg PO BID@0800,2100 Atorvastatin [Lipitor] 80 mg PO HS@2100 hydrALAZINE HCL [Apresoline] 75 mg PO TID #90 tab cloNIDine HCL [Catapres] 0.1 mg PO TID #90 tab Menthol-Zinc Oxide Oint [Calmoseptine Oint] 1 applic TOPICAL TID amLODIPine [Norvasc] 10 mg PO DAILY@1200 Magnesium Hydroxide [Milk of Magnesia Concentrate] 7,200 mg PO DAILY PRN PRN Reason: Constipation Gabapentin [Neurontin] 300 mg PO QID 3 Days #12 cap traMADol HCL [Ultram] 50 mg PO Q6HR PRN 3 Days #12 tablet PRN Reason: Pain Bisacodyl [Dulcolax] 10 mg RECTAL DAILY PRN PRN Reason: Constipation INSULIN ASPART (NovoLOG) [NovoLOG (formulary)] See Protocol SQ ACHS Losartan [Cozaar] 50 mg PO BID@0800,1700 Clopidogrel [Plavix] 75 mg PO DAILY@1700 Na Phos,M-B/Na Phos,Di-Ba [Fleet Adult] 133 ml RECTAL DAILY PRN PRN Reason: Constipation Pantoprazole Sodium [Protonix] 40 mg PO BID Discharge Medication List Ferrous Sulfate [Iron (65 MG Elemental)] 325 mg PO BID@0800,1700 03/11/16 [History] Levothyroxine Sodium [Synthroid] 125 mcg PO DAILY 06/14/18 [History] Hydroxyurea [Hydrea] 500 mg PO MOTUWETHFR 01/06/19 [History] Vit C/E/Zn/Coppr/Lutein/Zeaxan [Preservision Areds 2 Softgel] 2 cap PO DAILY 01/06/19 [History] Insulin Glargine [Lantus] 15 unit SQ DAILY 03/14/19 [History] Carvedilol [Coreg] 3.125 mg PO BID@0800,2100 03/16/19 [History] Atorvastatin [Lipitor] 80 mg PO HS@2100 05/14/19 [History] cloNIDine HCL [Catapres] 0.1 mg PO TID #90 tab 05/23/19 [Rx] hydrALAZINE HCL [Apresoline] 75 mg PO TID #90 tab 05/23/19 [Rx] Magnesium Hydroxide [Milk of Magnesia Concentrate] 7,200 mg PO DAILY PRN 06/09/19 [History] Menthol-Zinc Oxide Oint [Calmoseptine Oint] 1 applic TOPICAL TID 06/09/19 [History] amLODIPine [Norvasc] 10 mg PO DAILY@1200 06/09/19 [History] Gabapentin [Neurontin] 300 mg PO QID 3 Days #12 cap 06/11/19 [Rx] traMADol HCL [Ultram] 50 mg PO Q6HR PRN 3 Days #12 tablet 06/11/19 [Rx] Bisacodyl [Dulcolax] 10 mg RECTAL DAILY PRN 06/12/19 [History] Clopidogrel [Plavix] 75 mg PO DAILY@1700 06/12/19 [History] INSULIN ASPART (NovoLOG) [NovoLOG (formulary)] See Protocol SQ ACHS 06/12/19 [History] Losartan [Cozaar] 50 mg PO BID@0800,1700 06/12/19 [History] Na Phos,M-B/Na Phos,Di-Ba [Fleet Adult] 133 ml RECTAL DAILY PRN 06/12/19 [History] Pantoprazole Sodium [Protonix] 40 mg PO BID 06/14/19 [History] Cefuroxime Axetil [Ceftin] 500 mg PO BID 3 Days #6 tab 06/15/19 [Rx] Follow up Appointment(s)/Referral(s): Julien Hardy DO [Primary Care Provider] - 3 Days Activity/Diet/Wound Care/Special Instructions: CBC and a BMP in 3 days
--- NOTE | 2019-06-15 14:24 | P.HPIM ---
History of Present Illness 68-year-old male was discharged from my service as today after he was evaluated for GI bleed went to the rehab facility and felt weak and well a bit lightheaded because of which. He was sent back to ER from [facility] and in ER patient is found to have leukocytosis and mild hyponatremia and patient was subsequently admitted to the hospital. Patient is feeling better today patient received IV fluids but chest x-ray showing some pulmonary edema initially gave him IV fluids IV fluids will be discontinued. Regarding his hyponatremia may be related to intravascular mild intravascular depletion but I cannot give more fluid because of concerns of pulmonary edema. Patient need to be increased to drink water at the facility and repeat basic metabolic profile need to be obtained as an outpatient. Patient urine is significant abnormal although patient denied any dysuria denied any increased urinary frequency no superpubic pain. Patient does have leukocytosis which I cannot explain because of which am going treat him lik e UTI give him a dose of Rocephin here here will be discharged on Ceftin and his urine cultures will be followed. Patient be CBC need to be repeated in 3 days as well. Patient doesn't have any evidence of GI bleed at this time. Patient the doesn't have any dark stool hematemesis and hematochezia patient was on aspirin and Plavix in the past for peripheral vascular disease. His UTI can be treated as an outpatient and do not believe patient need further hospitalization will be transferred to subacute rehabilitation today. Review of Systems REVIEW OF SYSTEMS: CONSTITUTIONAL: As mentioned in HPI HEENT: No recent visual problems or hearing problems. Denied any sore throat. CARDIOVASCULAR: No chest pain, orthopnea, PND, no palpitations, no syncope. PULMONARY: No shortness of breath, no cough, no hemoptysis. GASTROINTESTINAL: No diarrhea, no nausea, no vomiting, no abdominal pain. NEUROLOGICAL: No headaches, no weakness, no numbness. HEMATOLOGICAL: Denies any bleeding or petechiae. GENITOURINARY: Denies any burning micturition, frequency, or urgency. MUSCULOSKELETAL/RHEUMATOLOGICAL: Denies any joint pain, swelling, or any muscle pain. ENDOCRINE: Denies any polyuria or polydipsia. The rest of the 14-point review of systems is negative. Past Medical History Past Medical History: Coronary Artery Disease (CAD), CVA/TIA, Diabetes Mellitus, Hyperlipidemia, Hypertension, Myocardial Infarction ([place]), Neurologic Disorder, Pneumonia, Seizure Disorder, Thyroid Disorder, Vascular Disorder Additional Past Medical History / Comment(s): hx. 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 [employer], HAD SOME SKIN DISEASE WHERE HIS HANDS AND FEET WOULD BLISTER/PEEL HAD BX DONE- never found cause Last Myocardial Infarction Date:: 02/17/2016 History of Any Multi-Drug Resistant Organisms: None Reported Past Surgical History: Coronary Bypass/CABG, Heart Catheterization, Heart Catheterization With Stent, Orthopedic Surgery Additional Past Surgical History / Comment(s): 02/24/16 CABG quad bypass with aortic valve replacement (TAVR), RT HAND INDEX FINGER BONE CHIP REMOVED, RT WRIST SURG., colonoscopy, bilateral cataract removal, FEMORAL ENDARECTOMY WITH ANGIOPLASTY, POPLITEAL\TIBIAL ENDARECTOMY WITH FEMORAL TBIAL BYPASS, Right 5th toe amputation Past Anesthesia/Blood Transfusion Reactions: No Reported Reaction Date of Last Stent Placement:: 2017 Past Psychological History: No Psychological Hx Reported Additional Psychological History / Comment(s): PT RECENTLY ADMITTED 05/15-05/24. DISCHARGED TO [facility]. Smoking Status: Former smoker Past Alcohol Use History: None Reported Additional Past Alcohol Use History / Comment(s): STARTED SMOKING AT AGE 18 quit may 2019. USED TO DRINK DAILY (18-24 PACK OF BEER PER DAY), has not drank since 2012 Past Drug Use History: None Reported - Past Family History Father Family Medical History: Coronary Artery Disease (CAD) Additional Family Medical History / Comment(s): VASCULAR PROBLEMS/valve replacement. Mother Family Medical History: Coronary Artery Disease (CAD) Additional Family Medical History / Comment(s): VASCULAR PROBLEMS HAD PIG VALVE. Medications and Allergies Home Medications Medication Instructions Recorded Confirmed Type Ferrous Sulfate [Iron (65 MG 325 mg PO BID@0800,1700 03/11/16 06/14/19 History Elemental)] Levothyroxine Sodium [Synthroid] 125 mcg PO DAILY 06/14/18 06/14/19 History Hydroxyurea [Hydrea] 500 mg PO MOTUWETHFR 01/06/19 06/14/19 History Vit C/E/Zn/Coppr/Lutein/Zeaxan 2 cap PO DAILY 01/06/19 06/14/19 History [Preservision Areds 2 Softgel] Insulin Glargine [Lantus] 15 unit SQ DAILY 03/14/19 06/14/19 History Carvedilol [Coreg] 3.125 mg PO BID@0800,2100 03/16/19 06/14/19 History Atorvastatin [Lipitor] 80 mg PO HS@2100 05/14/19 06/14/19 History cloNIDine HCL [Catapres] 0.1 mg PO TID #90 tab 05/23/19 06/14/19 Rx hydrALAZINE HCL [Apresoline] 75 mg PO TID #90 tab 05/23/19 06/14/19 Rx Magnesium Hydroxide [Milk of 7,200 mg PO DAILY PRN 06/09/19 06/14/19 History Magnesia Concentrate] Menthol-Zinc Oxide Oint 1 applic TOPICAL TID 06/09/19 06/14/19 History [Calmoseptine Oint] amLODIPine [Norvasc] 10 mg PO DAILY@1200 06/09/19 06/14/19 History Gabapentin [Neurontin] 300 mg PO QID 3 Days #12 cap 06/11/19 06/14/19 Rx traMADol HCL [Ultram] 50 mg PO Q6HR PRN 3 Days #12 tablet 06/11/19 06/14/19 Rx Bisacodyl [Dulcolax] 10 mg RECTAL DAILY PRN 06/12/19 06/14/19 History Clopidogrel [Plavix] 75 mg PO DAILY@1700 06/12/19 06/14/19 History INSULIN ASPART (NovoLOG) [NovoLOG See Protocol SQ ACHS 06/12/19 06/14/19 History (formulary)] Losartan [Cozaar] 50 mg PO BID@0800,1700 06/12/19 06/14/19 History Na Phos,M-B/Na Phos,Di-Ba [Fleet 133 ml RECTAL DAILY PRN 06/12/19 06/14/19 History Adult] Pantoprazole Sodium [Protonix] 40 mg PO BID 06/14/19 06/14/19 History Cefuroxime Axetil [Ceftin] 500 mg PO BID 3 Days #6 tab 06/15/19 Rx Allergies Allergy/AdvReac Type Severity Reaction Status Date / Time No Known Allergies Allergy Verified 06/14/19 23:19 Physical Exam Vitals: Vital Signs Temp Pulse Pulse Resp BP BP Pulse Ox 06/15/19 08:00 15 06/15/19 07:07 98.1 F 62 15 149/54 98 06/15/19 02:05 97.7 F 56 L 18 154/65 97 06/14/19 23:59 54 L 18 147/50 97 06/14/19 22:57 98.4 F 56 L 18 160/56 97 Intake and Output 06/14/19 06/15/19 06/15/19 22:59 06:59 14:59 Intake Total 100 0 Output Total 300 Balance -200 0 Intake: Oral 100 0 Output: Urine 300 Other: Voiding Method Indwelling Catheter Indwelling Catheter Weight 86.183 kg PHYSICAL EXAMINATION: GENERAL: The patient is alert and oriented x3, not in any acute distress. Well developed, well nourished. HEENT: Pupils are round and equally reacting to light. EOMI. No scleral icterus. No conjunctival pallor. Normocephalic, atraumatic. No pharyngeal erythema. No thyromegaly. CARDIOVASCULAR: S1 and S2 present. No murmurs, rubs, or gallops. PULMONARY: Chest is clear to auscultation, no wheezing or crackles. ABDOMEN: Soft, nontender, nondistended, normoactive bowel sounds. No palpable organomegaly. MUSCULOSKELETAL: No joint swelling or deformity. EXTREMITIES: No cyanosis, clubbing, or pedal edema. NEUROLOGICAL: Gross neurological examination did not reveal any focal deficits. SKIN: No rashes. Results CBC & Chem 7: 06/15/19 11:46 06/15/19 11:46 Labs: Abnormal Lab Results - Last 24 Hours (Table) 06/14/19 06/14/19 06/15/19 Range/Units 23:15 23:15 00:00 WBC 20.4 H (3.8-10.6) k/uL RBC 2.79 L (4.30-5.90) m/uL Hgb 8.8 L (13.0-17.5) gm/dL Hct 27.8 L (39.0-53.0) % MCV (80.0-100.0) fL RDW 21.9 H (11.5-15.5) % Plt Count 707 H (150-450) k/uL Neutrophils # 17.4 H (1.3-7.7) k/uL Macrocytosis Sodium 131 L (137-145) mmol/L Carbon Dioxide 19 L (22-30) mmol/L Glucose 153 H (74-99) mg/dL POC Glucose (mg/dL) (75-99) mg/dL Calcium (8.4-10.2) mg/dL AST 13 L (17-59) U/L Total Protein 5.8 L (6.3-8.2) g/dL Albumin 3.0 L (3.5-5.0) g/dL Urine Protein 2+ H (Negative) Urine Blood Moderate H (Negative) Ur Leukocyte Esterase Large H (Negative) Urine RBC 153 H (0-5) /hpf Urine WBC >182 H (0-5) /hpf Urine WBC Clumps Many H (None) /hpf Urine Bacteria Moderate H (None) /hpf 06/15/19 06/15/19 06/15/19 Range/Units 07:18 11:46 11:46 WBC 20.6 H (3.8-10.6) k/uL RBC 2.34 L (4.30-5.90) m/uL Hgb 7.6 L (13.0-17.5) gm/dL Hct 23.7 L (39.0-53.0) % MCV 101.4 H (80.0-100.0) fL RDW 21.8 H (11.5-15.5) % Plt Count 611 H (150-450) k/uL Neutrophils # (1.3-7.7) k/uL Macrocytosis Marked A Sodium 131 L (137-145) mmol/L Carbon Dioxide 16 L (22-30) mmol/L Glucose 167 H (74-99) mg/dL POC Glucose (mg/dL) 147 H (75-99) mg/dL Calcium 7.6 L (8.4-10.2) mg/dL AST (17-59) U/L Total Protein (6.3-8.2) g/dL Albumin (3.5-5.0) g/dL Urine Protein (Negative) Urine Blood (Negative) Ur Leukocyte Esterase (Negative) Urine RBC (0-5) /hpf Urine WBC (0-5) /hpf Urine WBC Clumps (None) /hpf Urine Bacteria (None) /hpf 06/15/19 Range/Units 11:55 WBC (3.8-10.6) k/uL RBC (4.30-5.90) m/uL Hgb (13.0-17.5) gm/dL Hct (39.0-53.0) % MCV (80.0-100.0) fL RDW (11.5-15.5) % Plt Count (150-450) k/uL Neutrophils # (1.3-7.7) k/uL Macrocytosis Sodium (137-145) mmol/L Carbon Dioxide (22-30) mmol/L Glucose (74-99) mg/dL POC Glucose (mg/dL) 178 H (75-99) mg/dL Calcium (8.4-10.2) mg/dL AST (17-59) U/L Total Protein (6.3-8.2) g/dL Albumin (3.5-5.0) g/dL Urine Protein (Negative) Urine Blood (Negative) Ur Leukocyte Esterase (Negative) Urine RBC (0-5) /hpf Urine WBC (0-5) /hpf Urine WBC Clumps (None) /hpf Urine Bacteria (None) /hpf Thrombosis Risk Factor Assmnt - Choose All That Apply Any of the Below Risk Factors Present?: Yes Each Factor Represents 1 point: History of prior major surgery (<1month) Other Risk Factors: Yes Each Risk Factor Represents 2 Points: Age 61-74 years, Major surgery Other congenital or acquired thrombophilia - If yes, enter type in comment: No Thrombosis Risk Factor Assessment Total Risk Factor Score: 5 Thrombosis Risk Factor Assessment Level: High Risk Assessment and Plan Plan: -Generalized weakness and tiredness: There is no clear-cut evidence of infection that may be mild dehydration further management as mentioned above although I cannot completely rule out urinary tract infection considering his unexplained leukocytosis without any fever but does have significantly abnormal urine with highly elevated white blood cell count. Patient will be on empiric antibiotics can be discharged on this patient is feeling better wanted to go back to subacute rehabilitation today. -Recent upper GI bleed from peptic ulcer disease and gastritis which resolved no evidence of active bleeding at this time hemoglobin remained stable -Lightheadedness may be due to intravascular volume depletion and further management as mentioned in the interval history -mild acute renal failure patient need to be increased to drink water probably feel azotemia -Mild hypovolemic hyponatremia further management as mentioned in the interval history -Coronary artery disease -Type 2 diabetes mellitus -Hypertension -Seizure disorder -Hypothyroidism Patient will be discharged back to subacute rehabilitation today
[2019-06-15 15:48] VITALS: BP 137/70; PULSE 60; TEMP 98.3
[2019-06-15] MEDS ORDERED: hydrALAZINE HCL 25 MG TAB PO SCH (16:00)
[2019-06-15] MEDS ORDERED: MENTHOL-ZINC OXIDE OINT 113 GM TUBE TOPICAL SCH (16:00)
[2019-06-15] MEDS ORDERED: cloNIDine HCL 0.1 MG TAB PO SCH (16:00)
[2019-06-15] MEDS ORDERED: LOSARTAN 50 MG TAB PO SCH (17:00)
[2019-06-15] MEDS ORDERED: CLOPIDOGREL 75 MG TAB PO SCH (17:00)
[2019-06-15] MEDS ORDERED: FERROUS SULFATE 325 MG TAB PO SCH (17:00)
[2019-06-15] MEDS ORDERED: CARVEDILOL 3.125 MG TAB PO SCH (21:00)
[2019-06-15] MEDS ORDERED: ATORVASTATIN 80 MG TAB PO SCH (21:00)
[2019-06-16] MEDS ORDERED: LEVOTHYROXINE 125 MCG TAB PO SCH (06:30)
[2019-06-16] MEDS ORDERED: VIT A,C & E-LUTEIN-MINERALS 1 EACH TAB PO SCH (09:00)
== END 2019-06-15 16:16 ==
LOC: EC 22:53 → 4SSUR 23:38
PROVIDERS: ADMIT Hospitalist; ATTEND Hospitalist
DX: N39.0 Urinary tract infection, site not specified (principal); R62.7 Adult failure to thrive; E87.1 Hypo-osmolality and hyponatremia; E03.9 Hypothyroidism, unspecified; E78.5 Hyperlipidemia, unspecified; E86.1 Hypovolemia; N17.9 Acute kidney failure, unspecified; G40.909 Epilepsy, unspecified, not intractable, without status epilepticus; I10 Essential (primary) hypertension; D50.9 Iron deficiency anemia, unspecified; E11.51 Type 2 diabetes mellitus with diabetic peripheral angiopathy without gangrene; I25.10 Atherosclerotic heart disease of native coronary artery without angina pectoris; I25.2 Old myocardial infarction; Z85.46 Personal history of malignant neoplasm of prostate; Z86.73 Personal history of transient ischemic attack (TIA), and cerebral infarction without residual deficits; Z87.11 Personal history of peptic ulcer disease; Z87.891 Personal history of nicotine dependence; Z95.1 Presence of aortocoronary bypass graft; Z95.2 Presence of prosthetic heart valve; Z98.42 Cataract extraction status, left eye; Z98.41 Cataract extraction status, right eye; Z79.02 Long term (current) use of antithrombotics/antiplatelets; Z79.4 Long term (current) use of insulin; Z79.890 Hormone replacement therapy; Z79.899 Other long term (current) drug therapy; Z82.49 Family history of ischemic heart disease and other diseases of the circulatory system; Z87.19 Personal history of other diseases of the digestive system
CPT/HCPCS: 96365; 96375; 99284; 36415; 93005; 97162; 97166; 83880; 80053; 80048; 83735; 84100; 84484; 85025; 85027; 85610; 85730; 81001; 71045; 71046; G0378 ×2; S0176; J2405; J0696